=== PATIENT | female | born 1935 | race Caucasian/White ===

== ENCOUNTER → 2017-03-11 | Outpatient (CLI) | payer MEDICARE, BC ==
[~2017-03-11] MED LIST: AMLO5TAB2 PO; ASPI81CH CHEW; CARA1TAB6 PO; FINA1TAB16 PO; FINA5TAB2 PO; GENT0.3G EACH EYE; HYDR-3516 PO; ISOS30TA15; ISOS30TA3 PO; LIDO1PAD52 TOPICAL; NORC5TAB PO; PANT40TA3 PO; PERC7.5T13 PO; PRAV20TA2 PO; PRED1SUS RIGHT EYE; REST0.05 EACH EYE; TOBRSUS9 LEFT EYE; VALA500T PO
== END ==
LOC: OLAB 11:20
DX: R14.0 Abdominal distension (gaseous) (principal)

== ENCOUNTER → 2017-03-13 | Outpatient (CLI) | payer MEDICARE, BC | LOC: OLAB 11:12 | DX: K30 Functional dyspepsia (principal) | CPT/HCPCS: 36415; 82784; 83516; 87338 ==

== ENCOUNTER 2017-03-31 18:11 | Observation (INO) | payer MEDICARE, BC ==
[~2017-03-31] VITALS: Ht 165.1 cm; Wt 76.7 kg
[~2017-03-31 18:11] MED LIST changes: -CARA1TAB6 PO; -FINA1TAB16 PO; -ISOS30TA3 PO; -LIDO1PAD52 TOPICAL; -NORC5TAB PO; -PANT40TA3 PO; -PERC7.5T13 PO; -PRAV20TA2 PO
[2017-03-31 18:25] VITALS: BP 173/74; PULSE 85; RESP 20; TEMP 99.5; O2SAT 97
[2017-03-31] MEDS ORDERED: SODIUM CHLOR 0.9% 1000 ML INJ 1,000 ML IV SCH (18:27)
[2017-03-31] MEDS ORDERED: FAMOTIDINE 20 MG/2 ML VIAL IV PUSH ONE (18:30)
[2017-03-31] MEDS ORDERED: ONDANSETRON HCL 4 MG/2 ML VIAL IVP ONE (18:30)
[2017-03-31] MEDS ORDERED: MORPHINE SULFATE 4 MG/ML INJ IV PUSH ONE (18:30)
[2017-03-31 18:32] VITALS: BP 173/74; PULSE 84; RESP 20; TEMP 99.5; O2SAT 95
[2017-03-31 18:37] VITALS: RESP 18; O2SAT 96
[2017-03-31] MEDS ORDERED: CARA1TAB6 PO (18:45)
[2017-03-31] MEDS ORDERED: LIDO1PAD52 TOPICAL (18:45)
[2017-03-31] MEDS ORDERED: PRAV20TA2 PO (18:45)
[2017-03-31] MEDS ORDERED: NORC5TAB PO (18:45)
[2017-03-31] MEDS ORDERED: FINA1TAB16 PO (18:45)
[2017-03-31] MEDS ORDERED: PANT40TA3 PO (18:45)
[2017-03-31] MEDS ORDERED: ISOS30TA3 PO (18:45)
--- NOTE | 2017-03-31 18:48 | PD ---
HPI Chief Complaint: Pain: Acute or Chronic Time Seen by Provider: 18:16 Travel History International Travel<30 days: No Contact w/Intl Traveler<30days: No Traveled to known affect area: No History of Present Illness HPI 81-year-old female complains of chest pain epigastric pain and neck pain and shortness of breath and generalized malaise and weakness. Patient states that the symptoms started several days ago. Patient states that she started having substernal chest pressure intermittently and pain between the shoulder blades and the neck for the past several days. Patient has history of Sjogren syndrome. Patient has history of recurrent esophageal pain. Patient status post endoscopy 5 days ago. Patient was told that she has inflammation to the esophagus and stomach. Patient status post right partial lobectomy in the past. Patient has history hypertension, hyperlipidemia. Patient is a nonsmoker. Patient has family history of heart disease. Patient has history of CAD status post stents placement. Patient denies any headache. Patient denies nausea vomiting diarrhea. Patient denies any dysuria or frequency. Patient denies any vaginal discharge or bleeding. PFSH Past Medical History Asthma: No Autoimmune Disease: Yes (RHEUMATOID ARTHRITIS) Blood Disorders: No Heart Rhythm Problems: No Cancer: Yes Cardiac Catheterization: No Cardiovascular Problems: Yes (STENTS X 2, CAD ) High Cholesterol: No Chest Pain: No Congestive Heart Failure: No COPD: No Diabetes: No Diminished Hearing: No Diverticulitis: Yes (UNSURE) Endocrine: No Gastrointestinal Disorders: Yes (DIVERTICULITIS) GERD: No Genitourinary: No Hepatitis: No Hiatal Hernia: Yes Hypertension: Yes Immune Disorder: No Musculoskeletal: No Neurologic: No Psychiatric: No Reproductive: No Respiratory: Yes (RIGHT LOWER LOBE LOBECTOMY ) Sleep Apnea: No Thyroid Disease: No Ulcer: No Menopausal: Yes Past Surgical History Abdominal Surgery: Yes (appy) AICD: No Appendectomy: Yes Cardiac Surgery: Yes (2 cardiac stents) Coronary Artery Bypass Graft: No Ear Surgery: Yes (TUBES BOTH EARS) Endocrine Surgery: No Eye Surgery: No Genitourinary Surgery: No Gynecologic Surgery: Yes (hysterectomy 1970) Hysterectomy: Yes Joint Replacement: No Oral Surgery: No Pacemaker: No Thoracic Surgery: Yes (R LOWER LOBE LUNG REMOVED) Other Surgery: Yes (BILATERAL BREAST BX) Social History Alcohol Use: Yes (rarely) Tobacco Use: No Substance Use: No Allergies-Medications (Allergen,Severity, Reaction): Coded Allergies: Sulfa (Sulfonamide Antibiotics) (Unverified Allergy, Severe, Anaphylaxis, 02/04/17) amoxicillin (Unverified Allergy, Mild, nausea, 02/04/17) codeine (Unverified Allergy, Mild, constipation, 02/04/17) Reported Meds & Prescriptions Reported Meds & Active Scripts Active Restasis Opth 0.05% (Cyclosporine Opth 0.05%) 0.05% Emul 1 Drop EACH EYE BID Pred Forte Opth 1% (Prednisolone Acetate Opth 1%) 1% Susp 1 Drop RIGHT EYE BID Tobramycin-Dexamethasone Opth Drops 0.3-0.1 % Susp 1 Drop LEFT EYE QID Hydrocodone-Acetaminophen 5-325 mg Tab 1 Tab PO Q4H PRN Reported Valacyclovir (Valacyclovir HCl) 500 Mg Tab 500 Mg PO DIRECTED Genteal Severe Opth Gel (Hypromellose) 0.25-0.3% Gel 1 Drop EACH EYE HS PRN Isosorbide Dinitrate 30 Mg Tab Finasteride 5 Mg Tab 5 Mg PO DAILY Do not crush. Aspirin 81 Mg Chew 81 Mg CHEW DAILY Amlodipine (Amlodipine Besylate) 5 Mg Tab 5 Mg PO DAILY Review of Systems General / Constitutional: No: Fever Eyes: No: Visual changes HENT: No: Headaches Cardiovascular: Positive: Chest Pain or Discomfort Respiratory: Positive: Shortness of Breath Gastrointestinal: Positive: Abdominal Pain Genitourinary: No: Dysuria Musculoskeletal: No: Pain Skin: No Rash Neurologic: No: Weakness Psychiatric: No: Depression Endocrine: No: Polydipsia Hematologic/Lymphatic: No: Easy Bruising Physical Exam Narrative GENERAL: Well-nourished, well-developed patient. SKIN: Focused skin assessment warm/dry. HEAD: Normocephalic. EYES: No scleral icterus. No injection or drainage. NECK: Supple, trachea midline. No JVD or lymphadenopathy. CARDIOVASCULAR: Regular rate and rhythm without murmurs, gallops, or rubs. RESPIRATORY: Breath sounds equal bilaterally. No accessory muscle use. GASTROINTESTINAL: Abdomen soft, nondistended. Mild tenderness on palpation epigastric area. No rebound tenderness. No mass. MUSCULOSKELETAL: No cyanosis, or edema. BACK: Nontender without obvious deformity. No CVA tenderness. neurologic exam normal. Data Data Last Documented VS Vital Signs Date Time Temp Pulse Resp B/P (MAP) Pulse Ox O2 Delivery O2 Flow Rate FiO2 03/31/17 18:25 99.5 85 20 173/74 (107) 97 Orders Orders Complete Blood Count With Diff (03/31/17) Comprehensive Metabolic Panel (03/31/17) Prothrombin Time / Inr (Pt) (03/31/17:) Act Partial Throm Time (Ptt) (03/31/17:) Urinalysis - C+S If Indicated (03/31/17) Ct Abd/Pel W Iv Contrast(Rout) (03/31/17:) Iv Access Insert/Monitor (03/31/17) Ecg Monitoring (03/31/17) Oximetry (03/31/17) Morphine Inj (Morphine Inj) (03/31/17 18:30) Ondansetron Inj (Zofran Inj) (03/31/17 18:30) Sodium Chlor 0.9% 1000 Ml Inj (Ns 1000 M (03/31/17:) Electrocardiogram (03/31/17:) Famotidine Inj (Pepcid Inj) (03/31/17 18:30) Ct Pulmonary Angiogram (03/31/17:) MDM Medical Decision Making Medical Screen Exam Complete: Yes Emergency Medical Condition: Yes Differential Diagnosis Differential diagnosis including angina, OK, PE, pneumothorax, esophagitis, gastritis, PUD, pancreatitis, cholecystitis, colitis, UTI, pyelonephritis, nephrolithiasis. Narrative Course 81-year-old female with epigastric pain, substernal chest pain, neck pain upper back pain. History of Sjogren syndrome status post endoscopy. Lucien Doran MD Mar 31, 2017 18:48
--- NOTE | 2017-03-31 19:19 | PD ---
Physical Exam Narrative General: The patient is a well-developed well-nourished female in no acute distress. Head and Neck exam: Head is normocephalic atraumatic. Eyes: EOMI, pupils are equal round and reactive to light. Nose: Midline septum with pink mucous membranes Mouth: Dentition unremarkable. Tacky mucus membranes, however the patient does have a history of Sjogren's. Posterior oropharynx is not erythematous. No tonsillar hypertrophy. Uvula midline. Airway patent. Neck: No palpable lymphadenopathy. No nuchal rigidity. No thyromegaly. Cardiovascular: Regular rate and rhythm without murmurs, gallops, or rubs. . Lungs: Clear to auscultation bilaterally. No wheezes, rhonchi, or rales. Abdomen: Soft, with minimal discomfort on palpation of the midepigastric area. No other tenderness on palpation of the other quadrants of the abdomen. No guarding, rebound, or rigidity. Normal bowel sounds are audible. No tenderness on palpation of McBurney's point. Extremities: No clubbing, cyanosis, or edema. 2+ pulses in all 4 extremities. No calf tenderness on palpation. Back: No costovertebral angle tenderness to palpation. Neurologic Exam: Grossly nonfocal. Skin Exam: No rash noted. Intact skin that is warm and dry. Data Data Last Documented VS Vital Signs Date Time Temp Pulse Resp B/P (MAP) Pulse Ox O2 Delivery O2 Flow Rate FiO2 03/31/17 18:37 18 96 Room Air 03/31/17 18:32 89 03/31/17 18:32 99.5 Orders Orders Complete Blood Count With Diff (03/31/17 18:) Comprehensive Metabolic Panel (03/31/17 18:) Prothrombin Time / Inr (Pt) (03/31/17 18:) Act Partial Throm Time (Ptt) (03/31/17 18:27) Urinalysis - C+S If Indicated (03/31/17 18:) Ct Abd/Pel W Iv Contrast(Rout) (03/31/17 18:27) Iv Access Insert/Monitor (03/31/17 18:27) Ecg Monitoring (03/31/17 18:) Oximetry (03/31/17 18:27) Morphine Inj (Morphine Inj) (03/31/17 18:30) Ondansetron Inj (Zofran Inj) (03/31/17 18:30) Sodium Chlor 0.9% 1000 Ml Inj (Ns 1000 M (03/31/17 18:27) Electrocardiogram (03/31/17 18:27) Famotidine Inj (Pepcid Inj) (03/31/17 18:30) Ct Pulmonary Angiogram (03/31/17 18:27) B-Type Natriuretic Peptide (03/31/17 20:14) Ckmb (Isoenzyme) Profile (03/31/17 18:47) Troponin I (03/31/17 18:47) Iohexol 350 Inj (Omnipaque 350 Inj) (03/31/17 20:37) Morphine Inj (Morphine Inj) (03/31/17 21:00) Acetaminophen (Tylenol) (03/31/17 21:00) Admit Order (Ed Use Only) (03/31/17 21:10) Labs Laboratory Tests Test 03/31/17 18:47 White Blood Count 5.5 TH/MM3 Red Blood Count 3.39 MIL/MM3 Hemoglobin 10.5 GM/DL Hematocrit 30.8 % Mean Corpuscular Volume 91.0 FL Mean Corpuscular Hemoglobin 30.9 PG Mean Corpuscular Hemoglobin Concent 34.0 % Red Cell Distribution Width 12.9 % Platelet Count 191 TH/MM3 Mean Platelet Volume 7.6 FL Neutrophils (%) (Auto) 78.2 % Lymphocytes (%) (Auto) 10.0 % Monocytes (%) (Auto) 8.8 % Eosinophils (%) (Auto) 2.7 % Basophils (%) (Auto) 0.3 % Neutrophils # (Auto) 4.3 TH/MM3 Lymphocytes # (Auto) 0.5 TH/MM3 Monocytes # (Auto) 0.5 TH/MM3 Eosinophils # (Auto) 0.1 TH/MM3 Basophils # (Auto) 0.0 TH/MM3 CBC Comment DIFF FINAL Differential Comment Prothrombin Time 10.7 SEC Prothromb Time International Ratio 1.0 RATIO Activated Partial Thromboplast Time 31.8 SEC Blood Urea Nitrogen 12 MG/DL Creatinine 0.67 MG/DL Random Glucose 96 MG/DL Total Protein 6.8 GM/DL Albumin 3.0 GM/DL Calcium Level 8.8 MG/DL Alkaline Phosphatase 92 U/L Aspartate Amino Transf (AST/SGOT) 28 U/L Alanine Aminotransferase (ALT/SGPT) 32 U/L Total Bilirubin 0.3 MG/DL Sodium Level 138 MEQ/L Potassium Level 3.4 MEQ/L Chloride Level 100 MEQ/L Carbon Dioxide Level 27.3 MEQ/L Anion Gap 11 MEQ/L Estimat Glomerular Filtration Rate 85 ML/MIN Total Creatine Kinase 42 U/L Troponin I LESS THAN 0.02 NG/ML MDM Medical Record Reviewed: Yes Supervised Visit with ELODIA: No Narrative Course During the course of the patients emergency department visit, the patients history, examination, and differential diagnosis were reviewed with the patient. The patient had IV access obtained and blood work sent for analysis. The patient is on a personnel monitor with oximetry and blood pressure monitoring. An ECG was done on arrival. The patient's EKG shows a sinus rhythm without any acute ST segment elevation. The patient was initially evaluated by Dr. Doran. Please see his complete history and physical. The patient's case was checked out to me at the conclusion of his shift. The patient was initially provided famotidine 20 mg IV, Zofran 4 mg IV, morphine 2 mg IV, normal saline at 125 mL per hour. The patients laboratory studies were reviewed and remarkable for a white count of 5.5, hemoglobin 10.5, platelets 191 with 78.2 neutrophils, monocytes 8.8. CMP is remarkable for potassium of 3.4, GFR of 85, albumin 3.0, PT 10.7, PTT 31.8. CPK is 42, troponin I less than 0.02. Radiology studies were reviewed and remarkable for a CTA to rule out PE or evidence of pneumomediastinum related to endoscopy is negative for PE or pneumomediastinum. Stable bilateral lung nodules are noted. Recommend follow- up CT in [address] scan of the abdomen and pelvis shows no evidence of acute abdominal or pelvic process. No masses are identified, nonobstructing left renal stones, 11 mm nodule left lung base, PET scan/CT scan is recommended to further evaluate if clinically indicated. I discussed the patient's case further with the patient. She reports that she had a cardiac catheterization with 2 stents placed 3 years ago. She cannot recall when she last had a stress test although she denies having one done in the last year. She is agreeable with the plan to proceed with admission to the chest pain center for rule out serial cardiac enzyme protocol and stress testing to further evaluate the cause of her chest pain. The patients results were discussed with the patient, including the plan of care. I explained that further testing and/ or monitoring is indicated based on the patients history, examination, and/ or laboratory findings. Therefore, I recommended admission for additional evaluation. The patient expressed understanding and was agreeable with this plan. The patient was admitted to the hospital in stable condition and sent to a bed under the care of the chest pain center. Diagnosis Primary Impression: Chest pain, rule out acute myocardial infarction Admitting Information Admitting Physician Requests: Observation Colette Shin MD Mar 31, 2017 19:19
[2017-03-31 19:29] LABS: AUTOMATED NEUTROPHIL # 4.3 TH/MM3 (1.8-7.7); BASOPHIL % 0.3 % (0.0-2.0); EOSINOPHIL # 0.1 TH/MM3 (0-0.4); EOSINOPHIL % 2.7 % (0.0-4.0); HEMATOCRIT 30.8 % (35.0-46.0); HEMO FLAGS DIFF FINAL; LYMPHOCYTE # 0.5 TH/MM3 (1.0-4.8); MEAN CORPUSCULAR HEMOGLOBIN 30.9 PG (27.0-34.0); MONO % 8.8 % (0.0-8.0); NEUT % 78.2 % (16.0-70.0); PLATELET COUNT 191 TH/MM3 (150-450); RED BLOOD COUNT 3.39 MIL/MM3 (4.00-5.30); RED CELL DISTRIBUTION WIDTH 12.9 % (11.6-17.2); WHITE BLOOD COUNT 5.5 TH/MM3 (4.0-11.0)
[2017-03-31 19:42] LABS: APTT (PATIENT) 31.8 SEC (24.3-30.1); PROTHROMBIN TIME - PATIENT 10.7 SEC (9.8-11.6)
[2017-03-31 19:49] LABS: ANION GAP 11 MEQ/L (5-15); AST (GOT) 28 U/L (15-37); BICARBONATE 27.3 MEQ/L (21.0-32.0); BLOOD UREA NITROGEN 12 MG/DL (7-18); CHLORIDE 100 MEQ/L (98-107); GLOMERULAR FILTRATION RATE 85 ML/MIN (>89); POTASSIUM 3.4 MEQ/L (3.5-5.1); SODIUM (NA) 138 MEQ/L (136-145)
[2017-03-31 19:53] LABS: ALKALINE PHOSPHATASE 92 U/L (45-117); ALT (GPT) 32 U/L (10-53); TOTAL BILIRUBIN ADULT 0.3 MG/DL (0.2-1.0)
[2017-03-31 20:20] VITALS: BP 156/69; PULSE 88; RESP 20; TEMP 98.3; O2SAT 95
[2017-03-31] MEDS ORDERED: IOHEXOL 350 MG/ML 10 ML VIAL (for RAD DIAG) IVCONTRAST ONE (20:37)
[2017-03-31 20:38] LABS: CREATINE KINASE 42 U/L (26-192)
--- NOTE | 2017-03-31 20:47 | RADRPT ---
EXAM DATE/TIME: 03/31/2017 20:23 [facility] COMPARISON: CHEST SINGLE AP, May 21, 2016, 18:20. CT PULMONARY ANGIOGRAM, May 21, 2016, 19:26. INDICATIONS : Substernal chest pain and shortness of breath for five days. IV CONTRAST: 84 cc Omnipaque 350 (iohexol) IV RADIATION DOSE: 10.27 CTDIvol (mGy) MEDICAL HISTORY : Hypertension. Hernia, hiatal. SURGICAL HISTORY : Appendectomy. Hysterectomy. ENCOUNTER: Initial ACUITY: 4 - 6 days PAIN SCALE: 5/10 LOCATION: substernal chest TECHNIQUE: Volumetric scanning of the chest was performed using a pulmonary embolism protocol MIP images were re constructed. Using automated exposure control and adjustment of the mA and/or kV according to patien t size, radiation dose was kept as low as reasonably achievable to obtain optimal diagnostic quality images. DICOM format image data is available electronically for review and comparison. Follow-up recommendations for detected pulmonary nodules are based at a minimum on nodule size and pa tient risk factors according to Fleischner Society Guidelines. FINDINGS: Examination of the pulmonary vasculature demonstrates good filling of the main, lobar and segmental b ranches. There are no filling defects to suggest pulmonary embolism. Multiplanar reconstructions are also unremarkable. Multiple pneumatoceles are present the largest measuring 2 cm. There is subsegmental atelectasis in the both bases. A small right sided effusion is present. There are stable nodules in the right lower lobe and left upper lobe. Examination of the mediastinum demonstrates no abnormally enlarged lymph nodes by CT criteria. No axi llary or hilar abnormalities are identified. Coronary artery calcifications are present. There is sta ble soft tissue density in the right hilum and infrahilar region unchanged from 2016 The visualized u pper abdomen demonstrates no abnormality. CONCLUSION: 1. No evidence of pulmonary embolism. 2. Stable 6 mm nodules bilaterally. Followup examination in one year is recommended Jraad Cobian MD on March 31, 2017 at 20:41 Board Certified Radiologist. This report was verified electronically.
[2017-03-31] MEDS ORDERED: ACETAMINOPHEN 325 MG TAB PO ONE (21:00)
[2017-03-31] MEDS ORDERED: MORPHINE SULFATE 2 MG/ML INJ IV PUSH ONE (21:00)
--- NOTE | 2017-03-31 21:02 | RADRPT ---
EXAM DATE/TIME: 03/31/2017 20:23 [facility] COMPARISON: CT PULMONARY ANGIOGRAM, May 21, 2016, 19:26. INDICATIONS : Epigastric pain for five days. IV CONTRAST: 84 cc Omnipaque 350 (iohexol) IV ; Cumulative dose for multiple exams. ORAL CONTRAST: No oral contrast ingested. RADIATION DOSE: 15.87 CTDIvol (mGy) ; Combined studies MEDICAL HISTORY : Hypertension. Hernia, hiatal. SURGICAL HISTORY : Hysterectomy. Appendectomy. ENCOUNTER: Initial ACUITY: 4 - 6 days PAIN SCALE: 5/10 LOCATION: epigastric abdomen TECHNIQUE: Volumetric scanning of the abdomen and pelvis was performed. Using automated exposure control and ad justment of the mA and/or kV according to patient size, radiation dose was kept as low as reasonably achievable to obtain optimal diagnostic quality images. DICOM format image data is available electro nically for review and comparison. FINDINGS: A small right sided effusion is present. There is a 11 mm nodule in the left base. PET/CT scan is rec ommended to further evaluation if clinically indicated. The liver and spleen are normal in size and n o focal defects are identified. The gallbladder and pancreas are unremarkable. No intrahepatic or ext rahepatic ductal dilatation is seen. The adrenal glands are unremarkable. Bilateral parapelvic cysts are present in the kidneys. There are multiple stones within the left kidney without hydronephrosis t he largest measuring 4 mm in the lower pole. Examination of the pelvis demonstrates no evidence of free fluid or pelvic mass. No abnormally enlarg ed inguinal or retroperitoneal lymph nodes are present. The bladder is unremarkable. There is diverti culosis without evidence of diverticulitis. CONCLUSION: 1. No evidence of acute abdominal or pelvic process. No masses are identified. 2. Nonobstructing left renal stones 3. 11 mm nodule left base. PET/CT scan is recommended to further evaluation if clinically indicated. Jarad Cobian MD on March 31, 2017 at 20:54 Board Certified Radiologist. This report was verified electronically.
[2017-03-31] MEDS ORDERED: SODIUM CHLORIDE 0.9% FLUSH 10 ML FLUSH IV FLUSH PRN (21:30)
[2017-03-31 21:47] VITALS: O2SAT 97
[2017-04-01] VITALS: BP 152/62; PULSE 82; RESP 19; TEMP 98.5; O2SAT 98
[2017-04-01] MEDS: ACETAMINOPHEN 500 MG CPLT PO PRN ×3 (00:14→10:14)
[2017-04-01 04:00] VITALS: BP 149/68; PULSE 86; RESP 22; TEMP 98.4; O2SAT 98
--- NOTE | 2017-04-01 07:18 | EKG ---
Date Performed: 03/31/2017 Time Performed: 18:45:50 PTAGE: 81 years EKG: Sinus rhythm NORMAL ECG Since PREVIOUS TRACING , no significant change noted PREVIOUS TRACIN05/21/2016 18.24 DOCTOR: Nuha Osei Interpretating Date/Time 04/01/2017 07:18:08
[2017-04-01 08:02] VITALS: BP 163/72; PULSE 84; RESP 19; TEMP 98.2; O2SAT 95
[2017-04-01 08:45] LABS: CREATINE KINASE 55 U/L (26-192)
[2017-04-01] MEDS ORDERED: FAMOTIDINE 20 MG TAB PO SCH (09:00)
[2017-04-01] MEDS ORDERED: SODIUM CHLORIDE 0.9% FLUSH 10 ML FLUSH IV FLUSH SCH (09:00)
[2017-04-01] MEDS ORDERED: ISOSORBIDE MONONITRATE 30 MG TAB PO SCH (09:15)
[2017-04-01] MEDS ORDERED: amLODIPine BESYLATE 5 MG TAB PO SCH (09:15)
[2017-04-01] MEDS ORDERED: PANTOPRAZOLE SOD 40 MG DELAYED RELEASE TAB PO SCH (09:15)
[2017-04-01] MEDS ORDERED: POTASSIUM CHLORIDE 20 MEQ CONTROLLED RELEASE TAB PO ONE (09:15)
--- NOTE | 2017-04-01 09:20 | HHI.HP ---
HPI Primary Care Physician Unknown Chief Complaint Abdominal pain History of Present Illness This is an 81-year-old female that presents to ED complaining of abdominal pain. States that she has felt bloated since having an endoscopy last week at [facility]. She thinks the medications that were given to her or making her sick. She states the discomfort will radiate upward into her chest. She has also been occasionally short of breath. She states endoscopy revealed inflammation in her stomach and in her esophagus and was placed on Carafate and Protonix. She has history of CAD. She was following Dr. Meyers. States that her last stent was a few years ago. Last heart catheterization was a couple years ago and she states that her looked okay. Cannot recall recent stress testing. Denies blood in stool. Denies black or tarry stool. She's had no nausea or vomiting. No diaphoresis. Patient is unhappy with her manager landscape and is requesting have a different one and will like to do so at this hospitalization. Review of Systems General: Patient denies fevers, chills recent, and recent travel HEENT: Patient denies headache, sore throat, difficulty swallowing. Cardiovascular: Has the chest discomfort as mentioned above. Denies sensation of heart beating rapidly or irregularly. No syncope. Denies diaphoresis. Respiratory: She has been short of breath. Denies inspirational chest discomfort. Denies coughing wheezing or hemoptysis. GI: Complains of epigastric pain. Patient denies nausea, vomiting, diarrhea, bloody stools. Musculoskeletal: Patient denies joint pain or edema. Denies calf pain or edema. Neurovascular: Patient denies numbness, tingling, weakness in extremities. Denies headache. Endocrine: Denies polyuria and polydipsia. Hematologic: Denies easy bruising. Skin: Denies rash or itching. Past Family Social History Allergies: Coded Allergies: Sulfa (Sulfonamide Antibiotics) (Unverified Allergy, Severe, Anaphylaxis, 02/04/17) amoxicillin (Unverified Allergy, Mild, nausea, 02/04/17) codeine (Unverified Allergy, Mild, constipation, 02/04/17) Past Medical History CAD with stents. Rheumatoid arthritis. Right lower lobectomy. Hypertension, hyperlipidemia. Denies diabetes. Past Surgical History Right lower lobectomy. Heart catheterizations. Hysterectomy. Appendectomy. Reported Medications Reported Meds & Active Scripts Active Reported Lidocaine Patch 12 HR (Lidocaine) 5 % Patch 1 Patch TOPICAL DAILY Remove patch after 12 hours Pravastatin 20 Mg Tab 20 Mg PO HS [place] (Hydrocodone-Acetaminophen) 5-325 mg Tab 1 Tab PO BID PRN Carafate (Sucralfate) 1 Gram Tab 1 Gm PO TIDAC On empty stomach Pantoprazole (Pantoprazole Sodium) 40 Mg Tab 40 Mg PO DAILY Isosorbide Mononitrate ER (Isosorbide Mononitrate) 30 Mg Heavenly 30 Mg PO DAILY Finasteride (Finasteride (Alopecia)) 1 Mg Tab 1 Mg PO DAILY Aspirin 81 Mg Chew 81 Mg CHEW DAILY Amlodipine (Amlodipine Besylate) 5 Mg Tab 5 Mg PO DAILY Active Ordered Medications Current Medications Medications (Trade) Dose Ordered Sig/Akin Route Start Time Stop Time Status Last Admin (NS Flush) 2 ml UNSCH PRN IV FLUSH 03/31/17 21:30 (NS Flush) 2 ml BID IV FLUSH 04/01/17 09:00 (Tylenol) 500 mg Q4H PRN PO 03/31/17 21:30 04/01/17 04:20 (Pepcid) 20 mg BID PO 04/01/17 09:00 (Norvasc) 5 mg DAILY PO 04/01/17 09:15 UNV (Imdur) 30 mg DAILY PO 04/01/17 09:15 UNV (Protonix) 40 mg DAILY PO 04/01/17 09:15 UNV (Pravachol) 20 mg HS PO 04/01/17 21:00 UNV Non-Formulary Medication 1 mg DAILY PO 04/02/17 09:00 UNV Family History There is family history of heart disease. Social History Patient doesn't smoke. Physical Exam Vital Signs Vital Signs Date Time Temp Pulse Resp B/P (MAP) Pulse Ox O2 Delivery O2 Flow Rate FiO2 04/01/17 08:02 98.2 84 19 163/72 (102) 95 04/01/17 04:00 98.4 86 22 149/68 (95) 98 04/01/17 00:00 98.5 82 19 152/62 (92) 98 03/31/17 22:12 03/31/17 21:47 97 Nasal Cannula 2.00 03/31/17 20:20 98.3 88 20 156/69 (98) 95 03/31/17 18:37 18 96 Room Air 03/31/17 18:32 89 18 03/31/17 18:32 99.5 84 20 173/74 (107) 95 Room Air 03/31/17 18:25 99.5 85 20 173/74 (107) 97 Physical Exam GENERAL: This is a well-nourished, well-developed patient, in no apparent distress. Patient speaks in clear complete sentences. Patient is pleasant. HEENT: Head is atraumatic and normocephalic. Neck is supple without lymphadenopathy and trachea is midline. No JVD or carotid bruits. CARDIOVASCULAR: Regular rate and rhythm without murmurs, gallops, or rubs. RESPIRATORY: Clear to auscultation. Breath sounds equal bilaterally. No wheezes , rales, or rhonchi. Chest wall is nontender. No use of accessory muscles. GASTROINTESTINAL: Abdomen is nontender. Abdomen soft. Normal bowel sounds in all quadrants. MUSCULOSKELETAL: Patient is moving upper and lower extremities freely. No calf tenderness or edema, no Homans sign. Strong pulses in upper and lower extremities. NEUROLOGICAL: Patient is alert and oriented. Cranial nerves 2-12 are grossly intact. No focal deficits and speech is clear. SKIN: No rash and turgor is normal. Laboratory Laboratory Tests Test 03/31/17 18:47 04/01/17 00:02 04/01/17 06:25 White Blood Count 5.5 Red Blood Count 3.39 Hemoglobin 10.5 Hematocrit 30.8 Mean Corpuscular Volume 91.0 Mean Corpuscular Hemoglobin 30.9 Mean Corpuscular Hemoglobin Concent 34.0 Red Cell Distribution Width 12.9 Platelet Count 191 Mean Platelet Volume 7.6 Neutrophils (%) (Auto) 78.2 Lymphocytes (%) (Auto) 10.0 Monocytes (%) (Auto) 8.8 Eosinophils (%) (Auto) 2.7 Basophils (%) (Auto) 0.3 Neutrophils # (Auto) 4.3 Lymphocytes # (Auto) 0.5 Monocytes # (Auto) 0.5 Eosinophils # (Auto) 0.1 Basophils # (Auto) 0.0 CBC Comment DIFF FINAL Differential Comment Prothrombin Time 10.7 Prothromb Time International Ratio 1.0 Activated Partial Thromboplast Time 31.8 Blood Urea Nitrogen 12 Creatinine 0.67 Random Glucose 96 Total Protein 6.8 Albumin 3.0 Calcium Level 8.8 Alkaline Phosphatase 92 Aspartate Amino Transf (AST/SGOT) 28 Alanine Aminotransferase (ALT/SGPT) 32 Total Bilirubin 0.3 Sodium Level 138 Potassium Level 3.4 Chloride Level 100 Carbon Dioxide Level 27.3 Anion Gap 11 Estimat Glomerular Filtration Rate 85 Total Creatine Kinase 42 40 55 Troponin I LESS THAN 0.02 0.02 LESS THAN 0.02 B-Type Natriuretic Peptide 86 Result Diagram: 03/31/17184603/31/171846 Imaging Last [address] Angiography 03/31/171826 Signed Impressions: Service Date/Time: Friday, March 31, 2017 20:23 - CONCLUSION: 1. No evidence of pulmonary embolism. 2. Stable 6 mm nodules bilaterally. Followup examination in one year is recommended Jarad Cobian MD Abdomen/Pelvis CT 03/31/171826 Signed Impressions: Service Date/Time: Friday, March 31, 2017 20:23 - CONCLUSION: 1. No evidence of acute abdominal or pelvic process. No masses are identified. 2. Nonobstructing left renal stones 3. 11 mm nodule left base. PET/CT scan is recommended to further evaluation if clinically indicated. Jarad Cobian MD Course Initial EKG is sinus rhythm without significant ST segment depressions or elevations. Caprini VTE Risk Assessment Caprini VTE Risk Assessment: Mod/High Risk (score >= 2) Caprini Risk Assessment Model Point Value = 1 Point Value = 2 Point Value = 3 Point Value = 5 Age 41-60 Minor surgery BMI > 25 kg/m2 Swollen legs Varicose veins or History of unexplained or recurrent spontaneous Oral contraceptives or hormone replacement Sepsis (< 1 month) Serious lung disease, including pneumonia (< 1 month) Abnormal pulmonary function Acute myocardial infarction Congestive heart failure (< 1 month) History of inflammatory bowel disease Medical patient at bed rest Age 61-74 Arthroscopic surgery Major open surgery (> 45 min) Laparoscopic surgery (> 45 min) Malignancy Confined to bed (> 72 hours) Immobilizing plaster cast Central venous access Age >= 75 History of VTE Family history of VTE Factor V Leiden Prothrombin [id number] Lupus anticoagulant Anticardiolipin antibodies Elevated serum homocysteine Heparin-induced thrombocytopenia Other congenital or acquired thrombophilia Stroke (< 1 month) Elective arthroplasty Hip, pelvis, or leg fracture Acute spinal cord injury (< 1 month) Prophylaxis Regimen Total Risk Factor Score Risk Level Prophylaxis Regimen 0-1 Low Early ambulation 2 Moderate Order ONE of the following: *Sequential Compression Device (SCD) *Heparin 5000 units SQ BID 3-4 Higher Order ONE of the following medications: *Heparin 5000 units SQ TID *Enoxaparin/Lovenox 40 mg SQ daily (WT < 150 kg, CrCl > 30 mL/min) *Enoxaparin/Lovenox 30 mg SQ daily (WT < 150 kg, CrCl > 10-29 mL/min) *Enoxaparin/Lovenox 30 mg SQ BID (WT < 150 kg, CrCl > 30 mL/min) AND/OR *Sequential Compression Device (SCD) 5 or more Highest Order ONE of the following medications: *Heparin 5000 units SQ TID (Preferred with Epidurals) *Enoxaparin/Lovenox 40 mg SQ daily (WT < 150 kg, CrCl > 30 mL/min) *Enoxaparin/Lovenox 30 mg SQ daily (WT < 150 kg, CrCl > 10-29 mL/min) *Enoxaparin/Lovenox 30 mg SQ BID (WT < 150 kg, CrCl > 30 mL/min) AND *Sequential Compression Device (SCD) Assessment and Plan Assessment and Plan * Chest pain: Patient has had cardiac enzymes and EKG. She has been seen by Dr. Osei cardiology in the chest pain center and will undergo a Lexiscan. Also discussed this patient with Dr. Laura Lance whom has graciously agreed to set the patient. Patient is very uncomfortable with her manager landscape and requests a different one while she is hospitalized. I discussed this with Dr. Lance. * Abdominal pain: We'll defer to hospitalist and possible GI consult. * CAD: We'll reassess with stress testing. Patient needs to follow-up with meat boner. * Hypertension: Continue current medication. Patient is stable this time. She is agreeable to this plan. Agustín Laura Apr 01, 2017 09:20
[2017-04-01 12:02] VITALS: BP 160/70; PULSE 82; RESP 19; TEMP 98; O2SAT 96
[2017-04-01] MEDS ORDERED: REGADENOSON INJ 0.4 MG/5 ML SYR ONE (12:14)
[2017-04-01] MEDS ORDERED: AMINOPHYLLINE INJ 250 MG/10 ML VIAL ONE (12:47)
--- NOTE | 2017-04-01 12:57 | PD.CONS ---
[facility] Reason for Consult epigastric pain Primary Care Physician Unknown Diagnoses: History of Present Illness This is a 81-year-old female past medical history of coronary disease status post stent placement, chronic costochondritis, and recent dx of gastritis and esophagitis who presented with epigastric pain. Patient was initially admitted to the chest pain center for cardiac workup and wanted to be admitted for further GI workup so [facility] consulted for further work up. Patient stated that she was admitted to the hospital 2 weeks in hext due to epigastric pain, She had EGD done which showed esophagitis and gastritis. Patient was put on Protonix and Carafate. She stated that she went to the emergency department today because she did not know if the pain was due to her GI versus cardiac versus her chronic costochondritis. She stated she wanted to make sure that there are no other issues going on. Patient stated that chest pain/epigastric pain is intermittent occurring any time. Denied any association with food or exertion. Pain described as sometimes sharp or dull. Sometimes pain feels it going up to her throat. Denying nausea vomiting or diaphoresis with these chest pain. She states she is unsure that this is epigastric pain. Nothing makes the pain better or worse and resolves on its own. Patient stated that when she ambulates she does feel shortness of breathing secondary to the pain. She could not quantify how much exertion before she felt shortness of breathing. She denies any GI bleed. Denied taking any NSAIDs. All other review systems reviewed and negative. Past Family Social History Allergies: Coded Allergies: Sulfa (Sulfonamide Antibiotics) (Unverified Allergy, Severe, Anaphylaxis, 02/04/17) amoxicillin (Unverified Allergy, Mild, nausea, 02/04/17) codeine (Unverified Allergy, Mild, constipation, 02/04/17) Past Medical History CAD with stents. Rheumatoid arthritis. Right lower lobectomy. Hypertension, hyperlipidemia. Denies diabetes. Past Surgical History Right lower lobectomy. Heart catheterizations. Hysterectomy. Appendectomy. Reported Medications Lidocaine Patch 12 HR (Lidocaine) 5 % Patch 1 Patch TOPICAL DAILY Remove patch after 12 hours Pravastatin 20 Mg Tab 20 Mg PO HS [place] (Hydrocodone-Acetaminophen) 5-325 mg Tab 1 Tab PO BID PRN Carafate (Sucralfate) 1 Gram Tab 1 Gm PO TIDAC On empty stomach Pantoprazole (Pantoprazole Sodium) 40 Mg Tab 40 Mg PO DAILY Isosorbide Mononitrate ER (Isosorbide Mononitrate) 30 Mg Heavenly 30 Mg PO DAILY Finasteride (Finasteride (Alopecia)) 1 Mg Tab 1 Mg PO DAILY Aspirin 81 Mg Chew 81 Mg CHEW DAILY Amlodipine (Amlodipine Besylate) 5 Mg Tab 5 Mg PO DAILY Active Ordered Medications Current Medications Morphine Sulfate (Morphine Inj) 2 mg ONCE ONCE IV PUSH Last administered on 19:14; Start 03/31/17 at 18:30; Stop 03/31/17 at 18:33; Status DC Ondansetron HCl (Zofran Inj) 4 mg ONCE ONCE IVP Last administered on 19:14; Start 03/31/17 at 18:30; Stop 03/31/17 at 18:33; Status DC Sodium Chloride 1,000 ml @ 125 mls/hr Q8H IV Last administered on 03/31/17 19 :13; Start 03/31/17 at 18:27; Stop 04/01/17 at 02:26; Status DC Famotidine (Pepcid Inj) 20 mg ONCE ONCE IV PUSH Last administered on 19:14; Start 03/31/17 at 18:30; Stop 03/31/17 at 18:33; Status DC Iohexol (Omnipaque 350 Inj) 84 ml STK-MED ONCE IVCONTRAST Last administered on 03/31/17 20:37; Start 03/31/17 at 20:37; Stop 03/31/17 at 20:38; Status DC Morphine Sulfate (Morphine Inj) 2 mg ONCE ONCE IV PUSH Last administered on 21:12; Start 03/31/17 at 21:00; Stop 03/31/17 at 21:01; Status DC Acetaminophen (Tylenol) 650 mg ONCE ONCE PO Last administered on 03/31/17 21: 11; Start 03/31/17 at 21:00; Stop 03/31/17 at 21:01; Status DC Sodium Chloride (NS Flush) 2 ml UNSCH PRN IV FLUSH FLUSH AFTER USING IV ACCESS ; Start 03/31/17 at 21:30 Sodium Chloride (NS Flush) 2 ml BID IV FLUSH Last administered on 04/01/17 10 :14; Start 04/01/17 at 09:00 Acetaminophen (Tylenol) 500 mg Q4H PRN PO HEADACHE Last administered on 10:14; Start 03/31/17 at 21:30 Famotidine (Pepcid) 20 mg BID PO Last administered on 04/01/17 10:13; Start 04/01/17 at 09:00 Amlodipine Besylate (Norvasc) 5 mg DAILY PO Last administered on 04/01/17 10: 14; Start 04/01/17 at 09:15 Isosorbide Mononitrate (Imdur) 30 mg DAILY@0700 PO Last administered on 10:14; Start 04/01/17 at 09:15 Pantoprazole Sodium (Protonix) 40 mg DAILY PO ; Start 04/01/17 at 09:15; Status Future Hold Pravastatin Sodium (Pravachol) 20 mg HS PO ; Start 04/01/17 at 21:00 Patient Own Medication PT OWN MED: FINASTER... DAILY PO ; Start 04/02/17 at 09: 00; Status Future Hold Potassium Chloride (KCl) 20 meq NOW ONCE PO Last administered on 04/01/17 10 :13; Start 04/01/17 at 09:15; Stop 04/01/17 at 09:42; Status DC Aspirin (Aspirin Chew) 81 mg DAILY CHEW ; Start 04/02/17 at 09:00 Regadenoson (Lexiscan Inj) 0.4 mg STK-MED ONCE .ROUTE Last administered on 12:14; Start 04/01/17 at 12:14; Stop 04/01/17 at 12:15; Status DC Aminophylline (Aminophylline Inj) 250 mg STK-MED ONCE .ROUTE ; Start 04/01/17 at 12:47; Stop 04/01/17 at 12:48; Status DC Family History reviewed with patient Social History patient stated she is independent. Denied any tobacco or alcohol use. Physical Exam Vital Signs Vital Signs Date Time Temp Pulse Resp B/P (MAP) Pulse Ox O2 Delivery O2 Flow Rate FiO2 04/01/17 10:23 Nasal Cannula 2.00 04/01/17 08:02 98.2 84 19 163/72 (102) 95 04/01/17 04:00 98.4 86 22 149/68 (95) 98 04/01/17 00:00 98.5 82 19 152/62 (92) 98 03/31/17 22:12 03/31/17 21:47 97 Nasal Cannula 2.00 03/31/17 20:20 98.3 88 20 156/69 (98) 95 03/31/17 18:37 18 96 Room Air 03/31/17 18:32 89 18 03/31/17 18:32 99.5 84 20 173/74 (107) 95 Room Air 03/31/17 18:25 99.5 85 20 173/74 (107) 97 Physical Exam GENERAL: This is a well-nourished, well-developed patient, in no apparent distress. SKIN: No rashes, ecchymoses or lesions. Cool and dry. HEAD: Atraumatic. Normocephalic. No temporal or scalp tenderness. EYES: Pupils equal round and reactive. Extraocular motions intact. No scleral icterus. No injection or drainage. ENT: Nose without bleeding, purulent drainage or septal hematoma. Throat without erythema, tonsillar hypertrophy or exudate. Uvula midline. Airway patent. NECK: Trachea midline. No JVD or lymphadenopathy. Supple, nontender, no meningeal signs. CARDIOVASCULAR: Regular rate and rhythm without murmurs, gallops, or rubs. RESPIRATORY: Clear to auscultation. Breath sounds equal bilaterally. No wheezes , rales, or rhonchi. GASTROINTESTINAL: Abdomen soft and nondistended. + TTP in epigastric area No hepato-splenomegaly, or palpable masses. No guarding. MUSCULOSKELETAL: Extremities without clubbing, cyanosis, or edema. No joint tenderness, effusion, or edema noted. No calf tenderness. Negative Homans sign bilaterally. NEUROLOGICAL: Awake and alert. Cranial nerves II through XII intact. Motor and sensory grossly within normal limits. Five out of 5 muscle strength in all muscle groups. Normal speech. Laboratory Laboratory Tests Test 03/31/17 18:47 04/01/17 00:02 04/01/17 06:25 White Blood Count 5.5 Red Blood Count 3.39 Hemoglobin 10.5 Hematocrit 30.8 Mean Corpuscular Volume 91.0 Mean Corpuscular Hemoglobin 30.9 Mean Corpuscular Hemoglobin Concent 34.0 Red Cell Distribution Width 12.9 Platelet Count 191 Mean Platelet Volume 7.6 Neutrophils (%) (Auto) 78.2 Lymphocytes (%) (Auto) 10.0 Monocytes (%) (Auto) 8.8 Eosinophils (%) (Auto) 2.7 Basophils (%) (Auto) 0.3 Neutrophils # (Auto) 4.3 Lymphocytes # (Auto) 0.5 Monocytes # (Auto) 0.5 Eosinophils # (Auto) 0.1 Basophils # (Auto) 0.0 CBC Comment DIFF FINAL Differential Comment Prothrombin Time 10.7 Prothromb Time International Ratio 1.0 Activated Partial Thromboplast Time 31.8 Blood Urea Nitrogen 12 Creatinine 0.67 Random Glucose 96 Total Protein 6.8 Albumin 3.0 Calcium Level 8.8 Alkaline Phosphatase 92 Aspartate Amino Transf (AST/SGOT) 28 Alanine Aminotransferase (ALT/SGPT) 32 Total Bilirubin 0.3 Sodium Level 138 Potassium Level 3.4 Chloride Level 100 Carbon Dioxide Level 27.3 Anion Gap 11 Estimat Glomerular Filtration Rate 85 Total Creatine Kinase 42 40 55 Troponin I LESS THAN 0.02 0.02 LESS THAN 0.02 B-Type Natriuretic Peptide 86 Result Diagram: 03/31/17184603/31/1718[address] Angiography 03/31/171826 Signed Impressions: Service Date/Time: Friday, March 31, 2017 20:23 - CONCLUSION: 1. No evidence of pulmonary embolism. 2. Stable 6 mm nodules bilaterally. Followup examination in one year is recommended Jarad Cobian MD Abdomen/Pelvis CT 03/31/171826 Signed Impressions: Service Date/Time: Friday, March 31, 2017 20:23 - CONCLUSION: 1. No evidence of acute abdominal or pelvic process. No masses are identified. 2. Nonobstructing left renal stones 3. 11 mm nodule left base. PET/CT scan is recommended to further evaluation if clinically indicated. Jarad Cobian MD Assessment and Plan Assessment and Plan 81-year-old female with history of coronary disease presented with chest pain versus epigastric pain Chest pain vs epigastric pain -From history and exam pain seems more to be in the epigastric area. Pain is also reproducible in the epigastric area. She was initially admitted to the chest pain center. Chest pain center clear patient if nuclear stress test is negative. -CT abdomen/pelvis scan reviewed negative. -Patient had a recent EGD done which showed gastritis/esophagitis. Most likely pain is due to gastritis. -Continue Carafate and Protonix as recommended by previous GI physician. I asked patient if she wanted me to consult another GI physician and she declined. She stated that she will find another one as outpatient follow-up. Lung nodules -from imaging ranging 6-11 mm. -Follow up with primary care physician regards to this. Radiologist recommended repeat imaging in 1 year for stabilization. Coronary artery disease/gastritis/esophagitis -Resume home medication. -Avoid NSAIDs. Anemia -Patient has no active signs of bleeding. -Can follow-up as outpatient. Discussed Condition With If nuclear stress test is negative patient can be discharged home. Laura Lance MD Apr 01, 2017 12:57
--- NOTE | 2017-04-01 13:38 | RADRPT ---
EXAM DATE/TIME: 04/01/2017 11:36 [place] COMPARISON: No previous studies available for comparison. INDICATIONS : Chest pain and dyspnea. Angina. DOSE: 25.7 mCi Tc99m Myoview at stress. 8.3 mCi Tc99m Myoview at rest. 0.4 mg Lexiscan STRESS SYMPTOMS: Stomach cramps and dyspnea. MEDICATIONS: 1.) 100 mg Aminophylline IV EJECTION FRACTION: 63% MEDICAL HISTORY : Rheumatoid arthritis. Hypertension. Cardiovascular disease SURGICAL HISTORY : Hysterectomy. Lobectomy. Angioplasty. ENCOUNTER: Initial ACUITY: 1 day PAIN SCALE: 0/10 LOCATION: Bilateral chest TECHNIQUE: The patient underwent pharmacologic stress with infusion of prescribed dose. Continuous ECG tracing was monitored during stress. Gated SPECT imaging was performed after stress and conventional SPECT i maging was performed at rest. The examination was performed on a SPECT/CT scanner, both attenuation and non-corrected datasets were reviewed. FINDINGS: DISTRIBUTION: The maximum perfused segment at stress is in the inferior wall. PERFUSION STUDY: The pattern of perfusion at stress is within normal limits. GATED STUDY: There is intact wall motion and thickening without hypokinetic or dyskinetic segments. CONCLUSION: 1. No reversible perfusion defect to indicate stress-induced myocardial ischemia identified. RISK CATEGORY: Low (<1% Annual Mortality Rate) Eh Castro MD on April 01, 2017 at 13:36 Board Certified Radiologist. This report was verified electronically.
--- NOTE | 2017-04-01 14:09 | HHI.DCPOC ---
Discharge Care Plan Diagnosis: (1) Epigastric abdominal pain (2) Chest pain Goals to Promote Your Health * To prevent worsening of your condition and complications * To maintain your health at the optimal level Directions to Meet Your Goals Take your medications as prescribed Follow your dietary instruction Follow activity as directed Keep your appointments as scheduled Take your immunizations and boosters as scheduled If your symptoms worsen call your PCP, if no PCP go to Urgent Care Center or Emergency Room Smoking is Dangerous to Your Health. Avoid second hand smoke Call the 24-hour hour crisis hotline for domestic abuse at Laura Lance MD Apr 01, 2017 14:09
--- NOTE | 2017-04-01 14:11 | HHI.DS ---
Discharge Summary Admission Date Mar 31, 2017 at 21:12 Discharge Date: Apr 01, 2017 Admitting Diagnosis CP R/O MT, h/o CAD (1) Epigastric abdominal pain ICD Code: R10.13 - Epigastric pain Diagnosis: Principal (2) Gastritis ICD Code: K29.70 - Gastritis, unspecified, without bleeding Diagnosis: Principal (3) Lung nodule, multiple ICD Code: R91.8 - Other nonspecific abnormal finding of lung field Diagnosis: Secondary Procedures nuclear stress test Brief History - From Admission This is a 81-year-old female past medical history of coronary disease status post stent placement, chronic costochondritis, and recent dx of gastritis and esophagitis who presented with epigastric pain. Patient was initially admitted to the chest pain center for cardiac workup and wanted to be admitted for further GI workup so [facility] consulted for further work up. Patient stated that she was admitted to the hospital 2 weeks in [place] due to epigastric pain, She had EGD done which showed esophagitis and gastritis. Patient was put on Protonix and Carafate. She stated that she went to the emergency department today because she did not know if the pain was due to her GI versus cardiac versus her chronic costochondritis. She stated she wanted to make sure that there are no other issues going on. Patient stated that chest pain/epigastric pain is intermittent occurring any time. Denied any association with food or exertion. Pain described as sometimes sharp or dull. Sometimes pain feels it going up to her throat. Denying nausea vomiting or diaphoresis with these chest pain. She states she is unsure that this is epigastric pain. Nothing makes the pain better or worse and resolves on its own. Patient stated that when she ambulates she does feel shortness of breathing secondary to the pain. She could not quantify how much exertion before she felt shortness of breathing. She denies any GI bleed. Denied taking any NSAIDs. All other review systems reviewed and negative. CBC/BMP: 03/31/17184603/31/171846 Significant Findings Laboratory Tests Test 03/31/17 18:47 04/01/17 00:02 04/01/17 06:25 Red Blood Count 3.39 MIL/MM3 (4.00-5.30) Hemoglobin 10.5 GM/DL (11.6-15.3) Hematocrit 30.8 % (35.0-46.0) Neutrophils (%) (Auto) 78.2 % (16.0-70.0) Monocytes (%) (Auto) 8.8 % (0.0-8.0) Lymphocytes # (Auto) 0.5 TH/MM3 (1.0-4.8) Activated Partial Thromboplast Time 31.8 SEC (24.3-30.1) Albumin 3.0 GM/DL (3.4-5.0) Potassium Level 3.4 MEQ/L (3.5-5.1) Estimat Glomerular Filtration Rate 85 ML/MIN (>89) Troponin I LESS THAN 0.02 NG/ML LESS THAN 0.02 NG/ML Imaging Last Impressions Myocardial Perfusion Scan Nuc Med 04/01/17 0000 Signed Impressions: Service Date/Time: Saturday, April 01, 2017 11:36 - CONCLUSION: 1. No reversible perfusion defect to indicate stress-induced myocardial ischemia identified. RISK CATEGORY: Low (<1%% Annual Mortality Rate) Eh Castro MD CT Angiography 03/31/171826 Signed Impressions: Service Date/Time: Friday, March 31, 2017 20:23 - CONCLUSION: 1. No evidence of pulmonary embolism. 2. Stable 6 mm nodules bilaterally. Followup examination in one year is recommended Jarad Cobian MD Abdomen/Pelvis CT 03/31/171826 Signed Impressions: Service Date/Time: Friday, March 31, 2017 20:23 - CONCLUSION: 1. No evidence of acute abdominal or pelvic process. No masses are identified. 2. Nonobstructing left renal stones 3. 11 mm nodule left base. PET/CT scan is recommended to further evaluation if clinically indicated. Jarad Cobian MD PE at Discharge GENERAL: in NAD SKIN: Warm and dry. HEAD: Normocephalic. EYES: No scleral icterus. No injection or drainage. NECK: Supple, trachea midline. No JVD or lymphadenopathy. CARDIOVASCULAR: Regular rate and rhythm without murmurs, gallops, or rubs. RESPIRATORY: Breath sounds equal bilaterally. No accessory muscle use. GASTROINTESTINAL: Abdomen soft, nondistended. + epigastric pain MUSCULOSKELETAL: No cyanosis, or edema. BACK: Nontender without obvious deformity. No CVA tenderness. Pt update on day of discharge see consult for further information Hospital Course 81-year-old female with history of coronary disease presented with chest pain versus epigastric pain Chest pain vs epigastric pain -From history and exam pain seems more to be in the epigastric area. Pain is also reproducible in the epigastric area. She was initially admitted to the chest pain center. nuclear stress test was done and negative. she was cleared from a cardiac stand point from chest pain center. -CT abdomen/pelvis scan reviewed negative. -Patient had a recent EGD done which showed gastritis/esophagitis. Most likely pain is due to gastritis. -Continue Carafate and Protonix as recommended by previous GI physician. I asked patient if she wanted me to consult another GI physician and she declined. She stated that she will find another one as outpatient follow-up. Lung nodules -from imaging ranging 6-11 mm. -Follow up with primary care physician regards to this. Radiologist recommended repeat imaging in 1 year for stabilization. Coronary artery disease/gastritis/esophagitis -home medication continue. -Avoid NSAIDs. Anemia -Patient has no active signs of bleeding. -Can follow-up as outpatient. Pt Condition on Discharge: Good Discharge Disposition: Discharge Home Discharge Time: > 30 minutes Discharge Instructions DIET: Follow Instructions for: Heart Healthy Diet Activities you can perform: Regular-No Restrictions Follow up Referrals: Gastroenterology - 2 Weeks PCP Follow-up - 1 Week Continued Medications: Amlodipine (Amlodipine) 5 Mg Tab 5 MG PO DAILY for Blood Pressure Management, #30 TAB 0 Refills Aspirin (Aspirin) 81 Mg Chew 81 MG CHEW DAILY, TAB 0 Refills Finasteride (Alopecia) (Finasteride) 1 Mg Tab 1 MG PO DAILY Hydrocodone-Acetaminophen ([place]) 5-325 mg Tab 1 TAB PO BID PRN for PAIN, TAB 0 Refills Isosorbide Mononitrate ER (Isosorbide Mononitrate ER) 30 Mg Heavenly 30 MG PO DAILY for Prevent Chest Pain, #30 TAB 0 Refills Lidocaine Patch 12 HR (Lidocaine Patch 12 HR) 5 % Patch 1 PATCH TOPICAL DAILY for Pain Management, #1 BOX 0 Refills Remove patch after 12 hours Pantoprazole (Pantoprazole) 40 Mg Tab 40 MG PO DAILY for Reflux, #30 TAB 0 Refills Pravastatin (Pravastatin) 20 Mg Tab 20 MG PO HS for Cholesterol Management, #30 TAB 0 Refills Sucralfate (Carafate) 1 Gram Tab 1 GM PO TIDAC for Reflux, #90 TAB 0 Refills On empty stomach Laura Lance MD Apr 01, 2017 14:11
--- NOTE | 2017-04-01 17:05 | TR ---
Date Performed: 04/01/2017 Time Performed: 12:26:02 DOCTOR: Nuha Osei DRUG LIST: CLINICAL HISTORY: ANGINA REASON FOR TEST: Angina REASON FOR ENDING: OBSERVATION: CONCLUSION: Lexiscan stress test was performed under standard four minute protocol. Radionuclid e was injected one minute prior to ending the test. No electrocardiographic abormalities were present to suggest ischemia. Nuclear imaging and interpretation are pending. COMMENTS:
[2017-04-01] MEDS ORDERED: PRAVASTATIN SOD 20 MG TAB PO SCH (21:00)
[2017-04-02] MEDS ORDERED: [UNRECOGNIZED DRUG - OTHER] PO SCH (09:00)
[2017-04-02] MEDS ORDERED: ASPIRIN 81 MG CHEW TAB CHEW SCH (09:00)
[2017-04-02] MEDS ORDERED: FINASTERIDE 1 MG PO SCH (09:00)
== END 2017-04-01 18:18 | disposition home or self-care (01) ==
LOC: NEPE 18:11 → NEDA 21:12 → N04A 22:19
PROVIDERS: ADMIT Family Medicine; ATTEND Family Medicine
DX: R07.9 Chest pain, unspecified (principal); M54.2 Cervicalgia; R53.1 Weakness; R53.81 Other malaise; M54.9 Dorsalgia, unspecified; I10 Essential (primary) hypertension; I25.10 Atherosclerotic heart disease of native coronary artery without angina pectoris; R06.02 Shortness of breath; R10.13 Epigastric pain; D64.9 Anemia, unspecified; N20.0 Calculus of kidney; M06.9 Rheumatoid arthritis, unspecified; K29.70 Gastritis, unspecified, without bleeding; R91.8 Other nonspecific abnormal finding of lung field; I20.9 Angina pectoris, unspecified; M35.00 Sjogren syndrome, unspecified; Z95.5 Presence of coronary angioplasty implant and graft; Z79.899 Other long term (current) drug therapy; Z79.82 Long term (current) use of aspirin
CPT/HCPCS: 71275; 74177; 78452; 80053; 82550; 83880; 84484; 85025; 85610; 85730; 93005; 93017; 96361; 96374; 96375; 96376; A9502; G0378; J0280; J2270; J2405; J2785; J7030; Q9967

== ENCOUNTER 2017-04-14 09:56 | Emergency (ER) | payer MEDICARE, BC ==
[~2017-04-14] VITALS: Ht 165.1 cm; Wt 71.0 kg
[~2017-04-14 09:56] MED LIST changes: +CARA1TAB6 PO; +FINA1TAB16 PO; -FINA5TAB2 PO; -GENT0.3G EACH EYE; -HYDR-3516 PO; -ISOS30TA15; +ISOS30TA3 PO; +LIDO1PAD52 TOPICAL; +NORC5TAB PO; +PANT40TA3 PO; +PRAV20TA2 PO; -PRED1SUS RIGHT EYE; -REST0.05 EACH EYE; -TOBRSUS9 LEFT EYE; -VALA500T PO
[2017-04-14 09:59] VITALS: BP 179/85; PULSE 94; RESP 18; TEMP 97.4; O2SAT 95
[2017-04-14 10:22] VITALS: BP 134/78; PULSE 95; RESP 18; O2SAT 96
[2017-04-14] MEDS ORDERED: SODIUM CHLOR 0.9% 1000 ML INJ 1,000 ML IV SCH (10:34)
[2017-04-14] MEDS ORDERED: ONDANSETRON HCL 4 MG/2 ML VIAL IVP ONE ×2 (10:45→12:15)
[2017-04-14] MEDS ORDERED: SODIUM CHLORIDE 0.9% FLUSH 10 ML FLUSH IV FLUSH PRN (10:45)
[2017-04-14] MEDS ORDERED: HYDROmorphone HCL PF 1 MG/ML VIAL IV PUSH ONE ×2 (11:00→12:15)
[2017-04-14] MEDS ORDERED: ALUMINUM/MAGNESIUM/SIMETH 30 ML CUP PO ONE (11:00)
[2017-04-14] MEDS ORDERED: LIDOCAINE VISCOUS 2% SOLN 15 ML UDC PO ONE (11:00)
[2017-04-14 11:21] LABS: AUTOMATED NEUTROPHIL # 6.1 TH/MM3 (1.8-7.7); BASOPHIL % 0.2 % (0.0-2.0); EOSINOPHIL # 0.1 TH/MM3 (0-0.4); EOSINOPHIL % 0.8 % (0.0-4.0); HEMATOCRIT 36.6 % (35.0-46.0); LYMPH % 13.6 % (9.0-44.0); LYMPHOCYTE # 1.1 TH/MM3 (1.0-4.8); MEAN CELL VOLUME 89.4 FL (80.0-100.0); MEAN CORPUSCULAR HEMOGLOBIN 31.8 PG (27.0-34.0); MEAN CORPUSCULAR HGB CONC 35.6 % (32.0-36.0); MEAN PLATELET VOLUME 7.5 FL (7.0-11.0); MONO % 6.7 % (0.0-8.0); MONOCYTE # 0.5 TH/MM3 (0-0.9); NEUT % 78.7 % (16.0-70.0); PLATELET COUNT 465 TH/MM3 (150-450); RED BLOOD COUNT 4.09 MIL/MM3 (4.00-5.30); RED CELL DISTRIBUTION WIDTH 13.8 % (11.6-17.2); WHITE BLOOD COUNT 7.7 TH/MM3 (4.0-11.0)
[2017-04-14] MEDS ORDERED: HYDROmorphone HCL PF 2 MG/ML VIAL IV PUSH ONE ×2 (11:30→13:00)
[2017-04-14 11:38] LABS: ALKALINE PHOSPHATASE 79 U/L (45-117); TOTAL BILIRUBIN ADULT 0.3 MG/DL (0.2-1.0); TOTAL PROTEIN 7.7 GM/DL (6.4-8.2)
[2017-04-14 11:54] LABS: ALBUMIN 3.6 GM/DL (3.4-5.0); ALT (GPT) 21 U/L (10-53); AST (GOT) 20 U/L (15-37); BLOOD UREA NITROGEN 17 MG/DL (7-18); CALCIUM 9.4 MG/DL (8.5-10.1); CHLORIDE 102 MEQ/L (98-107); CREATININE 1.07 MG/DL (0.50-1.00); GLOMERULAR FILTRATION RATE 49 ML/MIN (>89); GLUCOSE,RANDOM 83 MG/DL (74-106); LIPASE 88 U/L (73-393); SODIUM (NA) 139 MEQ/L (136-145)
[2017-04-14] MEDS ORDERED: methylPREDNISolone SOD SUCC 125 MG/2 ML VIAL IV PUSH ONE (12:15)
[2017-04-14] MEDS ORDERED: predniSONE 10 MG TAB PO ONE (12:15)
[2017-04-14 12:55] VITALS: PULSE 80
[2017-04-14] MEDS ORDERED: IOHEXOL 350 MG/ML 10 ML VIAL (for RAD DIAG) IVCONTRAST ONE (13:07)
--- NOTE | 2017-04-14 13:26 | RADRPT ---
EXAM DATE/TIME: 04/14/2017 13:02 [facility] COMPARISON: CT PULMONARY ANGIOGRAM, May 21, 2016, 19:26. CT ABDOMEN & PELVIS W CONTRAST, March 31, 2017, 20:23. INDICATIONS : Epigastric pain radiating to back. IV CONTRAST: 92 cc Omnipaque 350 (iohexol) IV ORAL CONTRAST: No oral contrast ingested. RADIATION DOSE: 10.48 CTDIvol (mGy) MEDICAL HISTORY : Hypertension. Cardiovascular disease Diverticulitis. SURGICAL HISTORY : Hysterectomy. Appendectomy.Hiatal hernia ENCOUNTER: Initial ACUITY: 1 day PAIN SCALE: 5/10 LOCATION: mid abdomen TECHNIQUE: Volumetric scanning of the abdomen and pelvis was performed. Using automated exposure control and ad justment of the mA and/or kV according to patient size, radiation dose was kept as low as reasonably achievable to obtain optimal diagnostic quality images. DICOM format image data is available electro nically for review and comparison. FINDINGS: LOWER LUNGS: 11 mm nodule again seen within the lateral basilar segment of the left lower lobe. This is unchanged. Small hiatal hernia. Tiny right effusion. LIVER: Homogeneous density without lesion. There is no dilation of the biliary tree. No calcified gallston es. SPLEEN: Normal size without lesion. PANCREAS: Within normal limits. KIDNEYS: Normal in size and shape. There is no mass or hydronephrosis. A 5 mm nonobstructing lower pole stone on the left. ADRENAL GLANDS: Within normal limits. VASCULAR: There is no aortic aneurysm. BOWEL/MESENTERY: The stomach, small bowel, and colon demonstrate no acute abnormality. There is no free intraperitone al air or fluid. Colonic diverticulosis without acute abnormality. ABDOMINAL WALL: Within normal limits. RETROPERITONEUM: There is no lymphadenopathy. BLADDER: No wall thickening or mass. REPRODUCTIVE: Within normal limits. INGUINAL: There is no lymphadenopathy or hernia. MUSCULOSKELETAL: A degenerative and scoliotic spine. CONCLUSION: 1. No acute abnormality to explain the patient's pain. 2. 11 mm nodule in the left lower lobe is unchanged dating back to 2015. This likely is benign. 3. 5 mm nonobstructing left renal stone. 4. Colonic diverticulosis without acute inflammation. 5. Tiny right effusion. Wang Scott Jr., MD on April 14, 2017 at 13:19 Board Certified Radiologist. This report was verified electronically.
[2017-04-14 13:34] VITALS: BP 125/60
[2017-04-14 14:07] LABS: BILIRUBIN, URINE NEG (NEG); BLOOD, URINE NEG (NEG); GLUCOSE,URINE NEG (NEG); HYALINE CAST, URINE 6 /lpf (RARE); KETONE, URINE NEG (NEG); NITRITE,URINE NEG (NEG); PH, URINE 7.5 (5.0-8.5); URINE COLOR YELLOW (YELLW/STRAW); URINE LEUKOCYTE ESTERASE NEG (NEG)
[2017-04-14] MEDS ORDERED: PERC7.5T13 PO (14:07)
--- NOTE | 2017-04-14 14:09 | PD ---
HPI Chief Complaint: Abdominal Pain Time Seen by Provider: 10:34 Travel History International Travel<30 days: No Contact w/Intl Traveler<30days: No Traveled to known affect area: No History of Present Illness HPI The patient is 81 years old. She complains of abdominal pain epigastric right upper quadrant with radiation to the back. Patient states his pain is very severe. Lortab at home was not been helpful. She is a history of amyloidosis and Sjogren's disease. She has been on prednisone for quite some time, years. About 2 weeks ago she underwent endoscopy by Dr. Barrett where inflammatory changes were observed. Patient has persistent pain since then. Occasional diaphoresis reported. Nausea reported as well. No vomiting. Protonix and Carafate has conferred some benefit. PFSH Past Medical History Hx Anticoagulant Therapy: Yes (ASPIRIN 81MG) Asthma: No Autoimmune Disease: Yes (RHEUMATOID ARTHRITIS) Blood Disorders: No Heart Rhythm Problems: No Cancer: No Cardiac Catheterization: No Cardiovascular Problems: Yes (2 STENTS) High Cholesterol: No Chest Pain: No Congestive Heart Failure: No COPD: No Diabetes: No Diminished Hearing: No Diverticulitis: Yes Endocrine: No Gastrointestinal Disorders: Yes (DIVERTICULITIS) GERD: No Genitourinary: No Hepatitis: No Hiatal Hernia: Yes Heparin Induced Thrombocytopen: No Hypertension: Yes Immune Disorder: No Implanted Vascular Access Dvce: No Medical other: No Musculoskeletal: No Neurologic: No Psychiatric: No Reproductive: No Respiratory: Yes (RIGHT LOWER LOBE LOBECTOMY ) Sleep Apnea: No Thyroid Disease: No Ulcer: No Tetanus Vaccination: < 5 Years Influenza Vaccination: No ?: Not Menopausal: Yes Past Surgical History Abdominal Surgery: Yes (appy) AICD: No Appendectomy: Yes Body Medical Devices: TEETH IMPLANTS Cardiac Surgery: Yes (2 cardiac stents) Coronary Artery Bypass Graft: No Ear Surgery: Yes Endocrine Surgery: No Eye Surgery: No Genitourinary Surgery: No Gynecologic Surgery: Yes (hysterectomy 1970) Hysterectomy: Yes Joint Replacement: No Neurologic Surgery: No Oral Surgery: No Pacemaker: No Thoracic Surgery: Yes (R LOWER LOBE LUNG REMOVED) Other Surgery: Yes (BILATERAL BREAST BX) Family History Family Myocardial Infarction: Yes Social History Alcohol Use: Yes (rarely) Tobacco Use: No (quit 42 yrs ago) Substance Use: No Allergies-Medications (Allergen,Severity, Reaction): Coded Allergies: Sulfa (Sulfonamide Antibiotics) (Unverified Allergy, Severe, Anaphylaxis, 04/14/17) amoxicillin (Unverified Allergy, Mild, nausea, 04/14/17) codeine (Unverified Allergy, Mild, constipation, 04/14/17) Reported Meds & Prescriptions Reported Meds & Active Scripts Active Percocet (Oxycodone-Acetaminophen) 7.5-325 mg Tab 1 Tab PO Q6H PRN Reported Lidocaine Patch 12 HR (Lidocaine) 5 % Patch 1 Patch TOPICAL DAILY Remove patch after 12 hours Pravastatin 20 Mg Tab 20 Mg PO HS [place] (Hydrocodone-Acetaminophen) 5-325 mg Tab 1 Tab PO BID PRN Carafate (Sucralfate) 1 Gram Tab 1 Gm PO TIDAC On empty stomach Pantoprazole (Pantoprazole Sodium) 40 Mg Tab 40 Mg PO DAILY Isosorbide Mononitrate ER (Isosorbide Mononitrate) 30 Mg Heavenly 30 Mg PO DAILY Finasteride (Finasteride (Alopecia)) 1 Mg Tab 1 Mg PO DAILY Aspirin 81 Mg Chew 81 Mg CHEW DAILY Amlodipine (Amlodipine Besylate) 5 Mg Tab 5 Mg PO DAILY Review of Systems Except as stated in HPI: all other systems reviewed are Neg General / Constitutional: No: Fever HENT: No: Headaches Physical Exam Narrative GENERAL: Well-nourished well-developed 81-year-old female mild to moderate distress secondary to pain SKIN: Warm and dry. HEAD: Atraumatic. Normocephalic. EYES: Pupils equal and round. No scleral icterus. No injection or drainage. ENT: No nasal bleeding or discharge. Mucous membranes pink and moist. NECK: Trachea midline. No JVD. CARDIOVASCULAR: Regular rate and rhythm. RESPIRATORY: No accessory muscle use. Clear to auscultation. Breath sounds equal bilaterally. GASTROINTESTINAL: Soft. Diffuse tenderness present. MUSCULOSKELETAL: Extremities without clubbing, cyanosis, or edema. No obvious deformities. NEUROLOGICAL: Awake and alert. No obvious cranial nerve deficits. Motor grossly within normal limits. Five out of 5 muscle strength in the arms and legs. Normal speech. PSYCHIATRIC: Appropriate mood and affect; insight and judgment normal. Data Data Last Documented VS Vital Signs Date Time Temp Pulse Resp B/P (MAP) Pulse Ox O2 Delivery O2 Flow Rate FiO2 04/14/17 13:34 80 125/60 (81) 93 04/14/17 10:22 18 Room Air 04/14/17 09:59 97.4 vital signs reviewed Orders Orders Complete Blood Count With Diff (04/14/17 10:34) Comprehensive Metabolic Panel (04/14/17 10:34) Lipase (04/14/17 10:34) Lactic Acid (04/14/17 10:34) Iv Access Insert/Monitor (04/14/17 10:34) Ecg Monitoring (04/14/17 10:34) Oximetry (04/14/17 10:34) Ondansetron Inj (Zofran Inj) (04/14/17 10:45) Sodium Chlor 0.9% 1000 Ml Inj (Ns 1000 M (04/14/17 10:34) Sodium Chloride 0.9% Flush (Ns Flush) (04/14/17 10:45) Hydromorphone Pf Inj (Dilaudid Pf Inj) (04/14/17 11:00) Al-Mag Hy-Si 40-40-4 Mg/Ml Liq (Mag-Al P (04/14/17 11:00) Lidocaine 2% Viscous (Xylocaine 2% Visco (04/14/17 11:00) Hydromorphone Pf Inj (Dilaudid Pf Inj) (04/14/17 11:30) Prednisone (Deltasone) (04/14/17 12:15) Methylprednisolone So Succ Inj (Solumedr (04/14/17 12:15) Ct Abd/Pel W Iv Contrast(Rout) (04/14/17 12:15) Ondansetron Inj (Zofran Inj) (04/14/17 12:15) Urinalysis - C+S If Indicated (04/14/17 12:15) Hydromorphone Pf Inj (Dilaudid Pf Inj) (04/14/17 13:00) Iohexol 350 Inj (Omnipaque 350 Inj) (04/14/17 13:07) Ed Discharge Order (04/14/17 14:10) Labs Laboratory Tests Test 04/14/17 10:50 04/14/17 13:31 White Blood Count 7.7 TH/MM3 Red Blood Count 4.09 MIL/MM3 Hemoglobin 13.0 GM/DL Hematocrit 36.6 % Mean Corpuscular Volume 89.4 FL Mean Corpuscular Hemoglobin 31.8 PG Mean Corpuscular Hemoglobin Concent 35.6 % Red Cell Distribution Width 13.8 % Platelet Count 465 TH/MM3 Mean Platelet Volume 7.5 FL Neutrophils (%) (Auto) 78.7 % Lymphocytes (%) (Auto) 13.6 % Monocytes (%) (Auto) 6.7 % Eosinophils (%) (Auto) 0.8 % Basophils (%) (Auto) 0.2 % Neutrophils # (Auto) 6.1 TH/MM3 Lymphocytes # (Auto) 1.1 TH/MM3 Monocytes # (Auto) 0.5 TH/MM3 Eosinophils # (Auto) 0.1 TH/MM3 Basophils # (Auto) 0.0 TH/MM3 CBC Comment DIFF FINAL Differential Comment Blood Urea Nitrogen 17 MG/DL Creatinine 1.07 MG/DL Random Glucose 83 MG/DL Total Protein 7.7 GM/DL Albumin 3.6 GM/DL Calcium Level 9.4 MG/DL Alkaline Phosphatase 79 U/L Aspartate Amino Transf (AST/SGOT) 20 U/L Alanine Aminotransferase (ALT/SGPT) 21 U/L Total Bilirubin 0.3 MG/DL Sodium Level 139 MEQ/L Potassium Level 3.7 MEQ/L Chloride Level 102 MEQ/L Carbon Dioxide Level 30.0 MEQ/L Anion Gap 7 MEQ/L Estimat Glomerular Filtration Rate 49 ML/MIN Lactic Acid Level 1.9 mmol/L Lipase 88 U/L Urine Color YELLOW Urine Turbidity CLEAR Urine pH 7.5 Urine Specific [place] 1.034 Urine Protein NEG mg/dL Urine Glucose (UA) NEG mg/dL Urine Ketones NEG mg/dL Urine Occult Blood NEG Urine Nitrite NEG Urine Bilirubin NEG Urine Urobilinogen LESS THAN 2.0 MG/DL Urine Leukocyte Esterase NEG Urine RBC LESS THAN 1 /hpf Urine WBC 2 /hpf Urine Hyaline Casts 6 /lpf Microscopic Urinalysis Comment CULT NOT INDICATED MDM Medical Decision Making Medical Screen Exam Complete: Yes Emergency Medical Condition: Yes Medical Record Reviewed: Yes Differential Diagnosis Constipation, Gastritis, Acute Cholecystitis, Biliary Colic, Pancreatitis, BLANCO , Hepatitis, Bowel Obstruction, Cystitis, Mesenteric Ischemia, AAA, Appendicitis , Renal Stone/Hydronephrosis, GERD, perforated viscous Narrative Course CBC & BMP Diagram 04/14/17 10:50 Total Protein 7.7, Albumin 3.6, Calcium Level 9.4, Alkaline Phosphatase 79, Aspartate Amino Transf (AST/SGOT) 20, Alanine Aminotransferase (ALT/SGPT) 21, Total Bilirubin 0.3 Lipase 88 Lactic acid 1.9 Urinalysis shows no UTI Last 24 hours Impressions Abdomen/Pelvis CT 04/14/17 1215 Signed Impressions: Service Date/Time: Friday, April 14, 2017 13:02 - CONCLUSION: 1. No acute abnormality to explain the patient's pain. 2. 11 mm nodule in the left lower lobe is unchanged dating back to 2015. This likely is benign. 3. 5 mm nonobstructing left renal stone. 4. Colonic diverticulosis without acute inflammation. 5. Tiny right effusion. Wang Scott Jr., MD Long discussion ensued at the conclusion of workup. Follow-up discussed in some detail. The patient is resting comfortably and feels better, is alert and in no distress. The patients results and examination findings were discussed. The repeat examination is unremarkable and benign. The history, exam, diagnostic testing, and current condition do not suggest any significant pathology to warrant further testing, continued ED treatment, admission, or surgical evaluation at this point. The vital signs have been stable. The patient does not have uncontrollable pain, intractable vomiting, or other significant symptoms. The patient's condition is stable and appropriate for discharge. The patient will pursue further outpatient evaluation with a primary care physician or other designated or consulting physician as indicated in the discharge instructions. The patient expressed understanding and was agreeable with this plan. Diagnosis Primary Impression: Acute abdominal pain Additional Impression: Intra-abdominal adhesions Referrals: Jarad James MD call for appointment Karlos Parham MD call for appointment Additional Instructions: You have a choice when it comes to health care, and we are glad that you chose [facility]. Hopefully, we have met your expectations on today's visit. You are welcome to return to [facility] at any time, as we are committed to meeting the health care needs of our community. Med/Other Pt SpecificInfo: Prescription(s) given Scripts Oxycodone-Acetaminophen (Percocet) 7.5-325 mg Tab 1 TAB PO Q6H Y for PAIN SCALE 6 TO 10, #15 TAB 0 Refills Prov: Eh Villalta MD 04/14/17 Disposition: 01 DISCHARGE HOME Condition: Stable Eh Villalta MD Apr 14, 2017 14:09
== END 2017-04-14 15:03 | disposition home or self-care (01) ==
LOC: NEPC 09:56
DX: R10.13 Epigastric pain (principal); R10.11 Right upper quadrant pain; K66.0 Peritoneal adhesions (postprocedural) (postinfection); M54.9 Dorsalgia, unspecified; R61 Generalized hyperhidrosis; R11.0 Nausea; I10 Essential (primary) hypertension; Z79.82 Long term (current) use of aspirin; Z86.2 Personal history of diseases of the blood and blood-forming organs and certain disorders involving the immune mechanism; Z87.39 Personal history of other diseases of the musculoskeletal system and connective tissue; Z86.79 Personal history of other diseases of the circulatory system; Z87.19 Personal history of other diseases of the digestive system; Z87.09 Personal history of other diseases of the respiratory system
CPT/HCPCS: 74177; 80053; 81001; 83605; 83690; 85025; 96361; 96374; 96375; 96376; 99285; J1170; J2405; J2930; J7030; J7512; Q9967

== ENCOUNTER 2017-04-17 11:42 | Inpatient (IN) | payer MEDICARE, BC ==
[~2017-04-17 11:42] MED LIST changes: +PERC7.5T13 PO
[2017-04-17] MEDS: SODIUM CHLOR 0.9% 1000 ML INJ 1,000 ML IV SCH ×2 (12:34→22:17)
[2017-04-17] MEDS: MORPHINE SULFATE 4 MG/ML INJ IV PRN ×2 (12:34→15:25)
[2017-04-17] MEDS: PANTOPRAZOLE SODIUM 40 MG VIAL IV PUSH SCH (12:46)
[2017-04-17 12:49] VITALS: BP 154/85; PULSE 87; RESP 24; TEMP 98.1; O2SAT 96
[2017-04-17 13:27] LABS: BACTERIA, URINE RARE /hpf; BILIRUBIN, URINE NEG (NEG); BLOOD, URINE NEG (NEG); GLUCOSE,URINE NEG (NEG); KETONE, URINE NEG (NEG); NITRITE,URINE NEG (NEG); URINE COLOR LIGHT-YELLOW (YELLW/STRAW); URINE LEUKOCYTE ESTERASE NEG (NEG)
[2017-04-17] MEDS: oxyCODONE/ACETAMINOPHEN 5 MG/325 MG TAB PO PRN ×3 (14:09→22:00)
[2017-04-17 16:34] VITALS: BP 141/73; PULSE 77; RESP 18; TEMP 96.2; O2SAT 95
[2017-04-17 20:19] VITALS: BP 144/69; PULSE 61; RESP 18; TEMP 97.5; O2SAT 95
[2017-04-17 20:46] LABS: AUTOMATED NEUTROPHIL # 5.5 TH/MM3 (1.8-7.7); BASOPHIL % 0.3 % (0.0-2.0); EOSINOPHIL % 0.1 % (0.0-4.0); HEMATOCRIT 36.5 % (35.0-46.0); HEMOGLOBIN 12.1 GM/DL (11.6-15.3); LYMPH % 10.5 % (9.0-44.0); LYMPHOCYTE # 0.7 TH/MM3 (1.0-4.8); MEAN CELL VOLUME 89.9 FL (80.0-100.0); MEAN CORPUSCULAR HEMOGLOBIN 29.9 PG (27.0-34.0); MEAN CORPUSCULAR HGB CONC 33.2 % (32.0-36.0); MEAN PLATELET VOLUME 6.9 FL (7.0-11.0); MONO % 5.4 % (0.0-8.0); MONOCYTE # 0.4 TH/MM3 (0-0.9); NEUT % 83.7 % (16.0-70.0); PLATELET COUNT 345 TH/MM3 (150-450); RED BLOOD COUNT 4.05 MIL/MM3 (4.00-5.30); RED CELL DISTRIBUTION WIDTH 13.8 % (11.6-17.2); WHITE BLOOD COUNT 6.6 TH/MM3 (4.0-11.0)
[2017-04-17] MEDS ORDERED: IOHEXOL 350 MG/ML 10 ML VIAL (for RAD DIAG) IVCONTRAST ONE (20:50)
[2017-04-17 21:10] VITALS: BP 163/71; PULSE 60; RESP 18; TEMP 97.9; O2SAT 95
[2017-04-17 21:10] LABS: ALBUMIN 3.2 GM/DL (3.4-5.0); AST (GOT) 11 U/L (15-37); BICARBONATE 26.8 MEQ/L (21.0-32.0); BLOOD UREA NITROGEN 12 MG/DL (7-18); CHLORIDE 104 MEQ/L (98-107); CREATININE 0.74 MG/DL (0.50-1.00); GLOMERULAR FILTRATION RATE 76 ML/MIN (>89); GLUCOSE,RANDOM 109 MG/DL (74-106); SODIUM (NA) 139 MEQ/L (136-145)
[2017-04-17 21:11] LABS: ALT (GPT) 20 U/L (10-53)
[2017-04-17 21:13] LABS: ALKALINE PHOSPHATASE 66 U/L (45-117); TOTAL BILIRUBIN ADULT 0.2 MG/DL (0.2-1.0); TOTAL PROTEIN 6.5 GM/DL (6.4-8.2)
--- NOTE | 2017-04-17 23:02 | RADRPT ---
EXAM DATE/TIME: 04/17/2017 20:31 [facility] COMPARISON: No previous studies available for comparison. INDICATIONS : Patient complains of abdominal pain. IV CONTRAST: 98 cc Omnipaque 350 (iohexol) IV ORAL CONTRAST: No oral contrast ingested. RADIATION DOSE: 7.12 CTDIvol (mGy) MEDICAL HISTORY : Hypertension. Cardiovascular disease Diverticulitis. SURGICAL HISTORY : Appendectomy. Hysterectomy. ENCOUNTER: Initial ACUITY: 1 day PAIN SCALE: 5/10 LOCATION: abdomen TECHNIQUE: Volumetric scanning was performed using a multi-row detector CT scanner. The data was post processed with a variety of visualization algorithms including full volume maximum intensity projection, multi -planar sliding thin slab reformation, curved planar reformation, and surface rendering techniques. Using automated exposure control and adjustment of the mA and/or kV according to patient size, radiat ion dose was kept as low as reasonably achievable to obtain optimal diagnostic quality images. DICOM format image data is available electronically for review and comparison. FINDINGS: The abdominal aorta is notable for patchy intimal calcification and mild atheromatous irregularity. N o significant stenosis. No aneurysm. The iliacs are widely patent with mild occasional disease. Hypog astrics are patent bilaterally. The common femoral arteries are healthy in appearance. The visualized proximal thigh vessels are intact. Looking at the aortic visceral vessels, the celiac and SMA are widely patent. The LULI is patent. A wi arlette patent single right renal artery is noted. There is high grade ostial stenosis involving the lef t renal artery. Elsewhere on the exam, note is made of bilateral parapelvic and renal cortical cysts. There is no sig nificant left renal atrophy at present. A small nonobstructing stone is present in the lower pole col lecting system of the left kidney. There is mild nonspecific gallbladder distention. A duodenal diver ticulum is present. Distal colonic diverticula noted. No definite inflammatory changes. CONCLUSION: No evidence of mesenteric arterial compromise. High-grade ostial left renal artery stenosis should likely be addressed with stent placement even in the absence of hypertension or renal insufficiency as this lesion is otherwise felt almost surely to progress to occlusion if left untreated. Jamar Garland MD on April 17, 2017 at 22:55 Board Certified Radiologist. This report was verified electronically.
[2017-04-18] VITALS: BP 179/81; PULSE 68; RESP 18; TEMP 97.5; O2SAT 95
[2017-04-18 06:19] VITALS: BP 178/83; PULSE 70; RESP 18; TEMP 98.2; O2SAT 94
[2017-04-18 08:00] VITALS: BP 167/80; PULSE 76; RESP 18; TEMP 98; O2SAT 96
[2017-04-18] MEDS: PANTOPRAZOLE SODIUM 40 MG VIAL IV PUSH SCH (08:56)
[2017-04-18] MEDS: oxyCODONE/ACETAMINOPHEN 5 MG/325 MG TAB PO PRN ×4 (08:56→23:16)
[2017-04-18] MEDS: SODIUM CHLOR 0.9% 1000 ML INJ 1,000 ML IV SCH (09:06)
[2017-04-18 11:33] VITALS: BP 168/70; PULSE 68; RESP 18; TEMP 97.4; O2SAT 96
[2017-04-18] MEDS: amLODIPine BESYLATE 5 MG TAB PO SCH (13:43)
[2017-04-18] MEDS ORDERED: ISOSORBIDE MONONITRATE 30 MG TAB PO ONE (14:15)
[2017-04-18 16:00] VITALS: BP 165/78; PULSE 75; RESP 18; TEMP 97.7; O2SAT 93
--- NOTE | 2017-04-18 16:54 | PD.CONS ---
HPI History of Present Illness This is a 81 year old female patient with complaints of one month history of abdominal pain. She has been taking pain medication for this as well as other symptoms that are attributable to sjogrens syndrome including costochondritis. She also has had injections performed under anesthesia for her pain. She does not move her bowels well but had a colonoscopy a year ago with Dr Parham and it was unremarkable. She does not report any vomiting. No hematemesis or melena. She had CTA performed today and it was negative for everything except for critical renal artery stenosis. ROS: dry mouth, anxiety, no dysuria, no fever, no chills, no chest pain. No shortness of breath. Otherwise ROS is negative. PFSH Past Medical History Sjogrens syndrome Past Surgical History Colonoscopy in past but no EGD Coded Allergies: Sulfa (Sulfonamide Antibiotics) (Unverified Allergy, Severe, Anaphylaxis, 04/14/17) amoxicillin (Unverified Allergy, Mild, nausea, 04/14/17) codeine (Unverified Allergy, Mild, constipation, 04/14/17) Medications Current Medications Medications (Trade) Dose Ordered Sig/Akin Route Start Time Stop Time Status Last Admin (Protonix Inj) 40 mg DAILY IV PUSH 04/17/17 12:30 04/18/17 08:56 (Percocet 5-325 Mg) 2 tab Q4H PRN PO 04/17/17 12:30 04/18/17 14:21 (Morphine Inj) 4 mg Q3H PRN IV 04/17/17 12:30 04/17/17 15:25 Sodium Chloride 1,000 ml @ 80 mls/hr [id number] IV 04/17/17 12:30 04/18/17 09:06 (Norvasc) 5 mg DAILY PO 04/18/17 13:00 04/18/17 13:43 (Imdur) 30 mg DAILY PO 04/19/17 09:00 Family History Non contributory Social History No drink, no smoke. GI Exam Vitals I&O Vital Signs Date Time Temp Pulse Resp B/P (MAP) Pulse Ox O2 Delivery O2 Flow Rate FiO2 04/18/17 11:33 97.4 68 18 168/70 (102) 96 04/18/17 08:00 98.0 76 18 167/80 (109) 96 04/18/17 06:19 98.2 70 18 178/83 (114) 94 04/18/17 04:03 Room Air 04/18/17 00:00 97.5 68 18 179/81 (113) 95 04/18/17 00:00 Room Air 04/17/17 21:10 97.9 60 18 163/71 (101) 95 04/17/17 20:19 97.5 61 18 144/69 (94) 95 I/O 04/17/17 04/17/17 04/17/17 04/18/17 04/18/17 04/18/17 07:00 15:00 23:00 07:00 15:00 23:00 Intake Total 250 ml 1750 ml 865 ml 1000 ml Output Total 200 ml 800 ml Balance 50 ml 950 ml 865 ml 1000 ml Intake Oral 250 ml 500 ml 240 ml IV Total 1250 ml 625 ml 1000 ml Output Urine Total 200 ml 800 ml # Voids 3 Laboratory Test 04/17/17 20:06 White Blood Count 6.6 TH/MM3 Red Blood Count 4.05 MIL/MM3 Hemoglobin 12.1 GM/DL Hematocrit 36.5 % Mean Corpuscular Volume 89.9 FL Mean Corpuscular Hemoglobin 29.9 PG Mean Corpuscular Hemoglobin Concent 33.2 % Red Cell Distribution Width 13.8 % Platelet Count 345 TH/MM3 Mean Platelet Volume 6.9 FL Neutrophils (%) (Auto) 83.7 % Lymphocytes (%) (Auto) 10.5 % Monocytes (%) (Auto) 5.4 % Eosinophils (%) (Auto) 0.1 % Basophils (%) (Auto) 0.3 % Neutrophils # (Auto) 5.5 TH/MM3 Lymphocytes # (Auto) 0.7 TH/MM3 Monocytes # (Auto) 0.4 TH/MM3 Eosinophils # (Auto) 0.0 TH/MM3 Basophils # (Auto) 0.0 TH/MM3 CBC Comment DIFF FINAL Differential Comment Erythrocyte Sedimentation Rate 31 mm/hr Blood Urea Nitrogen 12 MG/DL Creatinine 0.74 MG/DL Random Glucose 109 MG/DL Total Protein 6.5 GM/DL Albumin 3.2 GM/DL Calcium Level 9.0 MG/DL Alkaline Phosphatase 66 U/L Aspartate Amino Transf (AST/SGOT) 11 U/L Alanine Aminotransferase (ALT/SGPT) 20 U/L Total Bilirubin 0.2 MG/DL Sodium Level 139 MEQ/L Potassium Level 3.7 MEQ/L Chloride Level 104 MEQ/L Carbon Dioxide Level 26.8 MEQ/L Anion Gap 8 MEQ/L Estimat Glomerular Filtration Rate 76 ML/MIN Date/Time Source Procedure Growth Status 04/17/17 13:07 Urine Clean Catch Urine Culture - Preliminary NO GROWTH IN 24 HOURS. Resulted Physical Examination HEENT: Pupils round and reactive to light; normocephalic; atraumatic; no jaundice. Throat is clear. Mouth very dry. NECK: Neck is supple, no JVD, no lymphadenopathy. CHEST: Chest is clear to auscultation and percussion. CARDIAC: Regular rate and rhythm with no murmur gallop or rubs. ABDOMEN: Bowel sounds normal. Mild tenderness without guarding. EXTREMITIES: No clubbing, cyanosis, or edema. SKIN: Normal; no rash; no jaundice. FRAUD PREVENTION ANALYST: No focal deficits; alert and oriented times three. Assessment and Plan Plan Imp: Abdominal pain uncertain cause. Rule out constipation from opioids Rule out gallbladder disease. Sjogrens syndrome. Plan: Miralax. US abdomen PPI Further recommendations depending on results of above. Rosalino Suarez MD Apr 18, 2017 16:54
[2017-04-18] MEDS: HYDROCORTISONE SOD SUCCINATE 100 MG VIAL IV PUSH SCH (18:43)
[2017-04-18 20:00] VITALS: BP 131/77; PULSE 78; RESP 16; TEMP 97.5; O2SAT 92
[2017-04-18] MEDS: POLYETHYLENE GLYCOL 17 GM PKG PO SCH ×3 (20:10→23:52)
--- NOTE | 2017-04-18 22:57 | MH ---
cc: BRIAN VIEYRA MD, RICHARD C. MD DATE OF ADMISSION 04/17/2017 ADMISSION DIAGNOSIS 1. Progressive abdominal pain 2. History of Sjogren's syndrome 3. History of amyloidosis HISTORY OF PRESENT ILLNESS Ms. 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 The patient has had some constipation over the years, but for the last several months has been having increasing amounts of abdominal pain. The pain is mostly central but does radiate into the epigastric region and around toward the back. She notes increased abdominal swelling and bloating as well. She denies any nausea, vomiting. Bowel movements have been usual constipation but no significant melena or rectal bleeding. Denies any fevers. The patient had been evaluated rather extensively after several ER visits and outpatient CAT scans showing no obvious source for her abdominal pain. There is no evidence of obstruction. No adenopathy and no sign of inflammatory changes. No sign of ischemia has been present. Blood work has been rather unremarkable as well. The patient was seen recently by Dr. Alford and then presented to the emergency room earlier in the week for increasing abdominal pain. She called the undersigned the morning of admission with severe abdominal pain to the point of complete disability. She was therefore referred to the hospital for control of her pain and possible additional investigative workup. PAST MEDICAL HISTORY 1. History of Sjogren's syndrome 2. History of cardiac stents 3. History of diverticulosis. 4. Appendectomy 5. Tooth implants 6. Two cardiac stents 7. Hysterectomy in 1969. 8. Recent right lower lobe lobectomy 9. Bilateral breast biopsies. MEDICATIONS See admitting list. ALLERGIES See admitting list. SOCIAL HISTORY The patient denies tobacco use, no alcohol abuse. PHYSICAL EXAMINATION GENERAL: A very pleasant older female in no acute distress. HEENT: Remarkable for very dry, pink membranes, nonicteric sclerae. NECK: Supple without gross adenopathy. CHEST: Relatively clear, symmetrically expanding HEART: Regular rhythm. ABDOMEN: Full, not really tight but some tympany. Bowel sounds are normal. No rebound or guarding. No masses. There is tenderness to palpation, but no localization rather diffusely across the upper abdomen. RECTAL: Anal inspection revealed benign canal. Digital exam revealed good tone. No masses or tenderness and some minor stool in the vault. EXTREMITIES: No cyanosis or clubbing and minimal pedal edema. LABORATORY FINDINGS All reviewed. IMAGING STUDIES CT scan was also reviewed. IMPRESSION An 81 year old female with Sjogren's syndrome and recent pulmonary amyloidosis who presents with additional abdominal pain of unclear etiology. We will send the patient for a CTA to see if she is having ongoing ischemic problems in the mesenteric vasculature. We will also consult GI for a possible EGD and gastric biopsies to rule out amyloidosis of the upper intestinal tract. Initially, she will be treated with some IV fluids, H2 blockers and pain control. If additional workup is negative, we will have to arrange referral to pain management and continue pain control at home while we investigate other sources of her abdominal discomfort. Interestingly, she did get some relief with steroids in the past and she may warrant a trial of higher dose steroids to see if she gets any relief. MD SCAR Fraga/ /10:32 PM /10:40 PM
[2017-04-19] VITALS: BP 129/68; PULSE 67; RESP 16; TEMP 98; O2SAT 94
[2017-04-19] MEDS: SODIUM CHLOR 0.9% 1000 ML INJ 1,000 ML IV SCH ×2 (02:00→02:47)
[2017-04-19 04:00] VITALS: BP 151/70; PULSE 89; RESP 20; TEMP 97; O2SAT 94
[2017-04-19] MEDS: HYDROCORTISONE SOD SUCCINATE 100 MG VIAL IV PUSH SCH ×3 (05:13→22:07)
[2017-04-19] MEDS: oxyCODONE/ACETAMINOPHEN 5 MG/325 MG TAB PO PRN ×5 (06:21→23:45)
[2017-04-19 08:08] VITALS: BP 156/78; PULSE 81; RESP 18; TEMP 98; O2SAT 93
--- NOTE | 2017-04-19 08:14 | RADRPT ---
EXAM DATE/TIME: 04/19/2017 07:15 [facility] COMPARISON: No previous studies available for comparison. INDICATIONS : Right upper quadrant pain. MEDICAL HISTORY : Hypercholesterolemia. Hypertension. Hernia, hiatal. Diverticulitis. Fibromyalgia. SURGICAL HISTORY : Appendectomy. Hysterectomy. Right lower lung lobectomy. Cardiac stent placement. Right shoulder sc ope. Bilateral breast nodule removal. ENCOUNTER: Initial ACUITY: 1 month PAIN SCORE: 4/10 LOCATION: Right upper quadrant MEASUREMENTS: LIVER: 17.4 cm length COMMON DUCT: 8 mm RIGHT KIDNEY: <<10.7 x x 4.6 cm FINDINGS: The liver is enlarged and demonstrates fatty infiltration. No focal mass is noted. No biliary duct al dilatation is noted. There is hepatopetal flow within the portal vein. The common bile duct is t op normal in size for the patient's age and measures 9 mm. The gallbladder is distended but its wall is not significantly thickened. No pericholecystic fluid or sonographic Sauceda's sign is noted. No cholelithiasis is noted. The head and body of the pancreas are unremarkable. The tail of the pancr eas is obscured by overlying bowel gas. There is a 6 mm nonobstructing stone within the lower pole o f the right kidney. There are multiple right renal cysts measuring 1.5 x 1.5 x 1.9 cm and 0.8 x 0.7 x 0.7 cm in the lower pole and 0.8 x 0.7 x 0.5 cm in the upper pole. No hydronephrosis is noted. CONCLUSION: 1. Enlarged fatty liver. 2. Distended gallbladder without wall thickening, pericholecystic fluid or sonographic Sauceda's sign. 3. 6 mm nonobstructing lower pole right renal calculus. 4. Multiple right renal cysts. Terell Cramer MD on April 19, 2017 at 7:55 Board Certified Radiologist. This report was verified electronically.
[2017-04-19] MEDS: ISOSORBIDE MONONITRATE 30 MG TAB PO SCH (10:07)
[2017-04-19] MEDS: amLODIPine BESYLATE 5 MG TAB PO SCH (10:07)
[2017-04-19] MEDS: PANTOPRAZOLE SODIUM 40 MG VIAL IV PUSH SCH (10:08)
[2017-04-19 12:08] VITALS: BP 160/77; PULSE 81; RESP 18; TEMP 98.4; O2SAT 93
--- NOTE | 2017-04-19 12:15 | HHI.PR ---
Subjective Remarks Abdominal pain, uncertain etiology slight improvement, still requiring pain pills q4h Objective Vital Signs Date Time Temp Pulse Resp B/P (MAP) Pulse Ox O2 Delivery O2 Flow Rate FiO2 04/19/17 08:08 98.0 81 18 156/78 (104) 93 04/19/17 04:06 Room Air 04/19/17 04:00 97.0 89 20 151/70 (97) 94 04/19/17 00:00 Room Air 04/19/17 00:00 98.0 67 16 129/68 (88) 94 04/18/17 20:00 97.5 78 16 131/77 (95) 92 04/18/17 20:00 Room Air 04/18/17 16:00 97.7 75 18 165/78 (107) 93 I/O 04/18/17 04/18/17 04/18/17 04/19/17 04/19/17 04/19/17 07:00 15:00 23:00 07:00 15:00 23:00 Intake Total 865 ml 1000 ml 960 ml 1975 ml Output Total 1100 ml 600 ml Balance 865 ml 1000 ml -140 ml 1375 ml Intake Oral 240 ml 960 ml 720 ml IV Total 625 ml 1000 ml 1255 ml Output Urine Total 1100 ml 600 ml # Voids 3 # Bowel Movements 0 0 Result Diagram: 04/17/17200504/17/172005 Objective Remarks Abdomen soft, nontender, mild distension Assessment and Plan Assessment and Plan Continue steroids Sharmaine Brown MD Apr 19, 2017 12:15
--- NOTE | 2017-04-19 12:17 | HHI.GIFU ---
Subjective Remarks Pt feels about the same. pain improved after taking oxycodone pills. She has not moved bowels after six doses of miralax yesterday. Pain is no worse and no vomiting. She ate regular food for dinner and breakfast this morning. We will try to do EGD tomorrow. US of gallbladder is negative for stones. There is some distension of the GB but probably normal. Will plan to do HIDA Friday. 8 doses of miralax today Clear liquid diet. Objective Vitals I&O Vital Signs Date Time Temp Pulse Resp B/P (MAP) Pulse Ox O2 Delivery O2 Flow Rate FiO2 04/19/17 08:08 98.0 81 18 156/78 (104) 93 04/19/17 04:06 Room Air 04/19/17 04:00 97.0 89 20 151/70 (97) 94 04/19/17 00:00 Room Air 04/19/17 00:00 98.0 67 16 129/68 (88) 94 04/18/17 20:00 97.5 78 16 131/77 (95) 92 04/18/17 20:00 Room Air 04/18/17 16:00 97.7 75 18 165/78 (107) 93 I/O 04/18/17 04/18/17 04/18/17 04/19/17 04/19/17 04/19/17 07:00 15:00 23:00 07:00 15:00 23:00 Intake Total 865 ml 1000 ml 960 ml 1975 ml Output Total 1100 ml 600 ml Balance 865 ml 1000 ml -140 ml 1375 ml Intake Oral 240 ml 960 ml 720 ml IV Total 625 ml 1000 ml 1255 ml Output Urine Total 1100 ml 600 ml # Voids 3 # Bowel Movements 0 0 Laboratory Date/Time Source Procedure Growth Status 04/17/17 13:07 Urine Clean Catch Urine Culture - Final 10-50,000 CFU/ML MIXED GRAM POSITIVE ... Complete Physical Exam HEENT: Pupils round and reactive to light; normocephalic; atraumatic; no jaundice. Throat is clear. NECK: Neck is supple, no JVD, no lymphadenopathy. CHEST: Chest is clear to auscultation and percussion. CARDIAC: Regular rate and rhythm with no murmur gallop or rubs. ABDOMEN: Soft, nondistended, nontender; no hepatosplenomegaly; bowel sounds are present in all four quadrants. EXTREMITIES: No clubbing, cyanosis, or edema. SKIN: Normal; no rash; no jaundice. INSPECTOR AIR CARRIER: No focal deficits; alert and oriented times three. Assessment and Plan Plan Imp: Abdominal pain uncertain cause. Rule out constipation from opioids Rule out gallbladder disease. Sjogrens syndrome. GB US is negative. Miralax x 6 did not produce any stools Plan: Miralax. x 8 today Clear liquid diet. PPI EGD with small bowel biopsies tomorrow. HIDA scan on Friday. Further recommendations after that. Rosalino Suarez MD Apr 19, 2017 12:17
[2017-04-19] MEDS: POLYETHYLENE GLYCOL 17 GM PKG PO SCH ×4 (12:37→15:02)
[2017-04-19 16:08] VITALS: BP 159/72; PULSE 76; RESP 18; TEMP 97.4; O2SAT 94
[2017-04-19 20:00] VITALS: BP 164/75; PULSE 79; RESP 20; TEMP 97.6; O2SAT 94
[2017-04-20] VITALS: BP 151/72; PULSE 76; RESP 20; TEMP 97.8; O2SAT 95
[2017-04-20] MEDS ORDERED: CHLORHEXIDINE GLUCONATE 2 % 1 PACK (2 CLOTHS) TOPICAL PRN (01:30)
[2017-04-20] MEDS ORDERED: POVIDONE IODINE 5% (ANTISEPSIS KIT) 4 APPLICATIONS EACH NARE PRN (01:30)
[2017-04-20] MEDS ORDERED: INSULIN HUMAN REGULAR 1,000 UNITS/10 ML VIAL SQ PRN (01:30)
[2017-04-20] MEDS ORDERED: SODIUM CHLORID 0.9% 500 ML IV PRN (01:30)
[2017-04-20] MEDS ORDERED: LACTATED RINGER'S 1000 ML IV PRN (01:30)
[2017-04-20 04:00] VITALS: BP 156/70; PULSE 86; RESP 20; TEMP 97.6; O2SAT 94
[2017-04-20] MEDS: oxyCODONE/ACETAMINOPHEN 5 MG/325 MG TAB PO PRN ×3 (05:07→20:19)
[2017-04-20] MEDS: HYDROCORTISONE SOD SUCCINATE 100 MG VIAL IV PUSH SCH ×3 (05:10→22:59)
[2017-04-20] MEDS: SODIUM CHLOR 0.9% 1000 ML INJ 1,000 ML IV SCH (06:18)
[2017-04-20 08:08] VITALS: BP 173/80; PULSE 77; RESP 19; TEMP 97.7; O2SAT 94
[2017-04-20] MEDS: MORPHINE SULFATE 4 MG/ML INJ IV PRN (09:58)
[2017-04-20] MEDS ORDERED: ePHEDrine/NS 25 MG/5 ML SYR IV ONE (12:00)
[2017-04-20] MEDS ORDERED: PROPOFOL 200 MG/20 ML AMP IV ONE (12:00)
[2017-04-20] MEDS ORDERED: PHENYLEPH/NS 1000 MCG/10 ML SYR IV ONE (12:00)
--- NOTE | 2017-04-20 12:32 | HHI.GIFU ---
Subjective Remarks Pt feels better after moving her bowels with miralax. Much less pain. EGD performed and biopsies obtained to rule out amyloid. Stomach contained residual food consistent with gastroparesis. Objective Vitals I&O Vital Signs Date Time Temp Pulse Resp B/P (MAP) Pulse Ox O2 Delivery O2 Flow Rate FiO2 04/20/17 08:08 97.7 77 19 173/80 (111) 94 04/20/17 04:00 97.6 86 20 156/70 (98) 94 04/20/17 00:00 97.8 76 20 151/72 (98) 95 04/19/17 20:00 97.6 79 20 164/75 (104) 94 04/19/17 19:30 Room Air 04/19/17 16:08 97.4 76 18 159/72 (101) 94 I/O 04/19/17 04/19/17 04/19/17 04/20/17 04/20/17 04/20/17 07:00 15:00 23:00 07:00 15:00 23:00 Intake Total 1975 ml 500 ml 1061 ml Output Total 600 ml Balance 1375 ml 500 ml 1061 ml Intake Oral 720 ml 0 ml 240 ml IV Total 1255 ml 500 ml 821 ml Output Urine Total 600 ml # Voids 4 6 # Bowel Movements 0 1 6 Laboratory Date/Time Source Procedure Growth Status 04/17/17 13:07 Urine Clean Catch Urine Culture - Final 10-50,000 CFU/ML MIXED GRAM POSITIVE ... Complete Physical Exam HEENT: Pupils round and reactive to light; normocephalic; atraumatic; no jaundice. Throat is clear. NECK: Neck is supple, no JVD, no lymphadenopathy. CHEST: Chest is clear to auscultation and percussion. CARDIAC: Regular rate and rhythm with no murmur gallop or rubs. ABDOMEN: Soft, nondistended, nontender; no hepatosplenomegaly; bowel sounds are present in all four quadrants. EXTREMITIES: No clubbing, cyanosis, or edema. SKIN: Normal; no rash; no jaundice. FORMULATION TECHNICIAN: No focal deficits; alert and oriented times three. Assessment and Plan Plan Imp: Abdominal pain uncertain cause. Improved after miralax Rule out constipation from opioids Rule out gallbladder disease. Sjogrens syndrome. GB US is negative. Plan: Miralax. one dose BID Full liquid diet. PPI HIDA scan on Friday. Further recommendations after that. Rosalino Suarez MD Apr 20, 2017 12:32
[2017-04-20] MEDS ORDERED: DO NOT ADM ANY ANTICOAGULANT DRUGS PRN (13:15)
[2017-04-20] MEDS: PANTOPRAZOLE SOD 40 MG DELAYED RELEASE TAB PO SCH (15:11)
[2017-04-20] MEDS: amLODIPine BESYLATE 5 MG TAB PO SCH (15:12)
[2017-04-20] MEDS: ISOSORBIDE MONONITRATE 30 MG TAB PO SCH (15:12)
[2017-04-20 16:08] VITALS: BP 155/71; PULSE 68; RESP 19; TEMP 97.6; O2SAT 96
[2017-04-20 20:00] VITALS: BP 152/73; PULSE 80; RESP 17; TEMP 97.9; O2SAT 95
[2017-04-20] MEDS: POLYETHYLENE GLYCOL 17 GM PKG PO SCH (20:19)
[2017-04-21] VITALS (7 sets, daily range): BP systolic 154–184; BP diastolic 74–88; PULSE 70–87; RESP 18–20; TEMP 97.2–98.3; O2SAT 94–98
[2017-04-21] MEDS: oxyCODONE/ACETAMINOPHEN 5 MG/325 MG TAB PO PRN ×4 (02:18→20:56)
[2017-04-21] MEDS: HYDROCORTISONE SOD SUCCINATE 100 MG VIAL IV PUSH SCH (06:10)
[2017-04-21] MEDS: SODIUM CHLOR 0.9% 1000 ML INJ 1,000 ML IV SCH (06:11)
[2017-04-21] MEDS: ISOSORBIDE MONONITRATE 30 MG TAB PO SCH (09:19)
[2017-04-21] MEDS: amLODIPine BESYLATE 5 MG TAB PO SCH (09:19)
[2017-04-21] MEDS: POLYETHYLENE GLYCOL 17 GM PKG PO SCH ×2 (09:19→20:53)
[2017-04-21] MEDS: PANTOPRAZOLE SOD 40 MG DELAYED RELEASE TAB PO SCH (09:19)
--- NOTE | 2017-04-21 14:02 | RADRPT ---
EXAM DATE/TIME: 04/21/2017 12:13 This report includes an Addendum and supersedes previous reports for this exam. [facility] COMPARISON: US ABDOMEN - GALLBLADDER, April 19, 2017, 7:15. INDICATIONS : Abdomen pain. DOSE: 4.3 mCi Tc99m Mebrofenin IV MEDICAL HISTORY : Cardiovascular disease. Sjogrens syndrome. SURGICAL HISTORY : Hysterectomy. Appendectomy. Lobectomy. ENCOUNTER: Initial ACUITY: 2 days PAIN SCALE: 2/10 LOCATION: Right upper quadrant TECHNIQUE: Following the intravenous administration of radiotracer, dynamic sequential images were performed wit h continuous acquisition. FINDINGS: HEPATIC KINETICS: There is prompt uptake of radiotracer in the liver. No focal defects are seen. There is normal rate of washout from the hepatic parenchyma. BILIARY CLEARANCE: Activity is first seen in the extrahepatic biliary system at 10 minutes. There is normal excretion i nto the small bowel. GALLBLADDER: The gallbladder is not visualized throughout the course of the examination. Common bile duct kinetics are normal and there is no evidence of biliary obstruction. BILIARY ENTRIC REFLUX: Biliary gastric reflux is present beginning at 26 minutes CONCLUSION: 1. Nonvisualization of the gallbladder characteristic of acute cholecystitis delayed imaging is to be performed 2. Biliary gastric reflux Jarad Cobian MD on April 21, 2017 at 13:53 Board Certified Radiologist. This report was verified electronically. ADDENDUM: There is visualization of the gallbladder at 4 hours. This can be seen with chronic cholecystitis. Darion Castro MD FACR on April 21, 2017 at 15:51 Board Certified Radiologist. This report was verified electronically.
[2017-04-21] MEDS: predniSONE 20 MG TAB PO SCH (14:32)
[2017-04-21] MEDS ORDERED: PRED20 PO (17:45)
[2017-04-21] MEDS ORDERED: CARA1TAB6 PO (17:45)
[2017-04-21] MEDS ORDERED: PERC7.5T13 PO (17:45)
--- NOTE | 2017-04-21 17:45 | HHI.GIFU ---
Subjective Remarks Pt sitting up in bed, daughter at bedside. Still with abd pain but better with pain meds. did tolerate full liquid dinner. No n/v. Objective Vitals I&O Vital Signs Date Time Temp Pulse Resp B/P (MAP) Pulse Ox O2 Delivery O2 Flow Rate FiO2 04/21/17 16:00 97.7 84 18 175/82 (113) 94 04/21/17 12:00 97.2 86 18 180/84 (116) 96 04/21/17 08:00 Room Air 04/21/17 08:00 98.1 70 18 180/88 (118) 96 04/21/17 06:09 164/78 (106) 04/21/17 04:00 97.3 80 18 166/79 (108) 95 04/21/17 00:00 97.3 81 18 154/74 (100) 94 04/20/17 20:00 97.9 80 17 152/73 (99) 95 04/20/17 19:45 Room Air I/O 04/20/17 04/20/17 04/20/17 04/21/17 04/21/17 04/21/17 07:00 15:00 23:00 07:00 15:00 23:00 Intake Total 1061 ml 750 ml 510 ml 1999 ml 240 ml Balance 1061 ml 750 ml 510 ml 1999 ml 240 ml Intake Oral 240 ml 360 ml 1200 ml 240 ml IV Total 821 ml 150 ml 799 ml Other 750 ml # Voids 6 4 4 3 # Bowel Movements 6 1 Laboratory Date/Time Source Procedure Growth Status 04/17/17 13:07 Urine Clean Catch Urine Culture - Final 10-50,000 CFU/ML MIXED GRAM POSITIVE ... Complete Imaging Last Impressions Hepatobiliary Scan Nuclear Medicine 04/21/17 0000 Signed Impressions: Service Date/Time: Friday, April 21, 2017 12:13 - CONCLUSION: 1. Nonvisualization of the gallbladder characteristic of acute cholecystitis delayed imaging is to be performed 2. Biliary gastric reflux Jarad Cobian MD ADDENDUM: There is visualization of the gallbladder at 4 hours. This can be seen with chronic cholecystitis. Darion Castro MD FACR Gall Bladder Ultrasound 04/19/17 0000 Signed Impressions: Service Date/Time: Wednesday, April 19, 2017 07:15 - CONCLUSION: 1. Enlarged fatty liver. 2. Distended gallbladder without wall thickening, pericholecystic fluid or sonographic Sauceda's sign. 3. 6 mm nonobstructing lower pole right renal calculus. 4. Multiple right renal cysts. Terell Cramer MD Abdomen/Pelvis CT 04/17/17 0000 Signed Impressions: Service Date/Time: March 20:31 - CONCLUSION: No evidence of mesenteric arterial compromise. High-grade ostial left renal artery stenosis should likely be addressed with stent placement even in the absence of hypertension or renal insufficiency as this lesion is otherwise felt almost surely to progress to occlusion if left untreated. Jamar Garland MD Physical Exam HEENT: PERRL; normocephalic; atraumatic; no jaundice. CHEST: CTA CARDIAC: RRR ABDOMEN: Soft, nondistended, RUQ TTP; bowel sounds are present in all four quadrants. EXTREMITIES: No clubbing, cyanosis, or edema. SKIN: Normal; no rash; no jaundice. ASSISTANT MANAGER TRAINEE: No focal deficits; alert and oriented times three. Assessment and Plan Plan ASSESSMENT - abd pain, bloating - unclear etiology. GI consulted for EGD to get bx r/o amyloidosis. EGD showed residual food c/w gastroparesis. HIDA chronic cholecystitis. pain somewhat improved after steroids, miralax, pain meds. d/w CRS. pt to be d/c tomorrow PLAN - await pathology - consider bowel regimen - okay to d/c from GI standpoint - f/u with GI as outpatient - f/u with CRS as directed This pt seen by myself and Dr Archibald and this note is written on her behalf Eli Díaz Apr 21, 2017 17:45
[2017-04-22] VITALS: BP 154/76; PULSE 75; RESP 20; TEMP 97.8; O2SAT 97
[2017-04-22 04:00] VITALS: BP 177/85; PULSE 77; RESP 20; TEMP 97.6; O2SAT 96
[2017-04-22] MEDS: SODIUM CHLOR 0.9% 1000 ML INJ 1,000 ML IV SCH (05:00)
[2017-04-22 08:00] VITALS: BP 152/70; PULSE 93; RESP 20; TEMP 97.8; O2SAT 94
[2017-04-22] MEDS: PANTOPRAZOLE SOD 40 MG DELAYED RELEASE TAB PO SCH (09:00)
[2017-04-22] MEDS: predniSONE 20 MG TAB PO SCH (09:00)
[2017-04-22] MEDS: POLYETHYLENE GLYCOL 17 GM PKG PO SCH (09:00)
[2017-04-22] MEDS: ISOSORBIDE MONONITRATE 30 MG TAB PO SCH (09:06)
[2017-04-22] MEDS: amLODIPine BESYLATE 5 MG TAB PO SCH (09:06)
== END 2017-04-22 09:17 | disposition home or self-care (01) | DRG 547 ==
LOC: NEPFCDU 11:59 → N04A 21:10
PROVIDERS: ADMIT Colon & Rectal Surgery; ATTEND Colon & Rectal Surgery
PROC: 0DB68ZX Excision of Stomach, Via Natural or Artificial Opening Endoscopic, Diagnostic (ICD-10-PCS; 2017-04-20)
PROC: 0DB98ZX Excision of Duodenum, Via Natural or Artificial Opening Endoscopic, Diagnostic (ICD-10-PCS; 2017-04-20)
PROC: 0DB58ZX Excision of Esophagus, Via Natural or Artificial Opening Endoscopic, Diagnostic (ICD-10-PCS; principal; 2017-04-20 12:15)
DX: E85.4 Organ-limited amyloidosis (principal); J99 Respiratory disorders in diseases classified elsewhere; K31.84 Gastroparesis; K81.1 Chronic cholecystitis; M35.00 Sjogren syndrome, unspecified; R10.9 Unspecified abdominal pain; K59.00 Constipation, unspecified; M94.0 Chondrocostal junction syndrome [Tietze]; Z95.5 Presence of coronary angioplasty implant and graft; Z88.5 Allergy status to narcotic agent; Z88.0 Allergy status to penicillin; Z88.2 Allergy status to sulfonamides; K66.0 Peritoneal adhesions (postprocedural) (postinfection); M54.9 Dorsalgia, unspecified; R61 Generalized hyperhidrosis
CPT/HCPCS: 74174; 74177; 76705; 76937; 78226; 80053; 81001; 82948; 83605; 83690; 85025; 85652; 87086; 88305; 88312; 88313; 96361; 96374; 96375; 96376; A9537; C9113; J1170; J1720; J2270; J2370; J2405; J2930; J7030; J7512; Q9967

== ENCOUNTER 2018-05-17 03:24 | Inpatient (IN) ==
--- NOTE | 2018-05-17 04:04 | ED ---
HPI General Chief Complaint: Abdominal Pain Stated Complaint: N/V Time Seen by Provider: 05/17/18 03:32 Source: patient Mode of arrival: EMS Limitations: no limitations History of Present Illness HPI narrative: 82 yo F arrives due to n/v and abdominal pain with pain in the lower back. duration approximately 1 day. nausea throughout the day reported. no fever reported. + diaphoresis throughout day. + diarrhea, black liquid stool , reported. no cp/sob. appetite decreased. severity moderate. pt reports hx gastritis/esophagitis. pt follows w dr bunch. pt notes black emesis just prior to arrival. Related Data Home Medications Medication Instructions Recorded Confirmed amlodipine 5 mg PO DAILY 03/17/18 05/17/18 aspirin [Aspirin Low Dose] 1 tab PO DAILY 03/17/18 05/17/18 finasteride 1 mg PO DAILY 03/17/18 05/17/18 isosorbide mononitrate 30 mg PO DAILY 03/17/18 05/17/18 pantoprazole 20 mg PO BID 03/18/18 05/17/18 hydrocodone-acetaminophen 1 tab PO Q4-6H PRN 05/17/18 05/17/18 lisinopril 10 mg PO DAILY 05/17/18 05/17/18 Allergies Allergy/AdvReac Type Severity Reaction Status Date / Time Sulfa (Sulfonamide Allergy Severe Anaphylaxis Verified 05/17/18 03:34 Antibiotics) amoxicillin Allergy Mild nausea Verified 05/17/18 03:34 codeine Allergy Mild constipatio Verified 05/17/18 03:34 n Review of Systems ROS: all other systems reviewed are negative [facility] Medical History Medical History 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) Surgical History Surgical History History of heart artery stent (Acute) Status post lobectomy of lung (Acute) Social History Social History Substance History: No History of Abuse Second Hand Smoke Exposure: No Smoking Status: Former smoker How Often Do You Have a Drink Containing Alcohol: Monthly or less Recent Travel in [facility] within the Last 8 Weeks: No Recent Out of Country Travel within the Last 8 Weeks: No Immunization History Tetanus Immunization: Unsure Exam Narrative Exam Narrative: GENERAL: 82 yo M, WNWD, pleasant mild distress 2/2 pain and/or nausea SKIN: Focused skin assessment warm/dry. HEAD: Atraumatic. Normocephalic. EYES: Pupils equal and round. No scleral icterus. No injection or drainage. ENT: No nasal bleeding or discharge. Mucous membranes pink and moist. NECK: Trachea midline. No JVD. CARDIOVASCULAR: Regular rate and rhythm. No murmur appreciated. RESPIRATORY: No accessory muscle use. Clear to auscultation. Breath sounds equal bilaterally. GASTROINTESTINAL: Soft. Non-specific generalized TTP. MUSCULOSKELETAL: No obvious deformities. No clubbing. No cyanosis. No edema. NEUROLOGICAL: Awake and alert. No obvious cranial nerve deficits. Motor grossly within normal limits. Normal speech. PSYCHIATRIC: Appropriate mood and affect; insight and judgment normal. Course Initial Documented Vital Signs Temperature 97.7 F 05/17/18 03:27 Pulse Rate 103 H 05/17/18 03:27 Respiratory Rate 20 05/17/18 03:27 Blood Pressure 146/63 H 05/17/18 03:27 Pulse Oximetry 96 05/17/18 03:27 Last Documented Vital Signs Temperature 97.7 F 05/17/18 03:27 Pulse Rate 97 H 05/17/18 05:08 Respiratory Rate 22 05/17/18 05:08 Blood Pressure 122/56 L 05/17/18 05:08 Pulse Oximetry 100 05/17/18 05:21 Critical Care Time Critical Care Time: Yes Total Critical Care Time: 35 Attestation: Aggregate critical care time was 35 minutes. Time to perform other separately billable procedures was not included in the critical care time. My time did not include minutes spent treating any other patients simultaneously or on activities that did not directly contribute to the patient's treatment. The services I provided to this patient were to treat and/or prevent clinically significant deterioration that could result in: intractable pain, multiorgan dysfunction, anemia I provided critical care services requiring my management, as noted below: Chart data review, documentation time, medication orders and management, vital sign assessments/reviewing monitor data, ordering and reviewing lab tests, ordering and interpreting/reviewing x-rays and diagnostic studies, care of the patient and discussion of the patient with the admitting physicians. Medical Decision Making MDM Narrative Medical decision making narrative: WBC 8.4 Hgb 8.8 Plt 25 per lab BUN 48 Cr 0.83 Glucose 164 Lactic acid 2.1 Tn < 0.[address] abd/pel no acute disease Upon return from CT pt had chest pain requiring IV narcotics for control. Stat EKG shows ST depressions in precordial leads. Tn 0.02 Pt has GI bleed. Protonix started. 1u PRBCs started. d/w Dr Stiles for [facility]. Repeat CBC ordered at time of admission to [facility]. Pain resolved as of 6:00AM, pt recieved 0.75mg iv hydromorphone. Medical Screen Exam Complete: Yes Emergency Medical Condition: Yes Differential Diagnosis Differential Diagnosis: Intracranial hemorrhage, skull fracture, contusion, fall constipation, Gastritis, Acute Cholecystitis, Biliary Colic, Pancreatitis, BLANCO, Hepatitis, Bowel Obstruction, Cystitis, Mesenteric Ischemia, AAA, Appendicitis, Renal Stone/Hydronephrosis, GERD, perforated viscous Lab Data Lab results reviewed: Yes I reviewed the patient's lab results. Result diagrams: 05/17/18 03:40 05/17/18 03:40 Lab Results 05/17/18 05/17/18 05/17/18 Range/Units 03:40 03:40 05:00 WBC 8.4 (4.0-11.0) th/mm3 RBC 2.80 L (4.00-5.30) mil/mm3 Hgb 8.8 L (11.6-15.3) gm/dL Hct 25.4 L (35.0-46.0) % MCV 90.8 (80.0-100.0) fL MCH 31.4 (27.0-34.0) pg MCHC 34.6 (32.0-36.0) % RDW 14.5 (11.6-17.2) % Plt Count (150-450) th/mm3 MPV 9.3 (7.0-11.0) fL Prelim Diff (Auto) Slide review pending Neut % (Auto) 76.4 H (16.0-70.0) % Lymph % (Auto) 18.1 (9.0-44.0) % [place] % (Auto) 4.3 (0.0-8.0) % Eos % (Auto) 0.6 (0.0-4.0) % Baso % (Auto) 0.6 (0.0-2.0) % Neut # (Auto) 6.4 (1.8-7.7) th/mm3 Lymph # (Auto) 1.5 (1.0-4.8) th/mm3 [place] # (Auto) 0.4 (0.0-0.9) th/mm3 Eos # (Auto) 0.0 (0.0-0.4) th/mm3 Baso # (Auto) 0.0 (0.0-0.2) th/mm3 WBC Differential . Diff Scan Auto diff confirmed Differential Comment . Platelet Estimate Low L (Normal) Platelet Morphology Normal (Normal) Tear Drop Cells 1+ H (None) Ovalocytes 1+ H (None) Sodium 143 (136-145) meq/L Potassium 4.0 (3.5-5.1) meq/L Chloride 110 H (98-107) meq/L Carbon Dioxide 24.5 (21.0-32.0) meq/L Anion Gap 9 (5-15) meq/L BUN 48 H (7-18) mg/dL Creatinine 0.83 (0.50-1.00) mg/dL Estimated GFR 66 L (>89) mL/min Random Glucose 164 H (74-106) mg/dL Lactic Acid 2.1 H (0.4-2.0) mmol/L Calcium 8.1 L (8.5-10.1) mg/dL Magnesium 1.7 (1.5-2.5) mg/dL Total Bilirubin 0.1 L (0.2-1.0) mg/dL AST 14 L (15-37) U/L ALT 21 (10-53) U/L Alkaline Phosphatase 57 (45-117) U/L Troponin I Less than 0.02 L (0.02-0.05) ng/mL Total Protein 5.8 L (6.4-8.2) g/dL Albumin 2.8 L (3.4-5.0) g/dL Lipase 79 (73-393) U/L Blood Type Blood Type Recheck Antibody Screen MTS Gel Crossmatch 05/17/18 Range/Units 05:00 WBC (4.0-11.0) th/mm3 RBC (4.00-5.30) mil/mm3 Hgb (11.6-15.3) gm/dL Hct (35.0-46.0) % MCV (80.0-100.0) fL MCH (27.0-34.0) pg MCHC (32.0-36.0) % RDW (11.6-17.2) % Plt Count (150-450) th/mm3 MPV (7.0-11.0) fL Prelim Diff (Auto) Neut % (Auto) (16.0-70.0) % Lymph % (Auto) (9.0-44.0) % [place] % (Auto) (0.0-8.0) % Eos % (Auto) (0.0-4.0) % Baso % (Auto) (0.0-2.0) % Neut # (Auto) (1.8-7.7) th/mm3 Lymph # (Auto) (1.0-4.8) th/mm3 [place] # (Auto) (0.0-0.9) th/mm3 Eos # (Auto) (0.0-0.4) th/mm3 Baso # (Auto) (0.0-0.2) th/mm3 WBC Differential Diff Scan Differential Comment Platelet Estimate (Normal) Platelet Morphology (Normal) Tear Drop Cells (None) Ovalocytes (None) Sodium (136-145) meq/L Potassium (3.5-5.1) meq/L Chloride (98-107) meq/L Carbon Dioxide (21.0-32.0) meq/L Anion Gap (5-15) meq/L BUN (7-18) mg/dL Creatinine (0.50-1.00) mg/dL Estimated GFR (>89) mL/min Random Glucose (74-106) mg/dL Lactic Acid (0.4-2.0) mmol/L Calcium (8.5-10.1) mg/dL Magnesium (1.5-2.5) mg/dL Total Bilirubin (0.2-1.0) mg/dL AST (15-37) U/L ALT (10-53) U/L Alkaline Phosphatase (45-117) U/L Troponin I (0.02-0.05) ng/mL Total Protein (6.4-8.2) g/dL Albumin (3.4-5.0) g/dL Lipase (73-393) U/L Blood Type O Positive Blood Type Recheck Required Antibody Screen Negative MTS Gel Crossmatch See Detail Imaging Data Radiologist's impression: Abdomen/Pelvis CT 05/17/18 00:00 CONCLUSION: 1. No acute findings within the abdomen and pelvis. 2. Nonacute findings include fatty liver. Nonobstructing left renal calculus, small renal cysts. Colonic diverticula. 3. Stable small nodules left lung base. Mild emphysema. Discharge Plan Discharge Disposition Patient Disposition: 30 Still Patient Physicians Team ED Provider: Eh Villalta Primary Care Provider: UNKNOWN, Rxs /Orders / Referrals /Forms Prescriptions: No Action isosorbide mononitrate 30 mg Tablet Extended Release 24 Hr 30 mg PO DAILY RF: 0 amlodipine 5 mg Tablet 5 mg PO DAILY RF: 0 aspirin [Aspirin Low Dose] 81 mg Tablet,Delayed Release (Dr/Ec) 1 tab PO DAILY RF: 0 finasteride 1 mg Tablet 1 mg PO DAILY RF: 0 pantoprazole 20 mg Tablet,Delayed Release (Dr/Ec) 20 mg PO BID RF: 0 hydrocodone-acetaminophen 5-325 mg Tablet 1 tab PO Q4-6H PRN (Reason: Acute Pain) RF: 0 lisinopril 10 mg Tablet 10 mg PO DAILY RF: 0 Discharge Interventions Interventions: Vital Signs Last Done: 05/17/18 05:08 Status ED Status: With Doctor
[2018-05-17 04:19] LABS: Baso % (Auto) 0.6 % (0.0-2.0); Eos % (Auto) 0.6 % (0.0-4.0); Hematocrit 25.4 % (35.0-46.0); Hemoglobin 8.8 gm/dL (11.6-15.3); Lymph # (Auto) 1.5 th/mm3 (1.0-4.8); Lymph % (Auto) 18.1 % (9.0-44.0); Mean Corpuscular HGB Conc 34.6 % (32.0-36.0); Mean Corpuscular Hemoglobin 31.4 pg (27.0-34.0); Mean Corpuscular Volume 90.8 fL (80.0-100.0); Mean Platelet Volume 9.3 fL (7.0-11.0); Mono # (Auto) 0.4 th/mm3 (0.0-0.9); Mono % (Auto) 4.3 % (0.0-8.0); Neut # (Auto) 6.4 th/mm3 (1.8-7.7); Neut % (Auto) 76.4 % (16.0-70.0); Red Cell Distribution Width 14.5 % (11.6-17.2); White Blood Count 8.4 th/mm3 (4.0-11.0)
[2018-05-17 04:25] LABS: Alanine Aminotransferase 21 U/L (10-53); Albumin 2.8 g/dL (3.4-5.0); Anion Gap 9 meq/L (5-15); Aspartate Aminotransferase 14 U/L (15-37); Blood Urea Nitrogen 48 mg/dL (7-18); Calcium 8.1 mg/dL (8.5-10.1); Carbon Dioxide 24.5 meq/L (21.0-32.0); Chloride 110 meq/L (98-107); Glomerular Filtration Rate 66 mL/min (>89); Glucose,Random 164 mg/dL (74-106); Lipase 79 U/L (73-393); Magnesium 1.7 mg/dL (1.5-2.5); Sodium 143 meq/L (136-145)
[2018-05-17 04:29] LABS: Alkaline Phosphatase 57 U/L (45-117); Total Protein 5.8 g/dL (6.4-8.2)
[2018-05-17] MEDS ORDERED: HYDROmorphone PF Inj 2 MG/ML Vial IV.PUSH ONE (04:54)
[2018-05-17 04:57] LABS: Platelet Morphology Normal (Normal)
[2018-05-17 04:58] LABS: Ovalocytes 1+; Tear Drop Cells 1+
[2018-05-17] MEDS: Sod Chloride 0.9% Inj 1,000 ML IV.SIG SCH ×2 (05:09→05:48)
--- NOTE | 2018-05-17 05:22 | CT ---
EXAM DATE: 05/17/2018 4:41 AM EST AGE/SEX: 82 years / Female INDICATIONS: Right upper quadrant pain; coffee ground emesis. CLINICAL DATA: This is the patient's initial encounter. Patient reports that signs and symptoms have been present for 2 days and indicates a pain score of 7/10. MEDICAL/SURGICAL HISTORY: . Right lower lobe lung mass Lobectomy. ORAL CONTRAST: No oral contrast ingested. RADIATION DOSE: 6.97 CTDI (mGy) COMPARISON: [facility] [place], [place] ABDOMEN & PELVIS W CONTRAST, 04/14/2017. . TECHNIQUE: Multiple contiguous axial images were obtained through the abdomen and pelvis following b olus infusion of 97 ml Omnipaque 350 (iohexol) nonionic water-soluble contrast as a single exam dos e. No oral contrast ingested. Using automated exposure control and adjustment of the mA and/or kV ac cording to patient size, radiation dose was kept as low as reasonably achievable to obtain optimal di agnostic quality images. DICOM format image data is available electronically for review and comparis on. FINDINGS: There are 2 small nodules in the left lung base, stable. No significant effusion. Mild emphysematous change. Diffuse fatty liver. Spleen, adrenals and pancreas unremarkable. Multiple small bilateral renal cysts . 5 mm nonobstructing left renal calculus. Large duodenal diverticulum. Colonic diverticulosis withou t diverticulitis. Mild constipation. No acute bony abnormality. Degenerative disc disease with mild s coliosis. CONCLUSION: 1. No acute findings within the abdomen and pelvis. 2. Nonacute findings include fatty liver. Nonobstructing left renal calculus, small renal cysts. Col onic diverticula. 3. Stable small nodules left lung base. Mild emphysema. Electronically signed by: Kapil Mcbride MD 05/17/2018 5:21 AM EST
[2018-05-17] MEDS ORDERED: Pantoprazole Inj 80 MG in Sodium Chlor 0.9% Inj 35 ML IV.SIG ONE (06:09)
[2018-05-17] MEDS ORDERED: Bisacodyl 10 MG Supp RECTAL PRN (06:10)
[2018-05-17 06:29] LABS: Baso % (Auto) 0.4 % (0.0-2.0); Eos % (Auto) 0.2 % (0.0-4.0); Hematocrit 22.5 % (35.0-46.0); Hemoglobin 7.6 gm/dL (11.6-15.3); Lymph # (Auto) 1.2 th/mm3 (1.0-4.8); Lymph % (Auto) 12.7 % (9.0-44.0); Mean Corpuscular HGB Conc 33.9 % (32.0-36.0); Mean Corpuscular Hemoglobin 31.1 pg (27.0-34.0); Mean Corpuscular Volume 91.6 fL (80.0-100.0); Mono # (Auto) 0.4 th/mm3 (0.0-0.9); Mono % (Auto) 4.3 % (0.0-8.0); Neut # (Auto) 7.7 th/mm3 (1.8-7.7); Neut % (Auto) 82.4 % (16.0-70.0); Red Blood Count 2.46 mil/mm3 (4.00-5.30); Red Cell Distribution Width 14.7 % (11.6-17.2); White Blood Count 9.3 th/mm3 (4.0-11.0)
[2018-05-17] MEDS: Sod Chloride 0.9% Inj 1,000 ML IV.CONT SCH ×3 (06:41→20:14)
[2018-05-17] MEDS ORDERED: Pantoprazole Inj 80 MG in Sodium Chlor 0.9% Inj 100 ML IV.CONT SCH (07:00)
[2018-05-17 07:24] LABS: Platelet Estimate Rare (Normal)
[2018-05-17] MEDS: Senna/Docusate Sodium 8.6/50 MG Tablet PO SCH ×2 (08:31→20:14)
[2018-05-17] MEDS: Pantoprazole Inj 80 MG in Sodium Chlor 0.9% Inj 100 ML IV.CONT SCH ×2 (08:32→19:20)
[2018-05-17 08:54] LABS: Bilirubin,Urine Negative (Negative); Clarity,Urine Clear (Clear); Color,Urine Straw (Yellw/Straw); Glucose,Urine (UA) Negative (Negative); Leukocyte Esterase,Urine Negative (Negative); Mucus,Urine Few /lpf (Occasional); Nitrite,Urine Negative (Negative); Specific Gravity,Urine 1.033 (1.002-1.035); Squamous Epithelial Cell,Urine <1 /hpf (0-5)
[2018-05-17] MEDS ORDERED: Sodium Chlor 0.9% Inj 250 ML IV.SIG SCH (10:00)
[2018-05-17] MEDS: Morphine Inj 4 MG/ML Vial IV.PUSH PRN ×3 (11:54→20:18)
--- NOTE | 2018-05-17 12:57 | P.CONGI ---
History of Present Illness Consult date: 05/17/18 Consult reason: GI bleed Chief complaint: GI Bleed History of Present Illness: This patient is an 82-year-old female who presented to the emergency room at [facility] with complaint of nausea vomiting and abdominal pain. Past medical history significant for right lower lobe lung mass and Sjogren's syndrome. Surgical history significant for cardiac stent and lobectomy of lung. Upon consultation, patient reports onset of nausea with projectile vomiting since 2 AM this morning. States that this was precipitated by 24 hours of experiencing decreased appetite with nausea and generalized weakness. Patient states during the 2 episodes of projectile vomiting at home she also had formed black tarry stools. Last colonoscopy done in February 2018 revealed diverticulosis in the sigmoid colon with multiple polyps, internal and external hemorrhoids. She reports emesis was clear and denies hematemesis. Patient endorses taking aspirin 81 mg p.o. daily and denies any use of NSAIDs. She reports history of gastritis noted on EGD done in February 2018. History of GERD for which patient takes Protonix 40 mg p.o. daily. Patient denies any known family history of gastrointestinal disorders and denies any use of tobacco or alcohol products. <Gissell Dewitt - Last Filed: 05/17/18 12:44> Review of Systems All other systems reviewed negative except as stated in HPI <Gissell Dewitt - Last Filed: 05/17/18 12:44> PMFSH - History History Provided By: Patient - Medical History Medical History: Medical History (Last Updated 03/17/18 @ 09:39 by Osiris Pope RN) Right lower lobe lung mass Sjoegren syndrome - Surgical History Surgical History: Surgical History (Last Updated 03/17/18 @ 09:39 by Osiris Pope RN) History of heart artery stent Status post lobectomy of lung - Tobacco History Second Hand Smoke Exposure: No Tobacco Use In Past 30 Days: No Smoking Status: Former smoker Tobacco Type: Cigarettes - Alcohol History How Often Do You Have a Drink Containing Alcohol: Never - Substance Use History Substance History: No History of Abuse - Travel History Recent Travel in the [place] Within the Last 8 Weeks: No Recent Travel Out of the Country Within the Last 8 Weeks: No - Immunization History Tetanus Immunization: Unsure <Gissell Dewitt - Last Filed: 05/17/18 12:44> - Medical History Medical History: Medical History (Last Updated 03/17/18 @ 09:39 by Osiris Pope, RN) Right lower lobe lung mass Sjoegren syndrome - Surgical History Surgical History: Surgical History (Last Updated 03/17/18 @ 09:39 by Osiris Pope, RN) History of heart artery stent Status post lobectomy of lung <Mariana Lopez - Last Filed: 05/17/18 13:09> Medications and Allergies Active Medications: Active Medications Acetaminophen (Tylenol) 650 mg PO Q4H PRN PRN Reason: Temp > 100.4 Al Hydroxide/Mg Hydroxide (Milk Of Magnesia Liq) 30 ml PO Q12H PRN PRN Reason: Mild Constipation Bisacodyl (Dulcolax Supp) 10 mg RECTAL DAILY PRN PRN Reason: SEVERE CONSITIPATION Sodium Chloride (Ns Inj) 1,000 mls @ 100 mls/hr IV.CONT .Q10H [facility] Last Admin: 05/17/18 06:41 Dose: 100 mls/hr Pantoprazole Sodium 80 mg/ (Sodium Chloride) 100 mls @ 10 mls/hr IV.CONT Q10H [facility] Last Admin: 05/17/18 08:32 Dose: 10 mls/hr Sodium Chloride (Ns Inj) 250 mls @ 15 mls/hr IV.SIG ONCE [facility] Stop: 05/18/18 02:39 Last Admin: 05/17/18 11:53 Dose: 15 mls/hr Lactulose (Lactulose Liq) 30 ml PO DAILY PRN PRN Reason: SEVERE CONSITIPATION Morphine Sulfate (Morphine Inj) 2 mg IV.PUSH Q4H PRN PRN Reason: PAIN 6-10 Last Admin: 05/17/18 11:54 Dose: 2 mg Ondansetron HCl (Zofran Inj) 4 mg IV.PUSH Q6H PRN PRN Reason: NAUSEA OR VOMITING Prochlorperazine Edisylate (Compazine Inj) 10 mg IV.PUSH Q6H PRN PRN Reason: NAUSEA Last Admin: 05/17/18 10:46 Dose: 10 mg Senna/Docusate Sodium (Jessie-Colace) 1 tab PO BID [facility] Last Admin: 05/17/18 08:31 Dose: Not Given Sennosides (Senokot) 17.2 mg PO Q12H PRN PRN Reason: Moderate Constipation <Gissell Dewitt - Last Filed: 05/17/18 12:44> Active Medications: Active Medications Acetaminophen (Tylenol) 650 mg PO Q4H PRN PRN Reason: Temp > 100.4 Al Hydroxide/Mg Hydroxide (Milk Of Magnesia Liq) 30 ml PO Q12H PRN PRN Reason: Mild Constipation Bisacodyl (Dulcolax Supp) 10 mg RECTAL DAILY PRN PRN Reason: SEVERE CONSITIPATION Sodium Chloride (Ns Inj) 1,000 mls @ 100 mls/hr IV.CONT .Q10H [facility] Last Admin: 05/17/18 06:41 Dose: 100 mls/hr Pantoprazole Sodium 80 mg/ (Sodium Chloride) 100 mls @ 10 mls/hr IV.CONT Q10H [facility] Last Admin: 05/17/18 08:32 Dose: 10 mls/hr Sodium Chloride (Ns Inj) 250 mls @ 15 mls/hr IV.SIG ONCE [facility] Stop: 05/18/18 02:39 Last Admin: 05/17/18 11:53 Dose: 15 mls/hr Lactulose (Lactulose Liq) 30 ml PO DAILY PRN PRN Reason: SEVERE CONSITIPATION Morphine Sulfate (Morphine Inj) 2 mg IV.PUSH Q4H PRN PRN Reason: PAIN 6-10 Last Admin: 05/17/18 11:54 Dose: 2 mg Ondansetron HCl (Zofran Inj) 4 mg IV.PUSH Q6H PRN PRN Reason: NAUSEA OR VOMITING Prochlorperazine Edisylate (Compazine Inj) 10 mg IV.PUSH Q6H PRN PRN Reason: NAUSEA Last Admin: 05/17/18 10:46 Dose: 10 mg Senna/Docusate Sodium (Jessie-Colace) 1 tab PO BID [facility] Last Admin: 05/17/18 08:31 Dose: Not Given Sennosides (Senokot) 17.2 mg PO Q12H PRN PRN Reason: Moderate Constipation <Mariana Lopez - Last Filed: 05/17/18 13:09> Allergies Allergy/AdvReac Type Severity Reaction Status Date / Time Sulfa (Sulfonamide Allergy Severe Anaphylaxis Verified 05/17/18 03:34 Antibiotics) amoxicillin Allergy Mild nausea Verified 05/17/18 03:34 codeine Allergy Mild constipatio Verified 05/17/18 03:34 n Home Medications Medication Instructions Recorded Confirmed Type amlodipine 5 mg PO DAILY 03/17/18 05/17/18 History aspirin [Aspirin Low Dose] 1 tab PO DAILY 03/17/18 05/17/18 History finasteride 1 mg PO DAILY 03/17/18 05/17/18 History isosorbide mononitrate 30 mg PO DAILY 03/17/18 05/17/18 History pantoprazole 20 mg PO BID 03/18/18 05/17/18 History hydrocodone-acetaminophen 1 tab PO Q4-6H PRN 05/17/18 05/17/18 History lisinopril 10 mg PO DAILY 05/17/18 05/17/18 History Exam Vital signs: Vital Signs 05/17/18 03:27 05/17/18 03:57 05/17/18 05:08 Temperature 97.7 F Pulse Rate 103 H 105 H 97 H Respiratory Rate 20 20 22 Blood Pressure 146/63 H 113/53 L 122/56 L Pulse Oximetry 96 94 L 100 05/17/18 05:21 05/17/18 06:26 05/17/18 08:00 Temperature 98.0 F Pulse Rate 80 Respiratory Rate 16 18 Blood Pressure 125/86 Pulse Oximetry 100 05/17/18 12:22 Temperature 97.7 F Pulse Rate 95 H Respiratory Rate Blood Pressure 109/55 L Pulse Oximetry Intake & Output 05/16/18 05/17/18 05/17/18 18:59 06:59 18:59 Intake Total 1999 35 / 35 Output Total 400 / 400 Balance 1999 -365 / -365 Weight 70.307 kg Intake: IV 1999 35 / 35 Protonix Inj 80 MG In NS Inj 35 35 / 35 ML @ 420 mls/hr IV.SIG BOLUS ONE Rx#:[id number] NS Inj 1,000 ML @ 2000 mls/hr 1999 IV.SIG Q30M [facility] Rx#:[id number] Intake (Blood Product) Amt 0 / 0 Rbc As-3 Leukoreduced Unit 0 / 0 [id number] Output: Urine 400 / 400 Other: Date of Last Bowel Movement 05/17/18 # Bowel Movements 2 - Constitutional no acute distress - Routine HEENT Exam Head: Present: normocephalic - Routine Respiratory Exam Present: CTA bilaterally. Absent: accessory muscle use - Routine Cardiovascular Exam Present: RRR - Routine Abdominal Exam Present: soft, normoactive bowel sounds. Absent: tenderness, distended, guarding, firm - Routine Extremities Exam Absent: edema - Routine Skin Exam Present: dry, warm - Routine Psychiatric Exam Present: normal affect, cooperative <DewittGissell - Last Filed: 05/17/18 12:44> Vital signs: Vital Signs 05/17/18 03:27 05/17/18 03:57 05/17/18 05:08 Temperature 97.7 F Pulse Rate 103 H 105 H 97 H Respiratory Rate 20 20 22 Blood Pressure 146/63 H 113/53 L 122/56 L Pulse Oximetry 96 94 L 100 05/17/18 05:21 05/17/18 06:26 05/17/18 08:00 Temperature 98.0 F Pulse Rate 80 Respiratory Rate 16 18 Blood Pressure 125/86 Pulse Oximetry 100 05/17/18 12:22 05/17/18 12:43 Temperature 97.7 F 98.6 F Pulse Rate 95 H Respiratory Rate 16 Blood Pressure 109/55 L Pulse Oximetry 98 Intake & Output 05/16/18 05/17/18 05/17/18 18:59 06:59 18:59 Intake Total 1999 35 / 35 Output Total 400 / 400 Balance 1999 -365 / -365 Weight 70.307 kg Intake: IV 1999 35 / 35 Protonix Inj 80 MG In NS Inj 35 35 / 35 ML @ 420 mls/hr IV.SIG BOLUS ONE Rx#:[id number] NS Inj 1,000 ML @ 2000 mls/hr 1999 IV.SIG Q30M [facility] Rx#:[id number] Intake (Blood Product) Amt 0 / 0 Rbc As-3 Leukoreduced Unit 0 / 0 [id number] Output: Urine 400 / 400 Other: Date of Last Bowel Movement 05/17/18 # Bowel Movements 2 <Mariana Lopez - Last Filed: 05/17/18 13:09> Results - Labs CBC & Chem 7: 05/17/18 06:15 05/17/18 03:40 Labs: Laboratory Results - last 24 hr 05/17/18 05/17/18 05/17/18 03:40 03:40 05:00 WBC 8.4 RBC 2.80 L Hgb 8.8 L Hct 25.4 L MCV 90.8 MCH 31.4 MCHC 34.6 RDW 14.5 Plt Count MPV 9.3 Prelim Diff (Auto) Slide review pending Neut % (Auto) 76.4 H Lymph % (Auto) 18.1 Cobb % (Auto) 4.3 Eos % (Auto) 0.6 Baso % (Auto) 0.6 Neut # (Auto) 6.4 Lymph # (Auto) 1.5 Cobb # (Auto) 0.4 Eos # (Auto) 0.0 Baso # (Auto) 0.0 WBC Differential . Diff Scan Auto diff confirmed Differential Comment . Platelet Estimate Low L Platelet Morphology Normal Tear Drop Cells 1+ H Ovalocytes 1+ H Sodium 143 Potassium 4.0 Chloride 110 H Carbon Dioxide 24.5 Anion Gap 9 BUN 48 H Creatinine 0.83 Estimated GFR 66 L Random Glucose 164 H Lactic Acid 2.1 H Calcium 8.1 L Magnesium 1.7 Total Bilirubin 0.1 L AST 14 L ALT 21 Alkaline Phosphatase 57 Troponin I Less than 0.02 L Total Protein 5.8 L Albumin 2.8 L Lipase 79 Urine Color Urine Clarity Urine pH Ur Specific Natalia Urine Protein Urine Glucose (UA) Urine Ketones Urine Occult Blood Urine Nitrate Urine Bilirubin Urine Urobilinogen Ur Leukocyte Esterase Urine RBC Urine WBC Ur Squamous Epith Cells Urine Mucus Micro UA Comment Ur Microscopic Review Urine Culture Comments Blood Type Blood Type Recheck Antibody Screen MTS Gel Crossmatch 05/17/18 05/17/18 05/17/18 05:00 06:15 08:30 WBC 9.3 RBC 2.46 L Hgb 7.6 L Hct 22.5 L MCV 91.6 MCH 31.1 MCHC 33.9 RDW 14.7 Plt Count MPV 9.0 Prelim Diff (Auto) Slide review pending Neut % (Auto) 82.4 H Lymph % (Auto) 12.7 Cobb % (Auto) 4.3 Eos % (Auto) 0.2 Baso % (Auto) 0.4 Neut # (Auto) 7.7 Lymph # (Auto) 1.2 Cobb # (Auto) 0.4 Eos # (Auto) 0.0 Baso # (Auto) 0.0 WBC Differential . Diff Scan Auto diff confirmed Differential Comment . Platelet Estimate Rare L Platelet Morphology Enlarged H Tear Drop Cells Ovalocytes Sodium Potassium Chloride Carbon Dioxide Anion Gap BUN Creatinine Estimated GFR Random Glucose Lactic Acid Calcium Magnesium Total Bilirubin AST ALT Alkaline Phosphatase Troponin I Total Protein Albumin Lipase Urine Color Straw Urine Clarity Clear Urine pH 5.0 Ur Specific Natalia 1.033 Urine Protein Negative Urine Glucose (UA) Negative Urine Ketones Negative Urine Occult Blood Large H Urine Nitrate Negative Urine Bilirubin Negative Urine Urobilinogen Less than 2 Ur Leukocyte Esterase Negative Urine RBC 1 Urine WBC Less than 1 Ur Squamous Epith Cells <1 Urine Mucus Few H Micro UA Comment Culture not ind Ur Microscopic Review Not Reportable Urine Culture Comments Culture not ind Blood Type O Positive Blood Type Recheck Required Antibody Screen Negative MTS Gel Crossmatch See Detail 05/17/18 09:15 WBC RBC Hgb Hct MCV MCH MCHC RDW Plt Count MPV Prelim Diff (Auto) Neut % (Auto) Lymph % (Auto) Cobb % (Auto) Eos % (Auto) Baso % (Auto) Neut # (Auto) Lymph # (Auto) Cobb # (Auto) Eos # (Auto) Baso # (Auto) WBC Differential Diff Scan Differential Comment Platelet Estimate Platelet Morphology Tear Drop Cells Ovalocytes Sodium Potassium Chloride Carbon Dioxide Anion Gap BUN Creatinine Estimated GFR Random Glucose Lactic Acid Calcium Magnesium Total Bilirubin AST ALT Alkaline Phosphatase Troponin I Total Protein Albumin Lipase Urine Color Urine Clarity Urine pH Ur Specific Natalia Urine Protein Urine Glucose (UA) Urine Ketones Urine Occult Blood Urine Nitrate Urine Bilirubin Urine Urobilinogen Ur Leukocyte Esterase Urine RBC Urine WBC Ur Squamous Epith Cells Urine Mucus Micro UA Comment Ur Microscopic Review Urine Culture Comments Blood Type Blood Type Recheck Antibody Screen MTS Gel Crossmatch See Detail - Imaging Impressions Abdomen/Pelvis CT 05/17/18 00:00 CONCLUSION: 1. No acute findings within the abdomen and pelvis. 2. Nonacute findings include fatty liver. Nonobstructing left renal calculus, small renal cysts. Colonic diverticula. 3. Stable small nodules left lung base. Mild emphysema. <Gissell Dewitt - Last Filed: 05/17/18 12:44> - Labs CBC & Chem 7: 05/17/18 06:15 05/17/18 03:40 Labs: Laboratory Results - last 24 hr 05/17/18 05/17/18 05/17/18 03:40 03:40 05:00 WBC 8.4 RBC 2.80 L Hgb 8.8 L Hct 25.4 L MCV 90.8 MCH 31.4 MCHC 34.6 RDW 14.5 Plt Count MPV 9.3 Prelim Diff (Auto) Slide review pending Neut % (Auto) 76.4 H Lymph % (Auto) 18.1 Cobb % (Auto) 4.3 Eos % (Auto) 0.6 Baso % (Auto) 0.6 Neut # (Auto) 6.4 Lymph # (Auto) 1.5 Cobb # (Auto) 0.4 Eos # (Auto) 0.0 Baso # (Auto) 0.0 WBC Differential . Diff Scan Auto diff confirmed Differential Comment . Platelet Estimate Low L Platelet Morphology Normal Tear Drop Cells 1+ H Ovalocytes 1+ H Sodium 143 Potassium 4.0 Chloride 110 H Carbon Dioxide 24.5 Anion Gap 9 BUN 48 H Creatinine 0.83 Estimated GFR 66 L Random Glucose 164 H Lactic Acid 2.1 H Calcium 8.1 L Magnesium 1.7 Total Bilirubin 0.1 L AST 14 L ALT 21 Alkaline Phosphatase 57 Troponin I Less than 0.02 L Total Protein 5.8 L Albumin 2.8 L Lipase 79 Urine Color Urine Clarity Urine pH Ur Specific Natalia Urine Protein Urine Glucose (UA) Urine Ketones Urine Occult Blood Urine Nitrate Urine Bilirubin Urine Urobilinogen Ur Leukocyte Esterase Urine RBC Urine WBC Ur Squamous Epith Cells Urine Mucus Micro UA Comment Ur Microscopic Review Urine Culture Comments Blood Type Blood Type Recheck Antibody Screen MTS Gel Crossmatch 05/17/18 05/17/18 05/17/18 05:00 06:15 08:30 WBC 9.3 RBC 2.46 L Hgb 7.6 L Hct 22.5 L MCV 91.6 MCH 31.1 MCHC 33.9 RDW 14.7 Plt Count MPV 9.0 Prelim Diff (Auto) Slide review pending Neut % (Auto) 82.4 H Lymph % (Auto) 12.7 Cobb % (Auto) 4.3 Eos % (Auto) 0.2 Baso % (Auto) 0.4 Neut # (Auto) 7.7 Lymph # (Auto) 1.2 Cobb # (Auto) 0.4 Eos # (Auto) 0.0 Baso # (Auto) 0.0 WBC Differential . Diff Scan Auto diff confirmed Differential Comment . Platelet Estimate Rare L Platelet Morphology Enlarged H Tear Drop Cells Ovalocytes Sodium Potassium Chloride Carbon Dioxide Anion Gap BUN Creatinine Estimated GFR Random Glucose Lactic Acid Calcium Magnesium Total Bilirubin AST ALT Alkaline Phosphatase Troponin I Total Protein Albumin Lipase Urine Color Straw Urine Clarity Clear Urine pH 5.0 Ur Specific Natalia 1.033 Urine Protein Negative Urine Glucose (UA) Negative Urine Ketones Negative Urine Occult Blood Large H Urine Nitrate Negative Urine Bilirubin Negative Urine Urobilinogen Less than 2 Ur Leukocyte Esterase Negative Urine RBC 1 Urine WBC Less than 1 Ur Squamous Epith Cells <1 Urine Mucus Few H Micro UA Comment Culture not ind Ur Microscopic Review Not Reportable Urine Culture Comments Culture not ind Blood Type O Positive Blood Type Recheck Required Antibody Screen Negative MTS Gel Crossmatch See Detail 05/17/18 09:15 WBC RBC Hgb Hct MCV MCH MCHC RDW Plt Count MPV Prelim Diff (Auto) Neut % (Auto) Lymph % (Auto) Cobb % (Auto) Eos % (Auto) Baso % (Auto) Neut # (Auto) Lymph # (Auto) Cobb # (Auto) Eos # (Auto) Baso # (Auto) WBC Differential Diff Scan Differential Comment Platelet Estimate Platelet Morphology Tear Drop Cells Ovalocytes Sodium Potassium Chloride Carbon Dioxide Anion Gap BUN Creatinine Estimated GFR Random Glucose Lactic Acid Calcium Magnesium Total Bilirubin AST ALT Alkaline Phosphatase Troponin I Total Protein Albumin Lipase Urine Color Urine Clarity Urine pH Ur Specific Natalia Urine Protein Urine Glucose (UA) Urine Ketones Urine Occult Blood Urine Nitrate Urine Bilirubin Urine Urobilinogen Ur Leukocyte Esterase Urine RBC Urine WBC Ur Squamous Epith Cells Urine Mucus Micro UA Comment Ur Microscopic Review Urine Culture Comments Blood Type Blood Type Recheck Antibody Screen MTS Gel Crossmatch See Detail - Imaging Impressions Abdomen/Pelvis CT 05/17/18 00:00 CONCLUSION: 1. No acute findings within the abdomen and pelvis. 2. Nonacute findings include fatty liver. Nonobstructing left renal calculus, small renal cysts. Colonic diverticula. 3. Stable small nodules left lung base. Mild emphysema. <Mariana Lopez - Last Filed: 05/17/18 13:09> Assessment and Plan (1) GI bleed Status: Acute Code(s): K92.2 - Gastrointestinal hemorrhage, unspecified - Plan This patient is an 82-year-old female who presented to the emergency room at [facility] with complaint of nausea vomiting and abdominal pain. Past medical history significant for right lower lobe lung mass and Sjogren's syndrome. Surgical history significant for cardiac stent and lobectomy of lung. Upon consultation, patient reports onset of nausea with projectile vomiting since 2 AM this morning. States that this was precipitated by 24 hours of experiencing decreased appetite with nausea and generalized weakness. Patient states during the 2 episodes of projectile vomiting at home she also had formed black tarry stools. Last colonoscopy done in February 2018 revealed diverticulosis in the sigmoid colon with multiple polyps, internal and external hemorrhoids. She reports emesis was clear and denies hematemesis. Patient endorses taking aspirin 81 mg p.o. daily and denies any use of NSAIDs. She reports history of gastritis noted on EGD done in February 2018. History of GERD for which patient takes Protonix 40 mg p.o. daily. Patient denies any known family history of gastrointestinal disorders and denies any use of tobacco or alcohol products. GI bleed -Onset 2 AM this morning, nausea with projectile vomiting and black tarry stools. -03/11/2018 EGD-- 1.Gastritis antrum-biopsy duodenum normal-biopsy esophagitis grade B-biopsy 2.Retroflexed views revealed a hiatal hernia -03/11/2018 colonoscopy-- 1. Diverticulosis sigmoid,descending polyp sessile hepatic flexure-8 mm-hot snare polypectomy polyp sessile 8 mm cecum-hot snare polypectomy with complete removal very tortuous and floppy colon cecum seen , not able to enter cap due to looping, but seen well possible adhesions 2. There was no evidence of random biopsies from ascending and descending colon to r/o microscopic colitis 3. Retroflexed views revealed internal hemorrhoids 4. Retroflexed views revealed small internal hemorrhoids 5. Revealed external hemorrhoids -05/17/2018 hemoglobin 7.6 hematocrit 22.5 Plan -Clear liquid diet -N.p.o. after midnight -Obtain consent for EGD -Antiemetics and out of analgesics as per attending -Avoid anticoagulants and NSAIDs -Monitor for bleeding -Monitor hemoglobin and hematocrit -Continue PPI -IV hydration -Supportive care -Further recommendations to follow This patient has been seen by myself and Dr. Lopez and this note is written on his behalf - Attending Attestation Dr. Lopez <Gissell Dewitt - Last Filed: 05/17/18 12:44> (1) GI bleed Status: Acute Code(s): K92.2 - Gastrointestinal hemorrhage, unspecified - Attending Attestation Seen and examined, plan as above. Will proceed with EGD in AM. Further recommendations to follow. Thank you for the consult. <Mariana Lopez - Last Filed: 05/17/18 13:09>
--- NOTE | 2018-05-17 14:07 | ECG ---
Date Performed: 05/17/2018 Time Performed: 04:48:02 PTAGE: 82 years EKG: SINUS TACHYCARDIA ANTEROLATERAL ISCHEMIA, POSSIBLE INFERIOR ISCHEMIA ABNORMAL RHYTHM ECG PREVIOUS TRACING : 03/31/2017 18.45.50 DOCTOR: Bryant Dhillon Interpretating Date/Time 05/17/2018 14:06:06
--- NOTE | 2018-05-17 14:21 | P.HPIM ---
History of Present Illness Primary Care Physician: UNKNOWN History of Present Illness: Mrs. Perea is an 82-year-old female. She has a past history of GI bleeding and also a recent history of persistent abdominal pain and gastric distention symptoms. She comes in the hospital secondary to hyperemesis with hematemesis and melena. Acute blood loss anemia is present on lab testing and she shows a downward trend at interval testing. When I visited with her she is comfortable and able to rest with current pain treatments. She denies any fever symptoms. No chest pain reported. Inpatient Certification: I certify that the inpatient services were ordered in accordance with Medicare regulations governing the order. This includes certification that hospital inpatient services are reasonable and necessary and in the case of services not specified as inpatient-only under 42 CFR 419.22(n), that they are appropriately provided as inpatient services in accordance to with the 2-midnight benchmark under 43 CFR 412.3(e) Estimated Total Length of Stay (Days): 2 Plans for Post Hospital Care: Not yet determined Review of Systems Constitutional: No fevers, no chills no night sweats, no fatigue, no weakness Eyes: No eye pain, no blurry vision, no loss of vision ENT: No sore throat, no ear pain, no rhinorrhea Cardiovascular: No chest pain, no tachycardia, no palpitations, no syncope Respiratory: No wheezing, no cough, no shortness of breath Gastrointestinal: abdominal pain, black tarry stools, no bright red blood per rectum, vomiting/hematemesis, no diarrhea Musculoskeletal: No joint pain, no muscle cramps, no stiffness Integumentary: No rash, no ulcers, no drainage Neurologic: No sensory loss, no loss of motor function, no dizziness Psychiatric: No behavioral changes, no hallucinations, no suicidal ideations [facility] - History History Provided By: Patient - Medical History Medical History: Medical History (Last Updated 03/17/18 @ 09:39 by Osiris Pope RN) Right lower lobe lung mass Sjoegren syndrome - Surgical History Surgical History: Surgical History (Last Updated 03/17/18 @ 09:39 by Osiris Pope RN) History of heart artery stent Status post lobectomy of lung - Family History Family History: Family History (Last Updated 05/17/18 @ 14:13 by Eh Louis MD) Other Osteoarthritis - Tobacco History Second Hand Smoke Exposure: No Tobacco Use In Past 30 Days: No Smoking Status: Former smoker Tobacco Type: Cigarettes - Alcohol History How Often Do You Have a Drink Containing Alcohol: Never - Substance Use History Substance History: No History of Abuse - Travel History Recent Travel in the [place] Within the Last 8 Weeks: No Recent Travel Out of the Country Within the Last 8 Weeks: No - Immunization History Tetanus Immunization: Unsure Medications and Allergies Active Medications: Active Medications Acetaminophen (Tylenol) 650 mg PO Q4H PRN PRN Reason: Temp > 100.4 Al Hydroxide/Mg Hydroxide (Milk Of Magnesia Liq) 30 ml PO Q12H PRN PRN Reason: Mild Constipation Bisacodyl (Dulcolax Supp) 10 mg RECTAL DAILY PRN PRN Reason: SEVERE CONSITIPATION Sodium Chloride (Ns Inj) 1,000 mls @ 100 mls/hr IV.CONT .Q10H [facility] Last Admin: 05/17/18 06:41 Dose: 100 mls/hr Pantoprazole Sodium 80 mg/ (Sodium Chloride) 100 mls @ 10 mls/hr IV.CONT Q10H [facility] Last Admin: 05/17/18 08:32 Dose: 10 mls/hr Sodium Chloride (Ns Inj) 250 mls @ 15 mls/hr IV.SIG ONCE VALERY Stop: 05/18/18 02:39 Last Admin: 05/17/18 11:53 Dose: 15 mls/hr Lactulose (Lactulose Liq) 30 ml PO DAILY PRN PRN Reason: SEVERE CONSITIPATION Morphine Sulfate (Morphine Inj) 2 mg IV.PUSH Q4H PRN PRN Reason: PAIN 6-10 Last Admin: 05/17/18 11:54 Dose: 2 mg Ondansetron HCl (Zofran Inj) 4 mg IV.PUSH Q6H PRN PRN Reason: NAUSEA OR VOMITING Prochlorperazine Edisylate (Compazine Inj) 10 mg IV.PUSH Q6H PRN PRN Reason: NAUSEA Last Admin: 05/17/18 10:46 Dose: 10 mg Senna/Docusate Sodium (Jessie-Colace) 1 tab PO BID VALERY Last Admin: 05/17/18 08:31 Dose: Not Given Sennosides (Senokot) 17.2 mg PO Q12H PRN PRN Reason: Moderate Constipation Allergies Allergy/AdvReac Type Severity Reaction Status Date / Time Sulfa (Sulfonamide Allergy Severe Anaphylaxis Verified 05/17/18 03:34 Antibiotics) amoxicillin Allergy Mild nausea Verified 05/17/18 03:34 codeine Allergy Mild constipatio Verified 05/17/18 03:34 n Home Medications Medication Instructions Recorded Confirmed Type amlodipine 5 mg PO DAILY 03/17/18 05/17/18 History aspirin [Aspirin Low Dose] 1 tab PO DAILY 03/17/18 05/17/18 History finasteride 1 mg PO DAILY 03/17/18 05/17/18 History isosorbide mononitrate 30 mg PO DAILY 03/17/18 05/17/18 History pantoprazole 20 mg PO BID 03/18/18 05/17/18 History hydrocodone-acetaminophen 1 tab PO Q4-6H PRN 05/17/18 05/17/18 History lisinopril 10 mg PO DAILY 05/17/18 05/17/18 History Exam Vital signs: Vital Signs 05/17/18 03:27 05/17/18 03:57 05/17/18 05:08 Temperature 97.7 F Pulse Rate 103 H 105 H 97 H Respiratory Rate 20 20 22 Blood Pressure 146/63 H 113/53 L 122/56 L Pulse Oximetry 96 94 L 100 05/17/18 05:21 05/17/18 06:26 05/17/18 08:00 Temperature 98.0 F Pulse Rate 80 Respiratory Rate 16 18 Blood Pressure 125/86 Pulse Oximetry 100 05/17/18 12:22 05/17/18 12:43 Temperature 97.7 F 98.6 F Pulse Rate 95 H Respiratory Rate 16 Blood Pressure 109/55 L Pulse Oximetry 98 Intake & Output 05/16/18 05/17/18 05/17/18 18:59 06:59 18:59 Intake Total 1999 35 / 35 Output Total 400 / 400 Balance 1999 -365 / -365 Weight 70.307 kg Intake: IV 1999 35 / 35 Protonix Inj 80 MG In NS Inj 35 35 / 35 ML @ 420 mls/hr IV.SIG BOLUS ONE Rx#:[id number] NS Inj 1,000 ML @ 2000 mls/hr 1999 IV.SIG Q30M VALERY Rx#:[id number] Intake (Blood Product) Amt 0 / 0 Rbc As-3 Leukoreduced Unit 0 / 0 [id number] Output: Urine 400 / 400 Other: Date of Last Bowel Movement 05/17/18 # Bowel Movements 2 Narrative: GENERAL: NAD, A&Ox3 HEAD: Normocephalic. MOUTH/PHARYNX: No post nasal blood seen NECK: Supple, trachea midline. No lymphadenopathy. EYES: No scleral icterus. No injection or drainage. CARDIOVASCULAR: Regular rate and rhythm without murmurs, gallops, or rubs. RESPIRATORY: Breath sounds equal bilaterally. No accessory muscle use. GASTROINTESTINAL: Abdomen soft, non-tender, nondistended. MUSCULOSKELETAL: No cyanosis, or edema. SKIN: Warm and dry. NEURO: No focal neurological deficits. Results - Labs CBC & Chem 7: 05/17/18 06:15 05/17/18 03:40 Labs: Short CBC 05/17/18 05/17/18 Range/Units 03:40 06:15 WBC 8.4 9.3 (4.0-11.0) th/mm3 Hgb 8.8 L 7.6 L (11.6-15.3) gm/dL Hct 25.4 L 22.5 L (35.0-46.0) % Plt Count (150-450) th/mm3 BMP 05/17/18 03:40 Sodium 143 Potassium 4.0 Chloride 110 H Carbon Dioxide 24.5 BUN 48 H Creatinine 0.83 Calcium 8.1 L Cardiac Enzymes 05/17/18 Range/Units 03:40 Troponin I Less than 0.02 L (0.02-0.05) ng/mL Liver Function 05/17/18 Range/Units 03:40 Total Bilirubin 0.1 L (0.2-1.0) mg/dL AST 14 L (15-37) U/L ALT 21 (10-53) U/L Alkaline Phosphatase 57 (45-117) U/L Albumin 2.8 L (3.4-5.0) g/dL Urine 05/17/18 Range/Units 08:30 Urine Color Straw (Yellw/Straw) Urine Clarity Clear (Clear) Urine pH 5.0 (5.0-8.5) Ur Specific [place] 1.033 (1.002-1.035) Urine Protein Negative (Neg-Trace) mg/dL Urine Glucose (UA) Negative (Negative) mg/dL - Imaging Impressions Abdomen/Pelvis CT 05/17/18 00:00 CONCLUSION: 1. No acute findings within the abdomen and pelvis. 2. Nonacute findings include fatty liver. Nonobstructing left renal calculus, small renal cysts. Colonic diverticula. 3. Stable small nodules left lung base. Mild emphysema. Caprini VTE Risk Assessment Caprini VTE Risk Assessment: No/Low Risk (score <= 1) VTE Pharmacological Exception Reason: Active bleeding Caprini Risk Assessment Model: Point Value = 1 Point Value = 2 Point Value = 3 Point Value = 5 Age 41-60 Minor surgery BMI > 25 kg/m2 Swollen legs Varicose veins or History of unexplained or recurrent spontaneous Oral contraceptives or hormone replacement Sepsis (< 1 month) Serious lung disease, including pneumonia (< 1 month) Abnormal pulmonary function Acute myocardial infarction Congestive heart failure (< 1 month) History of inflammatory bowel disease Medical patient at bed rest Age 61-74 Arthroscopic surgery Major open surgery (> 45 min) Laparoscopic surgery (> 45 min) Malignancy Confined to bed (> 72 hours) Immobilizing plaster cast Central venous access Age >= 75 History of VTE Family history of VTE Factor V Leiden Prothrombin [id number] Lupus anticoagulant Anticardiolipin antibodies Elevated serum homocysteine Heparin-induced thrombocytopenia Other congenital or acquired thrombophilia Stroke (< 1 month) Elective arthroplasty Hip, pelvis, or leg fracture Acute spinal cord injury (< 1 month) Prophylaxis Regimen: Total Risk Factor Score Risk Level Prophylaxis Regimen 0-1 Low Early ambulation 2 Moderate Order ONE of the following: *Sequential Compression Device (SCD) *Heparin 5000 units SQ BID 3-4 Higher Order ONE of the following medications: *Heparin 5000 units SQ TID *Enoxaparin/Lovenox 40 mg SQ daily (WT < 150 kg, CrCl > 30 mL/min) *Enoxaparin/Lovenox 30 mg SQ daily (WT < 150 kg, CrCl > 10-29 mL/min) *Enoxaparin/Lovenox 30 mg SQ BID (WT < 150 kg, CrCl > 30 mL/min) AND/OR *Sequential Compression Device (SCD) 5 or more Highest Order ONE of the following medications: *Heparin 5000 units SQ TID (Preferred with Epidurals) *Enoxaparin/Lovenox 40 mg SQ daily (WT < 150 kg, CrCl > 30 mL/min) *Enoxaparin/Lovenox 30 mg SQ daily (WT < 150 kg, CrCl > 10-29 mL/min) *Enoxaparin/Lovenox 30 mg SQ BID (WT < 150 kg, CrCl > 30 mL/min) AND *Sequential Compression Device (SCD) Assessment and Plan - Plan 82-year-old female admitted secondary to GI bleed, hematemesis, and acute blood loss anemia Gastrointestinal bleed Hematemesis Acute blood loss anemia Abdominal pain Transfuse 2 units packed red blood cells on 05/17/2018 Follow hemoglobin closely Continue as needed treatment for pain GI consulted Plan for EGD tomorrow morning Further transfusions as needed PRN antiemetics Sjogren's syndrome May be contributory, especially if her Sjogren's syndrome symptoms represent a broader autoimmune condition Rule out ulcer and varices with EGD If no findings other than inflammation are present may provide a trial of steroids to treat for presumptive exacerbation of autoimmune condition Coronary artery disease History of coronary stent Follow clinically No chest pain reported History of right lower lobe mass History of right lower lobectomy Follow clinically No respiratory distress DVT prophylaxis SCDs Systemic anticoagulation contraindicated H&P: Quality - VTE Deep Vein Thrombosis/Pulmonary Embolism Present on Admission: No
[2018-05-17 20:39] LABS: Hematocrit 25.7 % (35.0-46.0); Hemoglobin 8.7 gm/dL (11.6-15.3)
[2018-05-18] MEDS: Morphine Inj 4 MG/ML Vial IV.PUSH PRN ×5 (00:16→22:21)
[2018-05-18] MEDS: Sod Chloride 0.9% Inj 1,000 ML IV.CONT SCH ×4 (04:01→22:31)
[2018-05-18] MEDS: Pantoprazole Inj 80 MG in Sodium Chlor 0.9% Inj 100 ML IV.CONT SCH ×2 (05:09→17:14)
[2018-05-18 06:56] LABS: Baso # (Auto) 0.1 th/mm3 (0.0-0.2); Baso % (Auto) 0.6 % (0.0-2.0); Eos # (Auto) 0.1 th/mm3 (0.0-0.4); Eos % (Auto) 0.6 % (0.0-4.0); Lymph # (Auto) 1.2 th/mm3 (1.0-4.8); Lymph % (Auto) 10.4 % (9.0-44.0); Mean Corpuscular HGB Conc 34.1 % (32.0-36.0); Mean Corpuscular Hemoglobin 30.3 pg (27.0-34.0); Mean Corpuscular Volume 89.1 fL (80.0-100.0); Mean Platelet Volume 9.4 fL (7.0-11.0); Mono # (Auto) 0.6 th/mm3 (0.0-0.9); Mono % (Auto) 5.1 % (0.0-8.0); Neut # (Auto) 9.7 th/mm3 (1.8-7.7); Neut % (Auto) 83.3 % (16.0-70.0); Red Blood Count 2.21 mil/mm3 (4.00-5.30); Red Cell Distribution Width 15.7 % (11.6-17.2); White Blood Count 11.6 th/mm3 (4.0-11.0)
[2018-05-18] MEDS ORDERED: Metoprolol Tartrate 25 MG Tablet PO ONE (06:59)
[2018-05-18] MEDS ORDERED: Chlorhexidine Gluconate 2% 1 Pack (2 Cloths) TOPICAL ONE (06:59)
[2018-05-18] MEDS ORDERED: Sodium Chlor 0.9% Inj 500 ML IV.SIG SCH (07:00)
[2018-05-18 07:25] LABS: Albumin 2.2 g/dL (3.4-5.0); Carbon Dioxide 23.3 meq/L (21.0-32.0); Potassium 3.8 meq/L (3.5-5.1); Total Protein 4.2 g/dL (6.4-8.2)
[2018-05-18 07:47] LABS: Hemoglobin 6.7 gm/dL (11.6-15.3)
[2018-05-18 07:48] LABS: Hematocrit 19.7 % (35.0-46.0)
[2018-05-18] MEDS: Senna/Docusate Sodium 8.6/50 MG Tablet PO SCH ×2 (08:49→22:25)
[2018-05-18] MEDS ORDERED: Succinylcholine Inj 100 MG/5 ML Syringe IV.PUSH ONE (11:15)
[2018-05-18] MEDS ORDERED: Phenylephrine/NS 1000 MCG/10ML Syringe IV.PUSH ONE (11:15)
--- NOTE | 2018-05-18 12:00 | GIPROC ---
[facility] [address] [facility]. [facility], [address] EGD PROCEDURE REPORT EXAM DATE: 05/18/2018 PATIENT NAME: Mera Perea MR #: [id number] BIRTHDATE: 1935 ATTENDING: Mariana Lopez MD ORDER #: [id number] HYDROELECTRIC STATION OPERATOR CHIEF: Miguelito Bales and Chanel Graves STATUS: inpatient INDICATIONS: The patient is a 82 yr old female here for an EGD due to nausea and vomiting PROCEDURE PERFORMED: EGD w/ biopsy MEDICATIONS: Per Anesthesia and None. TOPICAL ANESTHETIC: none CONSENT: The patient understands the risks and benefits of the procedure and understands that these risks include, but are not limited to: sedation, allergic reaction, infection, perforation and/or bleeding. Alternative means of evaluation and treatment include, among others: physical exam, x-rays, and/or surgical intervention. The patient elects to proceed with this endoscopic procedure. medical equipment was checked for proper function. Hand hygiene and appropriate measures for infection prevention was taken. After the risks, benefits and alternatives of the procedure were thoroughly explained, Informed consent was verified, confirmed and timeout was successfully executed by the treatment team. The patient was anesthetized with topical anesthesia and the Pentax [id number] endoscope was introduced through the mouth and advanced to the second portion of the duodenum. Retroflexed views revealed Large amount of fresh blood The gastroscope was then slowly withdrawn and removed. ESOPHAGUS: The esophagus was otherwise normal. STOMACH: There was mild gastritis in the entire examined stomach. A biopsy was performed using cold forceps. Sample sent for histology. Large amount of fresh blood covering the stomach, the entire mucosa was inspected after suctioning, no abnormalities or source of bleeding identified. DUODENUM: The duodenal mucosa appeared normal. ADVERSE EVENTS: There were no complications. IMPRESSIONS: 1. The esophagus was otherwise normal 2. There was mild gastritis in the entire examined stomach; biopsy was performed 3. Large amount of fresh blood covering the stomach, the entire mucosa was inspected after suctioning, no abnormalities or source of bleeding identified 4. Normal duodenal mucosa 5. Retroflexed views revealed Large amount of fresh blood RECOMMENDATIONS: 1. Continue PPI 2. Await biopsy results. Biopsy results will not be ready for 7-10 days. If you don't hear from us in two weeks, call our office for biopsy results. PATIENT CONDITION: stable DISPOSITION: Observation REPEAT EXAM: Return 2 months EGD Mariana Lopez MD eSigned: Mariana Lopez MD 05/18/2018 12:00 PM cc: PATIENT NAME: Mera Perea MR#: [id number]
[2018-05-18] MEDS ORDERED: *morphine SULFATE 4 MG/ML PERIprocedure ONLY ONE (12:35)
[2018-05-18] MEDS ORDERED: fentaNYL Citrate Inj 100 MCG/2 ML Ampul ONE (13:18)
--- NOTE | 2018-05-18 14:38 | P.PN ---
Subjective Interval history: Follow-up visit for GI bleed. Patient is seen and examined resting in bed with daughter at bedside, reports of feeling tired. She also complains of bilateral rib pain, history of costochondritis. Patient endorses dizziness and lightheadedness with activity or when sitting up in bed, denies any shortness of breath, cough or chest pain. She continues to have ongoing nausea. Questions regarding ongoing treatment and evaluation for GI bleed due to the fact that her hemoglobin dropped overnight after receiving blood. Daughter also notes that while she was out of the room for GI procedure she also had another episode of bloody stool. Physical Exam Vital signs: Vital Signs 05/17/18 15:46 05/17/18 15:56 05/17/18 17:22 Temperature 98.6 F 98.6 F Pulse Rate 100 H Respiratory Rate 16 Blood Pressure 123/58 L 126/56 L Pulse Oximetry 98 98 05/17/18 20:00 05/18/18 00:00 05/18/18 04:00 Temperature 98.2 F 98.0 F 97.9 F Pulse Rate 92 H 86 106 H Respiratory Rate 17 16 17 Blood Pressure 120/59 L 128/66 144/64 H Pulse Oximetry 98 96 95 05/18/18 08:00 05/18/18 09:15 05/18/18 09:46 Temperature 97.7 F 97.2 F L 97.2 F L Pulse Rate 107 H 106 H 108 H Respiratory Rate 16 18 16 Blood Pressure 118/58 L 127/85 127/56 L Pulse Oximetry 97 97 97 05/18/18 10:38 05/18/18 11:57 05/18/18 12:00 Temperature 97.6 F Pulse Rate 110 H 110 H Respiratory Rate 16 16 Blood Pressure 148/65 H 142/62 H Pulse Oximetry 97 95 96 05/18/18 12:15 05/18/18 12:30 05/18/18 12:45 Temperature Pulse Rate 108 H 108 H 102 H Respiratory Rate 16 16 16 Blood Pressure 134/63 132/60 113/57 L Pulse Oximetry 100 100 97 05/18/18 13:00 05/18/18 13:15 05/18/18 13:50 Temperature 97.7 F Pulse Rate 104 H 106 H 101 H Respiratory Rate 16 16 16 Blood Pressure 114/56 L 124/52 L 116/56 L Pulse Oximetry 98 98 99 05/18/18 14:27 Temperature 97.7 F Pulse Rate 105 H Respiratory Rate 16 Blood Pressure 118/56 L Pulse Oximetry 99 Intake & Output 05/17/18 05/18/18 05/18/18 18:59 06:59 18:59 Intake Total 135 / 135 100 / 100 280 / 280 Output Total 700 / 700 Balance -565 / -565 100 / 100 280 / 280 Weight 71.4 kg Intake: IV 135 / 135 100 / 100 Protonix Inj 80 MG In NS Inj 100 / 100 100 / 100 100 ML @ 10 mls/hr IV.CONT Q10H VALERY Rx#:[id number] Protonix Inj 80 MG In NS Inj 35 35 / 35 ML @ 420 mls/hr IV.SIG BOLUS ONE Rx#:[id number] Anesthesia Amount 200 / 200 Intake (Blood Product) Amt 0 / 0 80 / 80 Rbc As-3 Leukoreduced Unit 80 / 80 [id number] Rbc As-3 Leukoreduced Unit 0 / 0 [id number] Rbc As-3 Leukoreduced Unit 0 / 0 [id number] Output: Urine 700 / 700 Other: # Voids 2 5 Date of Last Bowel Movement 05/17/18 05/17/18 05/18/18 # Bowel Movements 2 2 # Incontinent Bowel Movements 1 Narrative: GENERAL: Well-nourished, well-developed female in no acute distress. SKIN: Warm, dry, pale. HEAD: Atraumatic. Normocephalic. EYES: Pupils equal. No scleral icterus. No injection or drainage. ENT: No nasal bleeding or discharge. Mucous membranes pink and moist. NECK: Trachea midline. No JVD. CARDIOVASCULAR: Regular rate and rhythm. RESPIRATORY: No accessory muscle use. Clear to auscultation. Breath sounds equal bilaterally. GASTROINTESTINAL: Abdomen soft, non-tender, nondistended. + Bowel sounds MUSCULOSKELETAL: Extremities without clubbing, cyanosis, or edema. No obvious deformities. NEUROLOGICAL: Awake, alert, oriented x3. No obvious cranial nerve deficits. Motor grossly within normal limits. Normal speech. PSYCHIATRIC: Appropriate mood and affect; insight and judgment normal. Results - Labs CBC & Chem 7: 05/18/18 05:32 05/18/18 05:32 Laboratory Results - last 24 hr 05/17/18 05/17/18 05/17/18 05:00 09:15 20:09 WBC RBC Hgb 8.7 L Hct 25.7 L MCV MCH MCHC RDW Plt Count MPV Prelim Diff (Auto) Neut % (Auto) Lymph % (Auto) [place] % (Auto) Eos % (Auto) Baso % (Auto) Neut # (Auto) Lymph # (Auto) [place] # (Auto) Eos # (Auto) Baso # (Auto) WBC Differential Diff Scan Differential Comment Platelet Estimate Platelet Morphology Sodium Potassium Chloride Carbon Dioxide Anion Gap BUN Creatinine Estimated GFR Random Glucose Calcium Prot Corrected Calcium Total Bilirubin AST ALT Alkaline Phosphatase Total Protein Albumin MTS Gel Crossmatch See Detail See Detail 05/18/18 05/18/18 05/18/18 05:32 05:32 07:24 WBC 11.6 H RBC 2.21 L Hgb 6.7 L* D Hct 19.7 L* MCV 89.1 MCH 30.3 MCHC 34.1 RDW 15.7 Plt Count MPV 9.4 Prelim Diff (Auto) Slide review pending Neut % (Auto) 83.3 H Lymph % (Auto) 10.4 [place] % (Auto) 5.1 Eos % (Auto) 0.6 Baso % (Auto) 0.6 Neut # (Auto) 9.7 H Lymph # (Auto) 1.2 [place] # (Auto) 0.6 Eos # (Auto) 0.1 Baso # (Auto) 0.1 WBC Differential . Diff Scan Auto diff confirmed Differential Comment . Platelet Estimate Low L Platelet Morphology Enlarged H Sodium 146 H Potassium 3.8 Chloride 115 H Carbon Dioxide 23.3 Anion Gap 8 BUN 33 H Creatinine 0.91 Estimated GFR 59 L Random Glucose 142 H Calcium 7.0 L* D Prot Corrected Calcium 8.6 Total Bilirubin 0.2 AST 14 L ALT 18 Alkaline Phosphatase 41 L Total Protein 4.2 L D Albumin 2.2 L D MTS Gel Crossmatch See Detail Assessment and Plan - Plan 82-year-old female admitted secondary to GI bleed, hematemesis, and acute blood loss anemia Gastrointestinal bleed Hematemesis Acute blood loss anemia Abdominal pain, improved, costochondritis pain, chronic -Transfuse 2 units packed red blood cells on 05/17/2018--H&H 8.7/25.7-->6.7/19.7 - Transfuse with additional 3units of PRBC's today -GI consulted, appreciate assistance. - EGD 05/18 with mild gastritis noted but no active bleeding site -Continue PRN antiemetics, Lidoderm patch for costochondritis -Clear liquid diet until better tolerating, continue following H&H -Discussed with GI nurse, patient with further questions regarding plan on further investigating bleeding site. Sjogren's syndrome -May be contributory, especially if her Sjogren's syndrome symptoms represent a broader autoimmune condition -Could consider trial of steroids for treatment of presumptive exacerbation of autoimmune condition, however significant drop in H&H and +bloody BM today while at the GI lab. Coronary artery disease History of coronary stent -Follow clinically -No chest pain reported History of right lower lobe mass History of right lower lobectomy -Follow clinically -No respiratory distress DVT prophylaxis-SCD's Discussed Condition With: Patient, daughter, and nursing staff
[2018-05-18 23:25] LABS: Hematocrit 25.4 % (35.0-46.0); Hemoglobin 8.9 gm/dL (11.6-15.3)
[2018-05-19] MEDS: Pantoprazole Inj 80 MG in Sodium Chlor 0.9% Inj 100 ML IV.CONT SCH ×3 (00:10→20:11)
[2018-05-19] MEDS: Morphine Inj 4 MG/ML Vial IV.PUSH PRN ×4 (02:31→18:50)
[2018-05-19 04:55] LABS: Hematocrit 21.2 % (35.0-46.0); Hemoglobin 7.4 gm/dL (11.6-15.3)
[2018-05-19] MEDS: Sod Chloride 0.9% Inj 1,000 ML IV.CONT SCH ×4 (06:43→20:45)
--- NOTE | 2018-05-19 09:14 | P.PN ---
Subjective Interval history: Follow-up visit due to gastrointestinal bleed, nausea and vomiting. Patient seen and examined this morning appears to be in no acute distress. Complains of some ongoing nausea, still not able to take any oral fluids. She is also complaining of some rib discomfort and pain. Denies any shortness of breath, cough, fevers, chills or chest pain. Patient also complains of sore throat, likely due to endoscopic procedure yesterday. Nurse reports bloody bowel movement overnight. Later in the morning patient complained of rib pain, chest pain as well as neck pain. Patient reports that the pain starts on bilateral rib sides travels to the chest and up in bilateral neck. Discussed with Dr. Hunter, stat EKG and troponin. I have also discussed with daughter and with GI team and have provided number for daughter to GI team. I have also placed a call and left a message for with my cell phone number to discuss patient. Consult placed for cardiology due to chest pain. Noted drop in H&H this morning, symptomatic, transfuse with PRBC's. EKG reviewed, non-specific ST changes similar to prior EKG, troponin 0.04, likely due to demand from anemia, continue to trend. Morphine for pain and [place] if she can tolerate. Checked back on patient around 1:15pm, she is on stretcher going for bleeding scan. Reports rib pain no longer having neck pain, with some nausea. Currently receiving unit of blood. Repeat H&H lower again at 5.6/16.1. Discussed with , transfer to ICU. Physical Exam Vital signs: Vital Signs 05/18/18 09:15 05/18/18 09:46 05/18/18 10:38 Temperature 97.2 F L 97.2 F L Pulse Rate 106 H 108 H Respiratory Rate 18 16 Blood Pressure 127/85 127/56 L Pulse Oximetry 97 97 97 05/18/18 11:57 05/18/18 12:00 05/18/18 12:15 Temperature 97.6 F Pulse Rate 110 H 110 H 108 H Respiratory Rate 16 16 16 Blood Pressure 148/65 H 142/62 H 134/63 Pulse Oximetry 95 96 100 05/18/18 12:30 05/18/18 12:45 05/18/18 13:00 Temperature Pulse Rate 108 H 102 H 104 H Respiratory Rate 16 16 16 Blood Pressure 132/60 113/57 L 114/56 L Pulse Oximetry 100 97 98 05/18/18 13:15 05/18/18 13:50 05/18/18 14:27 Temperature 97.7 F 97.7 F Pulse Rate 106 H 101 H 105 H Respiratory Rate 16 16 16 Blood Pressure 124/52 L 116/56 L 118/56 L Pulse Oximetry 98 99 99 05/18/18 14:45 05/18/18 18:36 05/18/18 20:00 Temperature 97.7 F 98.0 F 97.8 F Pulse Rate 105 H 105 H 106 H Respiratory Rate 16 16 20 Blood Pressure 118/56 L 138/65 136/62 Pulse Oximetry 99 96 97 05/19/18 00:00 05/19/18 04:00 05/19/18 08:00 Temperature 98.1 F 97.8 F 97.8 F Pulse Rate 105 H 109 H 108 H Respiratory Rate 20 18 17 Blood Pressure 133/60 116/56 L 125/58 L Pulse Oximetry 96 95 93 L Intake & Output 05/18/18 05/19/18 05/19/18 18:59 06:59 18:59 Intake Total 380 / 380 1413 / 1413 Output Total 2 / 2 100 / 100 Balance 378 / 378 1313 / 1313 Weight 71.4 kg Intake: IV 100 / 100 500 / 500 Protonix Inj 80 MG In NS Inj 100 / 100 100 / 100 100 ML @ 10 mls/hr IV.CONT Q10H [facility] Rx#:[id number] NS Inj 1,000 ML @ 100 mls/hr IV 400 / 400 .CONT .Q10H [facility] Rx#:[id number] Oral 463 / 463 Anesthesia Amount 200 / 200 Other 50 / 50 Rbc As-3 Leukoreduced Unit 50 / 50 [id number] Intake (Blood Product) Amt 80 / 80 400 / 400 Rbc As-3 Leukoreduced Unit 0 / 0 [id number] Rbc As-3 Leukoreduced Unit 0 / 0 400 / 400 [id number] Rbc As-3 Leukoreduced Unit 80 / 80 [id number] Output: Urine 1 / 1 Urine/Stool Mix 1 / 1 Emesis 100 / 100 Other: Other Intake Source Rbc As-3 Leukoreduced Unit Saline Solution [id number] # Voids 2 Date of Last Bowel Movement 05/18/18 05/19/18 # Incontinent Bowel Movements 1 Narrative: GENERAL: Well-nourished, well-developed female visible discomfort. SKIN: Warm, dry, pale. HEAD: Atraumatic. Normocephalic. EYES: Pupils equal. No scleral icterus. No injection or drainage. ENT: No nasal bleeding or discharge. Mucous membranes pink and moist. NECK: Trachea midline. No JVD. CARDIOVASCULAR: Regular rate and rhythm. RESPIRATORY: No accessory muscle use. Clear to auscultation. Breath sounds equal bilaterally. GASTROINTESTINAL: Abdomen soft, non-tender, nondistended. + Bowel sounds MUSCULOSKELETAL: Extremities without clubbing, cyanosis, or edema. No obvious deformities. NEUROLOGICAL: Awake, alert, oriented x3. No obvious cranial nerve deficits. Motor grossly within normal limits. Normal speech. PSYCHIATRIC: Appropriate mood and affect; insight and judgment normal. Results - Labs CBC & Chem 7: 05/19/18 16:45 05/19/18 11:04 Laboratory Results - last 24 hr 05/17/18 05/18/18 05/18/18 09:15 07:24 22:18 Hgb 8.9 L D Hct 25.4 L MTS Gel Crossmatch See Detail See Detail 05/19/18 04:30 Hgb 7.4 L Hct 21.2 L MTS Gel Crossmatch Assessment and Plan - Plan 82-year-old female admitted secondary to GI bleed, hematemesis, and acute blood loss anemia Acute blood loss anemia, symptomatic Abdominal pain, improved, costochondritis pain, chronic -Patient had received a total of 5 units as of this morning. Repeat H&H this morning 7.4/21.2, noted drop from H&H from last night. -Patient also symptomatic with chest pain, will transfuse with additional 3 units of PRBCs today. -Discussed with Dr. Hunter, daughter, GI team. Bleeding scan ordered, H&H around noon drop down to 5.6/16.1 - EGD 05/18 with mild gastritis noted but no active bleeding site -Transfer to intensive care unit, consult cardiology for chest pain, consult hematology for further recommendations and evaluation, appreciate assistance. -Continue PRN antiemetics, Lidoderm patch for costochondritis -PRN [place], IV morphine as needed. -Continue IV fluids, antiemetics as needed. -Consult for GI place for second opinion. Sjogren's syndrome -May be contributory, especially if her Sjogren's syndrome symptoms represent a broader autoimmune condition -Consult hematology for further evaluation, appreciate assistance. Coronary artery disease History of coronary stent Chest pain radiating to the jaw, acute -Stat EKG with nonspecific ST and T wave abnormalities, similar to prior EKG, reviewed with Dr. Hunter - Troponin 0.04, continue trending, likely demand related to anemia. Discussed with Dr Hunter - Consult cardiology for further evaluation and recommendations, appreciate assistance. 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 - Attending Attestation Patient seen independently see note Discussed at length with ELODIA , consultants and patient/ family - daughter very supportive and very involved in patient care
[2018-05-19] MEDS: Lidocaine 5% Patch T-DERMAL SCH (09:50)
--- NOTE | 2018-05-19 10:17 | P.DCO ---
- Physical Therapy Order: Evaluate and treat, Improve ambulation, Strength and gait training - Case Management Consult Case Management Consult-Home Health: Yes - Certification I have seen patient Mera Perea on 05/19/18. My clinical findings support the need for the requested home health care services because: Limited mobility due to disease progression I certify that my clinical findings support that this patient is homebound because: Post-op weakness
[2018-05-19] MEDS: Senna/Docusate Sodium 8.6/50 MG Tablet PO SCH ×2 (10:39→20:12)
[2018-05-19] MEDS ORDERED: Sodium Chlor 0.9% Inj 250 ML IV.SIG SCH ×2 (11:00→12:00)
[2018-05-19 12:12] LABS: % Iron Saturation 16.7 % (20-50); Anion Gap 5 meq/L (5-15); Blood Urea Nitrogen 28 mg/dL (7-18); Calcium 6.8 mg/dL (8.5-10.1); Carbon Dioxide 24.9 meq/L (21.0-32.0); Chloride 114 meq/L (98-107); Glomerular Filtration Rate 65 mL/min (>89); Glucose,Random 130 mg/dL (74-106); Iron 32 mcg/dL (50-170); Potassium 4.2 meq/L (3.5-5.1); Sodium 144 meq/L (136-145); Total Iron Binding Capacity 192 mcg/dL (250-450)
[2018-05-19 12:23] LABS: Albumin 1.9 g/dL (3.4-5.0); Calcium-Albumin Corrected 8.5 mg/dL (8.5-10.1); Vitamin B12 213 pg/mL (193-986)
[2018-05-19 13:04] LABS: Baso % (Auto) 0.2 % (0.0-2.0); Eos % (Auto) 0.1 % (0.0-4.0); Lymph % (Auto) 6.7 % (9.0-44.0); Mean Corpuscular HGB Conc 34.6 % (32.0-36.0); Mean Corpuscular Hemoglobin 31.7 pg (27.0-34.0); Mean Corpuscular Volume 91.6 fL (80.0-100.0); Mean Platelet Volume 11.3 fL (7.0-11.0); Mono # (Auto) 0.7 th/mm3 (0.0-0.9); Mono % (Auto) 5.1 % (0.0-8.0); Neut # (Auto) 12.4 th/mm3 (1.8-7.7); Neut % (Auto) 87.9 % (16.0-70.0); Red Blood Count 1.75 mil/mm3 (4.00-5.30); Red Cell Distribution Width 14.9 % (11.6-17.2); White Blood Count 14.2 th/mm3 (4.0-11.0)
[2018-05-19 13:23] LABS: Hematocrit 16.1 % (35.0-46.0); Hemoglobin 5.6 gm/dL (11.6-15.3)
--- NOTE | 2018-05-19 13:44 | P.PN ---
Subjective Interval history: Follow-up visit due to gastrointestinal bleed, nausea and vomiting. The patient is in bed she appears chronically ill, very pale. Patient says she has nausea on and off, did not vomit however was not able to take any oral intake. She is complaining of rib discomfort and some pain. She has no shortness of breath, cough, fever or chills. The patient also complains of lightheadedness when she was up to the bedside commode. She had bloody bowel movements overnight. Repeat H/H in the morning today at 7.4, transfuse 1 unit of blood however patient is symptomatic we will transfuse additional 2 units of blood. EKG shows sign that shows sinus tachycardia no ischemic changes and troponin is negative. Patient with demand ischemia from anemia. Patient is tachycardic due to symptomatic anemia and is transfused. Patient and family is also requesting for Dr. Archibald GI doctor on a second opinion. Discussed with Dr. Lopez current GI doctor. Also discussed with Dr. Archibald. She recommends bleeding scan which is ordered by Dr. Lopez. Repeat hemoglobin very low at 5.6. Patient is transferred to ICU after the bleeding scan. Bleeding scan is positive. Health Insurance Adjuster Dr. Scott is consulted as well. Physical Exam Vital signs: Vital Signs 05/18/18 13:50 05/18/18 14:27 05/18/18 14:45 Temperature 97.7 F 97.7 F 97.7 F Pulse Rate 101 H 105 H 105 H Respiratory Rate 16 16 16 Blood Pressure 116/56 L 118/56 L 118/56 L Pulse Oximetry 99 99 99 05/18/18 18:36 05/18/18 20:00 05/19/18 00:00 Temperature 98.0 F 97.8 F 98.1 F Pulse Rate 105 H 106 H 105 H Respiratory Rate 16 20 20 Blood Pressure 138/65 136/62 133/60 Pulse Oximetry 96 97 96 05/19/18 04:00 05/19/18 08:00 05/19/18 12:00 Temperature 97.8 F 97.8 F 98.2 F Pulse Rate 109 H 108 H 105 H Respiratory Rate 18 17 18 Blood Pressure 116/56 L 125/58 L 113/56 L Pulse Oximetry 95 93 L 95 Intake & Output 05/18/18 05/19/18 05/19/18 18:59 06:59 18:59 Intake Total 380 / 380 1413 / 1413 100 / 100 Output Total 2 / 2 100 / 100 Balance 378 / 378 1313 / 1313 100 / 100 Weight 71.4 kg Intake: IV 100 / 100 500 / 500 100 / 100 Protonix Inj 80 MG In NS Inj 100 / 100 100 / 100 100 / 100 100 ML @ 10 mls/hr IV.CONT Q10H [facility] Rx#:[id number] NS Inj 1,000 ML @ 100 mls/hr IV 400 / 400 .CONT .Q10H [facility] Rx#:[id number] Oral 463 / 463 Anesthesia Amount 200 / 200 Other 50 / 50 Rbc As-3 Leukoreduced Unit 50 / 50 [id number] Intake (Blood Product) Amt 80 / 80 400 / 400 0 / 0 Rbc As-3 Leukoreduced Unit 0 / 0 [id number] Rbc As-3 Leukoreduced Unit 0 / 0 400 / 400 [id number] Rbc As-3 Leukoreduced Unit 0 / 0 [id number] Rbc As-3 Leukoreduced Unit 80 / 80 [id number] Output: Urine Urine/Stool Mix Emesis 100 / 100 Other: Other Intake Source Rbc As-3 Leukoreduced Unit Saline Solution [id number] # Voids 2 Date of Last Bowel Movement 05/18/18 05/19/18 05/19/18 # Incontinent Bowel Movements 1 Narrative: GENERAL: The patient is a very pleasant 82-year-old female in bed, appears closed chronically ill, some discomfort. SKIN: Very pale, warm, dry. HEAD: Atraumatic. Normocephalic. EYES: Pupils equal. No scleral icterus. No injection or drainage. ENT: No nasal bleeding or discharge. Very dry mucous membranes. NECK: Trachea midline. No JVD. CARDIOVASCULAR: Tachycardic. Regular rate and rhythm. RESPIRATORY: No accessory muscle use. Clear to auscultation. Breath sounds equal bilaterally. GASTROINTESTINAL: Abdomen soft, non-tender, nondistended. + Bowel sounds MUSCULOSKELETAL: Extremities without clubbing, cyanosis, or edema. No obvious deformities. NEUROLOGICAL: Awake, alert, oriented x3. No obvious cranial nerve deficits. Motor grossly within normal limits. Normal speech. PSYCHIATRIC: Appropriate mood and affect; insight and judgment normal. Results - Labs CBC & Chem 7: 05/19/18 16:45 05/19/18 11:04 Laboratory Results - last 24 hr 05/17/18 05/17/18 05/18/18 05:00 09:15 07:24 WBC RBC Hgb Hct MCV MCH MCHC RDW Plt Count MPV Prelim Diff (Auto) Neut % (Auto) Lymph % (Auto) [place] % (Auto) Eos % (Auto) Baso % (Auto) Neut # (Auto) Lymph # (Auto) [place] # (Auto) Eos # (Auto) Baso # (Auto) Differential Comment Sodium Potassium Chloride Carbon Dioxide Anion Gap BUN Creatinine Estimated GFR Random Glucose Calcium Calcium Adj for Albumin Iron TIBC % Saturation Troponin I Albumin Vitamin B12 Folate MTS Gel Crossmatch See Detail See Detail See Detail 05/18/18 05/19/18 05/19/18 22:18 04:30 07:00 WBC RBC Hgb 8.9 L D 7.4 L Hct 25.4 L 21.2 L MCV MCH MCHC RDW Plt Count MPV Prelim Diff (Auto) Neut % (Auto) Lymph % (Auto) [place] % (Auto) Eos % (Auto) Baso % (Auto) Neut # (Auto) Lymph # (Auto) [place] # (Auto) Eos # (Auto) Baso # (Auto) Differential Comment Sodium Potassium Chloride Carbon Dioxide Anion Gap BUN Creatinine Estimated GFR Random Glucose Calcium Calcium Adj for Albumin Iron TIBC % Saturation Troponin I Albumin Vitamin B12 Folate MTS Gel Crossmatch See Detail 05/19/18 05/19/18 05/19/18 10:39 11:04 11:58 WBC 14.2 H RBC 1.75 L Hgb 5.6 L* Hct 16.1 L* MCV 91.6 MCH 31.7 MCHC 34.6 RDW 14.9 Plt Count MPV 11.3 H Prelim Diff (Auto) Slide review pending Neut % (Auto) 87.9 H Lymph % (Auto) 6.7 L [place] % (Auto) 5.1 Eos % (Auto) 0.1 Baso % (Auto) 0.2 Neut # (Auto) 12.4 H Lymph # (Auto) 1.0 [place] # (Auto) 0.7 Eos # (Auto) 0.0 Baso # (Auto) 0.0 Differential Comment . Sodium 144 Potassium 4.2 Chloride 114 H Carbon Dioxide 24.9 Anion Gap 5 BUN 28 H Creatinine 0.84 Estimated GFR 65 L Random Glucose 130 H Calcium 6.8 L* Calcium Adj for Albumin 8.5 Iron 32 L TIBC 192 L % Saturation 16.7 L Troponin I 0.04 Albumin 1.9 L Vitamin B12 213 Folate Greater than 20.0 H MTS Gel Crossmatch Assessment and Plan - Plan 82-year-old female admitted secondary to GI bleed, hematemesis, and acute blood loss anemia Acute blood loss anemia, symptomatic Abdominal pain, improved, costochondritis pain, chronic -Patient had received a total of 5 units as of this morning. Repeat H&H this morning 7.4/21.2, noted drop from H&H from last night. -Patient also symptomatic with chest pain, will transfuse with additional 3 units of PRBCs today. -Nuclear medicine bleeding scan for further evaluation. H&H around noon drop down to 5.6/16.1 -EGD 05/18 with mild gastritis noted but no active bleeding site -Transfer to intensive care unit, consult cardiology for chest pain, consult hematology for further recommendations and evaluation, appreciate assistance. -Continue PRN antiemetics, Lidoderm patch for costochondritis -PRN [place], IV morphine as needed. -Continue IV fluids, antiemetics as needed. Monitor closely VS -Consult for GI place for second opinion, discussed with Dr Archibald who recommended Nuclear bleeding scan, IR for poss CTA abd with embolization if need. Nuclear medicine bleeding scan positive, IR on the case. Also patient to be transferred to intensive care after the procedures and slab lifting supervisor consulted. Sjogren's syndrome -May be contributory, especially if her Sjogren's syndrome symptoms represent a broader autoimmune condition -Consult hematology for further evaluation, appreciate assistance. Coronary artery disease History of coronary stent Chest pain radiating to the jaw, acute -Stat EKG with nonspecific ST and T wave abnormalities, similar to prior EKG, reviewed with Dr. Hunter - Troponin 0.04, continue trending, likely demand related to anemia. Discussed with Dr Hunter - Consult cardiology for further evaluation and recommendations, appreciate assistance. 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
[2018-05-19] MEDS ORDERED: fentaNYL Citrate Inj 100 MCG/2 ML Ampul ONE (15:41)
--- NOTE | 2018-05-19 15:53 | P.PNGI ---
Subjective Interval history: 11:35 patient laying supine in bed. Recently medicated for chest wall pain and denies chest or abdominal discomfort at this time. Patient states she was experiencing left upper quadrant chest wall pain earlier this a.m. Patient post EGD on 05/18/2018. <Gissell Dewitt - Last Filed: 05/19/18 15:57> Physical Exam Vital signs: Vital Signs 05/18/18 18:36 05/18/18 20:00 05/19/18 00:00 Temperature 98.0 F 97.8 F 98.1 F Pulse Rate 105 H 106 H 105 H Respiratory Rate 16 20 20 Blood Pressure 138/65 136/62 133/60 Pulse Oximetry 96 97 96 05/19/18 04:00 05/19/18 08:00 05/19/18 12:00 Temperature 97.8 F 97.8 F 98.2 F Pulse Rate 109 H 108 H 105 H Respiratory Rate 18 17 18 Blood Pressure 116/56 L 125/58 L 113/56 L Pulse Oximetry 95 93 L 95 05/19/18 15:23 Temperature 98.6 F Pulse Rate 108 H Respiratory Rate 16 Blood Pressure 134/59 L Pulse Oximetry Intake & Output 05/18/18 05/19/18 05/19/18 18:59 06:59 18:59 Intake Total 380 / 380 1413 / 1413 500 / 500 Output Total 2 / 2 100 / 100 Balance 378 / 378 1313 / 1313 500 / 500 Weight 71.4 kg Intake: IV 100 / 100 500 / 500 100 / 100 Protonix Inj 80 MG In NS Inj 100 / 100 100 / 100 100 / 100 100 ML @ 10 mls/hr IV.CONT Q10H [facility] Rx#:[id number] NS Inj 1,000 ML @ 100 mls/hr IV 400 / 400 .CONT .Q10H [facility] Rx#:[id number] Oral 463 / 463 Anesthesia Amount 200 / 200 Other 50 / 50 Rbc As-3 Leukoreduced Unit 50 / 50 [id number] Intake (Blood Product) Amt 80 / 80 400 / 400 400 / 400 Rbc As-3 Leukoreduced Unit 0 / 0 [id number] Rbc As-3 Leukoreduced Unit 0 / 0 400 / 400 [id number] Rbc As-3 Leukoreduced Unit 0 / 0 [id number] Rbc As-3 Leukoreduced Unit 400 / 400 [id number] Rbc As-3 Leukoreduced Unit 80 / 80 [id number] Output: Urine Urine/Stool Mix Emesis 100 / 100 Other: Other Intake Source Rbc As-3 Leukoreduced Unit Saline Solution [id number] # Voids 2 Date of Last Bowel Movement 05/18/18 05/19/18 05/19/18 # Incontinent Bowel Movements 1 - Constitutional no acute distress, cooperative Comments: Patient reports relief of chest wall pain and denies abdominal pain at this time. - Routine HEENT Exam Head: Present: normocephalic - Routine Respiratory Exam Present: CTA bilaterally. Absent: accessory muscle use - Routine Cardiovascular Exam Present: S1, S2, tachycardia Comments: Sinus tach at 104 - Routine Abdominal Exam Present: soft, normoactive bowel sounds. Absent: tenderness, guarding, firm - Routine Extremities Exam Present: pulses intact - Routine Skin Exam Present: dry, pallor, warm - Routine Neurological Exam Present: alert - Routine Psychiatric Exam Present: normal affect, cooperative <Dewitt,Gissell - Last Filed: 05/19/18 15:57> Vital signs: Vital Signs 05/19/18 15:23 05/19/18 16:00 05/19/18 16:21 Temperature 98.6 F 97.7 F Pulse Rate 108 H 103 H 109 H Respiratory Rate 16 19 16 Blood Pressure 134/59 L 125/58 L 139/75 Pulse Oximetry 05/19/18 17:07 05/19/18 17:09 05/19/18 18:00 Temperature 97.7 F Pulse Rate 115 H 114 H 104 H Respiratory Rate 20 12 Blood Pressure 125/58 L 125/58 L Pulse Oximetry 100 05/19/18 19:00 05/19/18 19:13 05/19/18 19:40 Temperature Pulse Rate 104 H 105 H 104 H Respiratory Rate 46 H 0 L 0 L Blood Pressure 157/69 H 167/70 H Pulse Oximetry 100 98 100 05/19/18 20:00 05/19/18 20:10 05/19/18 20:44 Temperature 98.5 F Pulse Rate 104 H Respiratory Rate 20 20 20 Blood Pressure 140/63 Pulse Oximetry 100 05/19/18 21:00 05/19/18 21:02 05/19/18 21:15 Temperature Pulse Rate 109 H 108 H 116 H Respiratory Rate 30 H 19 41 H Blood Pressure 140/103 H 139/64 131/72 Pulse Oximetry 99 98 92 L 05/19/18 22:00 05/19/18 22:15 05/19/18 22:26 Temperature Pulse Rate 106 H 106 H Respiratory Rate 10 L 10 L 15 Blood Pressure 129/56 L Pulse Oximetry 97 97 05/19/18 23:00 05/19/18 23:15 05/20/18 00:00 Temperature 98.0 F Pulse Rate 103 H 104 H 102 H Respiratory Rate 10 L 13 10 L Blood Pressure 133/61 129/61 Pulse Oximetry 98 97 97 05/20/18 00:15 05/20/18 04:00 05/20/18 04:32 Temperature 98.0 F Pulse Rate 102 H 103 H Respiratory Rate 10 L 15 16 Blood Pressure 129/61 129/61 Pulse Oximetry 98 98 05/20/18 06:00 05/20/18 06:47 05/20/18 07:00 Temperature Pulse Rate 106 H 108 H 107 H Respiratory Rate 11 L 12 10 L Blood Pressure 145/58 H Pulse Oximetry 99 100 100 05/20/18 07:47 05/20/18 08:00 05/20/18 08:02 Temperature 97.8 F Pulse Rate 113 H 107 H Respiratory Rate 23 17 Blood Pressure 151/66 H Pulse Oximetry 99 98 98 05/20/18 08:47 05/20/18 09:00 05/20/18 09:47 Temperature Pulse Rate 110 H 112 H 114 H Respiratory Rate 10 L 17 15 Blood Pressure 126/60 128/69 Pulse Oximetry 97 98 98 05/20/18 09:58 05/20/18 10:00 05/20/18 10:13 Temperature Pulse Rate 113 H 112 H 112 H Respiratory Rate 18 11 L 11 L Blood Pressure 139/63 123/56 L Pulse Oximetry 97 97 97 05/20/18 10:47 05/20/18 11:00 05/20/18 11:47 Temperature Pulse Rate 111 H 112 H 111 H Respiratory Rate 12 11 L 12 Blood Pressure 145/65 H 135/59 L Pulse Oximetry 96 98 98 05/20/18 12:00 Temperature 98.9 F Pulse Rate 111 H Respiratory Rate 12 Blood Pressure Pulse Oximetry 99 Intake & Output 05/19/18 05/20/18 05/20/18 18:59 06:59 18:59 Intake Total 1900 / 1900 500 / 500 200 / 200 Output Total 1501 / 1501 Balance 1900 / 1900 -1001 / -1001 200 / 200 Weight 81.1 kg Intake: IV 1100 / 1100 100 / 100 200 / 200 Protonix Inj 80 MG In NS Inj 100 / 100 100 / 100 100 ML @ 10 mls/hr IV.CONT Q10H [facility] Rx#:[id number] NS Inj 1,000 ML @ 100 mls/hr IV 1000 / 1000 .CONT .Q10H [facility] Rx#:[id number] Oral 200 / 200 Anesthesia Amount 200 / 200 Intake (Blood Product) Amt 800 / 800 Rbc As-3 Leukoreduced Unit 0 / 0 [id number] Rbc As-3 Leukoreduced Unit 400 / 400 [id number] Rbc As-3 Leukoreduced Unit 400 / 400 [id number] Output: Urine 1400 / 1400 Urine/Stool Mix 1 / Emesis 100 / 100 Other: # Voids 1 1 Date of Last Bowel Movement 05/18/18 05/20/18 05/20/18 # Bowel Movements 1 1 # Incontinent Bowel Movements 1 Weight On Admission 71.4 kg <Mariana Nick - Last Filed: 05/20/18 12:14> Results - Labs CBC & Chem 7: 05/19/18 11:58 05/19/18 11:04 Laboratory Results - last 24 hr 05/17/18 05/17/18 05/18/18 05:00 09:15 07:24 WBC RBC Hgb Hct MCV MCH MCHC RDW Plt Count MPV Prelim Diff (Auto) Neut % (Auto) Lymph % (Auto) Lane % (Auto) Eos % (Auto) Baso % (Auto) Neut # (Auto) Lymph # (Auto) Lane # (Auto) Eos # (Auto) Baso # (Auto) WBC Differential Diff Scan Differential Comment Platelet Estimate Platelet Morphology Sodium Potassium Chloride Carbon Dioxide Anion Gap BUN Creatinine Estimated GFR Random Glucose Calcium Calcium Adj for Albumin Iron TIBC % Saturation Troponin I Albumin Vitamin B12 Folate MTS Gel Crossmatch See Detail See Detail See Detail 05/18/18 05/19/18 05/19/18 22:18 04:30 07:00 WBC RBC Hgb 8.9 L D 7.4 L Hct 25.4 L 21.2 L MCV MCH MCHC RDW Plt Count MPV Prelim Diff (Auto) Neut % (Auto) Lymph % (Auto) Lane % (Auto) Eos % (Auto) Baso % (Auto) Neut # (Auto) Lymph # (Auto) Lane # (Auto) Eos # (Auto) Baso # (Auto) WBC Differential Diff Scan Differential Comment Platelet Estimate Platelet Morphology Sodium Potassium Chloride Carbon Dioxide Anion Gap BUN Creatinine Estimated GFR Random Glucose Calcium Calcium Adj for Albumin Iron TIBC % Saturation Troponin I Albumin Vitamin B12 Folate MTS Gel Crossmatch See Detail 05/19/18 05/19/18 05/19/18 10:39 11:04 11:58 WBC 14.2 H RBC 1.75 L Hgb 5.6 L* Hct 16.1 L* MCV 91.6 MCH 31.7 MCHC 34.6 RDW 14.9 Plt Count MPV 11.3 H Prelim Diff (Auto) Slide review pending Neut % (Auto) 87.9 H Lymph % (Auto) 6.[address] % (Auto) 5.1 Eos % (Auto) 0.1 Baso % (Auto) 0.2 Neut # (Auto) 12.4 H Lymph # (Auto) 1.0 Lane # (Auto) 0.7 Eos # (Auto) 0.0 Baso # (Auto) 0.0 WBC Differential . Diff Scan Auto diff confirmed Differential Comment . Platelet Estimate Low L Platelet Morphology Enlarged H Sodium 144 Potassium 4.2 Chloride 114 H Carbon Dioxide 24.9 Anion Gap 5 BUN 28 H Creatinine 0.84 Estimated GFR 65 L Random Glucose 130 H Calcium 6.8 L* Calcium Adj for Albumin 8.5 Iron 32 L TIBC 192 L % Saturation 16.7 L Troponin I 0.04 Albumin 1.9 L Vitamin B12 213 Folate Greater than 20.0 H MTS Gel Crossmatch <Gissell Dewitt - Last Filed: 05/19/18 15:57> - Labs CBC & Chem 7: 05/20/18 10:45 05/20/18 05:17 Laboratory Results - last 24 hr 05/17/18 05/17/18 05/18/18 05:00 09:15 07:24 WBC RBC Hgb Hct MCV MCH MCHC RDW Plt Count MPV Prelim Diff (Auto) Neut % (Auto) Lymph % (Auto) Lane % (Auto) Eos % (Auto) Baso % (Auto) Neut # (Auto) Lymph # (Auto) Lane # (Auto) Eos # (Auto) Baso # (Auto) WBC Differential Diff Scan Seg Neuts % (Manual) Band Neuts % (Manual) Lymphocytes % (Manual) Monocytes % (Manual) Abs Neuts (Manual) Nucleated RBCs/100 WBC Differential Comment Platelet Estimate Platelet Morphology Acanthocytes (Spur) PT INR APTT Fibrinogen Puncture Site Patient Temperature O2 Saturation ABG pH ABG pCO2 ABG pO2 ABG HCO3 ABG O2 Content ABG Base Excess ABG Methemoglobin Hemoglobin Carboxyhemoglobin Inspired O2 Critical Value Sodium Potassium Chloride Carbon Dioxide Anion Gap BUN Creatinine Estimated GFR Random Glucose Calcium Calcium Adj for Albumin Phosphorus Magnesium Iron TIBC % Saturation Total Bilirubin AST ALT Alkaline Phosphatase Total Protein Albumin Vitamin B12 Folate Blood Type MTS Gel Crossmatch See Detail See Detail See Detail 05/19/18 05/19/18 05/19/18 07:00 11:04 11:58 WBC 14.2 H RBC 1.75 L Hgb 5.6 L* Hct 16.1 L* MCV 91.6 MCH 31.7 MCHC 34.6 RDW 14.9 Plt Count MPV 11.3 H Prelim Diff (Auto) Slide review pending Neut % (Auto) 87.9 H Lymph % (Auto) 6.[address] % (Auto) 5.1 Eos % (Auto) 0.1 Baso % (Auto) 0.2 Neut # (Auto) 12.4 H Lymph # (Auto) 1.0 Lane # (Auto) 0.7 Eos # (Auto) 0.0 Baso # (Auto) 0.0 WBC Differential . Diff Scan Auto diff confirmed Seg Neuts % (Manual) Band Neuts % (Manual) Lymphocytes % (Manual) Monocytes % (Manual) Abs Neuts (Manual) Nucleated RBCs/100 WBC Differential Comment . Platelet Estimate Low L Platelet Morphology Enlarged H Acanthocytes (Spur) PT INR APTT Fibrinogen Puncture Site Patient Temperature O2 Saturation ABG pH ABG pCO2 ABG pO2 ABG HCO3 ABG O2 Content ABG Base Excess ABG Methemoglobin Hemoglobin Carboxyhemoglobin Inspired O2 Critical Value Sodium 144 Potassium 4.2 Chloride 114 H Carbon Dioxide 24.9 Anion Gap 5 BUN 28 H Creatinine 0.84 Estimated GFR 65 L Random Glucose 130 H Calcium 6.8 L* Calcium Adj for Albumin 8.5 Phosphorus Magnesium Iron 32 L TIBC 192 L % Saturation 16.7 L Total Bilirubin AST ALT Alkaline Phosphatase Total Protein Albumin 1.9 L Vitamin B12 213 Folate Greater than 20.0 H Blood Type MTS Gel Crossmatch See Detail 05/19/18 05/19/18 05/19/18 16:45 16:45 16:45 WBC 12.6 H RBC 2.56 L Hgb 7.9 L D Hct 22.4 L MCV 87.4 D MCH 31.1 MCHC 35.6 RDW 15.8 Plt Count MPV 9.5 Prelim Diff (Auto) Slide review pending Neut % (Auto) 83.6 H Lymph % (Auto) 8.[address] % (Auto) 7.9 Eos % (Auto) 0.3 Baso % (Auto) 0.2 Neut # (Auto) 10.5 H Lymph # (Auto) 1.0 Lane # (Auto) 1.0 H Eos # (Auto) 0.0 Baso # (Auto) 0.0 WBC Differential Manual diff final Diff Scan Seg Neuts % (Manual) 88 H Band Neuts % (Manual) 5 Lymphocytes % (Manual) 6 L Monocytes % (Manual) 1 Abs Neuts (Manual) 11.7 H Nucleated RBCs/100 WBC 1 H Differential Comment . Platelet Estimate Low L Platelet Morphology Enlarged H Acanthocytes (Spur) Occ H PT 11.1 INR 1.1 APTT 33.6 H Fibrinogen Puncture Site Patient Temperature O2 Saturation ABG pH ABG pCO2 ABG pO2 ABG HCO3 ABG O2 Content ABG Base Excess ABG Methemoglobin Hemoglobin Carboxyhemoglobin Inspired O2 Critical Value Sodium Potassium Chloride Carbon Dioxide Anion Gap BUN Creatinine Estimated GFR Random Glucose Calcium Calcium Adj for Albumin Phosphorus Magnesium Iron TIBC % Saturation Total Bilirubin AST ALT Alkaline Phosphatase Total Protein Albumin Vitamin B12 Folate Blood Type MTS Gel Crossmatch 05/19/18 05/20/18 05/20/18 17:02 05:17 05:17 WBC 19.7 H D RBC 2.48 L Hgb 7.4 L Hct 21.9 L MCV 88.2 MCH 30.0 MCHC 34.0 RDW 15.4 Plt Count 29 L MPV 11.1 H Prelim Diff (Auto) Slide review pending Neut % (Auto) 95.2 H Lymph % (Auto) 2.[address] % (Auto) 1.7 Eos % (Auto) 0.0 Baso % (Auto) 0.2 Neut # (Auto) 18.8 H Lymph # (Auto) 0.[address] # (Auto) 0.3 Eos # (Auto) 0.0 Baso # (Auto) 0.0 WBC Differential . Diff Scan Auto diff confirmed Seg Neuts % (Manual) Band Neuts % (Manual) Lymphocytes % (Manual) Monocytes % (Manual) Abs Neuts (Manual) Nucleated RBCs/100 WBC Differential Comment . Platelet Estimate Low L Platelet Morphology Enlarged H Acanthocytes (Spur) PT INR APTT Fibrinogen Puncture Site Unknown Patient Temperature 98.6 O2 Saturation 92 ABG pH 7.32 L ABG pCO2 50 H ABG pO2 74 ABG HCO3 25 ABG O2 Content 10.5 L ABG Base Excess -0.8 ABG Methemoglobin 0.6 Hemoglobin 8.0 L Carboxyhemoglobin 1.5 Inspired O2 21 Critical Value No Sodium 143 Potassium 4.5 Chloride 114 H Carbon Dioxide 24.1 Anion Gap 5 BUN 23 H Creatinine 0.76 Estimated GFR 73 L Random Glucose 164 H Calcium 6.8 L* Calcium Adj for Albumin 8.5 Phosphorus 2.8 Magnesium 1.8 Iron TIBC % Saturation Total Bilirubin 0.2 AST 18 ALT 14 Alkaline Phosphatase 45 Total Protein 4.0 L Albumin 1.8 L Vitamin B12 Folate Blood Type MTS Gel Crossmatch 05/20/18 05/20/18 05/20/18 05:17 10:45 10:55 WBC RBC Hgb 6.1 L* Hct 18.8 L* MCV MCH MCHC RDW Plt Count MPV Prelim Diff (Auto) Neut % (Auto) Lymph % (Auto) Lane % (Auto) Eos % (Auto) Baso % (Auto) Neut # (Auto) Lymph # (Auto) Lane # (Auto) Eos # (Auto) Baso # (Auto) WBC Differential Diff Scan Seg Neuts % (Manual) Band Neuts % (Manual) Lymphocytes % (Manual) Monocytes % (Manual) Abs Neuts (Manual) Nucleated RBCs/100 WBC Differential Comment Platelet Estimate Platelet Morphology Acanthocytes (Spur) PT 10.6 INR 1.0 APTT 26.7 D Fibrinogen 285 Puncture Site Patient Temperature O2 Saturation ABG pH ABG pCO2 ABG pO2 ABG HCO3 ABG O2 Content ABG Base Excess ABG Methemoglobin Hemoglobin Carboxyhemoglobin Inspired O2 Critical Value Sodium Potassium Chloride Carbon Dioxide Anion Gap BUN Creatinine Estimated GFR Random Glucose Calcium Calcium Adj for Albumin Phosphorus Magnesium Iron TIBC % Saturation Total Bilirubin AST ALT Alkaline Phosphatase Total Protein Albumin Vitamin B12 Folate Blood Type O Positive MTS Gel Crossmatch See Detail 05/20/18 11:34 WBC RBC Hgb Hct MCV MCH MCHC RDW Plt Count MPV Prelim Diff (Auto) Neut % (Auto) Lymph % (Auto) Lane % (Auto) Eos % (Auto) Baso % (Auto) Neut # (Auto) Lymph # (Auto) Lane # (Auto) Eos # (Auto) Baso # (Auto) WBC Differential Diff Scan Seg Neuts % (Manual) Band Neuts % (Manual) Lymphocytes % (Manual) Monocytes % (Manual) Abs Neuts (Manual) Nucleated RBCs/100 WBC Differential Comment Platelet Estimate Platelet Morphology Acanthocytes (Spur) PT INR APTT Fibrinogen Puncture Site Patient Temperature O2 Saturation ABG pH ABG pCO2 ABG pO2 ABG HCO3 ABG O2 Content ABG Base Excess ABG Methemoglobin Hemoglobin Carboxyhemoglobin Inspired O2 Critical Value Sodium Potassium Chloride Carbon Dioxide Anion Gap BUN Creatinine Estimated GFR Random Glucose Calcium Calcium Adj for Albumin Phosphorus Magnesium Iron TIBC % Saturation Total Bilirubin AST ALT Alkaline Phosphatase Total Protein Albumin Vitamin B12 Folate Blood Type MTS Gel Crossmatch See Detail - Imaging Impressions GI Bleed Scan Nuclear Medicine 05/19/18 00:00 CONCLUSION: 1. 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 Patient was emergently brought to the interventional radiology department from the nuclear medicine department for angiography and intervention. Mesenteric Arteriogram 05/19/18 14:37 CONCLUSION: 1. 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 2. 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 <Mariana Nick - Last Filed: 05/20/18 12:14> Assessment and Plan (1) GI bleed Status: Acute Code(s): K92.2 - Gastrointestinal hemorrhage, unspecified - Plan This patient is an 82-year-old female who presented to the emergency room at [facility] with complaint of nausea vomiting and abdominal pain. Past medical history significant for right lower lobe lung mass and Sjogren's syndrome. Surgical history significant for cardiac stent and lobectomy of lung. Upon consultation, patient reports onset of nausea with projectile vomiting since 2 AM this morning. States that this was precipitated by 24 hours of experiencing decreased appetite with nausea and generalized weakness. Patient states during the 2 episodes of projectile vomiting at home she also had formed black tarry stools. Last colonoscopy done in February 2018 revealed diverticulosis in the sigmoid colon with multiple polyps, internal and external hemorrhoids. She reports emesis was clear and denies hematemesis. Patient endorses taking aspirin 81 mg p.o. daily and denies any use of NSAIDs. She reports history of gastritis noted on EGD done in February 2018. History of GERD for which patient takes Protonix 40 mg p.o. daily. Patient denies any known family history of gastrointestinal disorders and denies any use of tobacco or alcohol products. GI bleed -Onset 2 AM this morning, nausea with projectile vomiting and black tarry stools. -03/11/2018 EGD-- 1.Gastritis antrum-biopsy duodenum normal-biopsy esophagitis grade B-biopsy 2.Retroflexed views revealed a hiatal hernia -03/11/2018 colonoscopy-- 1. Diverticulosis sigmoid,descending polyp sessile hepatic flexure-8 mm-hot snare polypectomy polyp sessile 8 mm cecum-hot snare polypectomy with complete removal very tortuous and floppy colon cecum seen , not able to enter cap due to looping, but seen well possible adhesions 2. There was no evidence of random biopsies from ascending and descending colon to r/o microscopic colitis 3. Retroflexed views revealed internal hemorrhoids 4. Retroflexed views revealed small internal hemorrhoids 5. Revealed external hemorrhoids -05/17/2018 hemoglobin 7.6 hematocrit 22.5 GI bleed Patient drowsy, reports recently medicated for left-sided chest wall pain. Patient denies abdominal pain upon examination. Reporting intermittent nausea for which she states Zofran is effective. Hemoglobin 7.4 hematocrit 21.2. I discussed plan of care with patient and Jeniffer Vergara. No active for reported bleeding noted. 05/18/2018 EGD revealed the following findings-- 1. The esophagus was otherwise normal 2. There was mild gastritis in the entire examined stomach; biopsy was performed 3. Large amount of fresh blood covering the stomach, the entire mucosa was inspected after suctioning, no abnormalities or source of bleeding identified 4. Normal duodenal mucosa 5. Retroflexed views revealed Large amount of fresh blood 1430 Hemoglobin 5.6 hematocrit 16.1 Bleeding scan-results pending Stat consult for IR to evaluate upper GI tract via angiography Plan -N.p.o. -Nuclear medicine bleeding scan for further evaluation -Monitor hemoglobin and hematocrit closely -Antiemetics and out of analgesics as per attending -Avoid anticoagulants and NSAIDs -Monitor for bleeding -Continue PPI -IV hydration -Supportive care -Further recommendations to follow This patient has been seen by myself and Dr. Nick and this note is written on his behalf - Attending Attestation Dr. nick <Gissell Dewitt - Last Filed: 05/19/18 15:57> (1) GI bleed Status: Acute Code(s): K92.2 - Gastrointestinal hemorrhage, unspecified - Attending Attestation Agree with plan as above, further bleeding noted, last EGD showed blood in the stomach and duodenum (blood reflux from the duodenum or [place]ulaf[place]), will proceed with bleeding scan for now. blood transfusion as needed . <Mariana Nick - Last Filed: 05/20/18 12:14>
--- NOTE | 2018-05-19 16:08 | ECG ---
Date Performed: 05/19/2018 Time Performed: 10:15:07 PTAGE: 82 years EKG: SINUS TACHYCARDIA WITH OCCASIONAL VENTRICULAR PREMATURE COMPLEXES WITH OCCASIONAL SUPRAVENT RICULAR PREMATURE COMPLEXES NONSPECIFIC ST & T-WAVE ABNORMALITY ABNORMAL RHYTHM ECG PREVIOUS TRACING : 05/17/2018 04.48 Since the previous tracing, no significant change noted DOCTOR: Rukhsana Busby Interpretating Date/Time 05/19/2018 16:04:38
--- NOTE | 2018-05-19 16:33 | P.CONCC ---
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 originally admitted to the floor. hgb continued to downtrend despite transfusions. today taken for EGD which found blood in the stomach and clot, but no active bleeding. despite this, hgb still did not improve. taken for bleeding scan which was very +. discussed case with Dr. Garcia/Dr. Garland in IR. review of admission CT abd/pelvis demonstrates possible bleeding at duodenal bulb concerning for ulceration. Taken emergently to IR for embolization which appears to be successful. I evaluated the patient upon arrival to the ICU post-IR procedure. she is stable. complaining of hip pain. hgb has improved appropriately. she denies other complaints. she asked me not to look at her groin sites because "my hips hurt and I am tired." Recent evaluation by bedside RN is without hematoma, and this evaluation is deferred at patient's request (bedside RN to continue to monitor for signs of hematoma). remainder of ROS negative. Review of Systems All other systems reviewed negative except as stated in HPI PMFSH - History History Provided By: Patient - Medical History Medical History: Medical History (Last Updated 05/19/18 @ 21:36 by Benjie Dejesus MD) Amyloidosis Right lower lobe lung mass Sjoegren syndrome - Surgical History Surgical History: Surgical History (Last Reviewed 05/19/18 @ 21:35 by Benjie Dejesus MD) History of heart artery stent Status post lobectomy of lung - Family History Family History: Family History (Last Reviewed 05/19/18 @ 21:35 by Benjie Dejesus MD) Other Osteoarthritis - Social History I have reviewed the patient's Social History: Yes - Tobacco History Second Hand Smoke Exposure: No Tobacco Use In Past 30 Days: No Smoking Status: Former smoker Tobacco Type: Cigarettes - Alcohol History How Often Do You Have a Drink Containing Alcohol: Never - Substance Use History Substance History: No History of Abuse - Travel History Recent Travel in the [place] Within the Last 8 Weeks: No Recent Travel Out of the Country Within the Last 8 Weeks: No - Immunization History Tetanus Immunization: <5 Years Hx Influenza Vaccine This Season: No Medications and Allergies Active Medications: Active Medications Acetaminophen (Tylenol) 650 mg PO Q4H PRN PRN Reason: Temp > 100.4 Hydrocodone Bitart/Acetaminophen ([place] 5/325) 1 tab PO Q6H PRN PRN Reason: Pain 2-5 Last Admin: 05/19/18 13:15 Dose: 1 tab Hydrocodone Bitart/Acetaminophen ([place] 10/325) 1 tab PO Q6H PRN PRN Reason: Pain 6-10 Al Hydroxide/Mg Hydroxide (Milk Of Magnesia Liq) 30 ml PO Q12H PRN PRN Reason: Mild Constipation Bisacodyl (Dulcolax Supp) 10 mg RECTAL DAILY PRN PRN Reason: SEVERE CONSITIPATION Sodium Chloride (Ns Inj) 1,000 mls @ 100 mls/hr IV.CONT .Q10H VALERY Last Admin: 05/19/18 06:43 Dose: 100 mls/hr Pantoprazole Sodium 80 mg/ (Sodium Chloride) 100 mls @ 10 mls/hr IV.CONT Q10H VALERY Last Infusion: 05/19/18 12:56 Dose: Infused Sodium Chloride (Ns Inj) 500 mls @ 30 mls/hr IV.SIG .Q10H VALERY Last Admin: 05/18/18 07:00 Dose: Not Given Sodium Chloride (Ns Inj) 250 mls @ 15 mls/hr IV.SIG ONCE VALERY Stop: 05/20/18 03:39 Last Admin: 05/19/18 12:56 Dose: Not Given Sodium Chloride (Ns Inj) 250 mls @ 15 mls/hr IV.SIG ONCE VALERY Stop: 05/20/18 04:39 Last Admin: 05/19/18 12:56 Dose: Not Given Lactulose (Lactulose Liq) 30 ml PO DAILY PRN PRN Reason: SEVERE CONSITIPATION Lidocaine HCl (Lidoderm 5% Patch.12 Hr) 2 patch T-DERMAL DAILY VALERY Last Admin: 05/19/18 09:50 Dose: 2 patch Morphine Sulfate (Morphine Inj) 2 mg IV.PUSH Q4H PRN PRN Reason: PAIN 6-10 Last Admin: 05/19/18 10:32 Dose: 2 mg Ondansetron HCl (Zofran Inj) 4 mg IV.PUSH Q6H PRN PRN Reason: NAUSEA OR VOMITING Last Admin: 05/19/18 13:17 Dose: 4 mg Patch Removal (Remove Old Patch) 1 each T-DERMAL BID [facility] Prochlorperazine Edisylate (Compazine Inj) 10 mg IV.PUSH Q6H PRN PRN Reason: NAUSEA Last Admin: 05/19/18 00:08 Dose: 10 mg Senna/Docusate Sodium (Jessie-Colace) 1 tab PO BID VALERY Last Admin: 05/19/18 10:39 Dose: Not Given Sennosides (Senokot) 17.2 mg PO Q12H PRN PRN Reason: Moderate Constipation Allergies Allergy/AdvReac Type Severity Reaction Status Date / Time Sulfa (Sulfonamide Allergy Severe Anaphylaxis Verified 05/17/18 03:34 Antibiotics) amoxicillin Allergy Mild nausea Verified 05/17/18 03:34 codeine Allergy Mild constipatio Verified 05/17/18 03:34 n Home Medications Medication Instructions Recorded Confirmed Type amlodipine 5 mg PO DAILY 03/17/18 05/17/18 History aspirin [Aspirin Low Dose] 1 tab PO DAILY 03/17/18 05/17/18 History finasteride 1 mg PO DAILY 03/17/18 05/17/18 History isosorbide mononitrate 30 mg PO DAILY 03/17/18 05/17/18 History pantoprazole 20 mg PO BID 03/18/18 05/17/18 History hydrocodone-acetaminophen 1 tab PO Q4-6H PRN 05/17/18 05/17/18 History lisinopril 10 mg PO DAILY 05/17/18 05/17/18 History Physical Exam Vital signs: Vital Signs 05/18/18 18:36 05/18/18 20:00 05/19/18 00:00 Temperature 36.7 C 36.6 C 36.7 C Pulse Rate 105 H 106 H 105 H Respiratory Rate 16 20 20 Blood Pressure 138/65 136/62 133/60 Pulse Oximetry 96 97 96 05/19/18 04:00 05/19/18 08:00 05/19/18 12:00 Temperature 36.6 C 36.6 C 36.8 C Pulse Rate 109 H 108 H 105 H Respiratory Rate 18 17 18 Blood Pressure 116/56 L 125/58 L 113/56 L Pulse Oximetry 95 93 L 95 05/19/18 15:23 05/19/18 16:21 Temperature 37.0 C Pulse Rate 108 H 109 H Respiratory Rate 16 16 Blood Pressure 134/59 L 139/75 Pulse Oximetry Intake & Output 05/18/18 05/19/18 05/19/18 18:59 06:59 18:59 Intake Total 380 / 380 1413 / 1413 900 / 900 Output Total 2 / 2 100 / 100 Balance 378 / 378 1313 / 1313 900 / 900 Weight 71.4 kg Intake: IV 100 / 100 500 / 500 100 / 100 Protonix Inj 80 MG In NS Inj 100 / 100 100 / 100 100 / 100 100 ML @ 10 mls/hr IV.CONT Q10H [facility] Rx#:[id number] NS Inj 1,000 ML @ 100 mls/hr IV 400 / 400 .CONT .Q10H [facility] Rx#:[id number] Oral 463 / 463 Anesthesia Amount 200 / 200 Other 50 / 50 Rbc As-3 Leukoreduced Unit 50 / 50 [id number] Intake (Blood Product) Amt 80 / 80 400 / 400 800 / 800 Rbc As-3 Leukoreduced Unit 0 / 0 [id number] Rbc As-3 Leukoreduced Unit 0 / 0 400 / 400 [id number] Rbc As-3 Leukoreduced Unit 0 / 0 [id number] Rbc As-3 Leukoreduced Unit 400 / 400 [id number] Rbc As-3 Leukoreduced Unit 400 / 400 [id number] Rbc As-3 Leukoreduced Unit 80 / 80 [id number] Output: Urine 1 / 1 Urine/Stool Mix 1 / 1 Emesis 100 / 100 Other: Other Intake Source Rbc As-3 Leukoreduced Unit Saline Solution [id number] # Voids 2 2 Date of Last Bowel Movement 05/18/18 05/19/18 05/19/18 # Bowel Movements 1 # Incontinent Bowel Movements 1 Narrative: GENERAL: elderly female, lying in bed, resting comfortably. HEENT: Normocephalic. Atraumatic. Pupils equal, round, reactive, conjugate. Mucous membranes are moist NECK: Trachea is midline. There is no JVD. CHEST: equal chest rise. nc o2. unlabored. CARDIOVASCULAR: normal rate, regular rhythm. sinus. ABDOMEN: Soft, nontender, nondistended. No guarding. MUSCULOSKELETAL: Pulses 2+. No peripheral edema. NEUROLOGICAL: RASS -1. follows commands. no focal deficits. Assessment and Plan - Assessment and Plan Plan: Assessment: 82yF with amyloidosis and active GI bleed, likely secondary to duodenal source. Now s/p emergent IA embolization. Agree with admitting to ICU. long discussion with daughter: will trend H&H q6h and transfuse to keep hgb > 7. She has a cardiac history, and has symptomatic chest pain when hgb < 6, which is likely the source of her small troponin leak this morning. no current symptoms of acute coronary syndrome, and certainly we would not anticoagulate her given her severe GI bleeding. My recommendation given the severity of her bleed is now that we have attempted to control her bleed from an intra-arterial standpoint would be to repeat EGD in 24-48h to evaluate for the culprit lesion. In discussions with the radiology department, this may be in the 4th portion of the duodenum near the ligament of treitz and thus she may be a better candidate for push enteroscopy to more fully investigate the possible lesion. Active upper GI bleed severe acute anemia secondary to blood loss requiring transfusion possible duodenal ulcer transient chest pain - resolved, likely secondary to demand ischemia from severe anemia Plan: - admit to ICU - serially check hgb - transfuse to keep hgb > 7 - would recommend repeating EGD in 24-48h to eval culprit lesion, but will allow GI to guide therapy - chest pain likely secondary to demand ischemia and has resolved. keep hgb > 7. will not keep trending troponins. cannot anticoagulate. unlikely to be ACS. - check coags - check abg - watch groin site closely - appreciate GI involvement - am cbc, bmp, mg, phos - ICU electrolyte protocol - GI to guide diet - SCDs Critical care medicine will continue to follow.
--- NOTE | 2018-05-19 16:59 | NM ---
EXAM DATE: 05/19/2018 3:21 PM EST AGE/SEX: 82 years / Female INDICATIONS: Blood in stool. CLINICAL DATA: This is the patient's initial encounter. Patient reports that signs and symptoms have been present for 1 day and indicates a pain score of 2/10. MEDICAL/SURGICAL HISTORY: . Mass in right lobe of lung and sjorgren syndrome. Coronary artery stent. Right lobectomy. COMPARISON: [facility] – [place], [place] ABDOMEN & PELVIS W CONTRAST, 05/17/2018. . TECHNIQUE: Following the modified in vitro labeling of autologous red cells, dynamic continuous image s were acquired for two hours. ?? DOSE: 21 mCi Tc 99m Ultratag Labeled Red Blood Cells IV IMAGING TIME: 1 hr FINDINGS: Biodistribution: There is a very good labeling of red cells without significant uptake in the gastri c wall. There is good delineation of the blood pool of the spleen and abdominal vessels. Bleeding: There is prompt accumulation of activity in the upper abdomen just left of midline. 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 There is progressive bleed ing through the skin with activity noted in multiple loops of small bowel. CONCLUSION: 1. Findings consistent with active hemorrhage from the distal duodenum, likely at the site of patien t's duodenal diverticulum. Patient was emergently brought to the interventional radiology department from the nuclear medicine [facility] for angiography and intervention. Electronically signed by: Clemente Rodriguez MD 05/19/2018 4:58 PM EST
--- NOTE | 2018-05-19 17:00 | P.RAD ---
Post Procedure Progress Note - Procedure Information Procedure Date: 05/19/18 Supervising Radiologist: Clemente Rodriguez MD Estimated blood loss (mL): 5 Anesthesia: Conscious Sedation - Plan of Activity Patient to Unit: Critical Care Patient Condition: Good See PACS Report for procedural detail/treatment.
[2018-05-19 17:13] LABS: ABG Base Excess -0.8 mmol/L (-2-2); ABG PCO2 50 mmHg (38-42); ABG PO2 74 mmHg (61-120)
[2018-05-19 17:20] LABS: Baso % (Auto) 0.2 % (0.0-2.0); Eos % (Auto) 0.3 % (0.0-4.0); Hematocrit 22.4 % (35.0-46.0); Hemoglobin 7.9 gm/dL (11.6-15.3); Mean Corpuscular HGB Conc 35.6 % (32.0-36.0); Mean Corpuscular Hemoglobin 31.1 pg (27.0-34.0); Mean Corpuscular Volume 87.4 fL (80.0-100.0); Mean Platelet Volume 9.5 fL (7.0-11.0); Mono % (Auto) 7.9 % (0.0-8.0); Neut # (Auto) 10.5 th/mm3 (1.8-7.7); Neut % (Auto) 83.6 % (16.0-70.0); Red Blood Count 2.56 mil/mm3 (4.00-5.30); Red Cell Distribution Width 15.8 % (11.6-17.2); White Blood Count 12.6 th/mm3 (4.0-11.0)
[2018-05-19 17:43] LABS: INR 1.1 Ratio; Prothrombin Time 11.1 sec (9.8-11.6)
[2018-05-19 17:49] LABS: Lymphocytes 6 % (9-44); Monocytes 1 % (0-8); Tallied Nucleated RBC 1 (0-0)
[2018-05-19 17:52] LABS: Acanthocytes Occ
[2018-05-19] MEDS ORDERED: Gelatin 12 MM/7 MM Topical Foam I-ARTERIAL ONE (18:11)
[2018-05-19] MEDS: HYDROmorphone PF Inj 2 MG/ML Vial IV.PUSH PRN (21:56)
[2018-05-19] MEDS: MethylPREDNISolone Sod Succinate Inj 125 MG/2 ML Vial IV.PUSH SCH (22:59)
--- NOTE | 2018-05-19 23:10 | MB ---
cc: Danny Alford MD DATE: 05/19/2018 REASON FOR CONSULTATION: 82-year-old female with previous history of lung cancer, multifocal amyloidosis, lymphoplasmacytic disorder and now gastrointestinal bleeding. PATIENT PROFILE: This patient is an 82-year-old female who has an unusual history. On 03/25/2016, she had a right posterior lateral thoracotomy and right lower lobectomy and lymph node dissection for a lung nodule. She was found to have multifocal amyloidosis. She went to the [facility] for a second opinion and the pathology showed a focus of invasive well-differentiated adenocarcinoma, 0.7 cm. She also had nodular amyloidosis and a tumor mass measuring 1.2 cm, consistent with a lymphoma, plasmacytic marginal zone lymphoma. The amyloidosis was felt to be localized to the lung. It was recommended that she have CT scans of the thorax every 6 months. She had no evidence of lymphoma elsewhere and no reoccurrence of her lung cancer. The last time that I saw her on 04/04/2017, she presented with severe abdominal pain. The etiology was never determined and she was being seen by a sweetbread trimmer, Dr. Siegel. Her immediate problem dates back to 05/16/2018, when she developed abdominal pain, nausea and black stools. She was found to have a gastrointestinal bleed with a falling hemoglobin. She underwent multiple studies. She had a CAT scan of the abdomen and pelvis on 05/17/2013 showing no acute findings. There are stable small nodules, left lung base. She had a GI nuclear scan on 05/19/2018 showing findings consistent with active hemorrhage from the distal duodenum felt to be likely due to a duodenal diverticulum. The patient was emergently brought to the Interventional Radiology department and underwent an embolization this afternoon. She had an upper endoscopy on 05/18/2018 which reads "there was mild gastritis in the entire examined stomach. Biopsy was performed. There is a large amount of fresh blood covering the stomach. The entire mucosa was inspected after suctioning and there were no abnormalities or source of bleeding. The duodenal mucosa appeared normal". She had had a previous colonoscopy on 03/11/2018 showing diverticulosis and several polyps, which were removed. The pathology report from the biopsy of the gastric antrum dated 05/18/2013 unfortunately contains no tissue. Her hemoglobin dropped to as low as 5.6. A platelet count is listed at 345,000 on 04/17/2017. On 05/17/2018, the platelet count reads- accurate platelet count not possible due to occasional enlarged platelets. Platelet count appears 20-30,000 by smear examination. PT and PTT are normal. The last CBC and platelet count I have is dated 05/19/2018 and reads hemoglobin 7.9, white count 12,000, platelet count reads slight estimate is higher than the automated value due to the presence of enlarged platelets smear estimation of platelets are 20-30,000. Differential shows 88% neutrophils, absolute neutrophil count 11,700. PAST SURGICAL HISTORY: 1. On 03/25/2016, right posterior lateral muscle-sparing thoracotomy as well as right lower lobectomy. This revealed multifocal amyloidosis exhibiting nodular vascular and interstitial features, chronic lymphoplasma cellular bronchiolitis, and also a small focus of invasive well-differentiated adenocarcinoma. 2. Breast biopsy 2013, benign. 3. Appendectomy. 4. Hysterectomy with one ovary remaining. PAST MEDICAL HISTORY: 1. Amyloidosis involving the lung as described above. 2. Microscopic lung cancer in lung specimen as described above. 3. 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 4. Coronary stent. MEDICATIONS: Presently: 1. Morphine. 2. Protonix. MEDICATIONS AT HOME: 1. Amlodipine. 2. Aspirin. 3. Finasteride. 4. Isosorbide. 5. Protonix. 6. Lisinopril. 7. Hydrocodone/acetaminophen. ALLERGIES: SULFA, AMOXICILLIN, CODEINE. REVIEW OF SYSTEMS: Not possible to obtain. The patient is status post embolization and has received Dilaudid and is somnolent. PHYSICAL EXAMINATION: GENERAL: Reveals a somnolent female. She appears clinically stable. VITAL SIGNS: Blood pressure is 110, respiratory rate is 18, pulse is 90, O2 saturation 97%. HEENT: Head is normocephalic. Sclerae and conjunctivae are normal. NECK: No adenopathy. HEART: Regular rate and rhythm. LUNGS: Clear, without rales, wheezes, or rhonchi. ABDOMEN: Soft, minimal tenderness. EXTREMITIES: Trace edema. MUSCULOSKELETAL: No bone pain. NEUROLOGIC: No focal weakness. ASSESSMENT: The patient presents with severe abdominal pain, GI bleeding and thrombocytopenia with what they are describing as abnormal platelets. Her renal function is normal. Total bilirubin 0.2. At this point, it is unclear as to exactly what is bleeding. The upper endoscopy is listed as showing a normal duodenum with blood in the stomach. The bleeding scan suggests bleeding from the duodenum. Her peripheral smear indicates that she has severe thrombocytopenia suggesting a consumptive process with large platelets. Her PT and PTT does not suggest DIC. PLAN: 1. Would recommend continued support with blood products. 2. I will look at the peripheral smear and begin steroids, with the assumption being that this is some type of autoimmune thrombocytopenia. She may need repeat upper endoscopy. She has had unusual problems, which have included a lymphoplasmacytic process in the lung as well as amyloidosis suggesting the possibility of an autoimmune process. I do not see any medications, which would be expected to cause the thrombocytopenia. The abdominal pain that she had is not explained by the thrombocytopenia and therefore, there is more going on than just simply bleeding and thrombocytopenia. She also has a history of amyloidosis and whether she has involvement of amyloid in the stomach is not clear as we do not have the biopsy specimen. She may require repeat upper endoscopy when stable. I need to review her peripheral smear. 3:The peripheral smear was reviewed. Red cell morphology is normal. There is polychromasia. White cells are normal. Platelets are decreased. There are 1- 2 platelets per high-powered field and they are enlarged. This suggests a platelet count of approximately 20,000. There are no microangiopathic changes. 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 I see nothing to suggest TTP. There is no evidence of DIC. The patient will be treated with IV Solu-Medrol 60 mg every 12 hours. The platelet count will be followed. Usually people do not bleed with platelet counts of 20,000 and therefore it is important to continue to look for the source of bleeding rather than assume it was simply due to the low platelet count. The platelet count has made the bleeding worse but it is not necessarily the cause of the bleeding. She may require repeat upper endoscopy with biopsy of the stomach. I would be interested to see if she has amyloid in the stomach. MD BENJAMIN Christopher/shay , 10:20 PM , 10:40 PM BINH
[2018-05-20] MEDS: HYDROmorphone PF Inj 2 MG/ML Vial IV.PUSH PRN ×3 (04:02→16:00)
[2018-05-20] MEDS: Sod Chloride 0.9% Inj 1,000 ML IV.CONT SCH ×2 (04:04→14:18)
[2018-05-20 05:44] LABS: Baso % (Auto) 0.2 % (0.0-2.0); Hematocrit 21.9 % (35.0-46.0); Hemoglobin 7.4 gm/dL (11.6-15.3); Lymph # (Auto) 0.6 th/mm3 (1.0-4.8); Lymph % (Auto) 2.9 % (9.0-44.0); Mean Corpuscular Volume 88.2 fL (80.0-100.0); Mean Platelet Volume 11.1 fL (7.0-11.0); Mono # (Auto) 0.3 th/mm3 (0.0-0.9); Mono % (Auto) 1.7 % (0.0-8.0); Neut # (Auto) 18.8 th/mm3 (1.8-7.7); Neut % (Auto) 95.2 % (16.0-70.0); Platelet Count 29 th/mm3 (150-450); Red Blood Count 2.48 mil/mm3 (4.00-5.30); Red Cell Distribution Width 15.4 % (11.6-17.2); White Blood Count 19.7 th/mm3 (4.0-11.0)
[2018-05-20 05:51] LABS: Activated Partial Thrombo Time 26.7 sec (23.4-31.7); Prothrombin Time 10.6 sec (9.8-11.6)
[2018-05-20] MEDS: Pantoprazole Inj 80 MG in Sodium Chlor 0.9% Inj 100 ML IV.CONT SCH ×3 (05:57→19:25)
[2018-05-20 06:33] LABS: Albumin 1.8 g/dL (3.4-5.0); Calcium 6.8 mg/dL (8.5-10.1); Carbon Dioxide 24.1 meq/L (21.0-32.0); Magnesium 1.8 mg/dL (1.5-2.5); Phosphorus 2.8 mg/dL (2.5-4.9); Potassium 4.5 meq/L (3.5-5.1)
[2018-05-20] MEDS: Senna/Docusate Sodium 8.6/50 MG Tablet PO SCH (08:07)
[2018-05-20] MEDS: Lidocaine 5% Patch T-DERMAL SCH (08:08)
--- NOTE | 2018-05-20 08:13 | IR ---
EXAM DATE: 05/19/2018 6:11 PM EST AGE/SEX: 82 years / Female INDICATIONS: 82-year-old female with history of acute GI hemorrhage confirmed on bleeding scan. This appears to arise from the distal duodenum CLINICAL DATA: This is the patient's initial encounter. Patient reports that signs and symptoms have been present for 2 days and indicates a pain score of 0/10. MEDICAL/SURGICAL HISTORY: . Right lower lobe mass, Sjoegren Syndrome . Heart Artery Stent, S/P Lobectomy of lung. COMPARISON: No prior exams available for comparison. FLUORO TIME (min): 7.15 IMAGE SERIES: 14 ACCESS SITE: Right femoral artery SEDATION TIME (min): 60 CONTRAST (cc): 120 Visipaque (iodixanol) MEDICATION(S): 1.5 midazolam (Versed) IV ; 75 mcg fentanyl (Sublimaze) IV ; ; ; DEVICE(S): Left Superior mesenteric artery embolic coil(s) Interlock VortX Cindy Coil 2mm X 3mm X 2.3cm ; Left Superior mesenteric artery embolic coil Interlock VortX Cindy Coil 2mm X 4mm X 4.1cm ; Left Superi or mesenteric artery Gelfoam Right common femoral artery Syvek pad ; ; ; ; . . PROCEDURE : 1. Ultrasound-guided puncture of the access site. 2. Conscious sedation with continuous EKG and Oximetry monitoring. 3. Selective catheter placement in the celiac artery with selective angiography 4. Selective catheter placement in the SMA with selective angiography 5. Subselective catheter placement in 3 separate second order branches of the SMA with selective ang iography 6. Gelfoam and coil embolization of a proximal pancreaticoduodenal branch of the SMA. The risks, benefits and alternatives to the procedure were explained and verbal and written consent w as obtained. The site was prepped in sterile fashion. Full sterile technique was used, including ca p, mask, sterile gloves and gown and a large sterile sheet. Hand hygiene and 2% chlorhexidine and/or betadine/alcohol prep was utilized per protocol for cutaneous antisepsis. Sterile gel and sterile p robe cover were utilized for ultrasound guidance. The skin and subcutaneous tissues were infiltrated with local anesthetic solution. With ultrasound and fluoroscopic guidance the selected artery was punctured and a vascular sheath was placed. 4 Persian SOS 0 catheter was advanced into the celiac origin and angiography was performed. T his demonstrated standard celiac anatomy without evidence for extravasation. Catheter was then reposi tioned into the SMA. Angiography was performed in multiple obliquities. This did not demonstrate defi nitive contrast extravasation or vascular malformation. Therefore, multiple second-order branches of the SMA were subselected with a Renegade microcatheter and subselective angiography was performed. A proximal SMA branch, likely pancreaticoduodenal, supplied the region of abnormality noted on CT in th e fourth portion of the duodenum. Angiography demonstrates a focal region of abnormal enhancement ana lilia trally. Therefore, this branch was embolized with small amount of Gelfoam and 2 Interlock coils. Foll ow-up angiography demonstrated stasis of flow in the embolized branches with patency of the remaining SMA. Catheters and wires were then removed. The puncture site was closed with manual pressure and hemostasis was obtained. The patient tolerated the procedure well and there were no complications. Conscious sedation was performed with the prescribed dosages and duration as above in the presence of an independent trained radiology nurse to assist in the monitoring of the patient. EKG and oximetry remained stable throughout the procedure. CONCLUSION: 1. Abnormal region of enhancement corresponding to region of active bleeding in the fourth portion o f the duodenum, likely in a duodenal diverticulum. 2. 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 Electronically signed by: Clemente Rodriguez MD 05/20/2018 8:12 AM EST
--- NOTE | 2018-05-20 08:27 | MB ---
cc: Ronal Shin MD DATE: 05/20/2018 REASON FOR EVALUATION: Known heart disease. HISTORY OF PRESENT ILLNESS: Mera Perea is an 82-year-old female well-known to me. She is admitted with a GI bleed. She has had an interventional radiology procedure to embolize a bleeding site in the duodenum. Endoscopy apparently has not revealed sites of bleeding. The patient has known coronary artery disease. On 10/14/2013, she had overlapping 3.0 x 12 mm Xience stents in her mid right coronary artery. Last cardiac catheterization was 12/20/2014. The stents in the right coronary artery looked satisfactory. Her circumflex artery was totally occluded. The left anterior descending artery had 25% disease. Ramus had 10% disease. Right coronary artery only had 20% disease. Coronary artery disease is being treated medically. She has gotten very profoundly anemic. I cannot elicit any chest pain from her. She is a little bit lethargic. She is also noted to have high-grade ostial left renal artery stenosis, but has seen Dr. Josemanuel Kaplan and there is no recommendation to do renal artery stenting. MEDICATIONS: Her medications when I last saw in the office 03/24 were amlodipine 10 mg, aspirin 81 mg enteric coated, finasteride 1 mg daily, IBgard 90 mg as directed. Imdur 30 mg q.a.m., losartan 50 mg daily, Sesser 5/325 as needed for pain, pantoprazole 20 mg. Looking at what she is getting here, she is not receiving amlodipine or aspirin. She is on GI meds only. ALLERGIES: INCLUDE LISINOPRIL CAUSING A COUGH AND SULFA. 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 PAST SURGICAL HISTORY: Include her catheterizations, stents, hysterectomy, right lower lobe lobectomy on 04/25/2016, right coronary artery drug-eluting stent 10/14/2013, previous right shoulder surgery. FAMILY HISTORY: Positive for coronary disease in her brother. SOCIAL HISTORY: Smoked about 1/4 pack a day from age 17 to age 43. Drinks alcohol rarely. REVIEW OF SYSTEMS: No additional information is learned from her today. PHYSICAL EXAMINATION: GENERAL: Overweight, well-developed, white female. She demonstrates marked pallor. She is lethargic. HEENT: Unremarkable. NECK: No JVD. No bruits. CHEST: Clear to auscultation. CARDIOVASCULAR: S1, S2, regular rate and rhythm, without murmurs or gallops. ABDOMEN: She points to abdominal pain throughout her abdomen, more on the left side than right. EXTREMITIES: Reveal no clubbing, cyanosis, or edema. LABORATORY DATA: She has had 1 troponin level checked, which was 0.04 yesterday morning. She was profoundly anemic. She has gotten her hematocrit is low at 16.1, currently 21.9. Creatinine is normal 0.76, albumin is only 1.8. IMPRESSION AND PLAN: An 82-year-old with known coronary artery disease. Her circumflex artery is totally occluded. She has a gastrointestinal bleed. I do not see any signs of active acute coronary syndrome. Due to her age and coronary disease, I think her hematocrit is too low for adequate oxygen carrying capacity and recommend additional transfusion. She is not having angina or showing signs of infarction. Her EKG from yesterday shows sinus tachycardia. There are some ST changes and she did not have ST changes with seen in the office. This may represent subendocardial ischemia. For anemia, I think the best treatment approach for that would be additional transfusion. Obviously, she is not a candidate for anticoagulation at the current time. Thank you very much for asking me to see her. MD JOYA Mccallum/maik , 07:54 AM , 08:04 AM
--- NOTE | 2018-05-20 08:56 | P.PNGI ---
Subjective Interval history: Pt is asleep, awakes to me calling her name. Per nurse, pt with lots of epigastric pain, has to be placed on Dilaudid to get relief. Had two BMs last night with dark old bloody clots. Received 3 units of blood yesterday, hgb today is 7.4, holding increased from 5.6. No nausea or vomiting. <Mikie Giron - Last Filed: 05/20/18 15:14> Physical Exam Vital signs: Vital Signs 05/19/18 12:00 05/19/18 15:23 05/19/18 16:00 Temperature 98.2 F 98.6 F 97.7 F Pulse Rate 105 H 108 H 103 H Respiratory Rate 18 16 19 Blood Pressure 113/56 L 134/59 L 125/58 L Pulse Oximetry 95 05/19/18 16:21 05/19/18 17:07 05/19/18 17:09 Temperature Pulse Rate 109 H 115 H 114 H Respiratory Rate 16 20 Blood Pressure 139/75 125/58 L Pulse Oximetry 05/19/18 18:00 05/19/18 19:00 05/19/18 19:13 Temperature 97.7 F Pulse Rate 104 H 104 H 105 H Respiratory Rate 12 46 H 0 L Blood Pressure 125/58 L 157/69 H Pulse Oximetry 100 100 98 05/19/18 19:40 05/19/18 20:00 05/19/18 20:10 Temperature 98.5 F Pulse Rate 104 H 104 H Respiratory Rate 0 L 20 20 Blood Pressure 167/70 H 140/63 Pulse Oximetry 100 100 05/19/18 20:44 05/19/18 21:00 05/19/18 21:02 Temperature Pulse Rate 109 H 108 H Respiratory Rate 20 30 H 19 Blood Pressure 140/103 H 139/64 Pulse Oximetry 99 98 05/19/18 21:15 05/19/18 22:00 05/19/18 22:15 Temperature Pulse Rate 116 H 106 H 106 H Respiratory Rate 41 H 10 L 10 L Blood Pressure 131/72 129/56 L Pulse Oximetry 92 L 97 97 05/19/18 22:26 05/19/18 23:00 05/19/18 23:15 Temperature Pulse Rate 103 H 104 H Respiratory Rate 15 10 L 13 Blood Pressure 133/61 Pulse Oximetry 98 97 05/20/18 00:00 05/20/18 00:15 05/20/18 04:00 Temperature 98.0 F 98.0 F Pulse Rate 102 H 102 H 103 H Respiratory Rate 10 L 10 L 15 Blood Pressure 129/61 129/61 129/61 Pulse Oximetry 97 98 98 05/20/18 04:32 05/20/18 08:02 Temperature Pulse Rate Respiratory Rate 16 Blood Pressure Pulse Oximetry 98 Intake & Output 05/19/18 05/20/18 05/20/18 18:59 06:59 18:59 Intake Total 1900 / 1900 500 / 500 200 / 200 Output Total 1501 / 1501 Balance 1900 / 1900 -1001 / -1001 200 / 200 Weight 81.1 kg Intake: IV 1100 / 1100 100 / 100 200 / 200 Protonix Inj 80 MG In NS Inj 100 / 100 100 / 100 100 ML @ 10 mls/hr IV.CONT Q10H [facility] Rx#:[id number] NS Inj 1,000 ML @ 100 mls/hr IV 1000 / 1000 .CONT .Q10H [facility] Rx#:[id number] Oral 200 / 200 Anesthesia Amount 200 / 200 Intake (Blood Product) Amt 800 / 800 Rbc As-3 Leukoreduced Unit 0 / 0 [id number] Rbc As-3 Leukoreduced Unit 400 / 400 [id number] Rbc As-3 Leukoreduced Unit 400 / 400 [id number] Output: Urine 1400 / 1400 Urine/Stool Mix 1 / Emesis 100 / 100 Other: # Voids 1 1 Date of Last Bowel Movement 05/18/18 05/20/18 # Bowel Movements 1 1 # Incontinent Bowel Movements 1 Weight On Admission 71.4 kg Narrative: GENERAL: Resting comfortably, in no acute distress HEENT: Normocephalic. Atraumatic. Pupils equal, round, reactive, conjugate. CHEST: RRR CARDIOVASCULAR: normal rate, regular rhythm. sinus. ABDOMEN: Soft, nontender, nondistended. No guarding. no hematoma to R groin site MUSCULOSKELETAL: Pulses 2+. No peripheral edema. NEUROLOGICAL: Lethargic, no focal deficits. <Mikie Giron - Last Filed: 05/20/18 15:14> Vital signs: Vital Signs 05/19/18 19:00 05/19/18 19:13 05/19/18 19:40 Temperature Pulse Rate 104 H 105 H 104 H Respiratory Rate 46 H 0 L 0 L Blood Pressure 157/69 H 167/70 H Pulse Oximetry 100 98 100 05/19/18 20:00 05/19/18 20:10 05/19/18 20:44 Temperature 98.5 F Pulse Rate 104 H Respiratory Rate 20 20 20 Blood Pressure 140/63 Pulse Oximetry 100 05/19/18 21:00 05/19/18 21:02 05/19/18 21:15 Temperature Pulse Rate 109 H 108 H 116 H Respiratory Rate 30 H 19 41 H Blood Pressure 140/103 H 139/64 131/72 Pulse Oximetry 99 98 92 L 05/19/18 22:00 05/19/18 22:15 05/19/18 22:26 Temperature Pulse Rate 106 H 106 H Respiratory Rate 10 L 10 L 15 Blood Pressure 129/56 L Pulse Oximetry 97 97 05/19/18 23:00 05/19/18 23:15 05/20/18 00:00 Temperature 98.0 F Pulse Rate 103 H 104 H 102 H Respiratory Rate 10 L 13 10 L Blood Pressure 133/61 129/61 Pulse Oximetry 98 97 97 05/20/18 00:15 05/20/18 04:00 05/20/18 04:32 Temperature 98.0 F Pulse Rate 102 H 103 H Respiratory Rate 10 L 15 16 Blood Pressure 129/61 129/61 Pulse Oximetry 98 98 05/20/18 06:00 05/20/18 06:47 05/20/18 07:00 Temperature Pulse Rate 106 H 108 H 107 H Respiratory Rate 11 L 12 10 L Blood Pressure 145/58 H Pulse Oximetry 99 100 100 05/20/18 07:47 05/20/18 08:00 05/20/18 08:02 Temperature 97.8 F Pulse Rate 113 H 107 H Respiratory Rate 23 17 Blood Pressure 151/66 H Pulse Oximetry 99 98 98 05/20/18 08:47 05/20/18 09:00 05/20/18 09:47 Temperature Pulse Rate 110 H 112 H 114 H Respiratory Rate 10 L 17 15 Blood Pressure 126/60 128/69 Pulse Oximetry 97 98 98 05/20/18 09:58 05/20/18 10:00 05/20/18 10:13 Temperature Pulse Rate 113 H 112 H 112 H Respiratory Rate 18 11 L 11 L Blood Pressure 139/63 123/56 L Pulse Oximetry 97 97 97 05/20/18 10:47 05/20/18 11:00 05/20/18 11:47 Temperature Pulse Rate 111 H 112 H 111 H Respiratory Rate 12 11 L 12 Blood Pressure 145/65 H 135/59 L Pulse Oximetry 96 98 98 05/20/18 12:00 05/20/18 12:32 05/20/18 12:33 Temperature 98.9 F 97.7 F Pulse Rate 111 H 112 H 116 H Respiratory Rate 12 12 22 Blood Pressure 137/67 137/67 Pulse Oximetry 99 96 98 05/20/18 12:47 05/20/18 13:00 05/20/18 13:30 Temperature 98.3 F Pulse Rate 112 H 118 H 109 H Respiratory Rate 16 13 12 Blood Pressure 151/66 H 135/63 Pulse Oximetry 94 L 92 L 99 05/20/18 14:00 05/20/18 14:05 05/20/18 14:07 Temperature 98.3 F Pulse Rate 113 H 114 H 115 H Respiratory Rate 16 18 18 Blood Pressure 153/67 H 155/66 H 155/66 H Pulse Oximetry 97 98 99 05/20/18 14:30 05/20/18 15:00 05/20/18 15:30 Temperature Pulse Rate 113 H 114 H 112 H Respiratory Rate 13 18 22 Blood Pressure 157/72 H 167/79 H 200/86 H Pulse Oximetry 97 99 98 05/20/18 17:03 Temperature 98.3 F Pulse Rate 112 H Respiratory Rate 18 Blood Pressure 156/85 H Pulse Oximetry 96 Intake & Output 05/19/18 05/20/18 05/20/18 18:59 06:59 18:59 Intake Total 1900 / 1900 500 / 500 1400 / 1400 Output Total 1501 / 1501 200 / 200 Balance 1900 / 1900 -1001 / -1001 1200 / 1200 Weight 81.1 kg Intake: IV 1100 / 1100 100 / 100 1200 / 1200 Protonix Inj 80 MG In NS Inj 100 / 100 100 / 100 100 ML @ 10 mls/hr IV.CONT Q10H [facility] Rx#:[id number] NS Inj 1,000 ML @ 100 mls/hr IV 1000 / 1000 1000 / 1000 .CONT .Q10H [facility] Rx#:[id number] Oral 200 / 200 200 / 200 Anesthesia Amount 200 / 200 Intake (Blood Product) Amt 800 / 800 0 / 0 Plt Pheresis B Leukoreduced 0 / 0 Unit [id number] Rbc As-3 Leukoreduced Unit 0 / 0 [id number] Rbc As-3 Leukoreduced Unit 400 / 400 [id number] Rbc As-3 Leukoreduced Unit 400 / 400 [id number] Rbc As-3 Leukoreduced Unit 0 / 0 [id number] Rbc As-3 Leukoreduced Unit 0 / 0 [id number] Output: Urine 1400 / 1400 Urine/Stool Mix Emesis 100 / 100 200 / 200 Other: # Voids 1 1 2 Date of Last Bowel Movement 05/18/18 05/20/18 05/20/18 # Bowel Movements 1 1 0 # Incontinent Bowel Movements 1 Weight On Admission 71.4 kg <Caro Che - Last Filed: 05/20/18 18:05> Results - Labs CBC & Chem 7: 05/20/18 10:45 05/20/18 05:17 Laboratory Results - last 24 hr 05/17/18 05/17/18 05/18/18 05:00 09:15 07:24 WBC RBC Hgb Hct MCV MCH MCHC RDW Plt Count MPV Prelim Diff (Auto) Neut % (Auto) Lymph % (Auto) [place] % (Auto) Eos % (Auto) Baso % (Auto) Neut # (Auto) Lymph # (Auto) [place] # (Auto) Eos # (Auto) Baso # (Auto) WBC Differential Diff Scan Seg Neuts % (Manual) Band Neuts % (Manual) Lymphocytes % (Manual) Monocytes % (Manual) Abs Neuts (Manual) Nucleated RBCs/100 WBC Differential Comment Platelet Estimate Platelet Morphology Acanthocytes (Spur) PT INR APTT Fibrinogen Puncture Site Patient Temperature O2 Saturation ABG pH ABG pCO2 ABG pO2 ABG HCO3 ABG O2 Content ABG Base Excess ABG Methemoglobin Hemoglobin Carboxyhemoglobin Inspired O2 Critical Value Sodium Potassium Chloride Carbon Dioxide Anion Gap BUN Creatinine Estimated GFR Random Glucose Calcium Calcium Adj for Albumin Phosphorus Magnesium Iron TIBC % Saturation Total Bilirubin AST ALT Alkaline Phosphatase Troponin I Total Protein Albumin Vitamin B12 Folate MTS Gel Crossmatch See Detail See Detail See Detail 05/19/18 05/19/18 05/19/18 07:00 10:39 11:04 WBC RBC Hgb Hct MCV MCH MCHC RDW Plt Count MPV Prelim Diff (Auto) Neut % (Auto) Lymph % (Auto) [place] % (Auto) Eos % (Auto) Baso % (Auto) Neut # (Auto) Lymph # (Auto) [place] # (Auto) Eos # (Auto) Baso # (Auto) WBC Differential Diff Scan Seg Neuts % (Manual) Band Neuts % (Manual) Lymphocytes % (Manual) Monocytes % (Manual) Abs Neuts (Manual) Nucleated RBCs/100 WBC Differential Comment Platelet Estimate Platelet Morphology Acanthocytes (Spur) PT INR APTT Fibrinogen Puncture Site Patient Temperature O2 Saturation ABG pH ABG pCO2 ABG pO2 ABG HCO3 ABG O2 Content ABG Base Excess ABG Methemoglobin Hemoglobin Carboxyhemoglobin Inspired O2 Critical Value Sodium 144 Potassium 4.2 Chloride 114 H Carbon Dioxide 24.9 Anion Gap 5 BUN 28 H Creatinine 0.84 Estimated GFR 65 L Random Glucose 130 H Calcium 6.8 L* Calcium Adj for Albumin 8.5 Phosphorus Magnesium Iron 32 L TIBC 192 L % Saturation 16.7 L Total Bilirubin AST ALT Alkaline Phosphatase Troponin I 0.04 Total Protein Albumin 1.9 L Vitamin B12 213 Folate Greater than 20.0 H MTS Gel Crossmatch See Detail 05/19/18 05/19/18 05/19/18 11:58 16:45 16:45 WBC 14.2 H 12.6 H RBC 1.75 L 2.56 L Hgb 5.6 L* 7.9 L D Hct 16.1 L* 22.4 L MCV 91.6 87.4 D MCH 31.7 31.1 MCHC 34.6 35.6 RDW 14.9 15.8 Plt Count MPV 11.3 H 9.5 Prelim Diff (Auto) Slide review pending Slide review pending Neut % (Auto) 87.9 H 83.6 H Lymph % (Auto) 6.7 L 8.0 L [place] % (Auto) 5.1 7.9 Eos % (Auto) 0.1 0.3 Baso % (Auto) 0.2 0.2 Neut # (Auto) 12.4 H 10.5 H Lymph # (Auto) 1.0 1.0 [place] # (Auto) 0.7 1.0 H Eos # (Auto) 0.0 0.0 Baso # (Auto) 0.0 0.0 WBC Differential . Manual diff final Diff Scan Auto diff confirmed Seg Neuts % (Manual) 88 H Band Neuts % (Manual) 5 Lymphocytes % (Manual) 6 L Monocytes % (Manual) 1 Abs Neuts (Manual) 11.7 H Nucleated RBCs/100 WBC 1 H Differential Comment . . Platelet Estimate Low L Low L Platelet Morphology Enlarged H Enlarged H Acanthocytes (Spur) Occ H PT INR APTT 33.6 H Fibrinogen Puncture Site Patient Temperature O2 Saturation ABG pH ABG pCO2 ABG pO2 ABG HCO3 ABG O2 Content ABG Base Excess ABG Methemoglobin Hemoglobin Carboxyhemoglobin Inspired O2 Critical Value Sodium Potassium Chloride Carbon Dioxide Anion Gap BUN Creatinine Estimated GFR Random Glucose Calcium Calcium Adj for Albumin Phosphorus Magnesium Iron TIBC % Saturation Total Bilirubin AST ALT Alkaline Phosphatase Troponin I Total Protein Albumin Vitamin B12 Folate MTS Gel Crossmatch 05/19/18 05/19/18 05/20/18 16:45 17:02 05:17 WBC 19.7 H D RBC 2.48 L Hgb 7.4 L Hct 21.9 L MCV 88.2 MCH 30.0 MCHC 34.0 RDW 15.4 Plt Count 29 L MPV 11.1 H Prelim Diff (Auto) Slide review pending Neut % (Auto) 95.2 H Lymph % (Auto) 2.9 L [place] % (Auto) 1.7 Eos % (Auto) 0.0 Baso % (Auto) 0.2 Neut # (Auto) 18.8 H Lymph # (Auto) 0.6 L [place] # (Auto) 0.3 Eos # (Auto) 0.0 Baso # (Auto) 0.0 WBC Differential . Diff Scan Auto diff confirmed Seg Neuts % (Manual) Band Neuts % (Manual) Lymphocytes % (Manual) Monocytes % (Manual) Abs Neuts (Manual) Nucleated RBCs/100 WBC Differential Comment . Platelet Estimate Low L Platelet Morphology Enlarged H Acanthocytes (Spur) PT 11.1 INR 1.1 APTT Fibrinogen Puncture Site Unknown Patient Temperature 98.6 O2 Saturation 92 ABG pH 7.32 L ABG pCO2 50 H ABG pO2 74 ABG HCO3 25 ABG O2 Content 10.5 L ABG Base Excess -0.8 ABG Methemoglobin 0.6 Hemoglobin 8.0 L Carboxyhemoglobin 1.5 Inspired O2 21 Critical Value No Sodium Potassium Chloride Carbon Dioxide Anion Gap BUN Creatinine Estimated GFR Random Glucose Calcium Calcium Adj for Albumin Phosphorus Magnesium Iron TIBC % Saturation Total Bilirubin AST ALT Alkaline Phosphatase Troponin I Total Protein Albumin Vitamin B12 Folate MTS Gel Crossmatch 05/20/18 05/20/18 05:17 05:17 WBC RBC Hgb Hct MCV MCH MCHC RDW Plt Count MPV Prelim Diff (Auto) Neut % (Auto) Lymph % (Auto) [place] % (Auto) Eos % (Auto) Baso % (Auto) Neut # (Auto) Lymph # (Auto) [place] # (Auto) Eos # (Auto) Baso # (Auto) WBC Differential Diff Scan Seg Neuts % (Manual) Band Neuts % (Manual) Lymphocytes % (Manual) Monocytes % (Manual) Abs Neuts (Manual) Nucleated RBCs/100 WBC Differential Comment Platelet Estimate Platelet Morphology Acanthocytes (Spur) PT 10.6 INR 1.0 APTT 26.7 D Fibrinogen 285 Puncture Site Patient Temperature O2 Saturation ABG pH ABG pCO2 ABG pO2 ABG HCO3 ABG O2 Content ABG Base Excess ABG Methemoglobin Hemoglobin Carboxyhemoglobin Inspired O2 Critical Value Sodium 143 Potassium 4.5 Chloride 114 H Carbon Dioxide 24.1 Anion Gap 5 BUN 23 H Creatinine 0.76 Estimated GFR 73 L Random Glucose 164 H Calcium 6.8 L* Calcium Adj for Albumin 8.5 Phosphorus 2.8 Magnesium 1.8 Iron TIBC % Saturation Total Bilirubin 0.2 AST 18 ALT 14 Alkaline Phosphatase 45 Troponin I Total Protein 4.0 L Albumin 1.8 L Vitamin B12 Folate MTS Gel Crossmatch - Imaging Impressions GI Bleed Scan Nuclear Medicine 05/19/18 00:00 CONCLUSION: 1. 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 Patient was emergently brought to the interventional radiology department from the nuclear medicine department for angiography and intervention. Mesenteric Arteriogram 05/19/18 14:37 CONCLUSION: 1. 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 2. 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 <Mikie Giron - Last Filed: 05/20/18 15:14> - Labs CBC & Chem 7: 05/20/18 16:44 05/20/18 05:17 Laboratory Results - last 24 hr 05/17/18 05/18/18 05/19/18 09:15 07:24 07:00 WBC RBC Hgb Hct MCV MCH MCHC RDW Plt Count MPV Prelim Diff (Auto) Neut % (Auto) Lymph % (Auto) [place] % (Auto) Eos % (Auto) Baso % (Auto) Neut # (Auto) Lymph # (Auto) [place] # (Auto) Eos # (Auto) Baso # (Auto) WBC Differential Diff Scan Differential Comment Platelet Estimate Platelet Morphology PT INR APTT Fibrinogen Puncture Site Patient Temperature O2 Saturation ABG pH ABG pCO2 ABG pO2 ABG HCO3 ABG O2 Content ABG Base Excess ABG Methemoglobin [place] Test Hemoglobin Carboxyhemoglobin O2 Delivery Device Liter Flow Vent Setting Inspired O2 Critical Value Sodium Potassium Chloride Carbon Dioxide Anion Gap BUN Creatinine Estimated GFR Random Glucose Calcium Calcium Adj for Albumin Phosphorus Magnesium Total Bilirubin AST ALT Alkaline Phosphatase Total Protein Albumin Blood Type Antibody Screen MTS Gel Crossmatch See Detail See Detail See Detail Bld Prod Order Comment 05/19/18 05/20/18 05/20/18 17:02 05:17 05:17 WBC 19.7 H D RBC 2.48 L Hgb 7.4 L Hct 21.9 L MCV 88.2 MCH 30.0 MCHC 34.0 RDW 15.4 Plt Count 29 L MPV 11.1 H Prelim Diff (Auto) Slide review pending Neut % (Auto) 95.2 H Lymph % (Auto) 2.9 L [place] % (Auto) 1.7 Eos % (Auto) 0.0 Baso % (Auto) 0.2 Neut # (Auto) 18.8 H Lymph # (Auto) 0.6 L [place] # (Auto) 0.3 Eos # (Auto) 0.0 Baso # (Auto) 0.0 WBC Differential . Diff Scan Auto diff confirmed Differential Comment . Platelet Estimate Low L Platelet Morphology Enlarged H PT INR APTT Fibrinogen Puncture Site Cancelled Patient Temperature Cancelled O2 Saturation Cancelled ABG pH Cancelled ABG pCO2 Cancelled ABG pO2 Cancelled ABG HCO3 Cancelled ABG O2 Content Cancelled ABG Base Excess Cancelled ABG Methemoglobin Cancelled [place] Test Cancelled Hemoglobin Cancelled Carboxyhemoglobin Cancelled O2 Delivery Device Cancelled Liter Flow Cancelled Vent Setting Cancelled Inspired O2 Cancelled Critical Value Cancelled Sodium 143 Potassium 4.5 Chloride 114 H Carbon Dioxide 24.1 Anion Gap 5 BUN 23 H Creatinine 0.76 Estimated GFR 73 L Random Glucose 164 H Calcium 6.8 L* Calcium Adj for Albumin 8.5 Phosphorus 2.8 Magnesium 1.8 Total Bilirubin 0.2 AST 18 ALT 14 Alkaline Phosphatase 45 Total Protein 4.0 L Albumin 1.8 L Blood Type Antibody Screen MTS Gel Crossmatch Bld Prod Order Comment 05/20/18 05/20/18 05/20/18 05:17 10:45 10:55 WBC RBC Hgb 6.1 L* Hct 18.8 L* MCV MCH MCHC RDW Plt Count MPV Prelim Diff (Auto) Neut % (Auto) Lymph % (Auto) [place] % (Auto) Eos % (Auto) Baso % (Auto) Neut # (Auto) Lymph # (Auto) [place] # (Auto) Eos # (Auto) Baso # (Auto) WBC Differential Diff Scan Differential Comment Platelet Estimate Platelet Morphology PT 10.6 INR 1.0 APTT 26.7 D Fibrinogen 285 Puncture Site Patient Temperature O2 Saturation ABG pH ABG pCO2 ABG pO2 ABG HCO3 ABG O2 Content ABG Base Excess ABG Methemoglobin [place] Test Hemoglobin Carboxyhemoglobin O2 Delivery Device Liter Flow Vent Setting Inspired O2 Critical Value Sodium Potassium Chloride Carbon Dioxide Anion Gap BUN Creatinine Estimated GFR Random Glucose Calcium Calcium Adj for Albumin Phosphorus Magnesium Total Bilirubin AST ALT Alkaline Phosphatase Total Protein Albumin Blood Type O Positive Antibody Screen Negative MTS Gel Crossmatch See Detail Bld Prod Order Comment 05/20/18 05/20/18 05/20/18 11:34 15:20 16:44 WBC RBC Hgb 8.7 L D Hct 25.2 L MCV MCH MCHC RDW Plt Count MPV Prelim Diff (Auto) Neut % (Auto) Lymph % (Auto) [place] % (Auto) Eos % (Auto) Baso % (Auto) Neut # (Auto) Lymph # (Auto) [place] # (Auto) Eos # (Auto) Baso # (Auto) WBC Differential Diff Scan Differential Comment Platelet Estimate Platelet Morphology PT INR APTT Fibrinogen Puncture Site Patient Temperature O2 Saturation ABG pH ABG pCO2 ABG pO2 ABG HCO3 ABG O2 Content ABG Base Excess ABG Methemoglobin [place] Test Hemoglobin Carboxyhemoglobin O2 Delivery Device Liter Flow Vent Setting Inspired O2 Critical Value Sodium Potassium Chloride Carbon Dioxide Anion Gap BUN Creatinine Estimated GFR Random Glucose Calcium Calcium Adj for Albumin Phosphorus Magnesium Total Bilirubin AST ALT Alkaline Phosphatase Total Protein Albumin Blood Type Antibody Screen MTS Gel Crossmatch See Detail Bld Prod Order Comment - Imaging Impressions Mesenteric Arteriogram 05/19/18 14:37 CONCLUSION: 1. 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 2. 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 <Caro Che - Last Filed: 05/20/18 18:05> Assessment and Plan (1) GI bleed Status: Acute Code(s): K92.2 - Gastrointestinal hemorrhage, unspecified - Plan This patient is an 82-year-old female who presented to the emergency room at [facility] with complaint of nausea vomiting and abdominal pain. Past medical history significant for right lower lobe lung mass and Sjogren's syndrome. Surgical history significant for cardiac stent and lobectomy of lung. Upon consultation, patient reports onset of nausea with projectile vomiting since 2 AM this morning. States that this was precipitated by 24 hours of experiencing decreased appetite with nausea and generalized weakness. Patient states during the 2 episodes of projectile vomiting at home she also had formed black tarry stools. Last colonoscopy done in February 2018 revealed diverticulosis in the sigmoid colon with multiple polyps, internal and external hemorrhoids. She reports emesis was clear and denies hematemesis. Patient endorses taking aspirin 81 mg p.o. daily and denies any use of NSAIDs. She reports history of gastritis noted on EGD done in February 2018. History of GERD for which patient takes Protonix 40 mg p.o. daily. Patient denies any known family history of gastrointestinal disorders and denies any use of tobacco or alcohol products. GI bleed -Onset 2 AM this morning, nausea with projectile vomiting and black tarry stools. -03/11/2018 EGD-- 1.Gastritis antrum-biopsy duodenum normal-biopsy esophagitis grade B-biopsy 2.Retroflexed views revealed a hiatal hernia -03/11/2018 colonoscopy-- 1. Diverticulosis sigmoid,descending polyp sessile hepatic flexure-8 mm-hot snare polypectomy polyp sessile 8 mm cecum-hot snare polypectomy with complete removal very tortuous and floppy colon cecum seen , not able to enter cap due to looping, but seen well possible adhesions 2. There was no evidence of random biopsies from ascending and descending colon to r/o microscopic colitis 3. Retroflexed views revealed internal hemorrhoids 4. Retroflexed views revealed small internal hemorrhoids 5. Revealed external hemorrhoids -05/17/2018 hemoglobin 7.6 hematocrit 22.5 GI bleed Per nurse, pt with lots of epigastric pain, has to be placed on Dilaudid to get relief. Had two BMs last night with dark old bloody clots. Received 3 units of blood yesterday, hgb today is 7.4, holding increased from 5.6. No nausea or vomiting. 05/18/2018 EGD revealed the following findings-- 1. The esophagus was otherwise normal 2. There was mild gastritis in the entire examined stomach; biopsy was performed 3. Large amount of fresh blood covering the stomach, the entire mucosa was inspected after suctioning, no abnormalities or source of bleeding identified 4. Normal duodenal mucosa 5. Retroflexed views revealed Large amount of fresh blood GI Bleed Scan Nuclear Medicine 05/19/18 CONCLUSION: 1. 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 Patient was emergently brought to the interventional radiology department from the nuclear medicine department for angiography and intervention. Mesenteric Arteriogram 05/19/18 CONCLUSION: 1. 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 2. 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 Case discussed with Dr. Scott, will give Plt as this might help with her bleeding Plan -NPO -Monitor hemoglobin and hematocrit closely -Avoid anticoagulants and NSAIDs - Case was discussed with Dr. Rodriguez in IR who didn't recommend another angiogram but recommended doing EGD however the bleeding site is in distal duodenum and pt would need enteroscopy - Plt transfusion per Dr. Scott -Monitor for bleeding -Notify Gi for active bleed -Keep hgb >7 -EGD/enteroscopy today, discussed with nurse -Obtain consents -Continue PPI -IV hydration -Supportive care -Further recommendations to follow This patient has been seen by myself and Dr. Che and this note is written on his behalf <Mikie Giron - Last Filed: 05/20/18 15:14> (1) GI bleed Status: Acute Code(s): K92.2 - Gastrointestinal hemorrhage, unspecified - Plan Patient was seen and examined, agree with above note, patient is extremely sick with active bleeding, will plan an enteroscopy to see if we can identify bleed or see if the patient has ischemia, we will ask for surgical consult <Caro Che - Last Filed: 05/20/18 18:05>
--- NOTE | 2018-05-20 10:19 | P.PNCC ---
Subjective Subjective Remarks/Hospital Course: Hospital Course: 82yF with history of amyloidosis who presented with GI bleeding, hypotension, and severe anemia. originally admitted to the floor. hgb continued to downtrend despite transfusions. today taken for EGD which found blood in the stomach and clot, but no active bleeding. despite this, hgb still did not improve. taken for bleeding scan which was very +. discussed case with Dr. Garcia/Dr. Garland in IR. review of admission CT abd/pelvis demonstrates possible bleeding at duodenal bulb concerning for ulceration. Taken emergently to IR for embolization which appears to be successful. I evaluated the patient upon arrival to the ICU post-IR procedure. she is stable. complaining of hip pain. hgb has improved appropriately. she denies other complaints. she asked me not to look at her groin sites because "my hips hurt and I am tired." Recent evaluation by bedside RN is without hematoma, and this evaluation is deferred at patient's request (bedside RN to continue to monitor for signs of hematoma). remainder of ROS negative. Subjective: 05/20: doing well. complaining of moderate abdominal pain 5/10. receiving iv dilaudid currently. plan for EGD today. hgb dropped from 7.8 to 7.4, but slightly more tachycardic today, and I am worried about ongoing bleeding, although it does appear to be much slower clinically than yesterday. I discussed with GI DOLL WIG HACKLER that per my conversation with IR, the lesion may be in the 4th portion of the duodenum near the ligament and it may require further investigation that usual EGD, and possibly push enteroscopy. She stated she would convey to the proceduralist. Dr. Shin suggests type II NSTEMI secondary to anemia and I agree completely with his assessment. Given that she is going soon for repeat EGD with anesthesia, will give 1 additional unit of prbc as she clearly has demonstrated she needs higher hematocrit for oxygen carrying capacity to her known ischemic CAD lesions. Objective Vital Signs / I&O: Vital Signs 05/19/18 12:00 05/19/18 15:23 05/19/18 16:00 Temperature 36.8 C 37.0 C 36.5 C Pulse Rate 105 H 108 H 103 H Respiratory Rate 18 16 19 Blood Pressure 113/56 L 134/59 L 125/58 L Pulse Oximetry 95 05/19/18 16:21 05/19/18 17:07 05/19/18 17:09 Temperature Pulse Rate 109 H 115 H 114 H Respiratory Rate 16 20 Blood Pressure 139/75 125/58 L Pulse Oximetry 05/19/18 18:00 05/19/18 19:00 05/19/18 19:13 Temperature 36.5 C Pulse Rate 104 H 104 H 105 H Respiratory Rate 12 46 H 0 L Blood Pressure 125/58 L 157/69 H Pulse Oximetry 100 100 98 05/19/18 19:40 05/19/18 20:00 05/19/18 20:10 Temperature 36.9 C Pulse Rate 104 H 104 H Respiratory Rate 0 L 20 20 Blood Pressure 167/70 H 140/63 Pulse Oximetry 100 100 05/19/18 20:44 05/19/18 21:00 05/19/18 21:02 Temperature Pulse Rate 109 H 108 H Respiratory Rate 20 30 H 19 Blood Pressure 140/103 H 139/64 Pulse Oximetry 99 98 05/19/18 21:15 05/19/18 22:00 05/19/18 22:15 Temperature Pulse Rate 116 H 106 H 106 H Respiratory Rate 41 H 10 L 10 L Blood Pressure 131/72 129/56 L Pulse Oximetry 92 L 97 97 05/19/18 22:26 05/19/18 23:00 05/19/18 23:15 Temperature Pulse Rate 103 H 104 H Respiratory Rate 15 10 L 13 Blood Pressure 133/61 Pulse Oximetry 98 97 05/20/18 00:00 05/20/18 00:15 05/20/18 04:00 Temperature 36.7 C 36.7 C Pulse Rate 102 H 102 H 103 H Respiratory Rate 10 L 10 L 15 Blood Pressure 129/61 129/61 129/61 Pulse Oximetry 97 98 98 05/20/18 04:32 05/20/18 06:00 05/20/18 06:47 Temperature Pulse Rate 106 H 108 H Respiratory Rate 16 11 L 12 Blood Pressure 145/58 H Pulse Oximetry 99 100 05/20/18 07:00 05/20/18 07:47 05/20/18 08:00 Temperature 36.6 C Pulse Rate 107 H 113 H 107 H Respiratory Rate 10 L 23 17 Blood Pressure 151/66 H Pulse Oximetry 100 99 98 05/20/18 08:02 05/20/18 08:47 05/20/18 09:00 Temperature Pulse Rate 110 H 112 H Respiratory Rate 10 L 17 Blood Pressure 126/60 Pulse Oximetry 98 97 98 Intake & Output 05/19/18 05/20/18 05/20/18 18:59 06:59 18:59 Intake Total 1900 / 1900 500 / 500 200 / 200 Output Total 1501 / 1501 Balance 1900 / 1900 -1001 / -1001 200 / 200 Weight 81.1 kg Intake: IV 1100 / 1100 100 / 100 200 / 200 Protonix Inj 80 MG In NS Inj 100 / 100 100 / 100 100 ML @ 10 mls/hr IV.CONT Q10H [facility]ERY Rx#:[id number] NS Inj 1,000 ML @ 100 mls/hr IV 1000 / 1000 .CONT .Q10H VALERY Rx#:[id number] Oral 200 / 200 Anesthesia Amount 200 / 200 Intake (Blood Product) Amt 800 / 800 Rbc As-3 Leukoreduced Unit 0 / 0 [id number] Rbc As-3 Leukoreduced Unit 400 / 400 [id number] Rbc As-3 Leukoreduced Unit 400 / 400 [id number] Output: Urine 1400 / 1400 Urine/Stool Mix / Emesis 100 / 100 Other: # Voids 1 1 Date of Last Bowel Movement 05/18/18 05/20/18 05/20/18 # Bowel Movements 1 1 # Incontinent Bowel Movements 1 Weight On Admission 71.4 kg Result Diagrams: 05/20/18 05:17 05/20/18 05:17 Objective Remarks: GENERAL: elderly female, lying in bed, resting comfortably. HEENT: Normocephalic. Atraumatic. Pupils equal, round, reactive, conjugate. Mucous membranes are moist NECK: Trachea is midline. There is no JVD. CHEST: equal chest rise. nc o2. unlabored. CARDIOVASCULAR: tachycardic rate, regular rhythm. sinus. ABDOMEN: Soft, nontender, nondistended. No guarding. MUSCULOSKELETAL: Pulses 2+. No peripheral edema. NEUROLOGICAL: RASS 0. follows commands. no focal deficits. Assessment and Plan - Assessment and Plan Plan: Assessment: 82yF with amyloidosis and active GI bleed, likely secondary to duodenal source. Now s/p emergent IA embolization. plan for EGD today which I agree with. In discussions with the radiology department, this may be in the 4th portion of the duodenum near the ligament of treitz and thus she may be a better candidate for push enteroscopy to more fully investigate the possible lesion. Keep in ICU. closely watch H&H. Active upper GI bleed- persistent severe acute anemia secondary to blood loss requiring transfusion- persistent possible duodenal ulcer Type II NSTEMI secondary to demand ischemia from severe anemia Plan: - keep in ICU - serially check hgb - transfuse to keep hgb > 7 - EGD today. - watch groin site closely - appreciate GI involvement - am cbc, bmp, mg, phos - ICU electrolyte protocol - GI to guide diet - SCDs Critical care medicine will continue to follow.
--- NOTE | 2018-05-20 10:24 | ECG ---
Date Performed: 05/19/2018 Time Performed: 18:25:59 PTAGE: 82 years EKG: SINUS TACHYCARDIA WITH OCCASIONAL VENTRICULAR PREMATURE COMPLEXES WITH OCCASIONAL SUPRAVENT RICULAR PREMATURE COMPLEXES ABNORMAL RHYTHM ECG PREVIOUS TRACING : 05/19/2018 10.15 DOCTOR: Edgar Way Interpretating Date/Time 05/20/2018 10:23:25
[2018-05-20] MEDS ORDERED: Sodium Chlor 0.9% Inj 250 ML IV.SIG SCH ×3 (11:00→20:00)
[2018-05-20 11:19] LABS: Hematocrit 18.8 % (35.0-46.0); Hemoglobin 6.1 gm/dL (11.6-15.3)
[2018-05-20] MEDS: MethylPREDNISolone Sod Succinate Inj 125 MG/2 ML Vial IV.PUSH SCH ×2 (12:38→23:18)
--- NOTE | 2018-05-20 15:50 | P.PNONC ---
Subjective Interval history: Late entry: Patient seen earlier this a.m. alongside Dr. Alford. Patient lying in bed, no acute distress. She is lethargic. She reports she feels better today than she did yesterday, however she is still with abdominal pain. Objective Vital Signs/Intake & Output: Vital Signs 05/19/18 16:00 05/19/18 16:21 05/19/18 16:37 Temperature 97.7 F 98.6 F Pulse Rate 103 H 109 H 113 H Respiratory Rate 19 16 13 Blood Pressure 125/58 L 139/75 151/66 H Pulse Oximetry 96 05/19/18 17:07 05/19/18 17:09 05/19/18 18:00 Temperature 97.7 F Pulse Rate 115 H 114 H 104 H Respiratory Rate 20 12 Blood Pressure 125/58 L 125/58 L Pulse Oximetry 100 05/19/18 19:00 05/19/18 19:13 05/19/18 19:40 Temperature Pulse Rate 104 H 105 H 104 H Respiratory Rate 46 H 0 L 0 L Blood Pressure 157/69 H 167/70 H Pulse Oximetry 100 98 100 05/19/18 20:00 05/19/18 20:10 05/19/18 20:44 Temperature 98.5 F Pulse Rate 104 H Respiratory Rate 20 20 20 Blood Pressure 140/63 Pulse Oximetry 100 05/19/18 21:00 05/19/18 21:02 05/19/18 21:15 Temperature Pulse Rate 109 H 108 H 116 H Respiratory Rate 30 H 19 41 H Blood Pressure 140/103 H 139/64 131/72 Pulse Oximetry 99 98 92 L 05/19/18 22:00 05/19/18 22:15 05/19/18 22:26 Temperature Pulse Rate 106 H 106 H Respiratory Rate 10 L 10 L 15 Blood Pressure 129/56 L Pulse Oximetry 97 97 05/19/18 23:00 05/19/18 23:15 05/20/18 00:00 Temperature 98.0 F Pulse Rate 103 H 104 H 102 H Respiratory Rate 10 L 13 10 L Blood Pressure 133/61 129/61 Pulse Oximetry 98 97 97 05/20/18 00:15 05/20/18 04:00 05/20/18 04:32 Temperature 98.0 F Pulse Rate 102 H 103 H Respiratory Rate 10 L 15 16 Blood Pressure 129/61 129/61 Pulse Oximetry 98 98 11/28/18 06:00 05/20/18 06:47 05/20/18 07:00 Temperature Pulse Rate 106 H 108 H 107 H Respiratory Rate 11 L 12 10 L Blood Pressure 145/58 H Pulse Oximetry 99 100 100 05/20/18 07:47 05/20/18 08:00 05/20/18 08:02 Temperature 97.8 F Pulse Rate 113 H 107 H Respiratory Rate 23 17 Blood Pressure 151/66 H Pulse Oximetry 99 98 98 05/20/18 08:47 05/20/18 09:00 05/20/18 09:47 Temperature Pulse Rate 110 H 112 H 114 H Respiratory Rate 10 L 17 15 Blood Pressure 126/60 128/69 Pulse Oximetry 97 98 98 05/20/18 09:58 05/20/18 10:00 05/20/18 10:13 Temperature Pulse Rate 113 H 112 H 112 H Respiratory Rate 18 11 L 11 L Blood Pressure 139/63 123/56 L Pulse Oximetry 97 97 97 05/20/18 10:47 05/20/18 11:00 05/20/18 11:47 Temperature Pulse Rate 111 H 112 H 111 H Respiratory Rate 12 11 L 12 Blood Pressure 145/65 H 135/59 L Pulse Oximetry 96 98 98 05/20/18 12:00 05/20/18 12:33 05/20/18 14:05 Temperature 98.9 F 97.7 F 98.3 F Pulse Rate 111 H 116 H 114 H Respiratory Rate 12 22 18 Blood Pressure 137/67 155/66 H Pulse Oximetry 99 98 98 Intake & Output 05/19/18 05/20/18 05/20/18 18:59 06:59 18:59 Intake Total 1900 / 1900 500 / 500 1200 / 1200 Output Total 1501 / 1501 Balance 1900 / 1900 -1001 / -1001 1200 / 1200 Weight 81.1 kg Intake: IV 1100 / 1100 100 / 100 1200 / 1200 Protonix Inj 80 MG In NS Inj 100 / 100 100 / 100 100 ML @ 10 mls/hr IV.CONT Q10H [facility] Rx#:[id number] NS Inj 1,000 ML @ 100 mls/hr IV 1000 / 1000 1000 / 1000 .CONT .Q10H VALERY Rx#:[id number] Oral 200 / 200 Anesthesia Amount 200 / 200 Intake (Blood Product) Amt 800 / 800 0 / 0 Rbc As-3 Leukoreduced Unit 0 / 0 [id number] Rbc As-3 Leukoreduced Unit 400 / 400 [id number] Rbc As-3 Leukoreduced Unit 400 / 400 [id number] Rbc As-3 Leukoreduced Unit 0 / 0 [id number] Rbc As-3 Leukoreduced Unit 0 / 0 [id number] Output: Urine 1400 / 1400 Urine/Stool Mix / Emesis 100 / 100 Other: # Voids 1 1 Date of Last Bowel Movement 05/18/18 05/20/18 05/20/18 # Bowel Movements 1 1 # Incontinent Bowel Movements 1 Weight On Admission 71.4 kg Result Diagrams: 05/20/18 16:44 05/20/18 05:17 Laboratory Results: Laboratory Results - last 24 hr 05/17/18 05/18/18 05/19/18 09:15 07:24 07:00 WBC RBC Hgb Hct MCV MCH MCHC RDW Plt Count MPV Prelim Diff (Auto) Neut % (Auto) Lymph % (Auto) [place] % (Auto) Eos % (Auto) Baso % (Auto) Neut # (Auto) Lymph # (Auto) [place] # (Auto) Eos # (Auto) Baso # (Auto) WBC Differential Diff Scan Seg Neuts % (Manual) Band Neuts % (Manual) Lymphocytes % (Manual) Monocytes % (Manual) Abs Neuts (Manual) Nucleated RBCs/100 WBC Differential Comment Platelet Estimate Platelet Morphology Acanthocytes (Spur) PT INR APTT Fibrinogen Puncture Site Patient Temperature O2 Saturation ABG pH ABG pCO2 ABG pO2 ABG HCO3 ABG O2 Content ABG Base Excess ABG Methemoglobin [place] Test Hemoglobin Carboxyhemoglobin O2 Delivery Device Liter Flow Vent Setting Inspired O2 Critical Value Sodium Potassium Chloride Carbon Dioxide Anion Gap BUN Creatinine Estimated GFR Random Glucose Calcium Calcium Adj for Albumin Phosphorus Magnesium Total Bilirubin AST ALT Alkaline Phosphatase Total Protein Albumin Blood Type Antibody Screen MTS Gel Crossmatch See Detail See Detail See Detail Bld Prod Order Comment 05/19/18 05/19/18 05/19/18 16:45 16:45 16:45 WBC 12.6 H RBC 2.56 L Hgb 7.9 L D Hct 22.4 L MCV 87.4 D MCH 31.1 MCHC 35.6 RDW 15.8 Plt Count MPV 9.5 Prelim Diff (Auto) Slide review pending Neut % (Auto) 83.6 H Lymph % (Auto) 8.0 L [place] % (Auto) 7.9 Eos % (Auto) 0.3 Baso % (Auto) 0.2 Neut # (Auto) 10.5 H Lymph # (Auto) 1.0 [place] # (Auto) 1.0 H Eos # (Auto) 0.0 Baso # (Auto) 0.0 WBC Differential Manual diff final Diff Scan Seg Neuts % (Manual) 88 H Band Neuts % (Manual) 5 Lymphocytes % (Manual) 6 L Monocytes % (Manual) 1 Abs Neuts (Manual) 11.7 H Nucleated RBCs/100 WBC 1 H Differential Comment . Platelet Estimate Low L Platelet Morphology Enlarged H Acanthocytes (Spur) Occ H PT 11.1 INR 1.1 APTT 33.6 H Fibrinogen Puncture Site Patient Temperature O2 Saturation ABG pH ABG pCO2 ABG pO2 ABG HCO3 ABG O2 Content ABG Base Excess ABG Methemoglobin [place] Test Hemoglobin Carboxyhemoglobin O2 Delivery Device Liter Flow Vent Setting Inspired O2 Critical Value Sodium Potassium Chloride Carbon Dioxide Anion Gap BUN Creatinine Estimated GFR Random Glucose Calcium Calcium Adj for Albumin Phosphorus Magnesium Total Bilirubin AST ALT Alkaline Phosphatase Total Protein Albumin Blood Type Antibody Screen MTS Gel Crossmatch Bld Prod Order Comment 05/19/18 05/19/18 05/20/18 17:02 17:02 05:17 WBC 19.7 H D RBC 2.48 L Hgb 7.4 L Hct 21.9 L MCV 88.2 MCH 30.0 MCHC 34.0 RDW 15.4 Plt Count 29 L MPV 11.1 H Prelim Diff (Auto) Slide review pending Neut % (Auto) 95.2 H Lymph % (Auto) 2.9 L [place] % (Auto) 1.7 Eos % (Auto) 0.0 Baso % (Auto) 0.2 Neut # (Auto) 18.8 H Lymph # (Auto) 0.6 L [place] # (Auto) 0.3 Eos # (Auto) 0.0 Baso # (Auto) 0.0 WBC Differential . Diff Scan Auto diff confirmed Seg Neuts % (Manual) Band Neuts % (Manual) Lymphocytes % (Manual) Monocytes % (Manual) Abs Neuts (Manual) Nucleated RBCs/100 WBC Differential Comment . Platelet Estimate Low L Platelet Morphology Enlarged H Acanthocytes (Spur) PT INR APTT Fibrinogen Puncture Site Unknown Cancelled Patient Temperature 98.6 Cancelled O2 Saturation 92 Cancelled ABG pH 7.32 L Cancelled ABG pCO2 50 H Cancelled ABG pO2 74 Cancelled ABG HCO3 25 Cancelled ABG O2 Content 10.5 L Cancelled ABG Base Excess -0.8 Cancelled ABG Methemoglobin 0.6 Cancelled [place] Test Cancelled Hemoglobin 8.0 L Cancelled Carboxyhemoglobin 1.5 Cancelled O2 Delivery Device Cancelled Liter Flow Cancelled Vent Setting Cancelled Inspired O2 21 Cancelled Critical Value No Cancelled Sodium Potassium Chloride Carbon Dioxide Anion Gap BUN Creatinine Estimated GFR Random Glucose Calcium Calcium Adj for Albumin Phosphorus Magnesium Total Bilirubin AST ALT Alkaline Phosphatase Total Protein Albumin Blood Type Antibody Screen MTS Gel Crossmatch Bld Prod Order Comment 05/20/18 05/20/18 05/20/18 05:17 05:17 10:45 WBC RBC Hgb 6.1 L* Hct 18.8 L* MCV MCH MCHC RDW Plt Count MPV Prelim Diff (Auto) Neut % (Auto) Lymph % (Auto) [place] % (Auto) Eos % (Auto) Baso % (Auto) Neut # (Auto) Lymph # (Auto) [place] # (Auto) Eos # (Auto) Baso # (Auto) WBC Differential Diff Scan Seg Neuts % (Manual) Band Neuts % (Manual) Lymphocytes % (Manual) Monocytes % (Manual) Abs Neuts (Manual) Nucleated RBCs/100 WBC Differential Comment Platelet Estimate Platelet Morphology Acanthocytes (Spur) PT 10.6 INR 1.0 APTT 26.7 D Fibrinogen 285 Puncture Site Patient Temperature O2 Saturation ABG pH ABG pCO2 ABG pO2 ABG HCO3 ABG O2 Content ABG Base Excess ABG Methemoglobin [place] Test Hemoglobin Carboxyhemoglobin O2 Delivery Device Liter Flow Vent Setting Inspired O2 Critical Value Sodium 143 Potassium 4.5 Chloride 114 H Carbon Dioxide 24.1 Anion Gap 5 BUN 23 H Creatinine 0.76 Estimated GFR 73 L Random Glucose 164 H Calcium 6.8 L* Calcium Adj for Albumin 8.5 Phosphorus 2.8 Magnesium 1.8 Total Bilirubin 0.2 AST 18 ALT 14 Alkaline Phosphatase 45 Total Protein 4.0 L Albumin 1.8 L Blood Type Antibody Screen MTS Gel Crossmatch Bld Prod Order Comment 05/20/18 05/20/18 05/20/18 10:55 11:34 15:20 WBC RBC Hgb Hct MCV MCH MCHC RDW Plt Count MPV Prelim Diff (Auto) Neut % (Auto) Lymph % (Auto) [place] % (Auto) Eos % (Auto) Baso % (Auto) Neut # (Auto) Lymph # (Auto) [place] # (Auto) Eos # (Auto) Baso # (Auto) WBC Differential Diff Scan Seg Neuts % (Manual) Band Neuts % (Manual) Lymphocytes % (Manual) Monocytes % (Manual) Abs Neuts (Manual) Nucleated RBCs/100 WBC Differential Comment Platelet Estimate Platelet Morphology Acanthocytes (Spur) PT INR APTT Fibrinogen Puncture Site Patient Temperature O2 Saturation ABG pH ABG pCO2 ABG pO2 ABG HCO3 ABG O2 Content ABG Base Excess ABG Methemoglobin [place] Test Hemoglobin Carboxyhemoglobin O2 Delivery Device Liter Flow Vent Setting Inspired O2 Critical Value Sodium Potassium Chloride Carbon Dioxide Anion Gap BUN Creatinine Estimated GFR Random Glucose Calcium Calcium Adj for Albumin Phosphorus Magnesium Total Bilirubin AST ALT Alkaline Phosphatase Total Protein Albumin Blood Type O Positive Antibody Screen Negative MTS Gel Crossmatch See Detail See Detail Bld Prod Order Comment Imaging Studies: Impressions GI Bleed Scan Nuclear Medicine 05/19/18 00:00 CONCLUSION: 1. 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 Patient was emergently brought to the interventional radiology department from the nuclear medicine department for angiography and intervention. Mesenteric Arteriogram 05/19/18 14:37 CONCLUSION: 1. 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 2. 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 Medications: Active Medications Generic Name Dose Route Start Last Admin Trade Name Freq PRN Reason Stop Dose Admin Hydrocodone Bitart/Acetaminophen 1 tab 05/19/18 10:01 05/19/18 13:15 [place] 5/325 PO 1 tab Q6H PRN Administration Pain 2-5 Hydrocodone Bitart/Acetaminophen 1 tab 05/19/18 10:01 05/19/18 20:10 [place] 10/325 PO 1 tab Q6H PRN Administration Pain 6-10 Hydromorphone HCl 2 mg 05/19/18 21:41 05/20/18 07:50 Dilaudid Pf Inj IV.PUSH 2 mg Q4H PRN Administration PAIN SCALE 6 -10 Sodium Chloride 1,000 mls @ 100 mls/hr 05/17/18 06:15 05/20/18 14:18 Ns Inj IV.CONT 100 mls/hr .Q10H [facility]ERY Administration Pantoprazole Sodium 80 mg/ 100 mls @ 10 mls/hr 05/17/18 09:00 05/20/18 08:07 Sodium Chloride IV.CONT Not Given Q10H VALERY Sodium Chloride 500 mls @ 30 mls/hr 05/18/18 07:00 05/18/18 07:00 Ns Inj IV.SIG Not Given .Q10H VALERY Sodium Chloride 250 mls @ 15 mls/hr 05/20/18 11:00 05/20/18 12:36 Ns Inj IV.SIG 05/21/18 03:39 15 mls/hr ONCE VALERY Administration Lidocaine HCl 2 patch 05/19/18 09:30 05/20/18 08:08 Lidoderm 5% Patch.12 Hr T-DERMAL 2 patch DAILY VALERY Administration Methylprednisolone Sodium Succinate 60 mg 05/19/18 23:00 05/20/18 12:38 Solumedrol Inj IV.PUSH 60 mg Q12H VALERY Administration Ondansetron HCl 4 mg 05/17/18 06:10 05/19/18 13:17 Zofran Inj IV.PUSH 4 mg Q6H PRN Administration NAUSEA OR VOMITING Patch Removal 1 each 05/19/18 21:00 05/20/18 08:08 Remove Old Patch T-DERMAL 1 each BID VALERY Administration Prochlorperazine Edisylate 10 mg 05/17/18 09:06 05/19/18 00:08 Compazine Inj IV.PUSH 10 mg Q6H PRN Administration NAUSEA Senna/Docusate Sodium 1 tab 05/17/18 09:00 05/20/18 08:07 Jessie-Colace PO 1 tab BID VALERY Administration Objective Remarks: GENERAL: Elderly female patient, in no acute distress.+ Lethargic. SKIN: Warm and dry. HEAD: Normocephalic. EYES: No scleral icterus. No injection or drainage. NECK: Supple, trachea midline. CARDIOVASCULAR: Regular rate and rhythm without murmurs. RESPIRATORY: Breath sounds equal bilaterally. No accessory muscle use. GASTROINTESTINAL: Abdomen soft,tender epigastrium, nondistended. EXTREMITIES: No cyanosis, or edema. MUSCULOSKELETAL: Increased muscle tone. NEUROLOGICAL: No obvious focal deficit. Awake, lethargic, and oriented x3. PSYCHIATRIC: Appropriate mood and affect; insight and judgment normal. Assessment/Plan - Plan Ms. Perea is a pleasant 82-year-old lady with a history of lung cancer, multifocal amyloidosis, lymphomoplasmacytic disorder and now gastrointestinal bleeding. Plan: 1. Continue support with blood products. 2. Severe thrombocytopenia, possibly an autoimmune process continue IV steroids. Platelet count 29,000 today. 3. Hemoglobin this a.m. 7.4gm/dL. Repeat hemoglobin at 10:45 6.1gm/dL, per passenger booking clerk notes patient will have repeat EGD today. 4. Continue supportive blood transfusions. Will repeat CBC in the a.m. - Attending Statement The exam, history, and the medical decision-making described in the above note were completed with the assistance of the mid-level provider. I reviewed and agree with the findings presented. I attest that I had a [id number] encounter with the patient on the same day, and personally performed and documented my assessment and findings in the medical record. Patient has significant thrombocytopenia without DIC. This suggests an autoimmune process. No evidence of TTP. Will continue steroids. The thrombocytopenia does not explain the pain nor does it explain the degree of bleeding.
[2018-05-20] MEDS ORDERED: Sodium Chlor 0.9% Inj 250 ML IV.SIG ONE (16:00)
[2018-05-20] MEDS ORDERED: *Heparin Central Flush 100 UNIT/ML 5 ML Vial PERIprocedural ONLY IV.FLUSH ONE (16:08)
[2018-05-20] MEDS ORDERED: Heparin Central Flush 100 UNIT/ML 5 ML Vial IV.FLUSH PRN (16:43)
--- NOTE | 2018-05-20 16:45 | P.RAD ---
Post PICC Progress Note - Pre Procedure Diagnosis (1) GI bleed - Post Procedure Diagnosis (1) GI bleed - Procedure Procedure: right PICC line placement Procedure Date: 05/20/18 Supervising Radiologist: Wang Scott Jr, MD Proceduralist/Assist: Citlali Kerr - Device Side: right [place]: 5 Device: dual lumen Catheter: Power PICC Specimen: Blood draw from PICC line sent to lab. Purple top tube. - Plan of Activity Patient to Unit: Other
[2018-05-20 16:58] LABS: Hematocrit 25.2 % (35.0-46.0); Hemoglobin 8.7 gm/dL (11.6-15.3)
--- NOTE | 2018-05-20 18:09 | P.PCN ---
Date of procedure: 05/20/18 Procedure: THANK YOU FOR THE REFERRAL Indication; GI bleed, possible ischemia versus recurrent bleeding from diverticulum Procedure Performed; enteroscopy After informing the patient about procedure and possible complications consent was signed. history and physical were updated. Patient was taken to the procedure room and placed in position. Time out was completed. Adequate sedation was performed by anesthesia provider. Upper Endoscopy, the scope was placed in the mouth advanced under video guide to the second portion of the duodenum, and proximal jejunum then the scope was withdrawal to the stomach and retro-flexion was performed, the scope was withdrawal to the esophagus then out of the mouth without any immediate complication Findings; Esophagus: Normal Stomach full of blood Duodenum full of blood Proximal jejunum full of blood the mucosa looked ischemic with discoloration and grayish mucosa Very critical prognosis Recommendations; 1- Supportive care 2-CT of the abdomen 3-surgical consult, I discussed the case with Dr. James and he is going to come and see the patient 4-n.p.o. 5-packed RBC and platelets as needed 6-monitor H&H
--- NOTE | 2018-05-20 18:59 | CT ---
EXAM DATE: 05/20/2018 6:42 PM EST AGE/SEX: 82 years / Female INDICATIONS: Abdominal pain post esophagogastroduodenoscopy. 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 CLINICAL DATA: This is the patient's initial encounter. Patient reports that signs and symptoms have been present for 1 day and indicates a pain score of Nonresponsive. MEDICAL/SURGICAL HISTORY: . Unobtainable. . Lobectomy. Cardiac stent. RADIATION DOSE: 17.00 CTDI (mGy) COMPARISON: [facility] – [place] ABDOMEN & PELVIS W CONTRAST, 05/17/2018. . TECHNIQUE: Multiple contiguous axial images were obtained through the abdomen. Images were obtained using multiple row detector helical technique. Using automated exposure control and adjustment of the mA and/or kV according to patient size, radiation dose was kept as low as reasonably achievable to o btain optimal diagnostic quality images. DICOM format image data is available electronically for rev iew and comparison. FINDINGS: Lower Lungs: There are small bilateral pleural effusions with areas of mild consolidative opacity in both posterior lung bases. Liver: The liver has a homogeneous density without space-occupying lesion. There is no dilation of th e biliary tree. Spleen: Homogeneous density without enlargement. Pancreas: Unremarkable without mass or calcification. Kidneys: Normal in size and shape. No evidence of mass or hydronephrosis. There is a 7 mm nonobstruc ting left renal calculus in the lower pole. The smaller less than 1 mm calculus as well. Adrenal Glands: Unremarkable. Aorta: The aorta and proximal iliac vessels are grossly unremarkable without aneurysmal dilation. Bowel/Mesentery: No oral contrast was given limiting the sensitivity of the exam. There are multiple loops of nondilated air-containing small bowel with multiple small air-fluid levels. Gas and stool i s noted segmentally in the colon. The embolization coils are noted along the lesser curvature the sto mach. There is no focal bowel wall thickening or inflammatory change. There is no pneumatosis. Multip le diverticuli present in the sigmoid colon. There is no free air or fluid. Abdominal Wall: Intact. Retroperitoneum: No evidence of adenopathy in the retrocrural, para-aortic, or deep pelvic regions. Bladder: Contours are smooth. Reproductive Organs: No abnormal masses or calcifications seen. Inguinal: The inguinal region is unremarkable without evidence of adenopathy. Bony Structures: Unremarkable. CONCLUSION: 1. Nonspecific, nonobstructive bowel gas pattern which may represent a mild ileus or be related to t he recent endoscopy and insufflation of air. There is no focal wall thickening or inflammatory change . There is no free air or fluid. 2. Nonobstructing left renal calculi. 3. Small effusions and mild consolidative opacity in both lung bases. Electronically signed by: Gerard Polanco MD 05/20/2018 6:58 PM EST
--- NOTE | 2018-05-20 19:04 | P.CONGS ---
[facility] Gen Surgery Consult Note Consult date: 05/20/18 (Emergent) Reason for consult: abdominal pain Narrative: I was asked to see this patient emergently by Dr. Caro Beverly the patient's back tender cloth printing. Apparently the patient came to the emergency department with complaints of abdominal pain. Workup ultimately demonstrated a low hemoglobin and hematocrit and etiology of the GI bleed was to be determined. 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 Supportive transfusions were performed in a nuclear medicine bleeding scan demonstrated the most likely site of the bleeding to be in the diverticulum. Patient went upper endoscopy he had a large amount of fresh blood within the stomach and duodenum was noted. No source was identified. Patient underwent angiography with embolization of pancreaticoduodenal vessel that appeared to supply the area of the bleed. Following Gelfoam and coil embolization no further bleeding was identified. The patient unfortunately continued to have blood loss is evidence of upper and lower GI bleeding. Repeat upper endoscopy today by the back tender cloth printing demonstrated a large amount of blood within the stomach and duodenum and a grayish ischemic appearing mucosa consistent with a history of embolization. The patient was received 2 units of packed red blood cells earlier today and posttransfusion hemoglobin was 8.7. The platelet count was 29,000 and since then the patient is received 1 pack of platelets. She is endotracheally intubated in the intensive care unit being supported by the critical care team. Upon my arrival the patient is intubated and not responsive. There is bloody mucousy drainage coming out in her mouth around the endotracheal tube. There is no blood within the endotracheal tube. Her pupils are 2 round and nonreactive to light her sclerae are anicteric. Her neck is supple her trachea is midline. She has equal bilateral breath sounds and her heart sounds demonstrate a mild sinus tachycardia. There is no obvious murmur rub or gallop. Her breasts appear normal without obvious skin changes or masses. Her abdomen is moderately large and protuberant. It is mildly distended. She has 2 large rectangular lidocaine patches on her abdominal skin due to chronic abdominal pain. These sit in the upper and right and left abdomen. She has a healed lower midline incisional scar. There are no obvious hernias. Her extremities show mild edema. She has no long bone deformities. Neurologically she is ventilated and sedated. 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 - Surgical History Surgical History: Surgical History (Last Reviewed 05/20/18 @ 08:43 by Alec Monroy) History of heart artery stent Status post lobectomy of lung - Family History Family History: Family History (Last Reviewed 05/19/18 @ 21:35 by Benjie Dejesus MD) Other Osteoarthritis - Tobacco History Second Hand Smoke Exposure: No Tobacco Use In Past 30 Days: No Smoking Status: Former smoker Tobacco Type: Cigarettes - Alcohol History How Often Do You Have a Drink Containing Alcohol: Never - Substance Use History Substance History: No History of Abuse - Travel History Recent Travel in the [place] Within the Last 8 Weeks: No Recent Travel Out of the Country Within the Last 8 Weeks: No - Immunization History Tetanus Immunization: <5 Years Hx Influenza Vaccine This Season: No Medications and Allergies Active Medications: Active Medications Acetaminophen (Tylenol) 650 mg PO Q4H PRN PRN Reason: Temp > 100.4 Hydrocodone Bitart/Acetaminophen ([place] 5/325) 1 tab PO Q6H PRN PRN Reason: Pain 2-5 Last Admin: 05/19/18 13:15 Dose: 1 tab Hydrocodone Bitart/Acetaminophen ([place] 10/325) 1 tab PO Q6H PRN PRN Reason: Pain 6-10 Last Admin: 05/19/18 20:10 Dose: 1 tab Al Hydroxide/Mg Hydroxide (Milk Of Dotty Liq) 30 ml PO Q12H PRN PRN Reason: Mild Constipation Bisacodyl (Dulcolax Supp) 10 mg RECTAL DAILY PRN PRN Reason: SEVERE CONSITIPATION Heparin Sodium (Porcine) (Heparin Central Flush) 0 unit IV.FLUSH DAILY VALERY Heparin Sodium (Porcine) (Heparin Central Flush) 0 unit IV.FLUSH PRN PRN PRN Reason: Flush PICC Line Hydromorphone HCl (Dilaudid Pf Inj) 2 mg IV.PUSH Q4H PRN PRN Reason: PAIN SCALE 6 -10 Last Admin: 05/20/18 16:00 Dose: 2 mg Sodium Chloride (Ns Inj) 1,000 mls @ 100 mls/hr IV.CONT .Q10H VALERY Last Admin: 05/20/18 14:18 Dose: 100 mls/hr Pantoprazole Sodium 80 mg/ (Sodium Chloride) 100 mls @ 10 mls/hr IV.CONT Q10H [facility] Last Admin: 05/20/18 08:07 Dose: Not Given Sodium Chloride (Ns Inj) 500 mls @ 30 mls/hr IV.SIG .Q10H [facility] Last Admin: 05/18/18 07:00 Dose: Not Given Sodium Chloride (Ns Inj) 250 mls @ 15 mls/hr IV.SIG ONCE VALERY Stop: 05/21/18 03:39 Last Admin: 05/20/18 12:36 Dose: 15 mls/hr Sodium Chloride (Ns Inj) 250 mls @ 15 mls/hr IV.SIG ONCE ONE Stop: 05/21/18 08:39 Lactulose (Lactulose Liq) 30 ml PO DAILY PRN PRN Reason: SEVERE CONSITIPATION Lidocaine HCl (Lidoderm 5% Patch.12 Hr) 2 patch T-DERMAL DAILY [facility] Last Admin: 05/20/18 08:08 Dose: 2 patch Methylprednisolone Sodium Succinate (Solumedrol Inj) 60 mg IV.PUSH Q12H [facility] Last Admin: 05/20/18 12:38 Dose: 60 mg Ondansetron HCl (Zofran Inj) 4 mg IV.PUSH Q6H PRN PRN Reason: NAUSEA OR VOMITING Last Admin: 05/19/18 13:17 Dose: 4 mg Patch Removal (Remove Old Patch) 1 each T-DERMAL BID [facility] Last Admin: 05/20/18 08:08 Dose: 1 each Prochlorperazine Edisylate (Compazine Inj) 10 mg IV.PUSH Q6H PRN PRN Reason: NAUSEA Last Admin: 05/19/18 00:08 Dose: 10 mg Senna/Docusate Sodium (Jessie-Colace) 1 tab PO BID [facility] Last Admin: 05/20/18 08:07 Dose: 1 tab Sennosides (Senokot) 17.2 mg PO Q12H PRN PRN Reason: Moderate Constipation Sodium Chloride (Ns Flush) 0 ml IV.FLUSH DAILY [facility] Sodium Chloride (Ns Flush) 0 ml IV.FLUSH PRN PRN PRN Reason: FLUSH AFTER USING IV ACCESS Sodium Chloride (Ns Flush) 0 ml IV.FLUSH PRN PRN PRN Reason: Flush After Blood Draws Allergies Allergy/AdvReac Type Severity Reaction Status Date / Time Sulfa (Sulfonamide Allergy Severe Anaphylaxis Verified 05/17/18 03:34 Antibiotics) amoxicillin Allergy Mild nausea Verified 05/17/18 03:34 codeine Allergy Mild constipatio Verified 05/17/18 03:34 n Home Medications Medication Instructions Recorded Confirmed Type amlodipine 5 mg PO DAILY 03/17/18 05/17/18 History aspirin [Aspirin Low Dose] 1 tab PO DAILY 03/17/18 05/17/18 History finasteride 1 mg PO DAILY 03/17/18 05/17/18 History isosorbide mononitrate 30 mg PO DAILY 03/17/18 05/17/18 History pantoprazole 20 mg PO BID 03/18/18 05/17/18 History hydrocodone-acetaminophen 1 tab PO Q4-6H PRN 05/17/18 05/17/18 History lisinopril 10 mg PO DAILY 05/17/18 05/17/18 History Exam Vital signs: Vital Signs 05/19/18 19:00 05/19/18 19:13 05/19/18 19:40 Temperature Pulse Rate 104 H 105 H 104 H Respiratory Rate 46 H 0 L 0 L Blood Pressure 157/69 H 167/70 H Pulse Oximetry 100 98 100 05/19/18 20:00 05/19/18 20:10 05/19/18 20:44 Temperature 98.5 F Pulse Rate 104 H Respiratory Rate 20 20 20 Blood Pressure 140/63 Pulse Oximetry 100 05/19/18 21:00 05/19/18 21:02 05/19/18 21:15 Temperature Pulse Rate 109 H 108 H 116 H Respiratory Rate 30 H 19 41 H Blood Pressure 140/103 H 139/64 131/72 Pulse Oximetry 99 98 92 L 05/19/18 22:00 05/19/18 22:15 05/19/18 22:26 Temperature Pulse Rate 106 H 106 H Respiratory Rate 10 L 10 L 15 Blood Pressure 129/56 L Pulse Oximetry 97 97 05/19/18 23:00 05/19/18 23:15 05/20/18 00:00 Temperature 98.0 F Pulse Rate 103 H 104 H 102 H Respiratory Rate 10 L 13 10 L Blood Pressure 133/61 129/61 Pulse Oximetry 98 97 97 05/20/18 00:15 05/20/18 04:00 05/20/18 04:32 Temperature 98.0 F Pulse Rate 102 H 103 H Respiratory Rate 10 L 15 16 Blood Pressure 129/61 129/61 Pulse Oximetry 98 98 05/20/18 06:00 05/20/18 06:47 05/20/18 07:00 Temperature Pulse Rate 106 H 108 H 107 H Respiratory Rate 11 L 12 10 L Blood Pressure 145/58 H Pulse Oximetry 99 100 100 05/20/18 07:47 05/20/18 08:00 05/20/18 08:02 Temperature 97.8 F Pulse Rate 113 H 107 H Respiratory Rate 23 17 Blood Pressure 151/66 H Pulse Oximetry 99 98 98 05/20/18 08:47 05/20/18 09:00 05/20/18 09:47 Temperature Pulse Rate 110 H 112 H 114 H Respiratory Rate 10 L 17 15 Blood Pressure 126/60 128/69 Pulse Oximetry 97 98 98 05/20/18 09:58 05/20/18 10:00 05/20/18 10:13 Temperature Pulse Rate 113 H 112 H 112 H Respiratory Rate 18 11 L 11 L Blood Pressure 139/63 123/56 L Pulse Oximetry 97 97 97 05/20/18 10:47 05/20/18 11:00 05/20/18 11:47 Temperature Pulse Rate 111 H 112 H 111 H Respiratory Rate 12 11 L 12 Blood Pressure 145/65 H 135/59 L Pulse Oximetry 96 98 98 05/20/18 12:00 05/20/18 12:32 05/20/18 12:33 Temperature 98.9 F 97.7 F Pulse Rate 111 H 112 H 116 H Respiratory Rate 12 12 22 Blood Pressure 137/67 137/67 Pulse Oximetry 99 96 98 05/20/18 12:47 05/20/18 13:00 05/20/18 13:30 Temperature 98.3 F Pulse Rate 112 H 118 H 109 H Respiratory Rate 16 13 12 Blood Pressure 151/66 H 135/63 Pulse Oximetry 94 L 92 L 99 05/20/18 14:00 05/20/18 14:05 05/20/18 14:07 Temperature 98.3 F Pulse Rate 113 H 114 H 115 H Respiratory Rate 16 18 18 Blood Pressure 153/67 H 155/66 H 155/66 H Pulse Oximetry 97 98 99 05/20/18 14:30 05/20/18 15:00 11/28/18 15:30 Temperature Pulse Rate 113 H 114 H 112 H Respiratory Rate 13 18 22 Blood Pressure 157/72 H 167/79 H 200/86 H Pulse Oximetry 97 99 98 05/20/18 17:03 05/20/18 18:48 Temperature 98.3 F Pulse Rate 112 H Respiratory Rate 18 14 Blood Pressure 156/85 H Pulse Oximetry 96 100 Intake & Output 05/19/18 05/20/18 05/20/18 18:59 06:59 18:59 Intake Total 1900 / 1900 500 / 500 1400 / 1400 Output Total 1501 / 1501 200 / 200 Balance 1900 / 1900 -1001 / -1001 1200 / 1200 Weight 81.1 kg Intake: IV 1100 / 1100 100 / 100 1200 / 1200 Protonix Inj 80 MG In NS Inj 100 / 100 100 / 100 100 ML @ 10 mls/hr IV.CONT Q10H [facility] Rx#:[id number] NS Inj 1,000 ML @ 100 mls/hr IV 1000 / 1000 1000 / 1000 .CONT .Q10H [facility]ERY Rx#:[id number] Oral 200 / 200 200 / 200 Anesthesia Amount 200 / 200 Intake (Blood Product) Amt 800 / 800 0 / 0 Plt Pheresis B Leukoreduced 0 / 0 Unit [id number] Rbc As-3 Leukoreduced Unit 0 / 0 [id number] Rbc As-3 Leukoreduced Unit 400 / 400 [id number] Rbc As-3 Leukoreduced Unit 400 / 400 [id number] Rbc As-3 Leukoreduced Unit 0 / 0 [id number] Rbc As-3 Leukoreduced Unit 0 / 0 [id number] Output: Urine 1400 / 1400 Urine/Stool Mix 1 / Emesis 100 / 100 200 / 200 Other: # Voids 1 1 2 Date of Last Bowel Movement 05/18/18 05/20/18 05/20/18 # Bowel Movements 1 1 0 # Incontinent Bowel Movements 1 Weight On Admission 71.4 kg Narrative: Please see history of present illness where the physical exam was dictated into the HPI thank you Results - Labs 05/20/18 16:44 05/20/18 05:17 Laboratory Results - last 24 hr 05/17/18 05/18/18 05/19/18 09:15 07:24 07:00 WBC RBC Hgb Hct MCV MCH MCHC RDW Plt Count MPV Prelim Diff (Auto) Neut % (Auto) Lymph % (Auto) Rabun % (Auto) Eos % (Auto) Baso % (Auto) Neut # (Auto) Lymph # (Auto) Rabun # (Auto) Eos # (Auto) Baso # (Auto) WBC Differential Diff Scan Differential Comment Platelet Estimate Platelet Morphology PT INR APTT Fibrinogen Puncture Site Patient Temperature O2 Saturation ABG pH ABG pCO2 ABG pO2 ABG HCO3 ABG O2 Content ABG Base Excess ABG Methemoglobin [place] Test Hemoglobin Carboxyhemoglobin O2 Delivery Device Liter Flow Vent Setting Inspired O2 Critical Value Sodium Potassium Chloride Carbon Dioxide Anion Gap BUN Creatinine Estimated GFR Random Glucose Calcium Calcium Adj for Albumin Phosphorus Magnesium Total Bilirubin AST ALT Alkaline Phosphatase Total Protein Albumin Blood Type Antibody Screen MTS Gel Crossmatch See Detail See Detail See Detail Bld Prod Order Comment 05/19/18 05/20/18 05/20/18 17:02 05:17 05:17 WBC 19.7 H D RBC 2.48 L Hgb 7.4 L Hct 21.9 L MCV 88.2 MCH 30.0 MCHC 34.0 RDW 15.4 Plt Count 29 L MPV 11.1 H Prelim Diff (Auto) Slide review pending Neut % (Auto) 95.2 H Lymph % (Auto) 2.9 L Rabun % (Auto) 1.7 Eos % (Auto) 0.0 Baso % (Auto) 0.2 Neut # (Auto) 18.8 H Lymph # (Auto) 0.6 L Rabun # (Auto) 0.3 Eos # (Auto) 0.0 Baso # (Auto) 0.0 WBC Differential . Diff Scan Auto diff confirmed Differential Comment . Platelet Estimate Low L Platelet Morphology Enlarged H PT INR APTT Fibrinogen Puncture Site Cancelled Patient Temperature Cancelled O2 Saturation Cancelled ABG pH Cancelled ABG pCO2 Cancelled ABG pO2 Cancelled ABG HCO3 Cancelled ABG O2 Content Cancelled ABG Base Excess Cancelled ABG Methemoglobin Cancelled [place] Test Cancelled Hemoglobin Cancelled Carboxyhemoglobin Cancelled O2 Delivery Device Cancelled Liter Flow Cancelled Vent Setting Cancelled Inspired O2 Cancelled Critical Value Cancelled Sodium 143 Potassium 4.5 Chloride 114 H Carbon Dioxide 24.1 Anion Gap 5 BUN 23 H Creatinine 0.76 Estimated GFR 73 L Random Glucose 164 H Calcium 6.8 L* Calcium Adj for Albumin 8.5 Phosphorus 2.8 Magnesium 1.8 Total Bilirubin 0.2 AST 18 ALT 14 Alkaline Phosphatase 45 Total Protein 4.0 L Albumin 1.8 L Blood Type Antibody Screen MTS Gel Crossmatch Bld Prod Order Comment 05/20/18 05/20/18 05/20/18 05:17 10:45 10:55 WBC RBC Hgb 6.1 L* Hct 18.8 L* MCV MCH MCHC RDW Plt Count MPV Prelim Diff (Auto) Neut % (Auto) Lymph % (Auto) Rabun % (Auto) Eos % (Auto) Baso % (Auto) Neut # (Auto) Lymph # (Auto) Rabun # (Auto) Eos # (Auto) Baso # (Auto) WBC Differential Diff Scan Differential Comment Platelet Estimate Platelet Morphology PT 10.6 INR 1.0 APTT 26.7 D Fibrinogen 285 Puncture Site Patient Temperature O2 Saturation ABG pH ABG pCO2 ABG pO2 ABG HCO3 ABG O2 Content ABG Base Excess ABG Methemoglobin [place] Test Hemoglobin Carboxyhemoglobin O2 Delivery Device Liter Flow Vent Setting Inspired O2 Critical Value Sodium Potassium Chloride Carbon Dioxide Anion Gap BUN Creatinine Estimated GFR Random Glucose Calcium Calcium Adj for Albumin Phosphorus Magnesium Total Bilirubin AST ALT Alkaline Phosphatase Total Protein Albumin Blood Type O Positive Antibody Screen Negative MTS Gel Crossmatch See Detail Bld Prod Order Comment 05/20/18 05/20/18 05/20/18 10:55 11:34 15:20 WBC RBC Hgb Hct MCV MCH MCHC RDW Plt Count MPV Prelim Diff (Auto) Neut % (Auto) Lymph % (Auto) Rabun % (Auto) Eos % (Auto) Baso % (Auto) Neut # (Auto) Lymph # (Auto) Rabun # (Auto) Eos # (Auto) Baso # (Auto) WBC Differential Diff Scan Differential Comment Platelet Estimate Platelet Morphology PT INR APTT Fibrinogen Puncture Site Patient Temperature O2 Saturation ABG pH ABG pCO2 ABG pO2 ABG HCO3 ABG O2 Content ABG Base Excess ABG Methemoglobin [place] Test Hemoglobin Carboxyhemoglobin O2 Delivery Device Liter Flow Vent Setting Inspired O2 Critical Value Sodium Potassium Chloride Carbon Dioxide Anion Gap BUN Creatinine Estimated GFR Random Glucose Calcium Calcium Adj for Albumin Phosphorus Magnesium Total Bilirubin AST ALT Alkaline Phosphatase Total Protein Albumin Blood Type Antibody Screen MTS Gel Crossmatch See Detail See Detail Bld Prod Order Comment 05/20/18 16:44 WBC RBC Hgb 8.7 L D Hct 25.2 L MCV MCH MCHC RDW Plt Count MPV Prelim Diff (Auto) Neut % (Auto) Lymph % (Auto) Rabun % (Auto) Eos % (Auto) Baso % (Auto) Neut # (Auto) Lymph # (Auto) Rabun # (Auto) Eos # (Auto) Baso # (Auto) WBC Differential Diff Scan Differential Comment Platelet Estimate Platelet Morphology PT INR APTT Fibrinogen Puncture Site Patient Temperature O2 Saturation ABG pH ABG pCO2 ABG pO2 ABG HCO3 ABG O2 Content ABG Base Excess ABG Methemoglobin [place] Test Hemoglobin Carboxyhemoglobin O2 Delivery Device Liter Flow Vent Setting Inspired O2 Critical Value Sodium Potassium Chloride Carbon Dioxide Anion Gap BUN Creatinine Estimated GFR Random Glucose Calcium Calcium Adj for Albumin Phosphorus Magnesium Total Bilirubin AST ALT Alkaline Phosphatase Total Protein Albumin Blood Type Antibody Screen MTS Gel Crossmatch Bld Prod Order Comment - Imaging Imaging: ITS Impressions GI Bleed Scan Nuclear Medicine 05/19/18 00:00 CONCLUSION: 1. 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 Patient was emergently brought to the interventional radiology department from the nuclear medicine department for angiography and intervention. Mesenteric Arteriogram 05/19/18 14:37 CONCLUSION: 1. 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 2. 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 Assessment and Plan - Assessment (1) GI bleed Code(s): K92.2 - Gastrointestinal hemorrhage, unspecified Status: Acute - Plan Unfortunate 82-year-old woman with apparent history of lung surgery, low platelets, GI bleed, autoimmune disorder whose workup has been extensive and therapies to try and stop nonoperatively, the GI bleed apparently been unsuccessful. 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 Due to previous interventional radiology angiography and embolization endoscopy demonstrates grayish ischemic mucosa in the distal duodenum/proximal jejunum. I discussed with Dr. Scott, Dr. Streeter, and the patient's 2 daughters, 1 of which is Raciel Conley who works here at [employer], surgical option for treatment which should would include emergent exploratory laparotomy with resection of the retroperitoneal duodenal diverticulum and any ischemic bowel. If the patient is stable enough a gastrostomy tube and distal feeding jejunostomy tube could be placed to continue supportive therapy. The alternatives to surgical treatment would include continued resuscitative efforts with transfusions of packed cells and platelets. The patient's daughters are conferring to decide on how they would like to proceed. Either course of action would be associated with high risk of morbidity and mortality, they appear to understand. I have recommended against closure of the abdomen showed an operative course to be performed as I feel like in extremis doing a bowel anastomosis would be contraindicated and return to the operating room and 36-48 hours after continue resuscitation and presumed stability would allow for reconstruction of the GI tract. The patient's daughters have just returned and decided to proceed with operative intervention. I have contacted the operating room to pursue taking this patient to surgery. Discussed Condition With: Dr. Scott, Dr. Streeter, patient's daughters.
[2018-05-20 19:14] LABS: Hematocrit 21.9 % (35.0-46.0); Hemoglobin 7.3 gm/dL (11.6-15.3); Mean Corpuscular HGB Conc 33.1 % (32.0-36.0); Mean Corpuscular Hemoglobin 28.6 pg (27.0-34.0); Mean Corpuscular Volume 86.4 fL (80.0-100.0); Mean Platelet Volume 9.5 fL (7.0-11.0); Platelet Count 62 th/mm3 (150-450); Red Blood Count 2.54 mil/mm3 (4.00-5.30); Red Cell Distribution Width 15.4 % (11.6-17.2); White Blood Count 23.4 th/mm3 (4.0-11.0)
[2018-05-20] MEDS ORDERED: Midazolam Inj 5 MG/ML 1 ML Vial IV.PUSH ONE (19:15)
[2018-05-20 19:39] LABS: Activated Partial Thrombo Time 30.8 sec (23.4-31.7); INR 1.1 Ratio; Prothrombin Time 10.9 sec (9.8-11.6)
[2018-05-20 19:49] LABS: Albumin 1.5 g/dL (3.4-5.0); Calcium 6.4 mg/dL (8.5-10.1); Carbon Dioxide 21.2 meq/L (21.0-32.0); Potassium 4.2 meq/L (3.5-5.1); Total Protein 3.4 g/dL (6.4-8.2)
[2018-05-20] MEDS ORDERED: Calcium Gluconate Inj 3 GM in Sodium Chlor 0.9% Inj 100 ML IV.SIG ONE (19:56)
[2018-05-20] MEDS ORDERED: ceFAZolin 1 GM Premix Inj 2 GM/100 ML PIGGYBACK IV.SIG ONE (19:59)
[2018-05-20 20:58] LABS: ABG PCO2 38 mmHg (38-42); ABG PO2 170 mmHg (61-120)
[2018-05-20] MEDS ORDERED: Calcium Gluconate Inj 2 GM in Sodium Chlor 0.9% Inj 100 ML IV.SIG ONE (21:00)
[2018-05-20] MEDS ORDERED: Propofol Inj 500 MG/50 ML Vial ONE (21:11)
--- NOTE | 2018-05-20 21:32 | P.OP ---
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 Patient came to the operating room and endotracheally intubated with an orogastric tube. A Keller catheter was placed. Anesthesia placed a right internal jugular central line. The patient's abdomen was prepped and draped in usual sterile fashion with ChloraPrep. A timeout procedure was performed. Following completion of timeout procedure everyone's satisfaction within the room and upper midline incision was carried out ultimately extended around the umbilicus and through the inferior midline. Hemostasis was controlled with electrocautery. Dissection continued posteriorly using electrocautery through generous subcutaneous fatty tissue layer until the midline fascia was identified. This was incised with the cutting mode of electrocautery and entry into the peritoneal cavity was facilitated in the upper abdomen. The peritoneal incision was opened the length of the skin incision. The omentum was adherent to the peritoneum along the midline and inferiorly. These attachments were released with electrocautery. Small bowel was distended and came out onto the abdominal wall. The small bowel was run proximally to the ligament of Treitz. Distal to the ligament of Treitz there is a segment about 10 cm in length where the any mesenteric border of the bowel was ischemic consistent with the patient' s history of angiography with embolization. The ligament of Treitz was carefully taken down using a combination of electrocautery and blunt dissection. A segment of intestine distal to the ischemic area was selected for division with the linear cutting stapling device. The mesentery was divided along its border with the small bowel using the harmonic scalpel up. Some branches off of the superior mesenteric artery was suture ligated with 3-0 silk suture ligatures. Dissection continued more proximally until the duodenal diverticulum was identified. It was bluntly dissected free of surrounding tissues. A site proximal to the duodenal diverticulum was selected to divide the duodenum with the linear cutting stapling device blue load. Staple line was imbricated with multiple interrupted 3-0 silk sutures. There is no evidence of bleeding. The mesenteric dissection was hemostatic. The specimen was passed off the field after opening it on the back table. Superficial ulceration in the duodenal diver reticulum was noted but no obvious evidence of etiology of bleed was seen. The specimen was sent to pathology. The wound was irrigated with saline. There is no evidence of bleeding. Due to the emergent nature of the procedure and not being 100% sure that the site of hemorrhage was resected I elected not to re-create a normal gastrointestinal continuity. The orogastric tube was positioned in the stomach in the proper position. An AB Thera VAC was placed in a traditional faction connected to suction and there was no evidence of leak. The patient was returned to the [facility] room 1309 in stable condition. During the procedure her blood pressure was stable. Her heart rate was in the mid 80s at the end of the surgery. She made 300 cc of urine output during the procedure. There is approximately 100 cc of blood loss during surgery. I discussed the operative findings with both of the patient's daughters as well as Dr. Roldan in the intensive care unit.
[2018-05-20] MEDS ORDERED: fentaNYL Citrate Inj 100 MCG/2 ML Ampul ONE (21:46)
[2018-05-20] MEDS ORDERED: Calcium Gluconate Inj 1 GM in Sodium Chlor 0.9% Inj 100 ML IV.SIG ONE (22:00)
--- NOTE | 2018-05-20 22:03 | XR ---
EXAM DATE: 05/20/2018 10:00 PM EST AGE/SEX: 82 years / Female INDICATIONS: Central line placement. CLINICAL DATA: This is the patient's subsequent encounter. Patient reports that signs and symptoms h ave been present for 1 day and indicates a pain score of Nonresponsive. MEDICAL/SURGICAL HISTORY: . Lobectomy. Cardiac stent. . COMPARISON: [facility], CHEST SINGLE AP, 05/21/2016. . FINDINGS: A single AP semierect view of the chest was obtained and demonstrates interval intubation with the en dotracheal tube tip approximately 2 cm above the wendi. There is been placement of a right internal jugular central venous line with the tip projected over t he superior vena cava. There is no pneumothorax. There is a right-sided PICC line also noted in place . There is a nasogastric tube seen coursing through the esophagus and into the stomach. There is abno rmal opacity in the right infrahilar region. The heart size appears mildly prominent. Atherosclerotic changes are present in the aorta. CONCLUSION: 1. Interval intubation and placement of right internal jugular central venous line with no pneumotho rax. 2. New hazy opacity at the right lung base of concern for infiltrate. This could represent pneumonia . 3. Interval placement of nasogastric tube and right-sided PICC line. Electronically signed by: Gerard Polanco MD 05/20/2018 10:02 PM EST
[2018-05-20 22:31] LABS: ABG Base Excess -1.8 mmol/L (-2-2); ABG PCO2 36 mmHg (38-42); ABG PO2 158 mmHg (61-120)
[2018-05-20] MEDS: fentaNYL 10 mcg/mL Premix Drip 2,500 MCG/250 ML BAG IV.SIG PRN (22:35)
[2018-05-20 23:04] LABS: INR 1.1 Ratio; Prothrombin Time 11.4 sec (9.8-11.6)
[2018-05-20 23:05] LABS: Hematocrit 27.9 % (35.0-46.0); Hemoglobin 9.8 gm/dL (11.6-15.3); Mean Corpuscular HGB Conc 35.3 % (32.0-36.0); Mean Corpuscular Hemoglobin 29.1 pg (27.0-34.0); Mean Corpuscular Volume 82.3 fL (80.0-100.0); Mean Platelet Volume 8.9 fL (7.0-11.0); Platelet Count 66 th/mm3 (150-450); Red Blood Count 3.39 mil/mm3 (4.00-5.30); Red Cell Distribution Width 15.8 % (11.6-17.2); White Blood Count 12.5 th/mm3 (4.0-11.0)
[2018-05-20] MEDS: Propofol 1000 mg/100 ml Inj 1,000 MG/100 ML BOTTLE IV.CONT PRN (23:18)
[2018-05-20 23:21] LABS: Albumin 1.3 g/dL (3.4-5.0); Calcium 6.9 mg/dL (8.5-10.1); Carbon Dioxide 21.9 meq/L (21.0-32.0); Potassium 3.8 meq/L (3.5-5.1)
[2018-05-21] MEDS: Pantoprazole Inj 80 MG in Sodium Chlor 0.9% Inj 100 ML IV.CONT SCH ×3 (03:09→23:34)
[2018-05-21 03:40] LABS: Hemoglobin 10.2 gm/dL (11.6-15.3); Mean Corpuscular HGB Conc 35.3 % (32.0-36.0); Mean Corpuscular Hemoglobin 28.9 pg (27.0-34.0); Mean Platelet Volume 9.3 fL (7.0-11.0); Platelet Count 69 th/mm3 (150-450); Red Blood Count 3.54 mil/mm3 (4.00-5.30); Red Cell Distribution Width 15.7 % (11.6-17.2); White Blood Count 17.5 th/mm3 (4.0-11.0)
[2018-05-21 03:58] LABS: Calcium 7.1 mg/dL (8.5-10.1); Carbon Dioxide 23.9 meq/L (21.0-32.0); Magnesium 1.8 mg/dL (1.5-2.5); Phosphorus 2.8 mg/dL (2.5-4.9)
[2018-05-21 04:16] LABS: Albumin 1.4 g/dL (3.4-5.0); Calcium-Albumin Corrected 9.2 mg/dL (8.5-10.1)
[2018-05-21] MEDS: Senna/Docusate Sodium 8.6/50 MG Tablet PO SCH ×3 (06:30→20:45)
[2018-05-21] MEDS: Sod Chloride 0.9% Inj 1,000 ML IV.CONT SCH ×3 (06:43→23:34)
[2018-05-21] MEDS: Propofol 1000 mg/100 ml Inj 1,000 MG/100 ML BOTTLE IV.CONT PRN ×3 (07:05→18:21)
[2018-05-21 08:17] LABS: Hematocrit 27.1 % (35.0-46.0); Hemoglobin 9.3 gm/dL (11.6-15.3)
--- NOTE | 2018-05-21 09:18 | IR ---
EXAM DATE: 05/20/2018 5:06 PM EST AGE/SEX: 82 years / Female INDICATIONS: Patient with history of Gastrointestinal Bleed in need of Peripherally Inserted Central Catheter for vascular access. CLINICAL DATA: This is the patient's initial encounter. Patient reports that signs and symptoms have been present for 4 - 6 days and indicates a pain score of 0/10. MEDICAL/SURGICAL HISTORY: . Right Lower Lobe Lung Mass, GI Bleed, Sjogren Syndrome . Heart Art melany Stent, Lobectomy of Lung. COMPARISON: No prior exams available for comparison. FLUORO TIME (min): 2.30 IMAGE SERIES: 2 ACCESS SITE: Right brachial vein DEVICE(S): 5 Welsh double lumen 32 cm Xcela Power PICC . . PROCEDURE : 1. Ultrasound guidance for venous catheterization. 2. Fluoroscopic guidance. 3. Ultrasound & fluoroscopic guided central venous Power PICC line placement. The risks, benefits and alternatives to the procedure were explained and verbal and written consent w as obtained. The site was prepped in sterile fashion. Full sterile technique was used, including ca p, mask, sterile gloves and gown and a large sterile sheet. Hand hygiene and 2% chlorhexidine prep w as utilized per protocol for cutaneous antisepsis with appropriate dry time for site. Sterile gel a nd sterile probe cover were utilized for ultrasound guidance. The skin and subcutaneous tissues wer e infiltrated with local anesthetic solution. Under direct ultrasound guidance, a suitable vein was accessed and a measuring guidewire was introduc ed and positioned in the central venous system. The ultrasound images depicting access guidance were saved and stored to PACS for permanent record. A Power Injectable PICC line was cut to prescribed length and introduced, positioned with tip at the cavoatrial junction level. The line was flushed and secured per protocol. CONCLUSION: 1. Uncomplicated central venous Power PICC line placement. 2. The PICC line can be used immediately. Electronically signed by: Wang Scott MD 05/21/2018 9:16 AM EST
[2018-05-21 10:27] LABS: ABG Base Excess -1.4 mmol/L (-2-2); ABG PCO2 43 mmHg (38-42); ABG PO2 72 mmHg (61-120)
--- NOTE | 2018-05-21 10:41 | P.PNGS ---
Subjective Interval history: Intubated/Sedated Multiple family members at the bedside KEILY Farrar at bedside Physical Exam Vital signs: Vital Signs 05/20/18 10:47 05/20/18 11:00 05/20/18 11:47 Temperature Pulse Rate 111 H 112 H 111 H Respiratory Rate 12 11 L 12 Blood Pressure 145/65 H 135/59 L Pulse Oximetry 96 98 98 05/20/18 12:00 05/20/18 12:32 05/20/18 12:33 Temperature 98.9 F 97.7 F Pulse Rate 111 H 112 H 116 H Respiratory Rate 12 12 22 Blood Pressure 137/67 137/67 Pulse Oximetry 99 96 98 05/20/18 12:47 05/20/18 13:00 05/20/18 13:30 Temperature 98.3 F Pulse Rate 112 H 118 H 109 H Respiratory Rate 16 13 12 Blood Pressure 151/66 H 135/63 Pulse Oximetry 94 L 92 L 99 05/20/18 14:00 05/20/18 14:05 05/20/18 14:07 Temperature 98.3 F Pulse Rate 113 H 114 H 115 H Respiratory Rate 16 18 18 Blood Pressure 153/67 H 155/66 H 155/66 H Pulse Oximetry 97 98 99 05/20/18 14:30 05/20/18 15:00 05/20/18 15:30 Temperature Pulse Rate 113 H 114 H 112 H Respiratory Rate 13 18 22 Blood Pressure 157/72 H 167/79 H 200/86 H Pulse Oximetry 97 99 98 05/20/18 17:03 05/20/18 18:25 05/20/18 18:48 Temperature 98.3 F Pulse Rate 112 H Respiratory Rate 18 14 Blood Pressure 156/85 H Pulse Oximetry 96 100 100 05/20/18 23:43 05/21/18 00:00 05/21/18 04:00 Temperature 97.7 F 98.9 F Pulse Rate 80 90 Respiratory Rate 14 14 14 Blood Pressure 130/54 L 127/53 L Pulse Oximetry 100 99 05/21/18 04:08 05/21/18 06:00 05/21/18 07:00 Temperature Pulse Rate 90 88 Respiratory Rate 14 14 14 Blood Pressure Pulse Oximetry 95 96 97 05/21/18 07:39 05/21/18 08:00 05/21/18 08:13 Temperature 98.6 F Pulse Rate 90 Respiratory Rate 14 14 15 Blood Pressure Pulse Oximetry 98 97 05/21/18 09:00 Temperature Pulse Rate 91 H Respiratory Rate 14 Blood Pressure Pulse Oximetry 97 Intake & Output 05/20/18 05/21/18 05/21/18 18:59 06:59 18:59 Intake Total 1500 / 1500 2450 / 2450 210 / 210 Output Total 200 / 200 1250 / 1250 Balance 1300 / 1300 1200 / 1200 210 / 210 Weight 97.2 kg Intake: IV 1300 / 1300 550 / 550 210 / 210 Protonix Inj 80 MG In NS Inj 100 / 100 100 / 100 100 ML @ 10 mls/hr IV.CONT Q10H VALERY Rx#:[id number] Diprivan 1000 mg/100 ml Inj 1, 100 / 100 000 mg In 100 ml @ 5 MCG/KG/MIN 2.433 mls/hr IV.CONT TITRATE PRN Rx#:[id number] NS Inj 1,000 ML @ 100 mls/hr IV 1000 / 1000 .CONT .Q10H VALERY Rx#:[id number] Calcium Gluconate Inj 1 GM In 110 / 110 NS Inj 100 ML @ 110 mls/hr IV. SIG ONCE ONE Rx#:[id number] NS Inj 250 ML @ 15 mls/hr IV. 250 / 250 SIG ONCE VALERY Rx#:[id number] Ancef 1 GM Premix Inj 2 gm In 100 / 100 100 ml @ 0 mls/hr IV.SIG .STK- MED ONE Rx#:[id number] Flagyl 500 MG Inj 100 ML @ 0 100 / 100 mls/hr IV.SIG .STK-MED ONE Rx#: [id number] Oral 200 / 200 Anesthesia Amount 1900 / 1900 Intake (Blood Product) Amt 0 / 0 Plt Pheresis B Leukoreduced 0 / 0 Unit [id number] Rbc As-3 Leukoreduced Unit 0 / 0 [id number] Rbc As-3 Leukoreduced Unit 0 / 0 [id number] Output: Emesis 200 / 200 Estimated Blood Loss 100 / 100 Urine Amount (Catheter) 750 / 750 Indwelling Urethral Catheter 750 / 750 Gastric Drainage 150 / 150 Orogastric Tube 150 / 150 Wound Vac Amount 250 / 250 Midline Abdomen 250 / 250 Other: Mode Setting Midline Abdomen Intermittent # Voids 2 Date of Last Bowel Movement 05/20/18 05/20/18 # Bowel Movements 0 Narrative: Intubated/Sedated Cardio: RRR Resp: CTAB Abd: AbThera Wound Vac in place with good seal---canister with light red thin drainage Generalized edema - Urinary Catheter Management Indwelling Urethral Catheter Cath placed during this visit: yes Reason for continuing: Hourly intake/output Insertion date: 05/20/18 Insertion time: 19:55 Results - Labs 05/21/18 13:50 05/21/18 03:30 Laboratory Results - last 24 hr 05/17/18 05/18/18 05/19/18 09:15 07:24 07:00 WBC RBC Hgb Hct MCV MCH MCHC RDW Plt Count MPV Haptoglobin PT INR APTT Fibrinogen Puncture Site Patient Temperature O2 Saturation ABG pH ABG pCO2 ABG pO2 ABG HCO3 ABG O2 Content ABG Base Excess ABG Methemoglobin [place] Test Hemoglobin Carboxyhemoglobin O2 Delivery Device Liter Flow Vent Setting Inspired O2 Critical Value Sodium Potassium Chloride Carbon Dioxide Anion Gap BUN Creatinine Estimated GFR Random Glucose Lactic Acid Calcium Calcium Adj for Albumin Phosphorus Magnesium Total Bilirubin AST ALT Alkaline Phosphatase Total Protein Albumin Blood Type Antibody Screen MTS Gel Crossmatch See Detail See Detail See Detail Bld Prod Order Comment 05/19/18 05/20/18 05/20/18 17:02 10:45 10:55 WBC RBC Hgb 6.1 L* Hct 18.8 L* MCV MCH MCHC RDW Plt Count MPV Haptoglobin PT INR APTT Fibrinogen Puncture Site Cancelled Patient Temperature Cancelled O2 Saturation Cancelled ABG pH Cancelled ABG pCO2 Cancelled ABG pO2 Cancelled ABG HCO3 Cancelled ABG O2 Content Cancelled ABG Base Excess Cancelled ABG Methemoglobin Cancelled [place] Test Cancelled Hemoglobin Cancelled Carboxyhemoglobin Cancelled O2 Delivery Device Cancelled Liter Flow Cancelled Vent Setting Cancelled Inspired O2 Cancelled Critical Value Cancelled Sodium Potassium Chloride Carbon Dioxide Anion Gap BUN Creatinine Estimated GFR Random Glucose Lactic Acid Calcium Calcium Adj for Albumin Phosphorus Magnesium Total Bilirubin AST ALT Alkaline Phosphatase Total Protein Albumin Blood Type O Positive Antibody Screen Negative MTS Gel Crossmatch See Detail Bld Prod Order Comment 05/20/18 05/20/18 05/20/18 10:55 10:55 10:55 WBC RBC Hgb Hct MCV MCH MCHC RDW Plt Count MPV Haptoglobin PT INR APTT Fibrinogen Puncture Site Patient Temperature O2 Saturation ABG pH ABG pCO2 ABG pO2 ABG HCO3 ABG O2 Content ABG Base Excess ABG Methemoglobin [place] Test Hemoglobin Carboxyhemoglobin O2 Delivery Device Liter Flow Vent Setting Inspired O2 Critical Value Sodium Potassium Chloride Carbon Dioxide Anion Gap BUN Creatinine Estimated GFR Random Glucose Lactic Acid Calcium Calcium Adj for Albumin Phosphorus Magnesium Total Bilirubin AST ALT Alkaline Phosphatase Total Protein Albumin Blood Type Antibody Screen MTS Gel Crossmatch See Detail See Detail See Detail Bld Prod Order Comment 05/20/18 05/20/18 05/20/18 10:55 11:34 15:20 WBC RBC Hgb Hct MCV MCH MCHC RDW Plt Count MPV Haptoglobin PT INR APTT Fibrinogen Puncture Site Patient Temperature O2 Saturation ABG pH ABG pCO2 ABG pO2 ABG HCO3 ABG O2 Content ABG Base Excess ABG Methemoglobin [place] Test Hemoglobin Carboxyhemoglobin O2 Delivery Device Liter Flow Vent Setting Inspired O2 Critical Value Sodium Potassium Chloride Carbon Dioxide Anion Gap BUN Creatinine Estimated GFR Random Glucose Lactic Acid Calcium Calcium Adj for Albumin Phosphorus Magnesium Total Bilirubin AST ALT Alkaline Phosphatase Total Protein Albumin Blood Type Antibody Screen MTS Gel Crossmatch See Detail See Detail Bld Prod Order Comment 05/20/18 05/20/18 05/20/18 16:44 18:55 18:55 WBC 23.4 H RBC 2.54 L Hgb 8.7 L D 7.3 L Hct 25.2 L 21.9 L MCV 86.4 MCH 28.6 MCHC 33.1 RDW 15.4 Plt Count 62 L D MPV 9.5 Haptoglobin PT 10.9 INR 1.1 APTT 30.8 Fibrinogen 255 Puncture Site Patient Temperature O2 Saturation ABG pH ABG pCO2 ABG pO2 ABG HCO3 ABG O2 Content ABG Base Excess ABG Methemoglobin [place] Test Hemoglobin Carboxyhemoglobin O2 Delivery Device Liter Flow Vent Setting Inspired O2 Critical Value Sodium Potassium Chloride Carbon Dioxide Anion Gap BUN Creatinine Estimated GFR Random Glucose Lactic Acid Calcium Calcium Adj for Albumin Phosphorus Magnesium Total Bilirubin AST ALT Alkaline Phosphatase Total Protein Albumin Blood Type Antibody Screen MTS Gel Crossmatch Bld Prod Order Comment 05/20/18 05/20/18 05/20/18 18:55 18:55 20:44 WBC RBC Hgb Hct MCV MCH MCHC RDW Plt Count MPV Haptoglobin PT INR APTT Fibrinogen Puncture Site Art line Patient Temperature 98.6 O2 Saturation 97 ABG pH 7.35 L ABG pCO2 38 ABG pO2 170 H ABG HCO3 21 L ABG O2 Content 12.0 ABG Base Excess -4.0 L ABG Methemoglobin 0.7 [place] Test Hemoglobin 8.5 L Carboxyhemoglobin 1.6 O2 Delivery Device Ventilator Liter Flow Vent Setting O.r. Inspired O2 100 Critical Value No Sodium 143 Potassium 4.2 Chloride 114 H Carbon Dioxide 21.2 Anion Gap 8 BUN 23 H Creatinine 0.71 Estimated GFR 79 L Random Glucose 146 H Lactic Acid 1.0 Calcium 6.4 L* Calcium Adj for Albumin 8.4 L Phosphorus Magnesium Total Bilirubin 0.3 AST 20 ALT 16 Alkaline Phosphatase 41 L Total Protein 3.4 L D Albumin 1.5 L Blood Type Antibody Screen MTS Gel Crossmatch Bld Prod Order Comment 05/20/18 05/20/18 05/20/18 22:13 22:40 22:40 WBC 12.5 H RBC 3.39 L Hgb 9.8 L D Hct 27.9 L MCV 82.3 D MCH 29.1 MCHC 35.3 RDW 15.8 Plt Count 66 L MPV 8.9 Haptoglobin PT 11.4 INR 1.1 APTT Fibrinogen 224 L Puncture Site [place] Patient Temperature 98.6 O2 Saturation 97 ABG pH 7.40 ABG pCO2 36 L ABG pO2 158 H ABG HCO3 22 ABG O2 Content 13.1 ABG Base Excess -1.8 ABG Methemoglobin 1.5 [place] Test Hemoglobin 9.4 L Carboxyhemoglobin 1.4 O2 Delivery Device Ventilator Liter Flow Vent Setting See comment Inspired O2 75 Critical Value No Sodium Potassium Chloride Carbon Dioxide Anion Gap BUN Creatinine Estimated GFR Random Glucose Lactic Acid Calcium Calcium Adj for Albumin Phosphorus Magnesium Total Bilirubin AST ALT Alkaline Phosphatase Total Protein Albumin Blood Type Antibody Screen MTS Gel Crossmatch Bld Prod Order Comment 05/20/18 05/21/18 05/21/18 22:40 03:30 03:30 WBC 17.5 H RBC 3.54 L Hgb 10.2 L Hct 29.0 L MCV 82.0 MCH 28.9 MCHC 35.3 RDW 15.7 Plt Count 69 L MPV 9.3 Haptoglobin 109 PT INR APTT Fibrinogen Puncture Site Patient Temperature O2 Saturation ABG pH ABG pCO2 ABG pO2 ABG HCO3 ABG O2 Content ABG Base Excess ABG Methemoglobin [place] Test Hemoglobin Carboxyhemoglobin O2 Delivery Device Liter Flow Vent Setting Inspired O2 Critical Value Sodium 145 145 Potassium 3.8 4.0 Chloride 113 H 114 H Carbon Dioxide 21.9 23.9 Anion Gap 10 7 BUN 22 H 23 H Creatinine 0.67 0.75 Estimated GFR 84 L 74 L Random Glucose 162 H 164 H Lactic Acid Calcium 6.9 L* 7.1 L* Calcium Adj for Albumin 9.4 D 9.2 Phosphorus 2.8 Magnesium 1.8 Total Bilirubin 0.3 AST 16 ALT 14 Alkaline Phosphatase 33 L Total Protein 3.0 L Albumin 1.3 L 1.4 L Blood Type Antibody Screen MTS Gel Crossmatch Bld Prod Order Comment 05/21/18 05/21/18 08:00 10:17 WBC RBC Hgb 9.3 L Hct 27.1 L MCV MCH MCHC RDW Plt Count MPV Haptoglobin PT INR APTT Fibrinogen Puncture Site Jess Patient Temperature 98.6 O2 Saturation 92 ABG pH 7.36 L ABG pCO2 43 H ABG pO2 72 ABG HCO3 23 ABG O2 Content 12.3 ABG Base Excess -1.4 ABG Methemoglobin 1.3 [place] Test Present Hemoglobin 9.5 L Carboxyhemoglobin 1.4 O2 Delivery Device Vent Liter Flow Vent Setting Prvc 14/500/1.0/+5 Inspired O2 40 Critical Value No Sodium Potassium Chloride Carbon Dioxide Anion Gap BUN Creatinine Estimated GFR Random Glucose Lactic Acid Calcium Calcium Adj for Albumin Phosphorus Magnesium Total Bilirubin AST ALT Alkaline Phosphatase Total Protein Albumin Blood Type Antibody Screen MTS Gel Crossmatch Bld Prod Order Comment - Imaging Imaging: ITS Impressions GI Bleed Scan Nuclear Medicine 05/19/18 00:00 CONCLUSION: 1. 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 Patient was emergently brought to the interventional radiology department from the nuclear medicine department for angiography and intervention. Mesenteric Arteriogram 05/19/18 14:37 CONCLUSION: 1. 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 2. 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 Chest X-Ray 05/20/18 00:00 CONCLUSION: 1. Interval intubation and placement of right internal jugular central venous line with no pneumothorax. 2. New hazy opacity at the right lung base of concern for infiltrate. This could represent pneumonia. 3. Interval placement of nasogastric tube and right-sided PICC line. PICC Line Insertion 05/20/18 00:00 CONCLUSION: 1. Uncomplicated central venous Power PICC line placement. 2. The PICC line can be used immediately. Abdomen/Pelvis CT 05/20/18 18:16 CONCLUSION: 1. Nonspecific, nonobstructive bowel gas pattern which may represent a mild ileus or be related to the recent endoscopy and insufflation of air. There is no focal wall thickening or inflammatory change. There is no free air or fluid. 2. Nonobstructing left renal calculi. 3. Small effusions and mild consolidative opacity in both lung bases. 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 Both of her daughters her son-in-law and her grandson were at the bedside as well as the patient's bedside RN. The patient has remained very stable overnight considering the urgency of the surgery and the recent events with her GI bleed. Is not shown any signs of further GI bleed since the surgery. Her orogastric tube only has bilious drainage. Her abdomen VAC dressing shows a small area of subcutaneous fatty tissue outside of the sponge at the 9 o'clock position. There is no evidence of intestine or intra- abdominal fatty tissue protruding around the sponge. Postop resection of duodenum, duodenal diverticulum and proximal jejunum for GI bleed. No evidence of further GI bleed since the surgery. Tentative plans to return to the OR either tomorrow evening or Friday for reconstitution of her GI continuity and placement of a distal feeding jejunostomy. Discussed in detail with those present at the bedside. All questions were answered. Everyone appears to understand the plans. The exam, history, and the medical decision-making described in the above note were completed with the assistance of the mid-level provider. I reviewed and agree with the findings presented. I attest that I had a [id number] encounter with the patient on the same day, and personally performed and documented my assessment and findings in the medical record.
--- NOTE | 2018-05-21 11:38 | P.PNGI ---
Subjective Interval history: Intubated and mechanically ventilated Family at bedside Patient is postop day 1 exploratory laparotomy Post enteroscopy done on 05/20/2018 Physical Exam Vital signs: Vital Signs 05/20/18 11:47 05/20/18 12:00 05/20/18 12:32 Temperature 98.9 F Pulse Rate 111 H 111 H 112 H Respiratory Rate 12 12 12 Blood Pressure 135/59 L 137/67 Pulse Oximetry 98 99 96 05/20/18 12:33 05/20/18 12:47 05/20/18 13:00 Temperature 97.7 F 98.3 F Pulse Rate 116 H 112 H 118 H Respiratory Rate 22 16 13 Blood Pressure 137/67 151/66 H Pulse Oximetry 98 94 L 92 L 05/20/18 13:30 05/20/18 14:00 05/20/18 14:05 Temperature 98.3 F Pulse Rate 109 H 113 H 114 H Respiratory Rate 12 16 18 Blood Pressure 135/63 153/67 H 155/66 H Pulse Oximetry 99 97 98 05/20/18 14:07 05/20/18 14:30 05/20/18 15:00 Temperature Pulse Rate 115 H 113 H 114 H Respiratory Rate 18 13 18 Blood Pressure 155/66 H 157/72 H 167/79 H Pulse Oximetry 99 97 99 05/20/18 15:30 05/20/18 17:03 05/20/18 18:25 Temperature 98.3 F Pulse Rate 112 H 112 H Respiratory Rate 22 18 Blood Pressure 200/86 H 156/85 H Pulse Oximetry 98 96 100 05/20/18 18:48 05/20/18 23:43 05/21/18 00:00 Temperature 97.7 F Pulse Rate 80 Respiratory Rate 14 14 14 Blood Pressure 130/54 L Pulse Oximetry 100 100 99 05/21/18 04:00 05/21/18 04:08 05/21/18 06:00 Temperature 98.9 F Pulse Rate 90 90 Respiratory Rate 14 14 14 Blood Pressure 127/53 L Pulse Oximetry 95 96 05/21/18 07:00 05/21/18 07:39 05/21/18 08:00 Temperature 98.6 F Pulse Rate 88 90 Respiratory Rate 14 14 14 Blood Pressure Pulse Oximetry 97 98 05/21/18 08:13 05/21/18 09:00 05/21/18 10:00 Temperature Pulse Rate 91 H 89 Respiratory Rate 15 14 14 Blood Pressure Pulse Oximetry 97 97 95 05/21/18 11:00 Temperature Pulse Rate 89 Respiratory Rate 14 Blood Pressure Pulse Oximetry 97 Intake & Output 05/20/18 05/21/18 05/21/18 18:59 06:59 18:59 Intake Total 1500 / 1500 2450 / 2450 210 / 210 Output Total 200 / 200 1250 / 1250 Balance 1300 / 1300 1200 / 1200 210 / 210 Weight 97.2 kg Intake: IV 1300 / 1300 550 / 550 210 / 210 Protonix Inj 80 MG In NS Inj 100 / 100 100 / 100 100 ML @ 10 mls/hr IV.CONT Q10H [facility] Rx#:[id number] Diprivan 1000 mg/100 ml Inj 1, 100 / 100 000 mg In 100 ml @ 5 MCG/KG/MIN 2.433 mls/hr IV.CONT TITRATE PRN Rx#:[id number] NS Inj 1,000 ML @ 100 mls/hr IV 1000 / 1000 .CONT .Q10H [facility] Rx#:[id number] Calcium Gluconate Inj 1 GM In 110 / 110 NS Inj 100 ML @ 110 mls/hr IV. SIG ONCE ONE Rx#:[id number] NS Inj 250 ML @ 15 mls/hr IV. 250 / 250 SIG ONCE [facility] Rx#:[id number] Ancef 1 GM Premix Inj 2 gm In 100 / 100 100 ml @ 0 mls/hr IV.SIG .STK- MED ONE Rx#:[id number] Flagyl 500 MG Inj 100 ML @ 0 100 / 100 mls/hr IV.SIG .STK-MED ONE Rx#: [id number] Oral 200 / 200 Anesthesia Amount 1900 / 1900 Intake (Blood Product) Amt 0 / 0 Plt Pheresis B Leukoreduced 0 / 0 Unit [id number] Rbc As-3 Leukoreduced Unit 0 / 0 [id number] Rbc As-3 Leukoreduced Unit 0 / 0 [id number] Output: Emesis 200 / 200 Estimated Blood Loss 100 / 100 Urine Amount (Catheter) 750 / 750 Indwelling Urethral Catheter 750 / 750 Gastric Drainage 150 / 150 Orogastric Tube 150 / 150 Wound Vac Amount 250 / 250 Midline Abdomen 250 / 250 Other: Mode Setting Midline Abdomen Intermittent # Voids 2 Date of Last Bowel Movement 05/20/18 05/20/18 # Bowel Movements 0 - Constitutional Comments: Intubated and mechanically ventilated - Routine HEENT Exam Head: Present: normocephalic - Routine Respiratory Exam Present: patient mechanically ventilated, CTA bilaterally. Absent: accessory muscle use - Routine Cardiovascular Exam Present: RRR, S1, S2 - Routine Abdominal Exam Present: distended, wound Comments: Patient is postop exploratory laparoscopy Mid abdominal wound with dressing in place-wound VAC - Routine Extremities Exam Present: edema - Routine Skin Exam Present: dry, warm - Urinary Catheter Management Indwelling Urethral Catheter Cath placed during this visit: yes Reason for continuing: Hourly intake/output Insertion date: 05/20/18 Insertion time: 19:55 Results - Labs CBC & Chem 7: 05/21/18 08:00 05/21/18 03:30 Laboratory Results - last 24 hr 05/17/18 05/18/18 05/19/18 09:15 07:24 07:00 WBC RBC Hgb Hct MCV MCH MCHC RDW Plt Count MPV Haptoglobin PT INR APTT Fibrinogen Puncture Site Patient Temperature O2 Saturation ABG pH ABG pCO2 ABG pO2 ABG HCO3 ABG O2 Content ABG Base Excess ABG Methemoglobin [place] Test Hemoglobin Carboxyhemoglobin O2 Delivery Device Liter Flow Vent Setting Inspired O2 Critical Value Sodium Potassium Chloride Carbon Dioxide Anion Gap BUN Creatinine Estimated GFR Random Glucose Lactic Acid Calcium Calcium Adj for Albumin Phosphorus Magnesium Total Bilirubin AST ALT Alkaline Phosphatase Total Protein Albumin Blood Type Antibody Screen MTS Gel Crossmatch See Detail See Detail See Detail Bld Prod Order Comment 05/19/18 05/20/18 05/20/18 17:02 10:55 10:55 WBC RBC Hgb Hct MCV MCH MCHC RDW Plt Count MPV Haptoglobin PT INR APTT Fibrinogen Puncture Site Cancelled Patient Temperature Cancelled O2 Saturation Cancelled ABG pH Cancelled ABG pCO2 Cancelled ABG pO2 Cancelled ABG HCO3 Cancelled ABG O2 Content Cancelled ABG Base Excess Cancelled ABG Methemoglobin Cancelled [place] Test Cancelled Hemoglobin Cancelled Carboxyhemoglobin Cancelled O2 Delivery Device Cancelled Liter Flow Cancelled Vent Setting Cancelled Inspired O2 Cancelled Critical Value Cancelled Sodium Potassium Chloride Carbon Dioxide Anion Gap BUN Creatinine Estimated GFR Random Glucose Lactic Acid Calcium Calcium Adj for Albumin Phosphorus Magnesium Total Bilirubin AST ALT Alkaline Phosphatase Total Protein Albumin Blood Type O Positive Antibody Screen Negative MTS Gel Crossmatch See Detail See Detail Bld Prod Order Comment 05/20/18 05/20/18 05/20/18 10:55 10:55 10:55 WBC RBC Hgb Hct MCV MCH MCHC RDW Plt Count MPV Haptoglobin PT INR APTT Fibrinogen Puncture Site Patient Temperature O2 Saturation ABG pH ABG pCO2 ABG pO2 ABG HCO3 ABG O2 Content ABG Base Excess ABG Methemoglobin [place] Test Hemoglobin Carboxyhemoglobin O2 Delivery Device Liter Flow Vent Setting Inspired O2 Critical Value Sodium Potassium Chloride Carbon Dioxide Anion Gap BUN Creatinine Estimated GFR Random Glucose Lactic Acid Calcium Calcium Adj for Albumin Phosphorus Magnesium Total Bilirubin AST ALT Alkaline Phosphatase Total Protein Albumin Blood Type Antibody Screen MTS Gel Crossmatch See Detail See Detail See Detail Bld Prod Order Comment 05/20/18 05/20/18 05/20/18 11:34 15:20 16:44 WBC RBC Hgb 8.7 L D Hct 25.2 L MCV MCH MCHC RDW Plt Count MPV Haptoglobin PT INR APTT Fibrinogen Puncture Site Patient Temperature O2 Saturation ABG pH ABG pCO2 ABG pO2 ABG HCO3 ABG O2 Content ABG Base Excess ABG Methemoglobin [place] Test Hemoglobin Carboxyhemoglobin O2 Delivery Device Liter Flow Vent Setting Inspired O2 Critical Value Sodium Potassium Chloride Carbon Dioxide Anion Gap BUN Creatinine Estimated GFR Random Glucose Lactic Acid Calcium Calcium Adj for Albumin Phosphorus Magnesium Total Bilirubin AST ALT Alkaline Phosphatase Total Protein Albumin Blood Type Antibody Screen MTS Gel Crossmatch See Detail Bld Prod Order Comment 05/20/18 05/20/18 05/20/18 18:55 18:55 18:55 WBC 23.4 H RBC 2.54 L Hgb 7.3 L Hct 21.9 L MCV 86.4 MCH 28.6 MCHC 33.1 RDW 15.4 Plt Count 62 L D MPV 9.5 Haptoglobin PT 10.9 INR 1.1 APTT 30.8 Fibrinogen 255 Puncture Site Patient Temperature O2 Saturation ABG pH ABG pCO2 ABG pO2 ABG HCO3 ABG O2 Content ABG Base Excess ABG Methemoglobin [place] Test Hemoglobin Carboxyhemoglobin O2 Delivery Device Liter Flow Vent Setting Inspired O2 Critical Value Sodium 143 Potassium 4.2 Chloride 114 H Carbon Dioxide 21.2 Anion Gap 8 BUN 23 H Creatinine 0.71 Estimated GFR 79 L Random Glucose 146 H Lactic Acid Calcium 6.4 L* Calcium Adj for Albumin 8.4 L Phosphorus Magnesium Total Bilirubin 0.3 AST 20 ALT 16 Alkaline Phosphatase 41 L Total Protein 3.4 L D Albumin 1.5 L Blood Type Antibody Screen MTS Gel Crossmatch Bld Prod Order Comment 05/20/18 05/20/18 05/20/18 18:55 20:44 22:13 WBC RBC Hgb Hct MCV MCH MCHC RDW Plt Count MPV Haptoglobin PT INR APTT Fibrinogen Puncture Site Art line Jess Patient Temperature 98.6 98.6 O2 Saturation 97 97 ABG pH 7.35 L 7.40 ABG pCO2 38 36 L ABG pO2 170 H 158 H ABG HCO3 21 L 22 ABG O2 Content 12.0 13.1 ABG Base Excess -4.0 L -1.8 ABG Methemoglobin 0.7 1.5 [place] Test Hemoglobin 8.5 L 9.4 L Carboxyhemoglobin 1.6 1.4 O2 Delivery Device Ventilator Ventilator Liter Flow Vent Setting O.r. See comment Inspired O2 100 75 Critical Value No No Sodium Potassium Chloride Carbon Dioxide Anion Gap BUN Creatinine Estimated GFR Random Glucose Lactic Acid 1.0 Calcium Calcium Adj for Albumin Phosphorus Magnesium Total Bilirubin AST ALT Alkaline Phosphatase Total Protein Albumin Blood Type Antibody Screen MTS Gel Crossmatch Bld Prod Order Comment 05/20/18 05/20/18 05/20/18 22:40 22:40 22:40 WBC 12.5 H RBC 3.39 L Hgb 9.8 L D Hct 27.9 L MCV 82.3 D MCH 29.1 MCHC 35.3 RDW 15.8 Plt Count 66 L MPV 8.9 Haptoglobin PT 11.4 INR 1.1 APTT Fibrinogen 224 L Puncture Site Patient Temperature O2 Saturation ABG pH ABG pCO2 ABG pO2 ABG HCO3 ABG O2 Content ABG Base Excess ABG Methemoglobin [place] Test Hemoglobin Carboxyhemoglobin O2 Delivery Device Liter Flow Vent Setting Inspired O2 Critical Value Sodium 145 Potassium 3.8 Chloride 113 H Carbon Dioxide 21.9 Anion Gap 10 BUN 22 H Creatinine 0.67 Estimated GFR 84 L Random Glucose 162 H Lactic Acid Calcium 6.9 L* Calcium Adj for Albumin 9.4 D Phosphorus Magnesium Total Bilirubin 0.3 AST 16 ALT 14 Alkaline Phosphatase 33 L Total Protein 3.0 L Albumin 1.3 L Blood Type Antibody Screen MTS Gel Crossmatch Bld Prod Order Comment 05/21/18 05/21/18 05/21/18 03:30 03:30 08:00 WBC 17.5 H RBC 3.54 L Hgb 10.2 L 9.3 L Hct 29.0 L 27.1 L MCV 82.0 MCH 28.9 MCHC 35.3 RDW 15.7 Plt Count 69 L MPV 9.3 Haptoglobin 109 PT INR APTT Fibrinogen Puncture Site Patient Temperature O2 Saturation ABG pH ABG pCO2 ABG pO2 ABG HCO3 ABG O2 Content ABG Base Excess ABG Methemoglobin [place] Test Hemoglobin Carboxyhemoglobin O2 Delivery Device Liter Flow Vent Setting Inspired O2 Critical Value Sodium 145 Potassium 4.0 Chloride 114 H Carbon Dioxide 23.9 Anion Gap 7 BUN 23 H Creatinine 0.75 Estimated GFR 74 L Random Glucose 164 H Lactic Acid Calcium 7.1 L* Calcium Adj for Albumin 9.2 Phosphorus 2.8 Magnesium 1.8 Total Bilirubin AST ALT Alkaline Phosphatase Total Protein Albumin 1.4 L Blood Type Antibody Screen MTS Gel Crossmatch Bld Prod Order Comment 05/21/18 10:17 WBC RBC Hgb Hct MCV MCH MCHC RDW Plt Count MPV Haptoglobin PT INR APTT Fibrinogen Puncture Site [place] Patient Temperature 98.6 O2 Saturation 92 ABG pH 7.36 L ABG pCO2 43 H ABG pO2 72 ABG HCO3 23 ABG O2 Content 12.3 ABG Base Excess -1.4 ABG Methemoglobin 1.3 [place] Test Present Hemoglobin 9.5 L Carboxyhemoglobin 1.4 O2 Delivery Device Vent Liter Flow Vent Setting Prvc 14/500/1.0/+5 Inspired O2 40 Critical Value No Sodium Potassium Chloride Carbon Dioxide Anion Gap BUN Creatinine Estimated GFR Random Glucose Lactic Acid Calcium Calcium Adj for Albumin Phosphorus Magnesium Total Bilirubin AST ALT Alkaline Phosphatase Total Protein Albumin Blood Type Antibody Screen MTS Gel Crossmatch Bld Prod Order Comment - Imaging Impressions Chest X-Ray 05/20/18 00:00 CONCLUSION: 1. Interval intubation and placement of right internal jugular central venous line with no pneumothorax. 2. New hazy opacity at the right lung base of concern for infiltrate. This could represent pneumonia. 3. Interval placement of nasogastric tube and right-sided PICC line. PICC Line Insertion 05/20/18 00:00 CONCLUSION: 1. Uncomplicated central venous Power PICC line placement. 2. The PICC line can be used immediately. Abdomen/Pelvis CT 05/20/18 18:16 CONCLUSION: 1. Nonspecific, nonobstructive bowel gas pattern which may represent a mild ileus or be related to the recent endoscopy and insufflation of air. There is no focal wall thickening or inflammatory change. There is no free air or fluid. 2. Nonobstructing left renal calculi. 3. Small effusions and mild consolidative opacity in both lung bases. Assessment and Plan (1) GI bleed Status: Acute Code(s): K92.2 - Gastrointestinal hemorrhage, unspecified - Plan This patient is an 82-year-old female who presented to the emergency room at [facility] with complaint of nausea vomiting and abdominal pain. Past medical history significant for right lower lobe lung mass and Sjogren's syndrome. Surgical history significant for cardiac stent and lobectomy of lung. Upon consultation, patient reports onset of nausea with projectile vomiting since 2 AM this morning. States that this was precipitated by 24 hours of experiencing decreased appetite with nausea and generalized weakness. Patient states during the 2 episodes of projectile vomiting at home she also had formed black tarry stools. Last colonoscopy done in February 2018 revealed diverticulosis in the sigmoid colon with multiple polyps, internal and external hemorrhoids. She reports emesis was clear and denies hematemesis. Patient endorses taking aspirin 81 mg p.o. daily and denies any use of NSAIDs. She reports history of gastritis noted on EGD done in February 2018. History of GERD for which patient takes Protonix 40 mg p.o. daily. Patient denies any known family history of gastrointestinal disorders and denies any use of tobacco or alcohol products. GI bleed -Onset 2 AM this morning, nausea with projectile vomiting and black tarry stools. -03/11/2018 EGD-- 1.Gastritis antrum-biopsy duodenum normal-biopsy esophagitis grade B-biopsy 2.Retroflexed views revealed a hiatal hernia -03/11/2018 colonoscopy-- 1. Diverticulosis sigmoid,descending polyp sessile hepatic flexure-8 mm-hot snare polypectomy polyp sessile 8 mm cecum-hot snare polypectomy with complete removal very tortuous and floppy colon cecum seen , not able to enter cap due to looping, but seen well possible adhesions 2. There was no evidence of random biopsies from ascending and descending colon to r/o microscopic colitis 3. Retroflexed views revealed internal hemorrhoids 4. Retroflexed views revealed small internal hemorrhoids 5. Revealed external hemorrhoids -05/17/2018 hemoglobin 7.6 hematocrit 22.5 GI bleed Per nurse, pt with lots of epigastric pain, has to be placed on Dilaudid to get relief. Had two BMs last night with dark old bloody clots. Received 3 units of blood yesterday, hgb today is 7.4, holding increased from 5.6. No nausea or vomiting. 05/18/2018 EGD revealed the following findings-- 1. The esophagus was otherwise normal 2. There was mild gastritis in the entire examined stomach; biopsy was performed 3. Large amount of fresh blood covering the stomach, the entire mucosa was inspected after suctioning, no abnormalities or source of bleeding identified 4. Normal duodenal mucosa 5. Retroflexed views revealed Large amount of fresh blood GI Bleed Scan Nuclear Medicine 05/19/18 CONCLUSION: 1. 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 Patient was emergently brought to the interventional radiology department from the nuclear medicine department for angiography and intervention. Mesenteric Arteriogram 05/19/18 CONCLUSION: 1. 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 2. 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 Case discussed with Dr. Scott, will give Plt as this might help with her bleeding 05/21/2018 -Patient intubated and mechanically ventilated -No active bleeding reported. -Mid abdominal incision with dressing and wound VAC present. -Orogastric tube with estimated 50 cc of drainage noted. -05/20/2018 enteroscopy revealed the following findings: Esophagus: Normal Stomach full of blood Duodenum full of blood Proximal jejunum full of blood the mucosa looked ischemic with discoloration and grayish mucosa 05/20/2018 CT abdomen and pelvis: 1. Nonspecific, nonobstructive bowel gas pattern which may represent a mild ileus or be related to the recent endoscopy and insufflation of air. There is no focal wall thickening or inflammatory change. There is no free air or fluid. 2. Nonobstructing left renal calculi. 3. Small effusions and mild consolidative opacity in both lung bases. > Patient is post-op day 1 exploratory laparotomy with resection of the duodenum including the duodenal diverticulum and proximal jejunum. > 05/21/2018--WBC 17.5 hemoglobin 9.3 hematocrit 27.1 stable, platelet count 69 Plan -N.p.o. -Orogastric tube to low intermittent wall suction -Continue IV hydration -Continue pantoprazole infusion -Antiemetics as per attending -Monitor for bleeding -Monitor hemoglobin and hematocrit closely -Supportive care -Further recommendations to follow This patient has been seen by myself and Dr. Che and this note is written on his behalf - Attending Attestation dr. che
[2018-05-21] MEDS: Heparin Central Flush 100 UNIT/ML 5 ML Vial IV.FLUSH SCH (12:04)
[2018-05-21] MEDS: MethylPREDNISolone Sod Succinate Inj 125 MG/2 ML Vial IV.PUSH SCH ×2 (12:04→23:35)
[2018-05-21] MEDS: Lidocaine 5% Patch T-DERMAL SCH (12:05)
[2018-05-21 14:17] LABS: Hematocrit 27.5 % (35.0-46.0); Hemoglobin 9.6 gm/dL (11.6-15.3); Mean Corpuscular HGB Conc 35.1 % (32.0-36.0); Mean Corpuscular Hemoglobin 29.6 pg (27.0-34.0); Mean Corpuscular Volume 84.4 fL (80.0-100.0); Mean Platelet Volume 10.2 fL (7.0-11.0); Platelet Count 65 th/mm3 (150-450); Red Blood Count 3.26 mil/mm3 (4.00-5.30); Red Cell Distribution Width 16.1 % (11.6-17.2); White Blood Count 15.6 th/mm3 (4.0-11.0)
[2018-05-21] MEDS ORDERED: Sodium Chlor 0.9% Inj 250 ML IV.SIG SCH ×2 (15:00→23:45)
[2018-05-21] MEDS ORDERED: Albumin Human 5% Inj 500 ML IV.SIG STA (17:36)
--- NOTE | 2018-05-21 17:46 | P.PNCC ---
Subjective Subjective Remarks/Hospital Course: Hospital Course: 82yF with history of amyloidosis who presented with GI bleeding, hypotension, and severe anemia. originally admitted to the floor. hgb continued to downtrend despite transfusions. today taken for EGD which found blood in the stomach and clot, but no active bleeding. despite this, hgb still did not improve. taken for bleeding scan which was very +. discussed case with Dr. Garcia/Dr. Garland in IR. review of admission CT abd/pelvis demonstrates possible bleeding at duodenal bulb concerning for ulceration. Taken emergently to IR for embolization which appears to be successful. I evaluated the patient upon arrival to the ICU post-IR procedure. she is stable. complaining of hip pain. hgb has improved appropriately. she denies other complaints. she asked me not to look at her groin sites because "my hips hurt and I am tired." Recent evaluation by bedside RN is without hematoma, and this evaluation is deferred at patient's request (bedside RN to continue to monitor for signs of hematoma). remainder of ROS negative. Subjective: 05/20: doing well. complaining of moderate abdominal pain 5/10. receiving iv dilaudid currently. plan for EGD today. hgb dropped from 7.8 to 7.4, but slightly more tachycardic today, and I am worried about ongoing bleeding, although it does appear to be much slower clinically than yesterday. I discussed with [facility] [employer] that per my conversation with IR, the lesion may be in the 4th portion of the duodenum near the ligament and it may require further investigation that usual EGD, and possibly push enteroscopy. She stated she would convey to the proceduralist. Dr. Shin suggests type II NSTEMI secondary to anemia and I agree completely with his assessment. Given that she is going soon for repeat EGD with anesthesia, will give 1 additional unit of prbc as she clearly has demonstrated she needs higher hematocrit for oxygen carrying capacity to her known ischemic CAD lesions. 05/21: s/p exploratory laparotomy last night. open abdomen. hgb stable. became acutely hypotensive with increased wound vac output one time today- emergently gave 1 unit prbc and 1 unit plt empirically given sudden change in condition. significant 3rd space losses requiring additional resuscitative efforts. remains deeply sedated. off vasopressors. remains intubated. Objective Vital Signs / I&O: Vital Signs 05/20/18 18:25 05/20/18 18:48 05/20/18 23:43 Temperature Pulse Rate Respiratory Rate 14 14 Blood Pressure Pulse Oximetry 100 100 100 05/21/18 00:00 05/21/18 04:00 05/21/18 04:08 Temperature 36.5 C 37.2 C Pulse Rate 80 90 Respiratory Rate 14 14 14 Blood Pressure 130/54 L 127/53 L Pulse Oximetry 99 95 05/21/18 06:00 05/21/18 07:00 05/21/18 07:39 Temperature Pulse Rate 90 88 Respiratory Rate 14 14 14 Blood Pressure Pulse Oximetry 96 97 05/21/18 08:00 05/21/18 08:13 05/21/18 09:00 Temperature 37.0 C Pulse Rate 90 91 H Respiratory Rate 14 15 14 Blood Pressure Pulse Oximetry 98 97 97 05/21/18 10:00 05/21/18 11:00 05/21/18 12:00 Temperature 36.7 C Pulse Rate 89 89 84 Respiratory Rate 14 14 14 Blood Pressure Pulse Oximetry 95 97 98 05/21/18 12:10 05/21/18 13:00 05/21/18 14:00 Temperature Pulse Rate 88 91 H Respiratory Rate 14 14 14 Blood Pressure Pulse Oximetry 97 99 95 05/21/18 14:15 05/21/18 14:30 05/21/18 14:45 Temperature Pulse Rate 85 83 81 Respiratory Rate 14 14 14 Blood Pressure Pulse Oximetry 93 L 93 L 94 L 05/21/18 14:59 05/21/18 15:00 05/21/18 15:18 Temperature 36.6 C 36.9 C Pulse Rate 81 80 84 Respiratory Rate 14 14 14 Blood Pressure Pulse Oximetry 95 95 97 05/21/18 15:22 05/21/18 15:37 05/21/18 16:00 Temperature 36.8 C 36.6 C 36.5 C Pulse Rate 84 82 81 Respiratory Rate 14 14 14 Blood Pressure Pulse Oximetry 97 98 96 05/21/18 16:24 05/21/18 16:35 05/21/18 17:00 Temperature 36.5 C Pulse Rate 81 86 Respiratory Rate 14 14 14 Blood Pressure Pulse Oximetry 97 99 98 Intake & Output 05/20/18 05/21/18 05/21/18 18:59 06:59 18:59 Intake Total 1500 / 1500 2450 / 2450 1707 / 1707 Output Total 200 / 200 1250 / 1250 Balance 1300 / 1300 1200 / 1200 1707 / 1707 Weight 97.2 kg Intake: IV 1300 / 1300 550 / 550 1410 / 1410 Protonix Inj 80 MG In NS Inj 100 / 100 100 / 100 100 / 100 100 ML @ 10 mls/hr IV.CONT Q10H [facility] Rx#:[id number] Diprivan 1000 mg/100 ml Inj 1, 200 / 200 000 mg In 100 ml @ 5 MCG/KG/MIN 2.433 mls/hr IV.CONT TITRATE PRN Rx#:[id number] NS Inj 1,000 ML @ 100 mls/hr IV 1000 / 1000 1000 / 1000 .CONT .Q10H [facility] Rx#:[id number] Calcium Gluconate Inj 1 GM In 110 / 110 NS Inj 100 ML @ 110 mls/hr IV. SIG ONCE ONE Rx#:[id number] NS Inj 250 ML @ 15 mls/hr IV. 250 / 250 SIG ONCE [facility] Rx#:[id number] Ancef 1 GM Premix Inj 2 gm In 100 / 100 100 ml @ 0 mls/hr IV.SIG .STK- MED ONE Rx#:[id number] Flagyl 500 MG Inj 100 ML @ 0 100 / 100 mls/hr IV.SIG .STK-MED ONE Rx#: [id number] Oral 200 / 200 Anesthesia Amount 1900 / 1900 Intake (Blood Product) Amt 0 / 0 297 / 297 Plt Pheresis B Leukoreduced 0 / 0 Unit [id number] Plt Pheresis S Leukored Pas 297 / 297 Unit [id number] Rbc As-3 Leukoreduced Unit 0 / 0 [id number] Rbc As-3 Leukoreduced Unit 0 / 0 [id number] Rbc As-3 Leukoreduced Unit 0 / 0 [id number] Output: Emesis 200 / 200 Estimated Blood Loss 100 / 100 Urine Amount (Catheter) 750 / 750 Indwelling Urethral Catheter 750 / 750 Gastric Drainage 150 / 150 Orogastric Tube 150 / 150 Wound Vac Amount 250 / 250 Midline Abdomen 250 / 250 Other: Mode Setting Midline Abdomen Intermittent # Voids 2 Date of Last Bowel Movement 05/20/18 05/20/18 # Bowel Movements 0 Result Diagrams: 05/21/18 13:50 05/21/18 03:30 Objective Remarks: GENERAL: elderly female, lying in bed, intubated, sedated, critically ill. HEENT: Normocephalic. Atraumatic. Pupils equal, round, reactive, conjugate. Mucous membranes are moist NECK: Trachea is midline. There is no JVD. right IJ CVL in place, c/d/i. CHEST: equal chest rise. prvc. 40% fio2. peep 5. CARDIOVASCULAR: normal rate, regular rhythm. sinus. ABDOMEN: open abdomen. wound vac in place. midline incision. large amount of serosanguinous output from wound vac. Soft, nontender, nondistended. No guarding. MUSCULOSKELETAL: Pulses 2+. 1+ edema developing. NEUROLOGICAL: RASS -3. does not follow commands. deeply sedated given open abdomen. Assessment and Plan - Assessment and Plan Plan: Assessment: 82yF with amyloidosis and active GI bleed. s/p emergent IA embolization 05/19. s/p EGD 05/19 and again 05/20 with ischemia present. s/p emergent exploratory laparotomy with duodenal and jejunal resection, left in discontinuity with open abdomen. remains critically ill. continue to trend cbc, transfusing platelets and blood products as needed. keep deeply sedated for open abdomen. plan to go back to OR for washout tomorrow. Active upper GI bleed Acute hypoxic and hypercarbic respiratory failure Open abdomen severe acute anemia secondary to blood loss requiring transfusion- persistent duodenal ulcer Type II NSTEMI secondary to demand ischemia from severe anemia s/p exploratory laparotomy with duodenal, jejunal resection, left in discontinuity with open abdomen 05/20 s/p EGD 05/19 s/p EGD 05/20 s/p emergent IR embolization 05/19 severe acute thrombocytopenia acute protein calorie malnutrition- moderate to severe acute intravascular hypovolemia Plan: - keep in ICU - propofol, fentanyl for goal RASS -3 - no weaning of mechanical ventilation until abdomen closed - serially check cbc - transfuse to keep hgb > 7 - transfuse to keep plt > 50k - gen surgery: [place] involved - am cbc, bmp, mg, phos - ICU electrolyte protocol - strict NPO - OGT to LIWS - add mivf - SCDs Critical care medicine will continue to follow. critically ill. Critical care time: 40 minutes, actively managed hypovolemia and anemia requiring transfusion.
[2018-05-21] MEDS: fentaNYL 10 mcg/mL Premix Drip 2,500 MCG/250 ML BAG IV.SIG PRN (19:05)
[2018-05-21 22:30] LABS: Hematocrit 25.7 % (35.0-46.0); Hemoglobin 8.6 gm/dL (11.6-15.3)
[2018-05-22] MEDS: Propofol 1000 mg/100 ml Inj 1,000 MG/100 ML BOTTLE IV.CONT PRN ×4 (01:12→17:29)
[2018-05-22 05:28] LABS: Hematocrit 29.8 % (35.0-46.0); Hemoglobin 10.3 gm/dL (11.6-15.3); Mean Corpuscular HGB Conc 34.5 % (32.0-36.0); Mean Corpuscular Hemoglobin 29.9 pg (27.0-34.0); Mean Corpuscular Volume 86.5 fL (80.0-100.0); Mean Platelet Volume 9.2 fL (7.0-11.0); Platelet Count 51 th/mm3 (150-450); Red Blood Count 3.45 mil/mm3 (4.00-5.30); Red Cell Distribution Width 15.5 % (11.6-17.2); White Blood Count 6.8 th/mm3 (4.0-11.0)
[2018-05-22 05:51] LABS: Carbon Dioxide 24.2 meq/L (21.0-32.0); Magnesium 2.2 mg/dL (1.5-2.5); Potassium 3.9 meq/L (3.5-5.1)
[2018-05-22 06:00] LABS: Calcium-Albumin Corrected 8.6 mg/dL (8.5-10.1)
[2018-05-22] MEDS: Sod Chloride 0.9% Inj 1,000 ML IV.CONT SCH ×3 (06:40→23:01)
[2018-05-22] MEDS: Senna/Docusate Sodium 8.6/50 MG Tablet PO SCH ×2 (09:17→20:17)
[2018-05-22] MEDS: Lidocaine 5% Patch T-DERMAL SCH (09:25)
[2018-05-22] MEDS: Pantoprazole Inj 80 MG in Sodium Chlor 0.9% Inj 100 ML IV.CONT SCH ×4 (09:27→21:07)
[2018-05-22] MEDS: Heparin Central Flush 100 UNIT/ML 5 ML Vial IV.FLUSH SCH (09:27)
--- NOTE | 2018-05-22 09:31 | P.PNONC ---
Subjective Interval history: Patient heavily sedated. She is intubated. Objective Vital Signs/Intake & Output: Vital Signs 05/21/18 10:00 05/21/18 11:00 05/21/18 12:00 Temperature 98.0 F Pulse Rate 89 89 84 Respiratory Rate 14 14 14 Pulse Oximetry 95 97 98 05/21/18 12:10 05/21/18 13:00 05/21/18 14:00 Temperature Pulse Rate 88 91 H Respiratory Rate 14 14 14 Pulse Oximetry 97 99 95 05/21/18 14:15 05/21/18 14:30 05/21/18 14:45 Temperature Pulse Rate 85 83 81 Respiratory Rate 14 14 14 Pulse Oximetry 93 L 93 L 94 L 05/21/18 14:59 05/21/18 15:00 05/21/18 15:18 Temperature 97.8 F 98.4 F Pulse Rate 81 80 84 Respiratory Rate 14 14 14 Pulse Oximetry 95 95 97 05/21/18 15:22 05/21/18 15:37 05/21/18 16:00 Temperature 98.2 F 97.8 F 97.7 F Pulse Rate 84 82 81 Respiratory Rate 14 14 14 Pulse Oximetry 97 98 96 05/21/18 16:24 05/21/18 16:35 05/21/18 17:00 Temperature 97.7 F Pulse Rate 81 86 Respiratory Rate 14 14 14 Pulse Oximetry 97 99 98 05/21/18 17:10 05/21/18 17:20 05/21/18 17:30 Temperature Pulse Rate 83 78 72 Respiratory Rate 14 14 14 Pulse Oximetry 98 97 96 05/21/18 17:45 05/21/18 18:00 05/21/18 18:15 Temperature Pulse Rate 65 66 65 Respiratory Rate 14 14 14 Pulse Oximetry 96 97 98 05/21/18 18:19 05/21/18 18:30 05/21/18 18:45 Temperature 97.4 F L Pulse Rate 68 64 65 Respiratory Rate 14 14 14 Pulse Oximetry 98 99 98 05/21/18 19:00 05/21/18 20:00 05/21/18 20:19 Temperature 97.6 F Pulse Rate 72 81 Respiratory Rate 14 14 14 Pulse Oximetry 99 99 100 05/21/18 21:00 05/21/18 22:00 05/21/18 23:00 Temperature Pulse Rate 82 78 74 Respiratory Rate 14 14 14 Pulse Oximetry 98 98 99 05/21/18 23:41 05/22/18 00:00 05/22/18 00:18 Temperature 97.6 F 97.7 F Pulse Rate 75 75 78 Respiratory Rate 14 14 14 Pulse Oximetry 100 99 97 05/22/18 01:00 05/22/18 02:00 05/22/18 03:00 Temperature Pulse Rate 74 69 72 Respiratory Rate 14 14 14 Pulse Oximetry 99 98 98 05/22/18 04:00 05/22/18 04:34 05/22/18 05:00 Temperature 97.7 F Pulse Rate 78 76 71 Respiratory Rate 14 14 14 Pulse Oximetry 98 98 97 05/22/18 06:00 05/22/18 07:00 05/22/18 08:25 Temperature Pulse Rate 70 65 72 Respiratory Rate 14 14 14 Pulse Oximetry 97 97 99 Intake & Output 05/21/18 05/22/18 05/22/18 18:59 06:59 18:59 Intake Total 2807 / 2807 2950 / 2950 100 / 100 Output Total 1450 / 1450 1480 / 1480 200 / 200 Balance 1357 / 1357 1470 / 1470 -100 / -100 Weight 97.6 kg Intake: IV 2110 / 2110 2550 / 2550 100 / 100 Protonix Inj 80 MG In NS Inj 100 / 100 100 / 100 100 ML @ 10 mls/hr IV.CONT Q10H [facility] Rx#:[id number] Diprivan 1000 mg/100 ml Inj 1, 300 / 300 100 / 100 100 / 100 000 mg In 100 ml @ 5 MCG/KG/MIN 2.433 mls/hr IV.CONT TITRATE PRN Rx#:[id number] NS Inj 1,000 ML @ 125 mls/hr IV 1000 / 1000 1999 / 1999 .CONT .Q8H [facility] Rx#:[id number] Alburx 5% Inj 500 ML @ 250 mls/ 500 / 500 hr IV.SIG STAT STA Rx#:[id number] Calcium Gluconate Inj 1 GM In 110 / 110 NS Inj 100 ML @ 110 mls/hr IV. SIG ONCE ONE Rx#:[id number] NS Inj 250 ML @ 15 mls/hr IV. 100 / 100 100 / 100 SIG ONCE [facility] Rx#:[id number] fentaNYL 10 mcg/mL Premix Drip 250 / 250 2,500 mcg In 250 ml @ 50 MCG/HR 5 mls/hr IV.SIG TITRATE PRN Rx #:[id number] Intake (Blood Product) Amt 697 / 697 400 / 400 Plt Pheresis S Leukored Pas 297 / 297 Unit [id number] Rbc As-3 Leukoreduced Unit 400 / 400 [id number] Rbc As-3 Leukoreduced Unit 400 / 400 [id number] Output: Urine Amount (Catheter) 400 / 400 650 / 650 Indwelling Urethral Catheter 400 / 400 650 / 650 Gastric Drainage 300 / 300 300 / 300 200 / 200 Orogastric Tube 300 / 300 300 / 300 200 / 200 Wound Vac Amount 750 / 750 530 / 530 Midline Abdomen 750 / 750 530 / 530 Other: Mode Setting Midline Abdomen Continuous Continuous Date of Last Bowel Movement 05/22/18 # Bowel Movements 0 # Incontinent Bowel Movements 1 Result Diagrams: 05/22/18 04:20 05/22/18 04:20 Laboratory Results: Laboratory Results - last 24 hr 05/19/18 05/20/18 05/20/18 11:04 10:55 10:55 WBC RBC Hgb Hct MCV MCH MCHC RDW Plt Count MPV Puncture Site Patient Temperature O2 Saturation ABG pH ABG pCO2 ABG pO2 ABG HCO3 ABG O2 Content ABG Base Excess ABG Methemoglobin [place] Test Hemoglobin Carboxyhemoglobin O2 Delivery Device Vent Setting Inspired O2 Critical Value Sodium Potassium Chloride Carbon Dioxide Anion Gap BUN Creatinine Estimated GFR POC Glucose Random Glucose Calcium Calcium Adj for Albumin Phosphorus Magnesium Lactate Dehydrogenase Albumin Methylmalonic Acid 0.22 MTS Gel Crossmatch See Detail See Detail Bld Prod Order Comment 05/20/18 05/21/18 05/21/18 10:55 10:17 13:50 WBC 15.6 H RBC 3.26 L Hgb 9.6 L Hct 27.5 L MCV 84.4 MCH 29.6 MCHC 35.1 RDW 16.1 Plt Count 65 L MPV 10.2 Puncture Site Jess Patient Temperature 98.6 O2 Saturation 92 ABG pH 7.36 L ABG pCO2 43 H ABG pO2 72 ABG HCO3 23 ABG O2 Content 12.3 ABG Base Excess -1.4 ABG Methemoglobin 1.3 [place] Test Present Hemoglobin 9.5 L Carboxyhemoglobin 1.4 O2 Delivery Device Vent Vent Setting Prvc 14/500/1.0/+5 Inspired O2 40 Critical Value No Sodium Potassium Chloride Carbon Dioxide Anion Gap BUN Creatinine Estimated GFR POC Glucose Random Glucose Calcium Calcium Adj for Albumin Phosphorus Magnesium Lactate Dehydrogenase Albumin Methylmalonic Acid MTS Gel Crossmatch See Detail Bld Prod Order Comment 05/21/18 05/21/18 05/21/18 14:35 22:05 23:29 WBC RBC Hgb 8.6 L Hct 25.7 L MCV MCH MCHC RDW Plt Count MPV Puncture Site Patient Temperature O2 Saturation ABG pH ABG pCO2 ABG pO2 ABG HCO3 ABG O2 Content ABG Base Excess ABG Methemoglobin [place] Test Hemoglobin Carboxyhemoglobin O2 Delivery Device Vent Setting Inspired O2 Critical Value Sodium Potassium Chloride Carbon Dioxide Anion Gap BUN Creatinine Estimated GFR POC Glucose Random Glucose Calcium Calcium Adj for Albumin Phosphorus Magnesium Lactate Dehydrogenase Albumin Methylmalonic Acid MTS Gel Crossmatch See Detail See Detail Bld Prod Order Comment 05/22/18 05/22/18 05/22/18 00:43 04:20 04:20 WBC 6.8 D RBC 3.45 L Hgb 10.3 L Hct 29.8 L MCV 86.5 MCH 29.9 MCHC 34.5 RDW 15.5 Plt Count 51 L MPV 9.2 Puncture Site Patient Temperature O2 Saturation ABG pH ABG pCO2 ABG pO2 ABG HCO3 ABG O2 Content ABG Base Excess ABG Methemoglobin [place] Test Hemoglobin Carboxyhemoglobin O2 Delivery Device Vent Setting Inspired O2 Critical Value Sodium 144 Potassium 3.9 Chloride 115 H Carbon Dioxide 24.2 Anion Gap 5 BUN 26 H Creatinine 0.74 Estimated GFR 75 L POC Glucose 146 H Random Glucose 133 H Calcium 7.0 L* Calcium Adj for Albumin 8.6 Phosphorus 3.0 Magnesium 2.2 Lactate Dehydrogenase 154 Albumin 2.0 L D Methylmalonic Acid MTS Gel Crossmatch Bld Prod Order Comment Medications: Active Medications Generic Name Dose Route Start Last Admin Trade Name Freq PRN Reason Stop Dose Admin Hydrocodone Bitart/Acetaminophen 1 tab 05/19/18 10:01 05/19/18 13:15 [place] 5/325 PO 1 tab Q6H PRN Administration Pain 2-5 Hydrocodone Bitart/Acetaminophen 1 tab 05/19/18 10:01 05/19/18 20:10 [place] 10/325 PO 1 tab Q6H PRN Administration Pain 6-10 Albuterol 1 ampul 05/21/18 23:30 05/22/18 08:25 Duoneb Neb (Akin) NEB 1 ampul Q6HR NEB [facility] Administration Heparin Sodium (Porcine) 0 unit 05/21/18 09:00 05/21/18 12:04 Heparin Central Flush IV.FLUSH 100 unit DAILY [facility] Administration Hydromorphone HCl 2 mg 05/19/18 21:41 05/20/18 16:00 Dilaudid Pf Inj IV.PUSH 2 mg Q4H PRN Administration PAIN SCALE 6 -10 Sodium Chloride 1,000 mls @ 125 mls/hr 05/17/18 06:15 05/22/18 06:40 Ns Inj IV.CONT 100 mls/hr .Q8H [facility] Administration Pantoprazole Sodium 80 mg/ 100 mls @ 10 mls/hr 05/17/18 09:00 05/21/18 23:34 Sodium Chloride IV.CONT 10 mls/hr Q10H [facility] Administration Sodium Chloride 500 mls @ 30 mls/hr 05/18/18 07:00 05/18/18 07:00 Ns Inj IV.SIG Not Given .Q10H [facility] Fentanyl 2,500 mcg in 250 mls @ 5 mls/hr 05/20/18 20:00 05/22/18 03:32 Fentanyl 10 Mcg/Ml Premix Drip IV.SIG 150 mcg/hr TITRATE PRN 15 mls/hr Per Protocol Titration Protocol 50 MCG/HR Propofol 1,000 mg in 100 mls @ 2.433 mls/hr 05/20/18 22:11 05/22/18 07:18 Diprivan 1000 Mg/100 Ml Inj IV.CONT 40 mcg/kg/min TITRATE PRN 19.46 mls/hr Per Protocol Administration Protocol 5 MCG/KG/MIN Sodium Chloride 250 mls @ 15 mls/hr 05/21/18 23:45 05/22/18 02:30 Ns Inj IV.SIG 05/22/18 16:24 Infused ONCE [facility] Infusion Lidocaine HCl 2 patch 05/19/18 09:30 05/21/18 12:05 Lidoderm 5% Patch.12 Hr T-DERMAL 2 patch DAILY [facility] Administration Methylprednisolone Sodium Succinate 60 mg 05/19/18 23:00 05/21/18 23:35 Solumedrol Inj IV.PUSH 60 mg Q12H [facility] Administration Ondansetron HCl 4 mg 05/17/18 06:10 05/19/18 13:17 Zofran Inj IV.PUSH 4 mg Q6H PRN Administration NAUSEA OR VOMITING Patch Removal 1 each 05/19/18 21:00 05/21/18 22:20 Remove Old Patch T-DERMAL 1 each BID [facility] Administration Prochlorperazine Edisylate 10 mg 05/17/18 09:06 05/19/18 00:08 Compazine Inj IV.PUSH 10 mg Q6H PRN Administration NAUSEA Senna/Docusate Sodium 1 tab 05/17/18 09:00 05/22/18 09:17 Jessie-Colace PO Not Given BID [facility] Sodium Chloride 0 ml 05/21/18 09:00 05/21/18 12:05 Ns Flush IV.FLUSH 2 ml DAILY [facility] Administration Objective Remarks: GENERAL: Critically ill on ventilator. G-tube present. Has wound VAC. Keller catheter. Multiple lines. SKIN: Warm and dry. HEAD: Normocephalic. EYES: No scleral icterus. No injection or drainage. NECK: Supple, trachea midline. No JVD or lymphadenopathy. LYMPHATIC: No adenopathy. CARDIOVASCULAR: Regular rate and rhythm without murmurs. RESPIRATORY: Breath sounds equal bilaterally. No accessory muscle use. GASTROINTESTINAL: Markedly distended with wound VAC present. EXTREMITIES: +1 edema MUSCULOSKELETAL: Poor muscle tone NEUROLOGICAL: Sedated Assessment/Plan - Plan Ms. Perea is a pleasant 82-year-old lady with a history of lung cancer, multifocal amyloidosis, lymphomoplasmacytic disorder and now gastrointestinal bleeding. 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 She is not having any overt bleeding. Platelet count has fallen slightly but not to a level which is problematic. At admission she had a platelet count of approximately 20,000 with large platelets suggesting ITP and for this reason I gave her steroids. She remains critically ill and in speaking with Dr. James this morning she will probably be going for a second surgery tomorrow to close the wound and do a gastrojejunostomy. 1: Regarding the working diagnosis of ITP, will continue the steroids but decrease the Solu-Medrol to 60 mg daily as it can interfere with healing and increase the risk of infectious complications. Will follow the CBC and platelet count and if the platelet count improves will decrease the steroids further. It usually takes 3 or 4 days for steroids to work in ITP
[2018-05-22] MEDS ORDERED: MethylPREDNISolone Sod Succinate Inj 40 MG/ML Vial IV.PUSH ONE (10:45)
--- NOTE | 2018-05-22 11:34 | P.PNGI ---
Subjective Interval history: Patient intubated and mechanically ventilated Per bedside RN, no obvious bleeding noted. Reported 3 dark BMs overnight Patient able to follow simple commands Physical Exam Vital signs: Vital Signs 05/21/18 12:00 05/21/18 12:10 05/21/18 13:00 Temperature 98.0 F Pulse Rate 84 88 Respiratory Rate 14 14 14 Pulse Oximetry 98 97 99 05/21/18 14:00 05/21/18 14:15 05/21/18 14:30 Temperature Pulse Rate 91 H 85 83 Respiratory Rate 14 14 14 Pulse Oximetry 95 93 L 93 L 05/21/18 14:45 05/21/18 14:59 05/21/18 15:00 Temperature 97.8 F Pulse Rate 81 81 80 Respiratory Rate 14 14 14 Pulse Oximetry 94 L 95 95 05/21/18 15:18 05/21/18 15:22 05/21/18 15:37 Temperature 98.4 F 98.2 F 97.8 F Pulse Rate 84 84 82 Respiratory Rate 14 14 14 Pulse Oximetry 97 97 98 05/21/18 16:00 05/21/18 16:24 05/21/18 16:35 Temperature 97.7 F 97.7 F Pulse Rate 81 81 Respiratory Rate 14 14 14 Pulse Oximetry 96 97 99 05/21/18 17:00 05/21/18 17:10 05/21/18 17:20 Temperature Pulse Rate 86 83 78 Respiratory Rate 14 14 14 Pulse Oximetry 98 98 97 05/21/18 17:30 05/21/18 17:45 05/21/18 18:00 Temperature Pulse Rate 72 65 66 Respiratory Rate 14 14 14 Pulse Oximetry 96 96 97 05/21/18 18:15 05/21/18 18:19 05/21/18 18:30 Temperature 97.4 F L Pulse Rate 65 68 64 Respiratory Rate 14 14 14 Pulse Oximetry 98 98 99 05/21/18 18:45 05/21/18 19:00 05/21/18 20:00 Temperature 97.6 F Pulse Rate 65 72 81 Respiratory Rate 14 14 14 Pulse Oximetry 98 99 99 05/21/18 20:19 05/21/18 21:00 05/21/18 22:00 Temperature Pulse Rate 82 78 Respiratory Rate 14 14 14 Pulse Oximetry 100 98 98 05/21/18 23:00 05/21/18 23:41 05/22/18 00:00 Temperature 97.6 F Pulse Rate 74 75 75 Respiratory Rate 14 14 14 Pulse Oximetry 99 100 99 05/22/18 00:18 05/22/18 01:00 05/22/18 02:00 Temperature 97.7 F Pulse Rate 78 74 69 Respiratory Rate 14 14 14 Pulse Oximetry 97 99 98 05/22/18 03:00 05/22/18 04:00 05/22/18 04:34 Temperature 97.7 F Pulse Rate 72 78 76 Respiratory Rate 14 14 14 Pulse Oximetry 98 98 98 05/22/18 05:00 05/22/18 06:00 05/22/18 07:00 Temperature Pulse Rate 71 70 65 Respiratory Rate 14 14 14 Pulse Oximetry 97 97 97 05/22/18 08:00 05/22/18 08:25 05/22/18 09:00 Temperature 96.8 F L Pulse Rate 84 72 82 Respiratory Rate 14 14 14 Pulse Oximetry 97 99 98 05/22/18 10:00 Temperature Pulse Rate 86 Respiratory Rate 14 Pulse Oximetry 100 Intake & Output 05/21/18 05/22/18 05/22/18 18:59 06:59 18:59 Intake Total 2807 / 2807 2950 / 2950 200 / 200 Output Total 1450 / 1450 1480 / 1480 200 / 200 Balance 1357 / 1357 1470 / 1470 0 / 0 Weight 97.6 kg Intake: IV 2110 / 2110 2550 / 2550 200 / 200 Protonix Inj 80 MG In NS Inj 100 / 100 100 / 100 100 / 100 100 ML @ 10 mls/hr IV.CONT Q10H [facility] Rx#:[id number] Diprivan 1000 mg/100 ml Inj 1, 300 / 300 100 / 100 100 / 100 000 mg In 100 ml @ 5 MCG/KG/MIN 2.433 mls/hr IV.CONT TITRATE PRN Rx#:[id number] NS Inj 1,000 ML @ 125 mls/hr IV 1000 / 1000 1999 / 1999 .CONT .Q8H [facility] Rx#:[id number] Alburx 5% Inj 500 ML @ 250 mls/ 500 / 500 hr IV.SIG STAT STA Rx#:[id number] Calcium Gluconate Inj 1 GM In 110 / 110 NS Inj 100 ML @ 110 mls/hr IV. SIG ONCE ONE Rx#:[id number] NS Inj 250 ML @ 15 mls/hr IV. 100 / 100 100 / 100 SIG ONCE [facility] Rx#:[id number] fentaNYL 10 mcg/mL Premix Drip 250 / 250 2,500 mcg In 250 ml @ 50 MCG/HR 5 mls/hr IV.SIG TITRATE PRN Rx #:[id number] Intake (Blood Product) Amt 697 / 697 400 / 400 Plt Pheresis S Leukored Pas 297 / 297 Unit [id number] Rbc As-3 Leukoreduced Unit 400 / 400 [id number] Rbc As-3 Leukoreduced Unit 400 / 400 [id number] Output: Urine Amount (Catheter) 400 / 400 650 / 650 Indwelling Urethral Catheter 400 / 400 650 / 650 Gastric Drainage 300 / 300 300 / 300 200 / 200 Orogastric Tube 300 / 300 300 / 300 200 / 200 Wound Vac Amount 750 / 750 530 / 530 Midline Abdomen 750 / 750 530 / 530 Other: Mode Setting Midline Abdomen Continuous Continuous Continuous Date of Last Bowel Movement 05/22/18 05/22/18 # Bowel Movements 0 # Incontinent Bowel Movements 1 - Constitutional chronically ill appearing Comments: Intubated and mechanically ventilated - Routine HEENT Exam Head: Present: normocephalic - Routine Respiratory Exam Present: patient mechanically ventilated, CTA bilaterally - Routine Cardiovascular Exam Present: RRR - Routine Abdominal Exam Present: normoactive bowel sounds, distended Comments: Midline abdominal incision with dressing and wound VAC in place - Routine Skin Exam Present: dry, warm - Urinary Catheter Management Indwelling Urethral Catheter Cath placed during this visit: yes Reason for continuing: Hourly intake/output Insertion date: 05/20/18 Insertion time: 19:55 Results - Labs CBC & Chem 7: 05/22/18 04:20 05/22/18 04:20 Laboratory Results - last 24 hr 05/19/18 05/20/18 05/20/18 11:04 10:55 10:55 WBC RBC Hgb Hct MCV MCH MCHC RDW Plt Count MPV Sodium Potassium Chloride Carbon Dioxide Anion Gap BUN Creatinine Estimated GFR POC Glucose Random Glucose Calcium Calcium Adj for Albumin Phosphorus Magnesium Lactate Dehydrogenase Albumin Methylmalonic Acid 0.22 MTS Gel Crossmatch See Detail See Detail Bld Prod Order Comment 05/20/18 05/21/18 05/21/18 10:55 13:50 14:35 WBC 15.6 H RBC 3.26 L Hgb 9.6 L Hct 27.5 L MCV 84.4 MCH 29.6 MCHC 35.1 RDW 16.1 Plt Count 65 L MPV 10.2 Sodium Potassium Chloride Carbon Dioxide Anion Gap BUN Creatinine Estimated GFR POC Glucose Random Glucose Calcium Calcium Adj for Albumin Phosphorus Magnesium Lactate Dehydrogenase Albumin Methylmalonic Acid MTS Gel Crossmatch See Detail See Detail Bld Prod Order Comment 05/21/18 05/21/18 05/22/18 22:05 23:29 00:43 WBC RBC Hgb 8.6 L Hct 25.7 L MCV MCH MCHC RDW Plt Count MPV Sodium Potassium Chloride Carbon Dioxide Anion Gap BUN Creatinine Estimated GFR POC Glucose 146 H Random Glucose Calcium Calcium Adj for Albumin Phosphorus Magnesium Lactate Dehydrogenase Albumin Methylmalonic Acid MTS Gel Crossmatch See Detail Bld Prod Order Comment 05/22/18 05/22/18 04:20 04:20 WBC 6.8 D RBC 3.45 L Hgb 10.3 L Hct 29.8 L MCV 86.5 MCH 29.9 MCHC 34.5 RDW 15.5 Plt Count 51 L MPV 9.2 Sodium 144 Potassium 3.9 Chloride 115 H Carbon Dioxide 24.2 Anion Gap 5 BUN 26 H Creatinine 0.74 Estimated GFR 75 L POC Glucose Random Glucose 133 H Calcium 7.0 L* Calcium Adj for Albumin 8.6 Phosphorus 3.0 Magnesium 2.2 Lactate Dehydrogenase 154 Albumin 2.0 L D Methylmalonic Acid MTS Gel Crossmatch Bld Prod Order Comment Assessment and Plan (1) GI bleed Status: Acute Code(s): K92.2 - Gastrointestinal hemorrhage, unspecified - Plan This patient is an 82-year-old female who presented to the emergency room at [facility] with complaint of nausea vomiting and abdominal pain. Past medical history significant for right lower lobe lung mass and Sjogren's syndrome. Surgical history significant for cardiac stent and lobectomy of lung. Upon consultation, patient reports onset of nausea with projectile vomiting since 2 AM this morning. States that this was precipitated by 24 hours of experiencing decreased appetite with nausea and generalized weakness. Patient states during the 2 episodes of projectile vomiting at home she also had formed black tarry stools. Last colonoscopy done in February 2018 revealed diverticulosis in the sigmoid colon with multiple polyps, internal and external hemorrhoids. She reports emesis was clear and denies hematemesis. Patient endorses taking aspirin 81 mg p.o. daily and denies any use of NSAIDs. She reports history of gastritis noted on EGD done in February 2018. History of GERD for which patient takes Protonix 40 mg p.o. daily. Patient denies any known family history of gastrointestinal disorders and denies any use of tobacco or alcohol products. GI bleed -Onset 2 AM this morning, nausea with projectile vomiting and black tarry stools. -03/11/2018 EGD-- 1.Gastritis antrum-biopsy duodenum normal-biopsy esophagitis grade B-biopsy 2.Retroflexed views revealed a hiatal hernia -03/11/2018 colonoscopy-- 1. Diverticulosis sigmoid,descending polyp sessile hepatic flexure-8 mm-hot snare polypectomy polyp sessile 8 mm cecum-hot snare polypectomy with complete removal very tortuous and floppy colon cecum seen , not able to enter cap due to looping, but seen well possible adhesions 2. There was no evidence of random biopsies from ascending and descending colon to r/o microscopic colitis 3. Retroflexed views revealed internal hemorrhoids 4. Retroflexed views revealed small internal hemorrhoids 5. Revealed external hemorrhoids -05/17/2018 hemoglobin 7.6 hematocrit 22.5 GI bleed Per nurse, pt with lots of epigastric pain, has to be placed on Dilaudid to get relief. Had two BMs last night with dark old bloody clots. Received 3 units of blood yesterday, hgb today is 7.4, holding increased from 5.6. No nausea or vomiting. 05/18/2018 EGD revealed the following findings-- 1. The esophagus was otherwise normal 2. There was mild gastritis in the entire examined stomach; biopsy was performed 3. Large amount of fresh blood covering the stomach, the entire mucosa was inspected after suctioning, no abnormalities or source of bleeding identified 4. Normal duodenal mucosa 5. Retroflexed views revealed Large amount of fresh blood GI Bleed Scan Nuclear Medicine 05/19/18 CONCLUSION: 1. 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 Patient was emergently brought to the interventional radiology department from the nuclear medicine department for angiography and intervention. Mesenteric Arteriogram 05/19/18 CONCLUSION: 1. 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 2. 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 Case discussed with Dr. Scott, will give Plt as this might help with her bleeding 05/21/2018 -Patient intubated and mechanically ventilated -No active bleeding reported. -Mid abdominal incision with dressing and wound VAC present. -Orogastric tube with estimated 50 cc of drainage noted. -05/20/2018 enteroscopy revealed the following findings: Esophagus: Normal Stomach full of blood Duodenum full of blood Proximal jejunum full of blood the mucosa looked ischemic with discoloration and grayish mucosa 05/20/2018 CT abdomen and pelvis: 1. Nonspecific, nonobstructive bowel gas pattern which may represent a mild ileus or be related to the recent endoscopy and insufflation of air. There is no focal wall thickening or inflammatory change. There is no free air or fluid. 2. Nonobstructing left renal calculi. 3. Small effusions and mild consolidative opacity in both lung bases. > Patient is post-op day 1 exploratory laparotomy with resection of the duodenum including the duodenal diverticulum and proximal jejunum. > 05/21/2018--WBC 17.5 hemoglobin 9.3 hematocrit 27.1 stable, platelet count 69 05/22/2018 3 dark BMs reported overnight.+ Abdominal distention No active bleeding reported by bedside RN- surgery to reevaluate patient per RN Mid abdominal incision with dressing and wound VAC present 05/22/2018 hemoglobin 10.3 hematocrit 29.8 platelet count 51 Plan -N.p.o. -Orogastric tube to low intermittent wall suction -Continue IV hydration -Continue pantoprazole infusion -Antiemetics as per attending -Monitor for bleeding -Monitor hemoglobin and hematocrit closely -Supportive care -GI will sign off at this time. Plan of care as per surgery This patient has been seen by myself and Dr. Che and this note is written on his behalf - Attending Attestation Dr. Che
[2018-05-22] MEDS: fentaNYL 10 mcg/mL Premix Drip 2,500 MCG/250 ML BAG IV.SIG PRN (12:04)
--- NOTE | 2018-05-22 16:45 | P.PNCC ---
Subjective Subjective Remarks/Hospital Course: Hospital Course: 82yF with history of amyloidosis who presented with GI bleeding, hypotension, and severe anemia. originally admitted to the floor. hgb continued to downtrend despite transfusions. today taken for EGD which found blood in the stomach and clot, but no active bleeding. despite this, hgb still did not improve. taken for bleeding scan which was very +. discussed case with Dr. Garcia/Dr. Garland in IR. review of admission CT abd/pelvis demonstrates possible bleeding at duodenal bulb concerning for ulceration. Taken emergently to IR for embolization which appears to be successful. I evaluated the patient upon arrival to the ICU post-IR procedure. she is stable. complaining of hip pain. hgb has improved appropriately. she denies other complaints. she asked me not to look at her groin sites because "my hips hurt and I am tired." Recent evaluation by bedside RN is without hematoma, and this evaluation is deferred at patient's request (bedside RN to continue to monitor for signs of hematoma). remainder of ROS negative. Subjective: 05/20: doing well. complaining of moderate abdominal pain 5/10. receiving iv dilaudid currently. plan for EGD today. hgb dropped from 7.8 to 7.4, but slightly more tachycardic today, and I am worried about ongoing bleeding, although it does appear to be much slower clinically than yesterday. I discussed with GI COOLING SYSTEM OPERATOR that per my conversation with IR, the lesion may be in the 4th portion of the duodenum near the ligament and it may require further investigation that usual EGD, and possibly push enteroscopy. She stated she would convey to the proceduralist. Dr. Shin suggests type II NSTEMI secondary to anemia and I agree completely with his assessment. Given that she is going soon for repeat EGD with anesthesia, will give 1 additional unit of prbc as she clearly has demonstrated she needs higher hematocrit for oxygen carrying capacity to her known ischemic CAD lesions. 05/21: s/p exploratory laparotomy last night. open abdomen. hgb stable. became acutely hypotensive with increased wound vac output one time today- emergently gave 1 unit prbc and 1 unit plt empirically given sudden change in condition. significant 3rd space losses requiring additional resuscitative efforts. remains deeply sedated. off vasopressors. remains intubated. 05/22: more hemodynamically stable today. hgb stable. still high wound-vac output with 300-500mL/12h. uop remains adequate at 70-80mL/hr, but Cr slightly elevated over baseline. unable to start diuresis yet and clinically although developing anasarca in the tissues, appears intravascularly euvolemic but not overloaded. likely will not tolerate diuresis efforts without significant kidney injury at this present juncture. needs bringback and washout in OR, but will leave timing of this to general surgery. Objective Vital Signs / I&O: Vital Signs 05/21/18 17:00 05/21/18 17:10 05/21/18 17:20 Temperature Pulse Rate 86 83 78 Respiratory Rate 14 14 14 Pulse Oximetry 98 98 97 05/21/18 17:30 05/21/18 17:45 05/21/18 18:00 Temperature Pulse Rate 72 65 66 Respiratory Rate 14 14 14 Pulse Oximetry 96 96 97 05/21/18 18:15 05/21/18 18:19 05/21/18 18:30 Temperature 36.3 C L Pulse Rate 65 68 64 Respiratory Rate 14 14 14 Pulse Oximetry 98 98 99 05/21/18 18:45 05/21/18 19:00 05/21/18 20:00 Temperature 36.4 C Pulse Rate 65 72 81 Respiratory Rate 14 14 14 Pulse Oximetry 98 99 99 05/21/18 20:19 05/21/18 21:00 05/21/18 22:00 Temperature Pulse Rate 82 78 Respiratory Rate 14 14 14 Pulse Oximetry 100 98 98 05/21/18 23:00 05/21/18 23:41 05/22/18 00:00 Temperature 36.4 C Pulse Rate 74 75 75 Respiratory Rate 14 14 14 Pulse Oximetry 99 100 99 05/22/18 00:18 05/22/18 01:00 05/22/18 02:00 Temperature 36.5 C Pulse Rate 78 74 69 Respiratory Rate 14 14 14 Pulse Oximetry 97 99 98 05/22/18 03:00 05/22/18 04:00 05/22/18 04:34 Temperature 36.5 C Pulse Rate 72 78 76 Respiratory Rate 14 14 14 Pulse Oximetry 98 98 98 05/22/18 05:00 05/22/18 06:00 05/22/18 07:00 Temperature Pulse Rate 71 70 65 Respiratory Rate 14 14 14 Pulse Oximetry 97 97 97 05/22/18 08:00 05/22/18 08:25 05/22/18 09:00 Temperature 36.0 C L Pulse Rate 84 72 82 Respiratory Rate 14 14 14 Pulse Oximetry 97 99 98 05/22/18 10:00 05/22/18 11:00 05/22/18 12:00 Temperature 36.6 C Pulse Rate 86 79 84 Respiratory Rate 14 14 14 Pulse Oximetry 100 100 100 05/22/18 12:19 05/22/18 13:00 05/22/18 14:00 Temperature 36.5 C 36.6 C Pulse Rate 75 78 Respiratory Rate 14 14 14 Pulse Oximetry 98 97 100 05/22/18 15:00 05/22/18 16:00 Temperature 36.5 C 36.2 C L Pulse Rate 77 69 Respiratory Rate 14 14 Pulse Oximetry 99 97 Intake & Output 05/21/18 05/22/18 05/22/18 18:59 06:59 18:59 Intake Total 2807 / 2807 2950 / 2950 1550 / 1550 Output Total 1450 / 1450 1480 / 1480 200 / 200 Balance 1357 / 1357 1470 / 1470 1350 / 1350 Weight 97.6 kg Intake: IV 2110 / 2110 2550 / 2550 1550 / 1550 Protonix Inj 80 MG In NS Inj 100 / 100 100 / 100 100 / 100 100 ML @ 10 mls/hr IV.CONT Q10H [facility] Rx#:[id number] Diprivan 1000 mg/100 ml Inj 1, 300 / 300 100 / 100 200 / 200 000 mg In 100 ml @ 5 MCG/KG/MIN 2.433 mls/hr IV.CONT TITRATE PRN Rx#:[id number] NS Inj 1,000 ML @ 125 mls/hr IV 1000 / 1000 2000 / 2000 1000 / 1000 .CONT .Q8H [facility] Rx#:[id number] Alburx 5% Inj 500 ML @ 250 mls/ 500 / 500 hr IV.SIG STAT STA Rx#:[id number] Calcium Gluconate Inj 1 GM In 110 / 110 NS Inj 100 ML @ 110 mls/hr IV. SIG ONCE ONE Rx#:[id number] NS Inj 250 ML @ 15 mls/hr IV. 100 / 100 100 / 100 SIG ONCE [facility] Rx#:[id number] fentaNYL 10 mcg/mL Premix Drip 250 / 250 250 / 250 2,500 mcg In 250 ml @ 50 MCG/HR 5 mls/hr IV.SIG TITRATE PRN Rx #:[id number] Intake (Blood Product) Amt 697 / 697 400 / 400 Plt Pheresis S Leukored Pas 297 / 297 Unit [id number] Rbc As-3 Leukoreduced Unit 400 / 400 [id number] Rbc As-3 Leukoreduced Unit 400 / 400 [id number] Output: Urine Amount (Catheter) 400 / 400 650 / 650 Indwelling Urethral Catheter 400 / 400 650 / 650 Gastric Drainage 300 / 300 300 / 300 200 / 200 Orogastric Tube 300 / 300 300 / 300 200 / 200 Wound Vac Amount 750 / 750 530 / 530 Midline Abdomen 750 / 750 530 / 530 Other: Mode Setting Midline Abdomen Continuous Continuous Continuous Date of Last Bowel Movement 05/22/18 05/22/18 # Bowel Movements 0 # Incontinent Bowel Movements 1 Result Diagrams: 05/22/18 04:20 05/22/18 04:20 Objective Remarks: GENERAL: elderly female, lying in bed, intubated, sedated, critically ill. HEENT: Normocephalic. Atraumatic. Pupils equal, round, reactive, conjugate. Mucous membranes are moist NECK: Trachea is midline. There is no JVD. right IJ CVL in place, c/d/i. CHEST: equal chest rise. prvc. 40% fio2. peep 5. CARDIOVASCULAR: normal rate, regular rhythm. sinus. ABDOMEN: open abdomen. wound vac in place. midline incision. large amount of serosanguinous output from wound vac. Soft, nontender, nondistended. No guarding. MUSCULOSKELETAL: Pulses 2+. 1+ edema developing. NEUROLOGICAL: RASS -3. does not follow commands. deeply sedated given open abdomen. Assessment and Plan - Assessment and Plan Plan: Assessment: 82yF with amyloidosis and active GI bleed. s/p emergent IA embolization 05/19. s/p EGD 05/19 and again 05/20 with ischemia present. s/p emergent exploratory laparotomy with duodenal and jejunal resection, left in discontinuity with open abdomen. remains critically ill. continue to trend cbc. keep deeply sedated for open abdomen. plan to go back to OR soon. will defer to gen surg team. Active upper GI bleed Acute hypoxic and hypercarbic respiratory failure Open abdomen severe acute anemia secondary to blood loss requiring transfusion- persistent duodenal ulcer Type II NSTEMI secondary to demand ischemia from severe anemia s/p exploratory laparotomy with duodenal, jejunal resection, left in discontinuity with open abdomen 05/20 s/p EGD 05/19 s/p EGD 05/20 s/p emergent IR embolization 05/19 severe acute thrombocytopenia acute protein calorie malnutrition- moderate to severe acute intravascular hypovolemia Plan: - keep in ICU - propofol, fentanyl for goal RASS -3 - no weaning of mechanical ventilation until abdomen closed - serially check cbc - transfuse to keep hgb > 7 - transfuse to keep plt > 50k - gen surgery: Jacob involved - am cbc, bmp, mg, phos - ICU electrolyte protocol - strict NPO - OGT to LIWS - continue NS @ 100cc/hr - ideally would like to diurese, but wound vac draining 300-500mL/12h and at this point, intravascularly euvolemic. Cr still slightly elevated. likely not going to tolerate any efforts at diuresis just yet. - [facility] [place] Critical care medicine will continue to follow. critically ill. Critical care time: 32 minutes, actively managed hypovolemia and anemia requiring transfusion.
--- NOTE | 2018-05-22 17:05 | P.PNGS ---
Subjective Patient reports: no new complaints (Patient remains ventilated and sedated. She is a very stable day. Her blood pressures been stable. Her heart rate is in the 60s. She is ventilating and oxygenating well. Her orogastric drainage has remained bilious. There is no evidence of bleeding proximally. She has had 3 maroon stools consistent with the blood from previous bleeding but no evidence of new bleeding.) Physical Exam Vital signs: Vital Signs 05/21/18 17:10 05/21/18 17:20 05/21/18 17:30 Temperature Pulse Rate 83 78 72 Respiratory Rate 14 14 14 Pulse Oximetry 98 97 96 05/21/18 17:45 05/21/18 18:00 05/21/18 18:15 Temperature Pulse Rate 65 66 65 Respiratory Rate 14 14 14 Pulse Oximetry 96 97 98 05/21/18 18:19 05/21/18 18:30 05/21/18 18:45 Temperature 97.4 F L Pulse Rate 68 64 65 Respiratory Rate 14 14 14 Pulse Oximetry 98 99 98 05/21/18 19:00 05/21/18 20:00 05/21/18 20:19 Temperature 97.6 F Pulse Rate 72 81 Respiratory Rate 14 14 14 Pulse Oximetry 99 99 100 05/21/18 21:00 05/21/18 22:00 05/21/18 23:00 Temperature Pulse Rate 82 78 74 Respiratory Rate 14 14 14 Pulse Oximetry 98 98 99 05/21/18 23:41 05/22/18 00:00 05/22/18 00:18 Temperature 97.6 F 97.7 F Pulse Rate 75 75 78 Respiratory Rate 14 14 14 Pulse Oximetry 100 99 97 05/22/18 01:00 05/22/18 02:00 05/22/18 03:00 Temperature Pulse Rate 74 69 72 Respiratory Rate 14 14 14 Pulse Oximetry 99 98 98 05/22/18 04:00 05/22/18 04:34 05/22/18 05:00 Temperature 97.7 F Pulse Rate 78 76 71 Respiratory Rate 14 14 14 Pulse Oximetry 98 98 97 05/22/18 06:00 05/22/18 07:00 05/22/18 08:00 Temperature 96.8 F L Pulse Rate 70 65 84 Respiratory Rate 14 14 14 Pulse Oximetry 97 97 97 05/22/18 08:25 05/22/18 09:00 05/22/18 10:00 Temperature Pulse Rate 72 82 86 Respiratory Rate 14 14 14 Pulse Oximetry 99 98 100 05/22/18 11:00 05/22/18 12:00 05/22/18 12:19 Temperature 97.9 F Pulse Rate 79 84 Respiratory Rate 14 14 14 Pulse Oximetry 100 100 98 05/22/18 13:00 05/22/18 14:00 05/22/18 15:00 Temperature 97.7 F 97.9 F 97.7 F Pulse Rate 75 78 77 Respiratory Rate 14 14 14 Pulse Oximetry 97 100 99 05/22/18 16:00 05/22/18 16:44 Temperature 97.2 F L Pulse Rate 69 66 Respiratory Rate 14 14 Pulse Oximetry 97 97 Intake & Output 05/21/18 05/22/18 05/22/18 18:59 06:59 18:59 Intake Total 2807 / 2807 2950 / 2950 1550 / 1550 Output Total 1450 / 1450 1480 / 1480 200 / 200 Balance 1357 / 1357 1470 / 1470 1350 / 1350 Weight 97.6 kg Intake: IV 2110 / 2110 2550 / 2550 1550 / 1550 Protonix Inj 80 MG In NS Inj 100 / 100 100 / 100 100 / 100 100 ML @ 10 mls/hr IV.CONT Q10H [facility] Rx#:[id number] Diprivan 1000 mg/100 ml Inj 1, 300 / 300 100 / 100 200 / 200 000 mg In 100 ml @ 5 MCG/KG/MIN 2.433 mls/hr IV.CONT TITRATE PRN Rx#:[id number] NS Inj 1,000 ML @ 125 mls/hr IV 1000 / 1000 2000 / 2000 1000 / 1000 .CONT .Q8H [facility] Rx#:[id number] Alburx 5% Inj 500 ML @ 250 mls/ 500 / 500 hr IV.SIG STAT STA Rx#:[id number] Calcium Gluconate Inj 1 GM In 110 / 110 NS Inj 100 ML @ 110 mls/hr IV. SIG ONCE ONE Rx#:[id number] NS Inj 250 ML @ 15 mls/hr IV. 100 / 100 100 / 100 SIG ONCE [facility] Rx#:[id number] fentaNYL 10 mcg/mL Premix Drip 250 / 250 250 / 250 2,500 mcg In 250 ml @ 50 MCG/HR 5 mls/hr IV.SIG TITRATE PRN Rx #:[id number] Intake (Blood Product) Amt 697 / 697 400 / 400 Plt Pheresis S Leukored Pas 297 / 297 Unit [id number] Rbc As-3 Leukoreduced Unit 400 / 400 [id number] Rbc As-3 Leukoreduced Unit 400 / 400 [id number] Output: Urine Amount (Catheter) 400 / 400 650 / 650 Indwelling Urethral Catheter 400 / 400 650 / 650 Gastric Drainage 300 / 300 300 / 300 200 / 200 Orogastric Tube 300 / 300 300 / 300 200 / 200 Wound Vac Amount 750 / 750 530 / 530 Midline Abdomen 750 / 750 530 / 530 Other: Mode Setting Midline Abdomen Continuous Continuous Continuous Date of Last Bowel Movement 05/22/18 05/22/18 # Bowel Movements 0 # Incontinent Bowel Movements 1 Narrative: Her abdomen is protuberant and soft. It does not appear any more distended than when I saw her last night. The VAC dressing is intact. There are 2 or 3 small areas where subcutaneous fatty tissue can be seen at the edge of the VAC sponge. The drainage from the VAC sponge looks like pink lemonade. Her urine output is excellent and clear. - Urinary Catheter Management Indwelling Urethral Catheter Cath placed during this visit: yes Reason for continuing: Hourly intake/output Insertion date: 05/20/18 Insertion time: 19:55 Results - Labs 05/22/18 04:20 05/22/18 04:20 Laboratory Results - last 24 hr 05/19/18 05/20/18 05/21/18 11:04 10:55 14:35 WBC RBC Hgb Hct MCV MCH MCHC RDW Plt Count MPV Sodium Potassium Chloride Carbon Dioxide Anion Gap BUN Creatinine Estimated GFR POC Glucose Random Glucose Calcium Calcium Adj for Albumin Phosphorus Magnesium Lactate Dehydrogenase Albumin Methylmalonic Acid 0.22 MTS Gel Crossmatch See Detail See Detail Bld Prod Order Comment 05/21/18 05/21/18 05/22/18 22:05 23:29 00:43 WBC RBC Hgb 8.6 L Hct 25.7 L MCV MCH MCHC RDW Plt Count MPV Sodium Potassium Chloride Carbon Dioxide Anion Gap BUN Creatinine Estimated GFR POC Glucose 146 H Random Glucose Calcium Calcium Adj for Albumin Phosphorus Magnesium Lactate Dehydrogenase Albumin Methylmalonic Acid MTS Gel Crossmatch See Detail Bld Prod Order Comment 05/22/18 05/22/18 05/22/18 04:20 04:20 11:30 WBC 6.8 D RBC 3.45 L Hgb 10.3 L Hct 29.8 L MCV 86.5 MCH 29.9 MCHC 34.5 RDW 15.5 Plt Count 51 L MPV 9.2 Sodium 144 Potassium 3.9 Chloride 115 H Carbon Dioxide 24.2 Anion Gap 5 BUN 26 H Creatinine 0.74 Estimated GFR 75 L POC Glucose 236 H Random Glucose 133 H Calcium 7.0 L* Calcium Adj for Albumin 8.6 Phosphorus 3.0 Magnesium 2.2 Lactate Dehydrogenase 154 Albumin 2.0 L D Methylmalonic Acid MTS Gel Crossmatch Bld Prod Order Comment - Imaging Imaging: ITS Impressions GI Bleed Scan Nuclear Medicine 05/19/18 00:00 CONCLUSION: 1. 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 Patient was emergently brought to the interventional radiology department from the nuclear medicine department for angiography and intervention. Mesenteric Arteriogram 05/19/18 14:37 CONCLUSION: 1. 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 2. 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 Chest X-Ray 05/20/18 00:00 CONCLUSION: 1. Interval intubation and placement of right internal jugular central venous line with no pneumothorax. 2. New hazy opacity at the right lung base of concern for infiltrate. This could represent pneumonia. 3. Interval placement of nasogastric tube and right-sided PICC line. PICC Line Insertion 05/20/18 00:00 CONCLUSION: 1. Uncomplicated central venous Power PICC line placement. 2. The PICC line can be used immediately. Abdomen/Pelvis CT 05/20/18 18:16 CONCLUSION: 1. Nonspecific, nonobstructive bowel gas pattern which may represent a mild ileus or be related to the recent endoscopy and insufflation of air. There is no focal wall thickening or inflammatory change. There is no free air or fluid. 2. Nonobstructing left renal calculi. 3. Small effusions and mild consolidative opacity in both lung bases. Assessment and Plan - Assessment (1) GI bleed Code(s): K92.2 - Gastrointestinal hemorrhage, unspecified Status: Acute Plan: 82 year old female POD2 exploratory laparotomy, resection of duodenum including duodenal diverticulum and proximal jejunum, placement of ABTheravac The patient remains hemodynamically stable. Her hemoglobin is stable. She is received no further blood or blood products. She has not required any pressor support. She is on minimal vent settings. At this time it appears that the tissue that was resected in her surgery 2 nights ago was the etiology of her problem. She is now a candidate to undergo reconstruction of her GI tract. I discussed in detail with the patient's daughters and her son-in-law and her bedside nurse. I contacted the operating room and we are working on getting a time available to do her surgery tomorrow morning. Risks are well-known to the patient's daughters. They understand she is on steroids which can slow wound healing. They understand the possibility of a patent anastomosis but the stomach that will not empty. They understand the advantages of placing a feeding tube. They are in agreement with the tentative plans to proceed to the operating room tomorrow morning. - Plan I personally evaluated the patient postoperatively in room 1309. Both of her daughters her son-in-law and her grandson were at the bedside as well as the patient's bedside RN. The patient has remained very stable overnight considering the urgency of the surgery and the recent events with her GI bleed. Is not shown any signs of further GI bleed since the surgery. Her orogastric tube only has bilious drainage. Her abdomen VAC dressing shows a small area of subcutaneous fatty tissue outside of the sponge at the 9 o'clock position. There is no evidence of intestine or intra- abdominal fatty tissue protruding around the sponge. Postop resection of duodenum, duodenal diverticulum and proximal jejunum for GI bleed. No evidence of further GI bleed since the surgery. Tentative plans to return to the OR either tomorrow evening or Friday morning for reconstitution of her GI continuity and placement of a distal feeding jejunostomy. Discussed in detail with those present at the bedside. All questions were answered. Everyone appears to understand the plans. The exam, history, and the medical decision-making described in the above note were completed with the assistance of the mid-level provider. I reviewed and agree with the findings presented. I attest that I had a [id number] encounter with the patient on the same day, and personally performed and documented my assessment and findings in the medical record.
[2018-05-22] MEDS: Artificial Tears Opth Oint 3.5 GM Tube EACH EYE SCH (20:17)
[2018-05-22 21:27] LABS: Baso % (Auto) 0.1 % (0.0-2.0); Hematocrit 28.9 % (35.0-46.0); Hemoglobin 10.3 gm/dL (11.6-15.3); Lymph # (Auto) 0.1 th/mm3 (1.0-4.8); Lymph % (Auto) 1.8 % (9.0-44.0); Mean Corpuscular HGB Conc 35.5 % (32.0-36.0); Mean Corpuscular Hemoglobin 30.1 pg (27.0-34.0); Mean Corpuscular Volume 84.8 fL (80.0-100.0); Mean Platelet Volume 8.9 fL (7.0-11.0); Mono # (Auto) 0.3 th/mm3 (0.0-0.9); Mono % (Auto) 3.6 % (0.0-8.0); Neut # (Auto) 6.8 th/mm3 (1.8-7.7); Neut % (Auto) 94.5 % (16.0-70.0); Platelet Count 62 th/mm3 (150-450); Red Blood Count 3.41 mil/mm3 (4.00-5.30); Red Cell Distribution Width 15.9 % (11.6-17.2); White Blood Count 7.2 th/mm3 (4.0-11.0)
[2018-05-22 21:54] LABS: Creatinine,Urine Random 24 mg/dL (27-300); Sodium,Urine Random 107 meq/L
[2018-05-22 22:10] LABS: Anion Gap 6 meq/L (5-15); Blood Urea Nitrogen 22 mg/dL (7-18); Calcium 6.9 mg/dL (8.5-10.1); Carbon Dioxide 25.4 meq/L (21.0-32.0); Chloride 116 meq/L (98-107); Glomerular Filtration Rate Greater Than 89 mL/min (>89); Glucose,Random 116 mg/dL (74-106); Magnesium 2.3 mg/dL (1.5-2.5); Phosphorus 2.6 mg/dL (2.5-4.9); Potassium 3.4 meq/L (3.5-5.1); Sodium 147 meq/L (136-145)
[2018-05-22 22:18] LABS: Creatine Kinase 23 U/L (26-192)
[2018-05-22 22:24] LABS: Calcium-Albumin Corrected 8.5 mg/dL (8.5-10.1)
[2018-05-22] MEDS ORDERED: Potassium Phosphate Inj 30 MMOL in Sodium Chlor 0.9% Inj 250 ML IV.SIG PRN (22:43)
[2018-05-22] MEDS ORDERED: Potassium Phosphate 500 MG Soluble Tablet PO PRN ×2 (22:43)
[2018-05-22] MEDS ORDERED: Sodium Phosphate Inj 30 MMOL in Sodium Chlor 0.9% Inj 250 ML IV.SIG PRN (22:43)
[2018-05-22] MEDS ORDERED: Magnesium Sulfate Inj 4 GM in Sodium Chlor 0.9% Inj 92 ML IV.SIG PRN (22:43)
[2018-05-22] MEDS ORDERED: Magnesium Sulfate Inj 2 GM in Sodium Chlor 0.9% Inj 96 ML IV.SIG PRN (22:43)
[2018-05-22] MEDS ORDERED: Magnesium Oxide 400 MG Tablet PO PRN (22:43)
[2018-05-22] MEDS: Potassium Chlor 40 mEq Premix 40 MEQ/100 ML PIGGYBACK IV.SIG PRN (23:06)
[2018-05-23] MEDS: Midazolam 100 MG/100 ML Inj 100 MG/100 ML BAG IV.CONT PRN ×2 (00:22→17:58)
[2018-05-23] MEDS: fentaNYL 10 mcg/mL Premix Drip 2,500 MCG/250 ML BAG IV.SIG PRN ×2 (01:07→13:11)
[2018-05-23 04:08] LABS: Baso % (Auto) 0.2 % (0.0-2.0); Hematocrit 28.1 % (35.0-46.0); Hemoglobin 9.8 gm/dL (11.6-15.3); Lymph # (Auto) 0.2 th/mm3 (1.0-4.8); Lymph % (Auto) 3.4 % (9.0-44.0); Mean Corpuscular HGB Conc 34.9 % (32.0-36.0); Mean Corpuscular Hemoglobin 29.9 pg (27.0-34.0); Mean Corpuscular Volume 85.6 fL (80.0-100.0); Mean Platelet Volume 8.6 fL (7.0-11.0); Mono # (Auto) 0.4 th/mm3 (0.0-0.9); Neut # (Auto) 6.4 th/mm3 (1.8-7.7); Neut % (Auto) 91.4 % (16.0-70.0); Platelet Count 61 th/mm3 (150-450); Red Blood Count 3.28 mil/mm3 (4.00-5.30)
[2018-05-23 04:47] LABS: Thyroid Stimulating Hormone 0.81 uIU/mL (0.358-3.740); Troponin I 0.06 ng/mL (0.02-0.05)
[2018-05-23 04:51] LABS: Lymphocytes 3 % (9-44); Monocytes 6 % (0-8); Tallied Nucleated RBC 1 (0-0)
[2018-05-23 04:52] LABS: Ovalocytes 1+; Platelet Morphology Normal (Normal)
[2018-05-23 05:23] LABS: Anion Gap 5 meq/L (5-15); Blood Urea Nitrogen 21 mg/dL (7-18); Calcium 7.1 mg/dL (8.5-10.1); Carbon Dioxide 24.7 meq/L (21.0-32.0); Chloride 116 meq/L (98-107); Glomerular Filtration Rate Greater Than 89 mL/min (>89); Glucose,Random 102 mg/dL (74-106); Magnesium 2.4 mg/dL (1.5-2.5); Phosphorus 2.4 mg/dL (2.5-4.9); Potassium 3.8 meq/L (3.5-5.1); Sodium 146 meq/L (136-145)
[2018-05-23 05:35] LABS: Albumin 1.8 g/dL (3.4-5.0); Calcium-Albumin Corrected 8.9 mg/dL (8.5-10.1)
[2018-05-23] MEDS ORDERED: Calcium Chloride Inj 1 GM/10 ML Syringe ONE (07:48)
[2018-05-23] MEDS ORDERED: Albumin Human 25% Inj 50 ML IV.SIG ONE (07:48)
[2018-05-23] MEDS ORDERED: hydrALAZINE HCl Inj 20 MG/ML Vial IV.PUSH ONE (08:00)
[2018-05-23] MEDS: Pantoprazole Inj 80 MG in Sodium Chlor 0.9% Inj 100 ML IV.CONT SCH ×2 (08:04→16:53)
[2018-05-23] MEDS: Senna/Docusate Sodium 8.6/50 MG Tablet PO SCH ×2 (08:04→21:11)
[2018-05-23] MEDS: Sod Chloride 0.9% Inj 1,000 ML IV.CONT SCH ×2 (08:05→15:43)
[2018-05-23] MEDS: Heparin Central Flush 100 UNIT/ML 5 ML Vial IV.FLUSH SCH (08:05)
[2018-05-23] MEDS ORDERED: ceFAZolin 1 GM Premix Inj 2 GM/100 ML PIGGYBACK IV.SIG ONE (08:13)
--- NOTE | 2018-05-23 10:08 | P.OP ---
- Preoperative Diagnosis (1) GI bleed - Postoperative Diagnosis (1) GI bleed Date of procedure: 05/23/18 Procedure: Exploration of abdomen, gastrojejunostomy, feeding jejunostomy, closure of abdomen with placement of IRIS dressing Implants: 14 Spanish red Rodriguez catheter for feeding jejunostomy, 10 mm flat fluted drain Anesthesia: PIPER Surgeon: Jarad James MD Crozer: Ángel Estimated blood loss (mL): 50 Urine output (mL): 100 Pathology: none sent Operation and Findings: The patient was identified as Mera Perea, taken to the operating room, and placed in a supine position. She arrived from [facility] endotracheally intubated with an orogastric tube in place. Patient had an AB Thera VAC in place as well. Following additional sedation by anesthesia the Therevac was removed and the patient's abdomen was prepped and draped in the usual sterile fashion with Betadine. A timeout procedure was performed. Following completion of the timeout procedure everyone's satisfaction within the room exploration of the abdomen was performed. Attention was turned first to identification of the imbricated staple line at the distal junction of the third portion of the duodenum where the prior resection had been performed. There appeared to be good healthy healing going on and no evidence of perforation. Attention was then turned to identification of the distal staple line on the proximal jejunum and this was easily identified and appeared to have good perfusion. There were no intra-abdominal adhesions. The stomach appeared healthy and the orogastric tube was palpated within the stomach withdrawn into the proximal stomach. A window was made in the transverse colon mesentery using the harmonic scalpel and electrocautery. The jejunum was brought through the window and sutured without tension to the transverse colon mesentery. A functional end-to-end [id number] anastomosis between the posterior greater curvature of the stomach and the jejunum was performed using a linear cutting stapling device 75 load. The opening between the stomach and jejunum was closed with multiple interrupted 3-0 silk sutures with the distal staple line imbricated with additional 3-0 silk sutures. A silk suture was placed to reinforce the proximal staple line as well. The anastomosis was patent. The orogastric tube was removed and a nasogastric tube was advanced by the nurse corporate safety coordinator into the stomach I will directly palpating the tube and appropriately positioning it so it would not impact the fresh anastomosis. Attention was then turned to placement of a feeding jejunostomy. Proximally 40 cm distal to the gastrojejunostomy anastomosis site was selected in a pursestring 3-0 silk sutures placed in the antimesenteric border of the small bowel. Site for exit of the feeding jejunostomy was selected and the right lateral abdomen a small stab incision was made in the outside portion of the red Rodriguez catheter was tunneled from the peritoneum to outside the patient's abdomen. The end of the red Rodriguez catheter was removed and 2 additional sideholes were created with a scissor. An opening in the antimesenteric border of the small bowel at the center of the pursestring suture was created with electrocautery and the red Rodriguez catheter was fed distally into the jejunum. The purse string suture was tied down in a serosal tunnel was created using multiple interrupted 3-0 silk sutures. The small bowel was then sutured to the peritoneum where the catheter exited the peritoneum with 2 silk sutures. Small bowel was returned to the abdominal cavity. Transverse colon with a generous omentum was then draped over the midline after a 10 mm flat fluted drain was placed with its tip adjacent to the staple line at the third portion of the duodenum. Both the feeding tube and the drain were held in position at the level of the skin with 3-0 nylon drain sutures. Attention was then turned to closure of the fascia. Using single arm #1 PDS sutures from the bottom and the top and 4 interrupted internal retention sutures of #2 Vicryl the midline was approximated. Subcutaneous layer was irrigated copiously with saline. Generous subcutaneous layer of fat was approximated with multiple interrupted 2-0 Vicryl sutures. The skin was closed with surgical mel. The iris dressing was then applied in standard fashion connected to suction and there is no evidence of leak. Dry sterile dressings were placed around the feeding jejunostomy and the drain. An abdominal binder was placed. The patient tolerated the procedure without apparent complication. Sponge needle and instrument counts were correct at the end of the case. Patient was transported back to [facility] in stable condition. Findings at surgery and the surgery performed were discussed in detail with the patient's daughters and son- in-law as well as her bedside nurses.
[2018-05-23] MEDS ORDERED: fentaNYL Citrate Inj 100 MCG/2 ML Ampul ONE (10:09)
[2018-05-23] MEDS: Lidocaine 5% Patch T-DERMAL SCH (10:23)
[2018-05-23] MEDS: MethylPREDNISolone Sod Succinate Inj 40 MG/ML Vial IV.PUSH SCH (10:24)
[2018-05-23] MEDS: Artificial Tears Opth Oint 3.5 GM Tube EACH EYE SCH ×2 (10:24→21:10)
[2018-05-23] MEDS: hydrALAZINE HCl Inj 20 MG/ML Vial IV.PUSH PRN (10:39)
[2018-05-23] MEDS ORDERED: fentaNYL Citrate Inj 100 MCG/2 ML Ampul IV.PUSH PRN (10:59)
[2018-05-23] MEDS ORDERED: Midazolam Inj 5 MG/ML 1 ML Vial IV.PUSH ONE (11:01)
[2018-05-23] MEDS: Propofol 1000 mg/100 ml Inj 1,000 MG/100 ML BOTTLE IV.CONT PRN ×2 (11:08→17:59)
--- NOTE | 2018-05-23 11:19 | P.PNCC ---
Subjective Subjective Remarks/Hospital Course: Hospital Course: 82yF with history of amyloidosis who presented with GI bleeding, hypotension, and severe anemia. originally admitted to the floor. hgb continued to downtrend despite transfusions. today taken for EGD which found blood in the stomach and clot, but no active bleeding. despite this, hgb still did not improve. taken for bleeding scan which was very +. discussed case with Dr. Garcia/Dr. Garland in IR. review of admission CT abd/pelvis demonstrates possible bleeding at duodenal bulb concerning for ulceration. Taken emergently to IR for embolization which appears to be successful. I evaluated the patient upon arrival to the ICU post-IR procedure. she is stable. complaining of hip pain. hgb has improved appropriately. she denies other complaints. she asked me not to look at her groin sites because "my hips hurt and I am tired." Recent evaluation by bedside RN is without hematoma, and this evaluation is deferred at patient's request (bedside RN to continue to monitor for signs of hematoma). remainder of ROS negative. Subjective: 05/20: doing well. complaining of moderate abdominal pain 5/10. receiving iv dilaudid currently. plan for EGD today. hgb dropped from 7.8 to 7.4, but slightly more tachycardic today, and I am worried about ongoing bleeding, although it does appear to be much slower clinically than yesterday. I discussed with GI WASH HELPER that per my conversation with IR, the lesion may be in the 4th portion of the duodenum near the ligament and it may require further investigation that usual EGD, and possibly push enteroscopy. She stated she would convey to the proceduralist. Dr. Shin suggests type II NSTEMI secondary to anemia and I agree completely with his assessment. Given that she is going soon for repeat EGD with anesthesia, will give 1 additional unit of prbc as she clearly has demonstrated she needs higher hematocrit for oxygen carrying capacity to her known ischemic CAD lesions. 05/21: s/p exploratory laparotomy last night. open abdomen. hgb stable. became acutely hypotensive with increased wound vac output one time today- emergently gave 1 unit prbc and 1 unit plt empirically given sudden change in condition. significant 3rd space losses requiring additional resuscitative efforts. remains deeply sedated. off vasopressors. remains intubated. 05/22: more hemodynamically stable today. hgb stable. still high wound-vac output with 300-500mL/12h. uop remains adequate at 70-80mL/hr, but Cr slightly elevated over baseline. unable to start diuresis yet and clinically although developing anasarca in the tissues, appears intravascularly euvolemic but not overloaded. likely will not tolerate diuresis efforts without significant kidney injury at this present juncture. needs bringback and washout in OR, but will leave timing of this to general surgery. 05/23: Received from operating room in good condition. Abdominal wound closed following gastrojejunostomy. Joseph-Vieira drain in region of the duodenal stump, gastric anastomosis. Nasogastric tube to not be moved, good position in stomach, keep to low intermittent suction. Downstream jejunostomy tube for initiation of trickle feeds. Renal function this morning excellent, follow closely. Chemical ventilation for the next couple of days as we observe tension on the abdominal wall. Meticulously avoid fluid overload. At present she is hypertensive and tachycardic for which we will restart propofol and use boluses of fentanyl as needed. Baseline fentanyl drip is infusing. Objective Vital Signs / I&O: Vital Signs 05/22/18 12:00 05/22/18 12:19 05/22/18 13:00 Temperature 97.9 F 97.7 F Pulse Rate 84 75 Respiratory Rate 14 14 14 Pulse Oximetry 100 98 97 05/22/18 14:00 05/22/18 15:00 05/22/18 16:00 Temperature 97.9 F 97.7 F 97.2 F L Pulse Rate 78 77 69 Respiratory Rate 14 14 14 Pulse Oximetry 100 99 97 05/22/18 16:44 05/22/18 17:00 05/22/18 18:00 Temperature 97.0 F L 97.0 F L Pulse Rate 66 70 70 Respiratory Rate 14 14 14 Pulse Oximetry 97 96 96 05/22/18 19:00 05/22/18 20:00 05/22/18 20:23 Temperature 97.0 F L 97.2 F L Pulse Rate 67 66 70 Respiratory Rate 14 14 14 Pulse Oximetry 97 99 96 05/22/18 21:00 05/22/18 22:00 05/22/18 23:00 Temperature 97.0 F L 97.2 F L Pulse Rate 67 73 62 Respiratory Rate 14 14 14 Pulse Oximetry 99 98 98 05/22/18 23:47 05/23/18 00:00 05/23/18 01:00 Temperature 97.8 F Pulse Rate 44 L 85 Respiratory Rate 15 14 15 Pulse Oximetry 97 97 98 05/23/18 02:00 05/23/18 03:00 05/23/18 03:37 Temperature Pulse Rate 68 44 L Respiratory Rate 14 14 15 Pulse Oximetry 99 97 99 05/23/18 04:00 05/23/18 05:00 05/23/18 06:00 Temperature 97.7 F Pulse Rate 45 L 59 L 43 L Respiratory Rate 14 14 14 Pulse Oximetry 98 98 98 05/23/18 07:00 05/23/18 08:00 05/23/18 08:04 Temperature 96.8 F L Pulse Rate 40 L 47 L Respiratory Rate 14 Pulse Oximetry 99 100 05/23/18 09:49 05/23/18 10:00 Temperature 98.9 F Pulse Rate 86 87 Respiratory Rate 14 Pulse Oximetry 96 91 L Intake & Output 05/22/18 05/23/18 05/23/18 18:59 06:59 18:59 Intake Total 1650 / 1650 1550 / 1550 700 / 700 Output Total 5 / 5 1825 / 1825 300 / 300 Balance -375 / -375 -275 / -275 400 / 400 Weight 97.4 kg Intake: IV 1650 / 1650 1550 / 1550 100 / 100 Protonix Inj 80 MG In NS Inj 100 / 100 100 / 100 100 ML @ 10 mls/hr IV.CONT Q10H [facility] Rx#:[id number] Diprivan 1000 mg/100 ml Inj 1, 300 / 300 100 / 100 000 mg In 100 ml @ 5 MCG/KG/MIN 2.433 mls/hr IV.CONT TITRATE PRN Rx#:[id number] NS Inj 1,000 ML @ 125 mls/hr IV 1000 / 1000 1000 / 1000 .CONT .Q8H [facility] Rx#:[id number] KCl 40 mEq Premix Inj 40 meq In 100 / 100 100 ml @ 25 mls/hr IV.SIG UNSCH PRN Rx#:[id number] Ancef 1 GM Premix Inj 2 gm In 100 / 100 100 ml @ 0 mls/hr IV.SIG .STK- MED [facility] Rx#:[id number] fentaNYL 10 mcg/mL Premix Drip 250 / 250 250 / 250 2,500 mcg In 250 ml @ 50 MCG/HR 5 mls/hr IV.SIG TITRATE PRN Rx #:[id number] Anesthesia Amount 600 / 600 Output: Estimated Blood Loss 50 / 50 Urine Amount (Catheter) 1150 / 1150 1350 / 1350 100 / 100 Indwelling Urethral Catheter 1150 / 1150 1350 / 1350 100 / 100 Gastric Drainage 500 / 500 150 / 150 100 / 100 Jejunostomy Tube 0 / 0 Orogastric Tube 500 / 500 150 / 150 100 / 100 Wound Drainage 50 / 50 # 2 Left Abdomen 50 / 50 Wound Vac Amount 375 / 375 325 / 325 Midline Abdomen 375 / 375 325 / 325 Other: Mode Setting Midline Abdomen Continuous Continuous Continuous # Voids 2 Date of Last Bowel Movement 05/22/18 05/22/18 05/23/18 # Bowel Movements 4 # Incontinent Bowel Movements 1 Result Diagrams: 05/23/18 04:00 05/23/18 04:00 Objective Remarks: GENERAL: Postoperative patient, mechanically ventilated, tachycardic and mildly hypertensive. Just back from the OR. HEENT: Normocephalic. Atraumatic. Pupils equal, round, reactive, conjugate. Orotracheal intubation. CHEST: Clear breath sounds bilaterally, equal chest rise. No adventitious sounds. CARDIOVASCULAR: Regular normal rate, regular rhythm. No JVD. ABDOMEN: Fascia closed, postsurgical wound. Soft, nondistended. Quiet. MUSCULOSKELETAL: Foot pulses 2+. Trace foot and ankle edema. Warm and well- perfused. NEUROLOGICAL: RASS -2, withdraws 4 limbs, breathing spontaneously over the ventilator. Assessment and Plan - Assessment and Plan Plan: Assessment: 82yF with amyloidosis and active GI bleed. s/p emergent IA embolization 05/19. s/p EGD 05/19 and again 05/20 with ischemia present. s/p emergent exploratory laparotomy with duodenal and jejunal resection, initially left in discontinuity with open abdomen, and now reconstructed with abdominal wall closure. Remains critically ill. Plan to keep mechanically ventilated for at least 2 days while the edema resolves and abdominal wall tension lessons. Active upper GI bleed Acute hypoxic and hypercarbic respiratory failure Open abdomen severe acute anemia secondary to blood loss requiring transfusion- persistent duodenal ulcer Type II NSTEMI secondary to demand ischemia from severe anemia s/p exploratory laparotomy with duodenal, jejunal resection, left in discontinuity with open abdomen 05/20 s/p EGD 05/19 s/p EGD 05/20 s/p emergent IR embolization 05/19 severe acute thrombocytopenia acute protein calorie malnutrition- moderate to severe acute intravascular hypovolemia Plan: - [facility] ventilator mode - propofol, fentanyl for goal RASS -2 - 3 - no weaning of mechanical ventilation for 48 hours - serially check cbc - transfuse to keep hgb > 7 - transfuse to keep plt > 50k -Nasogastric tube to low intermittent suction, if displaced do not move. If removed leave out. -Daily am cbc, bmp, mg, phos - ICU electrolyte replacement protocol - strict NPO -SCDs - continue NS @ 100cc/hr, taper as edema fluid mobilizes. -Trickle feeds ordered through jejunostomy. Discussed at bedside with Dr. Jeferson Krause. Critical care time: 38 minutes, actively managed mechanical ventilation, hypertension, tachycardia, fluid balance.
--- NOTE | 2018-05-23 13:53 | P.PNONC ---
Subjective Interval history: Afebrile Patient remains intubated and sedated No obvious bleeding Objective Vital Signs/Intake & Output: Vital Signs 05/22/18 14:00 05/22/18 15:00 05/22/18 16:00 Temperature 97.9 F 97.7 F 97.2 F L Pulse Rate 78 77 69 Respiratory Rate 14 14 14 Pulse Oximetry 100 99 97 05/22/18 16:44 05/22/18 17:00 05/22/18 18:00 Temperature 97.0 F L 97.0 F L Pulse Rate 66 70 70 Respiratory Rate 14 14 14 Pulse Oximetry 97 96 96 05/22/18 19:00 05/22/18 20:00 05/22/18 20:23 Temperature 97.0 F L 97.2 F L Pulse Rate 67 66 70 Respiratory Rate 14 14 14 Pulse Oximetry 97 99 96 05/22/18 21:00 05/22/18 22:00 05/22/18 23:00 Temperature 97.0 F L 97.2 F L Pulse Rate 67 73 62 Respiratory Rate 14 14 14 Pulse Oximetry 99 98 98 05/22/18 23:47 05/23/18 00:00 05/23/18 01:00 Temperature 97.8 F Pulse Rate 44 L 85 Respiratory Rate 15 14 15 Pulse Oximetry 97 97 98 05/23/18 02:00 05/23/18 03:00 05/23/18 03:37 Temperature Pulse Rate 68 44 L Respiratory Rate 14 14 15 Pulse Oximetry 99 97 99 05/23/18 04:00 05/23/18 05:00 05/23/18 06:00 Temperature 97.7 F Pulse Rate 45 L 59 L 43 L Respiratory Rate 14 14 14 Pulse Oximetry 98 98 98 05/23/18 07:00 05/23/18 08:00 05/23/18 08:04 Temperature 96.8 F L Pulse Rate 40 L 47 L Respiratory Rate 14 Pulse Oximetry 99 100 05/23/18 09:49 05/23/18 10:00 05/23/18 11:00 Temperature 98.9 F Pulse Rate 86 87 130 H Respiratory Rate 14 14 Pulse Oximetry 96 91 L 95 05/23/18 11:14 05/23/18 12:00 05/23/18 13:00 Temperature 98.6 F Pulse Rate 114 H 125 H 111 H Respiratory Rate 14 14 14 Pulse Oximetry 95 96 97 Intake & Output 05/22/18 05/23/18 05/23/18 18:59 06:59 18:59 Intake Total 1650 / 1650 1550 / 1550 2310 / 2310 Output Total 2024 1825 / 1825 300 / 300 Balance -375 / -375 -275 / -275 2009 Weight 214 lb 11.684 oz Intake: IV 1650 / 1650 1550 / 1550 1710 / 1710 Protonix Inj 80 MG In NS Inj 100 / 100 100 / 100 100 / 100 100 ML @ 10 mls/hr IV.CONT Q10H AKIN Rx#:[id number] Diprivan 1000 mg/100 ml Inj 1, 300 / 300 100 / 100 000 mg In 100 ml @ 5 MCG/KG/MIN 2.433 mls/hr IV.CONT TITRATE PRN Rx#:[id number] NS Inj 1,000 ML @ 125 mls/hr IV 1000 / 1000 1000 / 1000 1000 / 1000 .CONT .Q8H AIKN Rx#:[id number] KCl 40 mEq Premix Inj 40 meq In 100 / 100 100 ml @ 25 mls/hr IV.SIG UNSCH PRN Rx#:[id number] Potassium Phosphate Inj 30 MMOL 260 / 260 In NS Inj 250 ML @ 42 mls/hr IV.SIG UNSCH PRN Rx#:[id number] Ancef 1 GM Premix Inj 2 gm In 100 / 100 100 ml @ 0 mls/hr IV.SIG .STK- MED ONE Rx#:[id number] fentaNYL 10 mcg/mL Premix Drip 250 / 250 250 / 250 250 / 250 2,500 mcg In 250 ml @ 50 MCG/HR 5 mls/hr IV.SIG TITRATE PRN Rx #:[id number] Anesthesia Amount 600 / 600 Output: Estimated Blood Loss 50 / 50 Urine Amount (Catheter) 1150 / 1150 1350 / 1350 100 / 100 Indwelling Urethral Catheter 1150 / 1150 1350 / 1350 100 / 100 Gastric Drainage 500 / 500 150 / 150 100 / 100 Jejunostomy Tube 0 / 0 Orogastric Tube 500 / 500 150 / 150 100 / 100 Wound Drainage 50 / 50 # 2 Left Abdomen 50 / 50 Wound Vac Amount 375 / 375 325 / 325 Midline Abdomen 375 / 375 325 / 325 Other: Mode Setting Midline Abdomen Continuous Continuous Continuous # Voids 2 Date of Last Bowel Movement 11/30/18 11/30/18 12/01/18 # Bowel Movements 4 # Incontinent Bowel Movements 1 Result Diagrams: 05/23/18 04:00 05/23/18 04:00 Laboratory Results: Laboratory Results - last 24 hr 05/20/18 05/20/18 05/20/18 10:55 10:55 10:55 WBC RBC Hgb Hct MCV MCH MCHC RDW Plt Count MPV Prelim Diff (Auto) Neut % (Auto) Lymph % (Auto) [place] % (Auto) Eos % (Auto) Baso % (Auto) Neut # (Auto) Lymph # (Auto) [place] # (Auto) Eos # (Auto) Baso # (Auto) WBC Differential Diff Scan Seg Neuts % (Manual) Band Neuts % (Manual) Lymphocytes % (Manual) Monocytes % (Manual) Abs Neuts (Manual) Nucleated RBCs/100 WBC Differential Comment Platelet Estimate Platelet Morphology Ovalocytes Fibrinogen Sodium Potassium Chloride Carbon Dioxide Anion Gap BUN Creatinine Estimated GFR Random Glucose Osmolality Calcium Calcium Adj for Albumin Phosphorus Magnesium Total Creatine Kinase Troponin I Albumin TSH Ur Specific [place] Urine Eosinophils Urine Osmolality Ur Random Creatinine Ur Random Sodium Blood Type Antibody Screen MTS Gel Crossmatch See Detail See Detail See Detail 05/21/18 05/22/18 05/22/18 23:29 20:55 20:55 WBC 7.2 RBC 3.41 L Hgb 10.3 L Hct 28.9 L MCV 84.8 MCH 30.1 MCHC 35.5 RDW 15.9 Plt Count 62 L MPV 8.9 Prelim Diff (Auto) Slide review pending Neut % (Auto) 94.5 H Lymph % (Auto) 1.8 L [place] % (Auto) 3.6 Eos % (Auto) 0.0 Baso % (Auto) 0.1 Neut # (Auto) 6.8 Lymph # (Auto) 0.1 L [place] # (Auto) 0.3 Eos # (Auto) 0.0 Baso # (Auto) 0.0 WBC Differential . Diff Scan Auto diff confirmed Seg Neuts % (Manual) Band Neuts % (Manual) Lymphocytes % (Manual) Monocytes % (Manual) Abs Neuts (Manual) Nucleated RBCs/100 WBC Differential Comment . Platelet Estimate Platelet Morphology Ovalocytes Fibrinogen Sodium 147 H Potassium 3.4 L Chloride 116 H Carbon Dioxide 25.4 Anion Gap 6 BUN 22 H Creatinine 0.56 Estimated GFR Greater than 89 Random Glucose 116 H Osmolality 305 H Calcium 6.9 L* Calcium Adj for Albumin 8.5 Phosphorus 2.6 Magnesium 2.3 Total Creatine Kinase 23 L Troponin I Albumin 2.0 L TSH Ur Specific [place] Urine Eosinophils Urine Osmolality Ur Random Creatinine Ur Random Sodium Blood Type Antibody Screen MTS Gel Crossmatch See Detail 05/22/18 05/22/18 05/22/18 21:10 21:10 21:10 WBC RBC Hgb Hct MCV MCH MCHC RDW Plt Count MPV Prelim Diff (Auto) Neut % (Auto) Lymph % (Auto) [place] % (Auto) Eos % (Auto) Baso % (Auto) Neut # (Auto) Lymph # (Auto) [place] # (Auto) Eos # (Auto) Baso # (Auto) WBC Differential Diff Scan Seg Neuts % (Manual) Band Neuts % (Manual) Lymphocytes % (Manual) Monocytes % (Manual) Abs Neuts (Manual) Nucleated RBCs/100 WBC Differential Comment Platelet Estimate Platelet Morphology Ovalocytes Fibrinogen Sodium Potassium Chloride Carbon Dioxide Anion Gap BUN Creatinine Estimated GFR Random Glucose Osmolality Calcium Calcium Adj for Albumin Phosphorus Magnesium Total Creatine Kinase Troponin I Albumin TSH Ur Specific [place] Urine Eosinophils None seen Urine Osmolality 500 Ur Random Creatinine 24 L Ur Random Sodium 107 Blood Type Antibody Screen MTS Gel Crossmatch 05/22/18 05/23/18 05/23/18 21:10 04:00 04:00 WBC 7.0 RBC 3.28 L Hgb 9.8 L Hct 28.1 L MCV 85.6 MCH 29.9 MCHC 34.9 RDW 16.0 Plt Count 61 L MPV 8.6 Prelim Diff (Auto) Slide review pending Neut % (Auto) 91.4 H Lymph % (Auto) 3.4 L [place] % (Auto) 5.0 Eos % (Auto) 0.0 Baso % (Auto) 0.2 Neut # (Auto) 6.4 Lymph # (Auto) 0.2 L [place] # (Auto) 0.4 Eos # (Auto) 0.0 Baso # (Auto) 0.0 WBC Differential Manual diff final Diff Scan Seg Neuts % (Manual) 80 H Band Neuts % (Manual) 11 H Lymphocytes % (Manual) 3 L Monocytes % (Manual) 6 Abs Neuts (Manual) 6.4 Nucleated RBCs/100 WBC 1 H Differential Comment . Platelet Estimate Low L Platelet Morphology Normal Ovalocytes 1+ H Fibrinogen 263 Sodium Potassium Chloride Carbon Dioxide Anion Gap BUN Creatinine Estimated GFR Random Glucose Osmolality Calcium Calcium Adj for Albumin Phosphorus Magnesium Total Creatine Kinase Troponin I Albumin TSH Ur Specific [place] 1.012 Urine Eosinophils Urine Osmolality Ur Random Creatinine Ur Random Sodium Blood Type Antibody Screen MTS Gel Crossmatch 05/23/18 05/23/18 05/23/18 04:00 04:00 04:00 WBC RBC Hgb Hct MCV MCH MCHC RDW Plt Count MPV Prelim Diff (Auto) Neut % (Auto) Lymph % (Auto) [place] % (Auto) Eos % (Auto) Baso % (Auto) Neut # (Auto) Lymph # (Auto) [place] # (Auto) Eos # (Auto) Baso # (Auto) WBC Differential Diff Scan Seg Neuts % (Manual) Band Neuts % (Manual) Lymphocytes % (Manual) Monocytes % (Manual) Abs Neuts (Manual) Nucleated RBCs/100 WBC Differential Comment Platelet Estimate Platelet Morphology Ovalocytes Fibrinogen Sodium 146 H Potassium 3.8 Chloride 116 H Carbon Dioxide 24.7 Anion Gap 5 BUN 21 H Creatinine 0.51 Estimated GFR Greater than 89 Random Glucose 102 Osmolality Calcium 7.1 L* Calcium Adj for Albumin 8.9 Phosphorus 2.4 L Magnesium 2.4 Total Creatine Kinase Troponin I 0.06 H Albumin 1.8 L TSH 0.810 Ur Specific [place] Urine Eosinophils Urine Osmolality Ur Random Creatinine Ur Random Sodium Blood Type O Positive Antibody Screen Negative MTS Gel Crossmatch Medications: Active Medications Generic Name Dose Route Start Last Admin Trade Name Freq PRN Reason Stop Dose Admin Hydrocodone Bitart/Acetaminophen 1 tab 05/19/18 10:01 05/19/18 13:15 [place] 5/325 PO 1 tab Q6H PRN Administration Pain 2-5 Hydrocodone Bitart/Acetaminophen 1 tab 05/19/18 10:01 05/19/18 20:10 [place] 10/325 PO 1 tab Q6H PRN Administration Pain 6-10 Albuterol 1 ampul 05/23/18 04:00 05/23/18 11:13 Duoneb Neb (Akin) NEB 1 ampul Q4HR NEB AKIN Administration Artificial Tears 1 applicatio 05/22/18 21:00 05/23/18 10:24 Lacrilube Opth Oint EACH EYE 1 applicatio BID AKIN Administration Fentanyl Citrate 100 mcg 05/23/18 10:59 05/23/18 11:12 Fentanyl Inj IV.PUSH 100 mcg Q1H PRN Administration Any pain Heparin Sodium (Porcine) 0 unit 05/21/18 09:00 05/23/18 08:05 Heparin Central Flush IV.FLUSH Not Given DAILY AKIN Hydralazine HCl 10 mg 05/23/18 00:24 05/23/18 10:39 Apresoline Inj IV.PUSH 10 mg Q1H PRN Administration Sbp>165, Dbp>90 Hydromorphone HCl 2 mg 05/19/18 21:41 05/20/18 16:00 Dilaudid Pf Inj IV.PUSH 2 mg Q4H PRN Administration PAIN SCALE 6 -10 Sodium Chloride 1,000 mls @ 125 mls/hr 05/17/18 06:15 05/23/18 08:05 Ns Inj IV.CONT Not Given .Q8H AKIN Pantoprazole Sodium 80 mg/ 100 mls @ 10 mls/hr 05/17/18 09:00 05/23/18 08:04 Sodium Chloride IV.CONT Not Given Q10H AKIN Sodium Chloride 500 mls @ 30 mls/hr 05/18/18 07:00 05/18/18 07:00 Ns Inj IV.SIG Not Given .Q10H AKIN Midazolam HCl 100 mg in 100 mls @ 1 mls/hr 05/20/18 19:25 05/23/18 04:00 Versed Inj IV.CONT 4 mg/hr TITRATE PRN 4 mls/hr See protocol Titration Protocol 1 MG/HR Fentanyl 2,500 mcg in 250 mls @ 5 mls/hr 05/20/18 20:00 05/23/18 13:11 Fentanyl 10 Mcg/Ml Premix Drip IV.SIG 200 mcg/hr TITRATE PRN 20 mls/hr Per Protocol Administration Protocol 50 MCG/HR Potassium Chloride 40 meq in 100 mls @ 25 mls/hr 05/22/18 22:43 05/23/18 03: 06 Kcl 40 Meq Premix Inj IV.SIG Infused UNSCH PRN Infusion For Potassium 3.3 - 3.5 mEq/L Potassium Phosphate 30 mmol/ 260 mls @ 42 mls/hr 05/22/18 22:43 05/23/18 12: 57 Sodium Chloride IV.SIG Infused UNSCH PRN Infusion SEE LABEL COMMENTS Propofol 1,000 mg in 100 mls @ 2.922 mls/hr 05/23/18 11:00 05/23/18 11:08 Diprivan 1000 Mg/100 Ml Inj IV.CONT 5 mcg/kg/min TITRATE PRN 2.92 mls/hr Per Protocol Administration Protocol 5 MCG/KG/MIN Lidocaine HCl 2 patch 05/19/18 09:30 05/23/18 10:23 Lidoderm 5% Patch.12 Hr T-DERMAL 2 patch DAILY AKIN Administration Methylprednisolone Sodium Succinate 60 mg 05/23/18 09:00 05/23/18 10:24 Solumedrol Inj IV.PUSH 60 mg DAILY AKIN Administration Ondansetron HCl 4 mg 05/17/18 06:10 05/19/18 13:17 Zofran Inj IV.PUSH 4 mg Q6H PRN Administration NAUSEA OR VOMITING Patch Removal 1 each 05/19/18 21:00 05/23/18 10:24 Remove Old Patch T-DERMAL Not Given BID AKIN Prochlorperazine Edisylate 10 mg 05/17/18 09:06 05/19/18 00:08 Compazine Inj IV.PUSH 10 mg Q6H PRN Administration NAUSEA Senna/Docusate Sodium 1 tab 05/17/18 09:00 05/23/18 08:04 Jessie-Colace PO Not Given BID AKIN Sodium Chloride 0 ml 05/21/18 09:00 05/23/18 10:23 Ns Flush IV.FLUSH 10 ml DAILY AKIN Administration Objective Remarks: GENERAL: Elderly female patient resting in bed intubated and sedated SKIN: Warm and dry. HEAD: Normocephalic. NECK: Supple, trachea midline. CARDIOVASCULAR: Tachycardic. RESPIRATORY: Breath sounds equal bilaterally. No accessory muscle use. GASTROINTESTINAL: Abdominal binder in place EXTREMITIES: SCDs to bilateral lower extremities MUSCULOSKELETAL: Increased muscle tone. NEUROLOGICAL: Sedated Assessment/Plan - Plan Ms. Perea is a pleasant 82-year-old lady with a history of lung cancer, multifocal amyloidosis, lymphomoplasmacytic disorder and now gastrointestinal bleeding. 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 She is not having any overt bleeding. Platelet count has fallen slightly but not to a level which is problematic. At admission she had a platelet count of approximately 20,000 with large platelets suggesting ITP and for this reason I gave her steroids. She recently had a second surgery with gastrojejunostomy on 05/[address] James. 1. Platelet count remained stable. The Solu-Medrol will be continued at 60 mg daily for now. If platelet count is higher tomorrow we can plan to decrease the Solu-Medrol to 40 mg. 2. Recent gastrojejunostomy management per surgery. 3. Monitor CBC. Monitor for bleeding. 4. Supportive care - Attending Statement The exam, history, and the medical decision-making described in the above note were completed with the assistance of the mid-level provider. I reviewed and agree with the findings presented. I attest that I had a [id number] encounter with the patient on the same day, and personally performed and documented my assessment and findings in the medical record.Patient remains intubated and sedated. She just had closure of the wound and placement of gastrojejunostomy tube. No obvious bleeding noted. Platelets stable at 61, 000. Continue Solu-Medrol 60 mg daily for now. Continue supportive care and monitor CBC.
--- NOTE | 2018-05-23 14:13 | ECG ---
Date Performed: 05/22/2018 Time Performed: 23:35:52 PTAGE: 82 years EKG: Sinus bradycardia. Prolonged QT interval Borderline ECG PREVIOUS TRACING :05/19/2018 @18.25 Compared to previous tracing, bradycardia replaces tachycar radhika. DOCTOR: Kody Rob Interpretating Date/Time 05/23/2018 14:12:28
[2018-05-23 17:00] LABS: ABG Base Excess -4.5 mmol/L (-2-2); ABG PCO2 36 mmHg (38-42); ABG PO2 80 mmHg (61-120)
[2018-05-23 17:01] LABS: Potassium 4.1 meq/L (3.5-5.1)
[2018-05-23 17:03] LABS: Phosphorus 3.6 mg/dL (2.5-4.9)
[2018-05-24] MEDS: Pantoprazole Inj 80 MG in Sodium Chlor 0.9% Inj 100 ML IV.CONT SCH ×4 (00:03→20:12)
[2018-05-24] MEDS: Propofol 1000 mg/100 ml Inj 1,000 MG/100 ML BOTTLE IV.CONT PRN ×3 (02:57→19:53)
[2018-05-24] MEDS: Sod Chloride 0.9% Inj 1,000 ML IV.CONT SCH ×2 (02:58→07:42)
[2018-05-24 04:26] LABS: Hematocrit 31.5 % (35.0-46.0); Hemoglobin 10.6 gm/dL (11.6-15.3); Mean Corpuscular HGB Conc 33.8 % (32.0-36.0); Mean Corpuscular Hemoglobin 29.7 pg (27.0-34.0); Mean Platelet Volume 8.4 fL (7.0-11.0); Platelet Count 75 th/mm3 (150-450); Red Blood Count 3.57 mil/mm3 (4.00-5.30); Red Cell Distribution Width 16.1 % (11.6-17.2); White Blood Count 9.9 th/mm3 (4.0-11.0)
[2018-05-24 05:06] LABS: Calcium 6.9 mg/dL (8.5-10.1); Carbon Dioxide 24.4 meq/L (21.0-32.0); Magnesium 2.4 mg/dL (1.5-2.5); Phosphorus 3.2 mg/dL (2.5-4.9); Potassium 4.2 meq/L (3.5-5.1)
[2018-05-24 05:12] LABS: Albumin 1.5 g/dL (3.4-5.0); Calcium-Albumin Corrected 8.9 mg/dL (8.5-10.1)
[2018-05-24] MEDS: fentaNYL 10 mcg/mL Premix Drip 2,500 MCG/250 ML BAG IV.SIG PRN ×2 (05:20→20:15)
[2018-05-24] MEDS: Lidocaine 5% Patch T-DERMAL SCH (08:09)
[2018-05-24] MEDS: Senna/Docusate Sodium 8.6/50 MG Tablet PO SCH ×2 (08:09→20:12)
[2018-05-24] MEDS: MethylPREDNISolone Sod Succinate Inj 40 MG/ML Vial IV.PUSH SCH (08:09)
[2018-05-24] MEDS: Artificial Tears Opth Oint 3.5 GM Tube EACH EYE SCH ×2 (08:09→20:13)
[2018-05-24] MEDS: Heparin Central Flush 100 UNIT/ML 5 ML Vial IV.FLUSH SCH (08:10)
--- NOTE | 2018-05-24 09:23 | P.PNCC ---
Subjective Subjective Remarks/Hospital Course: Hospital Course: 82yF with history of amyloidosis who presented with GI bleeding, hypotension, and severe anemia. originally admitted to the floor. hgb continued to downtrend despite transfusions. today taken for EGD which found blood in the stomach and clot, but no active bleeding. despite this, hgb still did not improve. taken for bleeding scan which was very +. discussed case with Dr. Garcia/Dr. Garland in IR. review of admission CT abd/pelvis demonstrates possible bleeding at duodenal bulb concerning for ulceration. Taken emergently to IR for embolization which appears to be successful. I evaluated the patient upon arrival to the ICU post-IR procedure. she is stable. complaining of hip pain. hgb has improved appropriately. she denies other complaints. she asked me not to look at her groin sites because "my hips hurt and I am tired." Recent evaluation by bedside RN is without hematoma, and this evaluation is deferred at patient's request (bedside RN to continue to monitor for signs of hematoma). remainder of ROS negative. Subjective: 05/20: doing well. complaining of moderate abdominal pain 5/10. receiving iv dilaudid currently. plan for EGD today. hgb dropped from 7.8 to 7.4, but slightly more tachycardic today, and I am worried about ongoing bleeding, although it does appear to be much slower clinically than yesterday. I discussed with GI CLAIMS ADJUSTOR that per my conversation with IR, the lesion may be in the 4th portion of the duodenum near the ligament and it may require further investigation that usual EGD, and possibly push enteroscopy. She stated she would convey to the proceduralist. Dr. Shin suggests type II NSTEMI secondary to anemia and I agree completely with his assessment. Given that she is going soon for repeat EGD with anesthesia, will give 1 additional unit of prbc as she clearly has demonstrated she needs higher hematocrit for oxygen carrying capacity to her known ischemic CAD lesions. 05/21: s/p exploratory laparotomy last night. open abdomen. hgb stable. became acutely hypotensive with increased wound vac output one time today- emergently gave 1 unit prbc and 1 unit plt empirically given sudden change in condition. significant 3rd space losses requiring additional resuscitative efforts. remains deeply sedated. off vasopressors. remains intubated. 05/22: more hemodynamically stable today. hgb stable. still high wound-vac output with 300-500mL/12h. uop remains adequate at 70-80mL/hr, but Cr slightly elevated over baseline. unable to start diuresis yet and clinically although developing anasarca in the tissues, appears intravascularly euvolemic but not overloaded. likely will not tolerate diuresis efforts without significant kidney injury at this present juncture. needs bringback and washout in OR, but will leave timing of this to general surgery. 05/23: Received from operating room in good condition. Abdominal wound closed following gastrojejunostomy. Joseph-Vieira drain in region of the duodenal stump, gastric anastomosis. Nasogastric tube to not be moved, good position in stomach, keep to low intermittent suction. Downstream jejunostomy tube for initiation of trickle feeds. Renal function this morning excellent, follow closely. Chemical ventilation for the next couple of days as we observe tension on the abdominal wall. Meticulously avoid fluid overload. At present she is hypertensive and tachycardic for which we will restart propofol and use boluses of fentanyl as needed. Baseline fentanyl drip is infusing. 05/24: Remains warm and well-perfused overnight. Urine output acceptable at 35- 40 cc/h. Tolerated spontaneous breathing trial well this morning, we keep on vent for another 24-48 hours. Generalized edema persists. Objective Vital Signs / I&O: Vital Signs 05/23/18 09:49 05/23/18 10:00 05/23/18 11:00 Temperature 98.9 F Pulse Rate 86 87 130 H Respiratory Rate 14 14 Blood Pressure Pulse Oximetry 96 91 L 95 05/23/18 11:14 05/23/18 12:00 05/23/18 13:00 Temperature 98.6 F Pulse Rate 114 H 125 H 111 H Respiratory Rate 14 14 14 Blood Pressure Pulse Oximetry 95 96 97 05/23/18 14:00 05/23/18 15:00 05/23/18 15:08 Temperature Pulse Rate 101 H 94 H 92 H Respiratory Rate 14 14 14 Blood Pressure Pulse Oximetry 96 95 94 L 05/23/18 16:00 05/23/18 17:00 05/23/18 18:00 Temperature 98.3 F Pulse Rate 96 H 101 H 102 H Respiratory Rate 14 14 15 Blood Pressure Pulse Oximetry 93 L 94 L 94 L 05/23/18 19:00 05/23/18 19:36 05/23/18 19:41 Temperature 99.1 F Pulse Rate 89 85 Respiratory Rate 14 14 14 Blood Pressure 113/50 L Pulse Oximetry 94 L 94 L 05/23/18 20:00 05/23/18 21:00 05/23/18 22:00 Temperature 99.0 F 98.9 F Pulse Rate 86 93 H 88 Respiratory Rate 15 14 14 Blood Pressure 116/50 L 114/50 L Pulse Oximetry 95 94 L 95 05/23/18 23:00 05/23/18 23:45 05/24/18 00:00 Temperature 98.9 F Pulse Rate 84 81 83 Respiratory Rate 14 14 14 Blood Pressure 115/49 L Pulse Oximetry 95 95 95 05/24/18 01:00 05/24/18 02:00 05/24/18 03:00 Temperature 98.7 F Pulse Rate 85 82 81 Respiratory Rate 14 14 14 Blood Pressure 113/52 L Pulse Oximetry 95 95 96 05/24/18 03:55 05/24/18 04:00 05/24/18 05:00 Temperature Pulse Rate 80 81 89 Respiratory Rate 15 14 16 Blood Pressure Pulse Oximetry 96 96 96 05/24/18 06:00 05/24/18 07:00 05/24/18 07:40 Temperature 98.2 F 98.5 F Pulse Rate 88 92 H 118 H Respiratory Rate 16 14 21 Blood Pressure Pulse Oximetry 96 96 98 05/24/18 08:00 Temperature Pulse Rate 102 H Respiratory Rate 14 Blood Pressure Pulse Oximetry 96 Intake & Output 05/23/18 05/24/18 05/24/18 18:59 06:59 18:59 Intake Total 2574 / 2574 680 / 680 Output Total 1160 / 1160 720 / 720 95 / 95 Balance 1414 / 1414 -40 / -40 -95 / -95 Weight 93.8 kg Intake: IV 1910 / 0 450 / 450 Versed Inj 100 mg In 100 ml @ 1 100 / 100 MG/HR 1 mls/hr IV.CONT TITRATE PRN Rx#:[id number] Protonix Inj 80 MG In NS Inj 100 / 100 100 / 100 100 ML @ 10 mls/hr IV.CONT Q10H VALERY Rx#:[id number] Diprivan 1000 mg/100 ml Inj 1, 100 / 100 100 / 100 000 mg In 100 ml @ 5 MCG/KG/MIN 2.922 mls/hr IV.CONT TITRATE PRN Rx#:[id number] NS Inj 1,000 ML @ 125 mls/hr IV 1000 / 1000 .CONT .Q8H VALERY Rx#:[id number] Potassium Phosphate Inj 30 MMOL 260 / 260 In NS Inj 250 ML @ 42 mls/hr IV.SIG UNSCH PRN Rx#:[id number] Ancef 1 GM Premix Inj 2 gm In 100 / 100 100 ml @ 0 mls/hr IV.SIG .STK- MED ONE Rx#:[id number] fentaNYL 10 mcg/mL Premix Drip 250 / 250 250 / 250 2,500 mcg In 250 ml @ 50 MCG/HR 5 mls/hr IV.SIG TITRATE PRN Rx #:[id number] Tube Feeding 64 / 64 230 / 230 Anesthesia Amount 600 / 600 Output: Estimated Blood Loss 50 / 50 Urine Amount (Catheter) 700 / 700 420 / 420 Indwelling Urethral Catheter 700 / 700 420 / 420 Gastric Drainage 300 / 300 200 / 200 Jejunostomy Tube 0 / 0 Left Nare Nasogastric Tube 200 / 200 200 / 200 Orogastric Tube 100 / 100 Wound Drainage 110 / 110 100 / 100 95 / 95 # 2 Left Abdomen 110 / 110 100 / 100 95 / 95 Other: Mode Setting Midline Abdomen Continuous Date of Last Bowel Movement 05/23/18 05/23/18 05/23/18 # Bowel Movements 1 Result Diagrams: 05/24/18 04:00 05/24/18 04:00 Objective Remarks: GENERAL: Well sedated patient, mechanically ventilated, calm. HEENT: Normocephalic. Atraumatic. GEOVANI. Orotracheal intubation. CHEST: Clear breath sounds bilaterally, equal chest rise. No adventitious sounds. CARDIOVASCULAR: Normal S1-S2. Regular normal rate, regular rhythm. No JVD. ABDOMEN: Fascia closed, postsurgical wound. Soft, nondistended. Few bowel sounds heard. MUSCULOSKELETAL: Bilateral foot pulses 2+. Trace foot and ankle edema. Warm and well-perfused fingers and toes. NEUROLOGICAL: RASS -2, withdraws 4 limbs, breathing spontaneously over the ventilator. Opens eyes to loud voice. Assessment and Plan - Assessment and Plan Plan: Assessment: 82yF with amyloidosis and active GI bleed. s/p emergent IA embolization 05/19. s/p EGD 05/19 and again 05/20 with ischemia present. s/p emergent exploratory laparotomy with duodenal and jejunal resection, initially left in discontinuity with open abdomen, and now reconstructed with abdominal wall closure. Remains critically ill. Plan to keep mechanically ventilated for at least 2 days postoperative while the edema resolves and abdominal wall tension lessons. Active upper GI bleed Acute hypoxic and hypercarbic respiratory failure Open abdomen severe acute anemia secondary to blood loss requiring transfusion- persistent duodenal ulcer Type II NSTEMI secondary to demand ischemia from severe anemia s/p exploratory laparotomy with duodenal, jejunal resection, left in discontinuity with open abdomen 05/20 s/p EGD 05/19 s/p EGD 05/20 s/p emergent IR embolization 05/19 severe acute thrombocytopenia acute protein calorie malnutrition- moderate to severe acute intravascular hypovolemia Plan: - PRVC ventilator mode. Daily spontaneous breathing trial. - propofol, fentanyl for goal RASS -2 to - 3 - Serial hemoglobin - serially check platelets - transfuse to keep hgb > 7 - transfuse to keep plt > 50k - Nasogastric tube to low intermittent suction, if displaced do not move. If removed leave out. - Daily am cbc, bmp, mg, phos - ICU electrolyte replacement protocol - strict NPO - SCDs - continue NS @ 50/hr - Trickle feeds ordered through jejunostomy. Advance per surgical service Overall impression: This patient remains critically ill with fluctuating renal function and compromised respiratory reserve due to recent resuscitation volume and generalized edema, complicated by abdominal wall closure now. Critical care 36 mins
[2018-05-24] MEDS: Albumin Human 25% Inj 100 ML IV.SIG SCH ×2 (10:21→18:31)
[2018-05-24] MEDS: Midazolam 100 MG/100 ML Inj 100 MG/100 ML BAG IV.CONT PRN (10:31)
--- NOTE | 2018-05-24 10:47 | P.DIET ---
Nutritional Evaluation Type of nutrition evaluation: initial Nutrition consult regarding: Tube Feeding Objective - Diagnosis GI Bleed - Objective Body Mass Index: 29.7 % IBW: 143 Body Weight Used for Calculations: IBW (56.8kg) Energy Needs - Lower Range (kCal/kg): 22 Energy Needs - Upper Range (kCal/kg): 25 Lower Limit kCal/kg (kCals): 1,250 Upper Limit kCal/kg (kCals): 1,420 Lower Limit Protein Factor (Grams per Kg): 1.5 Upper Limit Protein Factor (Grams per Kg): 2 Lower Protein Needs (Protein): 85 Upper Protein Needs (Protein): 114 Dietitian Reviewed in Medical Record: Current diet, Curent medications, Intake & Output, Labs, Medical history, Tube feeding Diet Order: NPO Objective Comments: Current clinical course per MD: amyloidosis and active GI bleed. s/p emergent IA embolization 05/19. s/p EGD 05/19 and again 05/20 with ischemia present. s/p emergent exploratory laparotomy with duodenal and jejunal resection, initially left in discontinuity with open abdomen, and now reconstructed with abdominal wall closure. 05/23 GJ tube placement Assessment Assessment: Pt at high nutritional risk r/t current clinical status (see above) and need for a TF for nutrition support. Pt intubated and sedated on propofol. Her nutritional needs are as assessed above. Per MD, trickle feeds of Vital High Protein at 20ml/hr. To meet pt's nutritional needs, a goal rate of 55ml/hr is necessary to provide 1320kcals, 116gms protein and 1104mls free water. Propofol adds additional kcals when running. Will monitor TF tolerance, clinical course. Recommendations: TF Vital High Protein with goal rate 55ml/hr. Dietitian to Monitor: Lab values, Intake & Output, Tube feeding tolerance, Weight change, Medical course
--- NOTE | 2018-05-24 12:25 | P.PNONC ---
Subjective Interval history: Afebrile Patient remains intubated and sedated No bleeding per [employer] Multiple family members at bedside Objective Vital Signs/Intake & Output: Vital Signs 05/23/18 13:00 05/23/18 14:00 05/23/18 15:00 Temperature Pulse Rate 111 H 101 H 94 H Respiratory Rate 14 14 14 Blood Pressure Pulse Oximetry 97 96 95 05/23/18 15:08 05/23/18 16:00 05/23/18 17:00 Temperature 98.3 F Pulse Rate 92 H 96 H 101 H Respiratory Rate 14 14 14 Blood Pressure Pulse Oximetry 94 L 93 L 94 L 05/23/18 18:00 05/23/18 19:00 05/23/18 19:36 Temperature 99.1 F Pulse Rate 102 H 89 Respiratory Rate 15 14 14 Blood Pressure 113/50 L Pulse Oximetry 94 L 94 L 94 L 05/23/18 19:41 05/23/18 20:00 05/23/18 21:00 Temperature 99.0 F 98.9 F Pulse Rate 85 86 93 H Respiratory Rate 14 15 14 Blood Pressure 116/50 L 114/50 L Pulse Oximetry 95 94 L 05/23/18 22:00 05/23/18 23:00 05/23/18 23:45 Temperature Pulse Rate 88 84 81 Respiratory Rate 14 14 14 Blood Pressure Pulse Oximetry 95 95 95 05/24/18 00:00 05/24/18 01:00 05/24/18 02:00 Temperature 98.9 F 98.7 F Pulse Rate 83 85 82 Respiratory Rate 14 14 14 Blood Pressure 115/49 L 113/52 L Pulse Oximetry 95 95 95 05/24/18 03:00 05/24/18 03:55 05/24/18 04:00 Temperature Pulse Rate 81 80 81 Respiratory Rate 14 15 14 Blood Pressure Pulse Oximetry 96 96 96 05/24/18 05:00 05/24/18 06:00 05/24/18 07:00 Temperature 98.2 F 98.5 F Pulse Rate 89 88 92 H Respiratory Rate 16 16 14 Blood Pressure Pulse Oximetry 96 96 96 05/24/18 07:40 05/24/18 08:00 05/24/18 09:00 Temperature Pulse Rate 118 H 102 H 93 H Respiratory Rate 21 14 14 Blood Pressure Pulse Oximetry 98 96 93 L 05/24/18 10:00 05/24/18 11:00 Temperature Pulse Rate 90 94 H Respiratory Rate 14 14 Blood Pressure Pulse Oximetry 93 L 93 L Intake & Output 05/23/18 05/24/18 05/24/18 18:59 06:59 18:59 Intake Total 2574 / 2574 680 / 680 300 / 300 Output Total 1160 / 1160 720 / 720 95 / 95 Balance 1414 / 1414 -40 / -40 205 / 205 Weight 206 lb 12.697 oz Intake: IV 1910 / 1910 450 / 450 300 / 300 Versed Inj 100 mg In 100 ml @ 1 100 / 100 100 / 100 MG/HR 1 mls/hr IV.CONT TITRATE PRN Rx#:[id number] Protonix Inj 80 MG In NS Inj 100 / 100 100 / 100 100 / 100 100 ML @ 10 mls/hr IV.CONT Q10H AKIN Rx#:[id number] Diprivan 1000 mg/100 ml Inj 1, 100 / 100 100 / 100 100 / 100 000 mg In 100 ml @ 5 MCG/KG/MIN 2.922 mls/hr IV.CONT TITRATE PRN Rx#:[id number] NS Inj 1,000 ML @ 125 mls/hr IV 1000 / 1000 .CONT .Q8H AKIN Rx#:[id number] Potassium Phosphate Inj 30 MMOL 260 / 260 In NS Inj 250 ML @ 42 mls/hr IV.SIG UNSCH PRN Rx#:[id number] Ancef 1 GM Premix Inj 2 gm In 100 / 100 100 ml @ 0 mls/hr IV.SIG .STK- MED ONE Rx#:[id number] fentaNYL 10 mcg/mL Premix Drip 250 / 250 250 / 250 2,500 mcg In 250 ml @ 50 MCG/HR 5 mls/hr IV.SIG TITRATE PRN Rx #:[id number] Tube Feeding 64 / 64 230 / 230 Anesthesia Amount 600 / 600 Output: Estimated Blood Loss 50 / 50 Urine Amount (Catheter) 700 / 700 420 / 420 Indwelling Urethral Catheter 700 / 700 420 / 420 Gastric Drainage 300 / 300 200 / 200 Jejunostomy Tube 0 / 0 Left Nare Nasogastric Tube 200 / 200 200 / 200 Orogastric Tube 100 / 100 Wound Drainage 110 / 110 100 / 100 95 / 95 # 2 Left Abdomen 110 / 110 100 / 100 95 / 95 Other: Mode Setting Midline Abdomen Continuous Date of Last Bowel Movement 05/23/18 05/23/18 05/23/18 # Bowel Movements 1 Result Diagrams: 05/24/18 04:00 05/24/18 04:00 Laboratory Results: Laboratory Results - last 24 hr 05/23/18 05/23/18 05/24/18 16:12 16:16 04:00 WBC 9.9 RBC 3.57 L Hgb 10.6 L Hct 31.5 L MCV 88.0 MCH 29.7 MCHC 33.8 RDW 16.1 Plt Count 75 L MPV 8.4 Puncture Site Art line Patient Temperature 98.6 O2 Saturation 94 ABG pH 7.37 L ABG pCO2 36 L ABG pO2 80 ABG HCO3 20 L ABG O2 Content 15.4 ABG Base Excess -4.5 L ABG Methemoglobin 0.7 Hemoglobin 11.5 L Carboxyhemoglobin 1.2 O2 Delivery Device Ventilator Vent Setting [id number]/[id number]/[id number] Inspired O2 40 Critical Value No Sodium Potassium 4.1 Chloride Carbon Dioxide Anion Gap BUN Creatinine Estimated GFR Random Glucose Calcium Calcium Adj for Albumin Phosphorus 3.6 D Magnesium Albumin 05/24/18 04:00 WBC RBC Hgb Hct MCV MCH MCHC RDW Plt Count MPV Puncture Site Patient Temperature O2 Saturation ABG pH ABG pCO2 ABG pO2 ABG HCO3 ABG O2 Content ABG Base Excess ABG Methemoglobin Hemoglobin Carboxyhemoglobin O2 Delivery Device Vent Setting Inspired O2 Critical Value Sodium 149 H Potassium 4.2 Chloride 118 H Carbon Dioxide 24.4 Anion Gap 7 BUN 27 H Creatinine 0.66 Estimated GFR 86 L Random Glucose 115 H Calcium 6.9 L* Calcium Adj for Albumin 8.9 Phosphorus 3.2 Magnesium 2.4 Albumin 1.5 L Medications: Active Medications Generic Name Dose Route Start Last Admin Trade Name Freq PRN Reason Stop Dose Admin Hydrocodone Bitart/Acetaminophen 1 tab 05/19/18 10:01 05/19/18 13:15 [place] 5/325 PO 1 tab Q6H PRN Administration Pain 2-5 Hydrocodone Bitart/Acetaminophen 1 tab 05/19/18 10:01 05/19/18 20:10 [place] 10/325 PO 1 tab Q6H PRN Administration Pain 6-10 Albuterol 1 ampul 05/23/18 04:00 05/24/18 07:34 Duoneb Neb (Akin) NEB 1 ampul Q4HR NEB AKIN Administration Artificial Tears 1 applicatio 05/22/18 21:00 05/24/18 08:09 Lacrilube Opth Oint EACH EYE 1 applicatio BID AKIN Administration Fentanyl Citrate 100 mcg 05/23/18 10:59 05/23/18 11:12 Fentanyl Inj IV.PUSH 100 mcg Q1H PRN Administration Any pain Heparin Sodium (Porcine) 0 unit 05/21/18 09:00 05/24/18 08:10 Heparin Central Flush IV.FLUSH 500 unit DAILY AKIN Administration Hydralazine HCl 10 mg 05/23/18 00:24 05/23/18 10:39 Apresoline Inj IV.PUSH 10 mg Q1H PRN Administration Sbp>165, Dbp>90 Hydromorphone HCl 2 mg 05/19/18 21:41 05/20/18 16:00 Dilaudid Pf Inj IV.PUSH 2 mg Q4H PRN Administration PAIN SCALE 6 -10 Sodium Chloride 1,000 mls @ 50 mls/hr 05/17/18 06:15 05/24/18 07:42 Ns Inj IV.CONT Not Given .Q20H AKIN Pantoprazole Sodium 80 mg/ 100 mls @ 10 mls/hr 05/17/18 09:00 05/24/18 10:57 Sodium Chloride IV.CONT 10 mls/hr Q10H AKIN Administration Sodium Chloride 500 mls @ 30 mls/hr 05/18/18 07:00 05/18/18 07:00 Ns Inj IV.SIG Not Given .Q10H AKIN Midazolam HCl 100 mg in 100 mls @ 1 mls/hr 05/20/18 19:25 05/24/18 10:31 Versed Inj IV.CONT 7 mg/hr TITRATE PRN 7 mls/hr See protocol Administration Protocol 1 MG/HR Fentanyl 2,500 mcg in 250 mls @ 5 mls/hr 05/20/18 20:00 05/24/18 05:53 Fentanyl 10 Mcg/Ml Premix Drip IV.SIG 150 mcg/hr TITRATE PRN 15 mls/hr Per Protocol Titration Protocol 50 MCG/HR Potassium Chloride 40 meq in 100 mls @ 25 mls/hr 05/22/18 22:43 05/23/18 03: 06 Kcl 40 Meq Premix Inj IV.SIG Infused UNSCH PRN Infusion For Potassium 3.3 - 3.5 mEq/L Potassium Phosphate 30 mmol/ 260 mls @ 42 mls/hr 05/22/18 22:43 05/23/18 12: 57 Sodium Chloride IV.SIG Infused UNSCH PRN Infusion SEE LABEL COMMENTS Propofol 1,000 mg in 100 mls @ 2.922 mls/hr 05/23/18 11:00 05/24/18 11:17 Diprivan 1000 Mg/100 Ml Inj IV.CONT 20 mcg/kg/min TITRATE PRN 11.69 mls/hr Per Protocol Administration Protocol 5 MCG/KG/MIN Albumin Human 100 mls @ 60 mls/hr 05/24/18 10:00 05/24/18 10:21 Flexbumin 25% Inj IV.SIG 05/26/18 23:59 60 mls/hr Q8H AKIN Administration Lidocaine HCl 2 patch 05/19/18 09:30 05/24/18 08:09 Lidoderm 5% Patch.12 Hr T-DERMAL 2 patch DAILY AKIN Administration Methylprednisolone Sodium Succinate 60 mg 05/23/18 09:00 05/24/18 08:09 Solumedrol Inj IV.PUSH 60 mg DAILY AKIN Administration Ondansetron HCl 4 mg 05/17/18 06:10 05/19/18 13:17 Zofran Inj IV.PUSH 4 mg Q6H PRN Administration NAUSEA OR VOMITING Patch Removal 1 each 05/19/18 21:00 05/24/18 08:09 Remove Old Patch T-DERMAL 1 each BID KAIN Administration Prochlorperazine Edisylate 10 mg 05/17/18 09:06 05/19/18 00:08 Compazine Inj IV.PUSH 10 mg Q6H PRN Administration NAUSEA Senna/Docusate Sodium 1 tab 05/17/18 09:00 05/24/18 08:09 Jessie-Colace PO 1 tab BID AKIN Administration Sodium Chloride 0 ml 05/21/18 09:00 05/24/18 08:09 Ns Flush IV.FLUSH 10 ml DAILY AKIN Administration Objective Remarks: GENERAL: Elderly female patient resting in bed intubated and sedated SKIN: Warm and dry. HEAD: Normocephalic. NECK: Supple, trachea midline. CARDIOVASCULAR: + S1/S2. RESPIRATORY: Breath sounds equal bilaterally. No accessory muscle use. GASTROINTESTINAL: Abdominal binder in place EXTREMITIES: SCDs to bilateral lower extremities MUSCULOSKELETAL: Increased muscle tone. NEUROLOGICAL: Sedated Assessment/Plan - Plan Ms. Perea is a pleasant 82-year-old lady with a history of lung cancer, multifocal amyloidosis, lymphomoplasmacytic disorder and now gastrointestinal bleeding. 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 She is not having any overt bleeding. Platelet count has fallen slightly but not to a level which is problematic. At admission she had a platelet count of approximately 20,000 with large platelets suggesting ITP and for this reason I gave her steroids. She recently had a second surgery with gastrojejunostomy on 05/[address] James. 1. Platelet count increasing. Consider decreasing solu-medrol if her platelet count continues to increase. We will continue to trend platelet count 2. Recent gastrojejunostomy; management per surgery. 3. Monitor CBC. Monitor for bleeding. 4. Supportive care - Attending Statement The exam, history, and the medical decision-making described in the above note were completed with the assistance of the mid-level provider. I reviewed and agree with the findings presented. I attest that I had a [id number] encounter with the patient on the same day, and personally performed and documented my assessment and findings in the medical record. Patient remains on ventilator and sedated. No obvious bleeding noted. Bilious output noted on the NG tube. Platelet count has trended up. Continue Solu-Medrol and start tapering if her platelet count continued to improve.
--- NOTE | 2018-05-24 14:54 | P.PNGS ---
Subjective Patient reports: afebrile (remains on vent, stable, tolerating tf at 20cc) Physical Exam Vital signs: Vital Signs 05/23/18 15:00 05/23/18 15:08 05/23/18 16:00 Temperature 98.3 F Pulse Rate 94 H 92 H 96 H Respiratory Rate 14 14 14 Blood Pressure Pulse Oximetry 95 94 L 93 L 05/23/18 17:00 05/23/18 18:00 05/23/18 19:00 Temperature 99.1 F Pulse Rate 101 H 102 H 89 Respiratory Rate 14 15 14 Blood Pressure 113/50 L Pulse Oximetry 94 L 94 L 94 L 05/23/18 19:36 05/23/18 19:41 05/23/18 20:00 Temperature 99.0 F Pulse Rate 85 86 Respiratory Rate 14 14 15 Blood Pressure 116/50 L Pulse Oximetry 94 L 95 05/23/18 21:00 05/23/18 22:00 05/23/18 23:00 Temperature 98.9 F Pulse Rate 93 H 88 84 Respiratory Rate 14 14 14 Blood Pressure 114/50 L Pulse Oximetry 94 L 95 95 05/23/18 23:45 05/24/18 00:00 05/24/18 01:00 Temperature 98.9 F 98.7 F Pulse Rate 81 83 85 Respiratory Rate 14 14 14 Blood Pressure 115/49 L 113/52 L Pulse Oximetry 95 95 95 05/24/18 02:00 05/24/18 03:00 05/24/18 03:55 Temperature Pulse Rate 82 81 80 Respiratory Rate 14 14 15 Blood Pressure Pulse Oximetry 95 96 96 05/24/18 04:00 05/24/18 05:00 05/24/18 06:00 Temperature 98.2 F Pulse Rate 81 89 88 Respiratory Rate 14 16 16 Blood Pressure Pulse Oximetry 96 96 96 05/24/18 07:00 05/24/18 07:40 05/24/18 08:00 Temperature 98.5 F Pulse Rate 92 H 118 H 102 H Respiratory Rate 14 21 14 Blood Pressure Pulse Oximetry 96 98 96 05/24/18 09:00 05/24/18 10:00 05/24/18 11:00 Temperature Pulse Rate 93 H 90 94 H Respiratory Rate 14 14 14 Blood Pressure Pulse Oximetry 93 L 93 L 93 L 05/24/18 12:00 05/24/18 12:48 Temperature 98.4 F Pulse Rate 97 H 97 H Respiratory Rate 14 14 Blood Pressure Pulse Oximetry 92 L 93 L Intake & Output 05/23/18 05/24/18 05/24/18 18:59 06:59 18:59 Intake Total 2574 / 2574 680 / 680 400 / 400 Output Total 1160 / 1160 720 / 720 1954 / 1954 Balance 1414 / 1414 -40 / -40 -1555 / -1555 Weight 93.8 kg Intake: IV 1910 / 1910 450 / 450 400 / 400 Versed Inj 100 mg In 100 ml @ 1 100 / 100 100 / 100 MG/HR 1 mls/hr IV.CONT TITRATE PRN Rx#:[id number] Protonix Inj 80 MG In NS Inj 100 / 100 100 / 100 100 / 100 100 ML @ 10 mls/hr IV.CONT Q10H VALERY Rx#:[id number] Diprivan 1000 mg/100 ml Inj 1, 100 / 100 100 / 100 100 / 100 000 mg In 100 ml @ 5 MCG/KG/MIN 2.922 mls/hr IV.CONT TITRATE PRN Rx#:[id number] NS Inj 1,000 ML @ 125 mls/hr IV 1000 / 1000 .CONT .Q8H VALERY Rx#:[id number] Flexbumin 25% Inj 100 ML @ 60 100 / 100 mls/hr IV.SIG Q8H VALERY Rx#: [id number] Potassium Phosphate Inj 30 MMOL 260 / 260 In NS Inj 250 ML @ 42 mls/hr IV.SIG UNSCH PRN Rx#:[id number] Ancef 1 GM Premix Inj 2 gm In 100 / 100 100 ml @ 0 mls/hr IV.SIG .STK- MED ONE Rx#:[id number] fentaNYL 10 mcg/mL Premix Drip 250 / 250 250 / 250 2,500 mcg In 250 ml @ 50 MCG/HR 5 mls/hr IV.SIG TITRATE PRN Rx #:[id number] Tube Feeding 64 / 64 230 / 230 Anesthesia Amount 600 / 600 Output: Estimated Blood Loss 50 / 50 Urine Amount (Catheter) 700 / 700 420 / 420 1750 / 1750 Indwelling Urethral Catheter 700 / 700 420 / 420 1750 / 1750 Gastric Drainage 300 / 300 200 / 200 Jejunostomy Tube 0 / 0 Left Nare Nasogastric Tube 200 / 200 200 / 200 Orogastric Tube 100 / 100 Wound Drainage 110 / 110 100 / 100 205 / 205 # 2 Left Abdomen 110 / 110 100 / 100 205 / 205 Other: Mode Setting Midline Abdomen Continuous Date of Last Bowel Movement 05/23/18 05/23/18 05/23/18 # Bowel Movements 1 - Routine Respiratory Exam Present: CTA bilaterally - Routine Abdominal Exam Present: soft (incision c/d/i, j tube in place c/d/i) - Urinary Catheter Management Indwelling Urethral Catheter Cath placed during this visit: yes Reason for continuing: Hourly intake/output Insertion date: 05/20/18 Insertion time: 19:55 Results - Labs 05/24/18 04:00 05/24/18 04:00 Laboratory Results - last 24 hr 05/23/18 05/23/18 05/24/18 16:12 16:16 04:00 WBC 9.9 RBC 3.57 L Hgb 10.6 L Hct 31.5 L MCV 88.0 MCH 29.7 MCHC 33.8 RDW 16.1 Plt Count 75 L MPV 8.4 Puncture Site Art line Patient Temperature 98.6 O2 Saturation 94 ABG pH 7.37 L ABG pCO2 36 L ABG pO2 80 ABG HCO3 20 L ABG O2 Content 15.4 ABG Base Excess -4.5 L ABG Methemoglobin 0.7 Hemoglobin 11.5 L Carboxyhemoglobin 1.2 O2 Delivery Device Ventilator Vent Setting Prvc/r14/vt500/p5 Inspired O2 40 Critical Value No Sodium Potassium 4.1 Chloride Carbon Dioxide Anion Gap BUN Creatinine Estimated GFR Random Glucose Calcium Calcium Adj for Albumin Phosphorus 3.6 D Magnesium Albumin 05/24/18 04:00 WBC RBC Hgb Hct MCV MCH MCHC RDW Plt Count MPV Puncture Site Patient Temperature O2 Saturation ABG pH ABG pCO2 ABG pO2 ABG HCO3 ABG O2 Content ABG Base Excess ABG Methemoglobin Hemoglobin Carboxyhemoglobin O2 Delivery Device Vent Setting Inspired O2 Critical Value Sodium 149 H Potassium 4.2 Chloride 118 H Carbon Dioxide 24.4 Anion Gap 7 BUN 27 H Creatinine 0.66 Estimated GFR 86 L Random Glucose 115 H Calcium 6.9 L* Calcium Adj for Albumin 8.9 Phosphorus 3.2 Magnesium 2.4 Albumin 1.5 L - Imaging Imaging: ITS Impressions GI Bleed Scan Nuclear Medicine 05/19/18 00:00 CONCLUSION: 1. 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 Patient was emergently brought to the interventional radiology department from the nuclear medicine department for angiography and intervention. Mesenteric Arteriogram 05/19/18 14:37 CONCLUSION: 1. 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 2. 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 Chest X-Ray 05/20/18 00:00 CONCLUSION: 1. Interval intubation and placement of right internal jugular central venous line with no pneumothorax. 2. New hazy opacity at the right lung base of concern for infiltrate. This could represent pneumonia. 3. Interval placement of nasogastric tube and right-sided PICC line. PICC Line Insertion 05/20/18 00:00 CONCLUSION: 1. Uncomplicated central venous Power PICC line placement. 2. The PICC line can be used immediately. Abdomen/Pelvis CT 05/20/18 18:16 CONCLUSION: 1. Nonspecific, nonobstructive bowel gas pattern which may represent a mild ileus or be related to the recent endoscopy and insufflation of air. There is no focal wall thickening or inflammatory change. There is no free air or fluid. 2. Nonobstructing left renal calculi. 3. Small effusions and mild consolidative opacity in both lung bases. Assessment and Plan - Assessment (1) GI bleed Code(s): K92.2 - Gastrointestinal hemorrhage, unspecified Status: Acute Plan: 82 year old female POD1 exploratory laparotomy, gastrojejunostomy, closure, j tube stable tf at 20cc PLAN continue vent per isc-defer to thier mgnt edema recieve lasix j tube feedings keep at 20cc for now, albumin 1.5 wean sedation as tolerated dvt ppx will follow closely
[2018-05-25] MEDS: Midazolam 100 MG/100 ML Inj 100 MG/100 ML BAG IV.CONT PRN (02:10)
[2018-05-25] MEDS: Albumin Human 25% Inj 100 ML IV.SIG SCH ×3 (02:10→17:29)
[2018-05-25] MEDS: Sod Chloride 0.9% Inj 1,000 ML IV.CONT SCH (02:27)
[2018-05-25 04:44] LABS: Hematocrit 27.9 % (35.0-46.0); Hemoglobin 9.5 gm/dL (11.6-15.3); Mean Corpuscular HGB Conc 34.1 % (32.0-36.0); Mean Corpuscular Hemoglobin 29.8 pg (27.0-34.0); Mean Corpuscular Volume 87.5 fL (80.0-100.0); Mean Platelet Volume 8.6 fL (7.0-11.0); Platelet Count 74 th/mm3 (150-450); Red Blood Count 3.19 mil/mm3 (4.00-5.30); Red Cell Distribution Width 16.1 % (11.6-17.2); White Blood Count 7.9 th/mm3 (4.0-11.0)
[2018-05-25] MEDS: Propofol 1000 mg/100 ml Inj 1,000 MG/100 ML BOTTLE IV.CONT PRN ×3 (05:06→19:05)
[2018-05-25 05:17] LABS: Anion Gap 4 meq/L (5-15); Blood Urea Nitrogen 28 mg/dL (7-18); Calcium 7.8 mg/dL (8.5-10.1); Chloride 118 meq/L (98-107); Glomerular Filtration Rate Greater Than 89 mL/min (>89); Glucose,Random 115 mg/dL (74-106); Magnesium 2.3 mg/dL (1.5-2.5); Potassium 3.8 meq/L (3.5-5.1); Sodium 149 meq/L (136-145)
--- NOTE | 2018-05-25 09:11 | P.PNGS ---
Subjective Interval history: Intubated/Sedated No issues overnight Physical Exam Vital signs: Vital Signs 05/24/18 10:00 05/24/18 11:00 05/24/18 12:00 Temperature 98.4 F Pulse Rate 90 94 H 97 H Respiratory Rate 14 14 14 Blood Pressure Pulse Oximetry 93 L 93 L 92 L 05/24/18 12:48 05/24/18 13:00 05/24/18 14:00 Temperature Pulse Rate 97 H 96 H 94 H Respiratory Rate 14 14 14 Blood Pressure Pulse Oximetry 93 L 93 L 93 L 05/24/18 15:00 05/24/18 15:46 05/24/18 16:00 Temperature Pulse Rate 91 H 89 94 H Respiratory Rate 14 14 14 Blood Pressure Pulse Oximetry 94 L 94 L 94 L 05/24/18 17:00 05/24/18 18:00 05/24/18 19:00 Temperature Pulse Rate 90 91 H 94 H Respiratory Rate 14 14 14 Blood Pressure Pulse Oximetry 94 L 94 L 94 L 05/24/18 19:24 05/24/18 20:00 05/24/18 21:00 Temperature Pulse Rate 97 H 99 H 96 H Respiratory Rate 14 14 14 Blood Pressure Pulse Oximetry 94 L 93 L 94 L 05/24/18 22:00 05/24/18 23:00 05/24/18 23:52 Temperature Pulse Rate 93 H 92 H 90 Respiratory Rate 14 14 14 Blood Pressure Pulse Oximetry 94 L 94 L 94 L 05/25/18 00:00 05/25/18 01:00 05/25/18 02:00 Temperature Pulse Rate 89 93 H 89 Respiratory Rate 14 14 14 Blood Pressure Pulse Oximetry 96 94 L 94 L 05/25/18 03:00 05/25/18 03:41 05/25/18 04:00 Temperature 98.7 F Pulse Rate 87 86 90 Respiratory Rate 14 14 14 Blood Pressure 145/70 H Pulse Oximetry 94 L 95 94 L 05/25/18 05:00 05/25/18 05:58 05/25/18 05:59 Temperature 98.7 F Pulse Rate 94 H 91 H 91 H Respiratory Rate 14 14 Blood Pressure 135/65 Pulse Oximetry 95 94 L 05/25/18 07:59 Temperature Pulse Rate 88 Respiratory Rate 14 Blood Pressure Pulse Oximetry 95 Intake & Output 05/24/18 05/25/18 05/25/18 18:59 06:59 18:59 Intake Total 655 / 655 2060 / 2060 Output Total 3015 / 3015 1000 / 1000 Balance -2360 / -2360 1060 / 1060 Weight 92.3 kg Intake: IV 400 / 400 1850 / 1850 Versed Inj 100 mg In 100 ml @ 1 100 / 100 100 / 100 MG/HR 1 mls/hr IV.CONT TITRATE PRN Rx#:[id number] Protonix Inj 80 MG In NS Inj 100 / 100 100 / 100 100 ML @ 10 mls/hr IV.CONT Q10H [facility] Rx#:[id number] Diprivan 1000 mg/100 ml Inj 1, 100 / 100 200 / 200 000 mg In 100 ml @ 5 MCG/KG/MIN 2.922 mls/hr IV.CONT TITRATE PRN Rx#:[id number] NS Inj 1,000 ML @ 50 mls/hr IV. 1000 / 1000 CONT .Q20H [facility] Rx#:[id number] Flexbumin 25% Inj 100 ML @ 60 100 / 100 200 / 200 mls/hr IV.SIG Q8H [facility] Rx#: [id number] fentaNYL 10 mcg/mL Premix Drip 250 / 250 2,500 mcg In 250 ml @ 50 MCG/HR 5 mls/hr IV.SIG TITRATE PRN Rx #:[id number] Tube Feeding 255 / 255 210 / 210 Output: Stool 0 / 0 Urine Amount (Catheter) 2400 / 2400 600 / 600 Indwelling Urethral Catheter 2400 / 2400 600 / 600 Gastric Drainage 300 / 300 100 / 100 Left Nare Nasogastric Tube 300 / 300 100 / 100 Wound Drainage 315 / 315 300 / 300 # 2 Left Abdomen 315 / 315 300 / 300 Other: Date of Last Bowel Movement 05/23/18 05/23/18 # Bowel Movements 0 Narrative: Intubated/Sedated Resp: CTAB Abd: soft; IRIS in place with good seal; [place] with serosanguineous drainage; J tube in place with TF Generalized edema in BLE - Urinary Catheter Management Indwelling Urethral Catheter Cath placed during this visit: yes Reason for continuing: Hourly intake/output Insertion date: 05/20/18 Insertion time: 19:55 Results - Labs 05/25/18 04:30 05/25/18 13:40 Laboratory Results - last 24 hr 05/25/18 05/25/18 04:30 04:30 WBC 7.9 RBC 3.19 L Hgb 9.5 L Hct 27.9 L MCV 87.5 MCH 29.8 MCHC 34.1 RDW 16.1 Plt Count 74 L MPV 8.6 Sodium 149 H Potassium 3.8 Chloride 118 H Carbon Dioxide 27.0 Anion Gap 4 L BUN 28 H Creatinine 0.63 Estimated GFR Greater than 89 Random Glucose 115 H Calcium 7.8 L D Phosphorus 3.0 Magnesium 2.3 - Imaging Imaging: ITS Impressions GI Bleed Scan Nuclear Medicine 05/19/18 00:00 CONCLUSION: 1. 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 Patient was emergently brought to the interventional radiology department from the nuclear medicine department for angiography and intervention. Mesenteric Arteriogram 05/19/18 14:37 CONCLUSION: 1. 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 2. 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 Chest X-Ray 05/20/18 00:00 CONCLUSION: 1. Interval intubation and placement of right internal jugular central venous line with no pneumothorax. 2. New hazy opacity at the right lung base of concern for infiltrate. This could represent pneumonia. 3. Interval placement of nasogastric tube and right-sided PICC line. PICC Line Insertion 05/20/18 00:00 CONCLUSION: 1. Uncomplicated central venous Power PICC line placement. 2. The PICC line can be used immediately. Abdomen/Pelvis CT 05/20/18 18:16 CONCLUSION: 1. Nonspecific, nonobstructive bowel gas pattern which may represent a mild ileus or be related to the recent endoscopy and insufflation of air. There is no focal wall thickening or inflammatory change. There is no free air or fluid. 2. Nonobstructing left renal calculi. 3. Small effusions and mild consolidative opacity in both lung bases. Assessment and Plan - Assessment (1) GI bleed Code(s): K92.2 - Gastrointestinal hemorrhage, unspecified Status: Acute Plan: 82 year old female POD2 exploratory laparotomy, gastrojejunostomy, closure, j tube -Tolerating TF at 20 cc; increase to 30 cc/hr; can increase slowly to a goal of 55 cc/hr -Vent per CCM -Edema improved -Wean sedation as tolerated -Will hold off of anticoagulation due to platelets 74k; recheck tomorrow - Plan I personally evaluated the patient in room 1309. She was ventilated and sedated. Her bedside nurse was present and indicated she is stop the Versed which she thinks is with keeping the patient from responding at this time. She is been hemodynamically stable throughout the day. She is being diuresed and has had significant urine output. Her potassium was checked and is slightly low and her potassium is being supplemented. She is tolerating her tube feeds at 30 cc an hour. She has had some smears of melena. Her drain is draining third space fluid is pink tinged serous fluid. Her PICC O dressing is intact. She remains edematous. 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 She is postop gastrojejunostomy feeding jejunostomy closure of abdomen and placement of feeding jejunostomy and iris dressing. He is continuing with critical care support and increasing the tube feeds for improved nutrition. Continue supportive therapy for low potassium. Hopeful for ventilator wean and ultimate extubation this week. The exam, history, and the medical decision-making described in the above note were completed with the assistance of the mid-level provider. I reviewed and agree with the findings presented. I attest that I had a [id number] encounter with the patient on the same day, and personally performed and documented my assessment and findings in the medical record.
--- NOTE | 2018-05-25 09:23 | P.PNCC ---
Subjective Subjective Remarks/Hospital Course: Hospital Course: 82yF with history of amyloidosis who presented with GI bleeding, hypotension, and severe anemia. originally admitted to the floor. hgb continued to downtrend despite transfusions. today taken for EGD which found blood in the stomach and clot, but no active bleeding. despite this, hgb still did not improve. taken for bleeding scan which was very +. discussed case with Dr. Garcia/Dr. Garland in IR. review of admission CT abd/pelvis demonstrates possible bleeding at duodenal bulb concerning for ulceration. Taken emergently to IR for embolization which appears to be successful. I evaluated the patient upon arrival to the ICU post-IR procedure. she is stable. complaining of hip pain. hgb has improved appropriately. she denies other complaints. she asked me not to look at her groin sites because "my hips hurt and I am tired." Recent evaluation by bedside RN is without hematoma, and this evaluation is deferred at patient's request (bedside RN to continue to monitor for signs of hematoma). remainder of ROS negative. Subjective: 05/20: doing well. complaining of moderate abdominal pain 5/10. receiving iv dilaudid currently. plan for EGD today. hgb dropped from 7.8 to 7.4, but slightly more tachycardic today, and I am worried about ongoing bleeding, although it does appear to be much slower clinically than yesterday. I discussed with GI STONE SPREADER OPERATOR that per my conversation with IR, the lesion may be in the 4th portion of the duodenum near the ligament and it may require further investigation that usual EGD, and possibly push enteroscopy. She stated she would convey to the proceduralist. Dr. Shin suggests type II NSTEMI secondary to anemia and I agree completely with his assessment. Given that she is going soon for repeat EGD with anesthesia, will give 1 additional unit of prbc as she clearly has demonstrated she needs higher hematocrit for oxygen carrying capacity to her known ischemic CAD lesions. 05/21: s/p exploratory laparotomy last night. open abdomen. hgb stable. became acutely hypotensive with increased wound vac output one time today- emergently gave 1 unit prbc and 1 unit plt empirically given sudden change in condition. significant 3rd space losses requiring additional resuscitative efforts. remains deeply sedated. off vasopressors. remains intubated. 05/22: more hemodynamically stable today. hgb stable. still high wound-vac output with 300-500mL/12h. uop remains adequate at 70-80mL/hr, but Cr slightly elevated over baseline. unable to start diuresis yet and clinically although developing anasarca in the tissues, appears intravascularly euvolemic but not overloaded. likely will not tolerate diuresis efforts without significant kidney injury at this present juncture. needs bringback and washout in OR, but will leave timing of this to general surgery. 05/23: Received from operating room in good condition. Abdominal wound closed following gastrojejunostomy. Joseph-Vieira drain in region of the duodenal stump, gastric anastomosis. Nasogastric tube to not be moved, good position in stomach, keep to low intermittent suction. Downstream jejunostomy tube for initiation of trickle feeds. Renal function this morning excellent, follow closely. Chemical ventilation for the next couple of days as we observe tension on the abdominal wall. Meticulously avoid fluid overload. At present she is hypertensive and tachycardic for which we will restart propofol and use boluses of fentanyl as needed. Baseline fentanyl drip is infusing. 05/24: Remains warm and well-perfused overnight. Urine output acceptable at 35- 40 cc/h. Tolerated spontaneous breathing trial well this morning, we keep on vent for another 24-48 hours. Generalized edema persists. 05/25: Intubated sedated heavily. Urine output excellent with Lasix overall 3 L. Currently remains grossly fluid overloaded approximately 20 kg up from admission weight. We will start scheduled Lasix 20 every 8 hours with potassium replacement to facilitate ventilator weaning Objective Vital Signs / I&O: Vital Signs 05/24/18 10:00 05/24/18 11:00 05/24/18 12:00 Temperature 98.4 F Pulse Rate 90 94 H 97 H Respiratory Rate 14 14 14 Blood Pressure Pulse Oximetry 93 L 93 L 92 L 05/24/18 12:48 05/24/18 13:00 05/24/18 14:00 Temperature Pulse Rate 97 H 96 H 94 H Respiratory Rate 14 14 14 Blood Pressure Pulse Oximetry 93 L 93 L 93 L 05/24/18 15:00 05/24/18 15:46 05/24/18 16:00 Temperature Pulse Rate 91 H 89 94 H Respiratory Rate 14 14 14 Blood Pressure Pulse Oximetry 94 L 94 L 94 L 05/24/18 17:00 05/24/18 18:00 05/24/18 19:00 Temperature Pulse Rate 90 91 H 94 H Respiratory Rate 14 14 14 Blood Pressure Pulse Oximetry 94 L 94 L 94 L 05/24/18 19:24 05/24/18 20:00 05/24/18 21:00 Temperature Pulse Rate 97 H 99 H 96 H Respiratory Rate 14 14 14 Blood Pressure Pulse Oximetry 94 L 93 L 94 L 05/24/18 22:00 05/24/18 23:00 05/24/18 23:52 Temperature Pulse Rate 93 H 92 H 90 Respiratory Rate 14 14 14 Blood Pressure Pulse Oximetry 94 L 94 L 94 L 05/25/18 00:00 05/25/18 01:00 05/25/18 02:00 Temperature Pulse Rate 89 93 H 89 Respiratory Rate 14 14 14 Blood Pressure Pulse Oximetry 96 94 L 94 L 05/25/18 03:00 05/25/18 03:41 05/25/18 04:00 Temperature 98.7 F Pulse Rate 87 86 90 Respiratory Rate 14 14 14 Blood Pressure 145/70 H Pulse Oximetry 94 L 95 94 L 05/25/18 05:00 05/25/18 05:58 05/25/18 05:59 Temperature 98.7 F Pulse Rate 94 H 91 H 91 H Respiratory Rate 14 14 Blood Pressure 135/65 Pulse Oximetry 95 94 L 05/25/18 07:59 Temperature Pulse Rate 88 Respiratory Rate 14 Blood Pressure Pulse Oximetry 95 Intake & Output 05/24/18 05/25/18 05/25/18 18:59 06:59 18:59 Intake Total 655 / 655 2060 / 2060 Output Total 3015 / 3015 1000 / 1000 Balance -2360 / -2360 1060 / 1060 Weight 92.3 kg Intake: IV 400 / 400 1850 / 1850 Versed Inj 100 mg In 100 ml @ 1 100 / 100 100 / 100 MG/HR 1 mls/hr IV.CONT TITRATE PRN Rx#:[id number] Protonix Inj 80 MG In NS Inj 100 / 100 100 / 100 100 ML @ 10 mls/hr IV.CONT Q10H [facility] Rx#:[id number] Diprivan 1000 mg/100 ml Inj 1, 100 / 100 200 / 200 000 mg In 100 ml @ 5 MCG/KG/MIN 2.922 mls/hr IV.CONT TITRATE PRN Rx#:[id number] NS Inj 1,000 ML @ 50 mls/hr IV. 1000 / 1000 CONT .Q20H [facility] Rx#:[id number] Flexbumin 25% Inj 100 ML @ 60 100 / 100 200 / 200 mls/hr IV.SIG Q8H [facility] Rx#: [id number] fentaNYL 10 mcg/mL Premix Drip 250 / 250 2,500 mcg In 250 ml @ 50 MCG/HR 5 mls/hr IV.SIG TITRATE PRN Rx #:[id number] Tube Feeding 255 / 255 210 / 210 Output: Stool 0 / 0 Urine Amount (Catheter) 2400 / 2400 600 / 600 Indwelling Urethral Catheter 2400 / 2400 600 / 600 Gastric Drainage 300 / 300 100 / 100 Left Nare Nasogastric Tube 300 / 300 100 / 100 Wound Drainage 315 / 315 300 / 300 # 2 Left Abdomen 315 / 315 300 / 300 Other: Date of Last Bowel Movement 05/23/18 05/23/18 # Bowel Movements 0 Result Diagrams: 05/25/18 04:30 05/25/18 04:30 Objective Remarks: GENERAL: Well sedated patient, mechanically ventilated, calm. HEENT: Normocephalic. Atraumatic. GEOVANI. Orotracheal intubation. CHEST: Clear breath sounds bilaterally, equal chest rise. Air entry diminished at the bases. No adventitious sounds. CARDIOVASCULAR: Normal S1-S2. Regular normal rate, regular rhythm. No JVD. ABDOMEN: Fascia closed, postsurgical wound intact, abdominal binder in place. Soft, nondistended. Few bowel sounds heard. MUSCULOSKELETAL: Bilateral foot pulses 2+. Trace foot and ankle edema. Warm and well-perfused fingers and toes. NEUROLOGICAL: RASS -2, withdraws 4 limbs, localizes, breathing spontaneously over the ventilator. Opens eyes to loud voice. Assessment and Plan - Assessment and Plan Plan: Assessment: 82yF with amyloidosis and active GI bleed. s/p emergent IA embolization 05/19. s/p EGD 05/19 and again 05/20 with ischemia present. s/p emergent exploratory laparotomy with duodenal and jejunal resection, initially left in discontinuity with open abdomen, and now reconstructed with abdominal wall closure. Remains critically ill. Plan to keep mechanically ventilated for at least 2 days postoperative while the edema resolves and abdominal wall tension lessons. Scheduled Lasix started for aggressive diuresis. Grossly fluid up approximately 20 kg Active upper GI bleed Acute hypoxic and hypercarbic respiratory failure s/p emergent exploratory laparotomy with duodenal and jejunal resection, initially left in discontinuity with open abdomen 05/20 Now reconstructed with abdominal wall closure. severe acute anemia secondary to blood loss requiring transfusion- persistent duodenal ulcer Type II NSTEMI secondary to demand ischemia from severe anemia s/p EGD 05/19, 05/20 s/p emergent IR embolization 05/19 severe acute thrombocytopenia acute protein calorie malnutrition- moderate to severe Fluid overload Plan: - PRVC ventilator mode. Daily spontaneous breathing trial. - propofol, fentanyl for goal RASS -2 to - 3. Discontinue Versed - Start IV Lasix 20 mg every 8 hours with potassium replacement - Grossly fluid positive approximately 20 kg. Need to get weight closer to admission weight prior to extubation - Discontinue IV fluids - Serial hemoglobin, transfuse to keep hgb > 7 - serially check platelets, transfuse to keep plt > 50k - Advance tube feeds per general surgery, through jejunostomy - Daily am cbc, bmp, mg, phos - ICU electrolyte replacement protocol - SCDs. Start subcu heparin if cleared by general surgery. Platelet count is 74 closely monitor Overall impression: This patient remains critically ill with fluctuating renal function, fluid overload and compromised respiratory reserve due to recent resuscitation volume and generalized edema, complicated by abdominal wall closure now. Critical care 35 mins Code Status: Full Discussed Condition With: General surgery
[2018-05-25] MEDS: Pantoprazole Inj 80 MG in Sodium Chlor 0.9% Inj 100 ML IV.CONT SCH ×2 (10:15→18:04)
[2018-05-25] MEDS: Heparin Central Flush 100 UNIT/ML 5 ML Vial IV.FLUSH SCH (10:18)
[2018-05-25] MEDS: Lidocaine 5% Patch T-DERMAL SCH (10:19)
[2018-05-25] MEDS: Artificial Tears Opth Oint 3.5 GM Tube EACH EYE SCH ×2 (10:19→20:34)
[2018-05-25] MEDS: Senna/Docusate Sodium 8.6/50 MG Tablet PO SCH ×2 (10:21→20:30)
[2018-05-25] MEDS: MethylPREDNISolone Sod Succinate Inj 40 MG/ML Vial IV.PUSH SCH (10:22)
--- NOTE | 2018-05-25 10:31 | XR ---
EXAM DATE: 05/25/2018 10:27 AM EST AGE/SEX: 82 years / Female INDICATIONS: Respiratory Failure. CLINICAL DATA: This is the patient's subsequent encounter. Patient reports that signs and symptoms h ave been present for 1 week and indicates a pain score of Nonresponsive. MEDICAL/SURGICAL HISTORY: None. . Lobectomy. Cardiac stent. COMPARISON: C, CHEST 1V SINGLE AP, 05/20/2018. . FINDINGS: The support devices remain in place. No evidence of pneumothorax. There continues to be scattered ino ateral pulmonary infiltrates. The pulmonary infiltrates in the right perihilar area are stable. There is a mild increase in the pulmonary infiltrates in the left lung base compared to the prior exam. Th e heart size is stable. Mild blunting of the left costophrenic angle suggestive of a small effusion. Otherwise, No significant pleural effusions. CONCLUSION: 1. There continues to be bilateral pulmonary infiltrates, stable on the right and increased in the l eft lung base compared to the prior exam. 2. Small left-sided effusion. Electronically signed by: Arron Jones MD 05/25/2018 10:30 AM EST
[2018-05-25] MEDS: fentaNYL 10 mcg/mL Premix Drip 2,500 MCG/250 ML BAG IV.SIG PRN (13:43)
[2018-05-25] MEDS: hydrALAZINE HCl Inj 20 MG/ML Vial IV.PUSH PRN (14:22)
[2018-05-25] MEDS: Potassium Chlor 40 mEq Premix 40 MEQ/100 ML PIGGYBACK IV.SIG PRN ×2 (15:09→19:06)
--- NOTE | 2018-05-25 15:54 | P.PNONC ---
Subjective Interval history: intubated and sedated. Objective Vital Signs/Intake & Output: Vital Signs 05/24/18 16:00 05/24/18 17:00 05/24/18 18:00 Temperature Pulse Rate 94 H 90 91 H Respiratory Rate 14 14 14 Blood Pressure Pulse Oximetry 94 L 94 L 94 L 05/24/18 19:00 05/24/18 19:24 05/24/18 20:00 Temperature Pulse Rate 94 H 97 H 99 H Respiratory Rate 14 14 14 Blood Pressure Pulse Oximetry 94 L 94 L 93 L 05/24/18 21:00 05/24/18 22:00 05/24/18 23:00 Temperature Pulse Rate 96 H 93 H 92 H Respiratory Rate 14 14 14 Blood Pressure Pulse Oximetry 94 L 94 L 94 L 05/24/18 23:52 05/25/18 00:00 05/25/18 01:00 Temperature Pulse Rate 90 89 93 H Respiratory Rate 14 14 14 Blood Pressure Pulse Oximetry 94 L 96 94 L 05/25/18 02:00 05/25/18 03:00 05/25/18 03:41 Temperature Pulse Rate 89 87 86 Respiratory Rate 14 14 14 Blood Pressure Pulse Oximetry 94 L 94 L 95 05/25/18 04:00 05/25/18 05:00 05/25/18 05:58 Temperature 98.7 F 98.7 F Pulse Rate 90 94 H 91 H Respiratory Rate 14 14 14 Blood Pressure 145/70 H 135/65 Pulse Oximetry 94 L 95 94 L 05/25/18 05:59 05/25/18 07:00 05/25/18 07:59 Temperature Pulse Rate 91 H 88 88 Respiratory Rate 14 14 Blood Pressure Pulse Oximetry 94 L 95 05/25/18 08:00 05/25/18 09:00 05/25/18 10:00 Temperature 98.5 F Pulse Rate 88 87 88 Respiratory Rate 14 14 14 Blood Pressure Pulse Oximetry 95 93 L 96 05/25/18 11:00 05/25/18 11:34 05/25/18 12:00 Temperature 99.8 F H Pulse Rate 109 H 98 H 98 H Respiratory Rate 14 14 14 Blood Pressure Pulse Oximetry 96 95 94 L Intake & Output 05/24/18 05/25/18 05/25/18 18:59 06:59 18:59 Intake Total 655 / 655 2060 / 2060 885 / 885 Output Total 3015 / 3015 1000 / 1000 2920 / 2920 Balance -2360 / -2360 1060 / 1060 -5 / -2034 Weight 92.3 kg Intake: IV 400 / 400 1850 / 1850 865 / 865 Versed Inj 100 mg In 100 ml @ 1 100 / 100 100 / 100 15 / 15 MG/HR 1 mls/hr IV.CONT TITRATE PRN Rx#:[id number] Protonix Inj 80 MG In NS Inj 100 / 100 100 / 100 100 / 100 100 ML @ 10 mls/hr IV.CONT Q10H AKIN Rx#:[id number] Diprivan 1000 mg/100 ml Inj 1, 100 / 100 200 / 200 100 / 100 000 mg In 100 ml @ 5 MCG/KG/MIN 2.922 mls/hr IV.CONT TITRATE PRN Rx#:[id number] NS Inj 1,000 ML @ 50 mls/hr IV. 1000 / 1000 300 / 300 CONT .Q20H AKIN Rx#:[id number] Flexbumin 25% Inj 100 ML @ 60 100 / 100 200 / 200 100 / 100 mls/hr IV.SIG Q8H AKIN Rx#: [id number] fentaNYL 10 mcg/mL Premix Drip 250 / 250 250 / 250 2,500 mcg In 250 ml @ 50 MCG/HR 5 mls/hr IV.SIG TITRATE PRN Rx #:[id number] Tube Feeding 255 / 255 210 / 210 Water Bolus Amount 20 / 20 Output: Stool 0 / 0 Urine Amount (Catheter) 2400 / 2400 600 / 600 2650 / 2650 Indwelling Urethral Catheter 2400 / 2400 600 / 600 2650 / 2650 Gastric Drainage 300 / 300 100 / 100 Left Nare Nasogastric Tube 300 / 300 100 / 100 Wound Drainage 315 / 315 300 / 300 270 / 270 # 2 Left Abdomen 315 / 315 300 / 300 270 / 270 Other: Date of Last Bowel Movement 05/23/18 05/23/18 # Bowel Movements 0 Result Diagrams: 05/25/18 04:30 05/25/18 13:40 Laboratory Results: Laboratory Results - last 24 hr 05/25/18 05/25/18 05/25/18 04:30 04:30 13:40 WBC 7.9 RBC 3.19 L Hgb 9.5 L Hct 27.9 L MCV 87.5 MCH 29.8 MCHC 34.1 RDW 16.1 Plt Count 74 L MPV 8.6 Sodium 149 H Potassium 3.8 3.1 L Chloride 118 H Carbon Dioxide 27.0 Anion Gap 4 L BUN 28 H Creatinine 0.63 Estimated GFR Greater than 89 Random Glucose 115 H Calcium 7.8 L D Phosphorus 3.0 Magnesium 2.3 05/25/18 13:40 WBC RBC Hgb Hct MCV MCH MCHC RDW Plt Count MPV Sodium Potassium Chloride Carbon Dioxide Anion Gap BUN Creatinine Estimated GFR Random Glucose Calcium Phosphorus Magnesium 2.2 Imaging Studies: Impressions Chest X-Ray 05/25/18 00:00 CONCLUSION: 1. There continues to be bilateral pulmonary infiltrates, stable on the right and increased in the left lung base compared to the prior exam. 2. Small left-sided effusion. Medications: Active Medications Generic Name Dose Route Start Last Admin Trade Name Freq PRN Reason Stop Dose Admin Hydrocodone Bitart/Acetaminophen 1 tab 05/19/18 10:01 05/19/18 13:15 Chandler 5/325 PO 1 tab Q6H PRN Administration Pain 2-5 Hydrocodone Bitart/Acetaminophen 1 tab 05/19/18 10:01 05/19/18 20:10 Chandler 10/325 PO 1 tab Q6H PRN Administration Pain 6-10 Albuterol 1 ampul 05/23/18 04:00 05/25/18 11:33 Duoneb Neb (Akin) NEB 1 ampul Q4HR NEB AKIN Administration Artificial Tears 1 applicatio 05/22/18 21:00 05/25/18 10:19 Lacrilube Opth Oint EACH EYE 1 applicatio BID AKIN Administration Fentanyl Citrate 100 mcg 05/23/18 10:59 05/23/18 11:12 Fentanyl Inj IV.PUSH 100 mcg Q1H PRN Administration Any pain Furosemide 20 mg 05/25/18 10:00 05/25/18 11:57 Lasix Inj IV.PUSH 20 mg Q8H AKIN Administration Heparin Sodium (Porcine) 0 unit 05/21/18 09:00 05/25/18 10:18 Heparin Central Flush IV.FLUSH 400 unit DAILY AKIN Administration Hydralazine HCl 10 mg 05/23/18 00:24 05/25/18 14:22 Apresoline Inj IV.PUSH 10 mg Q1H PRN Administration Sbp>165, Dbp>90 Hydromorphone HCl 2 mg 05/19/18 21:41 05/20/18 16:00 Dilaudid Pf Inj IV.PUSH 2 mg Q4H PRN Administration PAIN SCALE 6 -10 Pantoprazole Sodium 80 mg/ 100 mls @ 10 mls/hr 05/17/18 09:00 05/25/18 10:15 Sodium Chloride IV.CONT 10 mls/hr Q10H AKIN Administration Sodium Chloride 500 mls @ 30 mls/hr 05/18/18 07:00 05/18/18 07:00 Ns Inj IV.SIG Not Given .Q10H AKIN Fentanyl 2,500 mcg in 250 mls @ 5 mls/hr 05/20/18 20:00 05/25/18 15:09 Fentanyl 10 Mcg/Ml Premix Drip IV.SIG 200 mcg/hr TITRATE PRN 20 mls/hr Per Protocol Titration Protocol 50 MCG/HR Potassium Chloride 40 meq in 100 mls @ 25 mls/hr 05/22/18 22:43 05/25/18 15: 09 Kcl 40 Meq Premix Inj IV.SIG 25 mls/hr Q2H PRN Administration For Potassium 2.8 - 3.2 mEq/L Potassium Chloride 40 meq in 100 mls @ 25 mls/hr 05/22/18 22:43 05/23/18 03: 06 Kcl 40 Meq Premix Inj IV.SIG Infused UNSCH PRN Infusion For Potassium 3.3 - 3.5 mEq/L Potassium Phosphate 30 mmol/ 260 mls @ 42 mls/hr 05/22/18 22:43 05/23/18 12: 57 Sodium Chloride IV.SIG Infused UNSCH PRN Infusion SEE LABEL COMMENTS Propofol 1,000 mg in 100 mls @ 2.922 mls/hr 05/23/18 11:00 05/25/18 15:09 Diprivan 1000 Mg/100 Ml Inj IV.CONT 30 mcg/kg/min TITRATE PRN 17.53 mls/hr Per Protocol Titration Protocol 5 MCG/KG/MIN Albumin Human 100 mls @ 60 mls/hr 05/24/18 10:00 05/25/18 15:07 Flexbumin 25% Inj IV.SIG 05/26/18 23:59 Infused Q8H AKIN Infusion Lidocaine HCl 2 patch 05/19/18 09:30 05/25/18 10:19 Lidoderm 5% Patch.12 Hr T-DERMAL 2 patch DAILY AKIN Administration Methylprednisolone Sodium Succinate 60 mg 05/23/18 09:00 05/25/18 10:22 Solumedrol Inj IV.PUSH 60 mg DAILY AKIN Administration Ondansetron HCl 4 mg 05/17/18 06:10 05/19/18 13:17 Zofran Inj IV.PUSH 4 mg Q6H PRN Administration NAUSEA OR VOMITING Patch Removal 1 each 05/19/18 21:00 05/25/18 10:21 Remove Old Patch T-DERMAL 1 each BID AKIN Administration Prochlorperazine Edisylate 10 mg 05/17/18 09:06 05/19/18 00:08 Compazine Inj IV.PUSH 10 mg Q6H PRN Administration NAUSEA Senna/Docusate Sodium 1 tab 05/17/18 09:00 05/25/18 10:21 Jessie-Colace PO 1 tab BID AKIN Administration Sodium Chloride 0 ml 05/21/18 09:00 05/25/18 10:21 Ns Flush IV.FLUSH 2 ml DAILY AKIN Administration Objective Remarks: GENERAL: Acutely ill on ventilator with J-tube. SKIN: Warm and dry. HEAD: Normocephalic. EYES: No scleral icterus. No injection or drainage. NECK: Supple, trachea midline. No JVD or lymphadenopathy. LYMPHATIC: No adenopathy. CARDIOVASCULAR: Regular rate and rhythm without murmurs. RESPIRATORY: Decreased sounds at the bases GASTROINTESTINAL: Abdomen soft, mild distention and edematous. EXTREMITIES: Bilateral edema +3 NEUROLOGICAL: Sedated Assessment/Plan - Plan Thrombocytopenia is persistent and stable. No severe bleeding. 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 Will plan on decreasing the steroids in the next several days and see what happens. I am concerned that high-dose steroids will cause problems with healing and it will not be hard to monitor her platelet counts and resume or alter treatments as necessary..
[2018-05-26] MEDS: Albumin Human 25% Inj 100 ML IV.SIG SCH ×3 (01:38→17:53)
[2018-05-26] MEDS: HYDROmorphone PF Inj 2 MG/ML Vial IV.PUSH PRN (02:26)
[2018-05-26] MEDS: Propofol 1000 mg/100 ml Inj 1,000 MG/100 ML BOTTLE IV.CONT PRN (02:27)
[2018-05-26 03:28] LABS: Hematocrit 25.3 % (35.0-46.0); Hemoglobin 8.4 gm/dL (11.6-15.3); Mean Corpuscular HGB Conc 33.2 % (32.0-36.0); Mean Corpuscular Hemoglobin 29.5 pg (27.0-34.0); Mean Corpuscular Volume 88.9 fL (80.0-100.0); Mean Platelet Volume 9.3 fL (7.0-11.0); Platelet Count 91 th/mm3 (150-450); Red Blood Count 2.84 mil/mm3 (4.00-5.30); Red Cell Distribution Width 15.9 % (11.6-17.2); White Blood Count 5.4 th/mm3 (4.0-11.0)
[2018-05-26 03:46] LABS: Alanine Aminotransferase 12 U/L (10-53); Albumin 3.3 g/dL (3.4-5.0); Anion Gap 6 meq/L (5-15); Aspartate Aminotransferase 9 U/L (15-37); Blood Urea Nitrogen 36 mg/dL (7-18); Carbon Dioxide 29.4 meq/L (21.0-32.0); Chloride 116 meq/L (98-107); Glomerular Filtration Rate 69 mL/min (>89); Glucose,Random 118 mg/dL (74-106); Magnesium 2.3 mg/dL (1.5-2.5); Phosphorus 2.7 mg/dL (2.5-4.9); Potassium 3.7 meq/L (3.5-5.1); Sodium 151 meq/L (136-145)
[2018-05-26 03:48] LABS: Alkaline Phosphatase 40 U/L (45-117); Total Protein 5.8 g/dL (6.4-8.2)
[2018-05-26] MEDS: Pantoprazole Inj 80 MG in Sodium Chlor 0.9% Inj 100 ML IV.CONT SCH ×2 (04:57→15:38)
[2018-05-26] MEDS: fentaNYL 10 mcg/mL Premix Drip 2,500 MCG/250 ML BAG IV.SIG PRN (05:00)
[2018-05-26] MEDS: hydrALAZINE HCl Inj 20 MG/ML Vial IV.PUSH PRN ×3 (08:04→21:08)
[2018-05-26] MEDS: Labetalol HCl Inj 100 MG/20 ML Vial IV.PUSH PRN ×4 (08:20→23:29)
[2018-05-26] MEDS: Potassium Chloride 25 MEQ Effervescent Tablet NG/OG SCH ×2 (09:00→21:02)
[2018-05-26] MEDS: Lidocaine 5% Patch T-DERMAL SCH (09:03)
[2018-05-26] MEDS: Senna/Docusate Sodium 8.6/50 MG Tablet PO SCH ×2 (09:04→21:02)
[2018-05-26] MEDS: Heparin Central Flush 100 UNIT/ML 5 ML Vial IV.FLUSH SCH (09:05)
[2018-05-26] MEDS: MethylPREDNISolone Sod Succinate Inj 40 MG/ML Vial IV.PUSH SCH (09:05)
[2018-05-26] MEDS: Artificial Tears Opth Oint 3.5 GM Tube EACH EYE SCH ×2 (09:06→21:02)
[2018-05-26] MEDS ORDERED: niCARdipine Inj 25 MG in Sodium Chlor 0.9% Inj 240 ML IV.CONT PRN (09:47)
--- NOTE | 2018-05-26 09:57 | P.PNCC ---
Subjective Subjective Remarks/Hospital Course: Hospital Course: 82yF with history of amyloidosis who presented with GI bleeding, hypotension, and severe anemia. originally admitted to the floor. hgb continued to downtrend despite transfusions. today taken for EGD which found blood in the stomach and clot, but no active bleeding. despite this, hgb still did not improve. taken for bleeding scan which was very +. discussed case with Dr. Garcia/Dr. Garland in IR. review of admission CT abd/pelvis demonstrates possible bleeding at duodenal bulb concerning for ulceration. Taken emergently to IR for embolization which appears to be successful. I evaluated the patient upon arrival to the ICU post-IR procedure. she is stable. complaining of hip pain. hgb has improved appropriately. she denies other complaints. she asked me not to look at her groin sites because "my hips hurt and I am tired." Recent evaluation by bedside RN is without hematoma, and this evaluation is deferred at patient's request (bedside RN to continue to monitor for signs of hematoma). remainder of ROS negative. Subjective: 05/20: doing well. complaining of moderate abdominal pain 5/10. receiving iv dilaudid currently. plan for EGD today. hgb dropped from 7.8 to 7.4, but slightly more tachycardic today, and I am worried about ongoing bleeding, although it does appear to be much slower clinically than yesterday. I discussed with GI [employer] SUPERVISOR that per my conversation with IR, the lesion may be in the 4th portion of the duodenum near the ligament and it may require further investigation that usual EGD, and possibly push enteroscopy. She stated she would convey to the proceduralist. Dr. Shin suggests type II NSTEMI secondary to anemia and I agree completely with his assessment. Given that she is going soon for repeat EGD with anesthesia, will give 1 additional unit of prbc as she clearly has demonstrated she needs higher hematocrit for oxygen carrying capacity to her known ischemic CAD lesions. 05/21: s/p exploratory laparotomy last night. open abdomen. hgb stable. became acutely hypotensive with increased wound vac output one time today- emergently gave 1 unit prbc and 1 unit plt empirically given sudden change in condition. significant 3rd space losses requiring additional resuscitative efforts. remains deeply sedated. off vasopressors. remains intubated. 05/22: more hemodynamically stable today. hgb stable. still high wound-vac output with 300-500mL/12h. uop remains adequate at 70-80mL/hr, but Cr slightly elevated over baseline. unable to start diuresis yet and clinically although developing anasarca in the tissues, appears intravascularly euvolemic but not overloaded. likely will not tolerate diuresis efforts without significant kidney injury at this present juncture. needs bringback and washout in OR, but will leave timing of this to general surgery. 05/23: Received from operating room in good condition. Abdominal wound closed following gastrojejunostomy. Joseph-Vieira drain in region of the duodenal stump, gastric anastomosis. Nasogastric tube to not be moved, good position in stomach, keep to low intermittent suction. Downstream jejunostomy tube for initiation of trickle feeds. Renal function this morning excellent, follow closely. Chemical ventilation for the next couple of days as we observe tension on the abdominal wall. Meticulously avoid fluid overload. At present she is hypertensive and tachycardic for which we will restart propofol and use boluses of fentanyl as needed. Baseline fentanyl drip is infusing. 05/24: Remains warm and well-perfused overnight. Urine output acceptable at 35- 40 cc/h. Tolerated spontaneous breathing trial well this morning, we keep on vent for another 24-48 hours. Generalized edema persists. 05/25: Intubated sedated heavily. Urine output excellent with Lasix overall 3 L. Currently remains grossly fluid overloaded approximately 20 kg up from admission weight. We will start scheduled Lasix 20 every 8 hours with potassium replacement to facilitate ventilator weaning. 05/26: [facility] Being diuresed. Elevated BP on lightening sedation noted. Objective Vital Signs / I&O: Vital Signs 05/25/18 10:00 05/25/18 11:00 05/25/18 11:34 Temperature Pulse Rate 89 109 H 98 H Respiratory Rate 14 14 14 Blood Pressure Pulse Oximetry 96 96 95 05/25/18 12:00 05/25/18 13:00 05/25/18 14:00 Temperature 99.8 F H Pulse Rate 98 H 108 H 107 H Respiratory Rate 14 14 14 Blood Pressure Pulse Oximetry 94 L 92 L 94 L 05/25/18 15:00 05/25/18 16:00 05/25/18 16:19 Temperature 99.7 F H Pulse Rate 121 H 97 H 89 Respiratory Rate 15 14 14 Blood Pressure Pulse Oximetry 92 L 92 L 93 L 05/25/18 17:00 05/25/18 18:00 05/25/18 19:00 Temperature Pulse Rate 86 83 78 Respiratory Rate 14 14 14 Blood Pressure Pulse Oximetry 93 L 94 L 94 L 05/25/18 19:10 05/25/18 20:00 05/25/18 21:00 Temperature 99.5 F Pulse Rate 84 94 H 90 Respiratory Rate 14 18 14 Blood Pressure Pulse Oximetry 96 97 93 L 05/25/18 22:00 05/25/18 23:00 05/25/18 23:15 Temperature Pulse Rate 86 73 Respiratory Rate 14 14 14 Blood Pressure Pulse Oximetry 95 95 96 05/25/18 23:34 05/26/18 00:00 05/26/18 01:00 Temperature 99.6 F Pulse Rate 73 74 95 H Respiratory Rate 14 14 14 Blood Pressure Pulse Oximetry 95 94 L 05/26/18 01:49 05/26/18 02:00 05/26/18 03:00 Temperature Pulse Rate 109 H 77 Respiratory Rate 14 14 14 Blood Pressure Pulse Oximetry 96 97 95 05/26/18 03:06 05/26/18 04:00 05/26/18 04:32 Temperature 99.3 F Pulse Rate 72 97 H Respiratory Rate 14 19 14 Blood Pressure Pulse Oximetry 96 95 05/26/18 05:00 05/26/18 06:00 05/26/18 06:44 Temperature Pulse Rate 78 86 100 H Respiratory Rate 17 18 22 Blood Pressure 184/79 H Pulse Oximetry 95 97 96 05/26/18 07:00 05/26/18 08:44 05/26/18 08:45 Temperature Pulse Rate 91 H 94 H Respiratory Rate 21 14 14 Blood Pressure Pulse Oximetry 95 94 L Intake & Output 05/25/18 05/26/18 05/26/18 18:59 06:59 18:59 Intake Total 1085 / 1085 1678 / 1678 Output Total 4945 / 4945 2790 / 2790 Balance -3860 / -3860 -1112 / -1112 Weight 88.1 kg Intake: IV 1065 / 1065 750 / 750 Versed Inj 100 mg In 100 ml @ 1 15 / 15 MG/HR 1 mls/hr IV.CONT TITRATE PRN Rx#:[id number] Protonix Inj 80 MG In NS Inj 200 / 200 100 / 100 100 ML @ 10 mls/hr IV.CONT Q10H VALERY Rx#:[id number] Diprivan 1000 mg/100 ml Inj 1, 100 / 100 200 / 200 000 mg In 100 ml @ 5 MCG/KG/MIN 2.922 mls/hr IV.CONT TITRATE PRN Rx#:[id number] NS Inj 1,000 ML @ 50 mls/hr IV. 300 / 300 CONT .Q20H VALERY Rx#:[id number] Flexbumin 25% Inj 100 ML @ 60 200 / 200 100 / 100 mls/hr IV.SIG Q8H VALERY Rx#: [id number] KCl 40 mEq Premix Inj 40 meq In 100 / 100 100 ml @ 25 mls/hr IV.SIG Q2H PRN Rx#:[id number] fentaNYL 10 mcg/mL Premix Drip 250 / 250 250 / 250 2,500 mcg In 250 ml @ 50 MCG/HR 5 mls/hr IV.SIG TITRATE PRN Rx #:[id number] Tube Feeding 868 / 868 Water Bolus Amount 20 / 20 60 / 60 Output: Urine Amount (Catheter) 3875 / 3875 2150 / 2150 Indwelling Urethral Catheter 3875 / 3875 2150 / 2150 Gastric Drainage 700 / 700 450 / 450 Left Nare Nasogastric Tube 700 / 700 450 / 450 Wound Drainage 370 / 370 190 / 190 # 2 Left Abdomen 370 / 370 190 / 190 Other: Date of Last Bowel Movement 05/23/18 05/23/18 Result Diagrams: 05/26/18 03:12 05/26/18 03:12 Imaging: Impressions Chest X-Ray 05/25/18 00:00 CONCLUSION: 1. There continues to be bilateral pulmonary infiltrates, stable on the right and increased in the left lung base compared to the prior exam. 2. Small left-sided effusion. Objective Remarks: GENERAL: Well sedated patient, mechanically ventilated, calm. HEENT: Normocephalic. Atraumatic. GEOVANI. Orotracheal intubation. CHEST: Clear breath sounds bilaterally, equal chest rise. Air entry diminished at the bases. No adventitious sounds. CARDIOVASCULAR: Normal S1-S2. Regular normal rate, regular rhythm. No JVD. ABDOMEN: Fascia closed, postsurgical wound intact, abdominal binder in place. Soft, nondistended. Few bowel sounds heard. MUSCULOSKELETAL: Bilateral foot pulses 2+. Trace foot and ankle edema. Warm and well-perfused fingers and toes. NEUROLOGICAL: RASS -2, withdraws 4 limbs, localizes, breathing spontaneously over the ventilator. Opens eyes to loud voice. Assessment and Plan - Assessment and Plan Plan: Assessment: 82yF with amyloidosis and active GI bleed. s/p emergent IA embolization 05/19. s/p EGD 05/19 and again 05/20 with ischemia present. s/p emergent exploratory laparotomy with duodenal and jejunal resection, initially left in discontinuity with open abdomen, and now reconstructed with abdominal wall closure. Remains critically ill. Scheduled Lasix started for aggressive diuresis. Grossly fluid up approximately 20 kg Active upper GI bleed Acute hypoxic and hypercarbic respiratory failure s/p emergent exploratory laparotomy with duodenal and jejunal resection, initially left in discontinuity with open abdomen 05/20 Now reconstructed with abdominal wall closure. severe acute anemia secondary to blood loss requiring transfusion- persistent duodenal ulcer Type II NSTEMI secondary to demand ischemia from severe anemia s/p EGD 05/19, 05/20 s/p emergent IR embolization 05/19 severe acute thrombocytopenia acute protein calorie malnutrition- moderate to severe Fluid overload Plan: - PRVC ventilator mode. Daily spontaneous breathing trial. - propofol, fentanyl for goal RASS -2 to - 3. Discontinue Versed - Continue IV Lasix 20 mg every 8 hours with potassium replacement - Grossly fluid positive approximately 20 kg. Need to get weight closer to admission weight prior to extubation - Off IV fluids - Labetalol prn, Cardene gtt to keep SBP less than 160mm Hg, Norvasc 5mg via J tube daily started 05/26 - Serial hemoglobin, transfuse to keep hgb > 7 - serially check platelets, transfuse to keep plt > 50k - Advance tube feeds per general surgery, through jejunostomy - Daily am cbc, bmp, mg, phos - ICU electrolyte replacement protocol - SCDs. Start subcu heparin if cleared by general surgery. Overall impression: This patient remains critically ill with fluctuating renal function, fluid overload and compromised respiratory reserve due to recent resuscitation volume and generalized edema, complicated by abdominal wall closure now. Critical care 35 mins
[2018-05-26] MEDS: amLODIPine 5 MG Tablet J-TUBE SCH (11:11)
[2018-05-26] MEDS: Clevidipine Inj 25 MG/50 ML VIAL IV.CONT PRN ×6 (11:56→23:16)
[2018-05-26 12:05] LABS: Hematocrit 30.4 % (35.0-46.0); Hemoglobin 10.1 gm/dL (11.6-15.3); Mean Corpuscular HGB Conc 33.2 % (32.0-36.0); Mean Corpuscular Hemoglobin 29.9 pg (27.0-34.0); Mean Corpuscular Volume 90.2 fL (80.0-100.0); Mean Platelet Volume 8.8 fL (7.0-11.0); Platelet Count 116 th/mm3 (150-450); Red Blood Count 3.37 mil/mm3 (4.00-5.30); Red Cell Distribution Width 16.5 % (11.6-17.2); White Blood Count 10.8 th/mm3 (4.0-11.0)
--- NOTE | 2018-05-26 12:20 | P.PNGS ---
Subjective Interval history: Intubated/Sedated KEILY [place] at bedside Physical Exam Vital signs: Vital Signs 05/25/18 13:00 05/25/18 14:00 05/25/18 15:00 Temperature Pulse Rate 108 H 107 H 121 H Respiratory Rate 14 14 15 Blood Pressure Pulse Oximetry 92 L 94 L 92 L 05/25/18 16:00 05/25/18 16:19 05/25/18 17:00 Temperature 99.7 F H Pulse Rate 97 H 89 86 Respiratory Rate 14 14 14 Blood Pressure Pulse Oximetry 92 L 93 L 93 L 05/25/18 18:00 05/25/18 19:00 05/25/18 19:10 Temperature Pulse Rate 83 78 84 Respiratory Rate 14 14 14 Blood Pressure Pulse Oximetry 94 L 94 L 96 05/25/18 20:00 05/25/18 21:00 05/25/18 22:00 Temperature 99.5 F Pulse Rate 94 H 90 86 Respiratory Rate 18 14 14 Blood Pressure Pulse Oximetry 97 93 L 95 05/25/18 23:00 05/25/18 23:15 05/25/18 23:34 Temperature Pulse Rate 73 73 Respiratory Rate 14 14 14 Blood Pressure Pulse Oximetry 95 96 05/26/18 00:00 05/26/18 01:00 05/26/18 01:49 Temperature 99.6 F Pulse Rate 74 95 H Respiratory Rate 14 14 14 Blood Pressure Pulse Oximetry 95 94 L 96 05/26/18 02:00 05/26/18 03:00 05/26/18 03:06 Temperature Pulse Rate 109 H 77 72 Respiratory Rate 14 14 14 Blood Pressure Pulse Oximetry 97 95 05/26/18 04:00 05/26/18 04:32 05/26/18 05:00 Temperature 99.3 F Pulse Rate 97 H 78 Respiratory Rate 19 14 17 Blood Pressure Pulse Oximetry 96 95 95 05/26/18 06:00 05/26/18 06:44 05/26/18 07:00 Temperature Pulse Rate 86 100 H 91 H Respiratory Rate 18 22 21 Blood Pressure 184/79 H Pulse Oximetry 97 96 95 05/26/18 08:44 05/26/18 08:45 Temperature Pulse Rate 94 H Respiratory Rate 14 14 Blood Pressure Pulse Oximetry 94 L Intake & Output 05/25/18 05/26/18 05/26/18 18:59 06:59 18:59 Intake Total 1085 / 1085 1678 / 1678 Output Total 4945 / 4945 2790 / 2790 Balance -3860 / -3860 -1112 / -1112 Weight 88.1 kg Intake: IV 1065 / 1065 750 / 750 Versed Inj 100 mg In 100 ml @ 1 15 / 15 MG/HR 1 mls/hr IV.CONT TITRATE PRN Rx#:[id number] Protonix Inj 80 MG In NS Inj 200 / 200 100 / 100 100 ML @ 10 mls/hr IV.CONT Q10H VALERY Rx#:[id number] Diprivan 1000 mg/100 ml Inj 1, 100 / 100 200 / 200 000 mg In 100 ml @ 5 MCG/KG/MIN 2.922 mls/hr IV.CONT TITRATE PRN Rx#:[id number] NS Inj 1,000 ML @ 50 mls/hr IV. 300 / 300 CONT .Q20H VALERY Rx#:[id number] Flexbumin 25% Inj 100 ML @ 60 200 / 200 100 / 100 mls/hr IV.SIG Q8H VALERY Rx#: [id number] KCl 40 mEq Premix Inj 40 meq In 100 / 100 100 ml @ 25 mls/hr IV.SIG Q2H PRN Rx#:[id number] fentaNYL 10 mcg/mL Premix Drip 250 / 250 250 / 250 2,500 mcg In 250 ml @ 50 MCG/HR 5 mls/hr IV.SIG TITRATE PRN Rx #:[id number] Tube Feeding 868 / 868 Water Bolus Amount 20 / 20 60 / 60 Output: Urine Amount (Catheter) 3875 / 3875 2150 / 2150 Indwelling Urethral Catheter 3875 / 3875 2150 / 2150 Gastric Drainage 700 / 700 450 / 450 Left Nare Nasogastric Tube 700 / 700 450 / 450 Wound Drainage 370 / 370 190 / 190 # 2 Left Abdomen 370 / 370 190 / 190 Other: Date of Last Bowel Movement 05/23/18 05/23/18 05/26/18 Narrative: Intubated/Sedated Abd: soft; IRIS in place; [place] with sanguinous drainage; binder in place Generalized edema - Urinary Catheter Management Indwelling Urethral Catheter Cath placed during this visit: yes Reason for continuing: Hourly intake/output Insertion date: 05/20/18 Insertion time: 19:55 Results - Labs 05/26/18 11:51 12/04/18 03:12 Laboratory Results - last 24 hr 05/25/18 05/25/18 05/26/18 13:40 13:40 00:52 WBC RBC Hgb Hct MCV MCH MCHC RDW Plt Count MPV Fibrinogen Sodium Potassium 3.1 L Chloride Carbon Dioxide Anion Gap BUN Creatinine Estimated GFR POC Glucose 121 H Random Glucose Calcium Phosphorus Magnesium 2.2 Total Bilirubin AST ALT Alkaline Phosphatase Total Protein Albumin 05/26/18 05/26/18 05/26/18 03:12 03:12 03:12 WBC 5.4 RBC 2.84 L Hgb 8.4 L Hct 25.3 L MCV 88.9 MCH 29.5 MCHC 33.2 RDW 15.9 Plt Count 91 L MPV 9.3 Fibrinogen 443 H Sodium 151 H Potassium 3.7 Chloride 116 H Carbon Dioxide 29.4 Anion Gap 6 BUN 36 H Creatinine 0.80 Estimated GFR 69 L POC Glucose Random Glucose 118 H Calcium 8.0 L Phosphorus 2.7 Magnesium 2.3 Total Bilirubin 0.8 AST 9 L ALT 12 Alkaline Phosphatase 40 L Total Protein 5.8 L D Albumin 3.3 L D 05/26/18 11:51 WBC 10.8 D RBC 3.37 L Hgb 10.1 L Hct 30.4 L MCV 90.2 MCH 29.9 MCHC 33.2 RDW 16.5 Plt Count 116 L MPV 8.8 Fibrinogen Sodium Potassium Chloride Carbon Dioxide Anion Gap BUN Creatinine Estimated GFR POC Glucose Random Glucose Calcium Phosphorus Magnesium Total Bilirubin AST ALT Alkaline Phosphatase Total Protein Albumin - Imaging Imaging: ITS Impressions GI Bleed Scan Nuclear Medicine 05/19/18 00:00 CONCLUSION: 1. 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 Patient was emergently brought to the interventional radiology department from the nuclear medicine department for angiography and intervention. Mesenteric Arteriogram 05/19/18 14:37 CONCLUSION: 1. 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 2. 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 PICC Line Insertion 05/20/18 00:00 CONCLUSION: 1. Uncomplicated central venous Power PICC line placement. 2. The PICC line can be used immediately. Abdomen/Pelvis CT 05/20/18 18:16 CONCLUSION: 1. Nonspecific, nonobstructive bowel gas pattern which may represent a mild ileus or be related to the recent endoscopy and insufflation of air. There is no focal wall thickening or inflammatory change. There is no free air or fluid. 2. Nonobstructing left renal calculi. 3. Small effusions and mild consolidative opacity in both lung bases. Chest X-Ray 05/25/18 00:00 CONCLUSION: 1. There continues to be bilateral pulmonary infiltrates, stable on the right and increased in the left lung base compared to the prior exam. 2. Small left-sided effusion. Assessment and Plan - Assessment (1) GI bleed Code(s): K92.2 - Gastrointestinal hemorrhage, unspecified Status: Acute Plan: 82 year old female POD3 exploratory laparotomy, gastrojejunostomy, closure, j tube -Tolerating TF at goal of 55 cc/hr -Vent per CCM -Currently diuresing -Wean sedation as tolerated -CBC pending at noon---will follow up on results - Plan I personally evaluated the patient in room 1309. Patient does open her eyes but does not follow commands at this time. She is gradually weaning from sedation. Her lung sounds are clear to auscultation anteriorly bilaterally. Her nasogastric tube is draining bilious drainage, no sign of bloody fluid from the nasogastric tube. Her bedside nurse indicates that she did vomit some and therefore she put her nasogastric tube on continuous suction. Her abdomen is soft. She is tolerating tube feeds at 55 cc/h and her J-tube site at the level of the skin is clean and dry. Her iris dressing remains intact with a tiny spot of dried drainage on it. Her jejunostomy tube is draining yellow serous fluid. There is a small amount of clot in the bulb. She has liquid bowel movement that is slightly dark. Her extremities remain moderately edematous but somewhat decreased from yesterday. Her urine output is clear and she continues to diurese. She is presently on CPAP with an FiO2 of 45%. She appears comfortable. She is a mild sinus tachycardia with a heart rate of 112 and her blood pressure is systolic 140 and she is on a blood pressure medication. Her hemoglobin was 10.1 and her platelet count was 116. 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 Patient remains on steroids which is gradually being tapered for thrombocytopenia, question ITP. She appears to be improving, somewhat slowly, on a daily basis. Continue support, gradual ventilator weaning in hopes of extubating. Plan study of gastrojejunostomy for patency and emptying sometime in the next 4 or 5 days. The exam, history, and the medical decision-making described in the above note were completed with the assistance of the mid-level provider. I reviewed and agree with the findings presented. I attest that I had a [id number] encounter with the patient on the same day, and personally performed and documented my assessment and findings in the medical record.
--- NOTE | 2018-05-26 19:27 | P.PNONC ---
Subjective Interval history: less sedated. Objective Vital Signs/Intake & Output: Vital Signs 05/25/18 20:00 05/25/18 21:00 05/25/18 22:00 Temperature 99.5 F Pulse Rate 94 H 90 86 Respiratory Rate 18 14 14 Blood Pressure Pulse Oximetry 97 93 L 95 05/25/18 23:00 05/25/18 23:15 05/25/18 23:34 Temperature Pulse Rate 73 73 Respiratory Rate 14 14 14 Blood Pressure Pulse Oximetry 95 96 05/26/18 00:00 05/26/18 01:00 05/26/18 01:49 Temperature 99.6 F Pulse Rate 74 95 H Respiratory Rate 14 14 14 Blood Pressure Pulse Oximetry 95 94 L 96 05/26/18 02:00 05/26/18 03:00 05/26/18 03:06 Temperature Pulse Rate 109 H 77 72 Respiratory Rate 14 14 14 Blood Pressure Pulse Oximetry 97 95 05/26/18 04:00 05/26/18 04:32 05/26/18 05:00 Temperature 99.3 F Pulse Rate 97 H 78 Respiratory Rate 19 14 17 Blood Pressure Pulse Oximetry 96 95 95 05/26/18 06:00 05/26/18 06:44 05/26/18 07:00 Temperature Pulse Rate 86 100 H 91 H Respiratory Rate 18 22 21 Blood Pressure 184/79 H Pulse Oximetry 97 96 95 05/26/18 08:00 05/26/18 08:30 05/26/18 08:44 Temperature 99.5 F Pulse Rate 92 H 97 H 94 H Respiratory Rate 16 14 Blood Pressure Pulse Oximetry 96 94 L 05/26/18 08:45 05/26/18 09:00 05/26/18 09:15 Temperature Pulse Rate 106 H 107 H 110 H Respiratory Rate 14 Blood Pressure Pulse Oximetry 94 L 94 L 93 L 05/26/18 09:30 05/26/18 09:45 05/26/18 10:00 Temperature Pulse Rate 106 H 106 H 103 H Respiratory Rate 14 Blood Pressure Pulse Oximetry 92 L 93 L 93 L 05/26/18 10:15 05/26/18 10:30 05/26/18 10:45 Temperature Pulse Rate 104 H 102 H 86 Respiratory Rate Blood Pressure Pulse Oximetry 94 L 93 L 92 L 05/26/18 11:00 05/26/18 11:15 05/26/18 11:30 Temperature Pulse Rate 98 H 105 H 103 H Respiratory Rate 16 Blood Pressure Pulse Oximetry 94 L 95 96 05/26/18 11:45 05/26/18 12:00 05/26/18 12:15 Temperature 98.8 F Pulse Rate 108 H 109 H 123 H Respiratory Rate 18 Blood Pressure Pulse Oximetry 94 L 95 94 L 05/26/18 12:30 05/26/18 12:45 05/26/18 13:00 Temperature Pulse Rate 111 H 108 H 106 H Respiratory Rate Blood Pressure Pulse Oximetry 96 95 95 05/26/18 13:01 05/26/18 13:02 05/26/18 13:15 Temperature Pulse Rate 106 H 106 H Respiratory Rate 22 21 Blood Pressure Pulse Oximetry 94 L 95 05/26/18 13:30 05/26/18 13:45 05/26/18 14:00 Temperature Pulse Rate 119 H 109 H 115 H Respiratory Rate 26 H 25 H 25 H Blood Pressure Pulse Oximetry 95 95 94 L 05/26/18 14:15 05/26/18 14:30 05/26/18 14:45 Temperature Pulse Rate 109 H 118 H 113 H Respiratory Rate 24 Blood Pressure Pulse Oximetry 94 L 95 95 05/26/18 15:00 05/26/18 15:15 05/26/18 15:30 Temperature Pulse Rate 117 H 94 H 95 H Respiratory Rate 25 H 23 Blood Pressure Pulse Oximetry 96 94 L 95 05/26/18 15:45 05/26/18 16:00 05/26/18 16:07 Temperature 99.8 F H Pulse Rate 95 H 96 H Respiratory Rate 23 25 H Blood Pressure Pulse Oximetry 95 95 95 05/26/18 16:15 05/26/18 16:30 05/26/18 16:45 Temperature Pulse Rate 101 H 104 H 105 H Respiratory Rate 25 H 25 H 23 Blood Pressure Pulse Oximetry 95 95 95 05/26/18 17:00 05/26/18 17:14 05/26/18 17:15 Temperature Pulse Rate 110 H 85 107 H Respiratory Rate 25 H 18 21 Blood Pressure Pulse Oximetry 95 95 05/26/18 17:30 05/26/18 17:45 05/26/18 18:00 Temperature Pulse Rate 109 H 109 H 88 Respiratory Rate 18 18 19 Blood Pressure Pulse Oximetry 96 96 95 05/26/18 18:15 05/26/18 18:30 Temperature Pulse Rate 84 91 H Respiratory Rate 21 18 Blood Pressure Pulse Oximetry 95 96 Intake & Output 05/26/18 05/26/18 05/27/18 06:59 18:59 06:59 Intake Total 1678 / 1678 847 / 847 Output Total 2790 / 2790 2950 / 2950 Balance -1112 / -1112 -2103 / -2103 Weight 88.1 kg Intake: IV 750 / 750 350 / 350 Cleviprex Inj 25 mg In 50 ml @ 150 / 150 1 MG/HR 2 mls/hr IV.CONT TITRATE PRN Rx#:[id number] Protonix Inj 80 MG In NS Inj 100 / 100 100 / 100 100 ML @ 10 mls/hr IV.CONT Q10H AKIN Rx#:[id number] Diprivan 1000 mg/100 ml Inj 1, 200 / 200 000 mg In 100 ml @ 5 MCG/KG/MIN 2.922 mls/hr IV.CONT TITRATE PRN Rx#:[id number] Flexbumin 25% Inj 100 ML @ 60 100 / 100 100 / 100 mls/hr IV.SIG Q8H AKIN Rx#: [id number] KCl 40 mEq Premix Inj 40 meq In 100 / 100 100 ml @ 25 mls/hr IV.SIG Q2H PRN Rx#:[id number] fentaNYL 10 mcg/mL Premix Drip 250 / 250 2,500 mcg In 250 ml @ 50 MCG/HR 5 mls/hr IV.SIG TITRATE PRN Rx #:[id number] Tube Feeding 868 / 868 347 / 347 Water Bolus Amount 60 / 60 150 / 150 Output: Urine Amount (Catheter) 2150 / 2150 2250 / 2250 Indwelling Urethral Catheter 2150 / 2150 2250 / 2250 Gastric Drainage 450 / 450 600 / 600 Left Nare Nasogastric Tube 450 / 450 Right Nare Nasogastric Tube 600 / 600 Wound Drainage 190 / 190 100 / 100 # 2 Left Abdomen 190 / 190 100 / 100 Other: Date of Last Bowel Movement 05/23/18 05/26/18 # Bowel Movements 5 Result Diagrams: 05/26/18 11:51 05/26/18 03:12 Laboratory Results: Laboratory Results - last 24 hr 05/26/18 05/26/18 05/26/18 00:52 03:12 03:12 WBC 5.4 RBC 2.84 L Hgb 8.4 L Hct 25.3 L MCV 88.9 MCH 29.5 MCHC 33.2 RDW 15.9 Plt Count 91 L MPV 9.3 Fibrinogen Sodium 151 H Potassium 3.7 Chloride 116 H Carbon Dioxide 29.4 Anion Gap 6 BUN 36 H Creatinine 0.80 Estimated GFR 69 L POC Glucose 121 H Random Glucose 118 H Calcium 8.0 L Phosphorus 2.7 Magnesium 2.3 Total Bilirubin 0.8 AST 9 L ALT 12 Alkaline Phosphatase 40 L Total Protein 5.8 L D Albumin 3.3 L D 05/26/18 05/26/18 03:12 11:51 WBC 10.8 D RBC 3.37 L Hgb 10.1 L Hct 30.4 L MCV 90.2 MCH 29.9 MCHC 33.2 RDW 16.5 Plt Count 116 L MPV 8.8 Fibrinogen 443 H Sodium Potassium Chloride Carbon Dioxide Anion Gap BUN Creatinine Estimated GFR POC Glucose Random Glucose Calcium Phosphorus Magnesium Total Bilirubin AST ALT Alkaline Phosphatase Total Protein Albumin Medications: Active Medications Generic Name Dose Route Start Last Admin Trade Name Freq PRN Reason Stop Dose Admin Hydrocodone Bitart/Acetaminophen 1 tab 05/19/18 10:01 05/19/18 13:15 [place] 5/325 PO 1 tab Q6H PRN Administration Pain 2-5 Hydrocodone Bitart/Acetaminophen 1 tab 05/19/18 10:01 05/19/18 20:10 [place] 10/325 PO 1 tab Q6H PRN Administration Pain 6-10 Albuterol 1 ampul 05/23/18 04:00 05/26/18 17:13 Duoneb Neb (Akin) NEB 1 ampul Q4HR NEB AKIN Administration Amlodipine Besylate 5 mg 05/26/18 10:00 05/26/18 11:11 Norvasc J-TUBE 5 mg DAILY AKIN Administration Artificial Tears 1 applicatio 05/22/18 21:00 05/26/18 09:06 Lacrilube Opth Oint EACH EYE 1 applicatio BID AKIN Administration Clonidine HCl 0.1 mg 05/26/18 11:24 05/26/18 15:04 Catapres PO 0.1 mg Q6H PRN Administration SBP>160, DBP>90 Fentanyl Citrate 100 mcg 05/23/18 10:59 05/23/18 11:12 Fentanyl Inj IV.PUSH 100 mcg Q1H PRN Administration Any pain Furosemide 20 mg 05/25/18 10:00 05/26/18 17:53 Lasix Inj IV.PUSH 20 mg Q8H AKIN Administration Heparin Sodium (Porcine) 0 unit 05/21/18 09:00 05/26/18 09:05 Heparin Central Flush IV.FLUSH 400 unit DAILY AKIN Administration Hydralazine HCl 10 mg 05/23/18 00:24 05/26/18 16:43 Apresoline Inj IV.PUSH 10 mg Q1H PRN Administration Sbp>165, Dbp>90 Hydromorphone HCl 2 mg 05/19/18 21:41 05/26/18 02:26 Dilaudid Pf Inj IV.PUSH 2 mg Q4H PRN Administration PAIN SCALE 6 -10 Pantoprazole Sodium 80 mg/ 100 mls @ 10 mls/hr 05/17/18 09:00 05/26/18 15:38 Sodium Chloride IV.CONT 10 mls/hr Q10H AKIN Administration Sodium Chloride 500 mls @ 30 mls/hr 05/18/18 07:00 05/18/18 07:00 Ns Inj IV.SIG Not Given .Q10H AKIN Fentanyl 2,500 mcg in 250 mls @ 5 mls/hr 05/20/18 20:00 05/26/18 08:00 Fentanyl 10 Mcg/Ml Premix Drip IV.SIG 50 mcg/hr TITRATE PRN 5 mls/hr Per Protocol Titration Protocol 50 MCG/HR Potassium Chloride 40 meq in 100 mls @ 25 mls/hr 05/22/18 22:43 05/25/18 19: 06 Kcl 40 Meq Premix Inj IV.SIG 25 mls/hr Q2H PRN Administration For Potassium 2.8 - 3.2 mEq/L Potassium Chloride 40 meq in 100 mls @ 25 mls/hr 05/22/18 22:43 05/23/18 03: 06 Kcl 40 Meq Premix Inj IV.SIG Infused UNSCH PRN Infusion For Potassium 3.3 - 3.5 mEq/L Potassium Phosphate 30 mmol/ 260 mls @ 42 mls/hr 05/22/18 22:43 05/23/18 12: 57 Sodium Chloride IV.SIG Infused UNSCH PRN Infusion SEE LABEL COMMENTS Propofol 1,000 mg in 100 mls @ 2.922 mls/hr 05/23/18 11:00 05/26/18 10:35 Diprivan 1000 Mg/100 Ml Inj IV.CONT 0 mcg/kg/min TITRATE PRN 0 mls/hr Per Protocol Titration Protocol 5 MCG/KG/MIN Albumin Human 100 mls @ 60 mls/hr 05/24/18 10:00 05/26/18 17:53 Flexbumin 25% Inj IV.SIG 05/26/18 23:59 60 mls/hr Q8H AKIN Administration Clevidipine 25 mg in 50 mls @ 2 mls/hr 05/26/18 11:23 05/26/18 18:29 Cleviprex Inj IV.CONT 12 mg/hr TITRATE PRN 24 mls/hr Per protocol Titration Protocol 1 MG/HR Labetalol HCl 20 mg 05/26/18 07:44 05/26/18 17:54 Trandate Inj IV.PUSH 20 mg Q2H PRN Administration KEEP SBP<160 Lidocaine HCl 2 patch 05/19/18 09:30 05/26/18 09:03 Lidoderm 5% Patch.12 Hr T-DERMAL 2 patch DAILY AKIN Administration Ondansetron HCl 4 mg 05/17/18 06:10 05/26/18 12:20 Zofran Inj IV.PUSH 4 mg Q6H PRN Administration NAUSEA OR VOMITING Patch Removal 1 each 05/19/18 21:00 05/26/18 09:04 Remove Old Patch T-DERMAL 1 each BID AKIN Administration Potassium Bicarb/Potassium Chloride 25 meq 05/26/18 21:00 05/26/18 09:00 K-Lyte Cl Eff NG/OG 25 meq BID AKIN Administration Prochlorperazine Edisylate 10 mg 05/17/18 09:06 05/19/18 00:08 Compazine Inj IV.PUSH 10 mg Q6H PRN Administration NAUSEA Senna/Docusate Sodium 1 tab 05/17/18 09:00 05/26/18 09:04 Jessie-Colace PO 1 tab BID AKIN Administration Sodium Chloride 0 ml 05/21/18 09:00 05/26/18 09:03 Ns Flush IV.FLUSH 10 ml DAILY AKIN Administration Sodium Chloride 0 ml 05/20/18 16:43 05/26/18 01:39 Ns Flush IV.FLUSH 2 ml PRN PRN Administration FLUSH AFTER USING IV ACCESS Objective Remarks: GENERAL: remains ill, intubated. SKIN: Warm and dry. HEAD: Normocephalic. EYES: No scleral icterus. No injection or drainage. NECK: Supple, trachea midline. No JVD or lymphadenopathy. LYMPHATIC: No adenopathy. CARDIOVASCULAR: Regular rate and rhythm without murmurs. RESPIRATORY: decreased at bases. . GASTROINTESTINAL: Abdomen distended. EXTREMITIES: +2 edema. MUSCULOSKELETAL: poor muscle tone. NEUROLOGICAL: minimal movement. Assessment/Plan - Plan .. Platelets are now greater than 100,000. Will begin to taper the steroids as they produce increased risks of poor healing and infection and these will be major issues for her. Solu-Medrol will be decreased to 50 mg daily starting tomorrow
[2018-05-26] MEDS: MethylPREDNISolone Sod Succinate Inj 125 MG/2 ML Vial IV.PUSH SCH (20:57)
[2018-05-27] MEDS: Clevidipine Inj 25 MG/50 ML VIAL IV.CONT PRN ×11 (01:22→21:03)
[2018-05-27] MEDS: hydrALAZINE HCl Inj 20 MG/ML Vial IV.PUSH PRN (01:56)
[2018-05-27] MEDS: Pantoprazole Inj 80 MG in Sodium Chlor 0.9% Inj 100 ML IV.CONT SCH ×3 (01:57→19:58)
[2018-05-27] MEDS: Labetalol HCl Inj 100 MG/20 ML Vial IV.PUSH PRN (03:30)
[2018-05-27 04:20] LABS: Baso % (Auto) 0.2 % (0.0-2.0); Hematocrit 27.9 % (35.0-46.0); Hemoglobin 9.3 gm/dL (11.6-15.3); Lymph # (Auto) 0.1 th/mm3 (1.0-4.8); Lymph % (Auto) 0.9 % (9.0-44.0); Mean Corpuscular HGB Conc 33.2 % (32.0-36.0); Mean Corpuscular Hemoglobin 29.5 pg (27.0-34.0); Mean Corpuscular Volume 88.9 fL (80.0-100.0); Mean Platelet Volume 9.1 fL (7.0-11.0); Mono # (Auto) 0.5 th/mm3 (0.0-0.9); Neut # (Auto) 12.6 th/mm3 (1.8-7.7); Neut % (Auto) 94.9 % (16.0-70.0); Platelet Count 117 th/mm3 (150-450); Red Blood Count 3.14 mil/mm3 (4.00-5.30); White Blood Count 13.3 th/mm3 (4.0-11.0)
--- NOTE | 2018-05-27 04:28 | XR ---
EXAM DATE: 05/27/2018 4:22 AM EST AGE/SEX: 82 years / Female INDICATIONS: Respiratory failure. CLINICAL DATA: This is the patient's subsequent encounter. Patient reports that signs and symptoms h ave been present for 2 weeks and indicates a pain score of Nonresponsive. MEDICAL/SURGICAL HISTORY: . Hypertension. Sjogren syndrome. GI Bleed. . Cardiac stent. Right lower lobectomy. Thoracotomy. Central line placement. COMPARISON: [facility] – [place], CHEST 1V SINGLE AP, 05/25/2018. . FINDINGS: A single AP view of the chest demonstrates an endotracheal tube with the tip 3 cm from the wendi. Na sogastric tube and right-sided PICC line noted. Right-sided central line observed. Elevation of the r ight hemidiaphragm. Lungs are clear without infiltrate or effusion. Heart is normal in size. CONCLUSION: Clear lungs. Electronically signed by: Wang Scott MD 05/27/2018 4:26 AM EST
[2018-05-27 04:58] LABS: Alanine Aminotransferase 27 U/L (10-53); Albumin 3.7 g/dL (3.4-5.0); Alkaline Phosphatase 59 U/L (45-117); Anion Gap 10 meq/L (5-15); Aspartate Aminotransferase 21 U/L (15-37); Blood Urea Nitrogen 53 mg/dL (7-18); Calcium 8.4 mg/dL (8.5-10.1); Carbon Dioxide 29.4 meq/L (21.0-32.0); Chloride 114 meq/L (98-107); Glomerular Filtration Rate 54 mL/min (>89); Glucose,Random 167 mg/dL (74-106); Sodium 153 meq/L (136-145); Total Protein 6.2 g/dL (6.4-8.2)
[2018-05-27] MEDS: Potassium Chlor 40 mEq Premix 40 MEQ/100 ML PIGGYBACK IV.SIG PRN ×3 (05:31→20:32)
[2018-05-27] MEDS: fentaNYL 10 mcg/mL Premix Drip 2,500 MCG/250 ML BAG IV.SIG PRN (05:40)
[2018-05-27 07:05] LABS: ABG Base Excess 5.1 mmol/L (-2-2); ABG PCO2 40 mmHg (38-42); ABG PO2 73 mmHg (61-120)
[2018-05-27] MEDS: Heparin Central Flush 100 UNIT/ML 5 ML Vial IV.FLUSH SCH (08:46)
[2018-05-27] MEDS: Senna/Docusate Sodium 8.6/50 MG Tablet PO SCH ×2 (08:47→20:31)
[2018-05-27] MEDS: amLODIPine 5 MG Tablet J-TUBE SCH (08:47)
[2018-05-27] MEDS: Lidocaine 5% Patch T-DERMAL SCH (08:47)
[2018-05-27] MEDS: Potassium Chloride 25 MEQ Effervescent Tablet NG/OG SCH ×2 (08:47→20:31)
[2018-05-27] MEDS: Artificial Tears Opth Oint 3.5 GM Tube EACH EYE SCH ×2 (08:50→20:32)
[2018-05-27 09:36] LABS: Bilirubin,Urine Negative (Negative); Color,Urine Yellow (Yellw/Straw); Glucose,Urine (UA) Negative (Negative); Hyaline Casts,Urine 3 /lpf (0-3); Leukocyte Esterase,Urine Negative (Negative); Mucus,Urine Few /lpf (Occasional); Nitrite,Urine Negative (Negative); Specific Gravity,Urine 1.015 (1.002-1.035); Squamous Epithelial Cell,Urine <1 /hpf (0-5)
[2018-05-27 09:38] LABS: Bacteria,Urine Occasional /hpf; Clarity,Urine Clear (Clear)
--- NOTE | 2018-05-27 10:12 | P.PNCC ---
Subjective Subjective Remarks/Hospital Course: Hospital Course: 82yF with history of amyloidosis who presented with GI bleeding, hypotension, and severe anemia. originally admitted to the floor. hgb continued to downtrend despite transfusions. today taken for EGD which found blood in the stomach and clot, but no active bleeding. despite this, hgb still did not improve. taken for bleeding scan which was very +. discussed case with Dr. Garcia/Dr. Garland in IR. review of admission CT abd/pelvis demonstrates possible bleeding at duodenal bulb concerning for ulceration. Taken emergently to IR for embolization which appears to be successful. I evaluated the patient upon arrival to the ICU post-IR procedure. she is stable. complaining of hip pain. hgb has improved appropriately. she denies other complaints. she asked me not to look at her groin sites because "my hips hurt and I am tired." Recent evaluation by bedside RN is without hematoma, and this evaluation is deferred at patient's request (bedside RN to continue to monitor for signs of hematoma). remainder of ROS negative. Subjective: 05/20: doing well. complaining of moderate abdominal pain 5/10. receiving iv dilaudid currently. plan for EGD today. hgb dropped from 7.8 to 7.4, but slightly more tachycardic today, and I am worried about ongoing bleeding, although it does appear to be much slower clinically than yesterday. I discussed with GI [employer] that per my conversation with IR, the lesion may be in the 4th portion of the duodenum near the ligament and it may require further investigation that usual EGD, and possibly push enteroscopy. She stated she would convey to the proceduralist. Dr. Shin suggests type II NSTEMI secondary to anemia and I agree completely with his assessment. Given that she is going soon for repeat EGD with anesthesia, will give 1 additional unit of prbc as she clearly has demonstrated she needs higher hematocrit for oxygen carrying capacity to her known ischemic CAD lesions. 05/21: s/p exploratory laparotomy last night. open abdomen. hgb stable. became acutely hypotensive with increased wound vac output one time today- emergently gave 1 unit prbc and 1 unit plt empirically given sudden change in condition. significant 3rd space losses requiring additional resuscitative efforts. remains deeply sedated. off vasopressors. remains intubated. 05/22: more hemodynamically stable today. hgb stable. still high wound-vac output with 300-500mL/12h. uop remains adequate at 70-80mL/hr, but Cr slightly elevated over baseline. unable to start diuresis yet and clinically although developing anasarca in the tissues, appears intravascularly euvolemic but not overloaded. likely will not tolerate diuresis efforts without significant kidney injury at this present juncture. needs bringback and washout in OR, but will leave timing of this to general surgery. 05/23: Received from operating room in good condition. Abdominal wound closed following gastrojejunostomy. Joseph-Vieira drain in region of the duodenal stump, gastric anastomosis. Nasogastric tube to not be moved, good position in stomach, keep to low intermittent suction. Downstream jejunostomy tube for initiation of trickle feeds. Renal function this morning excellent, follow closely. Chemical ventilation for the next couple of days as we observe tension on the abdominal wall. Meticulously avoid fluid overload. At present she is hypertensive and tachycardic for which we will restart propofol and use boluses of fentanyl as needed. Baseline fentanyl drip is infusing. 05/24: Remains warm and well-perfused overnight. Urine output acceptable at 35- 40 cc/h. Tolerated spontaneous breathing trial well this morning, we keep on vent for another 24-48 hours. Generalized edema persists. 05/25: Intubated sedated heavily. Urine output excellent with Lasix overall 3 L. Currently remains grossly fluid overloaded approximately 20 kg up from admission weight. We will start scheduled Lasix 20 every 8 hours with potassium replacement to facilitate ventilator weaning. 05/26: Sedated, orally intubated on mech vent. Being diuresed. Elevated BP on lightening sedation noted. 05/27: Sedated, orally intubated on mechanical ventilation. Being diuresed. Failed CPAP trial earlier. On Cleviprex for hypertension Objective Vital Signs / I&O: Vital Signs 05/26/18 10:15 05/26/18 10:30 05/26/18 10:45 Temperature Pulse Rate 104 H 102 H 86 Respiratory Rate Blood Pressure Pulse Oximetry 94 L 93 L 92 L 05/26/18 11:00 05/26/18 11:15 05/26/18 11:30 Temperature Pulse Rate 98 H 105 H 103 H Respiratory Rate 16 Blood Pressure Pulse Oximetry 94 L 95 96 05/26/18 11:45 05/26/18 12:00 05/26/18 12:15 Temperature 98.8 F Pulse Rate 108 H 109 H 123 H Respiratory Rate 18 Blood Pressure Pulse Oximetry 94 L 95 94 L 05/26/18 12:30 05/26/18 12:45 05/26/18 13:00 Temperature Pulse Rate 111 H 108 H 106 H Respiratory Rate Blood Pressure Pulse Oximetry 96 95 95 05/26/18 13:01 05/26/18 13:02 05/26/18 13:15 Temperature Pulse Rate 106 H 106 H Respiratory Rate 22 21 Blood Pressure Pulse Oximetry 94 L 95 05/26/18 13:30 05/26/18 13:45 05/26/18 14:00 Temperature Pulse Rate 119 H 109 H 115 H Respiratory Rate 26 H 25 H 25 H Blood Pressure Pulse Oximetry 95 95 94 L 05/26/18 14:15 05/26/18 14:30 05/26/18 14:45 Temperature Pulse Rate 109 H 118 H 113 H Respiratory Rate 24 Blood Pressure Pulse Oximetry 94 L 95 95 05/26/18 15:00 05/26/18 15:15 05/26/18 15:30 Temperature Pulse Rate 117 H 94 H 95 H Respiratory Rate 25 H 23 Blood Pressure Pulse Oximetry 96 94 L 95 05/26/18 15:45 05/26/18 16:00 05/26/18 16:07 Temperature 99.8 F H Pulse Rate 95 H 96 H Respiratory Rate 23 25 H Blood Pressure Pulse Oximetry 95 95 95 05/26/18 16:15 05/26/18 16:30 05/26/18 16:45 Temperature Pulse Rate 101 H 104 H 105 H Respiratory Rate 25 H 25 H 23 Blood Pressure Pulse Oximetry 95 95 95 05/26/18 17:00 05/26/18 17:14 05/26/18 17:15 Temperature Pulse Rate 110 H 85 107 H Respiratory Rate 25 H 18 21 Blood Pressure Pulse Oximetry 95 95 05/26/18 17:30 05/26/18 17:45 05/26/18 18:00 Temperature Pulse Rate 109 H 109 H 88 Respiratory Rate 18 18 19 Blood Pressure Pulse Oximetry 96 96 95 05/26/18 18:15 05/26/18 18:30 05/26/18 18:45 Temperature Pulse Rate 84 91 H 91 H Respiratory Rate 21 18 Blood Pressure Pulse Oximetry 95 96 96 05/26/18 19:00 05/26/18 19:15 05/26/18 19:30 Temperature Pulse Rate 94 H 96 H 97 H Respiratory Rate 20 Blood Pressure Pulse Oximetry 96 97 97 05/26/18 19:45 05/26/18 20:00 05/26/18 20:15 Temperature 99.5 F Pulse Rate 102 H 86 89 Respiratory Rate 16 Blood Pressure Pulse Oximetry 98 97 97 05/26/18 20:30 05/26/18 20:45 05/26/18 20:49 Temperature Pulse Rate 92 H 96 H Respiratory Rate 17 Blood Pressure Pulse Oximetry 97 97 98 05/26/18 20:50 05/26/18 21:00 05/26/18 21:15 Temperature Pulse Rate 93 H 103 H 95 H Respiratory Rate 20 17 Blood Pressure Pulse Oximetry 96 97 05/26/18 21:30 05/26/18 21:45 05/26/18 22:00 Temperature Pulse Rate 100 H 96 H 99 H Respiratory Rate Blood Pressure Pulse Oximetry 96 96 97 05/26/18 22:15 05/26/18 22:30 05/26/18 22:45 Temperature Pulse Rate 100 H 99 H 99 H Respiratory Rate Blood Pressure Pulse Oximetry 97 96 96 05/26/18 23:00 05/26/18 23:15 05/26/18 23:30 Temperature Pulse Rate 102 H 98 H 103 H Respiratory Rate 18 Blood Pressure Pulse Oximetry 96 96 96 05/26/18 23:31 05/26/18 23:45 05/27/18 00:00 Temperature 100.0 F H Pulse Rate 84 85 Respiratory Rate 18 16 Blood Pressure Pulse Oximetry 96 95 94 L 05/27/18 00:15 05/27/18 00:30 05/27/18 00:45 Temperature Pulse Rate 92 H 92 H 94 H Respiratory Rate Blood Pressure Pulse Oximetry 95 95 95 05/27/18 01:00 05/27/18 01:15 05/27/18 01:30 Temperature Pulse Rate 97 H 100 H 101 H Respiratory Rate 22 Blood Pressure Pulse Oximetry 96 96 95 05/27/18 01:45 05/27/18 02:00 05/27/18 02:15 Temperature Pulse Rate 100 H 98 H 102 H Respiratory Rate 23 Blood Pressure Pulse Oximetry 95 95 96 05/27/18 02:30 05/27/18 02:45 05/27/18 03:00 Temperature Pulse Rate 102 H 100 H 104 H Respiratory Rate 17 Blood Pressure Pulse Oximetry 96 94 L 96 05/27/18 03:15 05/27/18 03:30 05/27/18 03:45 Temperature Pulse Rate 101 H 107 H 87 Respiratory Rate Blood Pressure Pulse Oximetry 96 97 95 05/27/18 03:55 05/27/18 03:57 05/27/18 04:00 Temperature 98.5 F Pulse Rate 87 90 Respiratory Rate 19 18 Blood Pressure Pulse Oximetry 93 L 94 L 05/27/18 04:04 05/27/18 04:15 05/27/18 04:30 Temperature Pulse Rate 90 92 H 97 H Respiratory Rate 18 Blood Pressure 121/58 L 123/59 L 125/55 L Pulse Oximetry 94 L 95 05/27/18 04:45 05/27/18 05:00 05/27/18 05:15 Temperature Pulse Rate 101 H 101 H 101 H Respiratory Rate 21 Blood Pressure 134/61 131/56 L 129/60 Pulse Oximetry 96 96 95 05/27/18 05:30 05/27/18 05:45 05/27/18 06:00 Temperature Pulse Rate 103 H 101 H 102 H Respiratory Rate 23 Blood Pressure 131/60 131/60 125/60 Pulse Oximetry 94 L 95 95 05/27/18 06:15 05/27/18 06:30 05/27/18 06:45 Temperature Pulse Rate 103 H 106 H 110 H Respiratory Rate Blood Pressure 130/56 L 133/60 138/64 Pulse Oximetry 94 L 94 L 94 L 05/27/18 07:00 05/27/18 07:15 05/27/18 07:30 Temperature Pulse Rate 120 H 103 H 107 H Respiratory Rate Blood Pressure 147/70 H 137/58 L 142/65 H Pulse Oximetry 98 95 94 L 05/27/18 07:35 05/27/18 07:45 05/27/18 08:00 Temperature 99.3 F Pulse Rate 104 H 112 H Respiratory Rate Blood Pressure 133/62 141/63 H Pulse Oximetry 95 90 L 95 05/27/18 08:15 05/27/18 08:30 05/27/18 08:45 Temperature Pulse Rate 104 H 105 H 106 H Respiratory Rate Blood Pressure 138/63 133/63 137/59 L Pulse Oximetry 93 L 91 L 95 05/27/18 09:00 05/27/18 09:15 05/27/18 09:20 Temperature Pulse Rate 106 H 121 H 121 H Respiratory Rate Blood Pressure 140/67 161/70 H 153/71 H Pulse Oximetry 94 L 94 L 95 05/27/18 09:30 05/27/18 09:45 Temperature Pulse Rate 120 H 118 H Respiratory Rate Blood Pressure 148/67 H 145/64 H Pulse Oximetry 94 L 95 Intake & Output 05/26/18 05/27/18 05/27/18 18:59 06:59 18:59 Intake Total 847 / 847 1490 / 1490 300 / 300 Output Total 2950 / 2950 2475 / 2475 Balance -2103 / -2103 -985 / -985 300 / 300 Weight 85.6 kg Intake: IV 350 / 350 800 / 800 300 / 300 Cleviprex Inj 25 mg In 50 ml @ 150 / 150 250 / 250 100 / 100 1 MG/HR 2 mls/hr IV.CONT TITRATE PRN Rx#:[id number] Protonix Inj 80 MG In NS Inj 100 / 100 100 / 100 100 / 100 100 ML @ 10 mls/hr IV.CONT Q10H VALERY Rx#:[id number] Flexbumin 25% Inj 100 ML @ 60 100 / 100 100 / 100 mls/hr IV.SIG Q8H VALERY Rx#: [id number] KCl 40 mEq Premix Inj 40 meq In 100 / 100 100 / 100 100 ml @ 25 mls/hr IV.SIG Q2H PRN Rx#:[id number] fentaNYL 10 mcg/mL Premix Drip 250 / 250 2,500 mcg In 250 ml @ 50 MCG/HR 5 mls/hr IV.SIG TITRATE PRN Rx #:[id number] Tube Feeding 347 / 347 570 / 570 Water Bolus Amount 150 / 150 120 / 120 Output: Urine/Stool Mix 550 / 550 Urine Amount (Catheter) 2250 / 2250 1575 / 1575 Indwelling Urethral Catheter 2250 / 2250 1575 / 1575 Gastric Drainage 600 / 600 250 / 250 Right Nare Nasogastric Tube 600 / 600 250 / 250 Wound Drainage 100 / 100 100 / 100 # 2 Left Abdomen 100 / 100 100 / 100 Other: Date of Last Bowel Movement 05/26/18 05/27/18 # Bowel Movements 5 Result Diagrams: 05/27/18 03:50 05/27/18 03:50 Objective Remarks: GENERAL: Well sedated patient, mechanically ventilated, calm. HEENT: Normocephalic. Atraumatic. GEOVANI. Orotracheal intubation. CHEST: Clear breath sounds bilaterally, equal chest rise. Air entry diminished at the bases. No adventitious sounds. CARDIOVASCULAR: Normal S1-S2. Regular normal rate, regular rhythm. No JVD. ABDOMEN: Fascia closed, postsurgical wound intact, abdominal binder in place. Soft, nondistended. Few bowel sounds heard. MUSCULOSKELETAL: Bilateral foot pulses 2+. bilateral foot and ankle edema. Warm and well-perfused fingers and toes. NEUROLOGICAL: RASS -2, withdraws 4 limbs, localizes, breathing spontaneously over the ventilator. Opens eyes to loud voice. Assessment and Plan - Assessment and Plan Plan: Assessment: 82yF with amyloidosis and active GI bleed. s/p emergent IA embolization 05/19. s/p EGD 05/19 and again 05/20 with ischemia present. s/p emergent exploratory laparotomy with duodenal and jejunal resection, initially left in discontinuity with open abdomen, and now reconstructed with abdominal wall closure. Remains critically ill. Scheduled Lasix started for aggressive diuresis. Grossly fluid up approximately 20 kg Active upper GI bleed Acute hypoxic and hypercarbic respiratory failure s/p emergent exploratory laparotomy with duodenal and jejunal resection, initially left in discontinuity with open abdomen 05/20 Now reconstructed with abdominal wall closure. severe acute anemia secondary to blood loss requiring transfusion- persistent duodenal ulcer Type II NSTEMI secondary to demand ischemia from severe anemia s/p EGD 05/19, 05/20 s/p emergent IR embolization 05/19 severe acute thrombocytopenia acute protein calorie malnutrition- moderate to severe Fluid overload Plan: - [facility] ventilator mode. Daily spontaneous breathing trials. - propofol, fentanyl for goal RASS -2 to - 3. Discontinue Versed - Continue IV Lasix 20 mg every 8 hours with potassium replacement - Grossly fluid positive approximately 20 kg. Need to get weight closer to admission weight prior to extubation - Off IV fluids - Labetalol prn, Cardene gtt to keep SBP less than 160mm Hg, Norvasc 5mg via J tube daily started 05/26 - Serial hemoglobin, transfuse to keep hgb > 7 - serially check platelets, transfuse to keep plt > 50k - Advance tube feeds per general surgery, through jejunostomy - Daily am cbc, bmp, mg, phos - ICU electrolyte replacement protocol - SCDs. Start subcu heparin when cleared by general surgery. Overall impression: This patient remains critically ill with fluctuating renal function, fluid overload and compromised respiratory reserve due to recent resuscitation volume and generalized edema, complicated by abdominal wall closure now. Critical care 35 mins
--- NOTE | 2018-05-27 10:12 | P.PNGS ---
Subjective Interval history: Intubated/Sedated Physical Exam Vital signs: Vital Signs 05/26/18 10:15 05/26/18 10:30 05/26/18 10:45 Temperature Pulse Rate 104 H 102 H 86 Respiratory Rate Blood Pressure Pulse Oximetry 94 L 93 L 92 L 05/26/18 11:00 05/26/18 11:15 05/26/18 11:30 Temperature Pulse Rate 98 H 105 H 103 H Respiratory Rate 16 Blood Pressure Pulse Oximetry 94 L 95 96 05/26/18 11:45 05/26/18 12:00 05/26/18 12:15 Temperature 98.8 F Pulse Rate 108 H 109 H 123 H Respiratory Rate 18 Blood Pressure Pulse Oximetry 94 L 95 94 L 05/26/18 12:30 05/26/18 12:45 05/26/18 13:00 Temperature Pulse Rate 111 H 108 H 106 H Respiratory Rate Blood Pressure Pulse Oximetry 96 95 95 05/26/18 13:01 05/26/18 13:02 05/26/18 13:15 Temperature Pulse Rate 106 H 106 H Respiratory Rate 22 21 Blood Pressure Pulse Oximetry 94 L 95 05/26/18 13:30 05/26/18 13:45 05/26/18 14:00 Temperature Pulse Rate 119 H 109 H 115 H Respiratory Rate 26 H 25 H 25 H Blood Pressure Pulse Oximetry 95 95 94 L 05/26/18 14:15 05/26/18 14:30 05/26/18 14:45 Temperature Pulse Rate 109 H 118 H 113 H Respiratory Rate 24 Blood Pressure Pulse Oximetry 94 L 95 95 05/26/18 15:00 05/26/18 15:15 05/26/18 15:30 Temperature Pulse Rate 117 H 94 H 95 H Respiratory Rate 25 H 23 Blood Pressure Pulse Oximetry 96 94 L 95 05/26/18 15:45 05/26/18 16:00 05/26/18 16:07 Temperature 99.8 F H Pulse Rate 95 H 96 H Respiratory Rate 23 25 H Blood Pressure Pulse Oximetry 95 95 95 05/26/18 16:15 05/26/18 16:30 05/26/18 16:45 Temperature Pulse Rate 101 H 104 H 105 H Respiratory Rate 25 H 25 H 23 Blood Pressure Pulse Oximetry 95 95 95 05/26/18 17:00 05/26/18 17:14 05/26/18 17:15 Temperature Pulse Rate 110 H 85 107 H Respiratory Rate 25 H 18 21 Blood Pressure Pulse Oximetry 95 95 05/26/18 17:30 05/26/18 17:45 05/26/18 18:00 Temperature Pulse Rate 109 H 109 H 88 Respiratory Rate 18 18 19 Blood Pressure Pulse Oximetry 96 96 95 05/26/18 18:15 05/26/18 18:30 05/26/18 18:45 Temperature Pulse Rate 84 91 H 91 H Respiratory Rate 21 18 Blood Pressure Pulse Oximetry 95 96 96 05/26/18 19:00 05/26/18 19:15 05/26/18 19:30 Temperature Pulse Rate 94 H 96 H 97 H Respiratory Rate 20 Blood Pressure Pulse Oximetry 96 97 97 05/26/18 19:45 05/26/18 20:00 05/26/18 20:15 Temperature 99.5 F Pulse Rate 102 H 86 89 Respiratory Rate 16 Blood Pressure Pulse Oximetry 98 97 97 05/26/18 20:30 05/26/18 20:45 05/26/18 20:49 Temperature Pulse Rate 92 H 96 H Respiratory Rate 17 Blood Pressure Pulse Oximetry 97 97 98 05/26/18 20:50 05/26/18 21:00 05/26/18 21:15 Temperature Pulse Rate 93 H 103 H 95 H Respiratory Rate 20 17 Blood Pressure Pulse Oximetry 96 97 05/26/18 21:30 05/26/18 21:45 05/26/18 22:00 Temperature Pulse Rate 100 H 96 H 99 H Respiratory Rate Blood Pressure Pulse Oximetry 96 96 97 05/26/18 22:15 05/26/18 22:30 05/26/18 22:45 Temperature Pulse Rate 100 H 99 H 99 H Respiratory Rate Blood Pressure Pulse Oximetry 97 96 96 05/26/18 23:00 05/26/18 23:15 05/26/18 23:30 Temperature Pulse Rate 102 H 98 H 103 H Respiratory Rate 18 Blood Pressure Pulse Oximetry 96 96 96 05/26/18 23:31 05/26/18 23:45 05/27/18 00:00 Temperature 100.0 F H Pulse Rate 84 85 Respiratory Rate 18 16 Blood Pressure Pulse Oximetry 96 95 94 L 05/27/18 00:15 05/27/18 00:30 05/27/18 00:45 Temperature Pulse Rate 92 H 92 H 94 H Respiratory Rate Blood Pressure Pulse Oximetry 95 95 95 05/27/18 01:00 05/27/18 01:15 05/27/18 01:30 Temperature Pulse Rate 97 H 100 H 101 H Respiratory Rate 22 Blood Pressure Pulse Oximetry 96 96 95 05/27/18 01:45 05/27/18 02:00 05/27/18 02:15 Temperature Pulse Rate 100 H 98 H 102 H Respiratory Rate 23 Blood Pressure Pulse Oximetry 95 95 96 05/27/18 02:30 05/27/18 02:45 05/27/18 03:00 Temperature Pulse Rate 102 H 100 H 104 H Respiratory Rate 17 Blood Pressure Pulse Oximetry 96 94 L 96 05/27/18 03:15 05/27/18 03:30 05/27/18 03:45 Temperature Pulse Rate 101 H 107 H 87 Respiratory Rate Blood Pressure Pulse Oximetry 96 97 95 05/27/18 03:55 05/27/18 03:57 05/27/18 04:00 Temperature 98.5 F Pulse Rate 87 90 Respiratory Rate 19 18 Blood Pressure Pulse Oximetry 93 L 94 L 05/27/18 04:04 05/27/18 04:15 05/27/18 04:30 Temperature Pulse Rate 90 92 H 97 H Respiratory Rate 18 Blood Pressure 121/58 L 123/59 L 125/55 L Pulse Oximetry 94 L 95 05/27/18 04:45 05/27/18 05:00 05/27/18 05:15 Temperature Pulse Rate 101 H 101 H 101 H Respiratory Rate 21 Blood Pressure 134/61 131/56 L 129/60 Pulse Oximetry 96 96 95 05/27/18 05:30 05/27/18 05:45 05/27/18 06:00 Temperature Pulse Rate 103 H 101 H 102 H Respiratory Rate 23 Blood Pressure 131/60 131/60 125/60 Pulse Oximetry 94 L 95 95 05/27/18 06:15 05/27/18 06:30 05/27/18 06:45 Temperature Pulse Rate 103 H 106 H 110 H Respiratory Rate Blood Pressure 130/56 L 133/60 138/64 Pulse Oximetry 94 L 94 L 94 L 05/27/18 07:00 05/27/18 07:15 05/27/18 07:30 Temperature Pulse Rate 120 H 103 H 107 H Respiratory Rate Blood Pressure 147/70 H 137/58 L 142/65 H Pulse Oximetry 98 95 94 L 1205/18 07:35 05/27/18 07:45 05/27/18 08:00 Temperature 99.3 F Pulse Rate 104 H 112 H Respiratory Rate Blood Pressure 133/62 141/63 H Pulse Oximetry 95 90 L 95 05/27/18 08:15 05/27/18 08:30 05/27/18 08:45 Temperature Pulse Rate 104 H 105 H 106 H Respiratory Rate Blood Pressure 138/63 133/63 137/59 L Pulse Oximetry 93 L 91 L 95 05/27/18 09:00 05/27/18 09:15 05/27/18 09:20 Temperature Pulse Rate 106 H 121 H 121 H Respiratory Rate Blood Pressure 140/67 161/70 H 153/71 H Pulse Oximetry 94 L 94 L 95 05/27/18 09:30 05/27/18 09:45 Temperature Pulse Rate 120 H 118 H Respiratory Rate Blood Pressure 148/67 H 145/64 H Pulse Oximetry 94 L 95 Intake & Output 05/26/18 05/27/18 05/27/18 18:59 06:59 18:59 Intake Total 847 / 847 1490 / 1490 300 / 300 Output Total 2950 / 2950 2475 / 2475 Balance -2103 / -2103 -985 / -985 300 / 300 Weight 85.6 kg Intake: IV 350 / 350 800 / 800 300 / 300 Cleviprex Inj 25 mg In 50 ml @ 150 / 150 250 / 250 100 / 100 1 MG/HR 2 mls/hr IV.CONT TITRATE PRN Rx#:[id number] Protonix Inj 80 MG In NS Inj 100 / 100 100 / 100 100 / 100 100 ML @ 10 mls/hr IV.CONT Q10H VALERY Rx#:[id number] Flexbumin 25% Inj 100 ML @ 60 100 / 100 100 / 100 mls/hr IV.SIG Q8H VALERY Rx#: [id number] KCl 40 mEq Premix Inj 40 meq In 100 / 100 100 / 100 100 ml @ 25 mls/hr IV.SIG Q2H PRN Rx#:[id number] fentaNYL 10 mcg/mL Premix Drip 250 / 250 2,500 mcg In 250 ml @ 50 MCG/HR 5 mls/hr IV.SIG TITRATE PRN Rx #:[id number] Tube Feeding 347 / 347 570 / 570 Water Bolus Amount 150 / 150 120 / 120 Output: Urine/Stool Mix 550 / 550 Urine Amount (Catheter) 2250 / 2250 1575 / 1575 Indwelling Urethral Catheter 2250 / 2250 1575 / 1575 Gastric Drainage 600 / 600 250 / 250 Right Nare Nasogastric Tube 600 / 600 250 / 250 Wound Drainage 100 / 100 100 / 100 # 2 Left Abdomen 100 / 100 100 / 100 Other: Date of Last Bowel Movement 05/26/18 05/27/18 # Bowel Movements 5 Narrative: Intubated/Sedated Abd: soft; IRIS in place with good seal; DAKOTA with serosanguineous drainage; J tube with feedings Generalized edema improved Flexiseal with maroon liquid stools - Urinary Catheter Management Indwelling Urethral Catheter Cath placed during this visit: yes Reason for continuing: Hourly intake/output Insertion date: 05/20/18 Insertion time: 19:55 Results - Labs 05/27/18 03:50 05/27/18 03:50 Laboratory Results - last 24 hr 05/26/18 05/27/18 05/27/18 11:51 03:50 03:50 WBC 10.8 D 13.3 H RBC 3.37 L 3.14 L Hgb 10.1 L 9.3 L Hct 30.4 L 27.9 L MCV 90.2 88.9 MCH 29.9 29.5 MCHC 33.2 33.2 RDW 16.5 16.0 Plt Count 116 L 117 L MPV 8.8 9.1 Neut % (Auto) 94.9 H Lymph % (Auto) 0.9 L [place] % (Auto) 4.0 Eos % (Auto) 0.0 Baso % (Auto) 0.2 Neut # (Auto) 12.6 H Lymph # (Auto) 0.1 L [place] # (Auto) 0.5 Eos # (Auto) 0.0 Baso # (Auto) 0.0 WBC Differential . Differential Comment Auto diff final Puncture Site Patient Temperature O2 Saturation ABG pH ABG pCO2 ABG pO2 ABG HCO3 ABG O2 Content ABG Base Excess ABG Methemoglobin [place] Test Hemoglobin Carboxyhemoglobin O2 Delivery Device Vent Setting Inspired O2 Critical Value Sodium 153 H Potassium 3.0 L Chloride 114 H Carbon Dioxide 29.4 Anion Gap 10 BUN 53 H Creatinine 0.99 Estimated GFR 54 L Random Glucose 167 H Calcium 8.4 L Magnesium Total Bilirubin 1.1 H AST 21 ALT 27 Alkaline Phosphatase 59 Total Protein 6.2 L Albumin 3.7 Urine Color Urine Clarity Urine pH Ur Specific [place] Urine Protein Urine Glucose (UA) Urine Ketones Urine Occult Blood Urine Nitrate Urine Bilirubin Urine Urobilinogen Ur Leukocyte Esterase Urine RBC Urine WBC Ur Squamous Epith Cells Urine Bacteria Hyaline Casts Urine Mucus Micro UA Comment Ur Microscopic Review Urine Culture Comments 05/27/18 05/27/18 05/27/18 03:50 06:55 09:13 WBC RBC Hgb Hct MCV MCH MCHC RDW Plt Count MPV Neut % (Auto) Lymph % (Auto) [place] % (Auto) Eos % (Auto) Baso % (Auto) Neut # (Auto) Lymph # (Auto) [place] # (Auto) Eos # (Auto) Baso # (Auto) WBC Differential Differential Comment Puncture Site Right radial Patient Temperature 98.6 O2 Saturation 93 ABG pH 7.47 H ABG pCO2 40 ABG pO2 73 ABG HCO3 29 H ABG O2 Content 12.4 ABG Base Excess 5.1 H ABG Methemoglobin 1.3 [place] Test Present Hemoglobin 9.4 L Carboxyhemoglobin 1.5 O2 Delivery Device Ventilator Vent Setting Prvc/ac Inspired O2 40 Critical Value No Sodium Potassium Chloride Carbon Dioxide Anion Gap BUN Creatinine Estimated GFR Random Glucose Calcium Magnesium 2.3 Total Bilirubin AST ALT Alkaline Phosphatase Total Protein Albumin Urine Color Yellow Urine Clarity Clear Urine pH 5.0 Ur Specific [place] 1.015 Urine Protein 30 H Urine Glucose (UA) Negative Urine Ketones Negative Urine Occult Blood Small H Urine Nitrate Negative Urine Bilirubin Negative Urine Urobilinogen Less than 2 Ur Leukocyte Esterase Negative Urine RBC 2 Urine WBC 3 Ur Squamous Epith Cells <1 Urine Bacteria Occasional H Hyaline Casts 3 Urine Mucus Few H Micro UA Comment Cath-culture ind Ur Microscopic Review Not Reportable Urine Culture Comments Cath-cult indicated - Imaging Imaging: ITS Impressions GI Bleed Scan Nuclear Medicine 05/19/18 00:00 CONCLUSION: 1. 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 Patient was emergently brought to the interventional radiology department from the nuclear medicine department for angiography and intervention. Mesenteric Arteriogram 05/19/18 14:37 CONCLUSION: 1. 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 2. 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 PICC Line Insertion 05/20/18 00:00 CONCLUSION: 1. Uncomplicated central venous Power PICC line placement. 2. The PICC line can be used immediately. Abdomen/Pelvis CT 05/20/18 18:16 CONCLUSION: 1. Nonspecific, nonobstructive bowel gas pattern which may represent a mild ileus or be related to the recent endoscopy and insufflation of air. There is no focal wall thickening or inflammatory change. There is no free air or fluid. 2. Nonobstructing left renal calculi. 3. Small effusions and mild consolidative opacity in both lung bases. Chest X-Ray 05/27/18 05:00 CONCLUSION: Clear lungs. Assessment and Plan - Assessment (1) GI bleed Code(s): K92.2 - Gastrointestinal hemorrhage, unspecified Status: Acute Plan: 82 year old female POD3 exploratory laparotomy, gastrojejunostomy, closure, j tube -Tolerating TF at goal of 55 cc/hr -Vent per CCM -Okay to start anticoagulation from GS standpoint ---discussed with LUDWIG Ceja -Wean sedation as tolerated - Plan I personally evaluated the patient in room 1309. She remains ventilated and somewhat sedated. I did ask her to squeeze my fingers and I believe she did so and responded appropriately squeezing my fingers with her left hand. Her eyes were partially opened and she moved her head around but could not get her to wiggle her toes in response to verbal request. Her nasogastric tube has primarily bilious fluid. Her breath sounds were clear and equal anteriorly bilaterally. Her abdomen remains somewhat distended yet soft. The iris dressing is intact with tiny spot of dried drainage on it. J-tube exit site is clean she is tolerating tube feeds now at 50 an hour. She does have a large amount of liquid dark brown stool in the Flexi-Seal bag. Her [place] drain is draining yellow serous drainage with occasional clot in it. Her extreme extremities remain mildly edematous. Her hemoglobin was 9.3 today. Her platelet count was 117. I do not believe she is demonstrating signs of any active bleeding at this time. 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 Slow ventilator weaning as the patient failed a CPAP trial yesterday. Continue diuresis. Continue to support low potassium. Plan iris dressing change on Friday. Continue current support. I discussed in detail the patient's status yesterday afternoon with the patient's daughter, Raciel Conley, by telephone.
--- NOTE | 2018-05-27 19:37 | P.PNONC ---
Subjective Interval history: In speaking with the nursing staff she was not able to tolerate CPAP. Stools continue to have a significant amount of what appears to be melena or maroon colored stool Objective Vital Signs/Intake & Output: Vital Signs 05/26/18 19:45 05/26/18 20:00 05/26/18 20:15 Temperature 99.5 F Pulse Rate 102 H 86 89 Respiratory Rate 16 Blood Pressure Pulse Oximetry 98 97 97 05/26/18 20:30 05/26/18 20:45 05/26/18 20:49 Temperature Pulse Rate 92 H 96 H Respiratory Rate 17 Blood Pressure Pulse Oximetry 97 97 98 05/26/18 20:50 05/26/18 21:00 05/26/18 21:15 Temperature Pulse Rate 93 H 103 H 95 H Respiratory Rate 20 17 Blood Pressure Pulse Oximetry 96 97 05/26/18 21:30 05/26/18 21:45 05/26/18 22:00 Temperature Pulse Rate 100 H 96 H 99 H Respiratory Rate Blood Pressure Pulse Oximetry 96 96 97 05/26/18 22:15 05/26/18 22:30 05/26/18 22:45 Temperature Pulse Rate 100 H 99 H 99 H Respiratory Rate Blood Pressure Pulse Oximetry 97 96 96 05/26/18 23:00 05/26/18 23:15 05/26/18 23:30 Temperature Pulse Rate 102 H 98 H 103 H Respiratory Rate 18 Blood Pressure Pulse Oximetry 96 96 96 05/26/18 23:31 05/26/18 23:45 05/27/18 00:00 Temperature 100.0 F H Pulse Rate 84 85 Respiratory Rate 18 16 Blood Pressure Pulse Oximetry 96 95 94 L 05/27/18 00:15 05/27/18 00:30 05/27/18 00:45 Temperature Pulse Rate 92 H 92 H 94 H Respiratory Rate Blood Pressure Pulse Oximetry 95 95 95 05/27/18 01:00 05/27/18 01:15 05/27/18 01:30 Temperature Pulse Rate 97 H 100 H 101 H Respiratory Rate 22 Blood Pressure Pulse Oximetry 96 96 95 05/27/18 01:45 05/27/18 02:00 05/27/18 02:15 Temperature Pulse Rate 100 H 98 H 102 H Respiratory Rate 23 Blood Pressure Pulse Oximetry 95 95 96 05/27/18 02:30 05/27/18 02:45 05/27/18 03:00 Temperature Pulse Rate 102 H 100 H 104 H Respiratory Rate 17 Blood Pressure Pulse Oximetry 96 94 L 96 05/27/18 03:15 05/27/18 03:30 05/27/18 03:45 Temperature Pulse Rate 101 H 107 H 87 Respiratory Rate Blood Pressure Pulse Oximetry 96 97 95 05/27/18 03:55 05/27/18 03:57 05/27/18 04:00 Temperature 98.5 F Pulse Rate 87 90 Respiratory Rate 19 18 Blood Pressure Pulse Oximetry 93 L 94 L 05/27/18 04:04 05/27/18 04:15 05/27/18 04:30 Temperature Pulse Rate 90 92 H 97 H Respiratory Rate 18 Blood Pressure 121/58 L 123/59 L 125/55 L Pulse Oximetry 94 L 95 05/27/18 04:45 05/27/18 05:00 05/27/18 05:15 Temperature Pulse Rate 101 H 101 H 101 H Respiratory Rate 21 Blood Pressure 134/61 131/56 L 129/60 Pulse Oximetry 96 96 95 05/27/18 05:30 05/27/18 05:45 05/27/18 06:00 Temperature Pulse Rate 103 H 101 H 102 H Respiratory Rate 23 Blood Pressure 131/60 131/60 125/60 Pulse Oximetry 94 L 95 95 05/27/18 06:15 05/27/18 06:30 05/27/18 06:45 Temperature Pulse Rate 103 H 106 H 110 H Respiratory Rate Blood Pressure 130/56 L 133/60 138/64 Pulse Oximetry 94 L 94 L 94 L 05/27/18 07:00 05/27/18 07:15 05/27/18 07:30 Temperature Pulse Rate 120 H 103 H 107 H Respiratory Rate Blood Pressure 147/70 H 137/58 L 142/65 H Pulse Oximetry 98 95 94 L 05/27/18 07:35 05/27/18 07:45 05/27/18 08:00 Temperature 99.3 F Pulse Rate 104 H 112 H Respiratory Rate Blood Pressure 133/62 141/63 H Pulse Oximetry 95 90 L 95 05/27/18 08:15 05/27/18 08:30 05/27/18 08:45 Temperature Pulse Rate 104 H 105 H 106 H Respiratory Rate Blood Pressure 138/63 133/63 137/59 L Pulse Oximetry 93 L 91 L 95 05/27/18 09:00 05/27/18 09:15 05/27/18 09:20 Temperature Pulse Rate 106 H 121 H 121 H Respiratory Rate Blood Pressure 140/67 161/70 H 153/71 H Pulse Oximetry 94 L 94 L 95 05/27/18 09:30 05/27/18 09:45 05/27/18 10:00 Temperature Pulse Rate 120 H 118 H 116 H Respiratory Rate Blood Pressure 148/67 H 145/64 H 144/67 H Pulse Oximetry 94 L 95 94 L 05/27/18 10:15 05/27/18 10:30 05/27/18 10:45 Temperature Pulse Rate 115 H 100 H 93 H Respiratory Rate Blood Pressure 146/65 H 117/58 L 114/58 L Pulse Oximetry 94 L 95 95 05/27/18 11:00 05/27/18 11:15 05/27/18 11:30 Temperature Pulse Rate 96 H 101 H 103 H Respiratory Rate Blood Pressure 121/56 L 127/61 132/57 L Pulse Oximetry 95 96 94 L 05/27/18 11:45 05/27/18 12:00 05/27/18 12:15 Temperature 99.0 F Pulse Rate 104 H 104 H 106 H Respiratory Rate Blood Pressure 129/61 130/63 129/60 Pulse Oximetry 95 94 L 95 05/27/18 12:30 05/27/18 12:44 05/27/18 12:45 Temperature Pulse Rate 105 H 109 H Respiratory Rate 14 Blood Pressure 133/62 128/61 Pulse Oximetry 95 94 L 95 05/27/18 13:00 05/27/18 13:15 05/27/18 13:30 Temperature Pulse Rate 107 H 109 H 110 H Respiratory Rate Blood Pressure 132/62 130/62 132/62 Pulse Oximetry 95 95 95 05/27/18 13:45 05/27/18 14:00 05/27/18 14:15 Temperature Pulse Rate 109 H 104 H 108 H Respiratory Rate 19 Blood Pressure 137/65 131/63 132/61 Pulse Oximetry 94 L 95 96 05/27/18 14:30 05/27/18 14:45 05/27/18 15:00 Temperature Pulse Rate 107 H 107 H 107 H Respiratory Rate 18 Blood Pressure 132/61 129/60 129/63 Pulse Oximetry 96 96 95 05/27/18 15:15 05/27/18 15:30 12/05/18 15:45 Temperature Pulse Rate 107 H 108 H 109 H Respiratory Rate Blood Pressure 129/58 L 131/62 131/63 Pulse Oximetry 96 95 95 05/27/18 16:00 05/27/18 16:15 05/27/18 16:30 Temperature 99.1 F Pulse Rate 107 H 110 H 112 H Respiratory Rate 18 Blood Pressure 130/62 125/59 L 122/57 L Pulse Oximetry 96 94 L 93 L 05/27/18 16:45 05/27/18 17:00 05/27/18 17:15 Temperature Pulse Rate 111 H 110 H 107 H Respiratory Rate 21 Blood Pressure 126/58 L 122/58 L 121/58 L Pulse Oximetry 94 L 93 L 91 L 05/27/18 17:30 05/27/18 17:36 05/27/18 17:45 Temperature Pulse Rate 116 H 108 H Respiratory Rate 23 Blood Pressure 122/56 L 116/58 L Pulse Oximetry 94 L 96 90 L 05/27/18 18:00 05/27/18 18:15 05/27/18 18:30 Temperature Pulse Rate 109 H 107 H 112 H Respiratory Rate 22 Blood Pressure 119/56 L 118/59 L 129/58 L Pulse Oximetry 95 97 98 Intake & Output 05/27/18 05/27/18 05/28/18 06:59 18:59 06:59 Intake Total 1490 / 1490 1258 / 1258 50 / 50 Output Total 2475 / 2475 1979 Balance -985 / -985 -722 / -722 50 / 50 Weight 85.6 kg Intake: IV 800 / 800 600 / 600 50 / 50 Cleviprex Inj 25 mg In 50 ml @ 250 / 250 300 / 300 50 / 50 1 MG/HR 2 mls/hr IV.CONT TITRATE PRN Rx#:[id number] Protonix Inj 80 MG In NS Inj 100 / 100 100 / 100 100 ML @ 10 mls/hr IV.CONT Q10H VALERY Rx#:[id number] Flexbumin 25% Inj 100 ML @ 60 100 / 100 mls/hr IV.SIG Q8H VALERY Rx#: [id number] KCl 40 mEq Premix Inj 40 meq In 100 / 100 200 / 200 100 ml @ 25 mls/hr IV.SIG Q2H PRN Rx#:[id number] fentaNYL 10 mcg/mL Premix Drip 250 / 250 2,500 mcg In 250 ml @ 50 MCG/HR 5 mls/hr IV.SIG TITRATE PRN Rx #:[id number] Tube Feeding 570 / 570 508 / 508 Tube Irrigant 150 / 150 Water Bolus Amount 120 / 120 Output: Stool 100 / 100 Urine/Stool Mix 550 / 550 Urine Amount (Catheter) 1575 / 1575 1350 / 1350 Indwelling Urethral Catheter 1575 / 1575 1350 / 1350 Gastric Drainage 250 / 250 450 / 450 Right Nare Nasogastric Tube 250 / 250 450 / 450 Wound Drainage 100 / 100 80 / 80 # 2 Left Abdomen 100 / 100 80 / 80 Other: Date of Last Bowel Movement 05/27/18 Result Diagrams: 05/27/18 03:50 05/27/18 16:30 Laboratory Results: Laboratory Results - last 24 hr 05/27/18 05/27/18 05/27/18 03:50 03:50 03:50 WBC 13.3 H RBC 3.14 L Hgb 9.3 L Hct 27.9 L MCV 88.9 MCH 29.5 MCHC 33.2 RDW 16.0 Plt Count 117 L MPV 9.1 Neut % (Auto) 94.9 H Lymph % (Auto) 0.9 L Barnes % (Auto) 4.0 Eos % (Auto) 0.0 Baso % (Auto) 0.2 Neut # (Auto) 12.6 H Lymph # (Auto) 0.1 L Barnes # (Auto) 0.5 Eos # (Auto) 0.0 Baso # (Auto) 0.0 WBC Differential . Differential Comment Auto diff final Puncture Site Patient Temperature O2 Saturation ABG pH ABG pCO2 ABG pO2 ABG HCO3 ABG O2 Content ABG Base Excess ABG Methemoglobin [place] Test Hemoglobin Carboxyhemoglobin O2 Delivery Device Vent Setting Inspired O2 Critical Value Sodium 153 H Potassium 3.0 L Chloride 114 H Carbon Dioxide 29.4 Anion Gap 10 BUN 53 H Creatinine 0.99 Estimated GFR 54 L Random Glucose 167 H Calcium 8.4 L Magnesium 2.3 Total Bilirubin 1.1 H AST 21 ALT 27 Alkaline Phosphatase 59 Total Protein 6.2 L Albumin 3.7 Urine Color Urine Clarity Urine pH Ur Specific [place] Urine Protein Urine Glucose (UA) Urine Ketones Urine Occult Blood Urine Nitrate Urine Bilirubin Urine Urobilinogen Ur Leukocyte Esterase Urine RBC Urine WBC Ur Squamous Epith Cells Urine Bacteria Hyaline Casts Urine Mucus Micro UA Comment Ur Microscopic Review Urine Culture Comments 05/27/18 05/27/18 05/27/18 06:55 09:13 16:30 WBC RBC Hgb Hct MCV MCH MCHC RDW Plt Count MPV Neut % (Auto) Lymph % (Auto) Barnes % (Auto) Eos % (Auto) Baso % (Auto) Neut # (Auto) Lymph # (Auto) Barnes # (Auto) Eos # (Auto) Baso # (Auto) WBC Differential Differential Comment Puncture Site Right radial Patient Temperature 98.6 O2 Saturation 93 ABG pH 7.47 H ABG pCO2 40 ABG pO2 73 ABG HCO3 29 H ABG O2 Content 12.4 ABG Base Excess 5.1 H ABG Methemoglobin 1.3 [place] Test Present Hemoglobin 9.4 L Carboxyhemoglobin 1.5 O2 Delivery Device Ventilator Vent Setting Prvc/ac Inspired O2 40 Critical Value No Sodium Potassium 3.4 L Chloride Carbon Dioxide Anion Gap BUN Creatinine Estimated GFR Random Glucose Calcium Magnesium Total Bilirubin AST ALT Alkaline Phosphatase Total Protein Albumin Urine Color Yellow Urine Clarity Clear Urine pH 5.0 Ur Specific [place] 1.015 Urine Protein 30 H Urine Glucose (UA) Negative Urine Ketones Negative Urine Occult Blood Small H Urine Nitrate Negative Urine Bilirubin Negative Urine Urobilinogen Less than 2 Ur Leukocyte Esterase Negative Urine RBC 2 Urine WBC 3 Ur Squamous Epith Cells <1 Urine Bacteria Occasional H Hyaline Casts 3 Urine Mucus Few H Micro UA Comment Cath-culture ind Ur Microscopic Review Not Reportable Urine Culture Comments Cath-cult indicated Imaging Studies: Impressions Chest X-Ray 05/27/18 05:00 CONCLUSION: Clear lungs. Medications: Active Medications Generic Name Dose Route Start Last Admin Trade Name Freq PRN Reason Stop Dose Admin Hydrocodone Bitart/Acetaminophen 1 tab 05/19/18 10:01 05/19/18 13:15 [place] 5/325 PO 1 tab Q6H PRN Administration Pain 2-5 Hydrocodone Bitart/Acetaminophen 1 tab 05/19/18 10:01 05/19/18 20:10 [place] 10/325 PO 1 tab Q6H PRN Administration Pain 6-10 Amlodipine Besylate 5 mg 05/26/18 10:00 05/27/18 08:47 Norvasc J-TUBE 5 mg DAILY VALERY Administration Artificial Tears 1 applicatio 05/22/18 21:00 05/27/18 08:50 Lacrilube Opth Oint EACH EYE 1 applicatio BID VALERY Administration Clonidine HCl 0.1 mg 05/26/18 11:24 05/26/18 23:31 Catapres PO 0.1 mg Q6H PRN Administration SBP>160, DBP>90 Fentanyl Citrate 100 mcg 05/23/18 10:59 05/23/18 11:12 Fentanyl Inj IV.PUSH 100 mcg Q1H PRN Administration Any pain Furosemide 20 mg 05/25/18 10:00 05/27/18 17:18 Lasix Inj IV.PUSH 20 mg Q8H VALERY Administration Heparin Sodium (Porcine) 0 unit 05/21/18 09:00 05/27/18 08:46 Heparin Central Flush IV.FLUSH 400 unit DAILY VALERY Administration Hydralazine HCl 10 mg 05/23/18 00:24 05/27/18 01:56 Apresoline Inj IV.PUSH 10 mg Q1H PRN Administration Sbp>165, Dbp>90 Hydromorphone HCl 2 mg 05/19/18 21:41 05/26/18 02:26 Dilaudid Pf Inj IV.PUSH 2 mg Q4H PRN Administration PAIN SCALE 6 -10 Pantoprazole Sodium 80 mg/ 100 mls @ 10 mls/hr 05/17/18 09:00 05/27/18 09:52 Sodium Chloride IV.CONT 10 mls/hr Q10H VALERY Administration Sodium Chloride 500 mls @ 30 mls/hr 05/18/18 07:00 05/18/18 07:00 Ns Inj IV.SIG Not Given .Q10H VALERY Fentanyl 2,500 mcg in 250 mls @ 5 mls/hr 05/20/18 20:00 05/27/18 07:41 Fentanyl 10 Mcg/Ml Premix Drip IV.SIG 100 mcg/hr TITRATE PRN 10 mls/hr Per Protocol Titration Protocol 50 MCG/HR Potassium Chloride 40 meq in 100 mls @ 25 mls/hr 05/22/18 22:43 05/27/18 11: 02 Kcl 40 Meq Premix Inj IV.SIG Infused Q2H PRN Infusion For Potassium 2.8 - 3.2 mEq/L Potassium Chloride 40 meq in 100 mls @ 25 mls/hr 05/22/18 22:43 05/23/18 03: 06 Kcl 40 Meq Premix Inj IV.SIG Infused UNSCH PRN Infusion For Potassium 3.3 - 3.5 mEq/L Potassium Phosphate 30 mmol/ 260 mls @ 42 mls/hr 05/22/18 22:43 05/23/18 12: 57 Sodium Chloride IV.SIG Infused UNSCH PRN Infusion SEE LABEL COMMENTS Propofol 1,000 mg in 100 mls @ 2.922 mls/hr 05/23/18 11:00 05/26/18 10:35 Diprivan 1000 Mg/100 Ml Inj IV.CONT 0 mcg/kg/min TITRATE PRN 0 mls/hr Per Protocol Titration Protocol 5 MCG/KG/MIN Clevidipine 25 mg in 50 mls @ 2 mls/hr 05/26/18 11:23 05/27/18 19:13 Cleviprex Inj IV.CONT 12 mg/hr TITRATE PRN 24 mls/hr Per protocol Administration Protocol 1 MG/HR Labetalol HCl 20 mg 05/26/18 07:44 05/27/18 03:30 Trandate Inj IV.PUSH 20 mg Q2H PRN Administration KEEP SBP<160 Lidocaine HCl 2 patch 05/19/18 09:30 05/27/18 08:47 Lidoderm 5% Patch.12 Hr T-DERMAL 2 patch DAILY VALERY Administration Methylprednisolone Sodium Succinate 50 mg 05/26/18 20:00 05/26/18 20:57 Solumedrol Inj IV.PUSH 50 mg Q24H VALERY Administration Ondansetron HCl 4 mg 05/17/18 06:10 05/27/18 17:32 Zofran Inj IV.PUSH 4 mg Q6H PRN Administration NAUSEA OR VOMITING Patch Removal 1 each 05/19/18 21:00 05/27/18 08:50 Remove Old Patch T-DERMAL 1 each BID VALERY Administration Potassium Bicarb/Potassium Chloride 25 meq 05/26/18 21:00 05/27/18 08:47 K-Lyte Cl Eff NG/OG 25 meq BID VALERY Administration Prochlorperazine Edisylate 10 mg 05/17/18 09:06 05/19/18 00:08 Compazine Inj IV.PUSH 10 mg Q6H PRN Administration NAUSEA Senna/Docusate Sodium 1 tab 05/17/18 09:00 05/27/18 08:47 Jessie-Colace PO 1 tab BID VALERY Administration Sodium Chloride 0 ml 11/29/18 09:00 05/27/18 08:50 Ns Flush IV.FLUSH 2 ml DAILY VALERY Administration Sodium Chloride 0 ml 05/20/18 16:43 05/26/18 01:39 Ns Flush IV.FLUSH 2 ml PRN PRN Administration FLUSH AFTER USING IV ACCESS Objective Remarks: GENERAL: Remains critically ill SKIN: Warm and dry. HEAD: Normocephalic. EYES: No scleral icterus. No injection or drainage. NECK: Supple, trachea midline. No JVD or lymphadenopathy. LYMPHATIC: No adenopathy. CARDIOVASCULAR: Regular rate and rhythm without murmurs. RESPIRATORY: Breath sounds decreased at bases GASTROINTESTINAL: Abdomen remains distended EXTREMITIES: +1 edema MUSCULOSKELETAL: Poor muscle tone NEUROLOGICAL: No obvious focal deficit. Moves all extremities but remains sedated Assessment/Plan - Plan .. Platelets remain greater than 100,000 and stable. Will continue to taper the steroids as they produce increased risks of poor healing and infection and these will be major issues for her. Solu-Medrol currently 50 mg IV daily and will plan on decreasing the Solu-Medrol tomorrow as long as the platelet count has not significantly fallen.
[2018-05-27] MEDS: MethylPREDNISolone Sod Succinate Inj 125 MG/2 ML Vial IV.PUSH SCH (20:31)
[2018-05-28] MEDS: Clevidipine Inj 25 MG/50 ML VIAL IV.CONT PRN ×3 (03:11→06:45)
[2018-05-28] MEDS: Pantoprazole Inj 80 MG in Sodium Chlor 0.9% Inj 100 ML IV.CONT SCH ×2 (04:53→14:10)
[2018-05-28] MEDS: fentaNYL 10 mcg/mL Premix Drip 2,500 MCG/250 ML BAG IV.SIG PRN (04:54)
--- NOTE | 2018-05-28 06:45 | XR ---
EXAM DATE: 05/28/2018 6:10 AM EST AGE/SEX: 82 years / Female INDICATIONS: Nausea and vomiting on a intubated patient with a nasogastric tube in place. CLINICAL DATA: This is the patient's subsequent encounter. Patient reports that signs and symptoms h ave been present for 2 weeks and indicates a pain score of Nonresponsive. MEDICAL/SURGICAL HISTORY: . Hypertension. Sjogren syndrome. GI Bleed Coronary artery stent. Lobectomy. Thoracotomy. COMPARISON: No prior exams available for comparison. FINDINGS: The abdominal bowel gas pattern is normal. A gastrostomy tube within a decompressed stomach. Cathete r overlies the right abdomen and left abdomen. Surgical mel noted. No abnormal masses, calcifica tions, or organomegaly is seen. The osseous structures are unremarkable. Scoliotic and degenerative spine. CONCLUSION: No dilated bowel loops. Electronically signed by: Wang Scott MD 05/28/2018 6:43 AM EST
[2018-05-28 07:11] LABS: Baso % (Auto) 0.1 % (0.0-2.0); Hematocrit 29.6 % (35.0-46.0); Hemoglobin 9.8 gm/dL (11.6-15.3); Lymph # (Auto) 0.2 th/mm3 (1.0-4.8); Lymph % (Auto) 0.9 % (9.0-44.0); Mean Corpuscular Hemoglobin 29.4 pg (27.0-34.0); Mean Corpuscular Volume 89.1 fL (80.0-100.0); Mean Platelet Volume 9.5 fL (7.0-11.0); Mono # (Auto) 0.7 th/mm3 (0.0-0.9); Mono % (Auto) 3.1 % (0.0-8.0); Neut # (Auto) 20.6 th/mm3 (1.8-7.7); Neut % (Auto) 95.9 % (16.0-70.0); Platelet Count 127 th/mm3 (150-450); Red Blood Count 3.32 mil/mm3 (4.00-5.30); Red Cell Distribution Width 16.1 % (11.6-17.2); White Blood Count 21.5 th/mm3 (4.0-11.0)
[2018-05-28 07:56] LABS: Alanine Aminotransferase 67 U/L (10-53); Albumin 3.2 g/dL (3.4-5.0); Alkaline Phosphatase 79 U/L (45-117); Anion Gap 8 meq/L (5-15); Aspartate Aminotransferase 46 U/L (15-37); Blood Urea Nitrogen 59 mg/dL (7-18); Carbon Dioxide 28.7 meq/L (21.0-32.0); Chloride 120 meq/L (98-107); Glomerular Filtration Rate 45 mL/min (>89); Glucose,Random 136 mg/dL (74-106); Potassium 3.7 meq/L (3.5-5.1); Total Protein 6.1 g/dL (6.4-8.2)
[2018-05-28 08:04] LABS: Sodium 157 meq/L (136-145)
[2018-05-28] MEDS: Artificial Tears Opth Oint 3.5 GM Tube EACH EYE SCH ×2 (09:32→21:06)
[2018-05-28] MEDS: Lidocaine 5% Patch T-DERMAL SCH (09:32)
[2018-05-28] MEDS: amLODIPine 5 MG Tablet J-TUBE SCH (09:32)
[2018-05-28] MEDS: Senna/Docusate Sodium 8.6/50 MG Tablet PO SCH ×2 (09:33→21:07)
[2018-05-28] MEDS: Potassium Chloride 25 MEQ Effervescent Tablet NG/OG SCH ×2 (09:33→21:06)
[2018-05-28] MEDS: Heparin Central Flush 100 UNIT/ML 5 ML Vial IV.FLUSH SCH (09:33)
--- NOTE | 2018-05-28 09:45 | XR ---
EXAM DATE: 05/28/2018 9:36 AM EST AGE/SEX: 82 years / Female INDICATIONS: Evaluate for aspiration CLINICAL DATA: This is the patient's subsequent encounter. Patient reports that signs and symptoms h ave been present for 1 week and indicates a pain score of Nonresponsive. MEDICAL/SURGICAL HISTORY: . Hypertension. Sjogren's syndrome. GI Bleed . . Coronary artery st ent. Lobectomy. Thoracotomy COMPARISON: [facility] [place], CHEST 1V SINGLE AP, 05/27/2018. [facility] [place], CHEST 1V SINGLE AP, 05/25/2018. . FINDINGS: Portable AP view of the chest demonstrates a normal-sized cardiac silhouette. Patient is rotated and underinflated. ETT, nasogastric tube, right IJ line, and right upper extremity PICC remain present. E KG lines overlie the patient. There is elevation of the right hemidiaphragm with mild bibasilar opaci ty similar to the prior study. No pneumothorax or pleural effusion is visualized. CONCLUSION: Underinflation with minimal bibasilar opacity most likely representing atelectasis. This finding is i mproved since the 05/25/2018 examination. There are no findings to suggest aspiration. Electronically signed by: Jamar Ngo MD 05/28/2018 9:44 AM EST
--- NOTE | 2018-05-28 09:56 | P.PNCC ---
Subjective Subjective Remarks/Hospital Course: Hospital Course: 82yF with history of amyloidosis who presented with GI bleeding, hypotension, and severe anemia. originally admitted to the floor. hgb continued to downtrend despite transfusions. today taken for EGD which found blood in the stomach and clot, but no active bleeding. despite this, hgb still did not improve. taken for bleeding scan which was very +. discussed case with Dr. Garcia/Dr. Garland in IR. review of admission CT abd/pelvis demonstrates possible bleeding at duodenal bulb concerning for ulceration. Taken emergently to IR for embolization which appears to be successful. I evaluated the patient upon arrival to the ICU post-IR procedure. she is stable. complaining of hip pain. hgb has improved appropriately. she denies other complaints. she asked me not to look at her groin sites because "my hips hurt and I am tired." Recent evaluation by bedside RN is without hematoma, and this evaluation is deferred at patient's request (bedside RN to continue to monitor for signs of hematoma). remainder of ROS negative. Subjective: 05/20: doing well. complaining of moderate abdominal pain 5/10. receiving iv dilaudid currently. plan for EGD today. hgb dropped from 7.8 to 7.4, but slightly more tachycardic today, and I am worried about ongoing bleeding, although it does appear to be much slower clinically than yesterday. I discussed with GI RAISED PRINTER that per my conversation with IR, the lesion may be in the 4th portion of the duodenum near the ligament and it may require further investigation that usual EGD, and possibly push enteroscopy. She stated she would convey to the proceduralist. Dr. Shin suggests type II NSTEMI secondary to anemia and I agree completely with his assessment. Given that she is going soon for repeat EGD with anesthesia, will give 1 additional unit of prbc as she clearly has demonstrated she needs higher hematocrit for oxygen carrying capacity to her known ischemic CAD lesions. 05/21: s/p exploratory laparotomy last night. open abdomen. hgb stable. became acutely hypotensive with increased wound vac output one time today- emergently gave 1 unit prbc and 1 unit plt empirically given sudden change in condition. significant 3rd space losses requiring additional resuscitative efforts. remains deeply sedated. off vasopressors. remains intubated. 05/22: more hemodynamically stable today. hgb stable. still high wound-vac output with 300-500mL/12h. uop remains adequate at 70-80mL/hr, but Cr slightly elevated over baseline. unable to start diuresis yet and clinically although developing anasarca in the tissues, appears intravascularly euvolemic but not overloaded. likely will not tolerate diuresis efforts without significant kidney injury at this present juncture. needs bringback and washout in OR, but will leave timing of this to general surgery. 05/23: Received from operating room in good condition. Abdominal wound closed following gastrojejunostomy. Joseph-Vieira drain in region of the duodenal stump, gastric anastomosis. Nasogastric tube to not be moved, good position in stomach, keep to low intermittent suction. Downstream jejunostomy tube for initiation of trickle feeds. Renal function this morning excellent, follow closely. Chemical ventilation for the next couple of days as we observe tension on the abdominal wall. Meticulously avoid fluid overload. At present she is hypertensive and tachycardic for which we will restart propofol and use boluses of fentanyl as needed. Baseline fentanyl drip is infusing. 05/24: Remains warm and well-perfused overnight. Urine output acceptable at 35- 40 cc/h. Tolerated spontaneous breathing trial well this morning, we keep on vent for another 24-48 hours. Generalized edema persists. 05/25: Intubated sedated heavily. Urine output excellent with Lasix overall 3 L. Currently remains grossly fluid overloaded approximately 20 kg up from admission weight. We will start scheduled Lasix 20 every 8 hours with potassium replacement to facilitate ventilator weaning. 05/26: Sedated, orally intubated on mech vent. Being diuresed. Elevated BP on lightening sedation noted. 05/27: Sedated, orally intubated on mechanical ventilation. Being diuresed. Failed CPAP trial earlier. On Cleviprex for hypertension 05/28: Had episode of emesis last night. NGT remains to suction. Febrile overnight with rising WBCs noted. Sputum culture and UA ordered 05/27, getting blood cultures and starting empiric Abx coverage. Being diuresed. Cleviprex gtt being titrated down. Objective Vital Signs / I&O: Vital Signs 05/27/18 10:00 05/27/18 10:15 05/27/18 10:30 Temperature Pulse Rate 116 H 115 H 100 H Respiratory Rate Blood Pressure 144/67 H 146/65 H 117/58 L Pulse Oximetry 94 L 94 L 95 05/27/18 10:45 05/27/18 11:00 05/27/18 11:15 Temperature Pulse Rate 93 H 96 H 101 H Respiratory Rate Blood Pressure 114/58 L 121/56 L 127/61 Pulse Oximetry 95 95 96 05/27/18 11:30 05/27/18 11:45 05/27/18 12:00 Temperature 99.0 F Pulse Rate 103 H 104 H 104 H Respiratory Rate Blood Pressure 132/57 L 129/61 130/63 Pulse Oximetry 94 L 95 94 L 05/27/18 12:15 05/27/18 12:30 05/27/18 12:44 Temperature Pulse Rate 106 H 105 H Respiratory Rate 14 Blood Pressure 129/60 133/62 Pulse Oximetry 95 95 94 L 05/27/18 12:45 05/27/18 13:00 05/27/18 13:15 Temperature Pulse Rate 109 H 107 H 109 H Respiratory Rate Blood Pressure 128/61 132/62 130/62 Pulse Oximetry 95 95 95 05/27/18 13:30 05/27/18 13:45 05/27/18 14:00 Temperature Pulse Rate 110 H 109 H 104 H Respiratory Rate 19 Blood Pressure 132/62 137/65 131/63 Pulse Oximetry 95 94 L 95 05/27/18 14:15 05/27/18 14:30 05/27/18 14:45 Temperature Pulse Rate 108 H 107 H 107 H Respiratory Rate Blood Pressure 132/61 132/61 129/60 Pulse Oximetry 96 96 96 05/27/18 15:00 05/27/18 15:15 05/27/18 15:30 Temperature Pulse Rate 107 H 107 H 108 H Respiratory Rate 18 Blood Pressure 129/63 129/58 L 131/62 Pulse Oximetry 95 96 95 05/27/18 15:45 05/27/18 16:00 05/27/18 16:15 Temperature 99.1 F Pulse Rate 109 H 107 H 110 H Respiratory Rate 18 Blood Pressure 131/63 130/62 125/59 L Pulse Oximetry 95 96 94 L 05/27/18 16:30 05/27/18 16:45 05/27/18 17:00 Temperature Pulse Rate 112 H 111 H 110 H Respiratory Rate 21 Blood Pressure 122/57 L 126/58 L 122/58 L Pulse Oximetry 93 L 94 L 93 L 05/27/18 17:15 05/27/18 17:30 05/27/18 17:36 Temperature Pulse Rate 107 H 116 H Respiratory Rate 23 Blood Pressure 121/58 L 122/56 L Pulse Oximetry 91 L 94 L 96 05/27/18 17:45 05/27/18 18:00 05/27/18 18:15 Temperature Pulse Rate 108 H 109 H 107 H Respiratory Rate 22 Blood Pressure 116/58 L 119/56 L 118/59 L Pulse Oximetry 90 L 95 97 05/27/18 18:30 05/27/18 21:01 05/27/18 21:30 Temperature 100.4 F H Pulse Rate 112 H 108 H Respiratory Rate 21 Blood Pressure 129/58 L 134/55 L Pulse Oximetry 98 96 96 05/27/18 21:45 05/27/18 22:00 05/27/18 22:15 Temperature Pulse Rate 107 H 109 H 106 H Respiratory Rate Blood Pressure 127/60 135/58 L 132/60 Pulse Oximetry 96 97 96 05/27/18 22:30 05/27/18 22:45 05/27/18 23:00 Temperature Pulse Rate 106 H 112 H 106 H Respiratory Rate Blood Pressure 136/62 139/64 137/58 L Pulse Oximetry 97 97 97 05/27/18 23:15 05/27/18 23:30 05/27/18 23:45 Temperature Pulse Rate 106 H 110 H 112 H Respiratory Rate Blood Pressure 131/60 147/65 H 141/65 H Pulse Oximetry 97 98 98 05/28/18 00:00 05/28/18 00:15 05/28/18 00:30 Temperature 101.9 F H Pulse Rate 113 H 107 H 106 H Respiratory Rate Blood Pressure 141/63 H 144/66 H 127/54 L Pulse Oximetry 98 97 98 05/28/18 00:32 05/28/18 00:45 05/28/18 01:00 Temperature Pulse Rate 111 H 106 H Respiratory Rate 20 Blood Pressure 129/60 132/62 Pulse Oximetry 98 97 97 05/28/18 01:15 05/28/18 01:30 05/28/18 01:45 Temperature Pulse Rate 105 H 101 H 101 H Respiratory Rate Blood Pressure 131/62 129/61 127/61 Pulse Oximetry 97 97 97 05/28/18 02:00 05/28/18 02:15 05/28/18 02:30 Temperature Pulse Rate 102 H 105 H 112 H Respiratory Rate Blood Pressure 127/60 133/61 136/63 Pulse Oximetry 97 97 97 05/28/18 02:45 05/28/18 03:00 05/28/18 03:15 Temperature Pulse Rate 114 H 106 H 110 H Respiratory Rate Blood Pressure 141/65 H 125/62 136/63 Pulse Oximetry 97 97 97 05/28/18 03:30 05/28/18 03:45 05/28/18 04:00 Temperature 99.2 F Pulse Rate 112 H 116 H 112 H Respiratory Rate Blood Pressure 145/67 H 141/65 H 142/65 H Pulse Oximetry 97 97 97 05/28/18 04:15 05/28/18 04:30 05/28/18 04:45 Temperature Pulse Rate 118 H 116 H 118 H Respiratory Rate Blood Pressure 139/64 144/66 H 140/65 Pulse Oximetry 97 97 97 05/28/18 05:00 05/28/18 05:15 05/28/18 05:16 Temperature Pulse Rate 114 H 113 H Respiratory Rate 22 Blood Pressure 140/56 L Pulse Oximetry 97 97 97 05/28/18 05:30 05/28/18 05:45 05/28/18 06:00 Temperature Pulse Rate 109 H 106 H 108 H Respiratory Rate Blood Pressure Pulse Oximetry 96 97 97 05/28/18 06:08 05/28/18 06:15 05/28/18 06:30 Temperature Pulse Rate 106 H 105 H 107 H Respiratory Rate Blood Pressure 122/58 L 125/59 L 121/58 L Pulse Oximetry 97 96 96 05/28/18 06:45 05/28/18 07:00 05/28/18 07:15 Temperature Pulse Rate 103 H 103 H 104 H Respiratory Rate Blood Pressure 122/58 L 130/60 129/62 Pulse Oximetry 96 96 96 05/28/18 07:30 05/28/18 07:45 05/28/18 08:00 Temperature 100.5 F H Pulse Rate 104 H 107 H 109 H Respiratory Rate Blood Pressure 130/63 130/64 128/61 Pulse Oximetry 96 97 97 05/28/18 08:15 05/28/18 08:23 05/28/18 08:30 Temperature Pulse Rate 109 H 110 H 108 H Respiratory Rate 22 Blood Pressure 134/64 129/58 L Pulse Oximetry 97 98 97 05/28/18 08:45 05/28/18 09:00 Temperature Pulse Rate 111 H 108 H Respiratory Rate Blood Pressure 137/65 136/66 Pulse Oximetry 97 97 Intake & Output 05/27/18 05/28/18 05/28/18 18:59 06:59 18:59 Intake Total 1258 / 1258 1359 / 1359 Output Total 1979 / 1979 2685 / 2685 Balance -722 / -722 -1326 / -1326 Weight 80.9 kg Intake: IV 600 / 600 800 / 800 Cleviprex Inj 25 mg In 50 ml @ 300 / 300 250 / 250 1 MG/HR 2 mls/hr IV.CONT TITRATE PRN Rx#:[id number] Protonix Inj 80 MG In NS Inj 100 / 100 200 / 200 100 ML @ 10 mls/hr IV.CONT Q10H VALERY Rx#:[id number] KCl 40 mEq Premix Inj 40 meq In 200 / 200 100 / 100 100 ml @ 25 mls/hr IV.SIG UNSCH PRN Rx#:[id number] fentaNYL 10 mcg/mL Premix Drip 250 / 250 2,500 mcg In 250 ml @ 50 MCG/HR 5 mls/hr IV.SIG TITRATE PRN Rx #:[id number] Tube Feeding 508 / 508 559 / 559 Tube Irrigant 150 / 150 Output: Stool 100 / 100 50 / 50 Urine Amount (Catheter) 1350 / 1350 1999 Indwelling Urethral Catheter 1350 / 1350 1999 Gastric Drainage 450 / 450 575 / 575 Right Nare Nasogastric Tube 450 / 450 575 / 575 Wound Drainage 80 / 80 60 / 60 # 2 Left Abdomen 80 / 80 60 / 60 Result Diagrams: 05/28/18 05:38 05/28/18 05:38 Imaging: Impressions Chest X-Ray 05/27/18 05:00 CONCLUSION: Clear lungs. Chest X-Ray 05/28/18 00:00 CONCLUSION: Underinflation with minimal bibasilar opacity most likely representing atelectasis. This finding is improved since the 05/25/2018 examination. There are no findings to suggest aspiration. Abdomen X-Ray 05/28/18 05:23 CONCLUSION: No dilated bowel loops. Objective Remarks: GENERAL: Well sedated patient, mechanically ventilated, calm. HEENT: Normocephalic. Atraumatic. GEOVANI. Orotracheal intubation. CHEST: Clear breath sounds bilaterally, equal chest rise. Air entry diminished at the bases. No adventitious sounds. CARDIOVASCULAR: Normal S1-S2. Regular normal rate, regular rhythm. No JVD. ABDOMEN: Fascia closed, postsurgical wound intact, abdominal binder in place. Soft, nondistended. Few bowel sounds heard. MUSCULOSKELETAL: Bilateral foot pulses 2+. bilateral foot and ankle edema. Warm and well-perfused fingers and toes. NEUROLOGICAL: RASS -2, withdraws 4 limbs, localizes, breathing spontaneously over the ventilator. Opens eyes to loud voice. Assessment and Plan - Assessment and Plan Plan: Assessment: 82yF with amyloidosis and active GI bleed. s/p emergent IA embolization 05/19. s/p EGD 05/19 and again 05/20 with ischemia present. s/p emergent exploratory laparotomy with duodenal and jejunal resection, initially left in discontinuity with open abdomen, and now reconstructed with abdominal wall closure. Remains critically ill. Scheduled Lasix started for aggressive diuresis. Grossly fluid up approximately 20 kg Active upper GI bleed Acute hypoxic and hypercarbic respiratory failure s/p emergent exploratory laparotomy with duodenal and jejunal resection, initially left in discontinuity with open abdomen 05/20 Now reconstructed with abdominal wall closure. severe acute anemia secondary to blood loss requiring transfusion- persistent duodenal ulcer Type II NSTEMI secondary to demand ischemia from severe anemia s/p EGD 05/19, 05/20 s/p emergent IR embolization 05/19 severe acute thrombocytopenia acute protein calorie malnutrition- moderate to severe Fluid overload Fever - suspected sepsis Plan: - [facility] ventilator mode. Daily spontaneous breathing trials. - propofol, fentanyl for goal RASS -2 to - 3. Discontinue Versed - Decrease IV Lasix 20 mg every 12 hours with potassium replacement - Grossly fluid positive approximately 20 kg. Need to get weight closer to admission weight prior to extubation - Off IV fluids - F/u cultures, Starting empiric abx with azactam, zyvox, flagyl via J tube. ID consulted for further abx management, sepsis eval. - Labetalol prn, Cardene gtt to keep SBP less than 160mm Hg, Norvasc 5mg via J tube daily started 05/26 - Serial hemoglobin, transfuse to keep hgb > 7 - serially check platelets, transfuse to keep plt > 50k. Tapering solumedrol, decreased to 40mg daily - tube feeds per general surgery, through jejunostomy. Currently held - Daily am cbc, bmp, mg, phos - ICU electrolyte replacement protocol - SCDs. Start subcu heparin when cleared by general surgery. Overall impression: This patient remains critically ill with fluctuating renal function, fluid overload and compromised respiratory reserve due to recent resuscitation volume and generalized edema, complicated by abdominal wall closure now. Critical care 35 mins
--- NOTE | 2018-05-28 09:58 | P.PNGS ---
Subjective Patient reports: other (Nursing reports vomiting around endotracheal tube. Fever to 101.5 last night. Continues to tolerate tube feeds and have bowel function.) Physical Exam Vital signs: Vital Signs 05/27/18 10:00 05/27/18 10:15 05/27/18 10:30 Temperature Pulse Rate 116 H 115 H 100 H Respiratory Rate Blood Pressure 144/67 H 146/65 H 117/58 L Pulse Oximetry 94 L 94 L 95 05/27/18 10:45 05/27/18 11:00 05/27/18 11:15 Temperature Pulse Rate 93 H 96 H 101 H Respiratory Rate Blood Pressure 114/58 L 121/56 L 127/61 Pulse Oximetry 95 95 96 05/27/18 11:30 05/27/18 11:45 05/27/18 12:00 Temperature 99.0 F Pulse Rate 103 H 104 H 104 H Respiratory Rate Blood Pressure 132/57 L 129/61 130/63 Pulse Oximetry 94 L 95 94 L 05/27/18 12:15 05/27/18 12:30 05/27/18 12:44 Temperature Pulse Rate 106 H 105 H Respiratory Rate 14 Blood Pressure 129/60 133/62 Pulse Oximetry 95 95 94 L 05/27/18 12:45 05/27/18 13:00 05/27/18 13:15 Temperature Pulse Rate 109 H 107 H 109 H Respiratory Rate Blood Pressure 128/61 132/62 130/62 Pulse Oximetry 95 95 95 05/27/18 13:30 05/27/18 13:45 05/27/18 14:00 Temperature Pulse Rate 110 H 109 H 104 H Respiratory Rate 19 Blood Pressure 132/62 137/65 131/63 Pulse Oximetry 95 94 L 95 05/27/18 14:15 05/27/18 14:30 05/27/18 14:45 Temperature Pulse Rate 108 H 107 H 107 H Respiratory Rate Blood Pressure 132/61 132/61 129/60 Pulse Oximetry 96 96 96 05/27/18 15:00 05/27/18 15:15 05/27/18 15:30 Temperature Pulse Rate 107 H 107 H 108 H Respiratory Rate 18 Blood Pressure 129/63 129/58 L 131/62 Pulse Oximetry 95 96 95 05/27/18 15:45 05/27/18 16:00 05/27/18 16:15 Temperature 99.1 F Pulse Rate 109 H 107 H 110 H Respiratory Rate 18 Blood Pressure 131/63 130/62 125/59 L Pulse Oximetry 95 96 94 L 05/27/18 16:30 05/27/18 16:45 05/27/18 17:00 Temperature Pulse Rate 112 H 111 H 110 H Respiratory Rate 21 Blood Pressure 122/57 L 126/58 L 122/58 L Pulse Oximetry 93 L 94 L 93 L 05/27/18 17:15 05/27/18 17:30 05/27/18 17:36 Temperature Pulse Rate 107 H 116 H Respiratory Rate 23 Blood Pressure 121/58 L 122/56 L Pulse Oximetry 91 L 94 L 96 05/27/18 17:45 05/27/18 18:00 05/27/18 18:15 Temperature Pulse Rate 108 H 109 H 107 H Respiratory Rate 22 Blood Pressure 116/58 L 119/56 L 118/59 L Pulse Oximetry 90 L 95 97 05/27/18 18:30 05/27/18 21:01 05/27/18 21:30 Temperature 100.4 F H Pulse Rate 112 H 108 H Respiratory Rate 21 Blood Pressure 129/58 L 134/55 L Pulse Oximetry 98 96 96 05/27/18 21:45 05/27/18 22:00 05/27/18 22:15 Temperature Pulse Rate 107 H 109 H 106 H Respiratory Rate Blood Pressure 127/60 135/58 L 132/60 Pulse Oximetry 96 97 96 05/27/18 22:30 05/27/18 22:45 05/27/18 23:00 Temperature Pulse Rate 106 H 112 H 106 H Respiratory Rate Blood Pressure 136/62 139/64 137/58 L Pulse Oximetry 97 97 97 05/27/18 23:15 05/27/18 23:30 05/27/18 23:45 Temperature Pulse Rate 106 H 110 H 112 H Respiratory Rate Blood Pressure 131/60 147/65 H 141/65 H Pulse Oximetry 97 98 98 05/28/18 00:00 05/28/18 00:15 05/28/18 00:30 Temperature 101.9 F H Pulse Rate 113 H 107 H 106 H Respiratory Rate Blood Pressure 141/63 H 144/66 H 127/54 L Pulse Oximetry 98 97 98 05/28/18 00:32 05/28/18 00:45 05/28/18 01:00 Temperature Pulse Rate 111 H 106 H Respiratory Rate 20 Blood Pressure 129/60 132/62 Pulse Oximetry 98 97 97 05/28/18 01:15 05/28/18 01:30 05/28/18 01:45 Temperature Pulse Rate 105 H 101 H 101 H Respiratory Rate Blood Pressure 131/62 129/61 127/61 Pulse Oximetry 97 97 97 05/28/18 02:00 05/28/18 02:15 05/28/18 02:30 Temperature Pulse Rate 102 H 105 H 112 H Respiratory Rate Blood Pressure 127/60 133/61 136/63 Pulse Oximetry 97 97 97 05/28/18 02:45 05/28/18 03:00 05/28/18 03:15 Temperature Pulse Rate 114 H 106 H 110 H Respiratory Rate Blood Pressure 141/65 H 125/62 136/63 Pulse Oximetry 97 97 97 05/28/18 03:30 05/28/18 03:45 05/28/18 04:00 Temperature 99.2 F Pulse Rate 112 H 116 H 112 H Respiratory Rate Blood Pressure 145/67 H 141/65 H 142/65 H Pulse Oximetry 97 97 97 05/28/18 04:15 05/28/18 04:30 05/28/18 04:45 Temperature Pulse Rate 118 H 116 H 118 H Respiratory Rate Blood Pressure 139/64 144/66 H 140/65 Pulse Oximetry 97 97 97 05/28/18 05:00 05/28/18 05:15 05/28/18 05:16 Temperature Pulse Rate 114 H 113 H Respiratory Rate 22 Blood Pressure 140/56 L Pulse Oximetry 97 97 97 05/28/18 05:30 05/28/18 05:45 05/28/18 06:00 Temperature Pulse Rate 109 H 106 H 108 H Respiratory Rate Blood Pressure Pulse Oximetry 96 97 97 05/28/18 06:08 05/28/18 06:15 05/28/18 06:30 Temperature Pulse Rate 106 H 105 H 107 H Respiratory Rate Blood Pressure 122/58 L 125/59 L 121/58 L Pulse Oximetry 97 96 96 05/28/18 06:45 05/28/18 07:00 05/28/18 07:15 Temperature Pulse Rate 103 H 103 H 104 H Respiratory Rate Blood Pressure 122/58 L 130/60 129/62 Pulse Oximetry 96 96 96 05/28/18 07:30 05/28/18 07:45 05/28/18 08:00 Temperature 100.5 F H Pulse Rate 104 H 107 H 109 H Respiratory Rate Blood Pressure 130/63 130/64 128/61 Pulse Oximetry 96 97 97 05/28/18 08:15 05/28/18 08:23 05/28/18 08:30 Temperature Pulse Rate 109 H 110 H 108 H Respiratory Rate 22 Blood Pressure 134/64 129/58 L Pulse Oximetry 97 98 97 05/28/18 08:45 05/28/18 09:00 Temperature Pulse Rate 111 H 108 H Respiratory Rate Blood Pressure 137/65 136/66 Pulse Oximetry 97 97 Intake & Output 05/27/18 05/28/18 05/28/18 18:59 06:59 18:59 Intake Total 1258 / 1258 1359 / 1359 Output Total 1979 / 1979 2685 / 2685 Balance -722 / -722 -1326 / -1326 Weight 80.9 kg Intake: IV 600 / 600 800 / 800 Cleviprex Inj 25 mg In 50 ml @ 300 / 300 250 / 250 1 MG/HR 2 mls/hr IV.CONT TITRATE PRN Rx#:[id number] Protonix Inj 80 MG In NS Inj 100 / 100 200 / 200 100 ML @ 10 mls/hr IV.CONT Q10H VALERY Rx#:[id number] KCl 40 mEq Premix Inj 40 meq In 200 / 200 100 / 100 100 ml @ 25 mls/hr IV.SIG UNSCH PRN Rx#:[id number] fentaNYL 10 mcg/mL Premix Drip 250 / 250 2,500 mcg In 250 ml @ 50 MCG/HR 5 mls/hr IV.SIG TITRATE PRN Rx #:[id number] Tube Feeding 508 / 508 559 / 559 Tube Irrigant 150 / 150 Output: Stool 100 / 100 50 / 50 Urine Amount (Catheter) 1350 / 1350 1999 Indwelling Urethral Catheter 1350 / 1350 1999 Gastric Drainage 450 / 450 575 / 575 Right Nare Nasogastric Tube 450 / 450 575 / 575 Wound Drainage 80 / 80 60 / 60 # 2 Left Abdomen 80 / 80 60 / 60 Narrative: Bilious drainage around endotracheal tube. Equal bilateral breath sounds anteriorly. Abdomen is soft. Few bowel sounds are heard. Shama dressing remains intact with no significant drainage. J-tube site looks fine. DAKOTA drainage site looks fine. Her extremities still appear to be mildly edematous. - Urinary Catheter Management Indwelling Urethral Catheter Cath placed during this visit: yes Reason for continuing: Acute urinary retention Insertion date: 05/20/18 Insertion time: 19:55 Results - Labs 05/28/18 05:38 05/28/18 05:38 Laboratory Results - last 24 hr 05/27/18 05/28/18 05/28/18 16:30 05:38 05:38 WBC 21.5 H RBC 3.32 L Hgb 9.8 L Hct 29.6 L MCV 89.1 MCH 29.4 MCHC 33.0 RDW 16.1 Plt Count 127 L MPV 9.5 Neut % (Auto) 95.9 H Lymph % (Auto) 0.9 L Sterling % (Auto) 3.1 Eos % (Auto) 0.0 Baso % (Auto) 0.1 Neut # (Auto) 20.6 H Lymph # (Auto) 0.2 L Sterling # (Auto) 0.7 Eos # (Auto) 0.0 Baso # (Auto) 0.0 WBC Differential . Differential Comment Auto diff final Sodium 157 H* Potassium 3.4 L 3.7 Chloride 120 H Carbon Dioxide 28.7 Anion Gap 8 BUN 59 H Creatinine 1.16 H Estimated GFR 45 L Random Glucose 136 H Calcium 9.0 Total Bilirubin 1.1 H AST 46 H ALT 67 H Alkaline Phosphatase 79 Total Protein 6.1 L Albumin 3.2 L - Imaging Imaging: ITS Impressions GI Bleed Scan Nuclear Medicine 05/19/18 00:00 CONCLUSION: 1. 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 Patient was emergently brought to the interventional radiology department from the nuclear medicine department for angiography and intervention. Mesenteric Arteriogram 05/19/18 14:37 CONCLUSION: 1. 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 2. 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 PICC Line Insertion 05/20/18 00:00 CONCLUSION: 1. Uncomplicated central venous Power PICC line placement. 2. The PICC line can be used immediately. Abdomen/Pelvis CT 05/20/18 18:16 CONCLUSION: 1. Nonspecific, nonobstructive bowel gas pattern which may represent a mild ileus or be related to the recent endoscopy and insufflation of air. There is no focal wall thickening or inflammatory change. There is no free air or fluid. 2. Nonobstructing left renal calculi. 3. Small effusions and mild consolidative opacity in both lung bases. Chest X-Ray 05/28/18 00:00 CONCLUSION: Underinflation with minimal bibasilar opacity most likely representing atelectasis. This finding is improved since the 05/25/2018 examination. There are no findings to suggest aspiration. Abdomen X-Ray 05/28/18 05:23 CONCLUSION: No dilated bowel loops. Assessment and Plan - Assessment (1) GI bleed Code(s): K92.2 - Gastrointestinal hemorrhage, unspecified Status: Acute Plan: 82 year old female POD3 exploratory laparotomy, gastrojejunostomy, closure, j tube -Tolerating TF at goal of 55 cc/hr -Vent per CCM -Okay to start anticoagulation from GS standpoint ---discussed with LUDWIG Ceja -Wean sedation as tolerated - Plan I personally evaluated the patient in room 1309. She remains ventilated and somewhat sedated. I did ask her to squeeze my fingers and I believe she did so and responded appropriately squeezing my fingers with her left hand. Her eyes were partially opened and she moved her head around but could not get her to wiggle her toes in response to verbal request. Her nasogastric tube has primarily bilious fluid. Her breath sounds were clear and equal anteriorly bilaterally. Her abdomen remains somewhat distended yet soft. The shama dressing is intact with tiny spot of dried drainage on it. J-tube exit site is clean she is tolerating tube feeds now at 50 an hour. She does have a large amount of liquid dark brown stool in the Flexi-Seal bag. Her DAKOTA drain is draining yellow serous drainage with occasional clot in it. Her extreme extremities remain mildly edematous. Her hemoglobin was 9.3 today. Her platelet count was 117. I do not believe she is demonstrating signs of any active bleeding at this time. 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 Slow ventilator weaning as the patient failed a CPAP trial yesterday. Continue diuresis. Continue to support low potassium. Plan shama dressing change on Friday. Continue current support. I discussed in detail the patient's status yesterday afternoon with the patient's daughter, Raciel Conley, by telephone. 05/28/2018 I personally evaluated the patient in room 1309. She remains ventilated. She does move her head about. 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 She has been vomiting around her nasogastric tube which is disconcerting as I cannot explain why a normally functioning G-tube would not prevent vomiting around it. Plain x-ray of the chest was evaluated I see no evidence of pneumonia abdominal x-ray shows no gastric distention and a normal bowel gas pattern no signs of obstruction. I would prefer that her feeding jejunostomy be used only for tube feeding and flushes and not for medications as this only potentially leads to occlusion of the feeding jejunostomy. This is her only access for enteral nutrition. Antibiotic therapy should be directed towards the results from cultures. A contrast study through her nasogastric tube could be performed to ensure patency of the tube as well as her new gastrojejunostomy. I discussed her case with her daughter Raciel Conley. While I see no evidence of postsurgical complication, and 82 years old with multiple autoimmune issues recovery from her GI bleed and surgical interventions can take longer than we would wish. Continue current supportive therapy.
[2018-05-28] MEDS: LINEZOLID IV.SIG SCH ×2 (10:45→22:39)
[2018-05-28] MEDS: MethylPREDNISolone Sod Succinate Inj 125 MG/2 ML Vial IV.PUSH SCH (10:45)
[2018-05-28] MEDS: DEXTROSE IV.SIG SCH ×2 (10:45→22:39)
[2018-05-28] MEDS: Aztreonam Inj 2 GM in Sodium Chloride 0.9% Inj 100 ML IV.SIG SCH ×2 (10:45→20:00)
[2018-05-28] MEDS: metroNIDAZOLE 500 MG Tablet J-TUBE SCH ×3 (10:45→22:38)
--- NOTE | 2018-05-28 14:44 | P.PNONC ---
Subjective Interval history: Fevers, T-max 101.9. Remains intubated and sedated. Per RN pt had an episode of projectile foul smelling vomit. Remains with dark maroon colored stool in rectal bag. Objective Vital Signs/Intake & Output: Vital Signs 05/27/18 14:45 05/27/18 15:00 05/27/18 15:15 Temperature Pulse Rate 107 H 107 H 107 H Respiratory Rate 18 Blood Pressure 129/60 129/63 129/58 L Pulse Oximetry 96 95 96 05/27/18 15:30 05/27/18 15:45 05/27/18 16:00 Temperature 99.1 F Pulse Rate 108 H 109 H 107 H Respiratory Rate 18 Blood Pressure 131/62 131/63 130/62 Pulse Oximetry 95 95 96 05/27/18 16:15 05/27/18 16:30 05/27/18 16:45 Temperature Pulse Rate 110 H 112 H 111 H Respiratory Rate Blood Pressure 125/59 L 122/57 L 126/58 L Pulse Oximetry 94 L 93 L 94 L 05/27/18 17:00 05/27/18 17:15 05/27/18 17:30 Temperature Pulse Rate 110 H 107 H 116 H Respiratory Rate 21 Blood Pressure 122/58 L 121/58 L 122/56 L Pulse Oximetry 93 L 91 L 94 L 05/27/18 17:36 05/27/18 17:45 05/27/18 18:00 Temperature Pulse Rate 108 H 109 H Respiratory Rate 23 22 Blood Pressure 116/58 L 119/56 L Pulse Oximetry 96 90 L 95 05/27/18 18:15 05/27/18 18:30 05/27/18 21:01 Temperature Pulse Rate 107 H 112 H Respiratory Rate 21 Blood Pressure 118/59 L 129/58 L Pulse Oximetry 97 98 96 05/27/18 21:30 05/27/18 21:45 05/27/18 22:00 Temperature 100.4 F H Pulse Rate 108 H 107 H 109 H Respiratory Rate Blood Pressure 134/55 L 127/60 135/58 L Pulse Oximetry 96 96 97 05/27/18 22:15 05/27/18 22:30 05/27/18 22:45 Temperature Pulse Rate 106 H 106 H 112 H Respiratory Rate Blood Pressure 132/60 136/62 139/64 Pulse Oximetry 96 97 97 05/27/18 23:00 05/27/18 23:15 05/27/18 23:30 Temperature Pulse Rate 106 H 106 H 110 H Respiratory Rate Blood Pressure 137/58 L 131/60 147/65 H Pulse Oximetry 97 97 98 05/27/18 23:45 05/28/18 00:00 05/28/18 00:15 Temperature 101.9 F H Pulse Rate 112 H 113 H 107 H Respiratory Rate Blood Pressure 141/65 H 141/63 H 144/66 H Pulse Oximetry 98 98 97 05/28/18 00:30 05/28/18 00:32 05/28/18 00:45 Temperature Pulse Rate 106 H 111 H Respiratory Rate 20 Blood Pressure 127/54 L 129/60 Pulse Oximetry 98 98 97 05/28/18 01:00 05/28/18 01:15 05/28/18 01:30 Temperature Pulse Rate 106 H 105 H 101 H Respiratory Rate Blood Pressure 132/62 131/62 129/61 Pulse Oximetry 97 97 97 05/28/18 01:45 05/28/18 02:00 05/28/18 02:15 Temperature Pulse Rate 101 H 102 H 105 H Respiratory Rate Blood Pressure 127/61 127/60 133/61 Pulse Oximetry 97 97 97 05/28/18 02:30 05/28/18 02:45 05/28/18 03:00 Temperature Pulse Rate 112 H 114 H 106 H Respiratory Rate Blood Pressure 136/63 141/65 H 125/62 Pulse Oximetry 97 97 97 05/28/18 03:15 05/28/18 03:30 05/28/18 03:45 Temperature Pulse Rate 110 H 112 H 116 H Respiratory Rate Blood Pressure 136/63 145/67 H 141/65 H Pulse Oximetry 97 97 97 05/28/18 04:00 05/28/18 04:15 05/28/18 04:30 Temperature 99.2 F Pulse Rate 112 H 118 H 116 H Respiratory Rate Blood Pressure 142/65 H 139/64 144/66 H Pulse Oximetry 97 97 97 05/28/18 04:45 05/28/18 05:00 05/28/18 05:15 Temperature Pulse Rate 118 H 114 H 113 H Respiratory Rate Blood Pressure 140/65 140/56 L Pulse Oximetry 97 97 97 05/28/18 05:16 05/28/18 05:30 05/28/18 05:45 Temperature Pulse Rate 109 H 106 H Respiratory Rate 22 Blood Pressure Pulse Oximetry 97 96 97 05/28/18 06:00 05/28/18 06:08 05/28/18 06:15 Temperature Pulse Rate 108 H 106 H 105 H Respiratory Rate Blood Pressure 122/58 L 125/59 L Pulse Oximetry 97 97 96 05/28/18 06:30 05/28/18 06:45 05/28/18 07:00 Temperature Pulse Rate 107 H 103 H 103 H Respiratory Rate Blood Pressure 121/58 L 122/58 L 130/60 Pulse Oximetry 96 96 96 05/28/18 07:15 05/28/18 07:30 05/28/18 07:45 Temperature Pulse Rate 104 H 104 H 107 H Respiratory Rate Blood Pressure 129/62 130/63 130/64 Pulse Oximetry 96 96 97 05/28/18 08:00 05/28/18 08:15 05/28/18 08:23 Temperature 100.5 F H Pulse Rate 109 H 109 H 110 H Respiratory Rate 22 Blood Pressure 128/61 134/64 Pulse Oximetry 97 97 98 05/28/18 08:30 05/28/18 08:45 05/28/18 09:00 Temperature Pulse Rate 108 H 111 H 108 H Respiratory Rate Blood Pressure 129/58 L 137/65 136/66 Pulse Oximetry 97 97 97 05/28/18 09:15 05/28/18 09:30 05/28/18 09:45 Temperature Pulse Rate 118 H 117 H 117 H Respiratory Rate Blood Pressure 148/68 H 159/77 H 156/75 H Pulse Oximetry 97 98 97 05/28/18 10:00 05/28/18 10:15 05/28/18 10:30 Temperature Pulse Rate 119 H 120 H 115 H Respiratory Rate Blood Pressure 158/72 H 163/77 H 146/63 H Pulse Oximetry 96 97 95 05/28/18 10:45 05/28/18 11:00 05/28/18 11:07 Temperature Pulse Rate 122 H 122 H Respiratory Rate 14 Blood Pressure 153/72 H 151/70 H Pulse Oximetry 97 98 96 05/28/18 11:15 05/28/18 11:30 05/28/18 11:45 Temperature Pulse Rate 120 H 115 H 110 H Respiratory Rate Blood Pressure 137/61 145/66 H 140/62 Pulse Oximetry 97 96 97 05/28/18 12:00 05/28/18 12:15 05/28/18 12:30 Temperature Pulse Rate 109 H 108 H 104 H Respiratory Rate Blood Pressure 139/63 153/70 H 138/59 L Pulse Oximetry 97 98 97 05/28/18 12:45 05/28/18 13:00 05/28/18 13:15 Temperature Pulse Rate 104 H 105 H 111 H Respiratory Rate Blood Pressure 135/63 143/65 H 153/69 H Pulse Oximetry 97 97 98 05/28/18 13:30 05/28/18 13:45 05/28/18 14:00 Temperature Pulse Rate 110 H 108 H 110 H Respiratory Rate Blood Pressure 157/72 H 146/69 H 154/70 H Pulse Oximetry 98 98 98 Intake & Output 05/27/18 05/28/18 05/28/18 18:59 06:59 18:59 Intake Total 1258 / 1258 1359 / 1359 235 / 235 Output Total 1979 / 1979 2685 / 2685 Balance -722 / -722 -1326 / -1326 235 / 235 Weight 80.9 kg Intake: IV 600 / 600 800 / 800 235 / 235 Cleviprex Inj 25 mg In 50 ml @ 300 / 300 250 / 250 35 / 35 1 MG/HR 2 mls/hr IV.CONT TITRATE PRN Rx#:[id number] Protonix Inj 80 MG In NS Inj 100 / 100 200 / 200 100 / 100 100 ML @ 10 mls/hr IV.CONT Q10H VALERY Rx#:[id number] Azactam Inj 2 GM In NS Inj 100 100 / 100 ML @ 200 mls/hr IV.SIG Q8H VALERY Rx#:[id number] KCl 40 mEq Premix Inj 40 meq In 200 / 200 100 / 100 100 ml @ 25 mls/hr IV.SIG UNSCH PRN Rx#:[id number] fentaNYL 10 mcg/mL Premix Drip 250 / 250 2,500 mcg In 250 ml @ 50 MCG/HR 5 mls/hr IV.SIG TITRATE PRN Rx #:[id number] Tube Feeding 508 / 508 559 / 559 Tube Irrigant 150 / 150 Output: Stool 100 / 100 50 / 50 Urine Amount (Catheter) 1350 / 1350 1999 Indwelling Urethral Catheter 1350 / 1350 1999 Gastric Drainage 450 / 450 575 / 575 Right Nare Nasogastric Tube 450 / 450 575 / 575 Wound Drainage 80 / 80 60 / 60 # 2 Left Abdomen 80 / 80 60 / 60 Result Diagrams: 05/28/18 05:38 05/28/18 05:38 Laboratory Results: Laboratory Results - last 24 hr 05/27/18 05/28/18 05/28/18 16:30 05:38 05:38 WBC 21.5 H RBC 3.32 L Hgb 9.8 L Hct 29.6 L MCV 89.1 MCH 29.4 MCHC 33.0 RDW 16.1 Plt Count 127 L MPV 9.5 Neut % (Auto) 95.9 H Lymph % (Auto) 0.9 L [place] % (Auto) 3.1 Eos % (Auto) 0.0 Baso % (Auto) 0.1 Neut # (Auto) 20.6 H Lymph # (Auto) 0.2 L [place] # (Auto) 0.7 Eos # (Auto) 0.0 Baso # (Auto) 0.0 WBC Differential . Differential Comment Auto diff final Sodium 157 H* Potassium 3.4 L 3.7 Chloride 120 H Carbon Dioxide 28.7 Anion Gap 8 BUN 59 H Creatinine 1.16 H Estimated GFR 45 L Random Glucose 136 H Calcium 9.0 Total Bilirubin 1.1 H AST 46 H ALT 67 H Alkaline Phosphatase 79 Total Protein 6.1 L Albumin 3.2 L Culture Results: Microbiology 05/27/18 09:13 Gram Stain - Final Sputum - Endotracheal Sputum Culture - Preliminary gram negative rods Staphylococcus aureus Imaging Studies: Impressions Chest X-Ray 05/28/18 00:00 CONCLUSION: Underinflation with minimal bibasilar opacity most likely representing atelectasis. This finding is improved since the 05/25/2018 examination. There are no findings to suggest aspiration. Abdomen X-Ray 05/28/18 05:23 CONCLUSION: No dilated bowel loops. Medications: Active Medications Generic Name Dose Route Start Last Admin Trade Name Freq PRN Reason Stop Dose Admin Acetaminophen 650 mg 05/17/18 06:10 05/28/18 00:00 Tylenol PO 650 mg Q4H PRN Administration Temp > 100.4 Hydrocodone Bitart/Acetaminophen 1 tab 05/19/18 10:01 05/19/18 13:15 [place] 5/325 PO 1 tab Q6H PRN Administration Pain 2-5 Hydrocodone Bitart/Acetaminophen 1 tab 05/19/18 10:01 05/19/18 20:10 [place] 10/325 PO 1 tab Q6H PRN Administration Pain 6-10 Albuterol 2.5 mg 05/21/18 23:28 05/28/18 08:20 Albuterol Neb (Prn) NEB 2.5 mg Q2HR NEB PRN Administration WHEEZING Amlodipine Besylate 5 mg 05/26/18 10:00 05/28/18 09:32 Norvasc J-TUBE 5 mg DAILY VALERY Administration Artificial Tears 1 applicatio 05/22/18 21:00 05/28/18 09:32 Lacrilube Opth Oint EACH EYE 1 applicatio BID VALERY Administration Clonidine HCl 0.1 mg 05/26/18 11:24 05/26/18 23:31 Catapres PO 0.1 mg Q6H PRN Administration SBP>160, DBP>90 Fentanyl Citrate 100 mcg 05/23/18 10:59 05/23/18 11:12 Fentanyl Inj IV.PUSH 100 mcg Q1H PRN Administration Any pain Heparin Sodium (Porcine) 0 unit 05/21/18 09:00 05/28/18 09:33 Heparin Central Flush IV.FLUSH Not Given DAILY VALERY Hydralazine HCl 10 mg 05/23/18 00:24 05/27/18 01:56 Apresoline Inj IV.PUSH 10 mg Q1H PRN Administration Sbp>165, Dbp>90 Hydromorphone HCl 2 mg 05/19/18 21:41 05/26/18 02:26 Dilaudid Pf Inj IV.PUSH 2 mg Q4H PRN Administration PAIN SCALE 6 -10 Pantoprazole Sodium 80 mg/ 100 mls @ 10 mls/hr 05/17/18 09:00 05/28/18 14:10 Sodium Chloride IV.CONT 10 mls/hr Q10H VALERY Administration Sodium Chloride 500 mls @ 30 mls/hr 05/18/18 07:00 05/18/18 07:00 Ns Inj IV.SIG Not Given .Q10H VALERY Fentanyl 2,500 mcg in 250 mls @ 5 mls/hr 05/20/18 20:00 05/28/18 08:00 Fentanyl 10 Mcg/Ml Premix Drip IV.SIG 0 mcg/hr TITRATE PRN 0 mls/hr Per Protocol Titration Protocol 50 MCG/HR Potassium Chloride 40 meq in 100 mls @ 25 mls/hr 05/22/18 22:43 05/27/18 11: 02 Kcl 40 Meq Premix Inj IV.SIG Infused Q2H PRN Infusion For Potassium 2.8 - 3.2 mEq/L Potassium Chloride 40 meq in 100 mls @ 25 mls/hr 05/22/18 22:43 05/28/18 00: 32 Kcl 40 Meq Premix Inj IV.SIG Infused UNSCH PRN Infusion For Potassium 3.3 - 3.5 mEq/L Potassium Phosphate 30 mmol/ 260 mls @ 42 mls/hr 05/22/18 22:43 05/23/18 12: 57 Sodium Chloride IV.SIG Infused UNSCH PRN Infusion SEE LABEL COMMENTS Propofol 1,000 mg in 100 mls @ 2.922 mls/hr 05/23/18 11:00 05/26/18 10:35 Diprivan 1000 Mg/100 Ml Inj IV.CONT 0 mcg/kg/min TITRATE PRN 0 mls/hr Per Protocol Titration Protocol 5 MCG/KG/MIN Clevidipine 25 mg in 50 mls @ 2 mls/hr 05/26/18 11:23 05/28/18 09:00 Cleviprex Inj IV.CONT Infused TITRATE PRN Titration Per protocol Protocol 1 MG/HR Aztreonam 2 gm/ Sodium 100 mls @ 200 mls/hr 05/28/18 10:00 05/28/18 11:15 Chloride IV.SIG Infused Q8H VALERY Infusion Labetalol HCl 20 mg 05/26/18 07:44 05/27/18 03:30 Trandate Inj IV.PUSH 20 mg Q2H PRN Administration KEEP SBP<160 Lidocaine HCl 2 patch 05/19/18 09:30 05/28/18 09:32 Lidoderm 5% Patch.12 Hr T-DERMAL 2 patch DAILY VALERY Administration Linezolid 600 mg 05/28/18 10:00 05/28/18 10:45 Zyvox 600 Mg Premix IV.SIG 600 mg Q12H VALERY Administration Methylprednisolone Sodium Succinate 40 mg 05/28/18 10:00 05/28/18 10:45 Solumedrol Inj IV.PUSH 40 mg Q24H VALERY Administration Metronidazole 500 mg 05/28/18 09:30 05/28/18 13:28 Flagyl J-TUBE 500 mg Q8HR VALERY Administration Ondansetron HCl 4 mg 05/17/18 06:10 05/28/18 05:13 Zofran Inj IV.PUSH 4 mg Q6H PRN Administration NAUSEA OR VOMITING Patch Removal 1 each 05/19/18 21:00 05/28/18 09:33 Remove Old Patch T-DERMAL 1 each BID VALERY Administration Potassium Bicarb/Potassium Chloride 25 meq 05/26/18 21:00 05/28/18 09:33 K-Lyte Cl Eff NG/OG 25 meq BID VALERY Administration Prochlorperazine Edisylate 10 mg 05/17/18 09:06 05/19/18 00:08 Compazine Inj IV.PUSH 10 mg Q6H PRN Administration NAUSEA Senna/Docusate Sodium 1 tab 05/17/18 09:00 05/28/18 09:33 Jessie-Colace PO Not Given BID VALERY Sodium Chloride 0 ml 05/21/18 09:00 05/28/18 09:33 Ns Flush IV.FLUSH 5 ml DAILY VALERY Administration Sodium Chloride 0 ml 05/20/18 16:43 05/26/18 01:39 Ns Flush IV.FLUSH 2 ml PRN PRN Administration FLUSH AFTER USING IV ACCESS Sterile Water 100 ml 05/28/18 12:00 05/28/18 12:21 Free Water J-TUBE 100 ml Q4HR VALERY Administration Objective Remarks: GENERAL: Critically ill-appearing female patient. +Intubated. SKIN: Warm and dry. HEAD: Normocephalic. EYES: No scleral icterus. No injection or drainage. NECK: Supple, trachea midline. CARDIOVASCULAR: Tachycardic. RESPIRATORY: Rhonchi and crackles throughout. FiO2 45%. GASTROINTESTINAL: Abdomen large, binder in place, drain with minimal fluid. EXTREMITIES: +anasarca. NEUROLOGICAL: Sedated, appears to be biting ET tube. Assessment/Plan - Plan Ms. Perea is a pleasant 82-year-old lady with a history of lung cancer, multifocal amyloidosis, lymphomoplasmacytic disorder and now gastrointestinal bleeding. Plan: 1. Thrombocytopenia, platelets continue to increase, 127,000 today. Solu- Medrol being tapered at this time. 2. Critical care management, per [facility]. 3. Fevers, increase in WBC. Blood cultures pending, sputum culture MRSA. On antibiotics.
[2018-05-28] MEDS ORDERED: Magnesium Sulfate Inj 2 GM in Sodium Chlor 0.9% Inj 96 ML IV.SIG ONE (16:00)
[2018-05-28] MEDS: Potassium Chlor 20 mEq Premix 20 MEQ/100 ML PIGGYBACK IV.SIG SCH ×2 (16:11→18:16)
[2018-05-28] MEDS: hydrALAZINE HCl Inj 20 MG/ML Vial IV.PUSH PRN (16:12)
[2018-05-28] MEDS: Acetaminophen 325 MG Tablet PO PRN ×2 (16:28)
--- NOTE | 2018-05-28 17:05 | P.CONID ---
History of Present Illness Service: ID Consult date: 05/28/18 Requesting Physician: Manohar Joyce Reason for Consult: sepsis Primary Care Provider: UNKNOWN Chief Complaint: gi bleeding History of Present Illness: pt unable to provide history HIstory was obtained from the chart 82 yo female with history of amyloidosis who presented 1 week ago with GI bleeding, hypotension, and severe anemia. CT abd/pelvis demonstrates possible bleeding at duodenal bulb concerning for ulceration sp successful. IR embolization She con to bleed and on 05/21underwent exploratory laparotomy pT remains Sedated, orally intubated on mech vent. she Failed CPAP trial earlier. 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 - Surgical History Surgical History: Surgical History (Last Reviewed 05/28/18 @ 16:46 by Abbie Dhillon MD) History of heart artery stent Status post lobectomy of lung - Family History Family History: Family History (Last Reviewed 05/28/18 @ 16:46 by Abbie Dhillon MD) Other Osteoarthritis - Social History I have reviewed the patient's Social History: Yes - Tobacco History Second Hand Smoke Exposure: No Tobacco Use In Past 30 Days: No Smoking Status: Former smoker Tobacco Type: Cigarettes - Alcohol History How Often Do You Have a Drink Containing Alcohol: Never - Substance Use History Substance History: No History of Abuse - Travel History Recent Travel in the [place] Within the Last 8 Weeks: No Recent Travel Out of the Country Within the Last 8 Weeks: No - Immunization History Tetanus Immunization: <5 Years Hx Influenza Vaccine This Season: No Medications and Allergies Active Medications: Active Medications Acetaminophen (Tylenol) 650 mg PO Q4H PRN PRN Reason: Temp > 100.4 Last Admin: 05/28/18 16:28 Dose: 650 mg Hydrocodone Bitart/Acetaminophen (Mackey 5/325) 1 tab PO Q6H PRN PRN Reason: Pain 2-5 Last Admin: 05/19/18 13:15 Dose: 1 tab Hydrocodone Bitart/Acetaminophen (Mackey 10/325) 1 tab PO Q6H PRN PRN Reason: Pain 6-10 Last Admin: 05/19/18 20:10 Dose: 1 tab Al Hydroxide/Mg Hydroxide (Milk Of Dotty Meier) 30 ml PO Q12H PRN PRN Reason: Mild Constipation Albuterol (Albuterol Neb (Prn)) 2.5 mg NEB Q2HR NEB PRN PRN Reason: WHEEZING Last Admin: 05/28/18 08:20 Dose: 2.5 mg Amlodipine Besylate (Norvasc) 5 mg J-TUBE DAILY [facility] Last Admin: 05/28/18 09:32 Dose: 5 mg Artificial Tears (Lacrilube Opth Oint) 1 applicatio EACH EYE BID [facility] Last Admin: 05/28/18 09:32 Dose: 1 applicatio Bisacodyl (Dulcolax Supp) 10 mg RECTAL DAILY PRN PRN Reason: SEVERE CONSITIPATION Clonidine HCl (Catapres) 0.1 mg PO Q6H PRN PRN Reason: SBP>160, DBP>90 Last Admin: 05/26/18 23:31 Dose: 0.1 mg Fentanyl Citrate (Fentanyl Inj) 100 mcg IV.PUSH Q1H PRN PRN Reason: Any pain Last Admin: 05/23/18 11:12 Dose: 100 mcg Furosemide (Lasix Inj) 20 mg IV.PUSH Q12H [facility] Heparin Sodium (Porcine) (Heparin Central Flush) 0 unit IV.FLUSH DAILY [facility] Last Admin: 05/28/18 09:33 Dose: Not Given Heparin Sodium (Porcine) (Heparin Central Flush) 0 unit IV.FLUSH PRN PRN PRN Reason: Flush PICC Line Hydralazine HCl (Apresoline Inj) 10 mg IV.PUSH Q1H PRN PRN Reason: Sbp>165, Dbp>90 Last Admin: 05/28/18 16:12 Dose: 10 mg Hydromorphone HCl (Dilaudid Pf Inj) 2 mg IV.PUSH Q4H PRN PRN Reason: PAIN SCALE 6 -10 Last Admin: 05/26/18 02:26 Dose: 2 mg Pantoprazole Sodium 80 mg/ (Sodium Chloride) 100 mls @ 10 mls/hr IV.CONT Q10H [facility] Last Admin: 05/28/18 14:10 Dose: 10 mls/hr Sodium Chloride (Ns Inj) 500 mls @ 30 mls/hr IV.SIG .Q10H [facility] Last Admin: 05/18/18 07:00 Dose: Not Given Fentanyl (Fentanyl 10 Mcg/Ml Premix Drip) 2,500 mcg in 250 mls @ 5 mls/hr IV.SIG TITRATE PRN; Protocol PRN Reason: Per Protocol Last Titration: 05/28/18 08:00 Dose: 0 mcg/hr, 0 mls/hr Magnesium Sulfate 4 gm/ Sodium (Chloride) 100 mls @ 50 mls/hr IV.SIG UNSCH PRN PRN Reason: For Magnesium 0.9 - 1.1 mg/dL Magnesium Sulfate 2 gm/ Sodium (Chloride) 100 mls @ 50 mls/hr IV.SIG UNSCH PRN PRN Reason: For Magnesium 1.2 - 1.6 mg/dL Potassium Chloride (Kcl 40 Meq Premix Inj) 40 meq in 100 mls @ 25 mls/hr IV.SIG Q2H PRN PRN Reason: For Potassium 2.8 - 3.2 mEq/L Last Infusion: 05/27/18 11:02 Dose: Infused Potassium Chloride (Kcl 20 Meq Premix Inj) 20 meq in 100 mls @ 50 mls/hr IV.SIG Q2H PRN PRN Reason: For Potassium 3.3 - 3.5 mEq/L Potassium Chloride (Kcl 40 Meq Premix Inj) 40 meq in 100 mls @ 25 mls/hr IV.SIG UNSCH PRN PRN Reason: For Potassium 3.3 - 3.5 mEq/L Last Infusion: 05/28/18 00:32 Dose: Infused Potassium Chloride (Kcl 20 Meq Premix Inj) 20 meq in 100 mls @ 50 mls/hr IV.SIG Q2H PRN PRN Reason: For Potassium 2.8 - 3.2 mEq/L Potassium Phosphate 30 mmol/ (Sodium Chloride) 260 mls @ 42 mls/hr IV.SIG UNSCH PRN PRN Reason: SEE LABEL COMMENTS Last Infusion: 05/23/18 12:57 Dose: Infused Sodium Phosphate 30 mmol/ (Sodium Chloride) 260 mls @ 42 mls/hr IV.SIG UNSCH PRN PRN Reason: For Phosphorus < 2.5 mg/dL Propofol (Diprivan 1000 Mg/100 Ml Inj) 1,000 mg in 100 mls @ 2.922 mls/hr IV.CONT TITRATE PRN; Protocol PRN Reason: Per Protocol Last Titration: 05/26/18 10:35 Dose: 0 mcg/kg/min, 0 mls/hr Clevidipine (Cleviprex Inj) 25 mg in 50 mls @ 2 mls/hr IV.CONT TITRATE PRN; Protocol PRN Reason: Per protocol Last Titration: 05/28/18 09:00 Dose: Infused Aztreonam 2 gm/ Sodium (Chloride) 100 mls @ 200 mls/hr IV.SIG Q8H [facility] Last Infusion: 05/28/18 11:15 Dose: Infused Potassium Chloride (Kcl 20 Meq Premix Inj) 20 meq in 100 mls @ 50 mls/hr IV.SIG Q2H [facility] Stop: 05/28/18 19:59 Last Admin: 05/28/18 16:11 Dose: 50 mls/hr Magnesium Sulfate 2 gm/ Sodium (Chloride) 100 mls @ 50 mls/hr IV.SIG ONCE ONE Stop: 05/28/18 17:59 Last Admin: 05/28/18 16:33 Dose: 50 mls/hr Labetalol HCl (Trandate Inj) 20 mg IV.PUSH Q2H PRN PRN Reason: KEEP SBP<160 Last Admin: 05/27/18 03:30 Dose: 20 mg Lactulose (Lactulose Liq) 30 ml PO DAILY PRN PRN Reason: SEVERE CONSITIPATION Lidocaine HCl (Lidoderm 5% Patch.12 Hr) 2 patch T-DERMAL DAILY [facility] Last Admin: 05/28/18 09:32 Dose: 2 patch Linezolid (Zyvox 600 Mg Premix) 600 mg IV.SIG Q12H [facility] Last Admin: 05/28/18 10:45 Dose: 600 mg Magnesium Oxide (Mag-Ox) 800 mg PO UNSCH PRN PRN Reason: For Magnesium 1.2 - 1.6 mg/dL Methylprednisolone Sodium Succinate (Solumedrol Inj) 40 mg IV.PUSH Q24H [facility] Last Admin: 05/28/18 10:45 Dose: 40 mg Metronidazole (Flagyl) 500 mg J-TUBE Q8HR [facility] Last Admin: 05/28/18 13:28 Dose: 500 mg Ondansetron HCl (Zofran Inj) 4 mg IV.PUSH Q6H PRN PRN Reason: NAUSEA OR VOMITING Last Admin: 05/28/18 05:13 Dose: 4 mg Patch Removal (Remove Old Patch) 1 each T-DERMAL BID [facility] Last Admin: 05/28/18 09:33 Dose: 1 each Potassium Bicarb/Potassium Chloride (K-Lyte Cl Eff) 50 meq PO UNSCH PRN PRN Reason: For Potassium 3.3 - 3.5 mEq/L Potassium Bicarb/Potassium Chloride (K-Lyte Cl Eff) 25 meq NG/OG BID [facility] Last Admin: 05/28/18 09:33 Dose: 25 meq Potassium Phosphate (K-Phos Original) 2,000 mg PO Q4H PRN PRN Reason: Phosphorus Less Than 2.5 mg/dL Potassium Phosphate (K-Phos Original) 2,000 mg PO UNSCH PRN PRN Reason: SEE LABEL COMMENTS Prochlorperazine Edisylate (Compazine Inj) 10 mg IV.PUSH Q6H PRN PRN Reason: NAUSEA Last Admin: 05/19/18 00:08 Dose: 10 mg Senna/Docusate Sodium (Jessie-Colace) 1 tab PO BID [facility] Last Admin: 05/28/18 09:33 Dose: Not Given Sennosides (Senokot) 17.2 mg PO Q12H PRN PRN Reason: Moderate Constipation Sodium Chloride (Ns Flush) 0 ml IV.FLUSH DAILY [facility] Last Admin: 05/28/18 09:33 Dose: 5 ml Sodium Chloride (Ns Flush) 0 ml IV.FLUSH PRN PRN PRN Reason: FLUSH AFTER USING IV ACCESS Last Admin: 05/26/18 01:39 Dose: 2 ml Sodium Chloride (Ns Flush) 0 ml IV.FLUSH PRN PRN PRN Reason: Flush After Blood Draws Sterile Water (Free Water) 100 ml J-TUBE Q4HR [facility] Last Admin: 05/28/18 16:11 Dose: 100 ml Allergies Allergy/AdvReac Type Severity Reaction Status Date / Time Sulfa (Sulfonamide Allergy Severe Anaphylaxis Verified 05/17/18 03:34 Antibiotics) amoxicillin Allergy Mild nausea Verified 05/17/18 03:34 codeine Allergy Mild constipatio Verified 05/17/18 03:34 n Home Medications Medication Instructions Recorded Confirmed Type amlodipine 5 mg PO DAILY 03/17/18 05/17/18 History aspirin [Aspirin Low Dose] 1 tab PO DAILY 03/17/18 05/17/18 History finasteride 1 mg PO DAILY 03/17/18 05/17/18 History isosorbide mononitrate 30 mg PO DAILY 03/17/18 05/17/18 History pantoprazole 20 mg PO BID 03/18/18 05/17/18 History hydrocodone-acetaminophen 1 tab PO Q4-6H PRN 05/17/18 05/17/18 History lisinopril 10 mg PO DAILY 05/17/18 05/17/18 History Exam Vital signs: Vital Signs 05/27/18 16:45 05/27/18 17:00 05/27/18 17:15 Temperature Pulse Rate 111 H 110 H 107 H Respiratory Rate 21 Blood Pressure 126/58 L 122/58 L 121/58 L Pulse Oximetry 94 L 93 L 91 L 05/27/18 17:30 05/27/18 17:36 05/27/18 17:45 Temperature Pulse Rate 116 H 108 H Respiratory Rate 23 Blood Pressure 122/56 L 116/58 L Pulse Oximetry 94 L 96 90 L 05/27/18 18:00 05/27/18 18:15 05/27/18 18:30 Temperature Pulse Rate 109 H 107 H 112 H Respiratory Rate 22 Blood Pressure 119/56 L 118/59 L 129/58 L Pulse Oximetry 95 97 98 05/27/18 21:01 05/27/18 21:30 05/27/18 21:45 Temperature 100.4 F H Pulse Rate 108 H 107 H Respiratory Rate 21 Blood Pressure 134/55 L 127/60 Pulse Oximetry 96 96 96 05/27/18 22:00 05/27/18 22:15 05/27/18 22:30 Temperature Pulse Rate 109 H 106 H 106 H Respiratory Rate Blood Pressure 135/58 L 132/60 136/62 Pulse Oximetry 97 96 97 05/27/18 22:45 05/27/18 23:00 05/27/18 23:15 Temperature Pulse Rate 112 H 106 H 106 H Respiratory Rate Blood Pressure 139/64 137/58 L 131/60 Pulse Oximetry 97 97 97 05/27/18 23:30 05/27/18 23:45 05/28/18 00:00 Temperature 101.9 F H Pulse Rate 110 H 112 H 113 H Respiratory Rate Blood Pressure 147/65 H 141/65 H 141/63 H Pulse Oximetry 98 98 98 05/28/18 00:15 05/28/18 00:30 05/28/18 00:32 Temperature Pulse Rate 107 H 106 H Respiratory Rate 20 Blood Pressure 144/66 H 127/54 L Pulse Oximetry 97 98 98 05/28/18 00:45 05/28/18 01:00 05/28/18 01:15 Temperature Pulse Rate 111 H 106 H 105 H Respiratory Rate Blood Pressure 129/60 132/62 131/62 Pulse Oximetry 97 97 97 05/28/18 01:30 05/28/18 01:45 05/28/18 02:00 Temperature Pulse Rate 101 H 101 H 102 H Respiratory Rate Blood Pressure 129/61 127/61 127/60 Pulse Oximetry 97 97 97 05/28/18 02:15 05/28/18 02:30 05/28/18 02:45 Temperature Pulse Rate 105 H 112 H 114 H Respiratory Rate Blood Pressure 133/61 136/63 141/65 H Pulse Oximetry 97 97 97 05/28/18 03:00 05/28/18 03:15 05/28/18 03:30 Temperature Pulse Rate 106 H 110 H 112 H Respiratory Rate Blood Pressure 125/62 136/63 145/67 H Pulse Oximetry 97 97 97 05/28/18 03:45 05/28/18 04:00 05/28/18 04:15 Temperature 99.2 F Pulse Rate 116 H 112 H 118 H Respiratory Rate Blood Pressure 141/65 H 142/65 H 139/64 Pulse Oximetry 97 97 97 05/28/18 04:30 05/28/18 04:45 05/28/18 05:00 Temperature Pulse Rate 116 H 118 H 114 H Respiratory Rate Blood Pressure 144/66 H 140/65 140/56 L Pulse Oximetry 97 97 97 05/28/18 05:15 05/28/18 05:16 05/28/18 05:30 Temperature Pulse Rate 113 H 109 H Respiratory Rate 22 Blood Pressure Pulse Oximetry 97 97 96 05/28/18 05:45 05/28/18 06:00 05/28/18 06:08 Temperature Pulse Rate 106 H 108 H 106 H Respiratory Rate Blood Pressure 122/58 L Pulse Oximetry 97 97 97 05/28/18 06:15 05/28/18 06:30 05/28/18 06:45 Temperature Pulse Rate 105 H 107 H 103 H Respiratory Rate Blood Pressure 125/59 L 121/58 L 122/58 L Pulse Oximetry 96 96 96 05/28/18 07:00 05/28/18 07:15 05/28/18 07:30 Temperature Pulse Rate 103 H 104 H 104 H Respiratory Rate Blood Pressure 130/60 129/62 130/63 Pulse Oximetry 96 96 96 05/28/18 07:45 05/28/18 08:00 05/28/18 08:15 Temperature 100.5 F H Pulse Rate 107 H 109 H 109 H Respiratory Rate Blood Pressure 130/64 128/61 134/64 Pulse Oximetry 97 97 97 05/28/18 08:23 05/28/18 08:30 05/28/18 08:45 Temperature Pulse Rate 110 H 108 H 111 H Respiratory Rate 22 Blood Pressure 129/58 L 137/65 Pulse Oximetry 98 97 97 05/28/18 09:00 05/28/18 09:15 05/28/18 09:30 Temperature Pulse Rate 108 H 118 H 117 H Respiratory Rate Blood Pressure 136/66 148/68 H 159/77 H Pulse Oximetry 97 97 98 05/28/18 09:45 05/28/18 10:00 05/28/18 10:15 Temperature Pulse Rate 117 H 119 H 120 H Respiratory Rate Blood Pressure 156/75 H 158/72 H 163/77 H Pulse Oximetry 97 96 97 05/28/18 10:30 05/28/18 10:45 05/28/18 11:00 Temperature Pulse Rate 115 H 122 H 122 H Respiratory Rate Blood Pressure 146/63 H 153/72 H 151/70 H Pulse Oximetry 95 97 98 05/28/18 11:07 05/28/18 11:15 05/28/18 11:30 Temperature Pulse Rate 120 H 115 H Respiratory Rate 14 Blood Pressure 137/61 145/66 H Pulse Oximetry 96 97 96 05/28/18 11:45 05/28/18 12:00 05/28/18 12:15 Temperature Pulse Rate 110 H 109 H 108 H Respiratory Rate Blood Pressure 140/62 139/63 153/70 H Pulse Oximetry 97 97 98 05/28/18 12:30 05/28/18 12:45 05/28/18 13:00 Temperature Pulse Rate 104 H 104 H 105 H Respiratory Rate Blood Pressure 138/59 L 135/63 143/65 H Pulse Oximetry 97 97 97 05/28/18 13:15 05/28/18 13:30 05/28/18 13:45 Temperature Pulse Rate 111 H 110 H 108 H Respiratory Rate Blood Pressure 153/69 H 157/72 H 146/69 H Pulse Oximetry 98 98 98 05/28/18 14:00 05/28/18 14:15 05/28/18 14:30 Temperature Pulse Rate 110 H 108 H 112 H Respiratory Rate Blood Pressure 154/70 H 151/68 H 154/69 H Pulse Oximetry 98 98 98 05/28/18 14:45 05/28/18 15:00 05/28/18 15:15 Temperature Pulse Rate 113 H 115 H 115 H Respiratory Rate Blood Pressure 142/63 H 150/69 H 152/70 H Pulse Oximetry 98 98 98 05/28/18 15:30 05/28/18 15:45 05/28/18 15:50 Temperature Pulse Rate 115 H 115 H Respiratory Rate 17 Blood Pressure 151/70 H 153/72 H Pulse Oximetry 98 98 97 05/28/18 16:00 05/28/18 16:15 05/28/18 16:30 Temperature 102.2 F H Pulse Rate 117 H 113 H 117 H Respiratory Rate Blood Pressure 155/69 H 141/65 H 141/64 H Pulse Oximetry 97 97 97 Intake & Output 05/27/18 05/28/18 05/28/18 18:59 06:59 18:59 Intake Total 1258 / 1258 1359 / 1359 235 / 235 Output Total 1979 / 1979 2685 / 2685 Balance -722 / -722 -1326 / -1326 235 / 235 Weight 80.9 kg Intake: IV 600 / 600 800 / 800 235 / 235 Cleviprex Inj 25 mg In 50 ml @ 300 / 300 250 / 250 35 / 35 1 MG/HR 2 mls/hr IV.CONT TITRATE PRN Rx#:[id number] Protonix Inj 80 MG In NS Inj 100 / 100 200 / 200 100 / 100 100 ML @ 10 mls/hr IV.CONT Q10H [facility] Rx#:[id number] Azactam Inj 2 GM In NS Inj 100 100 / 100 ML @ 200 mls/hr IV.SIG Q8H [facility] Rx#:[id number] KCl 40 mEq Premix Inj 40 meq In 200 / 200 100 / 100 100 ml @ 25 mls/hr IV.SIG UNSCH PRN Rx#:[id number] fentaNYL 10 mcg/mL Premix Drip 250 / 250 2,500 mcg In 250 ml @ 50 MCG/HR 5 mls/hr IV.SIG TITRATE PRN Rx #:[id number] Tube Feeding 508 / 508 559 / 559 Tube Irrigant 150 / 150 Output: Stool 100 / 100 50 / 50 Urine Amount (Catheter) 1350 / 1350 1999 Indwelling Urethral Catheter 1350 / 1350 1999 Gastric Drainage 450 / 450 575 / 575 Right Nare Nasogastric Tube 450 / 450 575 / 575 Wound Drainage 80 / 80 60 / 60 # 2 Left Abdomen 80 / 80 60 / 60 - Constitutional no acute distress, obese - Routine HEENT Exam Head: Present: normocephalic, atraumatic Eye: Present: PERRL. Absent: conjunctival icterus ENT: Present: mucous membranes moist, oropharynx clear - Routine Neck Exam Present: supple. Absent: JVD, lymphadenopathy - Routine Respiratory Exam Present: patient mechanically ventilated, CTA bilaterally, rhonchi. Absent: accessory muscle use - Routine Cardiovascular Exam Present: RRR, S1, S2. Absent: murmur, gallop, rubs - Routine Abdominal Exam Present: soft, distended (markedly), wound (with dressing in place). Absent: normoactive bowel sounds (decreased), firm, organomegaly, mass Comments: dignishield in place with maroon stool - Routine Extremities Exam Present: edema. Absent: cyanosis, clubbing - Routine Skin Exam Present: dry, warm. Absent: rash - Routine Neurological Exam sedated - Routine Psychiatric Exam Present: unable to assess Results - Labs CBC & Chem 7: 05/28/18 05:38 05/28/18 05:38 Labs: Laboratory Results - last 24 hr 05/27/18 05/28/18 05/28/18 16:30 05:38 05:38 WBC 21.5 H RBC 3.32 L Hgb 9.8 L Hct 29.6 L MCV 89.1 MCH 29.4 MCHC 33.0 RDW 16.1 Plt Count 127 L MPV 9.5 Neut % (Auto) 95.9 H Lymph % (Auto) 0.9 L [place] % (Auto) 3.1 Eos % (Auto) 0.0 Baso % (Auto) 0.1 Neut # (Auto) 20.6 H Lymph # (Auto) 0.2 L [place] # (Auto) 0.7 Eos # (Auto) 0.0 Baso # (Auto) 0.0 WBC Differential . Differential Comment Auto diff final Sodium 157 H* Potassium 3.4 L 3.7 Chloride 120 H Carbon Dioxide 28.7 Anion Gap 8 BUN 59 H Creatinine 1.16 H Estimated GFR 45 L POC Glucose Random Glucose 136 H Calcium 9.0 Total Bilirubin 1.1 H AST 46 H ALT 67 H Alkaline Phosphatase 79 Total Protein 6.1 L Albumin 3.2 L 05/28/18 15:53 WBC RBC Hgb Hct MCV MCH MCHC RDW Plt Count MPV Neut % (Auto) Lymph % (Auto) [place] % (Auto) Eos % (Auto) Baso % (Auto) Neut # (Auto) Lymph # (Auto) [place] # (Auto) Eos # (Auto) Baso # (Auto) WBC Differential Differential Comment Sodium Potassium Chloride Carbon Dioxide Anion Gap BUN Creatinine Estimated GFR POC Glucose 159 H Random Glucose Calcium Total Bilirubin AST ALT Alkaline Phosphatase Total Protein Albumin - Imaging Impressions Chest X-Ray 05/28/18 00:00 CONCLUSION: Underinflation with minimal bibasilar opacity most likely representing atelectasis. This finding is improved since the 05/25/2018 examination. There are no findings to suggest aspiration. Abdomen X-Ray 05/28/18 05:23 CONCLUSION: No dilated bowel loops. Assessment and Plan - Plan GI bleeding POD3 exploratory laparotomy, gastrojejunostomy, closure, j tube Acute VDRF fever, leukocytosis Suspected gram negative PNA Ileus ? Intraabdominal cont current abx, agree with initial choice add micafungin fu GNB in sputum chk stool for c.diff dw RN @ b/s
[2018-05-28] MEDS: Micafungin Inj 150 MG in Sodium Chlor 0.9% Inj 100 ML IV.SIG SCH (21:06)
[2018-05-28 23:52] LABS: Calcium 7.9 mg/dL (8.5-10.1); Potassium 3.8 meq/L (3.5-5.1); Troponin I 0.11 ng/mL (0.02-0.05)
[2018-05-29] MEDS: Pantoprazole Inj 80 MG in Sodium Chlor 0.9% Inj 100 ML IV.CONT SCH ×3 (00:41→20:40)
[2018-05-29] MEDS: Aztreonam Inj 2 GM in Sodium Chloride 0.9% Inj 100 ML IV.SIG SCH ×3 (02:45→18:04)
[2018-05-29 05:44] LABS: Baso % (Auto) 0.2 % (0.0-2.0); Hematocrit 30.8 % (35.0-46.0); Lymph # (Auto) 0.4 th/mm3 (1.0-4.8); Lymph % (Auto) 1.8 % (9.0-44.0); Mean Corpuscular HGB Conc 32.5 % (32.0-36.0); Mean Corpuscular Hemoglobin 29.1 pg (27.0-34.0); Mean Corpuscular Volume 89.7 fL (80.0-100.0); Mean Platelet Volume 9.4 fL (7.0-11.0); Mono # (Auto) 0.8 th/mm3 (0.0-0.9); Mono % (Auto) 3.6 % (0.0-8.0); Neut # (Auto) 20.7 th/mm3 (1.8-7.7); Neut % (Auto) 94.4 % (16.0-70.0); Platelet Count 108 th/mm3 (150-450); Red Blood Count 3.43 mil/mm3 (4.00-5.30); Red Cell Distribution Width 16.3 % (11.6-17.2)
[2018-05-29] MEDS: metroNIDAZOLE 500 MG Tablet J-TUBE SCH ×3 (06:09→21:46)
[2018-05-29 06:10] LABS: Alanine Aminotransferase 100 U/L (10-53); Albumin 2.7 g/dL (3.4-5.0); Alkaline Phosphatase 90 U/L (45-117); Anion Gap 8 meq/L (5-15); Aspartate Aminotransferase 52 U/L (15-37); Blood Urea Nitrogen 56 mg/dL (7-18); Calcium 8.1 mg/dL (8.5-10.1); Carbon Dioxide 27.8 meq/L (21.0-32.0); Chloride 121 meq/L (98-107); Glomerular Filtration Rate 49 mL/min (>89); Glucose,Random 115 mg/dL (74-106); Potassium 3.7 meq/L (3.5-5.1); Total Protein 6.1 g/dL (6.4-8.2)
[2018-05-29 06:19] LABS: Sodium 157 meq/L (136-145)
[2018-05-29] MEDS: Artificial Tears Opth Oint 3.5 GM Tube EACH EYE SCH ×2 (09:13→20:40)
[2018-05-29] MEDS: Potassium Chloride 25 MEQ Effervescent Tablet NG/OG SCH ×2 (09:13→20:40)
[2018-05-29] MEDS: Heparin Central Flush 100 UNIT/ML 5 ML Vial IV.FLUSH SCH (09:13)
[2018-05-29] MEDS: Senna/Docusate Sodium 8.6/50 MG Tablet PO SCH ×2 (09:14→20:40)
[2018-05-29] MEDS: amLODIPine 5 MG Tablet J-TUBE SCH (09:14)
[2018-05-29] MEDS: LINEZOLID IV.SIG SCH ×2 (09:15→21:46)
[2018-05-29] MEDS: MethylPREDNISolone Sod Succinate Inj 125 MG/2 ML Vial IV.PUSH SCH (09:15)
[2018-05-29] MEDS: DEXTROSE IV.SIG SCH ×2 (09:15→21:46)
[2018-05-29] MEDS: Lidocaine 5% Patch T-DERMAL SCH (09:45)
[2018-05-29] MEDS ORDERED: Vancomycin Consult Pharmacy OTHER PRN (10:25)
--- NOTE | 2018-05-29 10:59 | P.PNONC ---
Subjective Interval history: T-max 102.2 yesterday afternoon Per GENERAL COUNSEL her stool output has decreased No bleeding Objective Vital Signs/Intake & Output: Vital Signs 05/28/18 11:00 05/28/18 11:07 05/28/18 11:15 Temperature Pulse Rate 122 H 120 H Respiratory Rate 14 Blood Pressure 151/70 H 137/61 Pulse Oximetry 98 96 97 05/28/18 11:30 05/28/18 11:45 05/28/18 12:00 Temperature Pulse Rate 115 H 110 H 109 H Respiratory Rate Blood Pressure 145/66 H 140/62 139/63 Pulse Oximetry 96 97 97 05/28/18 12:15 05/28/18 12:30 05/28/18 12:45 Temperature Pulse Rate 108 H 104 H 104 H Respiratory Rate Blood Pressure 153/70 H 138/59 L 135/63 Pulse Oximetry 98 97 97 05/28/18 13:00 05/28/18 13:15 05/28/18 13:30 Temperature Pulse Rate 105 H 111 H 110 H Respiratory Rate Blood Pressure 143/65 H 153/69 H 157/72 H Pulse Oximetry 97 98 98 05/28/18 13:45 05/28/18 14:00 05/28/18 14:15 Temperature Pulse Rate 108 H 110 H 108 H Respiratory Rate Blood Pressure 146/69 H 154/70 H 151/68 H Pulse Oximetry 98 98 98 05/28/18 14:30 05/28/18 14:45 05/28/18 15:00 Temperature Pulse Rate 112 H 113 H 115 H Respiratory Rate Blood Pressure 154/69 H 142/63 H 150/69 H Pulse Oximetry 98 98 98 05/28/18 15:15 05/28/18 15:30 05/28/18 15:45 Temperature Pulse Rate 115 H 115 H 115 H Respiratory Rate Blood Pressure 152/70 H 151/70 H 153/72 H Pulse Oximetry 98 98 98 05/28/18 15:50 05/28/18 16:00 05/28/18 16:15 Temperature 102.2 F H Pulse Rate 117 H 113 H Respiratory Rate 17 Blood Pressure 155/69 H 141/65 H Pulse Oximetry 97 97 97 05/28/18 16:30 05/28/18 16:45 05/28/18 17:00 Temperature Pulse Rate 117 H 116 H 116 H Respiratory Rate Blood Pressure 141/64 H 139/63 142/63 H Pulse Oximetry 97 97 97 05/28/18 17:15 05/28/18 17:21 05/28/18 17:30 Temperature Pulse Rate 122 H 117 H 114 H Respiratory Rate Blood Pressure 151/70 H 137/63 Pulse Oximetry 97 97 05/28/18 17:45 05/28/18 18:00 05/28/18 18:15 Temperature Pulse Rate 113 H 114 H 115 H Respiratory Rate Blood Pressure 124/56 L 130/62 141/64 H Pulse Oximetry 97 97 97 05/28/18 18:30 05/28/18 18:45 05/28/18 19:00 Temperature Pulse Rate 109 H 112 H 108 H Respiratory Rate Blood Pressure 126/61 141/64 H 128/63 Pulse Oximetry 97 97 97 05/28/18 19:15 05/28/18 19:30 05/28/18 19:45 Temperature Pulse Rate 109 H 110 H 108 H Respiratory Rate Blood Pressure 132/62 138/63 133/61 Pulse Oximetry 97 97 97 05/28/18 20:00 05/28/18 20:15 05/28/18 20:30 Temperature 99.8 F H Pulse Rate 110 H 110 H 109 H Respiratory Rate Blood Pressure 162/75 H 142/61 H 131/60 Pulse Oximetry 98 98 97 05/28/18 20:45 05/28/18 21:00 05/28/18 21:15 Temperature 98.2 F Pulse Rate 106 H 108 H 107 H Respiratory Rate Blood Pressure 132/61 131/61 141/65 H Pulse Oximetry 97 97 97 05/28/18 21:30 05/28/18 21:45 05/28/18 21:53 Temperature Pulse Rate 108 H 108 H Respiratory Rate 15 Blood Pressure 138/65 147/66 H Pulse Oximetry 97 97 98 05/28/18 22:00 05/28/18 22:15 05/28/18 22:30 Temperature Pulse Rate 107 H 108 H 108 H Respiratory Rate Blood Pressure 139/65 146/66 H 134/63 Pulse Oximetry 98 97 97 05/28/18 22:45 05/28/18 23:00 05/28/18 23:06 Temperature Pulse Rate 109 H 106 H 106 H Respiratory Rate Blood Pressure 154/70 H 142/65 H Pulse Oximetry 97 97 97 05/28/18 23:15 05/28/18 23:30 05/28/18 23:45 Temperature Pulse Rate 102 H 106 H 106 H Respiratory Rate Blood Pressure Pulse Oximetry 97 97 99 05/28/18 23:50 05/29/18 00:00 05/29/18 00:06 Temperature 99.8 F H Pulse Rate 103 H 102 H Respiratory Rate 14 Blood Pressure 136/63 Pulse Oximetry 97 97 97 05/29/18 00:15 05/29/18 00:30 05/29/18 00:45 Temperature Pulse Rate 97 H 95 H 98 H Respiratory Rate Blood Pressure Pulse Oximetry 97 97 97 05/29/18 01:00 05/29/18 01:06 05/29/18 01:15 Temperature Pulse Rate 93 H 93 H 92 H Respiratory Rate Blood Pressure 128/60 Pulse Oximetry 97 97 97 05/29/18 01:30 05/29/18 01:45 05/29/18 02:00 Temperature Pulse Rate 93 H 94 H 93 H Respiratory Rate Blood Pressure Pulse Oximetry 97 98 98 05/29/18 02:06 05/29/18 02:15 05/29/18 02:30 Temperature Pulse Rate 93 H 92 H 92 H Respiratory Rate Blood Pressure 121/60 Pulse Oximetry 98 98 98 05/29/18 02:45 05/29/18 03:00 05/29/18 03:06 Temperature Pulse Rate 93 H 94 H 94 H Respiratory Rate Blood Pressure 140/67 Pulse Oximetry 97 98 98 05/29/18 03:15 05/29/18 03:30 05/29/18 03:45 Temperature Pulse Rate 99 H 97 H 104 H Respiratory Rate Blood Pressure Pulse Oximetry 97 96 97 05/29/18 04:00 05/29/18 04:06 05/29/18 04:15 Temperature 98.8 F Pulse Rate 105 H 107 H 107 H Respiratory Rate Blood Pressure 152/72 H Pulse Oximetry 97 97 97 05/29/18 04:30 05/29/18 04:33 05/29/18 04:45 Temperature Pulse Rate 110 H 110 H Respiratory Rate 19 Blood Pressure Pulse Oximetry 98 98 97 05/29/18 05:00 05/29/18 05:06 05/29/18 05:15 Temperature Pulse Rate 108 H 109 H 111 H Respiratory Rate Blood Pressure 154/71 H Pulse Oximetry 97 97 98 05/29/18 05:30 05/29/18 05:45 05/29/18 06:00 Temperature Pulse Rate 108 H 109 H 109 H Respiratory Rate Blood Pressure Pulse Oximetry 96 97 97 05/29/18 06:06 05/29/18 06:15 05/29/18 06:30 Temperature Pulse Rate 108 H 109 H 107 H Respiratory Rate Blood Pressure 141/65 H Pulse Oximetry 97 96 97 05/29/18 08:00 05/29/18 10:04 Temperature Pulse Rate Respiratory Rate 21 28 H Blood Pressure Pulse Oximetry 98 96 Intake & Output 05/28/18 05/29/18 05/29/18 18:59 06:59 18:59 Intake Total 335 / 335 500 / 500 300 / 300 Output Total 2970 / 2970 2670 / 2670 Balance -2635 / -2635 -2170 / -2170 300 / 300 Intake: IV 335 / 335 500 / 500 300 / 300 Cleviprex Inj 25 mg In 50 ml @ 35 / 35 1 MG/HR 2 mls/hr IV.CONT TITRATE PRN Rx#:[id number] Protonix Inj 80 MG In NS Inj 100 / 100 100 / 100 100 / 100 100 ML @ 10 mls/hr IV.CONT Q10H VALERY Rx#:[id number] Azactam Inj 2 GM In NS Inj 100 100 / 100 200 / 200 ML @ 200 mls/hr IV.SIG Q8H VALERY Rx#:[id number] Magnesium Sulfate Inj 2 GM In 100 / 100 NS Inj 96 ML @ 50 mls/hr IV.SIG UNSCH PRN Rx#:[id number] Mycamine Inj 150 MG In NS Inj 100 / 100 100 ML @ 100 mls/hr IV.SIG Q24H VALERY Rx#:[id number] KCl 20 mEq Premix Inj 20 meq In 100 / 100 100 ml @ 50 mls/hr IV.SIG Q2H VALERY Rx#:[id number] Output: Urine 1550 / 1550 Stool 100 / 100 200 / 200 Urine Amount (Catheter) 1700 / 1700 Indwelling Urethral Catheter 1700 / 1700 Gastric Drainage 1300 / 1300 750 / 750 Right Nare Nasogastric Tube 1300 / 1300 750 / 750 Wound Drainage 20 / 20 20 / 20 # 2 Left Abdomen 20 / 20 20 / 20 Other: Date of Last Bowel Movement 05/28/18 Result Diagrams: 05/29/18 04:24 05/29/18 04:24 Laboratory Results: Laboratory Results - last 24 hr 05/28/18 05/28/18 05/28/18 15:53 17:22 23:08 WBC RBC Hgb Hct MCV MCH MCHC RDW Plt Count MPV Neut % (Auto) Lymph % (Auto) [place] % (Auto) Eos % (Auto) Baso % (Auto) Neut # (Auto) Lymph # (Auto) [place] # (Auto) Eos # (Auto) Baso # (Auto) WBC Differential Differential Comment Sodium 157 H* Potassium 3.8 Chloride 122 H Carbon Dioxide 29.0 Anion Gap 6 BUN 58 H Creatinine 1.06 H Estimated GFR 50 L POC Glucose 159 H Random Glucose 124 H Calcium 7.9 L D Total Bilirubin AST ALT Alkaline Phosphatase Troponin I 0.11 H Total Protein Albumin Stl C.difficile DNA Amp Negative St C. diff Tox Epid 027 Negative 05/29/18 05/29/18 04:24 04:24 WBC 22.0 H RBC 3.43 L Hgb 10.0 L Hct 30.8 L MCV 89.7 MCH 29.1 MCHC 32.5 RDW 16.3 Plt Count 108 L MPV 9.4 Neut % (Auto) 94.4 H Lymph % (Auto) 1.8 L [place] % (Auto) 3.6 Eos % (Auto) 0.0 Baso % (Auto) 0.2 Neut # (Auto) 20.7 H Lymph # (Auto) 0.4 L [place] # (Auto) 0.8 Eos # (Auto) 0.0 Baso # (Auto) 0.0 WBC Differential . Differential Comment Auto diff final Sodium 157 H* Potassium 3.7 Chloride 121 H Carbon Dioxide 27.8 Anion Gap 8 BUN 56 H Creatinine 1.08 H Estimated GFR 49 L POC Glucose Random Glucose 115 H Calcium 8.1 L Total Bilirubin 0.8 AST 52 H ALT 100 H Alkaline Phosphatase 90 Troponin I Total Protein 6.1 L Albumin 2.7 L Stl C.difficile DNA Amp St C. diff Tox Epid 027 Culture Results: Microbiology 05/28/18 10:33 Aerobic Blood Culture - Preliminary Blood - Peripheral gram positive cocci Anaerobic Blood Culture - Preliminary gram positive cocci 05/28/18 10:27 Aerobic Blood Culture - Preliminary Blood - Peripheral gram positive cocci 05/27/18 09:13 Urine Culture - Final Catheterized Urine No growth in 48 hours 05/27/18 09:13 Gram Stain - Final Sputum - Endotracheal Sputum Culture - Final Citrobacter species Staphylococcus aureus Medications: Active Medications Generic Name Dose Route Start Last Admin Trade Name Freq PRN Reason Stop Dose Admin Acetaminophen 650 mg 05/17/18 06:10 05/28/18 16:28 Tylenol PO 650 mg Q4H PRN Administration Temp > 100.4 Hydrocodone Bitart/Acetaminophen 1 tab 05/19/18 10:01 05/19/18 13:15 [place] 5/325 PO 1 tab Q6H PRN Administration Pain 2-5 Hydrocodone Bitart/Acetaminophen 1 tab 05/19/18 10:01 05/19/18 20:10 [place] 10/325 PO 1 tab Q6H PRN Administration Pain 6-10 Albuterol 2.5 mg 05/21/18 23:28 05/28/18 08:20 Albuterol Neb (Prn) NEB 2.5 mg Q2HR NEB PRN Administration WHEEZING Amlodipine Besylate 5 mg 05/26/18 10:00 05/29/18 09:14 Norvasc J-TUBE 5 mg DAILY VALERY Administration Artificial Tears 1 applicatio 05/22/18 21:00 05/29/18 09:13 Lacrilube Opth Oint EACH EYE 1 applicatio BID VALERY Administration Clonidine HCl 0.1 mg 05/26/18 11:24 05/26/18 23:31 Catapres PO 0.1 mg Q6H PRN Administration SBP>160, DBP>90 Fentanyl Citrate 100 mcg 05/23/18 10:59 05/23/18 11:12 Fentanyl Inj IV.PUSH 100 mcg Q1H PRN Administration Any pain Furosemide 20 mg 05/28/18 21:00 05/29/18 09:13 Lasix Inj IV.PUSH 20 mg Q12H VALERY Administration Heparin Sodium (Porcine) 0 unit 05/21/18 09:00 05/29/18 09:13 Heparin Central Flush IV.FLUSH Not Given DAILY VALERY Hydralazine HCl 10 mg 05/23/18 00:24 05/28/18 16:12 Apresoline Inj IV.PUSH 10 mg Q1H PRN Administration Sbp>165, Dbp>90 Hydromorphone HCl 2 mg 05/19/18 21:41 05/26/18 02:26 Dilaudid Pf Inj IV.PUSH 2 mg Q4H PRN Administration PAIN SCALE 6 -10 Pantoprazole Sodium 80 mg/ 100 mls @ 10 mls/hr 05/17/18 09:00 05/29/18 10:28 Sodium Chloride IV.CONT 10 mls/hr Q10H VALERY Administration Sodium Chloride 500 mls @ 30 mls/hr 05/18/18 07:00 05/18/18 07:00 Ns Inj IV.SIG Not Given .Q10H VALREY Fentanyl 2,500 mcg in 250 mls @ 5 mls/hr 05/20/18 20:00 05/29/18 10:18 Fentanyl 10 Mcg/Ml Premix Drip IV.SIG 50 mcg/hr TITRATE PRN 5 mls/hr Per Protocol Titration Protocol 50 MCG/HR Magnesium Sulfate 2 gm/ Sodium 100 mls @ 50 mls/hr 05/22/18 22:43 05/28/18 21 :30 Chloride IV.SIG Infused UNSCH PRN Infusion For Magnesium 1.2 - 1.6 mg/dL Potassium Chloride 40 meq in 100 mls @ 25 mls/hr 05/22/18 22:43 05/27/18 11: 02 Kcl 40 Meq Premix Inj IV.SIG Infused Q2H PRN Infusion For Potassium 2.8 - 3.2 mEq/L Potassium Chloride 40 meq in 100 mls @ 25 mls/hr 05/22/18 22:43 05/28/18 00: 32 Kcl 40 Meq Premix Inj IV.SIG Infused UNSCH PRN Infusion For Potassium 3.3 - 3.5 mEq/L Potassium Phosphate 30 mmol/ 260 mls @ 42 mls/hr 05/22/18 22:43 05/23/18 12: 57 Sodium Chloride IV.SIG Infused UNSCH PRN Infusion SEE LABEL COMMENTS Propofol 1,000 mg in 100 mls @ 2.922 mls/hr 05/23/18 11:00 05/26/18 10:35 Diprivan 1000 Mg/100 Ml Inj IV.CONT 0 mcg/kg/min TITRATE PRN 0 mls/hr Per Protocol Titration Protocol 5 MCG/KG/MIN Clevidipine 25 mg in 50 mls @ 2 mls/hr 05/26/18 11:23 05/28/18 09:00 Cleviprex Inj IV.CONT Infused TITRATE PRN Titration Per protocol Protocol 1 MG/HR Aztreonam 2 gm/ Sodium 100 mls @ 200 mls/hr 05/28/18 10:00 05/29/18 10:29 Chloride IV.SIG 200 mls/hr Q8H [facility]ERY Administration Micafungin Sodium 150 mg/ 100 mls @ 100 mls/hr 05/28/18 20:00 05/28/18 22:06 Sodium Chloride IV.SIG Infused Q24H [facility]ERY Infusion Labetalol HCl 20 mg 05/26/18 07:44 05/27/18 03:30 Trandate Inj IV.PUSH 20 mg Q2H PRN Administration KEEP SBP<160 Lidocaine HCl 2 patch 05/19/18 09:30 05/29/18 09:45 Lidoderm 5% Patch.12 Hr T-DERMAL 2 patch DAILY [facility]ERY Administration Linezolid 600 mg 05/28/18 10:00 05/29/18 09:15 Zyvox 600 Mg Premix IV.SIG 600 mg Q12H VALERY Administration Metronidazole 500 mg 05/28/18 09:30 05/29/18 06:09 Flagyl J-TUBE 500 mg Q8HR VALERY Administration Ondansetron HCl 4 mg 05/17/18 06:10 05/28/18 05:13 Zofran Inj IV.PUSH 4 mg Q6H PRN Administration NAUSEA OR VOMITING Patch Removal 1 each 05/19/18 21:00 05/29/18 09:45 Remove Old Patch T-DERMAL 1 each BID [facility]ERY Administration Potassium Bicarb/Potassium Chloride 25 meq 05/26/18 21:00 05/29/18 09:13 K-Lyte Cl Eff NG/OG 25 meq BID VALERY Administration Prochlorperazine Edisylate 10 mg 05/17/18 09:06 05/19/18 00:08 Compazine Inj IV.PUSH 10 mg Q6H PRN Administration NAUSEA Senna/Docusate Sodium 1 tab 05/17/18 09:00 05/29/18 09:14 Jessie-Colace PO 1 tab BID VALERY Administration Sodium Chloride 0 ml 05/21/18 09:00 05/29/18 09:14 Ns Flush IV.FLUSH 2 ml DAILY VALERY Administration Sodium Chloride 0 ml 05/20/18 16:43 05/26/18 01:39 Ns Flush IV.FLUSH 2 ml PRN PRN Administration FLUSH AFTER USING IV ACCESS Sterile Water 100 ml 05/28/18 12:00 12/07/18 09:13 Free Water J-TUBE 100 ml Q4HR [facility]ERY Administration Objective Remarks: GENERAL: Critically ill-appearing female patient. +Intubated. Awake and looking around the room. SKIN: Warm and dry. HEAD: Normocephalic. EYES: No scleral icterus. No injection or drainage. NECK: Supple, trachea midline. CARDIOVASCULAR: Tachycardic. RESPIRATORY: Rhonchi and crackles throughout. GASTROINTESTINAL: Abdomen large, binder in place, drain with minimal fluid. EXTREMITIES: +anasarca. NEUROLOGICAL: Patient only on small amount fentanyl for pain control. She is awake and looking around the room. Assessment/Plan - Plan Ms. Perea is a pleasant 82-year-old lady with a history of lung cancer, multifocal amyloidosis, lymphomoplasmacytic disorder and now gastrointestinal bleeding. Plan: Although the thrombocytopenia is mildly decreased from yesterday we are inclined to decrease the Solu-Medrol so as not to delay wound healing. Would only consider increasing the prednisone due to thrombocytopenia if she drops rapidly. Blood cultures on 05/28 show gram-positive cocci. Infectious disease was consulted yesterday. Micafungin has been added. She is C. difficile negative. Defer to critical care for medical management. - Attending Statement The exam, history, and the medical decision-making described in the above note were completed with the assistance of the mid-level provider. I reviewed and agree with the findings presented. I attest that I had a [id number] encounter with the patient on the same day, and personally performed and documented my assessment and findings in the medical record. The patient is more alert today. The fall in the platelet count may be due to the gram-positive sepsis. In any case thrombocytopenia is not a problem and even if the platelets fell a modest amount this still would not be an issue. Will continue to taper the steroids due to the increased risks of infection and poor wound healing.
--- NOTE | 2018-05-29 11:23 | P.PNCC ---
Subjective Subjective Remarks/Hospital Course: Hospital Course: 82yF with history of amyloidosis who presented with GI bleeding, hypotension, and severe anemia. originally admitted to the floor. hgb continued to downtrend despite transfusions. today taken for EGD which found blood in the stomach and clot, but no active bleeding. despite this, hgb still did not improve. taken for bleeding scan which was very +. discussed case with Dr. Garcia/Dr. Garland in IR. review of admission CT abd/pelvis demonstrates possible bleeding at duodenal bulb concerning for ulceration. Taken emergently to IR for embolization which appears to be successful. I evaluated the patient upon arrival to the ICU post-IR procedure. she is stable. complaining of hip pain. hgb has improved appropriately. she denies other complaints. she asked me not to look at her groin sites because "my hips hurt and I am tired." Recent evaluation by bedside RN is without hematoma, and this evaluation is deferred at patient's request (bedside RN to continue to monitor for signs of hematoma). remainder of ROS negative. Subjective: 05/20: doing well. complaining of moderate abdominal pain 5/10. receiving iv dilaudid currently. plan for EGD today. hgb dropped from 7.8 to 7.4, but slightly more tachycardic today, and I am worried about ongoing bleeding, although it does appear to be much slower clinically than yesterday. I discussed with GI FIELD CONTROL INSPECTOR that per my conversation with IR, the lesion may be in the 4th portion of the duodenum near the ligament and it may require further investigation that usual EGD, and possibly push enteroscopy. She stated she would convey to the proceduralist. Dr. Shin suggests type II NSTEMI secondary to anemia and I agree completely with his assessment. Given that she is going soon for repeat EGD with anesthesia, will give 1 additional unit of prbc as she clearly has demonstrated she needs higher hematocrit for oxygen carrying capacity to her known ischemic CAD lesions. 05/21: s/p exploratory laparotomy last night. open abdomen. hgb stable. became acutely hypotensive with increased wound vac output one time today- emergently gave 1 unit prbc and 1 unit plt empirically given sudden change in condition. significant 3rd space losses requiring additional resuscitative efforts. remains deeply sedated. off vasopressors. remains intubated. 05/22: more hemodynamically stable today. hgb stable. still high wound-vac output with 300-500mL/12h. uop remains adequate at 70-80mL/hr, but Cr slightly elevated over baseline. unable to start diuresis yet and clinically although developing anasarca in the tissues, appears intravascularly euvolemic but not overloaded. likely will not tolerate diuresis efforts without significant kidney injury at this present juncture. needs bringback and washout in OR, but will leave timing of this to general surgery. 05/23: Received from operating room in good condition. Abdominal wound closed following gastrojejunostomy. Joseph-Vieira drain in region of the duodenal stump, gastric anastomosis. Nasogastric tube to not be moved, good position in stomach, keep to low intermittent suction. Downstream jejunostomy tube for initiation of trickle feeds. Renal function this morning excellent, follow closely. Chemical ventilation for the next couple of days as we observe tension on the abdominal wall. Meticulously avoid fluid overload. At present she is hypertensive and tachycardic for which we will restart propofol and use boluses of fentanyl as needed. Baseline fentanyl drip is infusing. 05/24: Remains warm and well-perfused overnight. Urine output acceptable at 35- 40 cc/h. Tolerated spontaneous breathing trial well this morning, we keep on vent for another 24-48 hours. Generalized edema persists. 05/25: Intubated sedated heavily. Urine output excellent with Lasix overall 3 L. Currently remains grossly fluid overloaded approximately 20 kg up from admission weight. We will start scheduled Lasix 20 every 8 hours with potassium replacement to facilitate ventilator weaning. 05/26: Sedated, orally intubated on mech vent. Being diuresed. Elevated BP on lightening sedation noted. 05/27: Sedated, orally intubated on mechanical ventilation. Being diuresed. Failed CPAP trial earlier. On Cleviprex for hypertension 05/28: Had episode of emesis last night. NGT remains to suction. Febrile overnight with rising WBCs noted. Sputum culture and UA ordered 05/27, getting blood cultures and starting empiric Abx coverage. Being diuresed. Cleviprex gtt being titrated down. 05/29: Arousable, intubated on mechanical ventilation. Follows commands by nodding, squeezes my fingers on command. Febrile yesterday for which she had cultures sent and was started on empiric antibiotic coverage. Blood cultures 3 out of 4 are growing gram-positive cocci. Her central line and PICC line were discontinued yesterday. Objective Vital Signs / I&O: Vital Signs 05/28/18 11:15 05/28/18 11:30 05/28/18 11:45 Temperature Pulse Rate 120 H 115 H 110 H Respiratory Rate Blood Pressure 137/61 145/66 H 140/62 Pulse Oximetry 97 96 97 05/28/18 12:00 05/28/18 12:15 05/28/18 12:30 Temperature Pulse Rate 109 H 108 H 104 H Respiratory Rate Blood Pressure 139/63 153/70 H 138/59 L Pulse Oximetry 97 98 97 05/28/18 12:45 05/28/18 13:00 05/28/18 13:15 Temperature Pulse Rate 104 H 105 H 111 H Respiratory Rate Blood Pressure 135/63 143/65 H 153/69 H Pulse Oximetry 97 97 98 05/28/18 13:30 05/28/18 13:45 05/28/18 14:00 Temperature Pulse Rate 110 H 108 H 110 H Respiratory Rate Blood Pressure 157/72 H 146/69 H 154/70 H Pulse Oximetry 98 98 98 05/28/18 14:15 05/28/18 14:30 05/28/18 14:45 Temperature Pulse Rate 108 H 112 H 113 H Respiratory Rate Blood Pressure 151/68 H 154/69 H 142/63 H Pulse Oximetry 98 98 98 05/28/18 15:00 05/28/18 15:15 05/28/18 15:30 Temperature Pulse Rate 115 H 115 H 115 H Respiratory Rate Blood Pressure 150/69 H 152/70 H 151/70 H Pulse Oximetry 98 98 98 05/28/18 15:45 05/28/18 15:50 05/28/18 16:00 Temperature 102.2 F H Pulse Rate 115 H 117 H Respiratory Rate 17 Blood Pressure 153/72 H 155/69 H Pulse Oximetry 98 97 97 05/28/18 16:15 05/28/18 16:30 05/28/18 16:45 Temperature Pulse Rate 113 H 117 H 116 H Respiratory Rate Blood Pressure 141/65 H 141/64 H 139/63 Pulse Oximetry 97 97 97 05/28/18 17:00 05/28/18 17:15 05/28/18 17:21 Temperature Pulse Rate 116 H 122 H 117 H Respiratory Rate Blood Pressure 142/63 H 151/70 H Pulse Oximetry 97 97 05/28/18 17:30 05/28/18 17:45 05/28/18 18:00 Temperature Pulse Rate 114 H 113 H 114 H Respiratory Rate Blood Pressure 137/63 124/56 L 130/62 Pulse Oximetry 97 97 97 05/28/18 18:15 05/28/18 18:30 05/28/18 18:45 Temperature Pulse Rate 115 H 109 H 112 H Respiratory Rate Blood Pressure 141/64 H 126/61 141/64 H Pulse Oximetry 97 97 97 05/28/18 19:00 05/28/18 19:15 05/28/18 19:30 Temperature Pulse Rate 108 H 109 H 110 H Respiratory Rate Blood Pressure 128/63 132/62 138/63 Pulse Oximetry 97 97 97 05/28/18 19:45 05/28/18 20:00 05/28/18 20:15 Temperature 99.8 F H Pulse Rate 108 H 110 H 110 H Respiratory Rate Blood Pressure 133/61 162/75 H 142/61 H Pulse Oximetry 97 98 98 05/28/18 20:30 05/28/18 20:45 05/28/18 21:00 Temperature 98.2 F Pulse Rate 109 H 106 H 108 H Respiratory Rate Blood Pressure 131/60 132/61 131/61 Pulse Oximetry 97 97 97 05/28/18 21:15 05/28/18 21:30 05/28/18 21:45 Temperature Pulse Rate 107 H 108 H 108 H Respiratory Rate Blood Pressure 141/65 H 138/65 147/66 H Pulse Oximetry 97 97 97 05/28/18 21:53 05/28/18 22:00 05/28/18 22:15 Temperature Pulse Rate 107 H 108 H Respiratory Rate 15 Blood Pressure 139/65 146/66 H Pulse Oximetry 98 98 97 05/28/18 22:30 05/28/18 22:45 05/28/18 23:00 Temperature Pulse Rate 108 H 109 H 106 H Respiratory Rate Blood Pressure 134/63 154/70 H Pulse Oximetry 97 97 97 05/28/18 23:06 05/28/18 23:15 05/28/18 23:30 Temperature Pulse Rate 106 H 102 H 106 H Respiratory Rate Blood Pressure 142/65 H Pulse Oximetry 97 97 97 05/28/18 23:45 05/28/18 23:50 05/29/18 00:00 Temperature 99.8 F H Pulse Rate 106 H 103 H Respiratory Rate 14 Blood Pressure Pulse Oximetry 99 97 97 05/29/18 00:06 05/29/18 00:15 05/29/18 00:30 Temperature Pulse Rate 102 H 97 H 95 H Respiratory Rate Blood Pressure 136/63 Pulse Oximetry 97 97 97 05/29/18 00:45 05/29/18 01:00 05/29/18 01:06 Temperature Pulse Rate 98 H 93 H 93 H Respiratory Rate Blood Pressure 128/60 Pulse Oximetry 97 97 97 05/29/18 01:15 05/29/18 01:30 05/29/18 01:45 Temperature Pulse Rate 92 H 93 H 94 H Respiratory Rate Blood Pressure Pulse Oximetry 97 97 98 05/29/18 02:00 05/29/18 02:06 05/29/18 02:15 Temperature Pulse Rate 93 H 93 H 92 H Respiratory Rate Blood Pressure 121/60 Pulse Oximetry 98 98 98 05/29/18 02:30 05/29/18 02:45 05/29/18 03:00 Temperature Pulse Rate 92 H 93 H 94 H Respiratory Rate Blood Pressure Pulse Oximetry 98 97 98 05/29/18 03:06 05/29/18 03:15 05/29/18 03:30 Temperature Pulse Rate 94 H 99 H 97 H Respiratory Rate Blood Pressure 140/67 Pulse Oximetry 98 97 96 05/29/18 03:45 05/29/18 04:00 05/29/18 04:06 Temperature 98.8 F Pulse Rate 104 H 105 H 107 H Respiratory Rate Blood Pressure 152/72 H Pulse Oximetry 97 97 97 05/29/18 04:15 05/29/18 04:30 05/29/18 04:33 Temperature Pulse Rate 107 H 110 H Respiratory Rate 19 Blood Pressure Pulse Oximetry 97 98 98 05/29/18 04:45 05/29/18 05:00 05/29/18 05:06 Temperature Pulse Rate 110 H 108 H 109 H Respiratory Rate Blood Pressure 154/71 H Pulse Oximetry 97 97 97 05/29/18 05:15 05/29/18 05:30 05/29/18 05:45 Temperature Pulse Rate 111 H 108 H 109 H Respiratory Rate Blood Pressure Pulse Oximetry 98 96 97 05/29/18 06:00 05/29/18 06:06 05/29/18 06:15 Temperature Pulse Rate 109 H 108 H 109 H Respiratory Rate Blood Pressure 141/65 H Pulse Oximetry 97 97 96 05/29/18 06:30 05/29/18 08:00 05/29/18 10:04 Temperature Pulse Rate 107 H Respiratory Rate 21 28 H Blood Pressure Pulse Oximetry 97 98 96 Intake & Output 05/28/18 05/29/18 05/29/18 18:59 06:59 18:59 Intake Total 335 / 335 500 / 500 300 / 300 Output Total 2970 / 2970 2670 / 2670 Balance -2635 / -2635 -2170 / -2170 300 / 300 Intake: IV 335 / 335 500 / 500 300 / 300 Cleviprex Inj 25 mg In 50 ml @ 35 / 35 1 MG/HR 2 mls/hr IV.CONT TITRATE PRN Rx#:[id number] Protonix Inj 80 MG In NS Inj 100 / 100 100 / 100 100 / 100 100 ML @ 10 mls/hr IV.CONT Q10H VALERY Rx#:[id number] Azactam Inj 2 GM In NS Inj 100 100 / 100 200 / 200 ML @ 200 mls/hr IV.SIG Q8H VALERY Rx#:[id number] Magnesium Sulfate Inj 2 GM In 100 / 100 NS Inj 96 ML @ 50 mls/hr IV.SIG UNSCH PRN Rx#:[id number] Mycamine Inj 150 MG In NS Inj 100 / 100 100 ML @ 100 mls/hr IV.SIG Q24H VALERY Rx#:[id number] KCl 20 mEq Premix Inj 20 meq In 100 / 100 100 ml @ 50 mls/hr IV.SIG Q2H VALERY Rx#:[id number] Output: Urine 1550 / 1550 Stool 100 / 100 200 / 200 Urine Amount (Catheter) 1700 / 1700 Indwelling Urethral Catheter 1700 / 1700 Gastric Drainage 1300 / 1300 750 / 750 Right Nare Nasogastric Tube 1300 / 1300 750 / 750 Wound Drainage 20 / 20 20 / 20 # 2 Left Abdomen 20 / 20 20 / 20 Other: Date of Last Bowel Movement 05/28/18 Result Diagrams: 05/29/18 04:24 05/29/18 04:24 Objective Remarks: GENERAL: Well sedated patient, mechanically ventilated, calm. HEENT: Normocephalic. Atraumatic. GEOVANI. Orotracheal intubation. CHEST: Orally intubated on mechanical ventilation, clear breath sounds bilaterally, equal chest rise. Air entry diminished at the bases. No adventitious sounds. CARDIOVASCULAR: Normal S1-S2. Regular normal rate, regular rhythm. No JVD. ABDOMEN: Fascia closed, postsurgical wound intact, abdominal binder in place. Soft, nondistended. Few bowel sounds heard. MUSCULOSKELETAL: Bilateral foot pulses 2+. bilateral foot and ankle edema. Warm and well-perfused fingers and toes. NEUROLOGICAL: Drowsy, easily arousable, opens eyes on command,, withdraws 4 limbs, localizes, breathing spontaneously over the ventilator. Assessment and Plan - Assessment and Plan Plan: Assessment: 82yF with amyloidosis and active GI bleed. s/p emergent IA embolization 05/19. s/p EGD 05/19 and again 05/20 with ischemia present. s/p emergent exploratory laparotomy with duodenal and jejunal resection, initially left in discontinuity with open abdomen, and now reconstructed with abdominal wall closure. Remains critically ill. Scheduled Lasix started for aggressive diuresis. Grossly fluid up approximately 20 kg Active upper GI bleed Acute hypoxic and hypercarbic respiratory failure s/p emergent exploratory laparotomy with duodenal and jejunal resection, initially left in discontinuity with open abdomen 05/20 Now reconstructed with abdominal wall closure. severe acute anemia secondary to blood loss requiring transfusion- persistent duodenal ulcer Type II NSTEMI secondary to demand ischemia from severe anemia s/p EGD 05/19, 05/20 s/p emergent IR embolization 05/19 severe acute thrombocytopenia acute protein calorie malnutrition- moderate to severe Fluid overload sepsis Pneumonia Gram-positive cocci bacteremia Plan: - [facility] ventilator mode. Daily spontaneous breathing trials. - propofol, fentanyl for goal RASS -2 to - 3. Discontinue Versed -Continue IV Lasix 20 mg every 12 hours with potassium replacement - Grossly fluid positive approximately 20 kg. Need to get weight closer to admission weight prior to extubation - Off IV fluids - F/u cultures, Starting empiric abx with azactam, zyvox, flagyl via G tube. ID consulted for further abx management, sepsis eval. micafungin added by ID on 05/28. -Blood cultures from 05/28 growing gram-positive cocci (3 out of 4) - Labetalol prn, Cardene gtt to keep SBP less than 160mm Hg, Norvasc 5mg via J tube daily started 05/26 - Serial hemoglobin, transfuse to keep hgb > 7 - serially check platelets, transfuse to keep plt > 50k. Tapering solumedrol, decreased to 40mg daily - tube feeds per general surgery, through jejunostomy. Currently held - Daily am cbc, bmp, mg, phos - ICU electrolyte replacement protocol - SCDs. Start subcu heparin when cleared by general surgery. 05/28: Discussed with ID, discussed with Dr. Jeferson vicente, discussed with patient's daughter at bedside. 05/29: Discussed with ID Dr. Dhillon, discussed with patient's daughter Raciel Conley and updated her regarding current clinical status including plan of care and she voiced understanding and was agreeable. Overall impression: This patient remains critically ill with fluctuating renal function, fluid overload and compromised respiratory reserve due to recent resuscitation volume and generalized edema, complicated by sepsis. Critical care time excluding procedures 40 mins
--- NOTE | 2018-05-29 11:46 | P.PNID ---
Subjective Remarks: pt is stable today, no high fevers T max yday was 102 + blood culx 3/4 bottles for GPC o/w doing OK still having ileus not started on TF cont to have maroone stool, C.dif f neg Antibiotics: zyvox micafungin flagyl azactam Allergies/Adverse Reactions: Allergies Sulfa (Sulfonamide Antibiotics) Allergy (Severe, Verified 05/17/18 03:34) Anaphylaxis amoxicillin Allergy (Mild, Verified 05/17/18 03:34) nausea codeine Allergy (Mild, Verified 05/17/18 03:34) constipation Objective Vital Signs 05/28/18 11:45 05/28/18 12:00 05/28/18 12:15 Temperature Pulse Rate 110 H 109 H 108 H Respiratory Rate Blood Pressure 140/62 139/63 153/70 H Pulse Oximetry 97 97 98 05/28/18 12:30 05/28/18 12:45 05/28/18 13:00 Temperature Pulse Rate 104 H 104 H 105 H Respiratory Rate Blood Pressure 138/59 L 135/63 143/65 H Pulse Oximetry 97 97 97 05/28/18 13:15 05/28/18 13:30 05/28/18 13:45 Temperature Pulse Rate 111 H 110 H 108 H Respiratory Rate Blood Pressure 153/69 H 157/72 H 146/69 H Pulse Oximetry 98 98 98 05/28/18 14:00 05/28/18 14:15 05/28/18 14:30 Temperature Pulse Rate 110 H 108 H 112 H Respiratory Rate Blood Pressure 154/70 H 151/68 H 154/69 H Pulse Oximetry 98 98 98 05/28/18 14:45 05/28/18 15:00 05/28/18 15:15 Temperature Pulse Rate 113 H 115 H 115 H Respiratory Rate Blood Pressure 142/63 H 150/69 H 152/70 H Pulse Oximetry 98 98 98 05/28/18 15:30 05/28/18 15:45 05/28/18 15:50 Temperature Pulse Rate 115 H 115 H Respiratory Rate 17 Blood Pressure 151/70 H 153/72 H Pulse Oximetry 98 98 97 05/28/18 16:00 05/28/18 16:15 05/28/18 16:30 Temperature 102.2 F H Pulse Rate 117 H 113 H 117 H Respiratory Rate Blood Pressure 155/69 H 141/65 H 141/64 H Pulse Oximetry 97 97 97 05/28/18 16:45 05/28/18 17:00 05/28/18 17:15 Temperature Pulse Rate 116 H 116 H 122 H Respiratory Rate Blood Pressure 139/63 142/63 H 151/70 H Pulse Oximetry 97 97 97 05/28/18 17:21 05/28/18 17:30 05/28/18 17:45 Temperature Pulse Rate 117 H 114 H 113 H Respiratory Rate Blood Pressure 137/63 124/56 L Pulse Oximetry 97 97 05/28/18 18:00 05/28/18 18:15 05/28/18 18:30 Temperature Pulse Rate 114 H 115 H 109 H Respiratory Rate Blood Pressure 130/62 141/64 H 126/61 Pulse Oximetry 97 97 97 05/28/18 18:45 05/28/18 19:00 05/28/18 19:15 Temperature Pulse Rate 112 H 108 H 109 H Respiratory Rate Blood Pressure 141/64 H 128/63 132/62 Pulse Oximetry 97 97 97 05/28/18 19:30 05/28/18 19:45 05/28/18 20:00 Temperature 99.8 F H Pulse Rate 110 H 108 H 110 H Respiratory Rate Blood Pressure 138/63 133/61 162/75 H Pulse Oximetry 97 97 98 05/28/18 20:15 05/28/18 20:30 05/28/18 20:45 Temperature Pulse Rate 110 H 109 H 106 H Respiratory Rate Blood Pressure 142/61 H 131/60 132/61 Pulse Oximetry 98 97 97 05/28/18 21:00 05/28/18 21:15 05/28/18 21:30 Temperature 98.2 F Pulse Rate 108 H 107 H 108 H Respiratory Rate Blood Pressure 131/61 141/65 H 138/65 Pulse Oximetry 97 97 97 05/28/18 21:45 05/28/18 21:53 05/28/18 22:00 Temperature Pulse Rate 108 H 107 H Respiratory Rate 15 Blood Pressure 147/66 H 139/65 Pulse Oximetry 97 98 98 05/28/18 22:15 05/28/18 22:30 05/28/18 22:45 Temperature Pulse Rate 108 H 108 H 109 H Respiratory Rate Blood Pressure 146/66 H 134/63 154/70 H Pulse Oximetry 97 97 97 05/28/18 23:00 05/28/18 23:06 05/28/18 23:15 Temperature Pulse Rate 106 H 106 H 102 H Respiratory Rate Blood Pressure 142/65 H Pulse Oximetry 97 97 97 05/28/18 23:30 05/28/18 23:45 05/28/18 23:50 Temperature Pulse Rate 106 H 106 H Respiratory Rate 14 Blood Pressure Pulse Oximetry 97 99 97 05/29/18 00:00 05/29/18 00:06 05/29/18 00:15 Temperature 99.8 F H Pulse Rate 103 H 102 H 97 H Respiratory Rate Blood Pressure 136/63 Pulse Oximetry 97 97 97 05/29/18 00:30 05/29/18 00:45 05/29/18 01:00 Temperature Pulse Rate 95 H 98 H 93 H Respiratory Rate Blood Pressure Pulse Oximetry 97 97 97 05/29/18 01:06 05/29/18 01:15 05/29/18 01:30 Temperature Pulse Rate 93 H 92 H 93 H Respiratory Rate Blood Pressure 128/60 Pulse Oximetry 97 97 97 05/29/18 01:45 05/29/18 02:00 05/29/18 02:06 Temperature Pulse Rate 94 H 93 H 93 H Respiratory Rate Blood Pressure 121/60 Pulse Oximetry 98 98 98 05/29/18 02:15 05/29/18 02:30 05/29/18 02:45 Temperature Pulse Rate 92 H 92 H 93 H Respiratory Rate Blood Pressure Pulse Oximetry 98 98 97 05/29/18 03:00 05/29/18 03:06 05/29/18 03:15 Temperature Pulse Rate 94 H 94 H 99 H Respiratory Rate Blood Pressure 140/67 Pulse Oximetry 98 98 97 05/29/18 03:30 05/29/18 03:45 05/29/18 04:00 Temperature 98.8 F Pulse Rate 97 H 104 H 105 H Respiratory Rate Blood Pressure Pulse Oximetry 96 97 97 05/29/18 04:06 05/29/18 04:15 05/29/18 04:30 Temperature Pulse Rate 107 H 107 H 110 H Respiratory Rate Blood Pressure 152/72 H Pulse Oximetry 97 97 98 05/29/18 04:33 05/29/18 04:45 05/29/18 05:00 Temperature Pulse Rate 110 H 108 H Respiratory Rate 19 Blood Pressure Pulse Oximetry 98 97 97 05/29/18 05:06 05/29/18 05:15 05/29/18 05:30 Temperature Pulse Rate 109 H 111 H 108 H Respiratory Rate Blood Pressure 154/71 H Pulse Oximetry 97 98 96 05/29/18 05:45 05/29/18 06:00 05/29/18 06:06 Temperature Pulse Rate 109 H 109 H 108 H Respiratory Rate Blood Pressure 141/65 H Pulse Oximetry 97 97 97 05/29/18 06:15 05/29/18 06:30 05/29/18 08:00 Temperature Pulse Rate 109 H 107 H Respiratory Rate 21 Blood Pressure Pulse Oximetry 96 97 98 05/29/18 10:04 Temperature Pulse Rate Respiratory Rate 28 H Blood Pressure Pulse Oximetry 96 Intake & Output 05/28/18 05/29/18 05/29/18 18:59 06:59 18:59 Intake Total 335 / 335 500 / 500 400 / 400 Output Total 2970 / 2970 2670 / 2670 Balance -2635 / -2635 -2170 / -2170 400 / 400 Intake: IV 335 / 335 500 / 500 400 / 400 Cleviprex Inj 25 mg In 50 ml @ 35 / 35 1 MG/HR 2 mls/hr IV.CONT TITRATE PRN Rx#:[id number] Protonix Inj 80 MG In NS Inj 100 / 100 100 / 100 100 / 100 100 ML @ 10 mls/hr IV.CONT Q10H VALERY Rx#:[id number] Azactam Inj 2 GM In NS Inj 100 100 / 100 200 / 200 100 / 100 ML @ 200 mls/hr IV.SIG Q8H VALERY Rx#:[id number] Magnesium Sulfate Inj 2 GM In 100 / 100 NS Inj 96 ML @ 50 mls/hr IV.SIG UNSCH PRN Rx#:[id number] Mycamine Inj 150 MG In NS Inj 100 / 100 100 ML @ 100 mls/hr IV.SIG Q24H VALERY Rx#:[id number] KCl 20 mEq Premix Inj 20 meq In 100 / 100 100 ml @ 50 mls/hr IV.SIG Q2H VALERY Rx#:[id number] Output: Urine 1550 / 1550 Stool 100 / 100 200 / 200 Urine Amount (Catheter) 1700 / 1700 Indwelling Urethral Catheter 1700 / 1700 Gastric Drainage 1300 / 1300 750 / 750 Right Nare Nasogastric Tube 1300 / 1300 750 / 750 Wound Drainage 20 / 20 20 / 20 # 2 Left Abdomen Other: Date of Last Bowel Movement 05/28/18 05/28/18 10:27 Blood - Peripheral Aerobic Blood Culture - Preliminary gram positive cocci 05/28/18 10:27 Blood - Peripheral Anaerobic Blood Culture - Preliminary No growth in 1 day 05/28/18 10:33 Blood - Peripheral Aerobic Blood Culture - Preliminary gram positive cocci 05/28/18 10:33 Blood - Peripheral Anaerobic Blood Culture - Preliminary gram positive cocci 05/27/18 09:13 Catheterized Urine Urine Culture - Final No growth in 48 hours 05/27/18 09:13 Sputum - Endotracheal Gram Stain - Final 05/27/18 09:13 Sputum - Endotracheal Sputum Culture - Final Citrobacter species Staphylococcus aureus Lab - Hematology Results 05/28/18 05/29/18 05:38 04:24 WBC 21.5 H 22.0 H RBC 3.32 L 3.43 L Hgb 9.8 L 10.0 L Hct 29.6 L 30.8 L MCV 89.1 89.7 MCH 29.4 29.1 MCHC 33.0 32.5 RDW 16.1 16.3 Plt Count 127 L 108 L MPV 9.5 9.4 Neut % (Auto) 95.9 H 94.4 H Lymph % (Auto) 0.9 L 1.8 L [place] % (Auto) 3.1 3.6 Eos % (Auto) 0.0 0.0 Baso % (Auto) 0.1 0.2 Neut # (Auto) 20.6 H 20.7 H Lymph # (Auto) 0.2 L 0.4 L [place] # (Auto) 0.7 0.8 Eos # (Auto) 0.0 0.0 Baso # (Auto) 0.0 0.0 WBC Differential . . Differential Comment Auto diff final Auto diff final Lab - Chemistry Results 05/27/18 05/28/18 05/28/18 16:30 05:38 15:53 Sodium 157 H* Potassium 3.4 L 3.7 Chloride 120 H Carbon Dioxide 28.7 Anion Gap 8 BUN 59 H Creatinine 1.16 H Estimated GFR 45 L POC Glucose 159 H Random Glucose 136 H Calcium 9.0 Total Bilirubin 1.1 H AST 46 H ALT 67 H Alkaline Phosphatase 79 Troponin I Total Protein 6.1 L Albumin 3.2 L 05/28/18 05/29/18 23:08 04:24 Sodium 157 H* 157 H* Potassium 3.8 3.7 Chloride 122 H 121 H Carbon Dioxide 29.0 27.8 Anion Gap 6 8 BUN 58 H 56 H Creatinine 1.06 H 1.08 H Estimated GFR 50 L 49 L POC Glucose Random Glucose 124 H 115 H Calcium 7.9 L D 8.1 L Total Bilirubin 0.8 AST 52 H ALT 100 H Alkaline Phosphatase 90 Troponin I 0.11 H Total Protein 6.1 L Albumin 2.7 L Imaging: ITS Impressions GI Bleed Scan Nuclear Medicine 05/19/18 00:00 CONCLUSION: 1. 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 Patient was emergently brought to the interventional radiology department from the nuclear medicine department for angiography and intervention. Mesenteric Arteriogram 05/19/18 14:37 CONCLUSION: 1. 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 2. 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 PICC Line Insertion 05/20/18 00:00 CONCLUSION: 1. Uncomplicated central venous Power PICC line placement. 2. The PICC line can be used immediately. Abdomen/Pelvis CT 05/20/18 18:16 CONCLUSION: 1. Nonspecific, nonobstructive bowel gas pattern which may represent a mild ileus or be related to the recent endoscopy and insufflation of air. There is no focal wall thickening or inflammatory change. There is no free air or fluid. 2. Nonobstructing left renal calculi. 3. Small effusions and mild consolidative opacity in both lung bases. Chest X-Ray 05/28/18 00:00 CONCLUSION: Underinflation with minimal bibasilar opacity most likely representing atelectasis. This finding is improved since the 05/25/2018 examination. There are no findings to suggest aspiration. Abdomen X-Ray 05/28/18 05:23 CONCLUSION: No dilated bowel loops. Physical Exam: GENERAL: NAD SKIN: Warm and dry. HEAD: Atraumatic. Normocephalic. EYES: Pupils equal and round. No scleral icterus. No injection or drainage. ENT: No nasal bleeding or discharge. Mucous membranes pink and moist. NECK: Trachea midline. No JVD. CARDIOVASCULAR: Regular rate and rhythm. RESPIRATORY: No accessory muscle use. Clear to auscultation. Breath sounds equal bilaterally. GASTROINTESTINAL: Abdomen soft, tender, quite distended. surgre dressing in place [place] drain in LLQ with serosaung d/c MUSCULOSKELETAL: Extremities without clubbing, cyanosis, or edema. No obvious deformities. NEUROLOGICAL: awake, opens eyes, makes eye contact PSYCHIATRIC: calm , cooperative Assessment and Plan - Plan GI bleeding POD3 exploratory laparotomy, gastrojejunostomy, closure, j tube Acute VDRF fever, leukocytosis - persistend Suspected gram negative PNA Ileus ? Intraabdominal HIgh grade GPC bacteremia yoni RN yoni vallejo daughter
--- NOTE | 2018-05-29 11:54 | P.PNID ---
Subjective Remarks: pt is stable today, no high fevers T max yday was 102 + blood culx 3/4 bottles for GPC o/w doing OK still having ileus not started on TF cont to have maroone stool, C.dif f neg Antibiotics: zyvox micafungin flagyl azactam Allergies/Adverse Reactions: Allergies Sulfa (Sulfonamide Antibiotics) Allergy (Severe, Verified 05/17/18 03:34) Anaphylaxis amoxicillin Allergy (Mild, Verified 05/17/18 03:34) nausea codeine Allergy (Mild, Verified 05/17/18 03:34) constipation Objective Vital Signs 05/28/18 12:00 05/28/18 12:15 05/28/18 12:30 Temperature Pulse Rate 109 H 108 H 104 H Respiratory Rate Blood Pressure 139/63 153/70 H 138/59 L Pulse Oximetry 97 98 97 05/28/18 12:45 05/28/18 13:00 05/28/18 13:15 Temperature Pulse Rate 104 H 105 H 111 H Respiratory Rate Blood Pressure 135/63 143/65 H 153/69 H Pulse Oximetry 97 97 98 05/28/18 13:30 05/28/18 13:45 05/28/18 14:00 Temperature Pulse Rate 110 H 108 H 110 H Respiratory Rate Blood Pressure 157/72 H 146/69 H 154/70 H Pulse Oximetry 98 98 98 05/28/18 14:15 05/28/18 14:30 05/28/18 14:45 Temperature Pulse Rate 108 H 112 H 113 H Respiratory Rate Blood Pressure 151/68 H 154/69 H 142/63 H Pulse Oximetry 98 98 98 05/28/18 15:00 05/28/18 15:15 05/28/18 15:30 Temperature Pulse Rate 115 H 115 H 115 H Respiratory Rate Blood Pressure 150/69 H 152/70 H 151/70 H Pulse Oximetry 98 98 98 05/28/18 15:45 05/28/18 15:50 05/28/18 16:00 Temperature 102.2 F H Pulse Rate 115 H 117 H Respiratory Rate 17 Blood Pressure 153/72 H 155/69 H Pulse Oximetry 98 97 97 05/28/18 16:15 05/28/18 16:30 05/28/18 16:45 Temperature Pulse Rate 113 H 117 H 116 H Respiratory Rate Blood Pressure 141/65 H 141/64 H 139/63 Pulse Oximetry 97 97 97 05/28/18 17:00 05/28/18 17:15 05/28/18 17:21 Temperature Pulse Rate 116 H 122 H 117 H Respiratory Rate Blood Pressure 142/63 H 151/70 H Pulse Oximetry 97 97 05/28/18 17:30 05/28/18 17:45 05/28/18 18:00 Temperature Pulse Rate 114 H 113 H 114 H Respiratory Rate Blood Pressure 137/63 124/56 L 130/62 Pulse Oximetry 97 97 97 05/28/18 18:15 05/28/18 18:30 05/28/18 18:45 Temperature Pulse Rate 115 H 109 H 112 H Respiratory Rate Blood Pressure 141/64 H 126/61 141/64 H Pulse Oximetry 97 97 97 05/28/18 19:00 05/28/18 19:15 05/28/18 19:30 Temperature Pulse Rate 108 H 109 H 110 H Respiratory Rate Blood Pressure 128/63 132/62 138/63 Pulse Oximetry 97 97 97 05/28/18 19:45 05/28/18 20:00 05/28/18 20:15 Temperature 99.8 F H Pulse Rate 108 H 110 H 110 H Respiratory Rate Blood Pressure 133/61 162/75 H 142/61 H Pulse Oximetry 97 98 98 05/28/18 20:30 05/28/18 20:45 05/28/18 21:00 Temperature 98.2 F Pulse Rate 109 H 106 H 108 H Respiratory Rate Blood Pressure 131/60 132/61 131/61 Pulse Oximetry 97 97 97 05/28/18 21:15 05/28/18 21:30 05/28/18 21:45 Temperature Pulse Rate 107 H 108 H 108 H Respiratory Rate Blood Pressure 141/65 H 138/65 147/66 H Pulse Oximetry 97 97 97 05/28/18 21:53 05/28/18 22:00 05/28/18 22:15 Temperature Pulse Rate 107 H 108 H Respiratory Rate 15 Blood Pressure 139/65 146/66 H Pulse Oximetry 98 98 97 05/28/18 22:30 05/28/18 22:45 05/28/18 23:00 Temperature Pulse Rate 108 H 109 H 106 H Respiratory Rate Blood Pressure 134/63 154/70 H Pulse Oximetry 97 97 97 05/28/18 23:06 05/28/18 23:15 05/28/18 23:30 Temperature Pulse Rate 106 H 102 H 106 H Respiratory Rate Blood Pressure 142/65 H Pulse Oximetry 97 97 97 05/28/18 23:45 05/28/18 23:50 05/29/18 00:00 Temperature 99.8 F H Pulse Rate 106 H 103 H Respiratory Rate 14 Blood Pressure Pulse Oximetry 99 97 97 05/29/18 00:06 05/29/18 00:15 05/29/18 00:30 Temperature Pulse Rate 102 H 97 H 95 H Respiratory Rate Blood Pressure 136/63 Pulse Oximetry 97 97 97 05/29/18 00:45 05/29/18 01:00 05/29/18 01:06 Temperature Pulse Rate 98 H 93 H 93 H Respiratory Rate Blood Pressure 128/60 Pulse Oximetry 97 97 97 05/29/18 01:15 05/29/18 01:30 05/29/18 01:45 Temperature Pulse Rate 92 H 93 H 94 H Respiratory Rate Blood Pressure Pulse Oximetry 97 97 98 05/29/18 02:00 05/29/18 02:06 05/29/18 02:15 Temperature Pulse Rate 93 H 93 H 92 H Respiratory Rate Blood Pressure 121/60 Pulse Oximetry 98 98 98 05/29/18 02:30 05/29/18 02:45 05/29/18 03:00 Temperature Pulse Rate 92 H 93 H 94 H Respiratory Rate Blood Pressure Pulse Oximetry 98 97 98 05/29/18 03:06 05/29/18 03:15 05/29/18 03:30 Temperature Pulse Rate 94 H 99 H 97 H Respiratory Rate Blood Pressure 140/67 Pulse Oximetry 98 97 96 05/29/18 03:45 05/29/18 04:00 05/29/18 04:06 Temperature 98.8 F Pulse Rate 104 H 105 H 107 H Respiratory Rate Blood Pressure 152/72 H Pulse Oximetry 97 97 97 05/29/18 04:15 05/29/18 04:30 05/29/18 04:33 Temperature Pulse Rate 107 H 110 H Respiratory Rate 19 Blood Pressure Pulse Oximetry 97 98 98 05/29/18 04:45 05/29/18 05:00 05/29/18 05:06 Temperature Pulse Rate 110 H 108 H 109 H Respiratory Rate Blood Pressure 154/71 H Pulse Oximetry 97 97 97 05/29/18 05:15 05/29/18 05:30 05/29/18 05:45 Temperature Pulse Rate 111 H 108 H 109 H Respiratory Rate Blood Pressure Pulse Oximetry 98 96 97 05/29/18 06:00 05/29/18 06:06 05/29/18 06:15 Temperature Pulse Rate 109 H 108 H 109 H Respiratory Rate Blood Pressure 141/65 H Pulse Oximetry 97 97 96 05/29/18 06:30 05/29/18 08:00 05/29/18 10:04 Temperature Pulse Rate 107 H Respiratory Rate 21 28 H Blood Pressure Pulse Oximetry 97 98 96 Intake & Output 05/28/18 05/29/18 05/29/18 18:59 06:59 18:59 Intake Total 335 / 335 500 / 500 400 / 400 Output Total 2970 / 2970 2670 / 2670 Balance -2635 / -2635 -2170 / -2170 400 / 400 Intake: IV 335 / 335 500 / 500 400 / 400 Cleviprex Inj 25 mg In 50 ml @ 35 / 35 1 MG/HR 2 mls/hr IV.CONT TITRATE PRN Rx#:[id number] Protonix Inj 80 MG In NS Inj 100 / 100 100 / 100 100 / 100 100 ML @ 10 mls/hr IV.CONT Q10H [facility]ERY Rx#:[id number] Azactam Inj 2 GM In NS Inj 100 100 / 100 200 / 200 100 / 100 ML @ 200 mls/hr IV.SIG Q8H VALERY Rx#:[id number] Magnesium Sulfate Inj 2 GM In 100 / 100 NS Inj 96 ML @ 50 mls/hr IV.SIG UNSCH PRN Rx#:[id number] Mycamine Inj 150 MG In NS Inj 100 / 100 100 ML @ 100 mls/hr IV.SIG Q24H VALERY Rx#:[id number] KCl 20 mEq Premix Inj 20 meq In 100 / 100 100 ml @ 50 mls/hr IV.SIG Q2H VALERY Rx#:[id number] Output: Urine 1550 / 1550 Stool 100 / 100 200 / 200 Urine Amount (Catheter) 1700 / 1700 Indwelling Urethral Catheter 1700 / 1700 Gastric Drainage 1300 / 1300 750 / 750 Right Nare Nasogastric Tube 1300 / 1300 750 / 750 Wound Drainage 20 / 20 20 / 20 # 2 Left Abdomen 20 / 20 20 / 20 Other: Date of Last Bowel Movement 05/28/18 05/28/18 10:27 Blood - Peripheral Aerobic Blood Culture - Preliminary gram positive cocci 05/28/18 10:27 Blood - Peripheral Anaerobic Blood Culture - Preliminary No growth in 1 day 05/28/18 10:33 Blood - Peripheral Aerobic Blood Culture - Preliminary gram positive cocci 05/28/18 10:33 Blood - Peripheral Anaerobic Blood Culture - Preliminary gram positive cocci 05/27/18 09:13 Catheterized Urine Urine Culture - Final No growth in 48 hours 05/27/18 09:13 Sputum - Endotracheal Gram Stain - Final 05/27/18 09:13 Sputum - Endotracheal Sputum Culture - Final Citrobacter species Staphylococcus aureus Lab - Hematology Results 05/28/18 05/29/18 05:38 04:24 WBC 21.5 H 22.0 H RBC 3.32 L 3.43 L Hgb 9.8 L 10.0 L Hct 29.6 L 30.8 L MCV 89.1 89.7 MCH 29.4 29.1 MCHC 33.0 32.5 RDW 16.1 16.3 Plt Count 127 L 108 L MPV 9.5 9.4 Neut % (Auto) 95.9 H 94.4 H Lymph % (Auto) 0.9 L 1.8 L [place] % (Auto) 3.1 3.6 Eos % (Auto) 0.0 0.0 Baso % (Auto) 0.1 0.2 Neut # (Auto) 20.6 H 20.7 H Lymph # (Auto) 0.2 L 0.4 L [place] # (Auto) 0.7 0.8 Eos # (Auto) 0.0 0.0 Baso # (Auto) 0.0 0.0 WBC Differential . . Differential Comment Auto diff final Auto diff final Lab - Chemistry Results 05/27/18 05/28/18 05/28/18 16:30 05:38 15:53 Sodium 157 H* Potassium 3.4 L 3.7 Chloride 120 H Carbon Dioxide 28.7 Anion Gap 8 BUN 59 H Creatinine 1.16 H Estimated GFR 45 L POC Glucose 159 H Random Glucose 136 H Calcium 9.0 Total Bilirubin 1.1 H AST 46 H ALT 67 H Alkaline Phosphatase 79 Troponin I Total Protein 6.1 L Albumin 3.2 L 05/28/18 05/29/18 23:08 04:24 Sodium 157 H* 157 H* Potassium 3.8 3.7 Chloride 122 H 121 H Carbon Dioxide 29.0 27.8 Anion Gap 6 8 BUN 58 H 56 H Creatinine 1.06 H 1.08 H Estimated GFR 50 L 49 L POC Glucose Random Glucose 124 H 115 H Calcium 7.9 L D 8.1 L Total Bilirubin 0.8 AST 52 H ALT 100 H Alkaline Phosphatase 90 Troponin I 0.11 H Total Protein 6.1 L Albumin 2.7 L Imaging: ITS Impressions GI Bleed Scan Nuclear Medicine 05/19/18 00:00 CONCLUSION: 1. 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 Patient was emergently brought to the interventional radiology department from the nuclear medicine department for angiography and intervention. Mesenteric Arteriogram 05/19/18 14:37 CONCLUSION: 1. 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 2. 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 PICC Line Insertion 05/20/18 00:00 CONCLUSION: 1. Uncomplicated central venous Power PICC line placement. 2. The PICC line can be used immediately. Abdomen/Pelvis CT 05/20/18 18:16 CONCLUSION: 1. Nonspecific, nonobstructive bowel gas pattern which may represent a mild ileus or be related to the recent endoscopy and insufflation of air. There is no focal wall thickening or inflammatory change. There is no free air or fluid. 2. Nonobstructing left renal calculi. 3. Small effusions and mild consolidative opacity in both lung bases. Chest X-Ray 05/28/18 00:00 CONCLUSION: Underinflation with minimal bibasilar opacity most likely representing atelectasis. This finding is improved since the 05/25/2018 examination. There are no findings to suggest aspiration. Abdomen X-Ray 05/28/18 05:23 CONCLUSION: No dilated bowel loops. Physical Exam: GENERAL: NAD SKIN: Warm and dry. HEAD: Atraumatic. Normocephalic. EYES: Pupils equal and round. No scleral icterus. No injection or drainage. ENT: No nasal bleeding or discharge. Mucous membranes pink and moist. NECK: Trachea midline. No JVD. CARDIOVASCULAR: Regular rate and rhythm. RESPIRATORY: No accessory muscle use. Clear to auscultation. Breath sounds equal bilaterally. GASTROINTESTINAL: Abdomen soft, tender, quite distended. surgre dressing in place [place] drain in LLQ with serosaung d/c MUSCULOSKELETAL: Extremities without clubbing, cyanosis, or edema. No obvious deformities. NEUROLOGICAL: awake, opens eyes, makes eye contact PSYCHIATRIC: calm , cooperative Assessment and Plan - Plan GI bleeding POD3 exploratory laparotomy, gastrojejunostomy, closure, j tube Acute VDRF fever, leukocytosis - persistend Suspected gram negative PNA Ileus ? Intraabdominal HIgh grade GPC bacteremia will add vancomycin for bacteremia cont other abx CBC CMP CT abd/pel/chest dw RN dw Dr Isiah vallejo daughter
[2018-05-29] MEDS: Vancomycin Inj 1,000 MG in Sodium Chlor 0.9% Inj 250 ML IV.SIG SCH (12:44)
--- NOTE | 2018-05-29 14:39 | P.PNGS ---
Subjective Patient reports: other (Patient much more alert. Responds appropriately to questions asked by nodding or shaking her head. Denies being in any pain.) Physical Exam Vital signs: Vital Signs 05/28/18 14:45 05/28/18 15:00 05/28/18 15:15 Temperature Pulse Rate 113 H 115 H 115 H Respiratory Rate Blood Pressure 142/63 H 150/69 H 152/70 H Pulse Oximetry 98 98 98 05/28/18 15:30 05/28/18 15:45 05/28/18 15:50 Temperature Pulse Rate 115 H 115 H Respiratory Rate 17 Blood Pressure 151/70 H 153/72 H Pulse Oximetry 98 98 97 05/28/18 16:00 05/28/18 16:15 05/28/18 16:30 Temperature 102.2 F H Pulse Rate 117 H 113 H 117 H Respiratory Rate Blood Pressure 155/69 H 141/65 H 141/64 H Pulse Oximetry 97 97 97 05/28/18 16:45 05/28/18 17:00 05/28/18 17:15 Temperature Pulse Rate 116 H 116 H 122 H Respiratory Rate Blood Pressure 139/63 142/63 H 151/70 H Pulse Oximetry 97 97 97 05/28/18 17:21 05/28/18 17:30 05/28/18 17:45 Temperature Pulse Rate 117 H 114 H 113 H Respiratory Rate Blood Pressure 137/63 124/56 L Pulse Oximetry 97 97 05/28/18 18:00 05/28/18 18:15 05/28/18 18:30 Temperature Pulse Rate 114 H 115 H 109 H Respiratory Rate Blood Pressure 130/62 141/64 H 126/61 Pulse Oximetry 97 97 97 05/28/18 18:45 05/28/18 19:00 05/28/18 19:15 Temperature Pulse Rate 112 H 108 H 109 H Respiratory Rate Blood Pressure 141/64 H 128/63 132/62 Pulse Oximetry 97 97 97 05/28/18 19:30 05/28/18 19:45 05/28/18 20:00 Temperature 99.8 F H Pulse Rate 110 H 108 H 110 H Respiratory Rate Blood Pressure 138/63 133/61 162/75 H Pulse Oximetry 97 97 98 05/28/18 20:15 05/28/18 20:30 05/28/18 20:45 Temperature Pulse Rate 110 H 109 H 106 H Respiratory Rate Blood Pressure 142/61 H 131/60 132/61 Pulse Oximetry 98 97 97 05/28/18 21:00 05/28/18 21:15 05/28/18 21:30 Temperature 98.2 F Pulse Rate 108 H 107 H 108 H Respiratory Rate Blood Pressure 131/61 141/65 H 138/65 Pulse Oximetry 97 97 97 05/28/18 21:45 05/28/18 21:53 05/28/18 22:00 Temperature Pulse Rate 108 H 107 H Respiratory Rate 15 Blood Pressure 147/66 H 139/65 Pulse Oximetry 97 98 98 05/28/18 22:15 05/28/18 22:30 05/28/18 22:45 Temperature Pulse Rate 108 H 108 H 109 H Respiratory Rate Blood Pressure 146/66 H 134/63 154/70 H Pulse Oximetry 97 97 97 05/28/18 23:00 05/28/18 23:06 05/28/18 23:15 Temperature Pulse Rate 106 H 106 H 102 H Respiratory Rate Blood Pressure 142/65 H Pulse Oximetry 97 97 97 05/28/18 23:30 05/28/18 23:45 05/28/18 23:50 Temperature Pulse Rate 106 H 106 H Respiratory Rate 14 Blood Pressure Pulse Oximetry 97 99 97 05/29/18 00:00 05/29/18 00:06 05/29/18 00:15 Temperature 99.8 F H Pulse Rate 103 H 102 H 97 H Respiratory Rate Blood Pressure 136/63 Pulse Oximetry 97 97 97 05/29/18 00:30 05/29/18 00:45 05/29/18 01:00 Temperature Pulse Rate 95 H 98 H 93 H Respiratory Rate Blood Pressure Pulse Oximetry 97 97 97 05/29/18 01:06 05/29/18 01:15 05/29/18 01:30 Temperature Pulse Rate 93 H 92 H 93 H Respiratory Rate Blood Pressure 128/60 Pulse Oximetry 97 97 97 05/29/18 01:45 05/29/18 02:00 05/29/18 02:06 Temperature Pulse Rate 94 H 93 H 93 H Respiratory Rate Blood Pressure 121/60 Pulse Oximetry 98 98 98 05/29/18 02:15 05/29/18 02:30 05/29/18 02:45 Temperature Pulse Rate 92 H 92 H 93 H Respiratory Rate Blood Pressure Pulse Oximetry 98 98 97 05/29/18 03:00 05/29/18 03:06 05/29/18 03:15 Temperature Pulse Rate 94 H 94 H 99 H Respiratory Rate Blood Pressure 140/67 Pulse Oximetry 98 98 97 05/29/18 03:30 05/29/18 03:45 05/29/18 04:00 Temperature 98.8 F Pulse Rate 97 H 104 H 105 H Respiratory Rate Blood Pressure Pulse Oximetry 96 97 97 05/29/18 04:06 05/29/18 04:15 05/29/18 04:30 Temperature Pulse Rate 107 H 107 H 110 H Respiratory Rate Blood Pressure 152/72 H Pulse Oximetry 97 97 98 05/29/18 04:33 05/29/18 04:45 05/29/18 05:00 Temperature Pulse Rate 110 H 108 H Respiratory Rate 19 Blood Pressure Pulse Oximetry 98 97 97 05/29/18 05:06 05/29/18 05:15 05/29/18 05:30 Temperature Pulse Rate 109 H 111 H 108 H Respiratory Rate Blood Pressure 154/71 H Pulse Oximetry 97 98 96 05/29/18 05:45 05/29/18 06:00 05/29/18 06:06 Temperature Pulse Rate 109 H 109 H 108 H Respiratory Rate Blood Pressure 141/65 H Pulse Oximetry 97 97 97 05/29/18 06:15 05/29/18 06:30 05/29/18 08:00 Temperature Pulse Rate 109 H 107 H Respiratory Rate 21 Blood Pressure Pulse Oximetry 96 97 98 05/29/18 10:04 05/29/18 13:35 Temperature Pulse Rate Respiratory Rate 28 H 14 Blood Pressure Pulse Oximetry 96 98 Intake & Output 05/28/18 05/29/18 05/29/18 18:59 06:59 18:59 Intake Total 335 / 335 500 / 500 400 / 400 Output Total 2970 / 2970 2670 / 2670 Balance -2635 / -2635 -2170 / -2170 400 / 400 Intake: IV 335 / 335 500 / 500 400 / 400 Cleviprex Inj 25 mg In 50 ml @ 35 / 35 1 MG/HR 2 mls/hr IV.CONT TITRATE PRN Rx#:[id number] Protonix Inj 80 MG In NS Inj 100 / 100 100 / 100 100 / 100 100 ML @ 10 mls/hr IV.CONT Q10H VALERY Rx#:[id number] Azactam Inj 2 GM In NS Inj 100 100 / 100 200 / 200 100 / 100 ML @ 200 mls/hr IV.SIG Q8H VALERY Rx#:[id number] Magnesium Sulfate Inj 2 GM In 100 / 100 NS Inj 96 ML @ 50 mls/hr IV.SIG UNSCH PRN Rx#:[id number] Mycamine Inj 150 MG In NS Inj 100 / 100 100 ML @ 100 mls/hr IV.SIG Q24H VALERY Rx#:[id number] KCl 20 mEq Premix Inj 20 meq In 100 / 100 100 ml @ 50 mls/hr IV.SIG Q2H VALERY Rx#:[id number] Output: Urine 1550 / 1550 Stool 100 / 100 200 / 200 Urine Amount (Catheter) 1700 / 1700 Indwelling Urethral Catheter 1700 / 1700 Gastric Drainage 1300 / 1300 750 / 750 Right Nare Nasogastric Tube 1300 / 1300 750 / 750 Wound Drainage 20 / 20 20 / 20 # 2 Left Abdomen 20 / 20 20 / 20 Other: Date of Last Bowel Movement 05/28/18 Narrative: Her abdomen was thoroughly examined shama dressing was removed. Her incision is intact. About 6 mel were removed. Below the umbilicus about skilled nursing to the bottom of her incision there was drainage of liquefied hematoma. There is no purulent nature to the drainage. All of it was expressed out which total may be 10-15 cc. A new shama dressing was applied in a standard fashion and connected to the suction without evidence of leak. Jejunostomy tube site looked fine. Unfortunately tube feeds were off. The bedside RN said it was communicated to her last night that because of some emesis the tube feeds were to be stopped. This is incorrect. My nurse practitioner indicated the tube feeds should be restarted this morning, they still have not been restarted. This was reiterated to the bedside nurse this afternoon. We communicated with Dr. Joyce, he also did not understand why the tube feed would be stopped. The DAKOTA drain was draining yellow serous fluid. Extremities were less edematous. - Urinary Catheter Management Indwelling Urethral Catheter Cath placed during this visit: yes Reason for continuing: Acute urinary retention Insertion date: 05/20/18 Insertion time: 19:55 Results - Labs 05/29/18 04:24 05/29/18 04:24 Laboratory Results - last 24 hr 1205/28/18 05/28/18 15:53 17:22 23:08 WBC RBC Hgb Hct MCV MCH MCHC RDW Plt Count MPV Neut % (Auto) Lymph % (Auto) [place] % (Auto) Eos % (Auto) Baso % (Auto) Neut # (Auto) Lymph # (Auto) [place] # (Auto) Eos # (Auto) Baso # (Auto) WBC Differential Differential Comment Sodium 157 H* Potassium 3.8 Chloride 122 H Carbon Dioxide 29.0 Anion Gap 6 BUN 58 H Creatinine 1.06 H Estimated GFR 50 L POC Glucose 159 H Random Glucose 124 H Calcium 7.9 L D Total Bilirubin AST ALT Alkaline Phosphatase Troponin I 0.11 H Total Protein Albumin Stl C.difficile DNA Amp Negative St C. diff Tox Epid 027 Negative 05/29/18 05/29/18 04:24 04:24 WBC 22.0 H RBC 3.43 L Hgb 10.0 L Hct 30.8 L MCV 89.7 MCH 29.1 MCHC 32.5 RDW 16.3 Plt Count 108 L MPV 9.4 Neut % (Auto) 94.4 H Lymph % (Auto) 1.8 L [place] % (Auto) 3.6 Eos % (Auto) 0.0 Baso % (Auto) 0.2 Neut # (Auto) 20.7 H Lymph # (Auto) 0.4 L [place] # (Auto) 0.8 Eos # (Auto) 0.0 Baso # (Auto) 0.0 WBC Differential . Differential Comment Auto diff final Sodium 157 H* Potassium 3.7 Chloride 121 H Carbon Dioxide 27.8 Anion Gap 8 BUN 56 H Creatinine 1.08 H Estimated GFR 49 L POC Glucose Random Glucose 115 H Calcium 8.1 L Total Bilirubin 0.8 AST 52 H ALT 100 H Alkaline Phosphatase 90 Troponin I Total Protein 6.1 L Albumin 2.7 L Stl C.difficile DNA Amp St C. diff Tox Epid 027 - Imaging Imaging: ITS Impressions GI Bleed Scan Nuclear Medicine 05/19/18 00:00 CONCLUSION: 1. 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 Patient was emergently brought to the interventional radiology department from the nuclear medicine department for angiography and intervention. Mesenteric Arteriogram 05/19/18 14:37 CONCLUSION: 1. 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 2. 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 PICC Line Insertion 05/20/18 00:00 CONCLUSION: 1. Uncomplicated central venous Power PICC line placement. 2. The PICC line can be used immediately. Abdomen/Pelvis CT 05/20/18 18:16 CONCLUSION: 1. Nonspecific, nonobstructive bowel gas pattern which may represent a mild ileus or be related to the recent endoscopy and insufflation of air. There is no focal wall thickening or inflammatory change. There is no free air or fluid. 2. Nonobstructing left renal calculi. 3. Small effusions and mild consolidative opacity in both lung bases. Chest X-Ray 05/28/18 00:00 CONCLUSION: Underinflation with minimal bibasilar opacity most likely representing atelectasis. This finding is improved since the 05/25/2018 examination. There are no findings to suggest aspiration. Abdomen X-Ray 05/28/18 05:23 CONCLUSION: No dilated bowel loops. Assessment and Plan - Assessment (1) GI bleed Code(s): K92.2 - Gastrointestinal hemorrhage, unspecified Status: Acute Plan: 82 year old female POD3 exploratory laparotomy, gastrojejunostomy, closure, j tube -Tolerating TF at goal of 55 cc/hr -Vent per CCM -Okay to start anticoagulation from GS standpoint ---discussed with LUDWIG Ceja -Wean sedation as tolerated - Plan I personally evaluated the patient in room 1309. She remains ventilated and somewhat sedated. I did ask her to squeeze my fingers and I believe she did so and responded appropriately squeezing my fingers with her left hand. Her eyes were partially opened and she moved her head around but could not get her to wiggle her toes in response to verbal request. Her nasogastric tube has primarily bilious fluid. Her breath sounds were clear and equal anteriorly bilaterally. Her abdomen remains somewhat distended yet soft. The shama dressing is intact with tiny spot of dried drainage on it. J-tube exit site is clean she is tolerating tube feeds now at 50 an hour. She does have a large amount of liquid dark brown stool in the Flexi-Seal bag. Her DAKOTA drain is draining yellow serous drainage with occasional clot in it. Her extreme extremities remain mildly edematous. Her hemoglobin was 9.3 today. Her platelet count was 117. I do not believe she is demonstrating signs of any active bleeding at this time. 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 Slow ventilator weaning as the patient failed a CPAP trial yesterday. Continue diuresis. Continue to support low potassium. Plan shama dressing change on Friday. Continue current support. I discussed in detail the patient's status yesterday afternoon with the patient's daughter, Raciel Conley, by telephone. 05/28/2018 I personally evaluated the patient in room 1309. She remains ventilated. She does move her head about. 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 She has been vomiting around her nasogastric tube which is disconcerting as I cannot explain why a normally functioning G-tube would not prevent vomiting around it. Plain x-ray of the chest was evaluated I see no evidence of pneumonia abdominal x-ray shows no gastric distention and a normal bowel gas pattern no signs of obstruction. I would prefer that her feeding jejunostomy be used only for tube feeding and flushes and not for medications as this only potentially leads to occlusion of the feeding jejunostomy. This is her only access for enteral nutrition. Antibiotic therapy should be directed towards the results from cultures. A contrast study through her nasogastric tube could be performed to ensure patency of the tube as well as her new gastrojejunostomy. I discussed her case with her daughter Raciel Conley. While I see no evidence of postsurgical complication, and 82 years old with multiple autoimmune issues recovery from her GI bleed and surgical interventions can take longer than we would wish. Continue current supportive therapy. 05/29/2018 Postop duodenal resection including diverticulum and proximal jejunum which was ischemic. Postop gastrojejunostomy feeding jejunostomy and closure of abdominal wall. Now with sputum and blood cultures positive for Citrobacter and gram-positive cocci. Vancomycin and IV antibiotics started by infectious disease. Plan restart tube feeds. Do not start stop tube feeds for emesis or increase nasogastric drainage as the feeding jejunostomy is 40 cm distal to the gastrojejunostomy. Patient's bowel and bladder appear to be functioning normally. Her hemoglobin is stable. Her platelet count is very minimally decreased. Steroid taper continues. Plan continue supportive therapy. I discussed yesterday with her daughter keeping a tracheostomy in the back of her mind as a possibility if the patient is unable to be weaned to extubation. There is nothing to do for the small liquefied hematoma from the wound, shama dressing will be continued and followed closely.
[2018-05-29] MEDS: Micafungin Inj 150 MG in Sodium Chlor 0.9% Inj 100 ML IV.SIG SCH (20:39)
--- NOTE | 2018-05-29 22:57 | CT ---
EXAM DATE: 05/29/2018 10:50 PM EST AGE/SEX: 82 years / Female INDICATIONS: Pneumonia and fever. CLINICAL DATA: This is the patient's subsequent encounter. Patient reports that signs and symptoms h ave been present for 4 - 6 days and indicates a pain score of Nonresponsive. MEDICAL/SURGICAL HISTORY: Carcinoma, lung. Amyloidosis, Sjoegren syndrome Lobectomy. Coronary art melany stent. RADIATION DOSE: 6.08 CTDI (mGy) ; Combined studies COMPARISON: [facility], CT CHEST W/ CONTRAST, 01/28/2018. . TECHNIQUE: Multiple contiguous axial images were obtained through the chest without contrast. Image s were obtained in suspended respiration using multiple row detector helical technique. Using automa rosalina exposure control and adjustment of the mA and/or kV according to patient size, radiation dose was kept as low as reasonably achievable to obtain optimal diagnostic quality images. DICOM format imag e data is available electronically for review and comparison. FINDINGS: There is a 3.3 cm masslike opacity in the right hilum. There is mild narrowing of the right middle lo be and lower lobe bronchi. A 6.7 cm area of dense consolidation is seen in the right lower lobe and t here is associated volume loss. Emphysematous changes are again noted. Left lung is clear. No pleural effusion or pneumothorax. Mild panchamber enlargement of the heart again noted. There is diffuse coronary artery calcification. A nasogastric tube is present with tip in the distal stomach. CONCLUSION: 1. 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 2. Pneumonia with volume loss in the right lower lobe. 3. Coronary artery calcification. 4. Emphysema. Electronically signed by: Jamar Frazier MD 05/29/2018 10:56 PM EST
--- NOTE | 2018-05-29 23:05 | CT ---
EXAM DATE: 05/29/2018 10:51 PM EST AGE/SEX: 82 years / Female INDICATIONS: Pneumonia and fever post lobectomy CLINICAL DATA: This is the patient's subsequent encounter. Patient reports that signs and symptoms h ave been present for 4 - 6 days and indicates a pain score of Nonresponsive. MEDICAL/SURGICAL HISTORY: Carcinoma, lung. Lobectomy. Coronary artery stent. RADIATION DOSE: 6.08 CTDI (mGy) ; Combined studies COMPARISON: [facility] – [place], [place] ABDOMEN & PELVIS W/O CONTRAST, 05/20/2018. . TECHNIQUE: Multiple contiguous axial images were obtained through the abdomen. Images were obtained using multiple row detector helical technique. Using automated exposure control and adjustment of the mA and/or kV according to patient size, radiation dose was kept as low as reasonably achievable to o btain optimal diagnostic quality images. DICOM format image data is available electronically for rev iew and comparison. FINDINGS: Noncontrast appearance of the liver, spleen, pancreas and adrenal glands is within normal limits. Sma ll cysts are seen of both kidneys. 2 mm left upper pole and 6 mm left lower pole nonobstructing stone s are again seen. There is small free fluid in the pelvic cul-de-sac. Mild edema seen at the root of the mesentery. No obstruction or focal inflammatory changes are seen of the gastrointestinal tract. Since the prior CT, a right lower quadrant jejunostomy tube has been placed without evidence of an acute complication. P artial gastrectomy with gastrojejunostomy since the prior study as well. No organized fluid. Metallic structure near the ligament of Treitz unchanged. There is diverticulosis of the sigmoid colon. There is a rectal tube. CONCLUSION: 1. Since the prior CT, midline laparotomy with gastrojejunostomy has been performed. Anastomosis derrek ears patent. There is a nasogastric tube which extends beyond the site of surgery and is in the first portion of the duodenum. Unchanged metallic structure near the ligament of Treitz, etiology uncertai n. 2. A jejunostomy tube has also been placed without evidence of an acute complication. 3. Small, nonspecific free fluid in the pelvic cavity. No evidence of abscess. 4. No acute solid organ abnormality. Cysts of both kidneys and nonobstructing stones of the left kid zaria are again noted. 5. Sigmoid colon diverticulosis without diverticulitis. Electronically signed by: Jamar Frazier MD 05/29/2018 11:04 PM EST
[2018-05-30] MEDS: Aztreonam Inj 2 GM in Sodium Chloride 0.9% Inj 100 ML IV.SIG SCH ×3 (01:34→17:41)
[2018-05-30] MEDS: fentaNYL 10 mcg/mL Premix Drip 2,500 MCG/250 ML BAG IV.SIG PRN ×2 (04:02→23:31)
--- NOTE | 2018-05-30 04:26 | XR ---
EXAM DATE: 05/30/2018 3:56 AM EST AGE/SEX: 82 years / Female INDICATIONS: Respiratory failure. Pneumonia. CLINICAL DATA: This is the patient's subsequent encounter. Patient reports that signs and symptoms h ave been present for 1 week and indicates a pain score of Nonresponsive. MEDICAL/SURGICAL HISTORY: . Carcinoma, lung. Amyloidosis, Sjogren syndrome. . Lobectomy. Aida nary artery stent. COMPARISON: [facility] – [place], CHEST 1V SINGLE AP, 05/28/2018. . FINDINGS: Endotracheal tube tip at the inferior margin of the clavicles. There is patchy airspace disease in th e medial lung bases bilaterally. This is stable. No effusions. Osseous structures are intact. CONCLUSION: Stable appearance of the chest. Electronically signed by: Satnam Fuentes MD 05/30/2018 4:25 AM EST
[2018-05-30 05:15] LABS: Baso % (Auto) 0.1 % (0.0-2.0); Eos % (Auto) 0.2 % (0.0-4.0); Hematocrit 30.2 % (35.0-46.0); Hemoglobin 9.7 gm/dL (11.6-15.3); Lymph # (Auto) 0.4 th/mm3 (1.0-4.8); Lymph % (Auto) 2.6 % (9.0-44.0); Mean Corpuscular Hemoglobin 29.1 pg (27.0-34.0); Mean Platelet Volume 9.6 fL (7.0-11.0); Mono # (Auto) 0.6 th/mm3 (0.0-0.9); Mono % (Auto) 3.5 % (0.0-8.0); Neut # (Auto) 15.8 th/mm3 (1.8-7.7); Neut % (Auto) 93.6 % (16.0-70.0); Platelet Count 105 th/mm3 (150-450); Red Blood Count 3.32 mil/mm3 (4.00-5.30); Red Cell Distribution Width 15.9 % (11.6-17.2); White Blood Count 16.9 th/mm3 (4.0-11.0)
[2018-05-30] MEDS: metroNIDAZOLE 500 MG Tablet J-TUBE SCH (05:37)
[2018-05-30 06:01] LABS: Alanine Aminotransferase 83 U/L (10-53); Albumin 2.5 g/dL (3.4-5.0); Alkaline Phosphatase 85 U/L (45-117); Anion Gap 7 meq/L (5-15); Aspartate Aminotransferase 28 U/L (15-37); Blood Urea Nitrogen 55 mg/dL (7-18); Calcium 8.3 mg/dL (8.5-10.1); Chloride 124 meq/L (98-107); Glomerular Filtration Rate 47 mL/min (>89); Glucose,Random 109 mg/dL (74-106); Potassium 3.4 meq/L (3.5-5.1); Total Protein 5.5 g/dL (6.4-8.2)
[2018-05-30 06:03] LABS: Sodium 157 meq/L (136-145)
[2018-05-30] MEDS: Pantoprazole Inj 80 MG in Sodium Chlor 0.9% Inj 100 ML IV.CONT SCH ×2 (06:24→17:41)
[2018-05-30] MEDS: amLODIPine 5 MG Tablet J-TUBE SCH (08:10)
[2018-05-30] MEDS: Senna/Docusate Sodium 8.6/50 MG Tablet PO SCH ×2 (08:10→20:09)
[2018-05-30] MEDS: MethylPREDNISolone Sod Succinate Inj 40 MG/ML Vial IV.PUSH SCH (08:10)
[2018-05-30] MEDS: Lidocaine 5% Patch T-DERMAL SCH (08:16)
[2018-05-30] MEDS: Potassium Chloride 25 MEQ Effervescent Tablet NG/OG SCH ×2 (08:18→20:08)
[2018-05-30] MEDS: Artificial Tears Opth Oint 3.5 GM Tube EACH EYE SCH ×2 (08:18→20:10)
[2018-05-30] MEDS: Heparin Central Flush 100 UNIT/ML 5 ML Vial IV.FLUSH SCH (08:19)
--- NOTE | 2018-05-30 08:35 | P.PNONC ---
Subjective Interval history: Afebrile, remains intubated, awake and alert. Follows with eyes and follows commands. Per RN decreased stool output. Objective Vital Signs/Intake & Output: Vital Signs 05/29/18 08:30 05/29/18 08:45 05/29/18 09:00 Temperature Pulse Rate 107 H 112 H 114 H Respiratory Rate Blood Pressure Pulse Oximetry 97 97 97 05/29/18 09:06 05/29/18 09:15 05/29/18 09:30 Temperature Pulse Rate 114 H 112 H 111 H Respiratory Rate Blood Pressure 160/73 H Pulse Oximetry 97 96 97 05/29/18 09:45 05/29/18 10:00 05/29/18 10:04 Temperature Pulse Rate 111 H 115 H Respiratory Rate 28 H Blood Pressure Pulse Oximetry 97 96 96 05/29/18 10:06 05/29/18 10:15 05/29/18 10:30 Temperature Pulse Rate 119 H 119 H 111 H Respiratory Rate Blood Pressure 147/65 H Pulse Oximetry 94 L 96 97 05/29/18 10:45 05/29/18 11:00 05/29/18 11:06 Temperature Pulse Rate 108 H 104 H 107 H Respiratory Rate Blood Pressure 161/70 H Pulse Oximetry 96 94 L 97 05/29/18 11:15 05/29/18 11:30 05/29/18 11:45 Temperature Pulse Rate 103 H 106 H 107 H Respiratory Rate Blood Pressure Pulse Oximetry 97 98 98 05/29/18 12:00 05/29/18 12:06 05/29/18 12:15 Temperature 98.8 F Pulse Rate 98 H 105 H 97 H Respiratory Rate 18 Blood Pressure 165/77 H 165/77 H Pulse Oximetry 98 98 98 05/29/18 12:30 05/29/18 12:45 05/29/18 13:00 Temperature Pulse Rate 97 H 96 H 97 H Respiratory Rate Blood Pressure Pulse Oximetry 98 98 98 05/29/18 13:06 05/29/18 13:15 05/29/18 13:30 Temperature Pulse Rate 96 H 95 H 97 H Respiratory Rate Blood Pressure 133/61 Pulse Oximetry 98 98 98 05/29/18 13:35 05/29/18 13:45 05/29/18 14:00 Temperature Pulse Rate 97 H 102 H Respiratory Rate 14 Blood Pressure Pulse Oximetry 98 98 98 05/29/18 14:06 05/29/18 14:15 05/29/18 14:30 Temperature Pulse Rate 104 H 104 H 103 H Respiratory Rate Blood Pressure 157/74 H Pulse Oximetry 98 98 98 05/29/18 14:45 05/29/18 15:00 05/29/18 15:06 Temperature Pulse Rate 97 H 95 H 96 H Respiratory Rate Blood Pressure 140/65 Pulse Oximetry 98 98 98 05/29/18 15:15 05/29/18 15:30 05/29/18 15:45 Temperature Pulse Rate 96 H 98 H 96 H Respiratory Rate Blood Pressure Pulse Oximetry 99 100 99 05/29/18 16:00 05/29/18 16:06 05/29/18 16:15 Temperature 98.4 F Pulse Rate 97 H 95 H 97 H Respiratory Rate 18 Blood Pressure 143/67 H 143/67 H Pulse Oximetry 98 98 99 05/29/18 16:21 05/29/18 16:30 05/29/18 16:45 Temperature Pulse Rate 96 H 97 H Respiratory Rate 24 Blood Pressure Pulse Oximetry 98 99 99 05/29/18 17:00 05/29/18 17:06 05/29/18 17:15 Temperature Pulse Rate 97 H 96 H 95 H Respiratory Rate Blood Pressure 159/75 H Pulse Oximetry 98 98 98 05/29/18 17:30 05/29/18 17:45 05/29/18 18:00 Temperature 99.4 F Pulse Rate 93 H 95 H 92 H Respiratory Rate 17 Blood Pressure Pulse Oximetry 98 98 98 05/29/18 18:06 05/29/18 18:15 05/29/18 18:30 Temperature Pulse Rate 93 H 94 H 114 H Respiratory Rate Blood Pressure 162/74 H Pulse Oximetry 98 99 97 05/29/18 18:32 05/29/18 18:45 05/29/18 19:00 Temperature Pulse Rate 102 H 96 H Respiratory Rate 17 Blood Pressure Pulse Oximetry 98 98 97 05/29/18 19:06 05/29/18 19:15 05/29/18 19:30 Temperature Pulse Rate 94 H 99 H 101 H Respiratory Rate Blood Pressure 134/63 Pulse Oximetry 97 98 98 05/29/18 19:45 05/29/18 20:00 05/29/18 20:06 Temperature 99 F Pulse Rate 93 H 89 91 H Respiratory Rate Blood Pressure 137/63 Pulse Oximetry 98 98 98 05/29/18 20:15 05/29/18 20:30 05/29/18 20:45 Temperature Pulse Rate 93 H 92 H 89 Respiratory Rate Blood Pressure Pulse Oximetry 98 98 98 05/29/18 20:54 05/29/18 21:00 05/29/18 21:06 Temperature Pulse Rate 93 H 96 H Respiratory Rate 15 Blood Pressure 153/72 H Pulse Oximetry 98 98 98 05/29/18 21:15 05/29/18 21:30 05/29/18 21:45 Temperature Pulse Rate 94 H 94 H 100 H Respiratory Rate Blood Pressure Pulse Oximetry 98 98 98 05/29/18 22:00 05/29/18 22:06 05/29/18 22:15 Temperature Pulse Rate 102 H 93 H 89 Respiratory Rate Blood Pressure 127/60 Pulse Oximetry 98 98 98 05/29/18 22:30 05/29/18 22:45 05/29/18 23:00 Temperature Pulse Rate 92 H 105 H 100 H Respiratory Rate Blood Pressure Pulse Oximetry 99 99 97 05/29/18 23:06 05/29/18 23:15 05/29/18 23:30 Temperature Pulse Rate 102 H 114 H 96 H Respiratory Rate Blood Pressure 151/72 H Pulse Oximetry 98 98 95 05/29/18 23:45 05/30/18 00:00 05/30/18 00:06 Temperature 98.8 F Pulse Rate 94 H 92 H 91 H Respiratory Rate Blood Pressure 120/59 L Pulse Oximetry 95 97 96 05/30/18 00:15 05/30/18 00:30 05/30/18 00:45 Temperature Pulse Rate 90 90 96 H Respiratory Rate Blood Pressure Pulse Oximetry 97 97 99 05/30/18 00:49 05/30/18 01:00 05/30/18 01:06 Temperature Pulse Rate 91 H 94 H Respiratory Rate 14 Blood Pressure 139/63 Pulse Oximetry 97 98 98 05/30/18 01:15 05/30/18 01:30 05/30/18 01:45 Temperature Pulse Rate 95 H 88 88 Respiratory Rate Blood Pressure Pulse Oximetry 98 98 95 05/30/18 02:00 05/30/18 02:06 05/30/18 02:15 Temperature Pulse Rate 86 85 86 Respiratory Rate Blood Pressure 107/59 L Pulse Oximetry 95 95 97 05/30/18 02:30 05/30/18 02:45 05/30/18 03:00 Temperature Pulse Rate 87 85 87 Respiratory Rate Blood Pressure Pulse Oximetry 97 97 98 05/30/18 03:06 05/30/18 03:15 05/30/18 03:30 Temperature Pulse Rate 80 85 92 H Respiratory Rate Blood Pressure 115/59 L Pulse Oximetry 97 97 97 05/30/18 03:45 05/30/18 03:51 05/30/18 04:00 Temperature 98 F Pulse Rate 94 H 94 H Respiratory Rate 17 Blood Pressure Pulse Oximetry 100 100 96 05/30/18 04:06 05/30/18 04:15 05/30/18 04:30 Temperature Pulse Rate 93 H 93 H 90 Respiratory Rate Blood Pressure 116/59 L Pulse Oximetry 95 96 96 05/30/18 04:45 05/30/18 05:00 05/30/18 05:06 Temperature Pulse Rate 89 90 92 H Respiratory Rate Blood Pressure 130/63 Pulse Oximetry 96 96 96 05/30/18 05:15 05/30/18 05:30 05/30/18 05:45 Temperature Pulse Rate 91 H 90 92 H Respiratory Rate Blood Pressure Pulse Oximetry 96 97 98 05/30/18 06:00 Temperature Pulse Rate 93 H Respiratory Rate Blood Pressure Pulse Oximetry 98 Intake & Output 05/29/18 05/30/18 05/30/18 18:59 06:59 18:59 Intake Total 1195 / 1195 806 / 806 Output Total 2100 / 2100 1900 / 1900 Balance -905 / -905 -1094 / -1094 Weight 82.5 kg Intake: IV 750 / 750 300 / 300 Protonix Inj 80 MG In NS Inj 100 / 100 100 / 100 100 ML @ 10 mls/hr IV.CONT Q10H [facility] Rx#:[id number] Azactam Inj 2 GM In NS Inj 100 200 / 200 100 / 100 ML @ 200 mls/hr IV.SIG Q8H [facility] Rx#:[id number] Mycamine Inj 150 MG In NS Inj 100 / 100 100 ML @ 100 mls/hr IV.SIG Q24H [facility] Rx#:[id number] Vancomycin Inj 1,000 MG In NS 250 / 250 Inj 250 ML @ 250 mls/hr IV.SIG Q24H [facility]ERY Rx#:[id number] Tube Feeding 85 / 85 246 / 246 Tube Irrigant 60 / 60 60 / 60 Water Bolus Amount 300 / 300 200 / 200 Output: Stool 200 / 200 Urine Amount (Catheter) 1450 / 1450 1300 / 1300 Indwelling Urethral Catheter 1450 / 1450 1300 / 1300 Gastric Drainage 450 / 450 600 / 600 Right Nare Nasogastric Tube 450 / 450 600 / 600 Other: Date of Last Bowel Movement 05/29/18 05/29/18 Result Diagrams: 05/30/18 04:19 05/30/18 04:19 Laboratory Results: Laboratory Results - last 24 hr 05/30/18 05/30/18 04:19 04:19 WBC 16.9 H RBC 3.32 L Hgb 9.7 L Hct 30.2 L MCV 91.0 MCH 29.1 MCHC 32.0 RDW 15.9 Plt Count 105 L MPV 9.6 Neut % (Auto) 93.6 H Lymph % (Auto) 2.6 L [place] % (Auto) 3.5 Eos % (Auto) 0.2 Baso % (Auto) 0.1 Neut # (Auto) 15.8 H Lymph # (Auto) 0.4 L [place] # (Auto) 0.6 Eos # (Auto) 0.0 Baso # (Auto) 0.0 WBC Differential . Differential Comment Auto diff final Sodium 157 H* Potassium 3.4 L Chloride 124 H Carbon Dioxide 26.0 Anion Gap 7 BUN 55 H Creatinine 1.11 H Estimated GFR 47 L Random Glucose 109 H Calcium 8.3 L Total Bilirubin 0.8 AST 28 ALT 83 H Alkaline Phosphatase 85 Total Protein 5.5 L D Albumin 2.5 L Culture Results: Microbiology 05/28/18 10:27 Aerobic Blood Culture - Preliminary Blood - Peripheral Staphylococcus aureus Anaerobic Blood Culture - Preliminary gram positive cocci 05/28/18 10:33 Aerobic Blood Culture - Preliminary Blood - Peripheral gram positive cocci Anaerobic Blood Culture - Preliminary gram positive cocci 05/27/18 09:13 Urine Culture - Final Catheterized Urine No growth in 48 hours 05/27/18 09:13 Gram Stain - Final Sputum - Endotracheal Sputum Culture - Final Citrobacter species Staphylococcus aureus Imaging Studies: Impressions Abdomen/Pelvis CT 05/29/18 00:00 CONCLUSION: 1. Since the prior CT, midline laparotomy with gastrojejunostomy has been performed. Anastomosis appears patent. There is a nasogastric tube which extends beyond the site of surgery and is in the first portion of the duodenum. Unchanged metallic structure near the ligament of Treitz, etiology uncertain. 2. A jejunostomy tube has also been placed without evidence of an acute complication. 3. Small, nonspecific free fluid in the pelvic cavity. No evidence of abscess. 4. No acute solid organ abnormality. Cysts of both kidneys and nonobstructing stones of the left kidney are again noted. 5. Sigmoid colon diverticulosis without diverticulitis. Chest CT 05/29/18 11:52 CONCLUSION: 1. 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 2. Pneumonia with volume loss in the right lower lobe. 3. Coronary artery calcification. 4. Emphysema. Chest X-Ray 05/30/18 05:00 CONCLUSION: Stable appearance of the chest. Medications: Active Medications Generic Name Dose Route Start Last Admin Trade Name Freq PRN Reason Stop Dose Admin Acetaminophen 650 mg 05/17/18 06:10 05/28/18 16:28 Tylenol PO 650 mg Q4H PRN Administration Temp > 100.4 Hydrocodone Bitart/Acetaminophen 1 tab 05/19/18 10:01 05/19/18 13:15 [place] 5/325 PO 1 tab Q6H PRN Administration Pain 2-5 Hydrocodone Bitart/Acetaminophen 1 tab 05/19/18 10:01 05/19/18 20:10 [place] 10/325 PO 1 tab Q6H PRN Administration Pain 6-10 Albuterol 2.5 mg 05/21/18 23:28 05/28/18 08:20 Albuterol Neb (Prn) NEB 2.5 mg Q2HR NEB PRN Administration WHEEZING Amlodipine Besylate 5 mg 05/26/18 10:00 05/30/18 08:10 Norvasc J-TUBE 5 mg DAILY [facility] Administration Artificial Tears 1 applicatio 05/22/18 21:00 05/30/18 08:18 Lacrilube Opth Oint EACH EYE 1 applicatio BID [facility] Administration Clonidine HCl 0.1 mg 05/26/18 11:24 05/26/18 23:31 Catapres PO 0.1 mg Q6H PRN Administration SBP>160, DBP>90 Fentanyl Citrate 100 mcg 05/23/18 10:59 05/23/18 11:12 Fentanyl Inj IV.PUSH 100 mcg Q1H PRN Administration Any pain Furosemide 20 mg 05/28/18 21:00 05/30/18 08:18 Lasix Inj IV.PUSH 20 mg Q12H [facility] Administration Heparin Sodium (Porcine) 0 unit 05/21/18 09:00 05/30/18 08:19 Heparin Central Flush IV.FLUSH Not Given DAILY [facility] Hydralazine HCl 10 mg 05/23/18 00:24 05/28/18 16:12 Apresoline Inj IV.PUSH 10 mg Q1H PRN Administration Sbp>165, Dbp>90 Hydromorphone HCl 2 mg 05/19/18 21:41 05/26/18 02:26 Dilaudid Pf Inj IV.PUSH 2 mg Q4H PRN Administration PAIN SCALE 6 -10 Pantoprazole Sodium 80 mg/ 100 mls @ 10 mls/hr 05/17/18 09:00 05/30/18 06:24 Sodium Chloride IV.CONT 10 mls/hr Q10H [facility] Administration Sodium Chloride 500 mls @ 30 mls/hr 05/18/18 07:00 05/18/18 07:00 Ns Inj IV.SIG Not Given .Q10H [facility] Fentanyl 2,500 mcg in 250 mls @ 5 mls/hr 05/20/18 20:00 05/30/18 04:02 Fentanyl 10 Mcg/Ml Premix Drip IV.SIG 150 mcg/hr TITRATE PRN 15 mls/hr Per Protocol Administration Protocol 50 MCG/HR Magnesium Sulfate 2 gm/ Sodium 100 mls @ 50 mls/hr 05/22/18 22:43 05/28/18 21 :30 Chloride IV.SIG Infused UNSCH PRN Infusion For Magnesium 1.2 - 1.6 mg/dL Potassium Chloride 40 meq in 100 mls @ 25 mls/hr 05/22/18 22:43 05/27/18 11: 02 Kcl 40 Meq Premix Inj IV.SIG Infused Q2H PRN Infusion For Potassium 2.8 - 3.2 mEq/L Potassium Chloride 40 meq in 100 mls @ 25 mls/hr 05/22/18 22:43 05/28/18 00: 32 Kcl 40 Meq Premix Inj IV.SIG Infused UNSCH PRN Infusion For Potassium 3.3 - 3.5 mEq/L Potassium Phosphate 30 mmol/ 260 mls @ 42 mls/hr 05/22/18 22:43 05/23/18 12: 57 Sodium Chloride IV.SIG Infused UNSCH PRN Infusion SEE LABEL COMMENTS Propofol 1,000 mg in 100 mls @ 2.922 mls/hr 05/23/18 11:00 05/26/18 10:35 Diprivan 1000 Mg/100 Ml Inj IV.CONT 0 mcg/kg/min TITRATE PRN 0 mls/hr Per Protocol Titration Protocol 5 MCG/KG/MIN Clevidipine 25 mg in 50 mls @ 2 mls/hr 05/26/18 11:23 05/28/18 09:00 Cleviprex Inj IV.CONT Infused TITRATE PRN Titration Per protocol Protocol 1 MG/HR Aztreonam 2 gm/ Sodium 100 mls @ 200 mls/hr 05/28/18 10:00 05/30/18 02:04 Chloride IV.SIG Infused Q8H [facility] Infusion Micafungin Sodium 150 mg/ 100 mls @ 100 mls/hr 05/28/18 20:00 05/29/18 21:39 Sodium Chloride IV.SIG Infused Q24H [facility] Infusion Vancomycin HCl 1,000 mg/ 250 mls @ 250 mls/hr 05/29/18 12:00 05/29/18 16:53 Sodium Chloride IV.SIG Infused Q24H [facility] Infusion Labetalol HCl 20 mg 05/26/18 07:44 05/27/18 03:30 Trandate Inj IV.PUSH 20 mg Q2H PRN Administration KEEP SBP<160 Lidocaine HCl 2 patch 05/19/18 09:30 05/30/18 08:16 Lidoderm 5% Patch.12 Hr T-DERMAL 2 patch DAILY [facility] Administration Linezolid 600 mg 05/28/18 10:00 05/29/18 21:46 Zyvox 600 Mg Premix IV.SIG 600 mg Q12H [facility] Administration Methylprednisolone Sodium Succinate 30 mg 05/30/18 09:00 05/30/18 08:10 Solumedrol Inj IV.PUSH 30 mg Q24H [facility] Administration Metronidazole 500 mg 05/28/18 09:30 05/30/18 05:37 Flagyl J-TUBE 500 mg Q8HR [facility] Administration Ondansetron HCl 4 mg 05/17/18 06:10 05/28/18 05:13 Zofran Inj IV.PUSH 4 mg Q6H PRN Administration NAUSEA OR VOMITING Patch Removal 1 each 05/19/18 21:00 05/29/18 21:00 Remove Old Patch T-DERMAL 1 each BID [facility] Administration Potassium Bicarb/Potassium Chloride 25 meq 05/26/18 21:00 05/30/18 08:18 K-Lyte Cl Eff NG/OG 25 meq BID [facility] Administration Prochlorperazine Edisylate 10 mg 05/17/18 09:06 05/19/18 00:08 Compazine Inj IV.PUSH 10 mg Q6H PRN Administration NAUSEA Senna/Docusate Sodium 1 tab 05/17/18 09:00 05/30/18 08:10 Jessie-Colace PO 1 tab BID [facility] Administration Sodium Chloride 0 ml 05/21/18 09:00 05/30/18 08:10 Ns Flush IV.FLUSH 2 ml DAILY [facility] Administration Sodium Chloride 0 ml 05/20/18 16:43 05/26/18 01:39 Ns Flush IV.FLUSH 2 ml PRN PRN Administration FLUSH AFTER USING IV ACCESS Sterile Water 100 ml 05/28/18 12:00 05/30/18 07:50 Free Water J-TUBE 100 ml Q4HR [facility] Administration Objective Remarks: GENERAL: Critically-ill appearing female patient, in nad. SKIN: Warm and dry. Surgical drsg to midline abd, dry/intact. HEAD: Normocephalic. EYES: No scleral icterus. No injection or drainage. NECK: Supple, trachea midline. CARDIOVASCULAR: Regular rate and rhythm without murmurs. RESPIRATORY: Breath sounds equal bilaterally. No accessory muscle use. FiO2 45% GASTROINTESTINAL: Abdomen large, soft, non-tender. Surgical drsg to midline, no bleeding noted. EXTREMITIES: No cyanosis, or edema. SCD's in place. MUSCULOSKELETAL: generalized weakness. NEUROLOGICAL: No obvious focal deficit. Awake, alert. Follows commands. PSYCHIATRIC: Intubated, calm. Assessment/Plan - Plan Ms. Perea is a pleasant 82-year-old lady with a history of lung cancer, multifocal amyloidosis, lymphomoplasmacytic disorder and now gastrointestinal bleeding. Plan: 1. Thrombocytopenia, solu-medrol currently being tapered, todays dose 30mg. Platelets decreased to 105k. Once renal function improves will try IVIG. 2. Blood cultures positive for staph, continues on abx per ID. 3. 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 - Attending Statement The exam, history, and the medical decision-making described in the above note were completed with the assistance of the mid-level provider. I reviewed and agree with the findings presented. I attest that I had a [id number] encounter with the patient on the same day, and personally performed and documented my assessment and findings in the medical record. Patient seen and examined. No overt bleeding. Central line has been removed. Sedated but at times to open eyes. Some periorbital edema. Goal is to decrease the prednisone to allow for healing. Course is further complicated by bacteremia. Renal function appears to be stable. Platelet count will be monitored. 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 Suspect that bacteremia contributes to the thrombocytopenia. Coagulation with fibrinogen will be checked to rule out DIC. Last fibrinogen was elevated.
[2018-05-30] MEDS ORDERED: Propofol 1000 mg/100 ml Inj 1,000 MG/100 ML BOTTLE IV.CONT PRN (08:46)
[2018-05-30] MEDS: DEXTROSE IV.SIG SCH (09:36)
[2018-05-30] MEDS: LINEZOLID IV.SIG SCH (09:36)
[2018-05-30] MEDS: Propofol 1000 mg/100 ml Inj 1,000 MG/100 ML BOTTLE IV.CONT PRN (09:37)
--- NOTE | 2018-05-30 09:39 | P.PNCC ---
Subjective Subjective Remarks/Hospital Course: Hospital Course: 82yF with history of amyloidosis who presented with GI bleeding, hypotension, and severe anemia. originally admitted to the floor. hgb continued to downtrend despite transfusions. today taken for EGD which found blood in the stomach and clot, but no active bleeding. despite this, hgb still did not improve. taken for bleeding scan which was very +. discussed case with Dr. Garcia/Dr. Garland in IR. review of admission CT abd/pelvis demonstrates possible bleeding at duodenal bulb concerning for ulceration. Taken emergently to IR for embolization which appears to be successful. I evaluated the patient upon arrival to the ICU post-IR procedure. she is stable. complaining of hip pain. hgb has improved appropriately. she denies other complaints. she asked me not to look at her groin sites because "my hips hurt and I am tired." Recent evaluation by bedside RN is without hematoma, and this evaluation is deferred at patient's request (bedside RN to continue to monitor for signs of hematoma). remainder of ROS negative. Subjective: 05/20: doing well. complaining of moderate abdominal pain 5/10. receiving iv dilaudid currently. plan for EGD today. hgb dropped from 7.8 to 7.4, but slightly more tachycardic today, and I am worried about ongoing bleeding, although it does appear to be much slower clinically than yesterday. I discussed with GI [employer] that per my conversation with IR, the lesion may be in the 4th portion of the duodenum near the ligament and it may require further investigation that usual EGD, and possibly push enteroscopy. She stated she would convey to the proceduralist. Dr. Shin suggests type II NSTEMI secondary to anemia and I agree completely with his assessment. Given that she is going soon for repeat EGD with anesthesia, will give 1 additional unit of prbc as she clearly has demonstrated she needs higher hematocrit for oxygen carrying capacity to her known ischemic CAD lesions. 05/21: s/p exploratory laparotomy last night. open abdomen. hgb stable. became acutely hypotensive with increased wound vac output one time today- emergently gave 1 unit prbc and 1 unit plt empirically given sudden change in condition. significant 3rd space losses requiring additional resuscitative efforts. remains deeply sedated. off vasopressors. remains intubated. 05/22: more hemodynamically stable today. hgb stable. still high wound-vac output with 300-500mL/12h. uop remains adequate at 70-80mL/hr, but Cr slightly elevated over baseline. unable to start diuresis yet and clinically although developing anasarca in the tissues, appears intravascularly euvolemic but not overloaded. likely will not tolerate diuresis efforts without significant kidney injury at this present juncture. needs bringback and washout in OR, but will leave timing of this to general surgery. 05/23: Received from operating room in good condition. Abdominal wound closed following gastrojejunostomy. Joseph-Vieira drain in region of the duodenal stump, gastric anastomosis. Nasogastric tube to not be moved, good position in stomach, keep to low intermittent suction. Downstream jejunostomy tube for initiation of trickle feeds. Renal function this morning excellent, follow closely. Chemical ventilation for the next couple of days as we observe tension on the abdominal wall. Meticulously avoid fluid overload. At present she is hypertensive and tachycardic for which we will restart propofol and use boluses of fentanyl as needed. Baseline fentanyl drip is infusing. 05/24: Remains warm and well-perfused overnight. Urine output acceptable at 35- 40 cc/h. Tolerated spontaneous breathing trial well this morning, we keep on vent for another 24-48 hours. Generalized edema persists. 05/25: Intubated sedated heavily. Urine output excellent with Lasix overall 3 L. Currently remains grossly fluid overloaded approximately 20 kg up from admission weight. We will start scheduled Lasix 20 every 8 hours with potassium replacement to facilitate ventilator weaning. 05/26: Sedated, orally intubated on mech vent. Being diuresed. Elevated BP on lightening sedation noted. 05/27: Sedated, orally intubated on mechanical ventilation. Being diuresed. Failed CPAP trial earlier. On Cleviprex for hypertension 05/28: Had episode of emesis last night. NGT remains to suction. Febrile overnight with rising WBCs noted. Sputum culture and UA ordered 05/27, getting blood cultures and starting empiric Abx coverage. Being diuresed. Cleviprex gtt being titrated down. 05/29: Arousable, intubated on mechanical ventilation. Follows commands by nodding, squeezes my fingers on command. Febrile yesterday for which she had cultures sent and was started on empiric antibiotic coverage. Blood cultures 3 out of 4 are growing gram-positive cocci. Her central line and PICC line were discontinued yesterday. 05/30: Sedated, arousable, intubated on mechanical ventilation. Follows commands by nodding and squeezing my fingers. CT chest with right hilar mass near right mainstem bronchus. CT abdomen pelvis with postop changes. Being diuresed to mobilize fluid. Daily CPAP trials. Blood cultures with gram- positive cocci. Objective Vital Signs / I&O: Vital Signs 05/29/18 09:30 05/29/18 09:45 05/29/18 10:00 Temperature Pulse Rate 111 H 111 H 115 H Respiratory Rate Blood Pressure Pulse Oximetry 97 97 96 05/29/18 10:04 05/29/18 10:06 05/29/18 10:15 Temperature Pulse Rate 119 H 119 H Respiratory Rate 28 H Blood Pressure 147/65 H Pulse Oximetry 96 94 L 96 05/29/18 10:30 05/29/18 10:45 05/29/18 11:00 Temperature Pulse Rate 111 H 108 H 104 H Respiratory Rate Blood Pressure Pulse Oximetry 97 96 94 L 05/29/18 11:06 05/29/18 11:15 05/29/18 11:30 Temperature Pulse Rate 107 H 103 H 106 H Respiratory Rate Blood Pressure 161/70 H Pulse Oximetry 97 97 98 05/29/18 11:45 05/29/18 12:00 05/29/18 12:06 Temperature 98.8 F Pulse Rate 107 H 98 H 105 H Respiratory Rate 18 Blood Pressure 165/77 H 165/77 H Pulse Oximetry 98 98 98 05/29/18 12:15 05/29/18 12:30 05/29/18 12:45 Temperature Pulse Rate 97 H 97 H 96 H Respiratory Rate Blood Pressure Pulse Oximetry 98 98 98 05/29/18 13:00 05/29/18 13:06 05/29/18 13:15 Temperature Pulse Rate 97 H 96 H 95 H Respiratory Rate Blood Pressure 133/61 Pulse Oximetry 98 98 98 05/29/18 13:30 05/29/18 13:35 05/29/18 13:45 Temperature Pulse Rate 97 H 97 H Respiratory Rate 14 Blood Pressure Pulse Oximetry 98 98 98 05/29/18 14:00 05/29/18 14:06 05/29/18 14:15 Temperature Pulse Rate 102 H 104 H 104 H Respiratory Rate Blood Pressure 157/74 H Pulse Oximetry 98 98 98 05/29/18 14:30 05/29/18 14:45 05/29/18 15:00 Temperature Pulse Rate 103 H 97 H 95 H Respiratory Rate Blood Pressure Pulse Oximetry 98 98 98 05/29/18 15:06 05/29/18 15:15 05/29/18 15:30 Temperature Pulse Rate 96 H 96 H 98 H Respiratory Rate Blood Pressure 140/65 Pulse Oximetry 98 99 100 05/29/18 15:45 05/29/18 16:00 05/29/18 16:06 Temperature 98.4 F Pulse Rate 96 H 97 H 95 H Respiratory Rate 18 Blood Pressure 143/67 H 143/67 H Pulse Oximetry 99 98 98 05/29/18 16:15 05/29/18 16:21 05/29/18 16:30 Temperature Pulse Rate 97 H 96 H Respiratory Rate 24 Blood Pressure Pulse Oximetry 99 98 99 05/29/18 16:45 05/29/18 17:00 05/29/18 17:06 Temperature Pulse Rate 97 H 97 H 96 H Respiratory Rate Blood Pressure 159/75 H Pulse Oximetry 99 98 98 05/29/18 17:15 05/29/18 17:30 05/29/18 17:45 Temperature Pulse Rate 95 H 93 H 95 H Respiratory Rate Blood Pressure Pulse Oximetry 98 98 98 05/29/18 18:00 05/29/18 18:06 05/29/18 18:15 Temperature 99.4 F Pulse Rate 92 H 93 H 94 H Respiratory Rate 17 Blood Pressure 162/74 H Pulse Oximetry 98 98 99 05/29/18 18:30 05/29/18 18:32 05/29/18 18:45 Temperature Pulse Rate 114 H 102 H Respiratory Rate 17 Blood Pressure Pulse Oximetry 97 98 98 05/29/18 19:00 05/29/18 19:06 05/29/18 19:15 Temperature Pulse Rate 96 H 94 H 99 H Respiratory Rate Blood Pressure 134/63 Pulse Oximetry 97 97 98 05/29/18 19:30 05/29/18 19:45 05/29/18 20:00 Temperature 99 F Pulse Rate 101 H 93 H 89 Respiratory Rate Blood Pressure Pulse Oximetry 98 98 98 05/29/18 20:06 05/29/18 20:15 05/29/18 20:30 Temperature Pulse Rate 91 H 93 H 92 H Respiratory Rate Blood Pressure 137/63 Pulse Oximetry 98 98 98 05/29/18 20:45 05/29/18 20:54 05/29/18 21:00 Temperature Pulse Rate 89 93 H Respiratory Rate 15 Blood Pressure Pulse Oximetry 98 98 98 05/29/18 21:06 05/29/18 21:15 05/29/18 21:30 Temperature Pulse Rate 96 H 94 H 94 H Respiratory Rate Blood Pressure 153/72 H Pulse Oximetry 98 98 98 05/29/18 21:45 05/29/18 22:00 05/29/18 22:06 Temperature Pulse Rate 100 H 102 H 93 H Respiratory Rate Blood Pressure 127/60 Pulse Oximetry 98 98 98 05/29/18 22:15 05/29/18 22:30 05/29/18 22:45 Temperature Pulse Rate 89 92 H 105 H Respiratory Rate Blood Pressure Pulse Oximetry 98 99 99 05/29/18 23:00 05/29/18 23:06 05/29/18 23:15 Temperature Pulse Rate 100 H 102 H 114 H Respiratory Rate Blood Pressure 151/72 H Pulse Oximetry 97 98 98 05/29/18 23:30 05/29/18 23:45 05/30/18 00:00 Temperature 98.8 F Pulse Rate 96 H 94 H 92 H Respiratory Rate Blood Pressure Pulse Oximetry 95 95 97 05/30/18 00:06 05/30/18 00:15 05/30/18 00:30 Temperature Pulse Rate 91 H 90 90 Respiratory Rate Blood Pressure 120/59 L Pulse Oximetry 96 97 97 05/30/18 00:45 05/30/18 00:49 05/30/18 01:00 Temperature Pulse Rate 96 H 91 H Respiratory Rate 14 Blood Pressure Pulse Oximetry 99 97 98 05/30/18 01:06 05/30/18 01:15 05/30/18 01:30 Temperature Pulse Rate 94 H 95 H 88 Respiratory Rate Blood Pressure 139/63 Pulse Oximetry 98 98 98 05/30/18 01:45 05/30/18 02:00 05/30/18 02:06 Temperature Pulse Rate 88 86 85 Respiratory Rate Blood Pressure 107/59 L Pulse Oximetry 95 95 95 05/30/18 02:15 05/30/18 02:30 05/30/18 02:45 Temperature Pulse Rate 86 87 85 Respiratory Rate Blood Pressure Pulse Oximetry 97 97 97 05/30/18 03:00 05/30/18 03:06 05/30/18 03:15 Temperature Pulse Rate 87 80 85 Respiratory Rate Blood Pressure 115/59 L Pulse Oximetry 98 97 97 05/30/18 03:30 05/30/18 03:45 05/30/18 03:51 Temperature Pulse Rate 92 H 94 H Respiratory Rate 17 Blood Pressure Pulse Oximetry 97 100 100 05/30/18 04:00 05/30/18 04:06 05/30/18 04:15 Temperature 98 F Pulse Rate 94 H 93 H 93 H Respiratory Rate Blood Pressure 116/59 L Pulse Oximetry 96 95 96 05/30/18 04:30 05/30/18 04:45 05/30/18 05:00 Temperature Pulse Rate 90 89 90 Respiratory Rate Blood Pressure Pulse Oximetry 96 96 96 05/30/18 05:06 05/30/18 05:15 05/30/18 05:30 Temperature Pulse Rate 92 H 91 H 90 Respiratory Rate Blood Pressure 130/63 Pulse Oximetry 96 96 97 05/30/18 05:45 05/30/18 06:00 05/30/18 06:06 Temperature Pulse Rate 92 H 93 H 95 H Respiratory Rate Blood Pressure 132/60 Pulse Oximetry 98 98 98 05/30/18 06:15 05/30/18 06:30 05/30/18 06:45 Temperature Pulse Rate 93 H 93 H 92 H Respiratory Rate Blood Pressure Pulse Oximetry 98 98 97 05/30/18 07:00 05/30/18 07:06 05/30/18 07:15 Temperature Pulse Rate 93 H 99 H 94 H Respiratory Rate Blood Pressure 145/67 H Pulse Oximetry 97 98 96 05/30/18 07:30 05/30/18 07:45 05/30/18 08:00 Temperature 98.8 F Pulse Rate 94 H 93 H 97 H Respiratory Rate 14 Blood Pressure 127/58 L Pulse Oximetry 96 97 97 05/30/18 08:06 05/30/18 08:15 05/30/18 08:30 Temperature Pulse Rate 95 H 94 H 98 H Respiratory Rate Blood Pressure 127/58 L Pulse Oximetry 94 L 95 96 05/30/18 08:37 05/30/18 08:45 05/30/18 09:00 Temperature Pulse Rate 100 H 108 H Respiratory Rate Blood Pressure Pulse Oximetry 96 95 96 Intake & Output 05/29/18 05/30/18 05/30/18 18:59 06:59 18:59 Intake Total 1195 / 1195 806 / 806 Output Total 2100 / 2100 1900 / 1900 Balance -905 / -905 -1094 / -1094 Weight 82.5 kg Intake: IV 750 / 750 300 / 300 Protonix Inj 80 MG In NS Inj 100 / 100 100 / 100 100 ML @ 10 mls/hr IV.CONT Q10H [facility] Rx#:[id number] Azactam Inj 2 GM In NS Inj 100 200 / 200 100 / 100 ML @ 200 mls/hr IV.SIG Q8H [facility] Rx#:[id number] Mycamine Inj 150 MG In NS Inj 100 / 100 100 ML @ 100 mls/hr IV.SIG Q24H [facility] Rx#:[id number] Vancomycin Inj 1,000 MG In NS 250 / 250 Inj 250 ML @ 250 mls/hr IV.SIG Q24H [facility] Rx#:[id number] Tube Feeding 85 / 85 246 / 246 Tube Irrigant 60 / 60 60 / 60 Water Bolus Amount 300 / 300 200 / 200 Output: Stool 200 / 200 Urine Amount (Catheter) 1450 / 1450 1300 / 1300 Indwelling Urethral Catheter 1450 / 1450 1300 / 1300 Gastric Drainage 450 / 450 600 / 600 Right Nare Nasogastric Tube 450 / 450 600 / 600 Other: Date of Last Bowel Movement 05/29/18 05/29/18 05/29/18 Result Diagrams: 05/30/18 04:19 05/30/18 04:19 Imaging: Impressions Chest X-Ray 05/28/18 00:00 CONCLUSION: Underinflation with minimal bibasilar opacity most likely representing atelectasis. This finding is improved since the 05/25/2018 examination. There are no findings to suggest aspiration. Abdomen/Pelvis CT 05/29/18 00:00 CONCLUSION: 1. Since the prior CT, midline laparotomy with gastrojejunostomy has been performed. Anastomosis appears patent. There is a nasogastric tube which extends beyond the site of surgery and is in the first portion of the duodenum. Unchanged metallic structure near the ligament of Treitz, etiology uncertain. 2. A jejunostomy tube has also been placed without evidence of an acute complication. 3. Small, nonspecific free fluid in the pelvic cavity. No evidence of abscess. 4. No acute solid organ abnormality. Cysts of both kidneys and nonobstructing stones of the left kidney are again noted. 5. Sigmoid colon diverticulosis without diverticulitis. Chest CT 05/29/18 11:52 CONCLUSION: 1. 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 2. Pneumonia with volume loss in the right lower lobe. 3. Coronary artery calcification. 4. Emphysema. Chest X-Ray 05/30/18 05:00 CONCLUSION: Stable appearance of the chest. Objective Remarks: GENERAL: Well sedated patient, mechanically ventilated, calm. HEENT: Normocephalic. Atraumatic. GEOVANI. Orotracheal intubation. CHEST: Orally intubated on mechanical ventilation, clear breath sounds bilaterally, equal chest rise. Air entry diminished at the bases. No adventitious sounds. CARDIOVASCULAR: Normal S1-S2. Regular normal rate, regular rhythm. No JVD. ABDOMEN: Fascia closed, postsurgical wound intact, abdominal binder in place. Soft, nondistended. Few bowel sounds heard. MUSCULOSKELETAL: Bilateral foot pulses 2+. bilateral foot and ankle edema. Warm and well-perfused fingers and toes. NEUROLOGICAL: Drowsy, easily arousable, opens eyes on command,, withdraws 4 limbs, localizes, breathing spontaneously over the ventilator. Assessment and Plan - Assessment and Plan Plan: Assessment: 82yF with amyloidosis and active GI bleed. s/p emergent IA embolization 05/19. s/p EGD 05/19 and again 05/20 with ischemia present. s/p emergent exploratory laparotomy with duodenal and jejunal resection, initially left in discontinuity with open abdomen, and now reconstructed with abdominal wall closure. Remains critically ill. Scheduled Lasix started for aggressive diuresis. Grossly fluid up approximately 20 kg Active upper GI bleed Acute hypoxic and hypercarbic respiratory failure s/p emergent exploratory laparotomy with duodenal and jejunal resection, initially left in discontinuity with open abdomen 05/20 Now reconstructed with abdominal wall closure. severe acute anemia secondary to blood loss requiring transfusion- persistent duodenal ulcer Type II NSTEMI secondary to demand ischemia from severe anemia s/p EGD 05/19, 05/20 s/p emergent IR embolization 05/19 severe acute thrombocytopenia - ITP acute protein calorie malnutrition- moderate to severe Fluid overload sepsis Pneumonia Gram-positive cocci bacteremia Right hilar mass Plan: - PRVC ventilator mode. Daily spontaneous breathing trials. - propofol, fentanyl for goal RASS -2 to - 3. -Continue IV Lasix 20 mg every 12 hours with potassium replacement - Grossly fluid positive approximately 20 kg. Need to get weight closer to admission weight prior to extubation - Off IV fluids - F/u cultures, Starting empiric abx with azactam, zyvox, flagyl via G tube. ID consulted for further abx management, sepsis eval. micafungin added by ID on 05/28. -Blood cultures from 05/28 growing gram-positive cocci (3 out of 4) -Pulmonary consult requested for right hilar mass on CT chest done on 05/29. May require bronchoscopy for further evaluation. - Labetalol prn, Cardene gtt to keep SBP less than 160mm Hg, Norvasc 5mg via J tube daily started 05/26 - Serial hemoglobin, transfuse to keep hgb > 7 - serially check platelets, transfuse to keep plt > 50k. Tapering solumedrol, decreased to 30mg daily - tube feeds per general surgery, through jejunostomy. NGT to suction. -Strict intake output, monitor and replete elect lites, follow BUN and creatinine. - ICU electrolyte replacement protocol - SCDs. Start subcu heparin when cleared by general surgery/ Heme-onc. 05/28: Discussed with ID, discussed with Dr. James, discussed with patient's daughter at bedside. 05/29: Discussed with ID Dr. Dhillon, discussed with patient's daughter Raciel Conley and updated her regarding current clinical status including plan of care and she voiced understanding and was agreeable. Overall impression: This patient remains critically ill with fluctuating renal function, fluid overload and compromised respiratory reserve due to recent resuscitation volume and generalized edema, complicated by sepsis. Critical care time excluding procedures 40 mins
[2018-05-30] MEDS: Vancomycin Inj 1,000 MG in Sodium Chlor 0.9% Inj 250 ML IV.SIG SCH (12:56)
--- NOTE | 2018-05-30 12:59 | P.PNID ---
Subjective Remarks: pt is stable today, no high fevers T max yday was 102 + blood culx 4/4 bottles + for MSSA cont to have maroone stool, C.dif f neg CT showed 3.3 cm masslike opacity in the right hilum Antibiotics: zyvox micafungin flagyl azactam vancomycin Allergies/Adverse Reactions: Allergies Sulfa (Sulfonamide Antibiotics) Allergy (Severe, Verified 05/17/18 03:34) Anaphylaxis amoxicillin Allergy (Mild, Verified 05/17/18 03:34) nausea codeine Allergy (Mild, Verified 05/17/18 03:34) constipation Objective Vital Signs 05/29/18 12:45 05/29/18 13:00 05/29/18 13:06 Temperature Pulse Rate 96 H 97 H 96 H Respiratory Rate Blood Pressure 133/61 Pulse Oximetry 98 98 98 05/29/18 13:15 05/29/18 13:30 05/29/18 13:35 Temperature Pulse Rate 95 H 97 H Respiratory Rate 14 Blood Pressure Pulse Oximetry 98 98 98 05/29/18 13:45 05/29/18 14:00 05/29/18 14:06 Temperature Pulse Rate 97 H 102 H 104 H Respiratory Rate Blood Pressure 157/74 H Pulse Oximetry 98 98 98 05/29/18 14:15 05/29/18 14:30 05/29/18 14:45 Temperature Pulse Rate 104 H 103 H 97 H Respiratory Rate Blood Pressure Pulse Oximetry 98 98 98 05/29/18 15:00 05/29/18 15:06 05/29/18 15:15 Temperature Pulse Rate 95 H 96 H 96 H Respiratory Rate Blood Pressure 140/65 Pulse Oximetry 98 98 99 05/29/18 15:30 05/29/18 15:45 05/29/18 16:00 Temperature 98.4 F Pulse Rate 98 H 96 H 97 H Respiratory Rate 18 Blood Pressure 143/67 H Pulse Oximetry 100 99 98 05/29/18 16:06 05/29/18 16:15 05/29/18 16:21 Temperature Pulse Rate 95 H 97 H Respiratory Rate 24 Blood Pressure 143/67 H Pulse Oximetry 98 99 98 05/29/18 16:30 05/29/18 16:45 05/29/18 17:00 Temperature Pulse Rate 96 H 97 H 97 H Respiratory Rate Blood Pressure Pulse Oximetry 99 99 98 05/29/18 17:06 05/29/18 17:15 05/29/18 17:30 Temperature Pulse Rate 96 H 95 H 93 H Respiratory Rate Blood Pressure 159/75 H Pulse Oximetry 98 98 98 05/29/18 17:45 05/29/18 18:00 05/29/18 18:06 Temperature 99.4 F Pulse Rate 95 H 92 H 93 H Respiratory Rate 17 Blood Pressure 162/74 H Pulse Oximetry 98 98 98 05/29/18 18:15 05/29/18 18:30 05/29/18 18:32 Temperature Pulse Rate 94 H 114 H Respiratory Rate 17 Blood Pressure Pulse Oximetry 99 97 98 05/29/18 18:45 05/29/18 19:00 05/29/18 19:06 Temperature Pulse Rate 102 H 96 H 94 H Respiratory Rate Blood Pressure 134/63 Pulse Oximetry 98 97 97 05/29/18 19:15 05/29/18 19:30 05/29/18 19:45 Temperature Pulse Rate 99 H 101 H 93 H Respiratory Rate Blood Pressure Pulse Oximetry 98 98 98 05/29/18 20:00 05/29/18 20:06 05/29/18 20:15 Temperature 99 F Pulse Rate 89 91 H 93 H Respiratory Rate Blood Pressure 137/63 Pulse Oximetry 98 98 98 05/29/18 20:30 05/29/18 20:45 05/29/18 20:54 Temperature Pulse Rate 92 H 89 Respiratory Rate 15 Blood Pressure Pulse Oximetry 98 98 98 05/29/18 21:00 05/29/18 21:06 05/29/18 21:15 Temperature Pulse Rate 93 H 96 H 94 H Respiratory Rate Blood Pressure 153/72 H Pulse Oximetry 98 98 98 05/29/18 21:30 05/29/18 21:45 05/29/18 22:00 Temperature Pulse Rate 94 H 100 H 102 H Respiratory Rate Blood Pressure Pulse Oximetry 98 98 98 05/29/18 22:06 05/29/18 22:15 05/29/18 22:30 Temperature Pulse Rate 93 H 89 92 H Respiratory Rate Blood Pressure 127/60 Pulse Oximetry 98 98 99 05/29/18 22:45 05/29/18 23:00 05/29/18 23:06 Temperature Pulse Rate 105 H 100 H 102 H Respiratory Rate Blood Pressure 151/72 H Pulse Oximetry 99 97 98 05/29/18 23:15 05/29/18 23:30 05/29/18 23:45 Temperature Pulse Rate 114 H 96 H 94 H Respiratory Rate Blood Pressure Pulse Oximetry 98 95 95 05/30/18 00:00 05/30/18 00:06 05/30/18 00:15 Temperature 98.8 F Pulse Rate 92 H 91 H 90 Respiratory Rate Blood Pressure 120/59 L Pulse Oximetry 97 96 97 05/30/18 00:30 05/30/18 00:45 05/30/18 00:49 Temperature Pulse Rate 90 96 H Respiratory Rate 14 Blood Pressure Pulse Oximetry 97 99 97 05/30/18 01:00 05/30/18 01:06 05/30/18 01:15 Temperature Pulse Rate 91 H 94 H 95 H Respiratory Rate Blood Pressure 139/63 Pulse Oximetry 98 98 98 05/30/18 01:30 05/30/18 01:45 05/30/18 02:00 Temperature Pulse Rate 88 88 86 Respiratory Rate Blood Pressure Pulse Oximetry 98 95 95 05/30/18 02:06 05/30/18 02:15 05/30/18 02:30 Temperature Pulse Rate 85 86 87 Respiratory Rate Blood Pressure 107/59 L Pulse Oximetry 95 97 97 05/30/18 02:45 05/30/18 03:00 05/30/18 03:06 Temperature Pulse Rate 85 87 80 Respiratory Rate Blood Pressure 115/59 L Pulse Oximetry 97 98 97 05/30/18 03:15 05/30/18 03:30 05/30/18 03:45 Temperature Pulse Rate 85 92 H 94 H Respiratory Rate Blood Pressure Pulse Oximetry 97 97 100 05/30/18 03:51 05/30/18 04:00 05/30/18 04:06 Temperature 98 F Pulse Rate 94 H 93 H Respiratory Rate 17 Blood Pressure 116/59 L Pulse Oximetry 100 96 95 05/30/18 04:15 05/30/18 04:30 05/30/18 04:45 Temperature Pulse Rate 93 H 90 89 Respiratory Rate Blood Pressure Pulse Oximetry 96 96 96 05/30/18 05:00 05/30/18 05:06 05/30/18 05:15 Temperature Pulse Rate 90 92 H 91 H Respiratory Rate Blood Pressure 130/63 Pulse Oximetry 96 96 96 05/30/18 05:30 05/30/18 05:45 05/30/18 06:00 Temperature Pulse Rate 90 92 H 93 H Respiratory Rate Blood Pressure Pulse Oximetry 97 98 98 05/30/18 06:06 05/30/18 06:15 05/30/18 06:30 Temperature Pulse Rate 95 H 93 H 93 H Respiratory Rate Blood Pressure 132/60 Pulse Oximetry 98 98 98 05/30/18 06:45 05/30/18 07:00 05/30/18 07:06 Temperature Pulse Rate 92 H 93 H 99 H Respiratory Rate Blood Pressure 145/67 H Pulse Oximetry 97 97 98 05/30/18 07:15 05/30/18 07:30 05/30/18 07:45 Temperature Pulse Rate 94 H 94 H 93 H Respiratory Rate Blood Pressure Pulse Oximetry 96 96 97 05/30/18 08:00 05/30/18 08:06 05/30/18 08:15 Temperature 98.8 F Pulse Rate 97 H 95 H 94 H Respiratory Rate 14 Blood Pressure 127/58 L 127/58 L Pulse Oximetry 97 94 L 95 05/30/18 08:30 05/30/18 08:37 05/30/18 08:45 Temperature Pulse Rate 98 H 100 H Respiratory Rate Blood Pressure Pulse Oximetry 96 96 95 05/30/18 09:00 05/30/18 12:09 Temperature Pulse Rate 108 H Respiratory Rate 14 Blood Pressure Pulse Oximetry 96 98 Intake & Output 05/29/18 05/30/18 05/30/18 18:59 06:59 18:59 Intake Total 1195 / 1195 806 / 806 100 / 100 Output Total 2100 / 2100 1900 / 1900 Balance -905 / -905 -1094 / -1094 100 / 100 Weight 82.5 kg Intake: IV 750 / 750 300 / 300 100 / 100 Cleviprex Inj 25 mg In 50 ml @ 0 / 0 1 MG/HR 2 mls/hr IV.CONT TITRATE PRN Rx#:[id number] Protonix Inj 80 MG In NS Inj 100 / 100 100 / 100 100 ML @ 10 mls/hr IV.CONT Q10H [facility] Rx#:[id number] Diprivan 1000 mg/100 ml Inj 1, 100 / 100 000 mg In 100 ml @ 5 MCG/KG/MIN 2.922 mls/hr IV.CONT TITRATE PRN Rx#:[id number] Azactam Inj 2 GM In NS Inj 100 200 / 200 100 / 100 ML @ 200 mls/hr IV.SIG Q8H VALERY Rx#:[id number] Magnesium Sulfate Inj 2 GM In 0 / 0 NS Inj 96 ML @ 50 mls/hr IV.SIG UNSCH PRN Rx#:[id number] Mycamine Inj 150 MG In NS Inj 100 / 100 0 / 0 100 ML @ 100 mls/hr IV.SIG Q24H [facility]ERY Rx#:[id number] KCl 40 mEq Premix Inj 40 meq In 0 / 0 100 ml @ 25 mls/hr IV.SIG UNSCH PRN Rx#:[id number] Vancomycin Inj 1,000 MG In NS 250 / 250 0 / 0 Inj 250 ML @ 250 mls/hr IV.SIG Q24H VALERY Rx#:[id number] Tube Feeding 85 / 85 246 / 246 Tube Irrigant 60 / 60 60 / 60 Water Bolus Amount 300 / 300 200 / 200 Output: Stool 200 / 200 Urine Amount (Catheter) 1450 / 1450 1300 / 1300 Indwelling Urethral Catheter 1450 / 1450 1300 / 1300 Gastric Drainage 450 / 450 600 / 600 Right Nare Nasogastric Tube 450 / 450 600 / 600 Other: Date of Last Bowel Movement 05/29/18 05/29/18 05/29/18 05/28/18 10:33 Blood - Peripheral Aerobic Blood Culture - Preliminary Staphylococcus aureus 05/28/18 10:33 Blood - Peripheral Anaerobic Blood Culture - Preliminary Staphylococcus aureus 05/28/18 10:27 Blood - Peripheral Aerobic Blood Culture - Preliminary Staphylococcus aureus 05/28/18 10:27 Blood - Peripheral Anaerobic Blood Culture - Preliminary Staphylococcus aureus 05/27/18 09:13 Catheterized Urine Urine Culture - Final No growth in 48 hours 05/27/18 09:13 Sputum - Endotracheal Gram Stain - Final 05/27/18 09:13 Sputum - Endotracheal Sputum Culture - Final Citrobacter species Staphylococcus aureus Lab - Hematology Results 05/29/18 05/30/18 04:24 04:19 WBC 22.0 H 16.9 H RBC 3.43 L 3.32 L Hgb 10.0 L 9.7 L Hct 30.8 L 30.2 L MCV 89.7 91.0 MCH 29.1 29.1 MCHC 32.5 32.0 RDW 16.3 15.9 Plt Count 108 L 105 L MPV 9.4 9.6 Neut % (Auto) 94.4 H 93.6 H Lymph % (Auto) 1.8 L 2.6 L Jack % (Auto) 3.6 3.5 Eos % (Auto) 0.0 0.2 Baso % (Auto) 0.2 0.1 Neut # (Auto) 20.7 H 15.8 H Lymph # (Auto) 0.4 L 0.4 L Jack # (Auto) 0.8 0.6 Eos # (Auto) 0.0 0.0 Baso # (Auto) 0.0 0.0 WBC Differential . . Differential Comment Auto diff final Auto diff final Lab - Chemistry Results 05/28/18 05/28/18 05/29/18 15:53 23:08 04:24 Sodium 157 H* 157 H* Potassium 3.8 3.7 Chloride 122 H 121 H Carbon Dioxide 29.0 27.8 Anion Gap 6 8 BUN 58 H 56 H Creatinine 1.06 H 1.08 H Estimated GFR 50 L 49 L POC Glucose 159 H Random Glucose 124 H 115 H Calcium 7.9 L D 8.1 L Total Bilirubin 0.8 AST 52 H ALT 100 H Alkaline Phosphatase 90 Troponin I 0.11 H Total Protein 6.1 L Albumin 2.7 L 05/30/18 04:19 Sodium 157 H* Potassium 3.4 L Chloride 124 H Carbon Dioxide 26.0 Anion Gap 7 BUN 55 H Creatinine 1.11 H Estimated GFR 47 L POC Glucose Random Glucose 109 H Calcium 8.3 L Total Bilirubin 0.8 AST 28 ALT 83 H Alkaline Phosphatase 85 Troponin I Total Protein 5.5 L D Albumin 2.5 L Imaging: ITS Impressions GI Bleed Scan Nuclear Medicine 05/19/18 00:00 CONCLUSION: 1. 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 Patient was emergently brought to the interventional radiology department from the nuclear medicine department for angiography and intervention. Mesenteric Arteriogram 05/19/18 14:37 CONCLUSION: 1. 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 2. 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 PICC Line Insertion 05/20/18 00:00 CONCLUSION: 1. Uncomplicated central venous Power PICC line placement. 2. The PICC line can be used immediately. Abdomen X-Ray 05/28/18 05:23 CONCLUSION: No dilated bowel loops. Abdomen/Pelvis CT 05/29/18 00:00 CONCLUSION: 1. Since the prior CT, midline laparotomy with gastrojejunostomy has been performed. Anastomosis appears patent. There is a nasogastric tube which extends beyond the site of surgery and is in the first portion of the duodenum. Unchanged metallic structure near the ligament of Treitz, etiology uncertain. 2. A jejunostomy tube has also been placed without evidence of an acute complication. 3. Small, nonspecific free fluid in the pelvic cavity. No evidence of abscess. 4. No acute solid organ abnormality. Cysts of both kidneys and nonobstructing stones of the left kidney are again noted. 5. Sigmoid colon diverticulosis without diverticulitis. Chest CT 05/29/18 11:52 CONCLUSION: 1. 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 2. Pneumonia with volume loss in the right lower lobe. 3. Coronary artery calcification. 4. Emphysema. Chest X-Ray 05/30/18 05:00 CONCLUSION: Stable appearance of the chest. Physical Exam: GENERAL: NAD SKIN: Warm and dry. HEAD: Atraumatic. Normocephalic. EYES: Pupils equal and round. No scleral icterus. No injection or drainage. ENT: No nasal bleeding or discharge. Mucous membranes pink and moist. NECK: Trachea midline. No JVD. CARDIOVASCULAR: Regular rate and rhythm. RESPIRATORY: No accessory muscle use. Clear to auscultation. Breath sounds equal bilaterally. GASTROINTESTINAL: Abdomen soft, tender, quite distended. surgre dressing in place [place] drain in LLQ with serosaung d/c MUSCULOSKELETAL: Extremities without clubbing, cyanosis, or edema. No obvious deformities. NEUROLOGICAL: awake, opens eyes, makes eye contact PSYCHIATRIC: calm , cooperative Assessment and Plan - Plan GI bleeding POD3 exploratory laparotomy, gastrojejunostomy, closure, j tube Acute VDRF fever, leukocytosis - persistend Ileus ? Intraabdominal HIgh grade MSSA bacteremia ? source 3.3 cm masslike opacity in the right hilum with RLL consolidation cont vancomycin for MSSA bacteremia cont azactam dc flagyl, zyvox, micafungin CBC CMP 2 D echo repeat BC Probably IVAN pending 2 D echo results dw RN dw Dr Joyce
--- NOTE | 2018-05-30 13:49 | P.PNGS ---
Subjective Patient reports: other (sedated on vent. follows commands. no issues per family and RN at bedside. still trying to wearn off vent) Physical Exam Vital signs: Vital Signs 05/29/18 14:00 05/29/18 14:06 05/29/18 14:15 Temperature Pulse Rate 102 H 104 H 104 H Respiratory Rate Blood Pressure 157/74 H Pulse Oximetry 98 98 98 05/29/18 14:30 05/29/18 14:45 05/29/18 15:00 Temperature Pulse Rate 103 H 97 H 95 H Respiratory Rate Blood Pressure Pulse Oximetry 98 98 98 05/29/18 15:06 05/29/18 15:15 05/29/18 15:30 Temperature Pulse Rate 96 H 96 H 98 H Respiratory Rate Blood Pressure 140/65 Pulse Oximetry 98 99 100 05/29/18 15:45 05/29/18 16:00 05/29/18 16:06 Temperature 98.4 F Pulse Rate 96 H 97 H 95 H Respiratory Rate 18 Blood Pressure 143/67 H 143/67 H Pulse Oximetry 99 98 98 05/29/18 16:15 05/29/18 16:21 05/29/18 16:30 Temperature Pulse Rate 97 H 96 H Respiratory Rate 24 Blood Pressure Pulse Oximetry 99 98 99 05/29/18 16:45 05/29/18 17:00 05/29/18 17:06 Temperature Pulse Rate 97 H 97 H 96 H Respiratory Rate Blood Pressure 159/75 H Pulse Oximetry 99 98 98 05/29/18 17:15 05/29/18 17:30 05/29/18 17:45 Temperature Pulse Rate 95 H 93 H 95 H Respiratory Rate Blood Pressure Pulse Oximetry 98 98 98 05/29/18 18:00 05/29/18 18:06 05/29/18 18:15 Temperature 99.4 F Pulse Rate 92 H 93 H 94 H Respiratory Rate 17 Blood Pressure 162/74 H Pulse Oximetry 98 98 99 05/29/18 18:30 05/29/18 18:32 05/29/18 18:45 Temperature Pulse Rate 114 H 102 H Respiratory Rate 17 Blood Pressure Pulse Oximetry 97 98 98 05/29/18 19:00 05/29/18 19:06 05/29/18 19:15 Temperature Pulse Rate 96 H 94 H 99 H Respiratory Rate Blood Pressure 134/63 Pulse Oximetry 97 97 98 05/29/18 19:30 05/29/18 19:45 05/29/18 20:00 Temperature 99 F Pulse Rate 101 H 93 H 89 Respiratory Rate Blood Pressure Pulse Oximetry 98 98 98 05/29/18 20:06 05/29/18 20:15 05/29/18 20:30 Temperature Pulse Rate 91 H 93 H 92 H Respiratory Rate Blood Pressure 137/63 Pulse Oximetry 98 98 98 05/29/18 20:45 05/29/18 20:54 05/29/18 21:00 Temperature Pulse Rate 89 93 H Respiratory Rate 15 Blood Pressure Pulse Oximetry 98 98 98 05/29/18 21:06 05/29/18 21:15 05/29/18 21:30 Temperature Pulse Rate 96 H 94 H 94 H Respiratory Rate Blood Pressure 153/72 H Pulse Oximetry 98 98 98 05/29/18 21:45 05/29/18 22:00 05/29/18 22:06 Temperature Pulse Rate 100 H 102 H 93 H Respiratory Rate Blood Pressure 127/60 Pulse Oximetry 98 98 98 05/29/18 22:15 05/29/18 22:30 05/29/18 22:45 Temperature Pulse Rate 89 92 H 105 H Respiratory Rate Blood Pressure Pulse Oximetry 98 99 99 05/29/18 23:00 05/29/18 23:06 05/29/18 23:15 Temperature Pulse Rate 100 H 102 H 114 H Respiratory Rate Blood Pressure 151/72 H Pulse Oximetry 97 98 98 05/29/18 23:30 05/29/18 23:45 05/30/18 00:00 Temperature 98.8 F Pulse Rate 96 H 94 H 92 H Respiratory Rate Blood Pressure Pulse Oximetry 95 95 97 05/30/18 00:06 05/30/18 00:15 05/30/18 00:30 Temperature Pulse Rate 91 H 90 90 Respiratory Rate Blood Pressure 120/59 L Pulse Oximetry 96 97 97 05/30/18 00:45 05/30/18 00:49 05/30/18 01:00 Temperature Pulse Rate 96 H 91 H Respiratory Rate 14 Blood Pressure Pulse Oximetry 99 97 98 05/30/18 01:06 05/30/18 01:15 05/30/18 01:30 Temperature Pulse Rate 94 H 95 H 88 Respiratory Rate Blood Pressure 139/63 Pulse Oximetry 98 98 98 05/30/18 01:45 05/30/18 02:00 05/30/18 02:06 Temperature Pulse Rate 88 86 85 Respiratory Rate Blood Pressure 107/59 L Pulse Oximetry 95 95 95 05/30/18 02:15 05/30/18 02:30 05/30/18 02:45 Temperature Pulse Rate 86 87 85 Respiratory Rate Blood Pressure Pulse Oximetry 97 97 97 05/30/18 03:00 05/30/18 03:06 05/30/18 03:15 Temperature Pulse Rate 87 80 85 Respiratory Rate Blood Pressure 115/59 L Pulse Oximetry 98 97 97 05/30/18 03:30 05/30/18 03:45 05/30/18 03:51 Temperature Pulse Rate 92 H 94 H Respiratory Rate 17 Blood Pressure Pulse Oximetry 97 100 100 05/30/18 04:00 05/30/18 04:06 05/30/18 04:15 Temperature 98 F Pulse Rate 94 H 93 H 93 H Respiratory Rate Blood Pressure 116/59 L Pulse Oximetry 96 95 96 05/30/18 04:30 05/30/18 04:45 05/30/18 05:00 Temperature Pulse Rate 90 89 90 Respiratory Rate Blood Pressure Pulse Oximetry 96 96 96 05/30/18 05:06 05/30/18 05:15 05/30/18 05:30 Temperature Pulse Rate 92 H 91 H 90 Respiratory Rate Blood Pressure 130/63 Pulse Oximetry 96 96 97 05/30/18 05:45 05/30/18 06:00 05/30/18 06:06 Temperature Pulse Rate 92 H 93 H 95 H Respiratory Rate Blood Pressure 132/60 Pulse Oximetry 98 98 98 05/30/18 06:15 05/30/18 06:30 05/30/18 06:45 Temperature Pulse Rate 93 H 93 H 92 H Respiratory Rate Blood Pressure Pulse Oximetry 98 98 97 05/30/18 07:00 05/30/18 07:06 05/30/18 07:15 Temperature Pulse Rate 93 H 99 H 94 H Respiratory Rate Blood Pressure 145/67 H Pulse Oximetry 97 98 96 05/30/18 07:30 05/30/18 07:45 05/30/18 08:00 Temperature 98.8 F Pulse Rate 94 H 93 H 97 H Respiratory Rate 14 Blood Pressure 127/58 L Pulse Oximetry 96 97 97 05/30/18 08:06 05/30/18 08:15 05/30/18 08:30 Temperature Pulse Rate 95 H 94 H 98 H Respiratory Rate Blood Pressure 127/58 L Pulse Oximetry 94 L 95 96 05/30/18 08:37 05/30/18 08:45 05/30/18 09:00 Temperature Pulse Rate 100 H 108 H Respiratory Rate Blood Pressure Pulse Oximetry 96 95 96 05/30/18 12:09 Temperature Pulse Rate Respiratory Rate 14 Blood Pressure Pulse Oximetry 98 Intake & Output 05/29/18 05/30/18 05/30/18 18:59 06:59 18:59 Intake Total 1195 / 1195 806 / 806 200 / 200 Output Total 2100 / 2100 1900 / 1900 Balance -905 / -905 -1094 / -1094 200 / 200 Weight 82.5 kg Intake: IV 750 / 750 300 / 300 200 / 200 Cleviprex Inj 25 mg In 50 ml @ 0 / 0 1 MG/HR 2 mls/hr IV.CONT TITRATE PRN Rx#:[id number] Protonix Inj 80 MG In NS Inj 100 / 100 100 / 100 100 ML @ 10 mls/hr IV.CONT Q10H [facility] Rx#:[id number] Diprivan 1000 mg/100 ml Inj 1, 100 / 100 000 mg In 100 ml @ 5 MCG/KG/MIN 2.922 mls/hr IV.CONT TITRATE PRN Rx#:[id number] Azactam Inj 2 GM In NS Inj 100 200 / 200 100 / 100 100 / 100 ML @ 200 mls/hr IV.SIG Q8H [facility] Rx#:[id number] Magnesium Sulfate Inj 2 GM In 0 / 0 NS Inj 96 ML @ 50 mls/hr IV.SIG UNSCH PRN Rx#:[id number] Mycamine Inj 150 MG In NS Inj 100 / 100 0 / 0 100 ML @ 100 mls/hr IV.SIG Q24H [facility] Rx#:[id number] KCl 40 mEq Premix Inj 40 meq In 0 / 0 100 ml @ 25 mls/hr IV.SIG UNSCH PRN Rx#:[id number] Vancomycin Inj 1,000 MG In NS 250 / 250 0 / 0 Inj 250 ML @ 250 mls/hr IV.SIG Q24H [facility]ERY Rx#:[id number] Tube Feeding 85 / 85 246 / 246 Tube Irrigant 60 / 60 60 / 60 Water Bolus Amount 300 / 300 200 / 200 Output: Stool 200 / 200 Urine Amount (Catheter) 1450 / 1450 1300 / 1300 Indwelling Urethral Catheter 1450 / 1450 1300 / 1300 Gastric Drainage 450 / 450 600 / 600 Right Nare Nasogastric Tube 450 / 450 600 / 600 Other: Date of Last Bowel Movement 05/29/18 05/29/18 05/29/18 - Routine Abdominal Exam Present: soft, normoactive bowel sounds, wound Comments: IRIS and J tube intact - Urinary Catheter Management Indwelling Urethral Catheter Cath placed during this visit: yes Reason for continuing: Acute urinary retention Insertion date: 05/20/18 Insertion time: 19:55 Results - Labs 05/30/18 04:19 05/30/18 04:19 Laboratory Results - last 24 hr 05/30/18 05/30/18 04:19 04:19 WBC 16.9 H RBC 3.32 L Hgb 9.7 L Hct 30.2 L MCV 91.0 MCH 29.1 MCHC 32.0 RDW 15.9 Plt Count 105 L MPV 9.6 Neut % (Auto) 93.6 H Lymph % (Auto) 2.6 L [place] % (Auto) 3.5 Eos % (Auto) 0.2 Baso % (Auto) 0.1 Neut # (Auto) 15.8 H Lymph # (Auto) 0.4 L [place] # (Auto) 0.6 Eos # (Auto) 0.0 Baso # (Auto) 0.0 WBC Differential . Differential Comment Auto diff final Sodium 157 H* Potassium 3.4 L Chloride 124 H Carbon Dioxide 26.0 Anion Gap 7 BUN 55 H Creatinine 1.11 H Estimated GFR 47 L Random Glucose 109 H Calcium 8.3 L Total Bilirubin 0.8 AST 28 ALT 83 H Alkaline Phosphatase 85 Total Protein 5.5 L D Albumin 2.5 L - Imaging Imaging: ITS Impressions GI Bleed Scan Nuclear Medicine 05/19/18 00:00 CONCLUSION: 1. 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 Patient was emergently brought to the interventional radiology department from the nuclear medicine department for angiography and intervention. Mesenteric Arteriogram 05/19/18 14:37 CONCLUSION: 1. 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 2. 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 PICC Line Insertion 05/20/18 00:00 CONCLUSION: 1. Uncomplicated central venous Power PICC line placement. 2. The PICC line can be used immediately. Abdomen X-Ray 05/28/18 05:23 CONCLUSION: No dilated bowel loops. Abdomen/Pelvis CT 05/29/18 00:00 CONCLUSION: 1. Since the prior CT, midline laparotomy with gastrojejunostomy has been performed. Anastomosis appears patent. There is a nasogastric tube which extends beyond the site of surgery and is in the first portion of the duodenum. Unchanged metallic structure near the ligament of Treitz, etiology uncertain. 2. A jejunostomy tube has also been placed without evidence of an acute complication. 3. Small, nonspecific free fluid in the pelvic cavity. No evidence of abscess. 4. No acute solid organ abnormality. Cysts of both kidneys and nonobstructing stones of the left kidney are again noted. 5. Sigmoid colon diverticulosis without diverticulitis. Chest CT 05/29/18 11:52 CONCLUSION: 1. 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 2. Pneumonia with volume loss in the right lower lobe. 3. Coronary artery calcification. 4. Emphysema. Chest X-Ray 05/30/18 05:00 CONCLUSION: Stable appearance of the chest. Assessment and Plan - Assessment (1) GI bleed Code(s): K92.2 - Gastrointestinal hemorrhage, unspecified Status: Acute Plan: 82 year old female POD3 exploratory laparotomy, gastrojejunostomy, closure, j tube -Tolerating TF at goal of 55 cc/hr -Vent per CCM -Okay to start anticoagulation from GS standpoint ---discussed with [employer]EL[employer] Brenna -Wean sedation as tolerated - Plan wean as tolerated continue tube feeding JEAN Joyce in [facility].
--- NOTE | 2018-05-30 15:12 | ECHRPT ---
Indication: Sepsis Possible Endocarditis CONCLUSIONS Normal left ventricular size. Wall thickness is normal. The left ventricular systolic function is normal with an estimated ejection fraction in the range of 55-60%. The right ventricle was not well visualized. The left atrium was not well visualized. The right atrium is not well visualized. The interatrial septum not well visualized. The aortic root and proximal ascending aorta are not well visualized. The mitral valve is not well visualized. The aortic valve is not well visualized. There is trace tricuspid valve regurgitation. The pulmonary valve is not well visualized. The inferior vena cava was not well visualized. No obvious vegetations noted BP: / HR: Rhythm: MEASUREMENTS (Male / Female) Normal Values Technical Quality:Very technically difficult study 2D ECHO LV Diastolic Diameter PLAX 4.0 cm 4.2 - 5.9 / 3.9 - 5.3 cm LV Systolic Diameter PLAX 2.8 cm IVS Diastolic Thickness 0.9 cm 0.6 - 1.0 / 0.6 - 0.9 cm LVPW Diastolic Thickness 1.0 cm 0.6 - 1.0 / 0.6 - 0.9 cm LV Relative Wall Thickness 0.5 RV Internal Dim ED PLAX 2.6 cm Aortic Root Diameter 2.4 cm LA Systolic Diameter LX 3.2 cm 3.0 - 4.0 / 2.7 - 3.8 cm FINDINGS LEFT VENTRICLE Normal left ventricular size. Wall thickness is normal. The left ventricular systolic function is normal with an estimated ejection fraction in the range of 55-60%. RIGHT VENTRICLE The right ventricle was not well visualized. LEFT ATRIUM The left atrium was not well visualized. RIGHT ATRIUM The right atrium is not well visualized. ATRIAL SEPTUM The interatrial septum not well visualized. AORTA The aortic root and proximal ascending aorta are not well visualized. MITRAL VALVE The mitral valve is not well visualized. AORTIC VALVE The aortic valve is not well visualized. TRICUSPID VALVE Structurally normal tricuspid valve. There is trace tricuspid valve regurgitation. PULMONARY VALVE The pulmonary valve is not well visualized. VESSELS The inferior vena cava was not well visualized. PERICARDIUM No pericardial effusion. Edgar Way MD, FACC (Electronically Signed) Final Date:30 May 2018 15:11
[2018-05-30] MEDS: Potassium Chlor 20 mEq Premix 20 MEQ/100 ML PIGGYBACK IV.SIG PRN (17:17)
--- NOTE | 2018-05-30 17:57 | ECG ---
Date Performed: 05/28/2018 Time Performed: 15:50:58 PTAGE: 82 years EKG: Sinus tachycardia with PAC(s). Lateral T wave changes are nonspecific Borderline ECG PREVIOUS TRACING : 05/28/2018 15.50 DOCTOR: Thalia Dumont Interpretating Date/Time 05/30/2018 17:35:23
[2018-05-30] MEDS: Potassium Chloride 25 MEQ Effervescent Tablet PO PRN (20:09)
--- NOTE | 2018-05-30 20:09 | MB ---
cc: Sergio Pack MD,Manohar Lane MD DATE: 05/30/2018 DATE OF CONSULTATION: 05/30/2018 REQUESTING PHYSICIAN: Dr. Manohar Joyce. REASON FOR CONSULTATION: Evaluate for possible bronch and lung densities. HISTORY OF PRESENT ILLNESS: The patient is an 82-year-old female with a history of lung density. She had a thoracotomy and right lower lobectomy done in 2016. 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 At this time, the patient was admitted with a GI bleed, abdominal pain and black stools. She had a GI procedure done and then she underwent abdominal surgery. Currently, she is on a ventilator. She had a CAT scan of the chest done on 05/29/2018. It shows that she has a 3.3 cm mass-like opacity in the right hilum and narrowing of the right middle lobe bronchus. No pleural effusion. PAST MEDICAL HISTORY: History of lung mass, status of right lower lobectomy. She had amyloidosis and well-differentiated adenocarcinoma, history of breast biopsy, appendectomy, hysterectomy. MEDICATIONS: 1. She is currently taking [place] for pain. 2. Milk of magnesia. 3. Albuterol nebulizer treatment. 4. Amlodipine 5 mg a day. 5. Aztreonam 2 grams every 8 hours. 6. Cleviprex. 7. Clonidine p.r.n. 8. Fentanyl drip. 9. Heparin 10. Labetalol p.r.n. 11. Solu-Medrol 30 mg every 24 hours. 12. Protonix 80 mg a day. 13. Potassium supplement. ALLERGIES: SHE IS ALLERGIC TO SULFA, AMOXICILLIN, CODEINE. SOCIAL HISTORY: Has history of smoking in the past. FAMILY HISTORY: Not available. REVIEW OF SYSTEMS: Cannot assess. PHYSICAL EXAMINATION: GENERAL: Reveals an elderly female who is on a ventilator. She is sedated. VITAL SIGNS: Her blood pressure is 127/58, heart rate 94, respirations 18, temperature 98. HEENT: Pupils are equal and reactive. She is orally intubated. NECK: Supple. No JVD. CHEST: Good BS bilat, no rhonchi. HEART: S1, S2 normal. ABDOMEN: Obese, status post surgery. EXTREMITIES: 1+ pedal edema. IMPRESSION: 1. Right lung density, possible postsurgical changes. A new density is not ruled out. She has a history of right lower lobectomy, history of amyloidosis and adenocarcinoma of the lung. 2. Status post abdominal surgery. 3. Thrombocytopenia. PLAN: I discussed with the patient's daughter, Nohemy Davis. She is her daughter. I explained to her the procedure. She wants to hold off the procedure. She wants her to get better, extubated and then let the patient make the decision if she wants to proceed with any further intervention. She is currently on ventilator support, which will be weaned. Further treatment will depend on course in the hospital. MD TORIN Sheikh/juanito , 04:27 PM , 04:37 PM [facility]
[2018-05-31] MEDS: Aztreonam Inj 2 GM in Sodium Chloride 0.9% Inj 100 ML IV.SIG SCH ×3 (01:23→17:45)
[2018-05-31] MEDS: Pantoprazole Inj 80 MG in Sodium Chlor 0.9% Inj 100 ML IV.CONT SCH ×3 (03:14→23:21)
[2018-05-31] MEDS: Propofol 1000 mg/100 ml Inj 1,000 MG/100 ML BOTTLE IV.CONT PRN (05:12)
[2018-05-31 05:25] LABS: Baso % (Auto) 0.1 % (0.0-2.0); Eos # (Auto) 0.1 th/mm3 (0.0-0.4); Eos % (Auto) 0.7 % (0.0-4.0); Hematocrit 29.7 % (35.0-46.0); Hemoglobin 9.6 gm/dL (11.6-15.3); Lymph # (Auto) 0.5 th/mm3 (1.0-4.8); Lymph % (Auto) 3.7 % (9.0-44.0); Mean Corpuscular HGB Conc 32.2 % (32.0-36.0); Mean Corpuscular Hemoglobin 29.1 pg (27.0-34.0); Mean Corpuscular Volume 90.2 fL (80.0-100.0); Mono # (Auto) 0.4 th/mm3 (0.0-0.9); Mono % (Auto) 2.5 % (0.0-8.0); Neut # (Auto) 13.3 th/mm3 (1.8-7.7); Platelet Count 94 th/mm3 (150-450); Red Blood Count 3.29 mil/mm3 (4.00-5.30); Red Cell Distribution Width 15.5 % (11.6-17.2); White Blood Count 14.3 th/mm3 (4.0-11.0)
[2018-05-31 05:29] LABS: Activated Partial Thrombo Time 20.4 sec (23.4-31.7); INR 1.1 Ratio; Prothrombin Time 11.4 sec (9.8-11.6)
[2018-05-31 05:40] LABS: Alanine Aminotransferase 64 U/L (10-53); Albumin 2.4 g/dL (3.4-5.0); Alkaline Phosphatase 77 U/L (45-117); Anion Gap 7 meq/L (5-15); Aspartate Aminotransferase 17 U/L (15-37); Blood Urea Nitrogen 63 mg/dL (7-18); Calcium 8.4 mg/dL (8.5-10.1); Carbon Dioxide 25.8 meq/L (21.0-32.0); Chloride 126 meq/L (98-107); Glomerular Filtration Rate 44 mL/min (>89); Glucose,Random 118 mg/dL (74-106); Lactate Dehydrogenase 252 U/L (84-246); Potassium 3.6 meq/L (3.5-5.1); Total Protein 5.5 g/dL (6.4-8.2)
[2018-05-31 05:53] LABS: Sodium 159 meq/L (136-145)
[2018-05-31] MEDS: MethylPREDNISolone Sod Succinate Inj 40 MG/ML Vial IV.PUSH SCH (08:34)
[2018-05-31] MEDS: Senna/Docusate Sodium 8.6/50 MG Tablet PO SCH ×2 (08:34→20:06)
[2018-05-31] MEDS: Artificial Tears Opth Oint 3.5 GM Tube EACH EYE SCH ×2 (08:35→20:05)
[2018-05-31] MEDS: Potassium Chloride 25 MEQ Effervescent Tablet NG/OG SCH ×2 (08:35→20:05)
[2018-05-31] MEDS: Lidocaine 5% Patch T-DERMAL SCH (08:35)
[2018-05-31] MEDS: Heparin Central Flush 100 UNIT/ML 5 ML Vial IV.FLUSH SCH (08:36)
[2018-05-31] MEDS: amLODIPine 5 MG Tablet J-TUBE SCH (10:19)
[2018-05-31 11:26] LABS: Platelet Morphology Normal (Normal)
[2018-05-31] MEDS: Vancomycin Inj 1,000 MG in Sodium Chlor 0.9% Inj 250 ML IV.SIG SCH (12:09)
[2018-05-31 14:39] LABS: ABG Base Excess -1.2 mmol/L (-2-2); ABG PCO2 36 mmHg (38-42); ABG PO2 103 mmHg (61-120)
--- NOTE | 2018-05-31 14:49 | P.PNCC ---
Subjective Subjective Remarks/Hospital Course: Hospital Course: 82yF with history of amyloidosis who presented with GI bleeding, hypotension, and severe anemia. originally admitted to the floor. hgb continued to downtrend despite transfusions. today taken for EGD which found blood in the stomach and clot, but no active bleeding. despite this, hgb still did not improve. taken for bleeding scan which was very +. discussed case with Dr. Garcia/Dr. Garland in IR. review of admission CT abd/pelvis demonstrates possible bleeding at duodenal bulb concerning for ulceration. Taken emergently to IR for embolization which appears to be successful. I evaluated the patient upon arrival to the ICU post-IR procedure. she is stable. complaining of hip pain. hgb has improved appropriately. she denies other complaints. she asked me not to look at her groin sites because "my hips hurt and I am tired." Recent evaluation by bedside RN is without hematoma, and this evaluation is deferred at patient's request (bedside RN to continue to monitor for signs of hematoma). remainder of ROS negative. Subjective: 05/20: doing well. complaining of moderate abdominal pain 5/10. receiving iv dilaudid currently. plan for EGD today. hgb dropped from 7.8 to 7.4, but slightly more tachycardic today, and I am worried about ongoing bleeding, although it does appear to be much slower clinically than yesterday. I discussed with GI DISP[facility]ER that per my conversation with IR, the lesion may be in the 4th portion of the duodenum near the ligament and it may require further investigation that usual EGD, and possibly push enteroscopy. She stated she would convey to the proceduralist. Dr. Shin suggests type II NSTEMI secondary to anemia and I agree completely with his assessment. Given that she is going soon for repeat EGD with anesthesia, will give 1 additional unit of prbc as she clearly has demonstrated she needs higher hematocrit for oxygen carrying capacity to her known ischemic CAD lesions. 05/21: s/p exploratory laparotomy last night. open abdomen. hgb stable. became acutely hypotensive with increased wound vac output one time today- emergently gave 1 unit prbc and 1 unit plt empirically given sudden change in condition. significant 3rd space losses requiring additional resuscitative efforts. remains deeply sedated. off vasopressors. remains intubated. 05/22: more hemodynamically stable today. hgb stable. still high wound-vac output with 300-500mL/12h. uop remains adequate at 70-80mL/hr, but Cr slightly elevated over baseline. unable to start diuresis yet and clinically although developing anasarca in the tissues, appears intravascularly euvolemic but not overloaded. likely will not tolerate diuresis efforts without significant kidney injury at this present juncture. needs bringback and washout in OR, but will leave timing of this to general surgery. 05/23: Received from operating room in good condition. Abdominal wound closed following gastrojejunostomy. Joseph-Vieira drain in region of the duodenal stump, gastric anastomosis. Nasogastric tube to not be moved, good position in stomach, keep to low intermittent suction. Downstream jejunostomy tube for initiation of trickle feeds. Renal function this morning excellent, follow closely. Chemical ventilation for the next couple of days as we observe tension on the abdominal wall. Meticulously avoid fluid overload. At present she is hypertensive and tachycardic for which we will restart propofol and use boluses of fentanyl as needed. Baseline fentanyl drip is infusing. 05/24: Remains warm and well-perfused overnight. Urine output acceptable at 35- 40 cc/h. Tolerated spontaneous breathing trial well this morning, we keep on vent for another 24-48 hours. Generalized edema persists. 05/25: Intubated sedated heavily. Urine output excellent with Lasix overall 3 L. Currently remains grossly fluid overloaded approximately 20 kg up from admission weight. We will start scheduled Lasix 20 every 8 hours with potassium replacement to facilitate ventilator weaning. 05/26: Sedated, orally intubated on mech vent. Being diuresed. Elevated BP on lightening sedation noted. 05/27: Sedated, orally intubated on mechanical ventilation. Being diuresed. Failed CPAP trial earlier. On Cleviprex for hypertension 05/28: Had episode of emesis last night. NGT remains to suction. Febrile overnight with rising WBCs noted. Sputum culture and UA ordered 05/27, getting blood cultures and starting empiric Abx coverage. Being diuresed. Cleviprex gtt being titrated down. 05/29: Arousable, intubated on mechanical ventilation. Follows commands by nodding, squeezes my fingers on command. Febrile yesterday for which she had cultures sent and was started on empiric antibiotic coverage. Blood cultures 3 out of 4 are growing gram-positive cocci. Her central line and PICC line were discontinued yesterday. 05/30: Sedated, arousable, intubated on mechanical ventilation. Follows commands by nodding and squeezing my fingers. CT chest with right hilar mass near right mainstem bronchus. CT abdomen pelvis with postop changes. Being diuresed to mobilize fluid. Daily CPAP trials. Blood cultures with gram- positive cocci. 05/31: Patient remains intubated off all sedation more awake today wakes up easily follows commands. Urine output adequate sodium is 159. I have placed her on quarter normal saline and increase the free water flushes. Still receiving Lasix Objective Vital Signs / I&O: Vital Signs 05/30/18 15:00 05/30/18 15:06 05/30/18 15:15 Temperature Pulse Rate 86 87 91 H Respiratory Rate Blood Pressure 125/59 L Pulse Oximetry 99 99 99 05/30/18 15:30 05/30/18 15:45 05/30/18 16:00 Temperature 98.7 F 98.7 F Pulse Rate 88 87 84 Respiratory Rate Blood Pressure 140/63 Pulse Oximetry 99 99 99 05/30/18 16:06 05/30/18 16:15 05/30/18 16:27 Temperature Pulse Rate 86 92 H Respiratory Rate 14 Blood Pressure 140/63 Pulse Oximetry 99 99 100 05/30/18 16:30 05/30/18 16:45 05/30/18 17:00 Temperature Pulse Rate 92 H 94 H 93 H Respiratory Rate Blood Pressure Pulse Oximetry 99 98 98 05/30/18 17:06 05/30/18 17:15 05/30/18 17:30 Temperature Pulse Rate 92 H 97 H 94 H Respiratory Rate Blood Pressure 130/62 Pulse Oximetry 99 99 99 05/30/18 17:45 05/30/18 18:00 05/30/18 18:06 Temperature Pulse Rate 88 87 86 Respiratory Rate Blood Pressure 104/55 L Pulse Oximetry 98 98 98 05/30/18 19:00 05/30/18 19:06 05/30/18 20:00 Temperature Pulse Rate 73 83 83 Respiratory Rate Blood Pressure 140/63 Pulse Oximetry 99 99 98 05/30/18 20:06 05/30/18 21:00 05/30/18 21:02 Temperature Pulse Rate 72 85 Respiratory Rate 14 Blood Pressure 100/50 L Pulse Oximetry 98 99 98 05/30/18 21:06 05/30/18 22:00 05/30/18 22:06 Temperature Pulse Rate 90 91 H 95 H Respiratory Rate Blood Pressure 155/72 H 133/60 Pulse Oximetry 100 97 98 05/30/18 23:00 05/30/18 23:06 05/30/18 23:41 Temperature Pulse Rate 94 H 86 Respiratory Rate 14 Blood Pressure 128/60 Pulse Oximetry 95 96 97 05/31/18 00:00 05/31/18 00:06 05/31/18 01:00 Temperature 98.2 F Pulse Rate 81 88 90 Respiratory Rate Blood Pressure 119/58 L Pulse Oximetry 98 98 98 05/31/18 01:06 05/31/18 02:00 05/31/18 02:06 Temperature Pulse Rate 93 H 84 83 Respiratory Rate Blood Pressure 159/73 H 103/59 L Pulse Oximetry 98 98 98 05/31/18 03:00 05/31/18 03:06 05/31/18 04:00 Temperature 98.0 F Pulse Rate 72 72 73 Respiratory Rate Blood Pressure 100/54 L Pulse Oximetry 98 98 98 05/31/18 04:06 05/31/18 04:15 05/31/18 05:00 Temperature Pulse Rate 80 73 Respiratory Rate 14 Blood Pressure 137/64 Pulse Oximetry 98 97 97 05/31/18 05:06 05/31/18 06:00 05/31/18 06:06 Temperature Pulse Rate 80 98 H 97 H Respiratory Rate Blood Pressure 128/60 148/66 H Pulse Oximetry 97 97 97 05/31/18 07:00 05/31/18 07:06 05/31/18 08:00 Temperature 98.2 F Pulse Rate 90 95 H 97 H Respiratory Rate 16 Blood Pressure 147/66 H 140/62 Pulse Oximetry 97 98 98 05/31/18 08:06 05/31/18 08:22 05/31/18 09:00 Temperature Pulse Rate 84 96 H Respiratory Rate 25 H Blood Pressure 140/62 Pulse Oximetry 97 97 94 L 05/31/18 09:06 05/31/18 10:00 05/31/18 10:06 Temperature Pulse Rate 102 H 99 H 99 H Respiratory Rate Blood Pressure 141/63 H 113/54 L Pulse Oximetry 96 95 95 12/09/18 11:26 Temperature Pulse Rate Respiratory Rate 19 Blood Pressure Pulse Oximetry 97 Intake & Output 05/30/18 05/31/18 05/31/18 18:59 06:59 18:59 Intake Total 1449 / 1449 1298 / 1298 100 / 100 Output Total 1800 / 1800 2100 / 2100 Balance -351 / -351 -802 / -802 100 / 100 Weight 76.1 kg Intake: IV 750 / 750 550 / 550 100 / 100 Cleviprex Inj 25 mg In 50 ml @ 0 / 0 1 MG/HR 2 mls/hr IV.CONT TITRATE PRN Rx#:[id number] Protonix Inj 80 MG In NS Inj 100 / 100 100 / 100 100 ML @ 10 mls/hr IV.CONT Q10H [facility]ERY Rx#:[id number] Diprivan 1000 mg/100 ml Inj 1, 100 / 100 100 / 100 000 mg In 100 ml @ 5 MCG/KG/MIN 2.922 mls/hr IV.CONT TITRATE PRN Rx#:[id number] Azactam Inj 2 GM In NS Inj 100 200 / 200 100 / 100 100 / 100 ML @ 200 mls/hr IV.SIG Q8H VALERY Rx#:[id number] Magnesium Sulfate Inj 2 GM In 0 / 0 NS Inj 96 ML @ 50 mls/hr IV.SIG UNSCH PRN Rx#:[id number] Mycamine Inj 150 MG In NS Inj 0 / 0 100 ML @ 100 mls/hr IV.SIG Q24H VALERY Rx#:[id number] KCl 20 mEq Premix Inj 20 meq In 100 / 100 100 ml @ 50 mls/hr IV.SIG Q2H PRN Rx#:[id number] KCl 40 mEq Premix Inj 40 meq In 0 / 0 100 ml @ 25 mls/hr IV.SIG UNSCH PRN Rx#:[id number] Vancomycin Inj 1,000 MG In NS 250 / 250 Inj 250 ML @ 250 mls/hr IV.SIG Q24H VALERY Rx#:[id number] fentaNYL 10 mcg/mL Premix Drip 250 / 250 2,500 mcg In 250 ml @ 50 MCG/HR 5 mls/hr IV.SIG TITRATE PRN Rx #:[id number] Tube Feeding 339 / 339 448 / 448 Tube Irrigant 60 / 60 Water Bolus Amount 300 / 300 300 / 300 Output: Stool 50 / 50 250 / 250 Urine Amount (Catheter) 1300 / 1300 1300 / 1300 Indwelling Urethral Catheter 1300 / 1300 1300 / 1300 Gastric Drainage 450 / 450 550 / 550 Right Nare Nasogastric Tube 450 / 450 550 / 550 Other: Date of Last Bowel Movement 06/19/18 05/30/18 05/30/18 Result Diagrams: 05/31/18 03:57 05/31/18 03:57 Objective Remarks: GENERAL: mechanically ventilated, calm. Tolerating CPAP HEENT: Normocephalic. Atraumatic. GEOVANI. Orotracheal intubation. CHEST: Orally intubated on mechanical ventilation, clear breath sounds bilaterally, equal chest rise. Air entry diminished at the bases. CARDIOVASCULAR: Normal S1-S2. Regular normal rate, regular rhythm. No JVD. ABDOMEN: Fascia closed, postsurgical wound intact, abdominal binder in place. Soft, nondistended. Few bowel sounds heard. MUSCULOSKELETAL: Bilateral foot pulses 2+. bilateral foot and ankle edema. Warm and well-perfused fingers and toes. NEUROLOGICAL: Drowsy, easily arousable, opens eyes on command,, withdraws 4 limbs, localizes, breathing spontaneously over the ventilator. Assessment and Plan - Assessment and Plan Plan: Assessment: 82yF with amyloidosis and active GI bleed. s/p emergent IA embolization 05/19. s/p EGD 05/19 and again 05/20 with ischemia present. s/p emergent exploratory laparotomy with duodenal and jejunal resection, initially left in discontinuity with open abdomen, and now reconstructed with abdominal wall closure. Remains critically ill. Scheduled Lasix for aggressive diuresis. Quarter normal saline started for hypernatremia Active upper GI bleed Acute hypoxic and hypercarbic respiratory failure s/p emergent exploratory laparotomy with duodenal and jejunal resection, initially left in discontinuity with open abdomen 05/20 Now reconstructed with abdominal wall closure. severe acute anemia secondary to blood loss requiring transfusion- persistent duodenal ulcer Type II NSTEMI secondary to demand ischemia from severe anemia s/p EGD 05/19, 05/20 s/p emergent IR embolization 05/19 severe acute thrombocytopenia - ITP acute protein calorie malnutrition- moderate to severe Fluid overload sepsis Pneumonia Gram-positive cocci bacteremia Right hilar mass Plan: - [facility] ventilator mode. Daily spontaneous breathing trials. -Hold all sedation for possible extubation - Continue IV Lasix 20 mg every 12 hours with potassium replacement - Quarter normal saline started for hypernatremia, increase free water flushes - F/u cultures, empiric abx with azactam, zyvox, flagyl via G tube. ID consulted for further abx management, sepsis eval. micafungin added by ID on 05/28. - Blood cultures from 05/28 growing gram-positive cocci (3 out of 4) - Pulmonary consult requested for right hilar mass on CT chest done on 05/29. Per Dr. Pack's note daughter, Nohemy Davis wants to hold off bronchoscopy. Once extubated patient can make a decision - Labetalol prn, Cardene gtt to keep SBP less than 160mm Hg, Norvasc 5mg via J tube daily started 05/26 - Serial hemoglobin, transfuse to keep hgb > 7 - serially check platelets, transfuse to keep plt > 50k. Tapering solumedrol, decreased to 30mg daily - tube feeds per general surgery, through jejunostomy. NGT to suction. -Strict intake output, monitor and replete elect lites, follow BUN and creatinine. - ICU electrolyte replacement protocol - SCDs. Start subcu heparin when cleared by general surgery/ Heme-onc. 05/28: Discussed with ID, discussed with Dr. James, discussed with patient's daughter at bedside. 05/29: Discussed with ID Dr. Dhillon, discussed with patient's daughter Raciel Conley and updated her regarding current clinical status including plan of care and she voiced understanding and was agreeable. Overall impression: This patient remains critically ill with fluctuating renal function, fluid overload and compromised respiratory reserve due to recent resuscitation volume and generalized edema, complicated by sepsis. Slowly improving tolerating CPAP trials today possible extubation today Level 3
[2018-05-31] MEDS: Sodium Chloride 23.4% Inj 38.5 MEQ in Water for Inj, Sterile 1,000 ML IV.CONT SCH (15:41)
--- NOTE | 2018-05-31 15:57 | P.PNPL ---
Subjective Interval history: 82 YOWF with H?o Rllobectomy, amyloidosis and adenoca lung Had abd surgery Extubated today NGT to suction on NC Physical Exam Vital signs: Vital Signs 05/30/18 16:00 05/30/18 16:06 05/30/18 16:15 Temperature 98.7 F Pulse Rate 84 86 92 H Respiratory Rate Blood Pressure 140/63 140/63 Pulse Oximetry 99 99 99 05/30/18 16:27 05/30/18 16:30 05/30/18 16:45 Temperature Pulse Rate 92 H 94 H Respiratory Rate 14 Blood Pressure Pulse Oximetry 100 99 98 05/30/18 17:00 05/30/18 17:06 05/30/18 17:15 Temperature Pulse Rate 93 H 92 H 97 H Respiratory Rate Blood Pressure 130/62 Pulse Oximetry 98 99 99 05/30/18 17:30 05/30/18 17:45 05/30/18 18:00 Temperature Pulse Rate 94 H 88 87 Respiratory Rate Blood Pressure Pulse Oximetry 99 98 98 05/30/18 18:06 05/30/18 19:00 05/30/18 19:06 Temperature Pulse Rate 86 73 83 Respiratory Rate Blood Pressure 104/55 L 140/63 Pulse Oximetry 98 99 99 05/30/18 20:00 05/30/18 20:06 05/30/18 21:00 Temperature Pulse Rate 83 72 85 Respiratory Rate Blood Pressure 100/50 L Pulse Oximetry 98 98 99 05/30/18 21:02 05/30/18 21:06 05/30/18 22:00 Temperature Pulse Rate 90 91 H Respiratory Rate 14 Blood Pressure 155/72 H Pulse Oximetry 98 100 97 05/30/18 22:06 05/30/18 23:00 05/30/18 23:06 Temperature Pulse Rate 95 H 94 H 86 Respiratory Rate Blood Pressure 133/60 128/60 Pulse Oximetry 98 95 96 05/30/18 23:41 05/31/18 00:00 05/31/18 00:06 Temperature 98.2 F Pulse Rate 81 88 Respiratory Rate 14 Blood Pressure 119/58 L Pulse Oximetry 97 98 98 05/31/18 01:00 05/31/18 01:06 05/31/18 02:00 Temperature Pulse Rate 90 93 H 84 Respiratory Rate Blood Pressure 159/73 H Pulse Oximetry 98 98 98 05/31/18 02:06 05/31/18 03:00 05/31/18 03:06 Temperature Pulse Rate 83 72 72 Respiratory Rate Blood Pressure 103/59 L 100/54 L Pulse Oximetry 98 98 98 05/31/18 04:00 05/31/18 04:06 05/31/18 04:15 Temperature 98.0 F Pulse Rate 73 80 Respiratory Rate 14 Blood Pressure 137/64 Pulse Oximetry 98 98 97 05/31/18 05:00 05/31/18 05:06 05/31/18 06:00 Temperature Pulse Rate 73 80 98 H Respiratory Rate Blood Pressure 128/60 Pulse Oximetry 97 97 97 05/31/18 06:06 05/31/18 07:00 05/31/18 07:06 Temperature Pulse Rate 97 H 90 95 H Respiratory Rate Blood Pressure 148/66 H 147/66 H Pulse Oximetry 97 97 98 05/31/18 08:00 05/31/18 08:06 05/31/18 08:22 Temperature 98.2 F Pulse Rate 97 H 84 Respiratory Rate 16 25 H Blood Pressure 140/62 140/62 Pulse Oximetry 98 97 97 05/31/18 09:00 05/31/18 09:06 05/31/18 10:00 Temperature Pulse Rate 96 H 102 H 99 H Respiratory Rate Blood Pressure 141/63 H Pulse Oximetry 94 L 96 95 05/31/18 10:06 05/31/18 11:26 Temperature Pulse Rate 99 H Respiratory Rate 19 Blood Pressure 113/54 L Pulse Oximetry 95 97 Intake & Output 05/30/18 05/31/18 05/31/18 18:59 06:59 18:59 Intake Total 1449 / 1449 1298 / 1298 200 / 200 Output Total 1800 / 1800 2100 / 2100 Balance -351 / -351 -802 / -802 200 / 200 Weight 76.1 kg Intake: IV 750 / 750 550 / 550 200 / 200 Cleviprex Inj 25 mg In 50 ml @ 0 / 0 1 MG/HR 2 mls/hr IV.CONT TITRATE PRN Rx#:[id number] Protonix Inj 80 MG In NS Inj 100 / 100 100 / 100 100 / 100 100 ML @ 10 mls/hr IV.CONT Q10H [facility] Rx#:[id number] Diprivan 1000 mg/100 ml Inj 1, 100 / 100 100 / 100 000 mg In 100 ml @ 5 MCG/KG/MIN 2.922 mls/hr IV.CONT TITRATE PRN Rx#:[id number] Azactam Inj 2 GM In NS Inj 100 200 / 200 100 / 100 100 / 100 ML @ 200 mls/hr IV.SIG Q8H [facility] Rx#:[id number] Magnesium Sulfate Inj 2 GM In 0 / 0 NS Inj 96 ML @ 50 mls/hr IV.SIG UNSCH PRN Rx#:[id number] Mycamine Inj 150 MG In NS Inj 0 / 0 100 ML @ 100 mls/hr IV.SIG Q24H [facility] Rx#:[id number] KCl 20 mEq Premix Inj 20 meq In 100 / 100 100 ml @ 50 mls/hr IV.SIG Q2H PRN Rx#:[id number] KCl 40 mEq Premix Inj 40 meq In 0 / 0 100 ml @ 25 mls/hr IV.SIG UNSCH PRN Rx#:[id number] Vancomycin Inj 1,000 MG In NS 250 / 250 Inj 250 ML @ 250 mls/hr IV.SIG Q24H [facility] Rx#:[id number] fentaNYL 10 mcg/mL Premix Drip 250 / 250 2,500 mcg In 250 ml @ 50 MCG/HR 5 mls/hr IV.SIG TITRATE PRN Rx #:[id number] Tube Feeding 339 / 339 448 / 448 Tube Irrigant 60 / 60 Water Bolus Amount 300 / 300 300 / 300 Output: Stool 50 / 50 250 / 250 Urine Amount (Catheter) 1300 / 1300 1300 / 1300 Indwelling Urethral Catheter 1300 / 1300 1300 / 1300 Gastric Drainage 450 / 450 550 / 550 Right Nare Nasogastric Tube 450 / 450 550 / 550 Other: Date of Last Bowel Movement 06/19/18 05/30/18 05/30/18 GENERAL: WBWN Mild sob SKIN: Warm and dry. HEAD: Normocephalic. EYES: No scleral icterus. No injection or drainage. NECK: Supple, trachea midline. No JVD or lymphadenopathy. CARDIOVASCULAR: Regular rate and rhythm without murmurs, gallops, or rubs. RESPIRATORY: Breath sounds equal bilaterally. No accessory muscle use. GASTROINTESTINAL: Abdomen soft, non-tender, nondistended. MUSCULOSKELETAL: No cyanosis, or edema. BACK: Nontender without obvious deformity. No CVA tenderness. - Urinary Catheter Management Indwelling Urethral Catheter Cath placed during this visit: yes Reason for continuing: Acute urinary retention Insertion date: 05/20/18 Insertion time: 19:55 Assessment and Plan - Plan IMPRESSION: 1. Right lung density, possible postsurgical changes. A new density is not ruled out. She has a history of right lower lobectomy, history of amyloidosis and adenocarcinoma of the lung. 2. Status post abdominal surgery. 3. Thrombocytopenia. PLAN: Supplement 02 NGT to suction family declined bronch for now They will discuss with pt whenshe is strong enough.
--- NOTE | 2018-05-31 16:20 | P.PNGS ---
Subjective Patient reports: feels better, bowel movement Physical Exam Vital signs: Vital Signs 05/30/18 16:27 05/30/18 16:30 05/30/18 16:45 Temperature Pulse Rate 92 H 94 H Respiratory Rate 14 Blood Pressure Pulse Oximetry 100 99 98 05/30/18 17:00 05/30/18 17:06 05/30/18 17:15 Temperature Pulse Rate 93 H 92 H 97 H Respiratory Rate Blood Pressure 130/62 Pulse Oximetry 98 99 99 05/30/18 17:30 05/30/18 17:45 05/30/18 18:00 Temperature Pulse Rate 94 H 88 87 Respiratory Rate Blood Pressure Pulse Oximetry 99 98 98 05/30/18 18:06 05/30/18 19:00 05/30/18 19:06 Temperature Pulse Rate 86 73 83 Respiratory Rate Blood Pressure 104/55 L 140/63 Pulse Oximetry 98 99 99 05/30/18 20:00 05/30/18 20:06 05/30/18 21:00 Temperature Pulse Rate 83 72 85 Respiratory Rate Blood Pressure 100/50 L Pulse Oximetry 98 98 99 05/30/18 21:02 05/30/18 21:06 05/30/18 22:00 Temperature Pulse Rate 90 91 H Respiratory Rate 14 Blood Pressure 155/72 H Pulse Oximetry 98 100 97 05/30/18 22:06 05/30/18 23:00 05/30/18 23:06 Temperature Pulse Rate 95 H 94 H 86 Respiratory Rate Blood Pressure 133/60 128/60 Pulse Oximetry 98 95 96 05/30/18 23:41 05/31/18 00:00 05/31/18 00:06 Temperature 98.2 F Pulse Rate 81 88 Respiratory Rate 14 Blood Pressure 119/58 L Pulse Oximetry 97 98 98 05/31/18 01:00 05/31/18 01:06 05/31/18 02:00 Temperature Pulse Rate 90 93 H 84 Respiratory Rate Blood Pressure 159/73 H Pulse Oximetry 98 98 98 05/31/18 02:06 05/31/18 03:00 05/31/18 03:06 Temperature Pulse Rate 83 72 72 Respiratory Rate Blood Pressure 103/59 L 100/54 L Pulse Oximetry 98 98 98 05/31/18 04:00 05/31/18 04:06 05/31/18 04:15 Temperature 98.0 F Pulse Rate 73 80 Respiratory Rate 14 Blood Pressure 137/64 Pulse Oximetry 98 98 97 05/31/18 05:00 05/31/18 05:06 05/31/18 06:00 Temperature Pulse Rate 73 80 98 H Respiratory Rate Blood Pressure 128/60 Pulse Oximetry 97 97 97 05/31/18 06:06 05/31/18 07:00 05/31/18 07:06 Temperature Pulse Rate 97 H 90 95 H Respiratory Rate Blood Pressure 148/66 H 147/66 H Pulse Oximetry 97 97 98 05/31/18 08:00 05/31/18 08:06 05/31/18 08:22 Temperature 98.2 F Pulse Rate 97 H 84 Respiratory Rate 16 25 H Blood Pressure 140/62 140/62 Pulse Oximetry 98 97 97 05/31/18 09:00 05/31/18 09:06 05/31/18 10:00 Temperature Pulse Rate 96 H 102 H 99 H Respiratory Rate Blood Pressure 141/63 H Pulse Oximetry 94 L 96 95 05/31/18 10:06 05/31/18 11:00 05/31/18 11:06 Temperature Pulse Rate 99 H 103 H 103 H Respiratory Rate Blood Pressure 113/54 L 125/59 L Pulse Oximetry 95 96 96 05/31/18 11:26 05/31/18 12:00 05/31/18 12:06 Temperature 98.8 F Pulse Rate 104 H 106 H Respiratory Rate 19 20 Blood Pressure 125/59 L 143/65 H Pulse Oximetry 97 97 98 05/31/18 13:00 05/31/18 13:06 05/31/18 14:00 Temperature Pulse Rate 97 H 96 H 97 H Respiratory Rate Blood Pressure 128/61 Pulse Oximetry 97 97 97 05/31/18 14:06 05/31/18 15:00 05/31/18 15:06 Temperature Pulse Rate 98 H 106 H 105 H Respiratory Rate 18 Blood Pressure 129/59 L 138/63 138/63 Pulse Oximetry 97 98 96 05/31/18 16:00 05/31/18 16:06 Temperature 99 F Pulse Rate 101 H 102 H Respiratory Rate 21 Blood Pressure 136/63 136/63 Pulse Oximetry 98 97 Intake & Output 05/30/18 05/31/18 05/31/18 18:59 06:59 18:59 Intake Total 1449 / 1449 1298 / 1298 655 / 655 Output Total 1800 / 1800 2100 / 2099 Balance -351 / -351 -802 / -802 655 / 655 Weight 76.1 kg Intake: IV 750 / 750 550 / 550 655 / 655 Cleviprex Inj 25 mg In 50 ml @ 0 / 0 1 MG/HR 2 mls/hr IV.CONT TITRATE PRN Rx#:[id number] Protonix Inj 80 MG In NS Inj 100 / 100 100 / 100 100 / 100 100 ML @ 10 mls/hr IV.CONT Q10H [facility] Rx#:[id number] Diprivan 1000 mg/100 ml Inj 1, 100 / 100 100 / 100 80 / 80 000 mg In 100 ml @ 5 MCG/KG/MIN 2.922 mls/hr IV.CONT TITRATE PRN Rx#:[id number] Azactam Inj 2 GM In NS Inj 100 200 / 200 100 / 100 100 / 100 ML @ 200 mls/hr IV.SIG Q8H [facility] Rx#:[id number] Magnesium Sulfate Inj 2 GM In 0 / 0 NS Inj 96 ML @ 50 mls/hr IV.SIG UNSCH PRN Rx#:[id number] Mycamine Inj 150 MG In NS Inj 0 / 0 100 ML @ 100 mls/hr IV.SIG Q24H [facility] Rx#:[id number] KCl 20 mEq Premix Inj 20 meq In 100 / 100 100 ml @ 50 mls/hr IV.SIG Q2H [facility] Rx#:[id number] KCl 40 mEq Premix Inj 40 meq In 0 / 0 100 ml @ 25 mls/hr IV.SIG UNSCH PRN Rx#:[id number] Vancomycin Inj 1,000 MG In NS 250 / 250 250 / 250 Inj 250 ML @ 250 mls/hr IV.SIG Q24H [facility] Rx#:[id number] fentaNYL 10 mcg/mL Premix Drip 250 / 250 125 / 125 2,500 mcg In 250 ml @ 50 MCG/HR 5 mls/hr IV.SIG TITRATE PRN Rx #:[id number] Tube Feeding 339 / 339 448 / 448 Tube Irrigant 60 / 60 Water Bolus Amount 300 / 300 300 / 300 Output: Stool 50 / 50 250 / 250 Urine Amount (Catheter) 1300 / 1300 1300 / 1300 Indwelling Urethral Catheter 1300 / 1300 1300 / 1300 Gastric Drainage 450 / 450 550 / 550 Right Nare Nasogastric Tube 450 / 450 550 / 550 Other: Date of Last Bowel Movement 06/19/18 05/30/18 05/30/18 - Constitutional no acute distress - Routine Abdominal Exam Present: soft, normoactive bowel sounds, tenderness. Absent: distended, rebound , guarding, firm - Urinary Catheter Management Indwelling Urethral Catheter Cath placed during this visit: yes Reason for continuing: Acute urinary retention Insertion date: 05/20/18 Insertion time: 19:55 Results - Labs 05/31/18 03:57 05/31/18 03:57 Laboratory Results - last 24 hr 05/31/18 05/31/18 05/31/18 03:57 03:57 03:57 WBC 14.3 H RBC 3.29 L Hgb 9.6 L Hct 29.7 L MCV 90.2 MCH 29.1 MCHC 32.2 RDW 15.5 Plt Count 94 L MPV 10.0 Prelim Diff (Auto) Slide review pending Neut % (Auto) 93.0 H Lymph % (Auto) 3.7 L [place] % (Auto) 2.5 Eos % (Auto) 0.7 Baso % (Auto) 0.1 Neut # (Auto) 13.3 H Lymph # (Auto) 0.5 L [place] # (Auto) 0.4 Eos # (Auto) 0.1 Baso # (Auto) 0.0 WBC Differential . Diff Scan Auto diff confirmed Differential Comment . Platelet Estimate Low L Platelet Morphology Normal PT 11.4 INR 1.1 APTT 20.4 L Fibrinogen 353 Puncture Site Patient Temperature O2 Saturation ABG pH ABG pCO2 ABG pO2 ABG HCO3 ABG O2 Content ABG Base Excess ABG Methemoglobin [place] Test Hemoglobin Carboxyhemoglobin O2 Delivery Device Vent Setting Inspired O2 Critical Value Sodium 159 H* Potassium 3.6 Chloride 126 H Carbon Dioxide 25.8 Anion Gap 7 BUN 63 H Creatinine 1.19 H Estimated GFR 44 L Random Glucose 118 H Calcium 8.4 L Total Bilirubin 0.5 AST 17 ALT 64 H Alkaline Phosphatase 77 Lactate Dehydrogenase 252 H Total Protein 5.5 L Albumin 2.4 L 05/31/18 14:29 WBC RBC Hgb Hct MCV MCH MCHC RDW Plt Count MPV Prelim Diff (Auto) Neut % (Auto) Lymph % (Auto) [place] % (Auto) Eos % (Auto) Baso % (Auto) Neut # (Auto) Lymph # (Auto) [place] # (Auto) Eos # (Auto) Baso # (Auto) WBC Differential Diff Scan Differential Comment Platelet Estimate Platelet Morphology PT INR APTT Fibrinogen Puncture Site Right radial Patient Temperature 98.6 O2 Saturation 95 ABG pH 7.41 ABG pCO2 36 L ABG pO2 103 ABG HCO3 23 ABG O2 Content 12.9 ABG Base Excess -1.2 ABG Methemoglobin 0.8 [place] Test Present Hemoglobin 9.5 L Carboxyhemoglobin 0.4 O2 Delivery Device Ventilator Vent Setting Cpap/psv8/+5/30% Inspired O2 30 Critical Value No Sodium Potassium Chloride Carbon Dioxide Anion Gap BUN Creatinine Estimated GFR Random Glucose Calcium Total Bilirubin AST ALT Alkaline Phosphatase Lactate Dehydrogenase Total Protein Albumin - Imaging Imaging: ITS Impressions GI Bleed Scan Nuclear Medicine 05/19/18 00:00 CONCLUSION: 1. 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 Patient was emergently brought to the interventional radiology department from the nuclear medicine department for angiography and intervention. Mesenteric Arteriogram 05/19/18 14:37 CONCLUSION: 1. 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 2. 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 PICC Line Insertion 05/20/18 00:00 CONCLUSION: 1. Uncomplicated central venous Power PICC line placement. 2. The PICC line can be used immediately. Abdomen X-Ray 05/28/18 05:23 CONCLUSION: No dilated bowel loops. Abdomen/Pelvis CT 05/29/18 00:00 CONCLUSION: 1. Since the prior CT, midline laparotomy with gastrojejunostomy has been performed. Anastomosis appears patent. There is a nasogastric tube which extends beyond the site of surgery and is in the first portion of the duodenum. Unchanged metallic structure near the ligament of Treitz, etiology uncertain. 2. A jejunostomy tube has also been placed without evidence of an acute complication. 3. Small, nonspecific free fluid in the pelvic cavity. No evidence of abscess. 4. No acute solid organ abnormality. Cysts of both kidneys and nonobstructing stones of the left kidney are again noted. 5. Sigmoid colon diverticulosis without diverticulitis. Chest CT 05/29/18 11:52 CONCLUSION: 1. 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 2. Pneumonia with volume loss in the right lower lobe. 3. Coronary artery calcification. 4. Emphysema. Chest X-Ray 05/30/18 05:00 CONCLUSION: Stable appearance of the chest. Assessment and Plan - Assessment (1) GI bleed Code(s): K92.2 - Gastrointestinal hemorrhage, unspecified Status: Acute Plan: 82 year old female POD4 exploratory laparotomy, gastrojejunostomy, closure, j tube -Tolerating TF at goal of 50 cc/hr -off vent -NG output high -PT/rehab
[2018-06-01] MEDS: HYDROmorphone PF Inj 2 MG/ML Vial IV.PUSH PRN (01:09)
[2018-06-01] MEDS: Aztreonam Inj 2 GM in Sodium Chloride 0.9% Inj 100 ML IV.SIG SCH ×3 (01:09→18:00)
[2018-06-01] MEDS: Sodium Chloride 23.4% Inj 38.5 MEQ in Water for Inj, Sterile 1,000 ML IV.CONT SCH ×2 (03:36→15:42)
[2018-06-01 04:53] LABS: Baso % (Auto) 0.2 % (0.0-2.0); Eos # (Auto) 0.1 th/mm3 (0.0-0.4); Hematocrit 29.1 % (35.0-46.0); Hemoglobin 9.3 gm/dL (11.6-15.3); Lymph # (Auto) 0.5 th/mm3 (1.0-4.8); Lymph % (Auto) 3.8 % (9.0-44.0); Mean Corpuscular HGB Conc 31.9 % (32.0-36.0); Mean Corpuscular Volume 91.2 fL (80.0-100.0); Mean Platelet Volume 9.9 fL (7.0-11.0); Mono # (Auto) 0.4 th/mm3 (0.0-0.9); Mono % (Auto) 2.6 % (0.0-8.0); Neut # (Auto) 12.7 th/mm3 (1.8-7.7); Neut % (Auto) 92.4 % (16.0-70.0); Platelet Count 88 th/mm3 (150-450); Red Blood Count 3.19 mil/mm3 (4.00-5.30); Red Cell Distribution Width 15.5 % (11.6-17.2); White Blood Count 13.8 th/mm3 (4.0-11.0)
[2018-06-01 04:54] LABS: Albumin 2.5 g/dL (3.4-5.0); Anion Gap 8 meq/L (5-15); Aspartate Aminotransferase 25 U/L (15-37); Blood Urea Nitrogen 59 mg/dL (7-18); Calcium 8.2 mg/dL (8.5-10.1); Carbon Dioxide 23.1 meq/L (21.0-32.0); Chloride 124 meq/L (98-107); Glomerular Filtration Rate 53 mL/min (>89); Glucose,Random 108 mg/dL (74-106); Potassium 3.5 meq/L (3.5-5.1); Sodium 155 meq/L (136-145)
[2018-06-01 04:56] LABS: Alanine Aminotransferase 56 U/L (10-53)
[2018-06-01 04:58] LABS: Alkaline Phosphatase 74 U/L (45-117); Total Protein 5.6 g/dL (6.4-8.2)
--- NOTE | 2018-06-01 05:16 | XR ---
EXAM DATE: 06/01/2018 4:46 AM EST AGE/SEX: 82 years / Female INDICATIONS: Respiratory distress. CLINICAL DATA: This is the patient's subsequent encounter. Patient reports that signs and symptoms h ave been present for 2 weeks and indicates a pain score of Nonresponsive. MEDICAL/SURGICAL HISTORY: Anemia. Right lower lobe mass. Sjogren's syndrome. Coronary artery s tent. Lobectomy. COMPARISON: 05/30/2018. FINDINGS: Single AP view the chest. Endotracheal tube no longer seen. Nasogastric tube remains in place. Mild p atchy lower lung zone opacity likely representing atelectasis. Mild elevation right hemidiaphragm aga in seen. No evidence of pleural effusion or pneumothorax. Cardiomediastinal silhouette unchanged. CONCLUSION: 1. New mild bilateral lower lung zone opacity likely representing atelectasis. 2. Endotracheal tube no longer seen. Electronically signed by: Robert Le MD 06/01/2018 5:14 AM EST
[2018-06-01] MEDS: Potassium Chloride 25 MEQ Effervescent Tablet NG/OG SCH ×2 (08:19→20:30)
[2018-06-01] MEDS: Heparin Central Flush 100 UNIT/ML 5 ML Vial IV.FLUSH SCH (08:19)
[2018-06-01] MEDS: Lidocaine 5% Patch T-DERMAL SCH (08:20)
[2018-06-01] MEDS: Artificial Tears Opth Oint 3.5 GM Tube EACH EYE SCH ×2 (08:20→20:31)
[2018-06-01] MEDS: amLODIPine 5 MG Tablet J-TUBE SCH (08:20)
[2018-06-01] MEDS: MethylPREDNISolone Sod Succinate Inj 40 MG/ML Vial IV.PUSH SCH (08:20)
[2018-06-01] MEDS: Senna/Docusate Sodium 8.6/50 MG Tablet PO SCH ×2 (08:20→20:31)
[2018-06-01] MEDS: Pantoprazole Inj 80 MG in Sodium Chlor 0.9% Inj 100 ML IV.CONT SCH ×2 (08:23→18:01)
--- NOTE | 2018-06-01 08:43 | P.PNCC ---
Subjective Subjective Remarks/Hospital Course: Hospital Course: 82yF with history of amyloidosis who presented with GI bleeding, hypotension, and severe anemia. originally admitted to the floor. hgb continued to downtrend despite transfusions. today taken for EGD which found blood in the stomach and clot, but no active bleeding. despite this, hgb still did not improve. taken for bleeding scan which was very +. discussed case with Dr. Garcia/Dr. Garland in IR. review of admission CT abd/pelvis demonstrates possible bleeding at duodenal bulb concerning for ulceration. Taken emergently to IR for embolization which appears to be successful. I evaluated the patient upon arrival to the ICU post-IR procedure. she is stable. complaining of hip pain. hgb has improved appropriately. she denies other complaints. she asked me not to look at her groin sites because "my hips hurt and I am tired." Recent evaluation by bedside RN is without hematoma, and this evaluation is deferred at patient's request (bedside RN to continue to monitor for signs of hematoma). remainder of ROS negative. Subjective: 05/20: doing well. complaining of moderate abdominal pain 5/10. receiving iv dilaudid currently. plan for EGD today. hgb dropped from 7.8 to 7.4, but slightly more tachycardic today, and I am worried about ongoing bleeding, although it does appear to be much slower clinically than yesterday. I discussed with GI DRAWER MAKER that per my conversation with IR, the lesion may be in the 4th portion of the duodenum near the ligament and it may require further investigation that usual EGD, and possibly push enteroscopy. She stated she would convey to the proceduralist. Dr. Shin suggests type II NSTEMI secondary to anemia and I agree completely with his assessment. Given that she is going soon for repeat EGD with anesthesia, will give 1 additional unit of prbc as she clearly has demonstrated she needs higher hematocrit for oxygen carrying capacity to her known ischemic CAD lesions. 05/21: s/p exploratory laparotomy last night. open abdomen. hgb stable. became acutely hypotensive with increased wound vac output one time today- emergently gave 1 unit prbc and 1 unit plt empirically given sudden change in condition. significant 3rd space losses requiring additional resuscitative efforts. remains deeply sedated. off vasopressors. remains intubated. 05/22: more hemodynamically stable today. hgb stable. still high wound-vac output with 300-500mL/12h. uop remains adequate at 70-80mL/hr, but Cr slightly elevated over baseline. unable to start diuresis yet and clinically although developing anasarca in the tissues, appears intravascularly euvolemic but not overloaded. likely will not tolerate diuresis efforts without significant kidney injury at this present juncture. needs bringback and washout in OR, but will leave timing of this to general surgery. 05/23: Received from operating room in good condition. Abdominal wound closed following gastrojejunostomy. Joseph-Vieira drain in region of the duodenal stump, gastric anastomosis. Nasogastric tube to not be moved, good position in stomach, keep to low intermittent suction. Downstream jejunostomy tube for initiation of trickle feeds. Renal function this morning excellent, follow closely. Chemical ventilation for the next couple of days as we observe tension on the abdominal wall. Meticulously avoid fluid overload. At present she is hypertensive and tachycardic for which we will restart propofol and use boluses of fentanyl as needed. Baseline fentanyl drip is infusing. 05/24: Remains warm and well-perfused overnight. Urine output acceptable at 35- 40 cc/h. Tolerated spontaneous breathing trial well this morning, we keep on vent for another 24-48 hours. Generalized edema persists. 05/25: Intubated sedated heavily. Urine output excellent with Lasix overall 3 L. Currently remains grossly fluid overloaded approximately 20 kg up from admission weight. We will start scheduled Lasix 20 every 8 hours with potassium replacement to facilitate ventilator weaning. 05/26: Sedated, orally intubated on mech vent. Being diuresed. Elevated BP on lightening sedation noted. 05/27: Sedated, orally intubated on mechanical ventilation. Being diuresed. Failed CPAP trial earlier. On Cleviprex for hypertension 05/28: Had episode of emesis last night. NGT remains to suction. Febrile overnight with rising WBCs noted. Sputum culture and UA ordered 05/27, getting blood cultures and starting empiric Abx coverage. Being diuresed. Cleviprex gtt being titrated down. 05/29: Arousable, intubated on mechanical ventilation. Follows commands by nodding, squeezes my fingers on command. Febrile yesterday for which she had cultures sent and was started on empiric antibiotic coverage. Blood cultures 3 out of 4 are growing gram-positive cocci. Her central line and PICC line were discontinued yesterday. 05/30: Sedated, arousable, intubated on mechanical ventilation. Follows commands by nodding and squeezing my fingers. CT chest with right hilar mass near right mainstem bronchus. CT abdomen pelvis with postop changes. Being diuresed to mobilize fluid. Daily CPAP trials. Blood cultures with gram- positive cocci. 05/31: Patient remains intubated off all sedation more awake today wakes up easily follows commands. Urine output adequate, sodium is 159. I have placed her on quarter normal saline and increase the free water flushes. Still receiving Lasix 06/01: Extubated yesterday breathing comfortably tolerating well, though lethargic. Serum sodium coming down now 155 with quarter normal saline. Urine output 1.5 L with IV Lasix Objective Vital Signs / I&O: Vital Signs 05/31/18 09:00 05/31/18 09:06 05/31/18 10:00 Temperature Pulse Rate 96 H 102 H 99 H Respiratory Rate Blood Pressure 141/63 H Pulse Oximetry 94 L 96 95 05/31/18 10:06 05/31/18 11:00 05/31/18 11:06 Temperature Pulse Rate 99 H 103 H 103 H Respiratory Rate Blood Pressure 113/54 L 125/59 L Pulse Oximetry 95 96 96 05/31/18 11:26 05/31/18 12:00 05/31/18 12:06 Temperature 98.8 F Pulse Rate 104 H 106 H Respiratory Rate 19 20 Blood Pressure 125/59 L 143/65 H Pulse Oximetry 97 97 98 05/31/18 13:00 05/31/18 13:06 05/31/18 14:00 Temperature Pulse Rate 97 H 96 H 97 H Respiratory Rate Blood Pressure 128/61 Pulse Oximetry 97 97 97 05/31/18 14:06 05/31/18 15:00 05/31/18 15:06 Temperature Pulse Rate 98 H 106 H 105 H Respiratory Rate 18 Blood Pressure 129/59 L 138/63 138/63 Pulse Oximetry 97 98 96 05/31/18 16:00 05/31/18 16:06 05/31/18 17:00 Temperature 99 F 97.8 F Pulse Rate 101 H 102 H 100 H Respiratory Rate 21 Blood Pressure 136/63 136/63 125/59 L Pulse Oximetry 98 97 99 05/31/18 17:06 05/31/18 18:00 05/31/18 19:00 Temperature Pulse Rate 91 H 99 H 106 H Respiratory Rate Blood Pressure 125/59 L 137/62 Pulse Oximetry 98 97 98 05/31/18 19:06 05/31/18 20:00 05/31/18 20:06 Temperature 97.8 F Pulse Rate 104 H 106 H 106 H Respiratory Rate 18 Blood Pressure 137/62 149/70 H 149/70 H Pulse Oximetry 97 97 97 05/31/18 20:59 05/31/18 21:00 05/31/18 21:06 Temperature Pulse Rate 103 H 103 H Respiratory Rate Blood Pressure 125/60 Pulse Oximetry 97 98 97 05/31/18 22:00 05/31/18 22:06 05/31/18 23:00 Temperature Pulse Rate 103 H 102 H 104 H Respiratory Rate Blood Pressure 135/62 Pulse Oximetry 95 94 L 94 L 05/31/18 23:06 06/01/18 00:00 06/01/18 00:06 Temperature 98.4 F Pulse Rate 104 H 101 H 105 H Respiratory Rate 16 Blood Pressure 137/61 141/63 H 141/63 H Pulse Oximetry 95 95 95 06/01/18 01:00 06/01/18 01:06 06/01/18 02:00 Temperature 98.5 F Pulse Rate 109 H 108 H 98 H Respiratory Rate 14 Blood Pressure 139/63 139/63 Pulse Oximetry 95 95 95 06/01/18 02:06 06/01/18 03:00 06/01/18 03:06 Temperature Pulse Rate 99 H 101 H 99 H Respiratory Rate Blood Pressure 124/58 L 123/58 L Pulse Oximetry 95 95 95 06/01/18 04:00 06/01/18 04:06 06/01/18 05:00 Temperature 98.5 F Pulse Rate 100 H 94 H 102 H Respiratory Rate 14 16 Blood Pressure 129/61 129/61 Pulse Oximetry 95 95 95 06/01/18 05:06 06/01/18 06:00 06/01/18 06:06 Temperature Pulse Rate 103 H 104 H 104 H Respiratory Rate Blood Pressure 129/62 133/63 Pulse Oximetry 95 96 96 06/01/18 07:00 06/01/18 07:06 06/01/18 08:00 Temperature 97.8 F Pulse Rate 103 H 103 H 104 H Respiratory Rate 16 18 Blood Pressure 144/63 H Pulse Oximetry 97 97 94 L 06/01/18 08:06 Temperature Pulse Rate 103 H Respiratory Rate Blood Pressure 140/63 Pulse Oximetry 94 L Intake & Output 05/31/18 06/01/18 06/01/18 18:59 06:59 18:59 Intake Total 1819 / 1819 2164 / 2164 100 / 100 Output Total 1350 / 1350 2150 / 2150 Balance 469 / 469 14 / 14 100 / 100 Weight 77.2 kg Intake: IV 755 / 755 1200 / 1200 100 / 100 Protonix Inj 80 MG In NS Inj 100 / 100 100 / 100 100 / 100 100 ML @ 10 mls/hr IV.CONT Q10H [facility] Rx#:[id number] Diprivan 1000 mg/100 ml Inj 1, 80 / 80 000 mg In 100 ml @ 5 MCG/KG/MIN 2.922 mls/hr IV.CONT TITRATE PRN Rx#:[id number] Sodium Chloride 23.4% Inj 38.5 1000 / 1000 MEQ In Sterile Water for Inj 1, 000 ML @ 84 mls/hr IV.CONT . Q12H2M [facility] Rx#:[id number] Azactam Inj 2 GM In NS Inj 100 200 / 200 100 / 100 ML @ 200 mls/hr IV.SIG Q8H [facility] Rx#:[id number] Vancomycin Inj 1,000 MG In NS 250 / 250 Inj 250 ML @ 250 mls/hr IV.SIG Q24H [facility] Rx#:[id number] fentaNYL 10 mcg/mL Premix Drip 125 / 125 2,500 mcg In 250 ml @ 50 MCG/HR 5 mls/hr IV.SIG TITRATE PRN Rx #:[id number] Tube Feeding 544 / 544 564 / 564 Tube Irrigant 120 / 120 Water Bolus Amount 400 / 400 400 / 400 Output: Stool 600 / 600 Urine Amount (Catheter) 1550 / 1550 Indwelling Urethral Catheter 1550 / 1550 Gastric Drainage 750 / 750 600 / 600 Right Nare Nasogastric Tube 750 / 750 600 / 600 Other: Date of Last Bowel Movement 05/31/18 06/01/18 Result Diagrams: 06/01/18 04:03 06/01/18 04:03 Objective Remarks: GENERAL: Lying in bed breathing comfortably on nasal cannula. Appears weak HEENT: Normocephalic. Atraumatic. CHEST: Clear breath sounds bilaterally, equal chest rise. Air entry diminished at the bases. CARDIOVASCULAR: Normal S1-S2. Regular normal rate, regular rhythm. No JVD. ABDOMEN: Fascia closed, postsurgical wound intact, abdominal binder in place. Soft, nondistended. Few bowel sounds heard. Mild tenderness on palpation MUSCULOSKELETAL: Bilateral foot pulses 2+. bilateral foot and ankle edema. Warm and well-perfused fingers and toes. NEUROLOGICAL: Patient is alert awake appears weak but follows commands x4 appears comfortable no focal deficits Assessment and Plan - Assessment and Plan Plan: Assessment: 82yF with amyloidosis and active GI bleed. s/p emergent IA embolization 05/19. s/p EGD 05/19 and again 05/20 with ischemia present. s/p emergent exploratory laparotomy with duodenal and jejunal resection, initially left in discontinuity with open abdomen, and now reconstructed with abdominal wall closure. Remains critically ill. Scheduled Lasix for aggressive diuresis. Quarter normal saline started for hypernatremia Upper GI bleed Acute hypoxic and hypercarbic respiratory failure-resolved s/p emergent exploratory laparotomy with duodenal and jejunal resection, initially left in discontinuity with open abdomen 05/20 Now reconstructed with abdominal wall closure. Severe acute anemia secondary to blood loss requiring transfusion- persistent duodenal ulcer Type II NSTEMI secondary to demand ischemia from severe anemia s/p EGD 05/19, 05/20 s/p emergent IR embolization 05/19 severe acute thrombocytopenia - ITP acute protein calorie malnutrition- moderate to severe Fluid overload sepsis Pneumonia Staph aureus bacteremia Right hilar mass H/o Right lower lobectomy, and adenoca lung Plan: - Extubated 05/31/2018 tolerating well - Continue IV Lasix 20 mg every 12 hours with potassium replacement - Quarter normal saline 125 ml per hour started for hypernatremia - Abx with azactam, zyvox, flagyl via G tube. ID following. micafungin added by ID on 05/28. - Blood cultures from 05/28 growing MSSA. Sputum culture Citrobacter and staph aureus - Pulmonary consult requested for right hilar mass on CT chest done on 05/29. Per Dr. Pack's note daughter Nohemy Davis wants to hold off bronchoscopy. Once extubated patient can make a decision - Labetalol prn, Cardene gtt to keep SBP less than 160mm Hg, Norvasc 5mg via J tube daily started 05/26 - Serial hemoglobin, transfuse to keep hgb > 7 - serially check platelets, transfuse to keep plt > 50k. Tapering solumedrol, decreased to 30mg daily - tube feeds per general surgery, through jejunostomy. NGT to suction. - Strict intake output, monitor and replete elect lites, follow BUN and creatinine. - ICU electrolyte replacement protocol - SCDs. Start subcu heparin when cleared by general surgery/ Heme-onc. Platelet count 88 today 05/28: Discussed with ID, discussed with Dr. James, discussed with patient's daughter at bedside. 05/29: Discussed with ID Dr. Dhillon, discussed with patient's daughter Raciel Conley and updated her regarding current clinical status including plan of care and she voiced understanding and was agreeable. 06/01. D/W and updated daughter Raciel Conley today Overall impression: This patient remains critically ill with fluctuating renal function, fluid overload and compromised respiratory reserve due to recent resuscitation volume and generalized edema, complicated by sepsis. Slowly improving extubated but overall weak. Level 3 Code Status: Full
--- NOTE | 2018-06-01 11:18 | P.PNONC ---
Subjective Interval history: Patient sitting up in chair, alert. Requesting mouth sponge for water. Also requesting coffee, RN states she has to discuss further with GI/surgeons. She was extubated yesterday. Remains with NG tube in place, yellow fluid draining. Per RN rectal bag draining brown stool, no signs of bleeding. Objective Vital Signs/Intake & Output: Vital Signs 05/31/18 11:26 05/31/18 12:00 05/31/18 12:06 Temperature 98.8 F Pulse Rate 104 H 106 H Respiratory Rate 19 20 Blood Pressure 125/59 L 143/65 H Pulse Oximetry 97 97 98 05/31/18 13:00 05/31/18 13:06 05/31/18 14:00 Temperature Pulse Rate 97 H 96 H 97 H Respiratory Rate Blood Pressure 128/61 Pulse Oximetry 97 97 97 05/31/18 14:06 05/31/18 15:00 05/31/18 15:06 Temperature Pulse Rate 98 H 106 H 105 H Respiratory Rate 18 Blood Pressure 129/59 L 138/63 138/63 Pulse Oximetry 97 98 96 05/31/18 16:00 05/31/18 16:06 05/31/18 17:00 Temperature 99 F 97.8 F Pulse Rate 101 H 102 H 100 H Respiratory Rate 21 Blood Pressure 136/63 136/63 125/59 L Pulse Oximetry 98 97 99 05/31/18 17:06 05/31/18 18:00 05/31/18 19:00 Temperature Pulse Rate 91 H 99 H 106 H Respiratory Rate Blood Pressure 125/59 L 137/62 Pulse Oximetry 98 97 98 05/31/18 19:06 05/31/18 20:00 05/31/18 20:06 Temperature 97.8 F Pulse Rate 104 H 106 H 106 H Respiratory Rate 18 Blood Pressure 137/62 149/70 H 149/70 H Pulse Oximetry 97 97 97 05/31/18 20:59 05/31/18 21:00 05/31/18 21:06 Temperature Pulse Rate 103 H 103 H Respiratory Rate Blood Pressure 125/60 Pulse Oximetry 97 98 97 05/31/18 22:00 05/31/18 22:06 05/31/18 23:00 Temperature Pulse Rate 103 H 102 H 104 H Respiratory Rate Blood Pressure 135/62 Pulse Oximetry 95 94 L 94 L 05/31/18 23:06 06/01/18 00:00 06/01/18 00:06 Temperature 98.4 F Pulse Rate 104 H 101 H 105 H Respiratory Rate 16 Blood Pressure 137/61 141/63 H 141/63 H Pulse Oximetry 95 95 95 06/01/18 01:00 06/01/18 01:06 06/01/18 02:00 Temperature 98.5 F Pulse Rate 109 H 108 H 98 H Respiratory Rate 14 Blood Pressure 139/63 139/63 Pulse Oximetry 95 95 95 06/01/18 02:06 06/01/18 03:00 06/01/18 03:06 Temperature Pulse Rate 99 H 101 H 99 H Respiratory Rate Blood Pressure 124/58 L 123/58 L Pulse Oximetry 95 95 95 06/01/18 04:00 06/01/18 04:06 06/01/18 05:00 Temperature 98.5 F Pulse Rate 100 H 94 H 102 H Respiratory Rate 14 16 Blood Pressure 129/61 129/61 Pulse Oximetry 95 95 95 06/01/18 05:06 06/01/18 06:00 06/01/18 06:06 Temperature Pulse Rate 103 H 104 H 104 H Respiratory Rate Blood Pressure 129/62 133/63 Pulse Oximetry 95 96 96 06/01/18 07:00 06/01/18 07:06 06/01/18 08:00 Temperature 97.8 F Pulse Rate 103 H 103 H 104 H Respiratory Rate 16 18 Blood Pressure 144/63 H Pulse Oximetry 97 97 94 L 06/01/18 08:06 06/01/18 08:29 06/01/18 09:00 Temperature Pulse Rate 103 H 106 H Respiratory Rate 18 Blood Pressure 140/63 148/67 H Pulse Oximetry 94 L 97 94 L 06/01/18 10:00 Temperature Pulse Rate 108 H Respiratory Rate 20 Blood Pressure 124/60 Pulse Oximetry 94 L Intake & Output 05/31/18 06/01/18 06/01/18 18:59 06:59 18:59 Intake Total 1819 / 1819 2164 / 2164 100 / 100 Output Total 1350 / 1350 2150 / 2150 Balance 469 / 469 14 / 14 100 / 100 Weight 77.2 kg Intake: IV 755 / 755 1200 / 1200 100 / 100 Protonix Inj 80 MG In NS Inj 100 / 100 100 / 100 100 / 100 100 ML @ 10 mls/hr IV.CONT Q10H [facility] Rx#:[id number] Diprivan 1000 mg/100 ml Inj 1, 80 / 80 000 mg In 100 ml @ 5 MCG/KG/MIN 2.922 mls/hr IV.CONT TITRATE PRN Rx#:[id number] Sodium Chloride 23.4% Inj 38.5 1000 / 1000 MEQ In Sterile Water for Inj 1, 000 ML @ 84 mls/hr IV.CONT . Q12H2M [facility] Rx#:[id number] Azactam Inj 2 GM In NS Inj 100 200 / 200 100 / 100 ML @ 200 mls/hr IV.SIG Q8H [facility] Rx#:[id number] Vancomycin Inj 1,000 MG In NS 250 / 250 Inj 250 ML @ 250 mls/hr IV.SIG Q24H [facility] Rx#:[id number] fentaNYL 10 mcg/mL Premix Drip 125 / 125 2,500 mcg In 250 ml @ 50 MCG/HR 5 mls/hr IV.SIG TITRATE PRN Rx #:[id number] Tube Feeding 544 / 544 564 / 564 Tube Irrigant 120 / 120 Water Bolus Amount 400 / 400 400 / 400 Output: Stool 600 / 600 Urine Amount (Catheter) 1550 / 1550 Indwelling Urethral Catheter 1550 / 1550 Gastric Drainage 750 / 750 600 / 600 Right Nare Nasogastric Tube 750 / 750 600 / 600 Other: Date of Last Bowel Movement 05/31/18 06/01/18 Result Diagrams: 06/01/18 04:03 06/01/18 04:03 Laboratory Results: Laboratory Results - last 24 hr 05/31/18 05/31/18 06/01/18 03:57 14:29 04:03 WBC RBC Hgb Hct MCV MCH MCHC RDW Plt Count MPV Prelim Diff (Auto) Neut % (Auto) Lymph % (Auto) [place] % (Auto) Eos % (Auto) Baso % (Auto) Neut # (Auto) Lymph # (Auto) [place] # (Auto) Eos # (Auto) Baso # (Auto) WBC Differential . Diff Scan Auto diff confirmed Differential Comment Platelet Estimate Low L Platelet Morphology Normal Puncture Site Right radial Patient Temperature 98.6 O2 Saturation 95 ABG pH 7.41 ABG pCO2 36 L ABG pO2 103 ABG HCO3 23 ABG O2 Content 12.9 ABG Base Excess -1.2 ABG Methemoglobin 0.8 [place] Test Present Hemoglobin 9.5 L Carboxyhemoglobin 0.4 O2 Delivery Device Ventilator Vent Setting Cpap/psv8/+5/30% Inspired O2 30 Critical Value No Sodium 155 H Potassium 3.5 Chloride 124 H Carbon Dioxide 23.1 Anion Gap 8 BUN 59 H Creatinine 1.00 Estimated GFR 53 L Random Glucose 108 H Calcium 8.2 L Total Bilirubin 0.5 AST 25 ALT 56 H Alkaline Phosphatase 74 Total Protein 5.6 L Albumin 2.5 L 06/01/18 04:03 WBC 13.8 H RBC 3.19 L Hgb 9.3 L Hct 29.1 L MCV 91.2 MCH 29.0 MCHC 31.9 L RDW 15.5 Plt Count 88 L MPV 9.9 Prelim Diff (Auto) Slide review pending Neut % (Auto) 92.4 H Lymph % (Auto) 3.8 L [place] % (Auto) 2.6 Eos % (Auto) 1.0 Baso % (Auto) 0.2 Neut # (Auto) 12.7 H Lymph # (Auto) 0.5 L [place] # (Auto) 0.4 Eos # (Auto) 0.1 Baso # (Auto) 0.0 WBC Differential . Diff Scan Auto diff confirmed Differential Comment . Platelet Estimate Platelet Morphology Puncture Site Patient Temperature O2 Saturation ABG pH ABG pCO2 ABG pO2 ABG HCO3 ABG O2 Content ABG Base Excess ABG Methemoglobin [place] Test Hemoglobin Carboxyhemoglobin O2 Delivery Device Vent Setting Inspired O2 Critical Value Sodium Potassium Chloride Carbon Dioxide Anion Gap BUN Creatinine Estimated GFR Random Glucose Calcium Total Bilirubin AST ALT Alkaline Phosphatase Total Protein Albumin Culture Results: Microbiology 05/28/18 10:33 Aerobic Blood Culture - Final Blood - Peripheral Staphylococcus aureus Anaerobic Blood Culture - Final Staphylococcus aureus 05/28/18 10:27 Aerobic Blood Culture - Final Blood - Peripheral Staphylococcus aureus Anaerobic Blood Culture - Final Staphylococcus aureus 05/27/18 09:13 Urine Culture - Final Catheterized Urine No growth in 48 hours 05/27/18 09:13 Gram Stain - Final Sputum - Endotracheal Sputum Culture - Final Citrobacter species Staphylococcus aureus Imaging Studies: Impressions Chest X-Ray 06/01/18 06:00 CONCLUSION: 1. New mild bilateral lower lung zone opacity likely representing atelectasis. 2. Endotracheal tube no longer seen. Medications: Active Medications Generic Name Dose Route Start Last Admin Trade Name Freq PRN Reason Stop Dose Admin Acetaminophen 650 mg 05/17/18 06:10 05/28/18 16:28 Tylenol PO 650 mg Q4H PRN Administration Temp > 100.4 Albuterol 2.5 mg 05/21/18 23:28 05/28/18 08:20 Albuterol Neb (Prn) NEB 2.5 mg Q2HR NEB PRN Administration WHEEZING Amlodipine Besylate 5 mg 05/26/18 10:00 06/01/18 08:20 Norvasc J-TUBE 5 mg DAILY [facility] Administration Artificial Tears 1 applicatio 05/22/18 21:00 06/01/18 08:20 Lacrilube Opth Oint EACH EYE 1 applicatio BID [facility] Administration Clonidine HCl 0.1 mg 05/26/18 11:24 05/26/18 23:31 Catapres PO 0.1 mg Q6H PRN Administration SBP>160, DBP>90 Furosemide 20 mg 05/28/18 21:00 06/01/18 08:20 Lasix Inj IV.PUSH 20 mg Q12H [facility] Administration Heparin Sodium (Porcine) 0 unit 05/21/18 09:00 06/01/18 08:19 Heparin Central Flush IV.FLUSH Not Given DAILY [facility] Hydralazine HCl 10 mg 05/23/18 00:24 05/28/18 16:12 Apresoline Inj IV.PUSH 10 mg Q1H PRN Administration Sbp>165, Dbp>90 Pantoprazole Sodium 80 mg/ 100 mls @ 10 mls/hr 05/17/18 09:00 06/01/18 08:23 Sodium Chloride IV.CONT 10 mls/hr Q10H [facility] Administration Sodium Chloride 500 mls @ 30 mls/hr 05/18/18 07:00 05/18/18 07:00 Ns Inj IV.SIG Not Given .Q10H [facility] Magnesium Sulfate 2 gm/ Sodium 100 mls @ 50 mls/hr 05/22/18 22:43 05/30/18 08 :00 Chloride IV.SIG Infused UNSCH PRN Infusion For Magnesium 1.2 - 1.6 mg/dL Potassium Chloride 40 meq in 100 mls @ 25 mls/hr 05/22/18 22:43 05/30/18 08: 00 Kcl 40 Meq Premix Inj IV.SIG Infused Q2H PRN Infusion For Potassium 2.8 - 3.2 mEq/L Potassium Chloride 20 meq in 100 mls @ 50 mls/hr 05/22/18 22:43 05/30/18 18: 32 Kcl 20 Meq Premix Inj IV.SIG Infused Q2H PRN Infusion For Potassium 3.3 - 3.5 mEq/L Potassium Chloride 40 meq in 100 mls @ 25 mls/hr 05/22/18 22:43 05/30/18 08: 00 Kcl 40 Meq Premix Inj IV.SIG Infused UNSCH PRN Infusion For Potassium 3.3 - 3.5 mEq/L Potassium Phosphate 30 mmol/ 260 mls @ 42 mls/hr 05/22/18 22:43 05/23/18 12: 57 Sodium Chloride IV.SIG Infused UNSCH PRN Infusion SEE LABEL COMMENTS Aztreonam 2 gm/ Sodium 100 mls @ 200 mls/hr 05/28/18 10:00 06/01/18 10:02 Chloride IV.SIG 200 mls/hr Q8H [facility] Administration Vancomycin HCl 1,000 mg/ 250 mls @ 250 mls/hr 05/29/18 12:00 05/31/18 13:14 Sodium Chloride IV.SIG Infused Q24H [facility] Infusion Sodium Chloride 38.5 meq/ 1,009.625 mls @ 125 mls/hr 05/31/18 15:00 06/01/18 03:36 Sterile Water IV.CONT 84 mls/hr .Q8H5M [facility] Administration Labetalol HCl 20 mg 05/26/18 07:44 05/27/18 03:30 Trandate Inj IV.PUSH 20 mg Q2H PRN Administration KEEP SBP<160 Lidocaine HCl 2 patch 05/19/18 09:30 06/01/18 08:20 Lidoderm 5% Patch.12 Hr T-DERMAL 2 patch DAILY [facility] Administration Methylprednisolone Sodium Succinate 30 mg 05/30/18 09:00 06/01/18 08:20 Solumedrol Inj IV.PUSH 30 mg Q24H [facility] Administration Ondansetron HCl 4 mg 05/17/18 06:10 05/28/18 05:13 Zofran Inj IV.PUSH 4 mg Q6H PRN Administration NAUSEA OR VOMITING Patch Removal 1 each 05/19/18 21:00 06/01/18 08:22 Remove Old Patch T-DERMAL 1 each BID [facility] Administration Potassium Bicarb/Potassium Chloride 25 meq 05/26/18 21:00 06/01/18 08:19 K-Lyte Cl Eff NG/OG 25 meq BID [facility] Administration Prochlorperazine Edisylate 10 mg 05/17/18 09:06 05/19/18 00:08 Compazine Inj IV.PUSH 10 mg Q6H PRN Administration NAUSEA Senna/Docusate Sodium 1 tab 05/17/18 09:00 06/01/18 08:20 Jessie-Colace PO 1 tab BID [facility] Administration Sodium Chloride 0 ml 05/21/18 09:00 06/01/18 08:21 Ns Flush IV.FLUSH 2 ml DAILY [facility] Administration Sodium Chloride 0 ml 05/20/18 16:43 05/26/18 01:39 Ns Flush IV.FLUSH 2 ml PRN PRN Administration FLUSH AFTER USING IV ACCESS Objective Remarks: GENERAL: Ill-appearing female patient, in no acute distress. SKIN: Warm and dry. HEAD: Normocephalic. EYES: No scleral icterus. No injection or drainage. NECK: Supple, trachea midline. CARDIOVASCULAR: Regular rate and rhythm without murmurs. RESPIRATORY: Breath sounds equal bilaterally. No accessory muscle use. GASTROINTESTINAL: Abdomen with abdominal binder. NG tube draining yellow fluid. EXTREMITIES: No cyanosis, or edema. SCDs in place. MUSCULOSKELETAL: Generalized weakness. NEUROLOGICAL: No obvious focal deficit. Awake, alert. Moving all extremities. PSYCHIATRIC: Appropriate mood and affect; insight and judgment normal. Assessment/Plan - Plan Ms. Perea is a pleasant 82-year-old lady with a history of lung cancer, multifocal amyloidosis, lymphomoplasmacytic disorder and now gastrointestinal bleeding. Plan: 1. Thrombocytopenia, solu-medrol currently being tapered, currently on 30mg. Platelets decreased to 88k. Once renal function improves will try IVIG. 2. Blood cultures positive for staph, continues on abx per ID. 3. Continue to monitor for bleeding. 4. Repeat CBC in the a.m.
[2018-06-01 11:34] LABS: Alanine Aminotransferase 61 U/L (10-53); Albumin 2.6 g/dL (3.4-5.0); Anion Gap 9 meq/L (5-15); Aspartate Aminotransferase 30 U/L (15-37); Blood Urea Nitrogen 55 mg/dL (7-18); Calcium 7.9 mg/dL (8.5-10.1); Carbon Dioxide 21.1 meq/L (21.0-32.0); Chloride 123 meq/L (98-107); Glomerular Filtration Rate 56 mL/min (>89); Glucose,Random 139 mg/dL (74-106); Magnesium 2.4 mg/dL (1.5-2.5); Potassium 3.5 meq/L (3.5-5.1); Sodium 153 meq/L (136-145)
[2018-06-01] MEDS: Vancomycin Inj 1,000 MG in Sodium Chlor 0.9% Inj 250 ML IV.SIG SCH (11:34)
[2018-06-01 11:36] LABS: Alkaline Phosphatase 85 U/L (45-117); Total Protein 6.1 g/dL (6.4-8.2); Vancomycin,Trough 8.7 mcg/mL (5.0-10.0)
--- NOTE | 2018-06-01 11:39 | P.DIET ---
Nutritional Evaluation Type of nutrition evaluation: follow-up Nutrition consult regarding: Tube Feeding Objective - Diagnosis GI Bleed - Objective % IBW: 136 (IBW = 125#) Body Weight Used for Calculations: IBW (56.8kg) Energy Needs - Lower Range (kCal/kg): 25 Energy Needs - Upper Range (kCal/kg): 30 Lower Limit kCal/kg (kCals): 1,420 Upper Limit kCal/kg (kCals): 1,704 Lower Limit Protein Factor (Grams per Kg): 1.2 Upper Limit Protein Factor (Grams per Kg): 1.6 Lower Protein Needs (Protein): 68 Upper Protein Needs (Protein): 91 Dietitian Reviewed in Medical Record: Current diet, Curent medications, Intake & Output, Labs, Medical history, Tube feeding Diet Order: NPO Objective Comments: Current clinical course per MD: amyloidosis and active GI bleed. s/p emergent IA embolization 05/19. s/p EGD 05/19 and again 05/20 with ischemia present. s/p emergent exploratory laparotomy with duodenal and jejunal resection, initially left in discontinuity with open abdomen, and now reconstructed with abdominal wall closure. 05/23 GJ tube placement Assessment Assessment: Pt at high nutritional risk r/t the need for a TF. Pt extubated (05/31) and ng-t is to [facility]WS. Pt is currently receiving Vital High Protein @ 50 mls/hr which provides 1200 kcals, 105 gms protein and 1003 mls of free water. To better meet needs, recommend Vital 1.5 @ 50 mls/hr to provide 1800 kcals, 81 gms protein and 917 mls of free water. Labs, wts and clinical course reviewed. Recommendations: Vital 1.5 @ 50 mls/hr goal Dietitian to Monitor: Lab values, Intake & Output, Tube feeding tolerance, Weight change, Medical course
[2018-06-01] MEDS ORDERED: Pharmacy Ordered Lab Info OTHER ONE (11:45)
--- NOTE | 2018-06-01 14:46 | P.PNGS ---
Subjective Patient reports: feels better (Extubated. Awake and alert. Responds appropriately. Appears comfortable.) Physical Exam Vital signs: Vital Signs 05/31/18 15:00 05/31/18 15:06 05/31/18 16:00 Temperature 99 F Pulse Rate 106 H 105 H 101 H Respiratory Rate 18 21 Blood Pressure 138/63 138/63 136/63 Pulse Oximetry 98 96 98 05/31/18 16:06 05/31/18 17:00 05/31/18 17:06 Temperature 97.8 F Pulse Rate 102 H 100 H 91 H Respiratory Rate Blood Pressure 136/63 125/59 L 125/59 L Pulse Oximetry 97 99 98 05/31/18 18:00 05/31/18 19:00 05/31/18 19:06 Temperature Pulse Rate 99 H 106 H 104 H Respiratory Rate Blood Pressure 137/62 137/62 Pulse Oximetry 97 98 97 05/31/18 20:00 05/31/18 20:06 05/31/18 20:59 Temperature 97.8 F Pulse Rate 106 H 106 H Respiratory Rate 18 Blood Pressure 149/70 H 149/70 H Pulse Oximetry 97 97 97 05/31/18 21:00 05/31/18 21:06 05/31/18 22:00 Temperature Pulse Rate 103 H 103 H 103 H Respiratory Rate Blood Pressure 125/60 Pulse Oximetry 98 97 95 05/31/18 22:06 05/31/18 23:00 05/31/18 23:06 Temperature Pulse Rate 102 H 104 H 104 H Respiratory Rate Blood Pressure 135/62 137/61 Pulse Oximetry 94 L 94 L 95 06/01/18 00:00 06/01/18 00:06 06/01/18 01:00 Temperature 98.4 F 98.5 F Pulse Rate 101 H 105 H 109 H Respiratory Rate 16 14 Blood Pressure 141/63 H 141/63 H 139/63 Pulse Oximetry 95 95 95 06/01/18 01:06 06/01/18 02:00 06/01/18 02:06 Temperature Pulse Rate 108 H 98 H 99 H Respiratory Rate Blood Pressure 139/63 124/58 L Pulse Oximetry 95 95 95 06/01/18 03:00 06/01/18 03:06 06/01/18 04:00 Temperature 98.5 F Pulse Rate 101 H 99 H 100 H Respiratory Rate 14 Blood Pressure 123/58 L 129/61 Pulse Oximetry 95 95 95 06/01/18 04:06 06/01/18 05:00 06/01/18 05:06 Temperature Pulse Rate 94 H 102 H 103 H Respiratory Rate 16 Blood Pressure 129/61 129/62 Pulse Oximetry 95 95 95 06/01/18 06:00 06/01/18 06:06 06/01/18 07:00 Temperature Pulse Rate 104 H 104 H 103 H Respiratory Rate 16 Blood Pressure 133/63 Pulse Oximetry 96 96 97 06/01/18 07:06 06/01/18 08:00 06/01/18 08:06 Temperature 97.8 F Pulse Rate 103 H 104 H 103 H Respiratory Rate 18 Blood Pressure 144/63 H 140/63 Pulse Oximetry 97 94 L 94 L 06/01/18 08:29 06/01/18 09:00 06/01/18 10:00 Temperature Pulse Rate 106 H 108 H Respiratory Rate 18 20 Blood Pressure 148/67 H 124/60 Pulse Oximetry 97 94 L 94 L 06/01/18 11:00 06/01/18 12:00 06/01/18 13:00 Temperature 97.6 F Pulse Rate 112 H 107 H 106 H Respiratory Rate 20 20 18 Blood Pressure 130/59 L 141/63 H 140/63 Pulse Oximetry 97 96 95 06/01/18 14:00 Temperature Pulse Rate 110 H Respiratory Rate Blood Pressure Pulse Oximetry Intake & Output 05/31/18 06/01/18 06/01/18 18:59 06:59 18:59 Intake Total 1819 / 1819 2164 / 2164 450 / 450 Output Total 1350 / 1350 2150 / 2150 Balance 469 / 469 14 450 / 450 Weight 77.2 kg Intake: IV 755 / 755 1200 / 1200 450 / 450 Protonix Inj 80 MG In NS Inj 100 / 100 100 / 100 100 / 100 100 ML @ 10 mls/hr IV.CONT Q10H [facility] Rx#:[id number] Diprivan 1000 mg/100 ml Inj 1, 80 / 80 000 mg In 100 ml @ 5 MCG/KG/MIN 2.922 mls/hr IV.CONT TITRATE PRN Rx#:[id number] Sodium Chloride 23.4% Inj 38.5 1000 / 1000 MEQ In Sterile Water for Inj 1, 000 ML @ 84 mls/hr IV.CONT . Q12H2M [facility] Rx#:[id number] Azactam Inj 2 GM In NS Inj 100 200 / 200 100 / 100 100 / 100 ML @ 200 mls/hr IV.SIG Q8H [facility] Rx#:[id number] Vancomycin Inj 1,000 MG In NS 250 / 250 250 / 250 Inj 250 ML @ 250 mls/hr IV.SIG Q24H [facility] Rx#:[id number] fentaNYL 10 mcg/mL Premix Drip 125 / 125 2,500 mcg In 250 ml @ 50 MCG/HR 5 mls/hr IV.SIG TITRATE PRN Rx #:[id number] Tube Feeding 544 / 544 564 / 564 Tube Irrigant 120 / 120 Water Bolus Amount 400 / 400 400 / 400 Output: Stool 600 / 600 Urine Amount (Catheter) 1550 / 1550 Indwelling Urethral Catheter 1550 / 1550 Gastric Drainage 750 / 750 600 / 600 Right Nare Nasogastric Tube 750 / 750 600 / 600 Other: Date of Last Bowel Movement 05/31/18 06/01/18 Narrative: 06/01/2018 Abdominal exam performed. Feeding tube site looks fine. New dressing applied. Shama dressing applied on Friday removed over the weekend, not sure why. New dry island dressing replaced. Moderate amount of bloody drainage inferiorly. Try to express or decompress any fluid collection and I could not. A new dry dressing was applied. Old drain site dry with minimal drainage, new dry dressing applied. Abdomen soft and nontender. Nasogastric tube continues to drain some bilious drainage. Amount not significant. Bilateral biostatistics director strength weak. - Urinary Catheter Management Indwelling Urethral Catheter Cath placed during this visit: yes Reason for continuing: Hourly intake/output Insertion date: 05/20/18 Insertion time: 19:55 Results - Labs 06/01/18 04:03 06/01/18 10:48 Laboratory Results - last 24 hr 06/01/18 06/01/18 06/01/18 04:03 04:03 10:48 WBC 13.8 H RBC 3.19 L Hgb 9.3 L Hct 29.1 L MCV 91.2 MCH 29.0 MCHC 31.9 L RDW 15.5 Plt Count 88 L MPV 9.9 Prelim Diff (Auto) Slide review pending Neut % (Auto) 92.4 H Lymph % (Auto) 3.8 L [place] % (Auto) 2.6 Eos % (Auto) 1.0 Baso % (Auto) 0.2 Neut # (Auto) 12.7 H Lymph # (Auto) 0.5 L [place] # (Auto) 0.4 Eos # (Auto) 0.1 Baso # (Auto) 0.0 WBC Differential . Diff Scan Auto diff confirmed Differential Comment . Sodium 155 H 153 H Potassium 3.5 3.5 Chloride 124 H 123 H Carbon Dioxide 23.1 21.1 Anion Gap 8 9 BUN 59 H 55 H Creatinine 1.00 0.95 Estimated GFR 53 L 56 L Random Glucose 108 H 139 H Calcium 8.2 L 7.9 L Magnesium 2.4 Total Bilirubin 0.5 0.6 AST 25 30 ALT 56 H 61 H Alkaline Phosphatase 74 85 Total Protein 5.6 L 6.1 L Albumin 2.5 L 2.6 L Vancomycin Trough 8.7 - Imaging Imaging: ITS Impressions GI Bleed Scan Nuclear Medicine 05/19/18 00:00 CONCLUSION: 1. 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 Patient was emergently brought to the interventional radiology department from the nuclear medicine department for angiography and intervention. Mesenteric Arteriogram 05/19/18 14:37 CONCLUSION: 1. 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 2. 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 PICC Line Insertion 05/20/18 00:00 CONCLUSION: 1. Uncomplicated central venous Power PICC line placement. 2. The PICC line can be used immediately. Abdomen X-Ray 05/28/18 05:23 CONCLUSION: No dilated bowel loops. Abdomen/Pelvis CT 05/29/18 00:00 CONCLUSION: 1. Since the prior CT, midline laparotomy with gastrojejunostomy has been performed. Anastomosis appears patent. There is a nasogastric tube which extends beyond the site of surgery and is in the first portion of the duodenum. Unchanged metallic structure near the ligament of Treitz, etiology uncertain. 2. A jejunostomy tube has also been placed without evidence of an acute complication. 3. Small, nonspecific free fluid in the pelvic cavity. No evidence of abscess. 4. No acute solid organ abnormality. Cysts of both kidneys and nonobstructing stones of the left kidney are again noted. 5. Sigmoid colon diverticulosis without diverticulitis. Chest CT 05/29/18 11:52 CONCLUSION: 1. 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 2. Pneumonia with volume loss in the right lower lobe. 3. Coronary artery calcification. 4. Emphysema. Chest X-Ray 06/01/18 06:00 CONCLUSION: 1. New mild bilateral lower lung zone opacity likely representing atelectasis. 2. Endotracheal tube no longer seen. Assessment and Plan - Assessment (1) GI bleed Code(s): K92.2 - Gastrointestinal hemorrhage, unspecified Status: Acute Plan: 82 year old female POD4 exploratory laparotomy, gastrojejunostomy, closure, j tube -Tolerating TF at goal of 50 cc/hr -off vent -NG output high -PT/rehab - Plan I personally evaluated the patient in room 1309. She remains ventilated and somewhat sedated. I did ask her to squeeze my fingers and I believe she did so and responded appropriately squeezing my fingers with her left hand. Her eyes were partially opened and she moved her head around but could not get her to wiggle her toes in response to verbal request. Her nasogastric tube has primarily bilious fluid. Her breath sounds were clear and equal anteriorly bilaterally. Her abdomen remains somewhat distended yet soft. The shama dressing is intact with tiny spot of dried drainage on it. J-tube exit site is clean she is tolerating tube feeds now at 50 an hour. She does have a large amount of liquid dark brown stool in the Flexi-Seal bag. Her DAKOTA drain is draining yellow serous drainage with occasional clot in it. Her extreme extremities remain mildly edematous. Her hemoglobin was 9.3 today. Her platelet count was 117. I do not believe she is demonstrating signs of any active bleeding at this time. 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 Slow ventilator weaning as the patient failed a CPAP trial yesterday. Continue diuresis. Continue to support low potassium. Plan shama dressing change on Friday. Continue current support. I discussed in detail the patient's status yesterday afternoon with the patient's daughter, Raciel Conley, by telephone. 05/28/2018 I personally evaluated the patient in room 1309. She remains ventilated. She does move her head about. 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 She has been vomiting around her nasogastric tube which is disconcerting as I cannot explain why a normally functioning G-tube would not prevent vomiting around it. Plain x-ray of the chest was evaluated I see no evidence of pneumonia abdominal x-ray shows no gastric distention and a normal bowel gas pattern no signs of obstruction. I would prefer that her feeding jejunostomy be used only for tube feeding and flushes and not for medications as this only potentially leads to occlusion of the feeding jejunostomy. This is her only access for enteral nutrition. Antibiotic therapy should be directed towards the results from cultures. A contrast study through her nasogastric tube could be performed to ensure patency of the tube as well as her new gastrojejunostomy. I discussed her case with her daughter Raciel Conley. While I see no evidence of postsurgical complication, and 82 years old with multiple autoimmune issues recovery from her GI bleed and surgical interventions can take longer than we would wish. Continue current supportive therapy. 05/29/2018 Postop duodenal resection including diverticulum and proximal jejunum which was ischemic. Postop gastrojejunostomy feeding jejunostomy and closure of abdominal wall. Now with sputum and blood cultures positive for Citrobacter and gram-positive cocci. Vancomycin and IV antibiotics started by infectious disease. Plan restart tube feeds. Do not start stop tube feeds for emesis or increase nasogastric drainage as the feeding jejunostomy is 40 cm distal to the gastrojejunostomy. Patient's bowel and bladder appear to be functioning normally. Her hemoglobin is stable. Her platelet count is very minimally decreased. Steroid taper continues. Plan continue supportive therapy. I discussed yesterday with her daughter keeping a tracheostomy in the back of her mind as a possibility if the patient is unable to be weaned to extubation. There is nothing to do for the small liquefied hematoma from the wound, shama dressing will be continued and followed closely. 06/01/2018 Postop duodenal resection including diverticulum and possible proximal jejunum which was ischemic. Postop gastrojejunostomy and feeding jejunostomy of closure of abdomen. Patient now extubated. Patient tolerating tube feeds. Plan contrast study through NG tube to assess gastric emptying through gastrojejunal anastomosis. If anastomosis appears patent and stomach empties well could remove nasogastric tube and begin slow progress of oral diet. Continue supportive therapy. Discussed Condition With: Dr. Roldan
--- NOTE | 2018-06-01 17:39 | P.PNID ---
Subjective Remarks: pt is stable and afebrile + blood culx 4/4 bottles + for MSSA repeat BC P 2D echo neg for veg's she is extubated CT showed 3.3 cm masslike opacity in the right hilum, no w/u for now Antibiotics: azactam vancomycin Allergies/Adverse Reactions: Allergies Sulfa (Sulfonamide Antibiotics) Allergy (Severe, Verified 05/17/18 03:34) Anaphylaxis amoxicillin Allergy (Mild, Verified 05/17/18 03:34) nausea codeine Allergy (Mild, Verified 05/17/18 03:34) constipation Objective Vital Signs 05/31/18 18:00 05/31/18 19:00 05/31/18 19:06 Temperature Pulse Rate 99 H 106 H 104 H Respiratory Rate Blood Pressure 137/62 137/62 Pulse Oximetry 97 98 97 05/31/18 20:00 05/31/18 20:06 05/31/18 20:59 Temperature 97.8 F Pulse Rate 106 H 106 H Respiratory Rate 18 Blood Pressure 149/70 H 149/70 H Pulse Oximetry 97 97 97 05/31/18 21:00 05/31/18 21:06 05/31/18 22:00 Temperature Pulse Rate 103 H 103 H 103 H Respiratory Rate Blood Pressure 125/60 Pulse Oximetry 98 97 95 05/31/18 22:06 05/31/18 23:00 05/31/18 23:06 Temperature Pulse Rate 102 H 104 H 104 H Respiratory Rate Blood Pressure 135/62 137/61 Pulse Oximetry 94 L 94 L 95 06/01/18 00:00 06/01/18 00:06 06/01/18 01:00 Temperature 98.4 F 98.5 F Pulse Rate 101 H 105 H 109 H Respiratory Rate 16 14 Blood Pressure 141/63 H 141/63 H 139/63 Pulse Oximetry 95 95 95 06/01/18 01:06 06/01/18 02:00 06/01/18 02:06 Temperature Pulse Rate 108 H 98 H 99 H Respiratory Rate Blood Pressure 139/63 124/58 L Pulse Oximetry 95 95 95 06/01/18 03:00 06/01/18 03:06 06/01/18 04:00 Temperature 98.5 F Pulse Rate 101 H 99 H 100 H Respiratory Rate 14 Blood Pressure 123/58 L 129/61 Pulse Oximetry 95 95 95 06/01/18 04:06 06/01/18 05:00 06/01/18 05:06 Temperature Pulse Rate 94 H 102 H 103 H Respiratory Rate 16 Blood Pressure 129/61 129/62 Pulse Oximetry 95 95 95 06/01/18 06:00 06/01/18 06:06 06/01/18 07:00 Temperature Pulse Rate 104 H 104 H 103 H Respiratory Rate 16 Blood Pressure 133/63 Pulse Oximetry 96 96 97 06/01/18 07:06 06/01/18 08:00 06/01/18 08:06 Temperature 97.8 F Pulse Rate 103 H 104 H 103 H Respiratory Rate 18 Blood Pressure 144/63 H 140/63 Pulse Oximetry 97 94 L 94 L 06/01/18 08:29 06/01/18 09:00 06/01/18 10:00 Temperature Pulse Rate 106 H 108 H Respiratory Rate 18 20 Blood Pressure 148/67 H 124/60 Pulse Oximetry 97 94 L 94 L 06/01/18 11:00 06/01/18 12:00 06/01/18 13:00 Temperature 97.6 F Pulse Rate 112 H 107 H 106 H Respiratory Rate 20 20 18 Blood Pressure 130/59 L 141/63 H 140/63 Pulse Oximetry 97 96 95 06/01/18 14:00 06/01/18 15:00 06/01/18 16:00 Temperature 98.0 F Pulse Rate 105 H 106 H 106 H Respiratory Rate 18 20 18 Blood Pressure 136/62 143/87 H 142/64 H Pulse Oximetry 100 98 99 06/01/18 17:00 Temperature Pulse Rate 106 H Respiratory Rate 20 Blood Pressure 132/60 Pulse Oximetry 99 Intake & Output 05/31/18 06/01/18 06/01/18 18:59 06:59 18:59 Intake Total 1819 / 1819 2164 / 2164 1459.625 / 1459.625 Output Total 1350 / 1350 2150 / 2150 Balance 469 / 469 1459.625 / 1459.625 Weight 77.2 kg Intake: IV 755 / 755 1200 / 1200 1459.625 / 1459.625 Protonix Inj 80 MG In NS Inj 100 / 100 100 / 100 100 / 100 100 ML @ 10 mls/hr IV.CONT Q10H [facility] Rx#:[id number] Diprivan 1000 mg/100 ml Inj 1, 80 / 80 000 mg In 100 ml @ 5 MCG/KG/MIN 2.922 mls/hr IV.CONT TITRATE PRN Rx#:[id number] Sodium Chloride 23.4% Inj 38.5 1000 / 1000 1009.625 / 1009.625 MEQ In Sterile Water for Inj 1, 000 ML @ 125 mls/hr IV.CONT . Q8H5M [facility] Rx#:[id number] Azactam Inj 2 GM In NS Inj 100 200 / 200 100 / 100 100 / 100 ML @ 200 mls/hr IV.SIG Q8H [facility] Rx#:[id number] Vancomycin Inj 1,000 MG In NS 250 / 250 250 / 250 Inj 250 ML @ 250 mls/hr IV.SIG Q24H [facility] Rx#:[id number] fentaNYL 10 mcg/mL Premix Drip 125 / 125 2,500 mcg In 250 ml @ 50 MCG/HR 5 mls/hr IV.SIG TITRATE PRN Rx #:[id number] Tube Feeding 544 / 544 564 / 564 Tube Irrigant 120 / 120 Water Bolus Amount 400 / 400 400 / 400 Output: Stool 600 / 600 Urine Amount (Catheter) 1550 / 1550 Indwelling Urethral Catheter 1550 / 1550 Gastric Drainage 750 / 750 600 / 600 Right Nare Nasogastric Tube 750 / 750 600 / 600 Other: Date of Last Bowel Movement 05/31/18 06/01/18 06/01/18 10:43 Blood - Peripheral Aerobic Blood Culture - Pending 06/01/18 10:43 Blood - Peripheral Anaerobic Blood Culture - Pending 06/01/18 10:48 Blood - Peripheral Aerobic Blood Culture - Pending 06/01/18 10:48 Blood - Peripheral Anaerobic Blood Culture - Pending 05/28/18 10:33 Blood - Peripheral Aerobic Blood Culture - Final Staphylococcus aureus 05/28/18 10:33 Blood - Peripheral Anaerobic Blood Culture - Final Staphylococcus aureus 05/28/18 10:27 Blood - Peripheral Aerobic Blood Culture - Final Staphylococcus aureus 05/28/18 10:27 Blood - Peripheral Anaerobic Blood Culture - Final Staphylococcus aureus Lab - Hematology Results 05/31/18 06/01/18 03:57 04:03 WBC 14.3 H 13.8 H RBC 3.29 L 3.19 L Hgb 9.6 L 9.3 L Hct 29.7 L 29.1 L MCV 90.2 91.2 MCH 29.1 29.0 MCHC 32.2 31.9 L RDW 15.5 15.5 Plt Count 94 L 88 L MPV 10.0 9.9 Prelim Diff (Auto) Slide review pending Slide review pending Neut % (Auto) 93.0 H 92.4 H Lymph % (Auto) 3.7 L 3.8 L [place] % (Auto) 2.5 2.6 Eos % (Auto) 0.7 1.0 Baso % (Auto) 0.1 0.2 Neut # (Auto) 13.3 H 12.7 H Lymph # (Auto) 0.5 L 0.5 L [place] # (Auto) 0.4 0.4 Eos # (Auto) 0.1 0.1 Baso # (Auto) 0.0 0.0 WBC Differential . . Diff Scan Auto diff confirmed Auto diff confirmed Differential Comment . . Platelet Estimate Low L Platelet Morphology Normal Lab - Chemistry Results 05/31/18 06/01/18 06/01/18 03:57 04:03 10:48 Sodium 159 H* 155 H 153 H Potassium 3.6 3.5 3.5 Chloride 126 H 124 H 123 H Carbon Dioxide 25.8 23.1 21.1 Anion Gap 7 8 9 BUN 63 H 59 H 55 H Creatinine 1.19 H 1.00 0.95 Estimated GFR 44 L 53 L 56 L Random Glucose 118 H 108 H 139 H Calcium 8.4 L 8.2 L 7.9 L Magnesium 2.4 Total Bilirubin 0.5 0.5 0.6 AST 17 25 30 ALT 64 H 56 H 61 H Alkaline Phosphatase 77 74 85 Lactate Dehydrogenase 252 H Total Protein 5.5 L 5.6 L 6.1 L Albumin 2.4 L 2.5 L 2.6 L Imaging: ITS Impressions GI Bleed Scan Nuclear Medicine 05/19/18 00:00 CONCLUSION: 1. 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 Patient was emergently brought to the interventional radiology department from the nuclear medicine department for angiography and intervention. Mesenteric Arteriogram 05/19/18 14:37 CONCLUSION: 1. 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 2. 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 PICC Line Insertion 05/20/18 00:00 CONCLUSION: 1. Uncomplicated central venous Power PICC line placement. 2. The PICC line can be used immediately. Abdomen X-Ray 05/28/18 05:23 CONCLUSION: No dilated bowel loops. Abdomen/Pelvis CT 05/29/18 00:00 CONCLUSION: 1. Since the prior CT, midline laparotomy with gastrojejunostomy has been performed. Anastomosis appears patent. There is a nasogastric tube which extends beyond the site of surgery and is in the first portion of the duodenum. Unchanged metallic structure near the ligament of Treitz, etiology uncertain. 2. A jejunostomy tube has also been placed without evidence of an acute complication. 3. Small, nonspecific free fluid in the pelvic cavity. No evidence of abscess. 4. No acute solid organ abnormality. Cysts of both kidneys and nonobstructing stones of the left kidney are again noted. 5. Sigmoid colon diverticulosis without diverticulitis. Chest CT 05/29/18 11:52 CONCLUSION: 1. 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 2. Pneumonia with volume loss in the right lower lobe. 3. Coronary artery calcification. 4. Emphysema. Chest X-Ray 06/01/18 06:00 CONCLUSION: 1. New mild bilateral lower lung zone opacity likely representing atelectasis. 2. Endotracheal tube no longer seen. Physical Exam: GENERAL: NAD SKIN: Warm and dry. HEAD: Atraumatic. Normocephalic. EYES: Pupils equal and round. No scleral icterus. No injection or drainage. ENT: No nasal bleeding or discharge. Mucous membranes pink and moist. NECK: Trachea midline. No JVD. CARDIOVASCULAR: Regular rate and rhythm. RESPIRATORY: No accessory muscle use. Clear to auscultation. Breath sounds equal bilaterally. GASTROINTESTINAL: Abdomen soft, tender, quite distended. surgre dressing in place DAKOTA drain in LLQ with serosaung d/c MUSCULOSKELETAL: Extremities without clubbing, cyanosis, or edema. No obvious deformities. NEUROLOGICAL: awake, opens eyes, follows commands talks approprietly PSYCHIATRIC: calm , cooperative Assessment and Plan - Plan GI bleeding POD3 exploratory laparotomy, gastrojejunostomy, closure, j tube Acute VDRF fever, leukocytosis - persistend Ileus ? Intraabdominal HIgh grade MSSA bacteremia ? source 3.3 cm masslike opacity in the right hilum with RLL consolidation cont vancomycin for MSSA bacteremia cont azactam for gram neg PNA Pt might not be a candidate for IVAN Likely will need at least 4 weeks of tx for MSSA dw Dr Roldan
[2018-06-02] MEDS: Sodium Chloride 23.4% Inj 38.5 MEQ in Water for Inj, Sterile 1,000 ML IV.CONT SCH ×4 (00:17→23:44)
[2018-06-02] MEDS: Aztreonam Inj 2 GM in Sodium Chloride 0.9% Inj 100 ML IV.SIG SCH ×3 (01:04→17:52)
[2018-06-02] MEDS: Pantoprazole Inj 80 MG in Sodium Chlor 0.9% Inj 100 ML IV.CONT SCH ×2 (04:03→14:55)
--- NOTE | 2018-06-02 04:44 | XR ---
EXAM DATE: 06/02/2018 4:40 AM EST AGE/SEX: 82 years / Female INDICATIONS: Shortness of breath. CLINICAL DATA: This is the patient's subsequent encounter. Patient reports that signs and symptoms h ave been present for 2 weeks and indicates a pain score of 3/10. MEDICAL/SURGICAL HISTORY: . Right lower lobe mass. Sjoegren syndrome. Lobectomy. Stent COMPARISON: [facility] – [place], CHEST 1V SINGLE AP, 06/01/2018. . FINDINGS: Single AP view the chest. Nasogastric tube remains in place. Cardiac silhouette is unchanged. Lungs a re clear. No evidence of pleural effusion or pneumothorax. CONCLUSION: No acute cardiopulmonary disease identified. Electronically signed by: Robert Le MD 06/02/2018 4:43 AM EST
[2018-06-02 05:28] LABS: Baso # (Auto) 0.1 th/mm3 (0.0-0.2); Baso % (Auto) 0.4 % (0.0-2.0); Eos # (Auto) 0.1 th/mm3 (0.0-0.4); Hematocrit 27.4 % (35.0-46.0); Lymph # (Auto) 0.6 th/mm3 (1.0-4.8); Lymph % (Auto) 3.9 % (9.0-44.0); Mean Corpuscular HGB Conc 32.8 % (32.0-36.0); Mean Corpuscular Hemoglobin 29.3 pg (27.0-34.0); Mean Corpuscular Volume 89.2 fL (80.0-100.0); Mean Platelet Volume 10.4 fL (7.0-11.0); Mono # (Auto) 0.4 th/mm3 (0.0-0.9); Mono % (Auto) 2.6 % (0.0-8.0); Neut # (Auto) 13.7 th/mm3 (1.8-7.7); Neut % (Auto) 92.1 % (16.0-70.0); Platelet Count 92 th/mm3 (150-450); Red Blood Count 3.07 mil/mm3 (4.00-5.30); Red Cell Distribution Width 15.4 % (11.6-17.2); White Blood Count 14.9 th/mm3 (4.0-11.0)
[2018-06-02 05:53] LABS: Albumin 2.3 g/dL (3.4-5.0); Anion Gap 13 meq/L (5-15); Aspartate Aminotransferase 27 U/L (15-37); Calcium 7.5 mg/dL (8.5-10.1); Carbon Dioxide 17.4 meq/L (21.0-32.0); Chloride 121 meq/L (98-107); Glomerular Filtration Rate 67 mL/min (>89); Glucose,Random 108 mg/dL (74-106); Magnesium 2.3 mg/dL (1.5-2.5); Potassium 3.2 meq/L (3.5-5.1); Sodium 151 meq/L (136-145)
[2018-06-02] MEDS: Vancomycin Inj 1,500 MG in Sodium Chlor 0.9% Inj 500 ML IV.SIG SCH (05:55)
[2018-06-02 05:58] LABS: Alanine Aminotransferase 56 U/L (10-53); Alkaline Phosphatase 78 U/L (45-117); Blood Urea Nitrogen 52 mg/dL (7-18); Total Protein 5.5 g/dL (6.4-8.2)
[2018-06-02] MEDS: Potassium Chlor 20 mEq Premix 20 MEQ/100 ML PIGGYBACK IV.SIG PRN ×4 (06:13→14:58)
[2018-06-02 07:49] LABS: Platelet Morphology Normal (Normal)
[2018-06-02] MEDS: Lidocaine 5% Patch T-DERMAL SCH (08:02)
[2018-06-02] MEDS: Potassium Chloride 25 MEQ Effervescent Tablet NG/OG SCH ×2 (08:02→20:12)
[2018-06-02] MEDS: amLODIPine 5 MG Tablet J-TUBE SCH (08:03)
[2018-06-02] MEDS: Senna/Docusate Sodium 8.6/50 MG Tablet PO SCH ×2 (08:03→20:12)
[2018-06-02] MEDS: MethylPREDNISolone Sod Succinate Inj 40 MG/ML Vial IV.PUSH SCH (08:04)
[2018-06-02] MEDS: Artificial Tears Opth Oint 3.5 GM Tube EACH EYE SCH ×2 (08:05→20:12)
[2018-06-02] MEDS: Heparin Central Flush 100 UNIT/ML 5 ML Vial IV.FLUSH SCH (08:05)
[2018-06-02] MEDS ORDERED: Diatrizoate Meglum/Diatrizoate Sod Liq 120 ML Bottle (for RAD diag) NG/OG ONE (09:30)
--- NOTE | 2018-06-02 12:42 | P.PNGS ---
Subjective Interval history: Extubated Up to the stretcher chair Doing well No pain KEILY Rod at bedside Physical Exam Vital signs: Vital Signs 06/01/18 13:00 06/01/18 14:00 06/01/18 15:00 Temperature Pulse Rate 106 H 105 H 106 H Respiratory Rate 18 18 20 Blood Pressure 140/63 136/62 143/87 H Pulse Oximetry 95 100 98 06/01/18 16:00 06/01/18 17:00 06/01/18 18:00 Temperature 98.0 F Pulse Rate 106 H 106 H 102 H Respiratory Rate 18 20 18 Blood Pressure 142/64 H 132/60 141/63 H Pulse Oximetry 99 99 100 06/01/18 19:00 06/01/18 19:06 06/01/18 20:00 Temperature 97.9 F Pulse Rate 97 H 98 H 98 H Respiratory Rate Blood Pressure 143/63 H Pulse Oximetry 100 100 100 06/01/18 20:06 06/01/18 21:00 06/01/18 21:06 Temperature Pulse Rate 99 H 103 H 101 H Respiratory Rate Blood Pressure 147/65 H 159/65 H Pulse Oximetry 100 99 99 06/01/18 22:00 06/01/18 22:06 06/01/18 22:13 Temperature Pulse Rate 99 H 109 H 108 H Respiratory Rate Blood Pressure 146/64 H 171/72 H 146/64 H Pulse Oximetry 99 99 100 06/01/18 23:00 06/01/18 23:06 06/02/18 00:00 Temperature 98.2 F Pulse Rate 103 H 101 H 104 H Respiratory Rate Blood Pressure 125/60 Pulse Oximetry 100 100 100 06/02/18 00:06 06/02/18 01:00 06/02/18 01:06 Temperature Pulse Rate 111 H 103 H 109 H Respiratory Rate Blood Pressure 143/71 H Pulse Oximetry 95 100 99 06/02/18 01:13 06/02/18 02:00 06/02/18 02:06 Temperature Pulse Rate 104 H 103 H 105 H Respiratory Rate Blood Pressure 145/65 H 151/67 H Pulse Oximetry 100 100 100 06/02/18 03:00 06/02/18 03:06 06/02/18 04:00 Temperature 98.2 F Pulse Rate 108 H 106 H Respiratory Rate Blood Pressure 150/62 H Pulse Oximetry 99 99 100 06/02/18 04:06 06/02/18 05:00 06/02/18 05:06 Temperature Pulse Rate 103 H 96 H 99 H Respiratory Rate Blood Pressure 138/62 148/65 H Pulse Oximetry 100 100 100 06/02/18 06:00 06/02/18 06:06 06/02/18 07:00 Temperature Pulse Rate 100 H 95 H Respiratory Rate Blood Pressure 129/65 Pulse Oximetry 100 100 06/02/18 07:06 06/02/18 08:00 06/02/18 09:00 Temperature 97.6 F Pulse Rate 98 H 97 H Respiratory Rate 20 20 Blood Pressure 141/65 H 165/72 H Pulse Oximetry 100 100 06/02/18 09:51 06/02/18 10:00 06/02/18 11:00 Temperature Pulse Rate 103 H 101 H Respiratory Rate 22 Blood Pressure 129/60 124/60 Pulse Oximetry 99 100 06/02/18 11:30 06/02/18 12:00 Temperature 97.9 F Pulse Rate 104 H 107 H Respiratory Rate 20 Blood Pressure 135/62 141/65 H Pulse Oximetry 99 97 Intake & Output 06/01/18 06/02/18 06/02/18 18:59 06:59 18:59 Intake Total 1659.625 / 2543.525 7204.625 / 6078.475 1988.625 / 1724.625 Output Total 2450 / 2450 2600 / 2600 Balance -790.375 / -790.375 -734.375 / -100.851 7901.625 / 1724.625 Weight 74.2 kg Intake: IV 1659.625 / 8080.648 9429.625 / 8065.678 2144.625 / 1724.625 Protonix Inj 80 MG In NS Inj 200 / 200 100 / 100 100 ML @ 10 mls/hr IV.CONT Q10H [facility] Rx#:[id number] Sodium Chloride 23.4% Inj 38.5 1009.625 / 5571.696 0472.625 / 6316.032 4725.625 / 1009.625 MEQ In Sterile Water for Inj 1, 000 ML @ 125 mls/hr IV.CONT . Q8H5M [facility] Rx#:[id number] Azactam Inj 2 GM In NS Inj 100 200 / 200 100 / 100 100 / 100 ML @ 200 mls/hr IV.SIG Q8H [facility] Rx#:[id number] KCl 20 mEq Premix Inj 20 meq In 100 / 100 100 ml @ 50 mls/hr IV.SIG Q2H PRN Rx#:[id number] Vancomycin Inj 1,000 MG In NS 250 / 250 Inj 250 ML @ 250 mls/hr IV.SIG Q24H [facility] Rx#:[id number] Vancomycin Inj 1,500 MG In NS 515 / 515 Inj 500 ML @ 250 mls/hr IV.SIG Q24H [facility] Rx#:[id number] Tube Feeding 556 / 556 Tube Irrigant 100 / 100 Output: Stool 100 / 100 50 / 50 Urine Amount (Catheter) 1500 / 1500 1550 / 1550 Indwelling Urethral Catheter 1500 / 1500 1550 / 1550 Gastric Drainage 850 / 850 1000 / 1000 Right Nare Nasogastric Tube 850 / 850 1000 / 1000 Other: Date of Last Bowel Movement 06/02/18 Narrative: Alert and awake Abd: soft; midline dressing in place. DAKOTA removed. J tube with TF. Mild generalized edema Rectal tube with brown stool - Urinary Catheter Management Indwelling Urethral Catheter Cath placed during this visit: yes Reason for continuing: Hourly intake/output Insertion date: 05/20/18 Insertion time: 19:55 Results - Labs 06/02/18 03:51 06/02/18 03:51 Laboratory Results - last 24 hr 06/02/18 06/02/18 03:51 03:51 WBC 14.9 H RBC 3.07 L Hgb 9.0 L Hct 27.4 L MCV 89.2 MCH 29.3 MCHC 32.8 RDW 15.4 Plt Count 92 L MPV 10.4 Prelim Diff (Auto) Slide review pending Neut % (Auto) 92.1 H Lymph % (Auto) 3.9 L Lawrence % (Auto) 2.6 Eos % (Auto) 1.0 Baso % (Auto) 0.4 Neut # (Auto) 13.7 H Lymph # (Auto) 0.6 L Lawrence # (Auto) 0.4 Eos # (Auto) 0.1 Baso # (Auto) 0.1 WBC Differential . Diff Scan Auto diff confirmed Differential Comment . Platelet Estimate Low L Platelet Morphology Normal Sodium 151 H Potassium 3.2 L Chloride 121 H Carbon Dioxide 17.4 L Anion Gap 13 BUN 52 H Creatinine 0.82 Estimated GFR 67 L Random Glucose 108 H Calcium 7.5 L Magnesium 2.3 Total Bilirubin 0.5 AST 27 ALT 56 H Alkaline Phosphatase 78 Total Protein 5.5 L D Albumin 2.3 L - Imaging Imaging: ITS Impressions GI Bleed Scan Nuclear Medicine 05/19/18 00:00 CONCLUSION: 1. 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 Patient was emergently brought to the interventional radiology department from the nuclear medicine department for angiography and intervention. Mesenteric Arteriogram 05/19/18 14:37 CONCLUSION: 1. 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 2. 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 PICC Line Insertion 05/20/18 00:00 CONCLUSION: 1. Uncomplicated central venous Power PICC line placement. 2. The PICC line can be used immediately. Abdomen X-Ray 05/28/18 05:23 CONCLUSION: No dilated bowel loops. Abdomen/Pelvis CT 05/29/18 00:00 CONCLUSION: 1. Since the prior CT, midline laparotomy with gastrojejunostomy has been performed. Anastomosis appears patent. There is a nasogastric tube which extends beyond the site of surgery and is in the first portion of the duodenum. Unchanged metallic structure near the ligament of Treitz, etiology uncertain. 2. A jejunostomy tube has also been placed without evidence of an acute complication. 3. Small, nonspecific free fluid in the pelvic cavity. No evidence of abscess. 4. No acute solid organ abnormality. Cysts of both kidneys and nonobstructing stones of the left kidney are again noted. 5. Sigmoid colon diverticulosis without diverticulitis. Chest CT 05/29/18 11:52 CONCLUSION: 1. 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 2. Pneumonia with volume loss in the right lower lobe. 3. Coronary artery calcification. 4. Emphysema. Chest X-Ray 06/02/18 06:00 CONCLUSION: No acute cardiopulmonary disease identified. Assessment and Plan - Assessment (1) GI bleed Code(s): K92.2 - Gastrointestinal hemorrhage, unspecified Status: Acute Plan: 82 year old female s/p exploratory laparotomy, gastrojejunostomy, closure, j tube -Gastrograffin study pending at this time--- will review once available -Tolerating TF at goal of 50 cc/hr -NG output remains high -PT/rehab - Plan I personally evaluated the patient room 1309. She was just cleaned up from nursing. She says she had a good day. She denies any pain. I evaluated the findings from her upper GI study which showed minimal emptying of the stomach into the gastrojejunal anastomosis. Plan continue NG drainage. Attempt trials to clamp the potentially remove the NG tube over the next week as hopefully the gastrojejunal anastomosis empties the stomach better. Continue current support. The exam, history, and the medical decision-making described in the above note were completed with the assistance of the mid-level provider. I reviewed and agree with the findings presented. I attest that I had a [id number] encounter with the patient on the same day, and personally performed and documented my assessment and findings in the medical record.
--- NOTE | 2018-06-02 13:12 | P.PNCC ---
Subjective Subjective Remarks/Hospital Course: Hospital Course: 82yF with history of amyloidosis who presented with GI bleeding, hypotension, and severe anemia. originally admitted to the floor. hgb continued to downtrend despite transfusions. today taken for EGD which found blood in the stomach and clot, but no active bleeding. despite this, hgb still did not improve. taken for bleeding scan which was very +. discussed case with Dr. Garcia/Dr. Garland in IR. review of admission CT abd/pelvis demonstrates possible bleeding at duodenal bulb concerning for ulceration. Taken emergently to IR for embolization which appears to be successful. I evaluated the patient upon arrival to the ICU post-IR procedure. she is stable. complaining of hip pain. hgb has improved appropriately. she denies other complaints. she asked me not to look at her groin sites because "my hips hurt and I am tired." Recent evaluation by bedside RN is without hematoma, and this evaluation is deferred at patient's request (bedside RN to continue to monitor for signs of hematoma). remainder of ROS negative. Subjective: 05/20: doing well. complaining of moderate abdominal pain 5/10. receiving iv dilaudid currently. plan for EGD today. hgb dropped from 7.8 to 7.4, but slightly more tachycardic today, and I am worried about ongoing bleeding, although it does appear to be much slower clinically than yesterday. I discussed with GI TRADE SHOW MANAGER that per my conversation with IR, the lesion may be in the 4th portion of the duodenum near the ligament and it may require further investigation that usual EGD, and possibly push enteroscopy. She stated she would convey to the proceduralist. Dr. Shin suggests type II NSTEMI secondary to anemia and I agree completely with his assessment. Given that she is going soon for repeat EGD with anesthesia, will give 1 additional unit of prbc as she clearly has demonstrated she needs higher hematocrit for oxygen carrying capacity to her known ischemic CAD lesions. 05/21: s/p exploratory laparotomy last night. open abdomen. hgb stable. became acutely hypotensive with increased wound vac output one time today- emergently gave 1 unit prbc and 1 unit plt empirically given sudden change in condition. significant 3rd space losses requiring additional resuscitative efforts. remains deeply sedated. off vasopressors. remains intubated. 05/22: more hemodynamically stable today. hgb stable. still high wound-vac output with 300-500mL/12h. uop remains adequate at 70-80mL/hr, but Cr slightly elevated over baseline. unable to start diuresis yet and clinically although developing anasarca in the tissues, appears intravascularly euvolemic but not overloaded. likely will not tolerate diuresis efforts without significant kidney injury at this present juncture. needs bringback and washout in OR, but will leave timing of this to general surgery. 05/23: Received from operating room in good condition. Abdominal wound closed following gastrojejunostomy. Joseph-Vieira drain in region of the duodenal stump, gastric anastomosis. Nasogastric tube to not be moved, good position in stomach, keep to low intermittent suction. Downstream jejunostomy tube for initiation of trickle feeds. Renal function this morning excellent, follow closely. Chemical ventilation for the next couple of days as we observe tension on the abdominal wall. Meticulously avoid fluid overload. At present she is hypertensive and tachycardic for which we will restart propofol and use boluses of fentanyl as needed. Baseline fentanyl drip is infusing. 05/24: Remains warm and well-perfused overnight. Urine output acceptable at 35- 40 cc/h. Tolerated spontaneous breathing trial well this morning, we keep on vent for another 24-48 hours. Generalized edema persists. 05/25: Intubated sedated heavily. Urine output excellent with Lasix overall 3 L. Currently remains grossly fluid overloaded approximately 20 kg up from admission weight. We will start scheduled Lasix 20 every 8 hours with potassium replacement to facilitate ventilator weaning. 05/26: Sedated, orally intubated on mech vent. Being diuresed. Elevated BP on lightening sedation noted. 05/27: Sedated, orally intubated on mechanical ventilation. Being diuresed. Failed CPAP trial earlier. On Cleviprex for hypertension 05/28: Had episode of emesis last night. NGT remains to suction. Febrile overnight with rising WBCs noted. Sputum culture and UA ordered 05/27, getting blood cultures and starting empiric Abx coverage. Being diuresed. Cleviprex gtt being titrated down. 05/29: Arousable, intubated on mechanical ventilation. Follows commands by nodding, squeezes my fingers on command. Febrile yesterday for which she had cultures sent and was started on empiric antibiotic coverage. Blood cultures 3 out of 4 are growing gram-positive cocci. Her central line and PICC line were discontinued yesterday. 05/30: Sedated, arousable, intubated on mechanical ventilation. Follows commands by nodding and squeezing my fingers. CT chest with right hilar mass near right mainstem bronchus. CT abdomen pelvis with postop changes. Being diuresed to mobilize fluid. Daily CPAP trials. Blood cultures with gram- positive cocci. 05/31: Patient remains intubated off all sedation more awake today wakes up easily follows commands. Urine output adequate, sodium is 159. I have placed her on quarter normal saline and increase the free water flushes. Still receiving Lasix 06/01: Extubated yesterday breathing comfortably tolerating well, though lethargic. Serum sodium coming down now 155 with quarter normal saline. Urine output 1.5 L with IV Lasix 06/02: Patient breathing comfortably more alert today. Communicative denies any distress. Had Gastrografin study today results pending. Sodium improved to 151 with hypotonic saline. Urine output 3 L in 24 hours. Set up in stretcher chair for 3 hours yesterday Objective Vital Signs / I&O: Vital Signs 06/01/18 14:00 06/01/18 15:00 06/01/18 16:00 Temperature 98.0 F Pulse Rate 105 H 106 H 106 H Respiratory Rate 18 20 18 Blood Pressure 136/62 143/87 H 142/64 H Pulse Oximetry 100 98 99 06/01/18 17:00 06/01/18 18:00 06/01/18 19:00 Temperature Pulse Rate 106 H 102 H 97 H Respiratory Rate 20 18 Blood Pressure 132/60 141/63 H Pulse Oximetry 99 100 100 06/01/18 19:06 06/01/18 20:00 06/01/18 20:06 Temperature 97.9 F Pulse Rate 98 H 98 H 99 H Respiratory Rate Blood Pressure 143/63 H 147/65 H Pulse Oximetry 100 100 100 06/01/18 21:00 06/01/18 21:06 06/01/18 22:00 Temperature Pulse Rate 103 H 101 H 99 H Respiratory Rate Blood Pressure 159/65 H 146/64 H Pulse Oximetry 99 99 99 06/01/18 22:06 06/01/18 22:13 06/01/18 23:00 Temperature Pulse Rate 109 H 108 H 103 H Respiratory Rate Blood Pressure 171/72 H 146/64 H Pulse Oximetry 99 100 100 06/01/18 23:06 06/02/18 00:00 06/02/18 00:06 Temperature 98.2 F Pulse Rate 101 H 104 H 111 H Respiratory Rate Blood Pressure 125/60 143/71 H Pulse Oximetry 100 100 95 06/02/18 01:00 06/02/18 01:06 06/02/18 01:13 Temperature Pulse Rate 103 H 109 H 104 H Respiratory Rate Blood Pressure 145/65 H Pulse Oximetry 100 99 100 06/02/18 02:00 06/02/18 02:06 06/02/18 03:00 Temperature Pulse Rate 103 H 105 H 108 H Respiratory Rate Blood Pressure 151/67 H Pulse Oximetry 100 100 99 06/02/18 03:06 06/02/18 04:00 06/02/18 04:06 Temperature 98.2 F Pulse Rate 106 H 103 H Respiratory Rate Blood Pressure 150/62 H 138/62 Pulse Oximetry 99 100 100 06/02/18 05:00 06/02/18 05:06 06/02/18 06:00 Temperature Pulse Rate 96 H 99 H 100 H Respiratory Rate Blood Pressure 148/65 H Pulse Oximetry 100 100 100 06/02/18 06:06 06/02/18 07:00 06/02/18 07:06 Temperature Pulse Rate 95 H Respiratory Rate Blood Pressure 129/65 141/65 H Pulse Oximetry 100 06/02/18 08:00 06/02/18 09:00 06/02/18 09:51 Temperature 97.6 F Pulse Rate 98 H 97 H Respiratory Rate 20 20 Blood Pressure 165/72 H 129/60 Pulse Oximetry 100 100 06/02/18 10:00 06/02/18 11:00 06/02/18 11:30 Temperature Pulse Rate 103 H 101 H 104 H Respiratory Rate 22 Blood Pressure 124/60 135/62 Pulse Oximetry 99 100 99 06/02/18 12:00 Temperature 97.9 F Pulse Rate 107 H Respiratory Rate 20 Blood Pressure 141/65 H Pulse Oximetry 97 Intake & Output 06/01/18 06/02/18 06/02/18 18:59 06:59 18:59 Intake Total 1659.625 / 1925.622 6878.625 / 4798.540 5326.625 / 1724.625 Output Total 2450 / 2450 2600 / 2600 Balance -790.375 / -790.375 -734.375 / -631.841 5458.625 / 1724.625 Weight 74.2 kg Intake: IV 1659.625 / 1753.653 5734.625 / 3288.291 7538.625 / 1724.625 Protonix Inj 80 MG In NS Inj 200 / 200 100 / 100 100 ML @ 10 mls/hr IV.CONT Q10H [facility] Rx#:[id number] Sodium Chloride 23.4% Inj 38.5 1009.625 / 9667.242 7607.625 / 0586.983 4068.625 / 1009.625 MEQ In Sterile Water for Inj 1, 000 ML @ 125 mls/hr IV.CONT . Q8H5M [facility] Rx#:[id number] Azactam Inj 2 GM In NS Inj 100 200 / 200 100 / 100 100 / 100 ML @ 200 mls/hr IV.SIG Q8H [facility] Rx#:[id number] KCl 20 mEq Premix Inj 20 meq In 100 / 100 100 ml @ 50 mls/hr IV.SIG Q2H [facility] Rx#:[id number] Vancomycin Inj 1,000 MG In NS 250 / 250 Inj 250 ML @ 250 mls/hr IV.SIG Q24H [facility] Rx#:[id number] Vancomycin Inj 1,500 MG In NS 515 / 515 Inj 500 ML @ 250 mls/hr IV.SIG Q24H [facility] Rx#:[id number] Tube Feeding 556 / 556 Tube Irrigant 100 / 100 Output: Stool 100 / 100 50 / 50 Urine Amount (Catheter) 1500 / 1500 1550 / 1550 Indwelling Urethral Catheter 1500 / 1500 1550 / 1550 Gastric Drainage 850 / 850 1000 / 1000 Right Nare Nasogastric Tube 850 / 850 1000 / 1000 Other: Date of Last Bowel Movement 06/02/18 Result Diagrams: 06/02/18 03:51 06/02/18 03:51 Objective Remarks: GENERAL: Lying in bed breathing comfortably on nasal cannula. HEENT: Normocephalic. Atraumatic. CHEST: Clear breath sounds bilaterally, equal chest rise. Air entry diminished at the bases. CARDIOVASCULAR: Normal S1-S2. Regular normal rate, regular rhythm. No JVD. ABDOMEN: Fascia closed, postsurgical wound intact, abdominal binder in place. Soft, nondistended. Few bowel sounds heard. Mild tenderness on palpation MUSCULOSKELETAL: Bilateral foot pulses 2+. bilateral foot and ankle edema. Warm and well-perfused fingers and toes. NEUROLOGICAL: Patient is alert awake appears weak but follows commands x4 appears comfortable no focal deficits. Overall improving Assessment and Plan - Assessment and Plan Plan: Assessment: 82yF with amyloidosis and active GI bleed. s/p emergent IA embolization 05/19. s/p EGD 05/19 and again 05/20 with ischemia present. s/p emergent exploratory laparotomy with duodenal and jejunal resection, initially left in discontinuity with open abdomen, and now reconstructed with abdominal wall closure. Scheduled Lasix for aggressive diuresis. Quarter normal saline started for hypernatremia Upper GI bleed Acute hypoxic and hypercarbic respiratory failure-resolved s/p emergent ex lap with duodenal and jejunal resection, initially left in discontinuity with open abdomen 05/20 Now reconstructed with abdominal wall closure. Severe acute anemia secondary to blood loss requiring transfusion- persistent duodenal ulcer Type II NSTEMI secondary to demand ischemia from severe anemia s/p EGD 05/19, 05/20. s/p emergent IR embolization 05/19 severe acute thrombocytopenia - ITP improving acute protein calorie malnutrition- moderate to severe Fluid overload sepsis Pneumonia Staph aureus bacteremia Right hilar mass H/o Right lower lobectomy, and adenoca lung Plan: - Extubated 05/31/2018 tolerating well - Continue IV Lasix 20 mg every 12 hours with potassium replacement - Quarter normal saline 125 ml per hour for hypernatremia - Abx with azactam, zyvox, flagyl via G tube. ID following. micafungin added by ID on 05/28. - Blood cultures from 05/28 growing MSSA. Sputum culture Citrobacter and staph aureus - Pulmonary consult requested for right hilar mass on CT chest done on 05/29. Per Dr. Pack's note, daughter Nohemy Davis wants to hold off bronchoscopy. Once better patient can make the decision herself - Labetalol prn, Cardene gtt to keep SBP less than 160mm Hg, Norvasc 5mg via J tube daily - Serial hemoglobin, transfuse to keep hgb > 7 - serially check platelets, transfuse to keep plt > 50k. Tapering solumedrol, decreased to 30mg daily - tube feeds per general surgery, through jejunostomy. NGT to suction. Gastrografin study completed today report pending - Strict intake output, monitor and replete elect lites, follow BUN and creatinine. - ICU electrolyte replacement protocol - SCDs. Subcu heparin when cleared by general surgery/ Heme-onc. Platelet count 92 today 05/28: Discussed with ID, discussed with Dr. James, discussed with patient's daughter at bedside. 05/29: Discussed with ID Dr. Dhillon, discussed with patient's daughter Raciel Conley and updated her regarding current clinical status including plan of care and she voiced understanding and was agreeable. 06/01. D/W and updated daughter Raciel Conley Overall impression: This patient remains critically ill with fluctuating renal function, fluid overload and compromised respiratory reserve due to recent resuscitation volume and generalized edema, complicated by sepsis. Slowly improving extubated but overall weak. Level 2
--- NOTE | 2018-06-02 14:16 | FL ---
EXAM DATE: 06/02/2018 11:40 AM EST AGE/SEX: 82 years / Female INDICATIONS: Post gastrojejunostomy, check for patency history of bleeding duodenal diverticulum whi ch was resected. CLINICAL DATA: This is the patient's subsequent encounter. Patient reports that signs and symptoms h ave been present for 2 weeks and indicates a pain score of Nonresponsive. MEDICAL/SURGICAL HISTORY: Cardiovascular disease. Carcinoma, lung. upper GI bleed Coronary ar césar stent. gastrojejunostomy, lung lobectomy COMPARISON: [facility], ABDOMEN 1V KUB, 05/28/2018. . FLUORO TIME: 5.0 IMAGE COUNT: 14 FINDINGS: The pulmonary grouter helper film demonstrates a nasogastric tube in place with the tip projected in the regio n of the distal stomach. There are multiple surgical clips and mel. The bowel gas pattern is unre markable. There is a mild to moderate rotatory scoliosis of the thoracic and lumbar spine with degene rative change. The examination was performed through the nasogastric tube as requested. There is faint visualization of the gastrojejunostomy with only minimal contrast extending through this region. The distal stomac h and duodenum are intact. The patient was kept in the department for 30 minutes and a delayed image was performed at 1 hour. This demonstrated apparent contrast in the more distal small bowel in the pe lvis. There is no evidence of extravasation. CONCLUSION: 1. During the first 30 minutes there was only minimal passage of contrast into the gastrojejunostomy . 2. On the delayed 1 hour film there is apparent contrast noted in the more distal small bowel. Electronically signed by: Gerard Polanco MD 06/02/2018 2:15 PM EST
[2018-06-02] MEDS: fentaNYL Citrate Inj 100 MCG/2 ML Ampul IV.PUSH PRN (20:59)
[2018-06-03] MEDS: Pantoprazole Inj 80 MG in Sodium Chlor 0.9% Inj 100 ML IV.CONT SCH ×3 (00:29→21:14)
[2018-06-03] MEDS: Aztreonam Inj 2 GM in Sodium Chloride 0.9% Inj 100 ML IV.SIG SCH ×2 (01:05→10:13)
[2018-06-03] MEDS: fentaNYL Citrate Inj 100 MCG/2 ML Ampul IV.PUSH PRN ×3 (01:11→21:21)
--- NOTE | 2018-06-03 04:12 | XR ---
EXAM DATE: 06/03/2018 4:04 AM EST AGE/SEX: 82 years / Female INDICATIONS: Respiratory Disease. CLINICAL DATA: This is the patient's subsequent encounter. Patient reports that signs and symptoms h ave been present for 2 weeks and indicates a pain score of Nonresponsive. MEDICAL/SURGICAL HISTORY: . Right lower lobe mass. Sjoegren syndrome. Lobectomy. . Stent. COMPARISON: [facility] [place], CHEST 1V SINGLE AP, 06/02/2018. . FINDINGS: Single AP view the chest. Nasogastric tube remains in place. Cardiac silhouette is enlarged but uncha nged. Mild elevation of the right hemidiaphragm. Lungs are clear. No evidence of pleural effusion or pneumothorax. CONCLUSION: No acute cardiopulmonary disease identified. Electronically signed by: Robert Le MD 06/03/2018 4:11 AM EST
[2018-06-03 04:41] LABS: Baso # (Auto) 0.1 th/mm3 (0.0-0.2); Baso % (Auto) 0.3 % (0.0-2.0); Eos # (Auto) 0.2 th/mm3 (0.0-0.4); Eos % (Auto) 1.4 % (0.0-4.0); Hemoglobin 9.4 gm/dL (11.6-15.3); Lymph # (Auto) 0.6 th/mm3 (1.0-4.8); Mean Corpuscular HGB Conc 32.3 % (32.0-36.0); Mean Corpuscular Hemoglobin 28.7 pg (27.0-34.0); Mean Platelet Volume 10.4 fL (7.0-11.0); Mono # (Auto) 0.4 th/mm3 (0.0-0.9); Mono % (Auto) 2.5 % (0.0-8.0); Neut # (Auto) 13.5 th/mm3 (1.8-7.7); Neut % (Auto) 91.8 % (16.0-70.0); Platelet Count 103 th/mm3 (150-450); Red Blood Count 3.26 mil/mm3 (4.00-5.30); Red Cell Distribution Width 15.3 % (11.6-17.2); White Blood Count 14.7 th/mm3 (4.0-11.0)
[2018-06-03 05:11] LABS: Albumin 2.6 g/dL (3.4-5.0); Anion Gap 10 meq/L (5-15); Aspartate Aminotransferase 48 U/L (15-37); Blood Urea Nitrogen 47 mg/dL (7-18); Chloride 118 meq/L (98-107); Glomerular Filtration Rate 77 mL/min (>89); Glucose,Random 111 mg/dL (74-106); Magnesium 2.2 mg/dL (1.5-2.5); Potassium 3.4 meq/L (3.5-5.1); Sodium 146 meq/L (136-145)
[2018-06-03 05:15] LABS: Alanine Aminotransferase 66 U/L (10-53); Alkaline Phosphatase 87 U/L (45-117); Total Protein 5.8 g/dL (6.4-8.2)
[2018-06-03] MEDS: Potassium Chloride 25 MEQ Effervescent Tablet PO PRN (05:53)
[2018-06-03] MEDS: Vancomycin Inj 1,500 MG in Sodium Chlor 0.9% Inj 500 ML IV.SIG SCH (06:48)
[2018-06-03] MEDS: Potassium Chlor 20 mEq Premix 20 MEQ/100 ML PIGGYBACK IV.SIG PRN ×2 (07:39→09:30)
[2018-06-03] MEDS: Sodium Chloride 23.4% Inj 38.5 MEQ in Water for Inj, Sterile 1,000 ML IV.CONT SCH (07:53)
[2018-06-03] MEDS: amLODIPine 5 MG Tablet J-TUBE SCH ×2 (08:32→08:43)
[2018-06-03] MEDS: MethylPREDNISolone Sod Succinate Inj 40 MG/ML Vial IV.PUSH SCH (08:32)
[2018-06-03] MEDS: Senna/Docusate Sodium 8.6/50 MG Tablet PO SCH ×3 (08:32→21:14)
[2018-06-03] MEDS: Heparin Central Flush 100 UNIT/ML 5 ML Vial IV.FLUSH SCH (08:32)
[2018-06-03] MEDS: Potassium Chloride 25 MEQ Effervescent Tablet NG/OG SCH ×2 (08:33→21:14)
[2018-06-03] MEDS: Artificial Tears Opth Oint 3.5 GM Tube EACH EYE SCH ×2 (08:33→21:14)
[2018-06-03] MEDS: Lidocaine 5% Patch T-DERMAL SCH (08:33)
--- NOTE | 2018-06-03 08:35 | P.PNONC ---
Subjective Interval history: Much more alert. Recognizes me. Vomited this morning but feels well and abdomen not painful. No hematemesis Objective Vital Signs/Intake & Output: Vital Signs 06/02/18 09:00 06/02/18 09:51 06/02/18 10:00 Temperature Pulse Rate 97 H 103 H Respiratory Rate 20 22 Blood Pressure 129/60 Pulse Oximetry 100 99 06/02/18 11:00 06/02/18 11:30 06/02/18 12:00 Temperature 97.9 F Pulse Rate 101 H 104 H 107 H Respiratory Rate 20 Blood Pressure 124/60 135/62 141/65 H Pulse Oximetry 100 99 97 06/02/18 12:30 06/02/18 13:00 06/02/18 13:30 Temperature Pulse Rate 103 H 107 H 101 H Respiratory Rate 22 20 20 Blood Pressure 130/62 134/64 135/62 Pulse Oximetry 100 99 99 06/02/18 14:00 06/02/18 14:30 06/02/18 15:00 Temperature Pulse Rate 96 H 97 H 93 H Respiratory Rate 22 20 Blood Pressure 131/60 140/64 155/65 H Pulse Oximetry 99 100 99 06/02/18 15:30 06/02/18 16:00 06/02/18 16:30 Temperature Pulse Rate 96 H 98 H 96 H Respiratory Rate 22 Blood Pressure 133/64 144/66 H 149/66 H Pulse Oximetry 99 99 99 06/02/18 17:00 06/02/18 17:30 06/02/18 18:00 Temperature Pulse Rate 92 H 94 H 93 H Respiratory Rate 22 22 Blood Pressure 143/63 H 149/66 H 153/70 H Pulse Oximetry 98 99 100 06/02/18 18:30 06/02/18 19:00 06/02/18 19:30 Temperature Pulse Rate 92 H 93 H 96 H Respiratory Rate Blood Pressure 143/64 H 149/68 H 158/71 H Pulse Oximetry 100 100 100 06/02/18 20:00 06/02/18 20:32 06/02/18 21:00 Temperature 97.9 F Pulse Rate 94 H 93 H 94 H Respiratory Rate Blood Pressure 167/68 H 159/70 H 157/70 H Pulse Oximetry 100 100 99 06/02/18 21:37 06/02/18 22:00 06/02/18 23:00 Temperature Pulse Rate 95 H 97 H Respiratory Rate 18 Blood Pressure 132/60 142/63 H Pulse Oximetry 98 99 06/03/18 00:00 06/03/18 01:00 06/03/18 02:00 Temperature 98 F Pulse Rate 99 H 93 H 96 H Respiratory Rate Blood Pressure 158/70 H 156/68 H 145/65 H Pulse Oximetry 98 100 98 06/03/18 03:00 06/03/18 04:00 06/03/18 05:00 Temperature 97.6 F Pulse Rate 102 H 98 H 103 H Respiratory Rate Blood Pressure 159/72 H 150/67 H 147/66 H Pulse Oximetry 99 98 100 06/03/18 06:00 06/03/18 07:00 06/03/18 08:00 Temperature Pulse Rate 101 H 95 H 99 H Respiratory Rate Blood Pressure 148/70 H Pulse Oximetry 100 98 Intake & Output 06/02/18 06/03/18 06/03/18 18:59 06:59 18:59 Intake Total 3834.250 / 3834.250 1820.625 / 5096.243 5031.625 / 1009.625 Output Total 2850 / 2850 3100 / 3100 Balance 984.250 / 984.250 -1279.375 / -2155.481 3230.625 / 1009.625 Weight 75.8 kg Intake: IV 3234.250 / 3234.250 1209.625 / 7522.285 3559.625 / 1009.625 Protonix Inj 80 MG In NS Inj 100 / 100 100 / 100 100 ML @ 10 mls/hr IV.CONT Q10H [facility] Rx#:[id number] Sodium Chloride 23.4% Inj 38.5 2019.250 / 2019.250 1009.625 / 8020.425 9104.625 / 1009.625 MEQ In Sterile Water for Inj 1, 000 ML @ 125 mls/hr IV.CONT . Q8H5M [facility] Rx#:[id number] Azactam Inj 2 GM In NS Inj 100 200 / 200 100 / 100 ML @ 200 mls/hr IV.SIG Q8H [facility] Rx#:[id number] KCl 20 mEq Premix Inj 20 meq In 400 / 400 100 ml @ 50 mls/hr IV.SIG Q2H PRN Rx#:[id number] Vancomycin Inj 1,500 MG In NS 515 / 515 Inj 500 ML @ 250 mls/hr IV.SIG Q24H [facility] Rx#:[id number] Tube Feeding 600 / 600 511 / 511 Tube Irrigant 100 / 100 Output: Urine 1800 / 1800 Stool 300 / 300 100 / 100 Urine Amount (Catheter) 1300 / 1300 Indwelling Urethral Catheter 1300 / 1300 Gastric Drainage 1250 / 1250 1200 / 1200 Right Nare Nasogastric Tube 1250 / 1250 1200 / 1200 Other: Date of Last Bowel Movement 06/02/18 06/03/18 # Emeses 1 Result Diagrams: 06/03/18 03:54 06/03/18 03:54 Laboratory Results: Laboratory Results - last 24 hr 06/02/18 06/03/18 06/03/18 23:49 03:54 03:54 WBC 14.7 H RBC 3.26 L Hgb 9.4 L Hct 29.0 L MCV 89.0 MCH 28.7 MCHC 32.3 RDW 15.3 Plt Count 103 L MPV 10.4 Neut % (Auto) 91.8 H Lymph % (Auto) 4.0 L [place] % (Auto) 2.5 Eos % (Auto) 1.4 Baso % (Auto) 0.3 Neut # (Auto) 13.5 H Lymph # (Auto) 0.6 L [place] # (Auto) 0.4 Eos # (Auto) 0.2 Baso # (Auto) 0.1 WBC Differential . Differential Comment Auto diff final Sodium 146 H Potassium 3.6 3.4 L Chloride 118 H Carbon Dioxide 18.0 L Anion Gap 10 BUN 47 H Creatinine 0.73 Estimated GFR 77 L Random Glucose 111 H Calcium 8.0 L Magnesium 2.2 Total Bilirubin 0.7 AST 48 H ALT 66 H Alkaline Phosphatase 87 Total Protein 5.8 L Albumin 2.6 L Culture Results: Microbiology 06/01/18 10:43 Aerobic Blood Culture - Preliminary Blood - Peripheral No growth in 1 day Anaerobic Blood Culture - Preliminary No growth in 1 day 06/01/18 10:48 Aerobic Blood Culture - Preliminary Blood - Peripheral No growth in 1 day Anaerobic Blood Culture - Preliminary No growth in 1 day 05/28/18 10:33 Aerobic Blood Culture - Final Blood - Peripheral Staphylococcus aureus Anaerobic Blood Culture - Final Staphylococcus aureus 05/28/18 10:27 Aerobic Blood Culture - Final Blood - Peripheral Staphylococcus aureus Anaerobic Blood Culture - Final Staphylococcus aureus Imaging Studies: Impressions Gastrografin Study 06/02/18 00:00 CONCLUSION: 1. During the first 30 minutes there was only minimal passage of contrast into the gastrojejunostomy. 2. On the delayed 1 hour film there is apparent contrast noted in the more distal small bowel. Chest X-Ray 06/03/18 06:00 CONCLUSION: No acute cardiopulmonary disease identified. Medications: Active Medications Generic Name Dose Route Start Last Admin Trade Name Freq PRN Reason Stop Dose Admin Acetaminophen 650 mg 05/17/18 06:10 05/28/18 16:28 Tylenol PO 650 mg Q4H PRN Administration Temp > 100.4 Albuterol 2.5 mg 05/21/18 23:28 05/28/18 08:20 Albuterol Neb (Prn) NEB 2.5 mg Q2HR NEB PRN Administration WHEEZING Amlodipine Besylate 5 mg 05/26/18 10:00 06/02/18 08:03 Norvasc J-TUBE 5 mg DAILY [facility] Administration Artificial Tears 1 applicatio 05/22/18 21:00 06/02/18 20:12 Lacrilube Opth Oint EACH EYE 1 applicatio BID [facility] Administration Clonidine HCl 0.1 mg 05/26/18 11:24 05/26/18 23:31 Catapres PO 0.1 mg Q6H PRN Administration SBP>160, DBP>90 Fentanyl Citrate 25 mcg 06/01/18 08:40 06/03/18 01:11 Fentanyl Inj IV.PUSH 25 mcg Q1H PRN Administration Any pain Furosemide 20 mg 05/28/18 21:00 06/02/18 20:12 Lasix Inj IV.PUSH 20 mg Q12H [facility] Administration Heparin Sodium (Porcine) 0 unit 05/21/18 09:00 06/02/18 08:05 Heparin Central Flush IV.FLUSH Not Given DAILY [facility] Hydralazine HCl 10 mg 05/23/18 00:24 05/28/18 16:12 Apresoline Inj IV.PUSH 10 mg Q1H PRN Administration Sbp>165, Dbp>90 Pantoprazole Sodium 80 mg/ 100 mls @ 10 mls/hr 05/17/18 09:00 06/03/18 00:29 Sodium Chloride IV.CONT 10 mls/hr Q10H [facility] Administration Sodium Chloride 500 mls @ 30 mls/hr 05/18/18 07:00 05/18/18 07:00 Ns Inj IV.SIG Not Given .Q10H [facility] Magnesium Sulfate 2 gm/ Sodium 100 mls @ 50 mls/hr 05/22/18 22:43 05/30/18 08 :00 Chloride IV.SIG Infused UNSCH PRN Infusion For Magnesium 1.2 - 1.6 mg/dL Potassium Chloride 40 meq in 100 mls @ 25 mls/hr 05/22/18 22:43 05/30/18 08: 00 Kcl 40 Meq Premix Inj IV.SIG Infused Q2H PRN Infusion For Potassium 2.8 - 3.2 mEq/L Potassium Chloride 20 meq in 100 mls @ 50 mls/hr 05/22/18 22:43 06/03/18 07: 39 Kcl 20 Meq Premix Inj IV.SIG 50 mls/hr Q2H PRN Administration For Potassium 3.3 - 3.5 mEq/L Potassium Chloride 40 meq in 100 mls @ 25 mls/hr 05/22/18 22:43 05/30/18 08: 00 Kcl 40 Meq Premix Inj IV.SIG Infused UNSCH PRN Infusion For Potassium 3.3 - 3.5 mEq/L Potassium Chloride 20 meq in 100 mls @ 50 mls/hr 05/22/18 22:43 06/02/18 17: 30 Kcl 20 Meq Premix Inj IV.SIG Infused Q2H PRN Infusion For Potassium 2.8 - 3.2 mEq/L Potassium Phosphate 30 mmol/ 260 mls @ 42 mls/hr 05/22/18 22:43 05/23/18 12: 57 Sodium Chloride IV.SIG Infused UNSCH PRN Infusion SEE LABEL COMMENTS Aztreonam 2 gm/ Sodium 100 mls @ 200 mls/hr 05/28/18 10:00 06/03/18 01:40 Chloride IV.SIG Infused Q8H [facility] Infusion Sodium Chloride 38.5 meq/ 1,009.625 mls @ 125 mls/hr 05/31/18 15:00 06/03/18 07:53 Sterile Water IV.CONT 125 mls/hr .Q8H5M [facility] Administration Vancomycin HCl 1,500 mg/ 515 mls @ 250 mls/hr 06/02/18 06:00 06/03/18 06:48 Sodium Chloride IV.SIG 250 mls/hr Q24H [facility] Administration Labetalol HCl 20 mg 05/26/18 07:44 12/05/18 03:30 Trandate Inj IV.PUSH 20 mg Q2H PRN Administration KEEP SBP<160 Lidocaine HCl 2 patch 05/19/18 09:30 06/02/18 08:02 Lidoderm 5% Patch.12 Hr T-DERMAL 2 patch DAILY [facility] Administration Ondansetron HCl 4 mg 05/17/18 06:10 06/03/18 06:15 Zofran Inj IV.PUSH 4 mg Q6H PRN Administration NAUSEA OR VOMITING Patch Removal 1 each 05/19/18 21:00 06/02/18 20:12 Remove Old Patch T-DERMAL 1 each BID [facility] Administration Potassium Bicarb/Potassium Chloride 50 meq 05/22/18 22:43 06/03/18 05:53 K-Lyte Cl Eff PO 50 meq UNSCH PRN Administration For Potassium 3.3 - 3.5 mEq/L Potassium Bicarb/Potassium Chloride 25 meq 05/26/18 21:00 06/02/18 20:12 K-Lyte Cl Eff NG/OG 25 meq BID [facility] Administration Prochlorperazine Edisylate 10 mg 05/17/18 09:06 05/19/18 00:08 Compazine Inj IV.PUSH 10 mg Q6H PRN Administration NAUSEA Senna/Docusate Sodium 1 tab 05/17/18 09:00 06/02/18 20:12 Jessie-Colace PO Not Given BID [facility] Sodium Chloride 0 ml 05/21/18 09:00 06/02/18 08:04 Ns Flush IV.FLUSH 2 ml DAILY [facility] Administration Sodium Chloride 0 ml 05/20/18 16:43 05/26/18 01:39 Ns Flush IV.FLUSH 2 ml PRN PRN Administration FLUSH AFTER USING IV ACCESS Objective Remarks: GENERAL: Awake and alert and appears comfortable SKIN: Warm and dry. HEAD: Normocephalic. EYES: No scleral icterus. No injection or drainage. NECK: Supple, trachea midline. No JVD or lymphadenopathy. LYMPHATIC: No adenopathy. CARDIOVASCULAR: Regular rate and rhythm without murmurs. RESPIRATORY: Breath sounds decreased at bases otherwise unremarkable GASTROINTESTINAL: Abdomen soft, no significant distention. Much better than days ago EXTREMITIES: Trace edema MUSCULOSKELETAL: Poor muscle tone NEUROLOGICAL: No obvious focal deficit. Awake, alert, and oriented x3. PSYCHIATRIC: Awake and alert and can communicate effectively Assessment/Plan - Plan Ms. Perea is a pleasant 82-year-old lady with a history of lung cancer, multifocal amyloidosis, lymphomoplasmacytic disorder and now gastrointestinal bleeding. Plan: 1. Thrombocytopenia: solu-medrol currently 20mg IV daily. Platelets improved and now 103k. Will continue to taper steroids in the next several days. Fortunately we are now at a low dose and it is unlikely to impact healing and infection. If doing well tomorrow will probably move to 15 mg daily. There is no need for any other intervention for her thrombocytopenia.
--- NOTE | 2018-06-03 09:16 | P.PNGS ---
Subjective Interval history: Sitting up in bed Had projective vomiting early this AM after PO potassium given NGT back to TURNER Schrader (daughter) at bedside Physical Exam Vital signs: Vital Signs 06/02/18 09:51 06/02/18 10:00 06/02/18 11:00 Temperature Pulse Rate 103 H 101 H Respiratory Rate 22 Blood Pressure 129/60 124/60 Pulse Oximetry 99 100 06/02/18 11:30 06/02/18 12:00 06/02/18 12:30 Temperature 97.9 F Pulse Rate 104 H 107 H 103 H Respiratory Rate 20 22 Blood Pressure 135/62 141/65 H 130/62 Pulse Oximetry 99 97 100 06/02/18 13:00 06/02/18 13:30 06/02/18 14:00 Temperature Pulse Rate 107 H 101 H 96 H Respiratory Rate 20 20 22 Blood Pressure 134/64 135/62 131/60 Pulse Oximetry 99 99 99 06/02/18 14:30 06/02/18 15:00 06/02/18 15:30 Temperature Pulse Rate 97 H 93 H 96 H Respiratory Rate 20 Blood Pressure 140/64 155/65 H 133/64 Pulse Oximetry 100 99 99 06/02/18 16:00 06/02/18 16:30 06/02/18 17:00 Temperature Pulse Rate 98 H 96 H 92 H Respiratory Rate 22 22 Blood Pressure 144/66 H 149/66 H 143/63 H Pulse Oximetry 99 99 98 06/02/18 17:30 06/02/18 18:00 06/02/18 18:30 Temperature Pulse Rate 94 H 93 H 92 H Respiratory Rate 22 Blood Pressure 149/66 H 153/70 H 143/64 H Pulse Oximetry 99 100 100 06/02/18 19:00 06/02/18 19:30 06/02/18 20:00 Temperature 97.9 F Pulse Rate 93 H 96 H 94 H Respiratory Rate Blood Pressure 149/68 H 158/71 H 167/68 H Pulse Oximetry 100 100 100 06/02/18 20:32 06/02/18 21:00 06/02/18 21:37 Temperature Pulse Rate 93 H 94 H Respiratory Rate 18 Blood Pressure 159/70 H 157/70 H Pulse Oximetry 100 99 06/02/18 22:00 06/02/18 23:00 06/03/18 00:00 Temperature 98 F Pulse Rate 95 H 97 H 99 H Respiratory Rate Blood Pressure 132/60 142/63 H 158/70 H Pulse Oximetry 98 99 98 06/03/18 01:00 06/03/18 02:00 06/03/18 03:00 Temperature Pulse Rate 93 H 96 H 102 H Respiratory Rate Blood Pressure 156/68 H 145/65 H 159/72 H Pulse Oximetry 100 98 99 06/03/18 04:00 06/03/18 05:00 06/03/18 06:00 Temperature 97.6 F Pulse Rate 98 H 103 H 101 H Respiratory Rate Blood Pressure 150/67 H 147/66 H Pulse Oximetry 98 100 100 06/03/18 07:00 06/03/18 08:00 Temperature 97.9 F Pulse Rate 95 H 96 H Respiratory Rate 20 Blood Pressure 148/70 H 147/70 H Pulse Oximetry 98 100 Intake & Output 06/02/18 06/03/18 06/03/18 18:59 06:59 18:59 Intake Total 3834.250 / 3834.250 1820.625 / 3528.336 1998.625 / 1009.625 Output Total 2850 / 2850 3100 / 3100 Balance 984.250 / 984.250 -1279.375 / -6201.003 0101.625 / 1009.625 Weight 75.8 kg Intake: IV 3234.250 / 3234.250 1209.625 / 8937.989 8471.625 / 1009.625 Protonix Inj 80 MG In NS Inj 100 / 100 100 / 100 100 ML @ 10 mls/hr IV.CONT Q10H [facility] Rx#:[id number] Sodium Chloride 23.4% Inj 38.5 2019.250 / 2019.250 1009.625 / 8971.552 6746.625 / 1009.625 MEQ In Sterile Water for Inj 1, 000 ML @ 125 mls/hr IV.CONT . Q8H5M [facility] Rx#:[id number] Azactam Inj 2 GM In NS Inj 100 200 / 200 100 / 100 ML @ 200 mls/hr IV.SIG Q8H [facility] Rx#:[id number] KCl 20 mEq Premix Inj 20 meq In 400 / 400 100 ml @ 50 mls/hr IV.SIG Q2H [facility] Rx#:[id number] Vancomycin Inj 1,500 MG In NS 515 / 515 Inj 500 ML @ 250 mls/hr IV.SIG Q24H [facility] Rx#:[id number] Tube Feeding 600 / 600 511 / 511 Tube Irrigant 100 / 100 Output: Urine 1800 / 1800 Stool 300 / 300 100 / 100 Urine Amount (Catheter) 1300 / 1300 Indwelling Urethral Catheter 1300 / 1300 Gastric Drainage 1250 / 1250 1200 / 1200 Right Nare Nasogastric Tube 1250 / 1250 1200 / 1200 Other: Date of Last Bowel Movement 06/02/18 06/03/18 # Emeses 1 Narrative: Alert and awake Abd: soft; midline dressing changed; mel in place. J tube with TF. Generalized edema resolved - Urinary Catheter Management Indwelling Urethral Catheter Cath placed during this visit: yes Reason for continuing: Hourly intake/output Insertion date: 05/20/18 Insertion time: 19:55 Results - Labs 06/03/18 03:54 06/03/18 03:54 Laboratory Results - last 24 hr 06/02/18 06/03/18 06/03/18 23:49 03:54 03:54 WBC 14.7 H RBC 3.26 L Hgb 9.4 L Hct 29.0 L MCV 89.0 MCH 28.7 MCHC 32.3 RDW 15.3 Plt Count 103 L MPV 10.4 Neut % (Auto) 91.8 H Lymph % (Auto) 4.0 L [place] % (Auto) 2.5 Eos % (Auto) 1.4 Baso % (Auto) 0.3 Neut # (Auto) 13.5 H Lymph # (Auto) 0.6 L [place] # (Auto) 0.4 Eos # (Auto) 0.2 Baso # (Auto) 0.1 WBC Differential . Differential Comment Auto diff final Sodium 146 H Potassium 3.6 3.4 L Chloride 118 H Carbon Dioxide 18.0 L Anion Gap 10 BUN 47 H Creatinine 0.73 Estimated GFR 77 L Random Glucose 111 H Calcium 8.0 L Magnesium 2.2 Total Bilirubin 0.7 AST 48 H ALT 66 H Alkaline Phosphatase 87 Total Protein 5.8 L Albumin 2.6 L - Imaging Imaging: ITS Impressions GI Bleed Scan Nuclear Medicine 05/19/18 00:00 CONCLUSION: 1. 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 Patient was emergently brought to the interventional radiology department from the nuclear medicine department for angiography and intervention. Mesenteric Arteriogram 05/19/18 14:37 CONCLUSION: 1. 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 2. 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 PICC Line Insertion 05/20/18 00:00 CONCLUSION: 1. Uncomplicated central venous Power PICC line placement. 2. The PICC line can be used immediately. Abdomen X-Ray 05/28/18 05:23 CONCLUSION: No dilated bowel loops. Abdomen/Pelvis CT 05/29/18 00:00 CONCLUSION: 1. Since the prior CT, midline laparotomy with gastrojejunostomy has been performed. Anastomosis appears patent. There is a nasogastric tube which extends beyond the site of surgery and is in the first portion of the duodenum. Unchanged metallic structure near the ligament of Treitz, etiology uncertain. 2. A jejunostomy tube has also been placed without evidence of an acute complication. 3. Small, nonspecific free fluid in the pelvic cavity. No evidence of abscess. 4. No acute solid organ abnormality. Cysts of both kidneys and nonobstructing stones of the left kidney are again noted. 5. Sigmoid colon diverticulosis without diverticulitis. Chest CT 05/29/18 11:52 CONCLUSION: 1. 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 2. Pneumonia with volume loss in the right lower lobe. 3. Coronary artery calcification. 4. Emphysema. Gastrografin Study 06/02/18 00:00 CONCLUSION: 1. During the first 30 minutes there was only minimal passage of contrast into the gastrojejunostomy. 2. On the delayed 1 hour film there is apparent contrast noted in the more distal small bowel. Chest X-Ray 06/03/18 06:00 CONCLUSION: No acute cardiopulmonary disease identified. Assessment and Plan - Assessment (1) GI bleed Code(s): K92.2 - Gastrointestinal hemorrhage, unspecified Status: Acute Plan: 82 year old female s/p exploratory laparotomy, gastrojejunostomy, closure, j tube -Continue NGT to LIWS as output still remains high -Tolerating TF at goal of 50 cc/hr -PT/rehab----added OT -Reviewed today's labs with Raciel (daughter) - Plan I personally evaluated the patient room 1309. She was awake and alert and appropriately interactive. She is shared information about her family and her Facebook account. She is frustrated by the recurrent episodes of emesis over the last 2 days. Her nasogastric tube is to lower intermittent wall suction and bilious drainage is coming out. Her lung sounds are clear and equal anteriorly bilaterally. Her chest x-ray looks good. Her abdomen is mildly distended but soft. Her feeding tube exit site is clean, there is no erythema or drainage. Her midline incision is approximated. There is minimal drainage. There is no erythema. Her extremities are less edematous. Her labs were reviewed, her hemoglobin and platelet counts appear stable. Postop gastrojejunostomy with poor gastric emptying through new anastomosis which is widely patent. This is not completely unexpected. Continue current support with nutrition through feeding jejunostomy. Eventually the stomach will empty better. The exam, history, and the medical decision-making described in the above note were completed with the assistance of the mid-level provider. I reviewed and agree with the findings presented. I attest that I had a [id number] encounter with the patient on the same day, and personally performed and documented my assessment and findings in the medical record.
--- NOTE | 2018-06-03 10:17 | P.PNCC ---
Subjective Subjective Remarks/Hospital Course: Hospital Course: 82yF with history of amyloidosis who presented with GI bleeding, hypotension, and severe anemia. originally admitted to the floor. hgb continued to downtrend despite transfusions. today taken for EGD which found blood in the stomach and clot, but no active bleeding. despite this, hgb still did not improve. taken for bleeding scan which was very +. discussed case with Dr. Garcia/Dr. Garland in IR. review of admission CT abd/pelvis demonstrates possible bleeding at duodenal bulb concerning for ulceration. Taken emergently to IR for embolization which appears to be successful. I evaluated the patient upon arrival to the ICU post-IR procedure. she is stable. complaining of hip pain. hgb has improved appropriately. she denies other complaints. she asked me not to look at her groin sites because "my hips hurt and I am tired." Recent evaluation by bedside RN is without hematoma, and this evaluation is deferred at patient's request (bedside RN to continue to monitor for signs of hematoma). remainder of ROS negative. Subjective: 05/20: doing well. complaining of moderate abdominal pain 5/10. receiving iv dilaudid currently. plan for EGD today. hgb dropped from 7.8 to 7.4, but slightly more tachycardic today, and I am worried about ongoing bleeding, although it does appear to be much slower clinically than yesterday. I discussed with GI [facility]E PILER that per my conversation with IR, the lesion may be in the 4th portion of the duodenum near the ligament and it may require further investigation that usual EGD, and possibly push enteroscopy. She stated she would convey to the proceduralist. Dr. Shin suggests type II NSTEMI secondary to anemia and I agree completely with his assessment. Given that she is going soon for repeat EGD with anesthesia, will give 1 additional unit of prbc as she clearly has demonstrated she needs higher hematocrit for oxygen carrying capacity to her known ischemic CAD lesions. 05/21: s/p exploratory laparotomy last night. open abdomen. hgb stable. became acutely hypotensive with increased wound vac output one time today- emergently gave 1 unit prbc and 1 unit plt empirically given sudden change in condition. significant 3rd space losses requiring additional resuscitative efforts. remains deeply sedated. off vasopressors. remains intubated. 05/22: more hemodynamically stable today. hgb stable. still high wound-vac output with 300-500mL/12h. uop remains adequate at 70-80mL/hr, but Cr slightly elevated over baseline. unable to start diuresis yet and clinically although developing anasarca in the tissues, appears intravascularly euvolemic but not overloaded. likely will not tolerate diuresis efforts without significant kidney injury at this present juncture. needs bringback and washout in OR, but will leave timing of this to general surgery. 05/23: Received from operating room in good condition. Abdominal wound closed following gastrojejunostomy. Joseph-Vieira drain in region of the duodenal stump, gastric anastomosis. Nasogastric tube to not be moved, good position in stomach, keep to low intermittent suction. Downstream jejunostomy tube for initiation of trickle feeds. Renal function this morning excellent, follow closely. Chemical ventilation for the next couple of days as we observe tension on the abdominal wall. Meticulously avoid fluid overload. At present she is hypertensive and tachycardic for which we will restart propofol and use boluses of fentanyl as needed. Baseline fentanyl drip is infusing. 05/24: Remains warm and well-perfused overnight. Urine output acceptable at 35- 40 cc/h. Tolerated spontaneous breathing trial well this morning, we keep on vent for another 24-48 hours. Generalized edema persists. 05/25: Intubated sedated heavily. Urine output excellent with Lasix overall 3 L. Currently remains grossly fluid overloaded approximately 20 kg up from admission weight. We will start scheduled Lasix 20 every 8 hours with potassium replacement to facilitate ventilator weaning. 05/26: Sedated, orally intubated on mech vent. Being diuresed. Elevated BP on lightening sedation noted. 05/27: Sedated, orally intubated on mechanical ventilation. Being diuresed. Failed CPAP trial earlier. On Cleviprex for hypertension 05/28: Had episode of emesis last night. NGT remains to suction. Febrile overnight with rising WBCs noted. Sputum culture and UA ordered 05/27, getting blood cultures and starting empiric Abx coverage. Being diuresed. Cleviprex gtt being titrated down. 05/29: Arousable, intubated on mechanical ventilation. Follows commands by nodding, squeezes my fingers on command. Febrile yesterday for which she had cultures sent and was started on empiric antibiotic coverage. Blood cultures 3 out of 4 are growing gram-positive cocci. Her central line and PICC line were discontinued yesterday. 05/30: Sedated, arousable, intubated on mechanical ventilation. Follows commands by nodding and squeezing my fingers. CT chest with right hilar mass near right mainstem bronchus. CT abdomen pelvis with postop changes. Being diuresed to mobilize fluid. Daily CPAP trials. Blood cultures with gram- positive cocci. 05/31: Patient remains intubated off all sedation more awake today wakes up easily follows commands. Urine output adequate, sodium is 159. I have placed her on quarter normal saline and increase the free water flushes. Still receiving Lasix 06/01: Extubated yesterday breathing comfortably tolerating well, though lethargic. Serum sodium coming down now 155 with quarter normal saline. Urine output 1.5 L with IV Lasix 06/02: Patient breathing comfortably more alert today. Communicative denies any distress. Had Gastrografin study today results pending. Sodium improved to 151 with hypotonic saline. Urine output 3 L in 24 hours. Set up in stretcher chair for 3 hours yesterday 06/03: Patient continues to breathe comfortably however had episode of emesis earlier today and nasogastric tube is now to low intermittent suction. Electrolytes normalizing now, will convert back to isotonic crystalloid. Objective Vital Signs / I&O: Vital Signs 06/02/18 11:00 06/02/18 11:30 06/02/18 12:00 Temperature 97.9 F Pulse Rate 101 H 104 H 107 H Respiratory Rate 20 Blood Pressure 124/60 135/62 141/65 H Pulse Oximetry 100 99 97 06/02/18 12:30 06/02/18 13:00 06/02/18 13:30 Temperature Pulse Rate 103 H 107 H 101 H Respiratory Rate 22 20 20 Blood Pressure 130/62 134/64 135/62 Pulse Oximetry 100 99 99 06/02/18 14:00 06/02/18 14:30 06/02/18 15:00 Temperature Pulse Rate 96 H 97 H 93 H Respiratory Rate 22 20 Blood Pressure 131/60 140/64 155/65 H Pulse Oximetry 99 100 99 06/02/18 15:30 06/02/18 16:00 06/02/18 16:30 Temperature Pulse Rate 96 H 98 H 96 H Respiratory Rate 22 Blood Pressure 133/64 144/66 H 149/66 H Pulse Oximetry 99 99 99 06/02/18 17:00 06/02/18 17:30 06/02/18 18:00 Temperature Pulse Rate 92 H 94 H 93 H Respiratory Rate 22 22 Blood Pressure 143/63 H 149/66 H 153/70 H Pulse Oximetry 98 99 100 06/02/18 18:30 06/02/18 19:00 06/02/18 19:30 Temperature Pulse Rate 92 H 93 H 96 H Respiratory Rate Blood Pressure 143/64 H 149/68 H 158/71 H Pulse Oximetry 100 100 100 06/02/18 20:00 06/02/18 20:32 06/02/18 21:00 Temperature 97.9 F Pulse Rate 94 H 93 H 94 H Respiratory Rate Blood Pressure 167/68 H 159/70 H 157/70 H Pulse Oximetry 100 100 99 06/02/18 21:37 06/02/18 22:00 06/02/18 23:00 Temperature Pulse Rate 95 H 97 H Respiratory Rate 18 Blood Pressure 132/60 142/63 H Pulse Oximetry 98 99 06/03/18 00:00 06/03/18 01:00 06/03/18 02:00 Temperature 98 F Pulse Rate 99 H 93 H 96 H Respiratory Rate Blood Pressure 158/70 H 156/68 H 145/65 H Pulse Oximetry 98 100 98 06/03/18 03:00 06/03/18 04:00 06/03/18 05:00 Temperature 97.6 F Pulse Rate 102 H 98 H 103 H Respiratory Rate Blood Pressure 159/72 H 150/67 H 147/66 H Pulse Oximetry 99 98 100 06/03/18 06:00 06/03/18 07:00 06/03/18 08:00 Temperature 97.9 F Pulse Rate 101 H 95 H 96 H Respiratory Rate 20 Blood Pressure 148/70 H 147/70 H Pulse Oximetry 100 98 100 06/03/18 09:00 06/03/18 09:16 06/03/18 09:20 Temperature Pulse Rate 96 H 98 H Respiratory Rate 20 Blood Pressure 154/72 H 136/72 Pulse Oximetry 96 06/03/18 09:28 06/03/18 10:00 Temperature Pulse Rate 99 H Respiratory Rate 18 Blood Pressure 123/60 Pulse Oximetry 100 97 Intake & Output 12/11/18 12/12/18 12/12/18 18:59 06:59 18:59 Intake Total 3834.250 / 3834.250 1820.625 / 1375.661 6265.625 / 1624.625 Output Total 2850 / 2850 3100 / 3100 Balance 984.250 / 984.250 -1279.375 / -8643.523 1578.625 / 1624.625 Weight 75.8 kg Intake: IV 3234.250 / 3234.250 1209.625 / 2053.322 4815.625 / 1624.625 Protonix Inj 80 MG In NS Inj 100 / 100 100 / 100 100 ML @ 10 mls/hr IV.CONT Q10H [facility] Rx#:[id number] Sodium Chloride 23.4% Inj 38.5 2019.250 / 2019.250 1009.625 / 4403.896 1678.625 / 1009.625 MEQ In Sterile Water for Inj 1, 000 ML @ 125 mls/hr IV.CONT . Q8H5M [facility] Rx#:[id number] Azactam Inj 2 GM In NS Inj 100 200 / 200 100 / 100 ML @ 200 mls/hr IV.SIG Q8H [facility] Rx#:[id number] KCl 20 mEq Premix Inj 20 meq In 400 / 400 100 / 100 100 ml @ 50 mls/hr IV.SIG Q2H [facility] Rx#:[id number] Vancomycin Inj 1,500 MG In NS 515 / 515 515 / 515 Inj 500 ML @ 250 mls/hr IV.SIG Q24H [facility] Rx#:[id number] Tube Feeding 600 / 600 511 / 511 Tube Irrigant 100 / 100 Output: Urine 1800 / 1800 Stool 300 / 300 100 / 100 Urine Amount (Catheter) 1300 / 1300 Indwelling Urethral Catheter 1300 / 1300 Gastric Drainage 1250 / 1250 1200 / 1200 Right Nare Nasogastric Tube 1250 / 1250 1200 / 1200 Other: Date of Last Bowel Movement 06/02/18 06/03/18 # Emeses 1 Result Diagrams: 06/03/18 03:54 06/03/18 03:54 Objective Remarks: GENERAL: In no acute distress. HEENT: Normocephalic. Atraumatic. CHEST: Clear bilaterally, normal spontaneous excursions. Air entry diminished at the both bases. CARDIOVASCULAR: Normal S1-S2. Regular normal rate, regular rhythm. No JVD. ABDOMEN: Fascia closed, postsurgical wound intact, abdominal binder in place. Soft, nondistended. Few bowel sounds heard. MUSCULOSKELETAL: Bilateral foot and ankle edema. Warm and well-perfused fingers and toes. DP pulses 2+ bilateral. NEUROLOGICAL: Patient is alert and awake but appears weak. Follows commands x4 appears comfortable no focal deficits. Stronger today. Assessment and Plan - Assessment and Plan Plan: Assessment: 82yF with amyloidosis and active GI bleed. s/p emergent IA embolization 05/19. s/p EGD 05/19 and again 05/20 with ischemia present. s/p emergent exploratory laparotomy with duodenal and jejunal resection, initially left in discontinuity with open abdomen, and now reconstructed with abdominal wall closure. Scheduled Lasix for aggressive diuresis. Quarter normal saline started for hypernatremia Upper GI bleed Acute hypoxic and hypercarbic respiratory failure-resolved s/p emergent ex lap with duodenal and jejunal resection, initially left in discontinuity with open abdomen 05/20 Now reconstructed with abdominal wall closure. Severe acute anemia secondary to blood loss requiring transfusion- persistent duodenal ulcer Type II NSTEMI secondary to demand ischemia from severe anemia s/p EGD 05/19, 05/20. s/p emergent IR embolization 05/19 severe acute thrombocytopenia - ITP improving acute protein calorie malnutrition- moderate to severe Fluid overload sepsis Pneumonia Staph aureus bacteremia Right hilar mass H/o Right lower lobectomy, and adenoca lung Plan: - Extubated 05/31/2018 tolerating well -Hold IV Lasix 20 mg every 12 hours with potassium replacement -Discontinue Quarter normal saline 125 ml per hour for hypernatremia. Start lactated Ringer's with potassium added - Abx with azactam, zyvox, flagyl via G tube. ID following. micafungin added by ID on 05/28. - Blood cultures from 05/28 growing MSSA. Sputum culture Citrobacter and staph aureus - Pulmonary consult requested for right hilar mass on CT chest done on 05/29. Per Dr. Pack's note, daughter Nohemy Davis wants to hold off bronchoscopy. Once better patient can make the decision herself - Labetalol prn, Cardene gtt to keep SBP less than 160mm Hg, Norvasc 5mg via J tube daily - Serial hemoglobin, transfuse to keep hgb > 7 - serially check platelets, transfuse to keep plt > 50k. Tapering solumedrol, decreased to 30mg daily - tube feeds per general surgery, through jejunostomy. NGT to suction. Gastrografin study completed today report pending - Strict intake output, monitor and replete elect lites, follow BUN and creatinine. - ICU electrolyte replacement protocol - SCDs. Subcu heparin when cleared by general surgery/ Heme-onc. Platelet count 92 today 05/28: Discussed with ID, discussed with Dr. James, discussed with patient's daughter at bedside. 05/29: Discussed with ID Dr. Dhillon, discussed with patient's daughter Raciel Conley and updated her regarding current clinical status including plan of care and she voiced understanding and was agreeable. 06/01. D/W and updated daughter Raciel Conley Overall impression: Slowly improving, now extubated, remains weak.
--- NOTE | 2018-06-03 12:46 | P.PNID ---
Subjective Remarks: pt is tolerating TS very confused today doesnot recognise her visitors c/o pain in the lower back - per RN repeat BC negative Antibiotics: azactam vancomycin Allergies/Adverse Reactions: Allergies Sulfa (Sulfonamide Antibiotics) Allergy (Severe, Verified 05/17/18 03:34) Anaphylaxis amoxicillin Allergy (Mild, Verified 05/17/18 03:34) nausea codeine Allergy (Mild, Verified 05/17/18 03:34) constipation Objective Vital Signs 06/02/18 13:00 06/02/18 13:30 06/02/18 14:00 Temperature Pulse Rate 107 H 101 H 96 H Respiratory Rate 20 20 22 Blood Pressure 134/64 135/62 131/60 Pulse Oximetry 99 99 99 06/02/18 14:30 06/02/18 15:00 06/02/18 15:30 Temperature Pulse Rate 97 H 93 H 96 H Respiratory Rate 20 Blood Pressure 140/64 155/65 H 133/64 Pulse Oximetry 100 99 99 06/02/18 16:00 06/02/18 16:30 06/02/18 17:00 Temperature Pulse Rate 98 H 96 H 92 H Respiratory Rate 22 22 Blood Pressure 144/66 H 149/66 H 143/63 H Pulse Oximetry 99 99 98 06/02/18 17:30 06/02/18 18:00 06/02/18 18:30 Temperature Pulse Rate 94 H 93 H 92 H Respiratory Rate 22 Blood Pressure 149/66 H 153/70 H 143/64 H Pulse Oximetry 99 100 100 06/02/18 19:00 06/02/18 19:30 06/02/18 20:00 Temperature 97.9 F Pulse Rate 93 H 96 H 94 H Respiratory Rate Blood Pressure 149/68 H 158/71 H 167/68 H Pulse Oximetry 100 100 100 06/02/18 20:32 06/02/18 21:00 06/02/18 21:37 Temperature Pulse Rate 93 H 94 H Respiratory Rate 18 Blood Pressure 159/70 H 157/70 H Pulse Oximetry 100 99 06/02/18 22:00 06/02/18 23:00 06/03/18 00:00 Temperature 98 F Pulse Rate 95 H 97 H 99 H Respiratory Rate Blood Pressure 132/60 142/63 H 158/70 H Pulse Oximetry 98 99 98 06/03/18 01:00 06/03/18 02:00 06/03/18 03:00 Temperature Pulse Rate 93 H 96 H 102 H Respiratory Rate Blood Pressure 156/68 H 145/65 H 159/72 H Pulse Oximetry 100 98 99 06/03/18 04:00 06/03/18 05:00 06/03/18 06:00 Temperature 97.6 F Pulse Rate 98 H 103 H 101 H Respiratory Rate Blood Pressure 150/67 H 147/66 H Pulse Oximetry 98 100 100 06/03/18 07:00 06/03/18 08:00 06/03/18 09:00 Temperature 97.9 F Pulse Rate 95 H 96 H 96 H Respiratory Rate 20 20 Blood Pressure 148/70 H 147/70 H 154/72 H Pulse Oximetry 98 100 96 06/03/18 09:16 06/03/18 09:20 06/03/18 09:28 Temperature Pulse Rate 98 H Respiratory Rate Blood Pressure 136/72 Pulse Oximetry 100 06/03/18 10:00 06/03/18 11:00 Temperature Pulse Rate 99 H 102 H Respiratory Rate 18 Blood Pressure 123/60 132/62 Pulse Oximetry 97 96 Intake & Output 06/02/18 06/03/18 06/03/18 18:59 06:59 18:59 Intake Total 3834.250 / 3834.250 1820.625 / 7227.260 2593.625 / 1724.625 Output Total 2850 / 2850 3100 / 3100 Balance 984.250 / 984.250 -1279.375 / -5686.704 5485.625 / 1724.625 Weight 75.8 kg Intake: IV 3234.250 / 3234.250 1209.625 / 9959.389 1799.625 / 1724.625 Protonix Inj 80 MG In NS Inj 100 / 100 100 / 100 100 / 100 100 ML @ 10 mls/hr IV.CONT Q10H [facility] Rx#:[id number] Sodium Chloride 23.4% Inj 38.5 2019.250 / 2019.250 1009.625 / 5688.285 9465.625 / 1009.625 MEQ In Sterile Water for Inj 1, 000 ML @ 125 mls/hr IV.CONT . Q8H5M [facility] Rx#:[id number] Azactam Inj 2 GM In NS Inj 100 200 / 200 100 / 100 ML @ 200 mls/hr IV.SIG Q8H [facility] Rx#:[id number] KCl 20 mEq Premix Inj 20 meq In 400 / 400 100 / 100 100 ml @ 50 mls/hr IV.SIG Q2H PRN Rx#:[id number] Vancomycin Inj 1,500 MG In NS 515 / 515 515 / 515 Inj 500 ML @ 250 mls/hr IV.SIG Q24H [facility] Rx#:[id number] Tube Feeding 600 / 600 511 / 511 Tube Irrigant 100 / 100 Output: Urine 1800 / 1800 Stool 300 / 300 100 / 100 Urine Amount (Catheter) 1300 / 1300 Indwelling Urethral Catheter 1300 / 1300 Gastric Drainage 1250 / 1250 1200 / 1200 Right Nare Nasogastric Tube 1250 / 1250 1200 / 1200 Other: Date of Last Bowel Movement 06/02/18 06/03/18 # Emeses 1 06/01/18 10:43 Blood - Peripheral Aerobic Blood Culture - Preliminary No growth in 2 days 06/01/18 10:43 Blood - Peripheral Anaerobic Blood Culture - Preliminary No growth in 2 days 06/01/18 10:48 Blood - Peripheral Aerobic Blood Culture - Preliminary No growth in 2 days 06/01/18 10:48 Blood - Peripheral Anaerobic Blood Culture - Preliminary No growth in 2 days 05/28/18 10:33 Blood - Peripheral Aerobic Blood Culture - Final Staphylococcus aureus 05/28/18 10:33 Blood - Peripheral Anaerobic Blood Culture - Final Staphylococcus aureus 05/28/18 10:27 Blood - Peripheral Aerobic Blood Culture - Final Staphylococcus aureus 05/28/18 10:27 Blood - Peripheral Anaerobic Blood Culture - Final Staphylococcus aureus Lab - Hematology Results 06/02/18 06/03/18 03:51 03:54 WBC 14.9 H 14.7 H RBC 3.07 L 3.26 L Hgb 9.0 L 9.4 L Hct 27.4 L 29.0 L MCV 89.2 89.0 MCH 29.3 28.7 MCHC 32.8 32.3 RDW 15.4 15.3 Plt Count 92 L 103 L MPV 10.4 10.4 Prelim Diff (Auto) Slide review pending Neut % (Auto) 92.1 H 91.8 H Lymph % (Auto) 3.9 L 4.0 L [place] % (Auto) 2.6 2.5 Eos % (Auto) 1.0 1.4 Baso % (Auto) 0.4 0.3 Neut # (Auto) 13.7 H 13.5 H Lymph # (Auto) 0.6 L 0.6 L [place] # (Auto) 0.4 0.4 Eos # (Auto) 0.1 0.2 Baso # (Auto) 0.1 0.1 WBC Differential . . Diff Scan Auto diff confirmed Differential Comment . Auto diff final Platelet Estimate Low L Platelet Morphology Normal Lab - Chemistry Results 06/02/18 06/02/18 06/03/18 03:51 23:49 03:54 Sodium 151 H 146 H Potassium 3.2 L 3.6 3.4 L Chloride 121 H 118 H Carbon Dioxide 17.4 L 18.0 L Anion Gap 13 10 BUN 52 H 47 H Creatinine 0.82 0.73 Estimated GFR 67 L 77 L Random Glucose 108 H 111 H Calcium 7.5 L 8.0 L Magnesium 2.3 2.2 Total Bilirubin 0.5 0.7 AST 27 48 H ALT 56 H 66 H Alkaline Phosphatase 78 87 Total Protein 5.5 L D 5.8 L Albumin 2.3 L 2.6 L Imaging: ITS Impressions GI Bleed Scan Nuclear Medicine 05/19/18 00:00 CONCLUSION: 1. 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 Patient was emergently brought to the interventional radiology department from the nuclear medicine department for angiography and intervention. Mesenteric Arteriogram 05/19/18 14:37 CONCLUSION: 1. 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 2. 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 PICC Line Insertion 05/20/18 00:00 CONCLUSION: 1. Uncomplicated central venous Power PICC line placement. 2. The PICC line can be used immediately. Abdomen X-Ray 05/28/18 05:23 CONCLUSION: No dilated bowel loops. Abdomen/Pelvis CT 05/29/18 00:00 CONCLUSION: 1. Since the prior CT, midline laparotomy with gastrojejunostomy has been performed. Anastomosis appears patent. There is a nasogastric tube which extends beyond the site of surgery and is in the first portion of the duodenum. Unchanged metallic structure near the ligament of Treitz, etiology uncertain. 2. A jejunostomy tube has also been placed without evidence of an acute complication. 3. Small, nonspecific free fluid in the pelvic cavity. No evidence of abscess. 4. No acute solid organ abnormality. Cysts of both kidneys and nonobstructing stones of the left kidney are again noted. 5. Sigmoid colon diverticulosis without diverticulitis. Chest CT 05/29/18 11:52 CONCLUSION: 1. 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 2. Pneumonia with volume loss in the right lower lobe. 3. Coronary artery calcification. 4. Emphysema. Gastrografin Study 06/02/18 00:00 CONCLUSION: 1. During the first 30 minutes there was only minimal passage of contrast into the gastrojejunostomy. 2. On the delayed 1 hour film there is apparent contrast noted in the more distal small bowel. Chest X-Ray 06/03/18 06:00 CONCLUSION: No acute cardiopulmonary disease identified. Physical Exam: GENERAL: NAD SKIN: Warm and dry. HEAD: Atraumatic. Normocephalic. EYES: Pupils equal and round. No scleral icterus. No injection or drainage. ENT: No nasal bleeding or discharge. Mucous membranes pink and moist. NECK: Trachea midline. No JVD. CARDIOVASCULAR: Regular rate and rhythm. RESPIRATORY: No accessory muscle use. Clear to auscultation. Breath sounds equal bilaterally. GASTROINTESTINAL: Abdomen soft, tender, quite distended. surgre dressing in place DAKOTA drain in LLQ with serosaung d/c MUSCULOSKELETAL: Extremities without clubbing, cyanosis, or edema. No obvious deformities. NEUROLOGICAL: awake, opens eyes, follows commands confused PSYCHIATRIC: calm , cooperative Assessment and Plan - Plan GI bleeding POD3 exploratory laparotomy, gastrojejunostomy, closure, j tube Acute VDRF - resolved fever, leukocytosis - resolved Ileus ? Intraabdominal HIgh grade MSSA bacteremia ? source 3.3 cm masslike opacity in the right hilum with RLL consolidation Last CXR is clear cont vancomycin for MSSA bacteremia will dc azactam IVAN only if more + bl clx pt is a a candidate for IVAN per Dr Bynum MR L back if cont to c/o pain Likely will need at least 4 weeks of tx for MSSA dw RN yoni James
[2018-06-04] MEDS: fentaNYL Citrate Inj 100 MCG/2 ML Ampul IV.PUSH PRN ×4 (00:42→23:00)
[2018-06-04 05:48] LABS: Baso % (Auto) 0.2 % (0.0-2.0); Eos # (Auto) 0.2 th/mm3 (0.0-0.4); Eos % (Auto) 1.2 % (0.0-4.0); Hematocrit 26.2 % (35.0-46.0); Hemoglobin 8.7 gm/dL (11.6-15.3); Lymph # (Auto) 0.5 th/mm3 (1.0-4.8); Lymph % (Auto) 3.8 % (9.0-44.0); Mean Corpuscular HGB Conc 33.4 % (32.0-36.0); Mean Corpuscular Hemoglobin 29.1 pg (27.0-34.0); Mean Corpuscular Volume 87.1 fL (80.0-100.0); Mean Platelet Volume 10.3 fL (7.0-11.0); Mono # (Auto) 0.5 th/mm3 (0.0-0.9); Mono % (Auto) 3.4 % (0.0-8.0); Neut # (Auto) 12.8 th/mm3 (1.8-7.7); Neut % (Auto) 91.4 % (16.0-70.0); Platelet Count 111 th/mm3 (150-450); Red Cell Distribution Width 14.9 % (11.6-17.2)
[2018-06-04 06:02] LABS: Calcium 8.4 mg/dL (8.5-10.1); Carbon Dioxide 17.1 meq/L (21.0-32.0); Potassium 3.4 meq/L (3.5-5.1)
[2018-06-04] MEDS: Pantoprazole Inj 80 MG in Sodium Chlor 0.9% Inj 100 ML IV.CONT SCH ×3 (06:28→19:59)
[2018-06-04] MEDS: Vancomycin Inj 1,500 MG in Sodium Chlor 0.9% Inj 500 ML IV.SIG SCH (06:29)
--- NOTE | 2018-06-04 08:19 | P.PNCC ---
Subjective Subjective Remarks/Hospital Course: Hospital Course: 82yF with history of amyloidosis who presented with GI bleeding, hypotension, and severe anemia. originally admitted to the floor. hgb continued to downtrend despite transfusions. today taken for EGD which found blood in the stomach and clot, but no active bleeding. despite this, hgb still did not improve. taken for bleeding scan which was very +. discussed case with Dr. Garcia/Dr. Garland in IR. review of admission CT abd/pelvis demonstrates possible bleeding at duodenal bulb concerning for ulceration. Taken emergently to IR for embolization which appears to be successful. I evaluated the patient upon arrival to the ICU post-IR procedure. she is stable. complaining of hip pain. hgb has improved appropriately. she denies other complaints. she asked me not to look at her groin sites because "my hips hurt and I am tired." Recent evaluation by bedside RN is without hematoma, and this evaluation is deferred at patient's request (bedside RN to continue to monitor for signs of hematoma). remainder of ROS negative. Subjective: 05/20: doing well. complaining of moderate abdominal pain 5/10. receiving iv dilaudid currently. plan for EGD today. hgb dropped from 7.8 to 7.4, but slightly more tachycardic today, and I am worried about ongoing bleeding, although it does appear to be much slower clinically than yesterday. I discussed with GI CLAIM PROFESSIONAL that per my conversation with IR, the lesion may be in the 4th portion of the duodenum near the ligament and it may require further investigation that usual EGD, and possibly push enteroscopy. She stated she would convey to the proceduralist. Dr. Shin suggests type II NSTEMI secondary to anemia and I agree completely with his assessment. Given that she is going soon for repeat EGD with anesthesia, will give 1 additional unit of prbc as she clearly has demonstrated she needs higher hematocrit for oxygen carrying capacity to her known ischemic CAD lesions. 05/21: s/p exploratory laparotomy last night. open abdomen. hgb stable. became acutely hypotensive with increased wound vac output one time today- emergently gave 1 unit prbc and 1 unit plt empirically given sudden change in condition. significant 3rd space losses requiring additional resuscitative efforts. remains deeply sedated. off vasopressors. remains intubated. 05/22: more hemodynamically stable today. hgb stable. still high wound-vac output with 300-500mL/12h. uop remains adequate at 70-80mL/hr, but Cr slightly elevated over baseline. unable to start diuresis yet and clinically although developing anasarca in the tissues, appears intravascularly euvolemic but not overloaded. likely will not tolerate diuresis efforts without significant kidney injury at this present juncture. needs bringback and washout in OR, but will leave timing of this to general surgery. 05/23: Received from operating room in good condition. Abdominal wound closed following gastrojejunostomy. Joseph-Vieira drain in region of the duodenal stump, gastric anastomosis. Nasogastric tube to not be moved, good position in stomach, keep to low intermittent suction. Downstream jejunostomy tube for initiation of trickle feeds. Renal function this morning excellent, follow closely. Chemical ventilation for the next couple of days as we observe tension on the abdominal wall. Meticulously avoid fluid overload. At present she is hypertensive and tachycardic for which we will restart propofol and use boluses of fentanyl as needed. Baseline fentanyl drip is infusing. 05/24: Remains warm and well-perfused overnight. Urine output acceptable at 35- 40 cc/h. Tolerated spontaneous breathing trial well this morning, we keep on vent for another 24-48 hours. Generalized edema persists. 05/25: Intubated sedated heavily. Urine output excellent with Lasix overall 3 L. Currently remains grossly fluid overloaded approximately 20 kg up from admission weight. We will start scheduled Lasix 20 every 8 hours with potassium replacement to facilitate ventilator weaning. 05/26: Sedated, orally intubated on mech vent. Being diuresed. Elevated BP on lightening sedation noted. 05/27: Sedated, orally intubated on mechanical ventilation. Being diuresed. Failed CPAP trial earlier. On Cleviprex for hypertension 05/28: Had episode of emesis last night. NGT remains to suction. Febrile overnight with rising WBCs noted. Sputum culture and UA ordered 05/27, getting blood cultures and starting empiric Abx coverage. Being diuresed. Cleviprex gtt being titrated down. 05/29: Arousable, intubated on mechanical ventilation. Follows commands by nodding, squeezes my fingers on command. Febrile yesterday for which she had cultures sent and was started on empiric antibiotic coverage. Blood cultures 3 out of 4 are growing gram-positive cocci. Her central line and PICC line were discontinued yesterday. 05/30: Sedated, arousable, intubated on mechanical ventilation. Follows commands by nodding and squeezing my fingers. CT chest with right hilar mass near right mainstem bronchus. CT abdomen pelvis with postop changes. Being diuresed to mobilize fluid. Daily CPAP trials. Blood cultures with gram- positive cocci. 05/31: Patient remains intubated off all sedation more awake today wakes up easily follows commands. Urine output adequate, sodium is 159. I have placed her on quarter normal saline and increase the free water flushes. Still receiving Lasix 06/01: Extubated yesterday breathing comfortably tolerating well, though lethargic. Serum sodium coming down now 155 with quarter normal saline. Urine output 1.5 L with IV Lasix 06/02: Patient breathing comfortably more alert today. Communicative denies any distress. Had Gastrografin study today results pending. Sodium improved to 151 with hypotonic saline. Urine output 3 L in 24 hours. Set up in stretcher chair for 3 hours yesterday 06/03: Patient continues to breathe comfortably however had episode of emesis earlier today and nasogastric tube is now to low intermittent suction. Electrolytes normalizing now, will convert back to isotonic crystalloid. 06/04: Frequent vomiting persists. Tube feedings delivered through jejunostomy tube appear to be tolerated. Prerenal azotemia persists, exacerbated by GI fluid losses. We will need to hold Lasix for now. Her breathing is remarkably comfortable. Objective Vital Signs / I&O: Vital Signs 06/03/18 09:00 06/03/18 09:16 06/03/18 09:20 Temperature Pulse Rate 96 H 98 H Respiratory Rate 20 Blood Pressure 154/72 H 136/72 Pulse Oximetry 96 06/03/18 09:28 06/03/18 10:00 06/03/18 11:00 Temperature Pulse Rate 99 H 102 H Respiratory Rate 18 Blood Pressure 123/60 132/62 Pulse Oximetry 100 97 96 06/03/18 12:00 06/03/18 13:00 06/03/18 14:00 Temperature 97.8 F Pulse Rate 94 H 95 H 93 H Respiratory Rate 20 22 18 Blood Pressure 137/65 154/69 H 139/65 Pulse Oximetry 99 100 100 06/03/18 15:00 06/03/18 16:00 06/03/18 17:00 Temperature 97.9 F Pulse Rate 97 H 97 H 100 H Respiratory Rate 20 18 20 Blood Pressure 140/63 140/61 143/65 H Pulse Oximetry 99 100 100 06/03/18 18:00 06/03/18 19:00 06/03/18 19:31 Temperature Pulse Rate 96 H 95 H Respiratory Rate 22 Blood Pressure 140/64 133/60 Pulse Oximetry 98 100 100 06/03/18 20:00 06/03/18 21:00 06/03/18 21:51 Temperature 98.1 F Pulse Rate 98 H 97 H Respiratory Rate 16 Blood Pressure 140/63 136/60 Pulse Oximetry 99 98 06/03/18 22:00 06/03/18 23:00 06/04/18 00:00 Temperature 98.7 F Pulse Rate 103 H 102 H 103 H Respiratory Rate Blood Pressure 150/69 H 135/62 131/63 Pulse Oximetry 97 98 98 06/04/18 01:00 06/04/18 01:12 06/04/18 02:00 Temperature Pulse Rate 104 H 106 H Respiratory Rate 14 Blood Pressure 127/54 L 109/57 L Pulse Oximetry 97 98 06/04/18 03:00 06/04/18 03:49 06/04/18 04:00 Temperature Pulse Rate 114 H 103 H Respiratory Rate 18 Blood Pressure 128/60 115/55 L Pulse Oximetry 98 98 06/04/18 05:00 06/04/18 05:53 06/04/18 06:00 Temperature Pulse Rate 106 H 103 H 102 H Respiratory Rate Blood Pressure 131/62 134/63 Pulse Oximetry 95 96 06/04/18 07:00 Temperature Pulse Rate 100 H Respiratory Rate Blood Pressure Pulse Oximetry 98 Intake & Output 06/03/18 06/04/18 06/04/18 18:59 06:59 18:59 Intake Total 3123.250 / 3123.250 1847 / 1847 Output Total 2450 / 2450 1825 / 1825 Balance 673.250 / 673.250 Intake: IV 2598.250 / 2598.250 1210 / 1210 Protonix Inj 80 MG In NS Inj 100 / 100 200 / 200 100 ML @ 10 mls/hr IV.CONT Q10H [facility] Rx#:[id number] KCl Inj 20 MEQ In LR 1000 mL 1010 / 1010 Inj 1,000 ML @ 80 mls/hr IV. CONT .[id number] [facility] Rx#:[id number] Sodium Chloride 23.4% Inj 38.5 1683.250 / 1683.250 MEQ In Sterile Water for Inj 1, 000 ML @ 125 mls/hr IV.CONT . Q8H5M [facility] Rx#:[id number] Azactam Inj 2 GM In NS Inj 100 100 / 100 ML @ 200 mls/hr IV.SIG Q8H [facility] Rx#:[id number] KCl 20 mEq Premix Inj 20 meq In 200 / 200 100 ml @ 50 mls/hr IV.SIG Q2H [facility] Rx#:[id number] Vancomycin Inj 1,500 MG In NS 515 / 515 Inj 500 ML @ 250 mls/hr IV.SIG Q24H [facility] Rx#:[id number] Tube Feeding 505 / 505 637 / 637 Water Bolus Amount 20 / 20 Output: Stool 500 / 500 25 / 25 Urine Amount (Catheter) 1450 / 1450 1250 / 1250 Indwelling Urethral Catheter 1450 / 1450 1250 / 1250 Gastric Drainage 500 / 500 550 / 550 Right Nare Nasogastric Tube 500 / 500 550 / 550 Result Diagrams: 06/04/18 04:41 06/04/18 04:41 Objective Remarks: GENERAL: In no acute distress. Oriented and conversant. HEENT: Normocephalic. Atraumatic. CHEST: Clear bilaterally, normal spontaneous excursions. Decreased breath sounds both bases. CARDIOVASCULAR: Normal S1-S2. Regular normal rate and rhythm. No JVD. ABDOMEN: Fascia closed, postsurgical wound intact, abdominal binder in place. Soft, nondistended. Bowel sounds present. MUSCULOSKELETAL: Bilateral foot and ankle edema. Warm and well-perfused fingers and toes. DP pulses palpable. NEUROLOGICAL: Patient is alert and awake. Follows commands x4 appears comfortable no focal deficits. Thirsty. Assessment and Plan - Assessment and Plan Plan: Assessment: 82yF with amyloidosis and active GI bleed. s/p emergent IA embolization 05/19. s/p EGD 05/19 and again 05/20 with ischemia present. s/p emergent exploratory laparotomy with duodenal and jejunal resection, initially left in discontinuity with open abdomen, and now reconstructed with abdominal wall closure. Scheduled Lasix for aggressive diuresis. Quarter normal saline started for hypernatremia Upper GI bleed Acute hypoxic and hypercarbic respiratory failure-resolved s/p emergent ex lap with duodenal and jejunal resection, initially left in discontinuity with open abdomen 05/20 Now reconstructed with abdominal wall closure. Severe acute anemia secondary to blood loss requiring transfusion- persistent duodenal ulcer Type II NSTEMI secondary to demand ischemia from severe anemia s/p EGD 05/19, 05/20. s/p emergent IR embolization 05/19 severe acute thrombocytopenia - ITP improving acute protein calorie malnutrition- moderate to severe Fluid overload sepsis Pneumonia Staph aureus bacteremia Right hilar mass H/o Right lower lobectomy, and adenoca lung Plan: - Extubated 05/31/2018 tolerating well. - Hold IV Lasix 20 mg every 12 hours with potassium replacement -Continue lactated Ringer's with potassium added - Abx with azactam, zyvox, flagyl via G tube. ID following. micafungin added by ID on 05/28. - Blood cultures from 05/28 growing MSSA. Sputum culture Citrobacter and staph aureus - Pulmonary consult requested for right hilar mass on CT chest done on 05/29. Per Dr. Pack's note, daughter Nohemy Davis wants to hold off bronchoscopy. Once better patient can make the decision herself - Labetalol prn, Cardene gtt to keep SBP less than 160mm Hg, Norvasc 5mg via J tube daily - Serial hemoglobin, transfuse to keep hgb > 7 - serially check platelets, transfuse to keep plt > 50k. Tapering solumedrol, platelets remain acceptable. - tube feeds per general surgery, through jejunostomy. NGT to suction. Gastrografin study completed today report pending - Strict intake output, monitor and replete elect lytes, follow BUN and creatinine. - ICU electrolyte replacement protocol - SCDs. Subcu heparin when cleared by general surgery/ Heme-onc. Platelet count 92 today Overall impression: Slowly improving, now extubated and breathing comfortably, remains weak. Source of bacteremia remains unclear.
[2018-06-04] MEDS: Potassium Chlor 20 mEq Premix 20 MEQ/100 ML PIGGYBACK IV.SIG PRN ×2 (09:17→14:03)
[2018-06-04] MEDS: Lidocaine 5% Patch T-DERMAL SCH (09:17)
[2018-06-04] MEDS: Heparin Central Flush 100 UNIT/ML 5 ML Vial IV.FLUSH SCH (09:18)
[2018-06-04] MEDS: Artificial Tears Opth Oint 3.5 GM Tube EACH EYE SCH ×2 (09:18→20:22)
[2018-06-04] MEDS: Potassium Chloride 25 MEQ Effervescent Tablet NG/OG SCH ×2 (09:18→20:22)
[2018-06-04] MEDS: amLODIPine 5 MG Tablet J-TUBE SCH (09:19)
[2018-06-04] MEDS: Senna/Docusate Sodium 8.6/50 MG Tablet PO SCH ×2 (09:20→20:22)
[2018-06-04] MEDS: MethylPREDNISolone Sod Succinate Inj 40 MG/ML Vial IV.PUSH SCH (09:22)
--- NOTE | 2018-06-04 10:20 | P.PNGS ---
Subjective Interval history: Resting in bed Had episode of emesis this AM Daughter Raciel at bedside Physical Exam Vital signs: Vital Signs 06/03/18 11:00 06/03/18 12:00 06/03/18 13:00 Temperature 97.8 F Pulse Rate 102 H 94 H 95 H Respiratory Rate 20 22 Blood Pressure 132/62 137/65 154/69 H Pulse Oximetry 96 99 100 06/03/18 14:00 06/03/18 15:00 06/03/18 16:00 Temperature 97.9 F Pulse Rate 93 H 97 H 97 H Respiratory Rate 18 20 18 Blood Pressure 139/65 140/63 140/61 Pulse Oximetry 100 99 100 06/03/18 17:00 06/03/18 18:00 06/03/18 19:00 Temperature Pulse Rate 100 H 96 H 95 H Respiratory Rate 20 22 Blood Pressure 143/65 H 140/64 133/60 Pulse Oximetry 100 98 100 06/03/18 19:31 06/03/18 20:00 06/03/18 21:00 Temperature 98.1 F Pulse Rate 98 H 97 H Respiratory Rate Blood Pressure 140/63 136/60 Pulse Oximetry 100 99 98 06/03/18 21:51 06/03/18 22:00 06/03/18 23:00 Temperature Pulse Rate 103 H 102 H Respiratory Rate 16 Blood Pressure 150/69 H 135/62 Pulse Oximetry 97 98 06/04/18 00:00 06/04/18 01:00 06/04/18 01:12 Temperature 98.7 F Pulse Rate 103 H 104 H Respiratory Rate 14 Blood Pressure 131/63 127/54 L Pulse Oximetry 98 97 06/04/18 02:00 06/04/18 03:00 06/04/18 03:49 Temperature Pulse Rate 106 H 114 H Respiratory Rate 18 Blood Pressure 109/57 L 128/60 Pulse Oximetry 98 98 06/04/18 04:00 06/04/18 05:00 06/04/18 05:53 Temperature Pulse Rate 103 H 106 H 103 H Respiratory Rate Blood Pressure 115/55 L 131/62 Pulse Oximetry 98 95 06/04/18 06:00 06/04/18 07:00 06/04/18 07:55 Temperature Pulse Rate 102 H 100 H 99 H Respiratory Rate Blood Pressure 134/63 128/58 L Pulse Oximetry 96 98 97 06/04/18 08:00 06/04/18 09:00 Temperature 98.2 F Pulse Rate 100 H 102 H Respiratory Rate Blood Pressure 133/60 136/64 Pulse Oximetry 96 97 Intake & Output 06/03/18 06/04/18 06/04/18 18:59 06:59 18:59 Intake Total 3123.250 / 3123.250 1847 / 1847 515 / 515 Output Total 2450 / 2450 1825 / 1825 Balance 673.250 / 673.250 515 / 515 Intake: IV 2598.250 / 2598.250 1210 / 1210 515 / 515 Protonix Inj 80 MG In NS Inj 100 / 100 200 / 200 100 ML @ 10 mls/hr IV.CONT Q10H [facility] Rx#:[id number] KCl Inj 20 MEQ In LR 1000 mL 1010 / 1010 Inj 1,000 ML @ 80 mls/hr IV. CONT .[id number] [facility] Rx#:[id number] Sodium Chloride 23.4% Inj 38.5 1683.250 / 1683.250 MEQ In Sterile Water for Inj 1, 000 ML @ 125 mls/hr IV.CONT . Q8H5M [facility] Rx#:[id number] Azactam Inj 2 GM In NS Inj 100 100 / 100 ML @ 200 mls/hr IV.SIG Q8H [facility] Rx#:[id number] KCl 20 mEq Premix Inj 20 meq In 200 / 200 100 ml @ 50 mls/hr IV.SIG Q2H [facility] Rx#:[id number] Vancomycin Inj 1,500 MG In NS 515 / 515 515 / 515 Inj 500 ML @ 250 mls/hr IV.SIG Q24H [facility] Rx#:[id number] Tube Feeding 505 / 505 637 / 637 Water Bolus Amount 20 / 20 Output: Stool 500 / 500 25 / 25 Urine Amount (Catheter) 1450 / 1450 1250 / 1250 Indwelling Urethral Catheter 1450 / 1450 1250 / 1250 Gastric Drainage 500 / 500 550 / 550 Right Nare Nasogastric Tube 500 / 500 550 / 550 Narrative: Alert and awake Abd: soft; midline incision with mel--- dressing changes; J tube with TF NGT to LIWS with bilious drainage - Urinary Catheter Management Indwelling Urethral Catheter Cath placed during this visit: yes Reason for continuing: Acute urinary retention Insertion date: 05/20/18 Insertion time: 19:55 Results - Labs 06/04/18 04:41 06/04/18 04:41 Laboratory Results - last 24 hr 06/03/18 06/04/18 06/04/18 15:00 04:41 04:41 WBC 14.0 H RBC 3.00 L Hgb 8.7 L Hct 26.2 L MCV 87.1 MCH 29.1 MCHC 33.4 RDW 14.9 Plt Count 111 L MPV 10.3 Neut % (Auto) 91.4 H Lymph % (Auto) 3.8 L [place] % (Auto) 3.4 Eos % (Auto) 1.2 Baso % (Auto) 0.2 Neut # (Auto) 12.8 H Lymph # (Auto) 0.5 L [place] # (Auto) 0.5 Eos # (Auto) 0.2 Baso # (Auto) 0.0 WBC Differential . Differential Comment Auto diff final Sodium 148 H Potassium 4.1 3.4 L Chloride 121 H Carbon Dioxide 17.1 L Anion Gap 10 BUN 48 H Creatinine 0.80 Estimated GFR 69 L Random Glucose 118 H Calcium 8.4 L - Imaging Imaging: ITS Impressions GI Bleed Scan Nuclear Medicine 05/19/18 00:00 CONCLUSION: 1. 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 Patient was emergently brought to the interventional radiology department from the nuclear medicine department for angiography and intervention. Mesenteric Arteriogram 05/19/18 14:37 CONCLUSION: 1. 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 2. 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 PICC Line Insertion 05/20/18 00:00 CONCLUSION: 1. Uncomplicated central venous Power PICC line placement. 2. The PICC line can be used immediately. Abdomen X-Ray 05/28/18 05:23 CONCLUSION: No dilated bowel loops. Abdomen/Pelvis CT 05/29/18 00:00 CONCLUSION: 1. Since the prior CT, midline laparotomy with gastrojejunostomy has been performed. Anastomosis appears patent. There is a nasogastric tube which extends beyond the site of surgery and is in the first portion of the duodenum. Unchanged metallic structure near the ligament of Treitz, etiology uncertain. 2. A jejunostomy tube has also been placed without evidence of an acute complication. 3. Small, nonspecific free fluid in the pelvic cavity. No evidence of abscess. 4. No acute solid organ abnormality. Cysts of both kidneys and nonobstructing stones of the left kidney are again noted. 5. Sigmoid colon diverticulosis without diverticulitis. Chest CT 05/29/18 11:52 CONCLUSION: 1. 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 2. Pneumonia with volume loss in the right lower lobe. 3. Coronary artery calcification. 4. Emphysema. Gastrografin Study 06/02/18 00:00 CONCLUSION: 1. During the first 30 minutes there was only minimal passage of contrast into the gastrojejunostomy. 2. On the delayed 1 hour film there is apparent contrast noted in the more distal small bowel. Chest X-Ray 06/03/18 06:00 CONCLUSION: No acute cardiopulmonary disease identified. Assessment and Plan - Assessment (1) GI bleed Code(s): K92.2 - Gastrointestinal hemorrhage, unspecified Status: Acute Plan: 82 year old female s/p exploratory laparotomy, gastrojejunostomy, closure, j tube -Continue NGT to LIWS as output still remains high -No meds through NGT at this time -Tolerating TF at goal of 50 cc/hr -PT/rehab----added OT - Plan Personally evaluated the patient in room 1309 this afternoon. Nursing reports she had emesis before 7 AM this morning. She is up in her stretcher chair at this time. She converses normally but is a little bit disoriented this afternoon. She wants to get an appointment in my office to see me at the next possible opening in she indicates she is not ready to go home and care for herself. I reassured her that I would see her while she was here in the hospital and that she would likely benefit from inpatient rehabilitation before she goes home. She wants some ice chips which is fine. Her belly is soft and nondistended. There is some mild abdominal tenderness. The exam, history, and the medical decision-making described in the above note were completed with the assistance of the mid-level provider. I reviewed and agree with the findings presented. I attest that I had a [id number] encounter with the patient on the same day, and personally performed and documented my assessment and findings in the medical record.
[2018-06-05] MEDS: fentaNYL Citrate Inj 100 MCG/2 ML Ampul IV.PUSH PRN (01:35)
[2018-06-05] MEDS: Pantoprazole Inj 80 MG in Sodium Chlor 0.9% Inj 100 ML IV.CONT SCH ×3 (02:58→22:56)
[2018-06-05] MEDS ORDERED: Pharmacy Ordered Lab Info OTHER ONE (05:45)
[2018-06-05 06:55] LABS: Baso # (Auto) 0.1 th/mm3 (0.0-0.2); Baso % (Auto) 0.4 % (0.0-2.0); Eos # (Auto) 0.2 th/mm3 (0.0-0.4); Eos % (Auto) 1.8 % (0.0-4.0); Hematocrit 25.2 % (35.0-46.0); Hemoglobin 8.3 gm/dL (11.6-15.3); Lymph # (Auto) 0.5 th/mm3 (1.0-4.8); Lymph % (Auto) 3.8 % (9.0-44.0); Mean Corpuscular HGB Conc 32.8 % (32.0-36.0); Mean Corpuscular Hemoglobin 29.5 pg (27.0-34.0); Mean Corpuscular Volume 89.8 fL (80.0-100.0); Mean Platelet Volume 9.9 fL (7.0-11.0); Mono # (Auto) 0.3 th/mm3 (0.0-0.9); Mono % (Auto) 2.9 % (0.0-8.0); Neut # (Auto) 10.9 th/mm3 (1.8-7.7); Neut % (Auto) 91.1 % (16.0-70.0); Platelet Count 103 th/mm3 (150-450); Red Blood Count 2.81 mil/mm3 (4.00-5.30); White Blood Count 11.9 th/mm3 (4.0-11.0)
[2018-06-05 07:23] LABS: Anion Gap 9 meq/L (5-15); Blood Urea Nitrogen 37 mg/dL (7-18); Calcium 8.4 mg/dL (8.5-10.1); Carbon Dioxide 19.4 meq/L (21.0-32.0); Chloride 124 meq/L (98-107); Glomerular Filtration Rate Greater Than 89 mL/min (>89); Glucose,Random 107 mg/dL (74-106); Potassium 3.6 meq/L (3.5-5.1); Sodium 152 meq/L (136-145); Vancomycin,Trough 14.1 mcg/mL (5.0-10.0)
[2018-06-05] MEDS: Vancomycin Inj 1,500 MG in Sodium Chlor 0.9% Inj 500 ML IV.SIG SCH (07:38)
--- NOTE | 2018-06-05 09:17 | P.PNONC ---
Subjective Interval history: Patient awake and alert but pleasantly confused. Objective Vital Signs/Intake & Output: Vital Signs 06/04/18 10:00 06/04/18 11:00 06/04/18 11:16 Temperature Pulse Rate 104 H 102 H 101 H Respiratory Rate Blood Pressure 142/64 H 136/64 131/61 Pulse Oximetry 96 97 97 06/04/18 12:00 06/04/18 13:00 06/04/18 14:00 Temperature 97.7 F Pulse Rate 104 H 109 H 101 H Respiratory Rate Blood Pressure 130/61 133/63 130/59 L Pulse Oximetry 98 98 97 06/04/18 15:00 06/04/18 16:00 06/04/18 17:00 Temperature 97.8 F Pulse Rate 97 H 104 H 94 H Respiratory Rate Blood Pressure 142/64 H 158/69 H 141/64 H Pulse Oximetry 98 98 98 06/04/18 17:16 06/04/18 19:00 06/04/18 20:00 Temperature 98.6 F Pulse Rate 94 H 98 H 99 H Respiratory Rate Blood Pressure 150/65 H 152/65 H Pulse Oximetry 98 98 06/04/18 21:00 06/04/18 22:00 06/04/18 23:00 Temperature Pulse Rate 99 H 103 H 101 H Respiratory Rate 16 Blood Pressure 159/66 H 142/63 H Pulse Oximetry 98 97 97 06/05/18 00:00 06/05/18 01:00 06/05/18 02:00 Temperature 99.0 F Pulse Rate 102 H 100 H 103 H Respiratory Rate 13 Blood Pressure 143/64 H 136/60 120/58 L Pulse Oximetry 97 97 97 06/05/18 02:05 06/05/18 03:00 06/05/18 04:00 Temperature 98.7 F Pulse Rate 103 H 107 H Respiratory Rate 15 Blood Pressure 135/63 141/62 H Pulse Oximetry 95 97 06/05/18 05:00 06/05/18 06:00 06/05/18 07:00 Temperature Pulse Rate 100 H 101 H 101 H Respiratory Rate Blood Pressure 146/66 H 146/65 H 150/67 H Pulse Oximetry 96 95 97 06/05/18 08:00 Temperature 98.4 F Pulse Rate 107 H Respiratory Rate Blood Pressure 137/61 Pulse Oximetry 94 L Intake & Output 06/04/18 06/05/1818 18:59 06:59 18:59 Intake Total 2463 / 2463 1820 / 1820 Output Total 2575 / 2575 1525 / 1525 Balance -112 / -112 295 / 295 Weight 72.3 kg Intake: IV 1825 / 1825 1200 / 1200 Protonix Inj 80 MG In NS Inj 100 / 100 190 / 190 100 ML @ 10 mls/hr IV.CONT Q10H [facility] Rx#:[id number] KCl Inj 20 MEQ In LR 1000 mL 1010 / 1010 1010 / 1010 Inj 1,000 ML @ 80 mls/hr IV. CONT .[id number] [facility] Rx#:[id number] KCl 20 mEq Premix Inj 20 meq In 200 / 200 100 ml @ 50 mls/hr IV.SIG Q2H PRN Rx#:[id number] Vancomycin Inj 1,500 MG In NS 515 / 515 Inj 500 ML @ 250 mls/hr IV.SIG Q24H [facility] Rx#:[id number] Oral 120 / 120 Tube Feeding 518 / 518 580 / 580 Water Bolus Amount 40 / 40 Output: Urine 650 / 650 Stool 25 / 25 50 / 50 Urine/Stool Mix 550 / 550 Urine Amount (Catheter) 650 / 650 625 / 625 Indwelling Urethral Catheter 650 / 650 625 / 625 Gastric Drainage 700 / 700 850 / 850 Right Nare Nasogastric Tube 700 / 700 850 / 850 Other: Date of Last Bowel Movement 06/03/18 06/05/18 06/05/18 # Bowel Movements 5 # Incontinent Bowel Movements 1 Result Diagrams: 06/05/18 05:27 06/05/18 05:27 Laboratory Results: Laboratory Results - last 24 hr 06/05/18 06/05/18 05:27 05:27 WBC 11.9 H RBC 2.81 L Hgb 8.3 L Hct 25.2 L MCV 89.8 MCH 29.5 MCHC 32.8 RDW 15.0 Plt Count 103 L MPV 9.9 Neut % (Auto) 91.1 H Lymph % (Auto) 3.8 L [place] % (Auto) 2.9 Eos % (Auto) 1.8 Baso % (Auto) 0.4 Neut # (Auto) 10.9 H Lymph # (Auto) 0.5 L [place] # (Auto) 0.3 Eos # (Auto) 0.2 Baso # (Auto) 0.1 WBC Differential . Differential Comment Auto diff final Sodium 152 H Potassium 3.6 Chloride 124 H Carbon Dioxide 19.4 L Anion Gap 9 BUN 37 H Creatinine 0.58 Estimated GFR Greater than 89 Random Glucose 107 H Calcium 8.4 L Vancomycin Trough 14.1 H Culture Results: Microbiology 06/01/18 10:43 Aerobic Blood Culture - Preliminary Blood - Peripheral No growth in 3 days Anaerobic Blood Culture - Preliminary No growth in 3 days 06/01/18 10:48 Aerobic Blood Culture - Preliminary Blood - Peripheral No growth in 3 days Anaerobic Blood Culture - Preliminary No growth in 3 days Medications: Active Medications Generic Name Dose Route Start Last Admin Trade Name Freq PRN Reason Stop Dose Admin Acetaminophen 650 mg 05/17/18 06:10 05/28/18 16:28 Tylenol PO 650 mg Q4H PRN Administration Temp > 100.4 Albuterol 2.5 mg 05/21/18 23:28 05/28/18 08:20 Albuterol Neb (Prn) NEB 2.5 mg Q2HR NEB PRN Administration WHEEZING Amlodipine Besylate 5 mg 05/26/18 10:00 06/04/18 09:19 Norvasc J-TUBE Not Given DAILY [facility] Artificial Tears 1 applicatio 05/22/18 21:00 06/04/18 20:22 Lacrilube Opth Oint EACH EYE 1 applicatio BID [facility] Administration Clonidine HCl 0.1 mg 05/26/18 11:24 05/26/18 23:31 Catapres PO 0.1 mg Q6H PRN Administration SBP>160, DBP>90 Fentanyl Citrate 25 mcg 06/01/18 08:40 06/05/18 01:35 Fentanyl Inj IV.PUSH 25 mcg Q1H PRN Administration Any pain Heparin Sodium (Porcine) 0 unit 05/21/18 09:00 06/04/18 09:18 Heparin Central Flush IV.FLUSH Not Given DAILY [facility] Hydralazine HCl 10 mg 05/23/18 00:24 05/28/18 16:12 Apresoline Inj IV.PUSH 10 mg Q1H PRN Administration Sbp>165, Dbp>90 Pantoprazole Sodium 80 mg/ 100 mls @ 10 mls/hr 05/17/18 09:00 06/05/18 02:58 Sodium Chloride IV.CONT 10 mls/hr Q10H [facility] Administration Sodium Chloride 500 mls @ 30 mls/hr 05/18/18 07:00 05/18/18 07:00 Ns Inj IV.SIG Not Given .Q10H [facility] Magnesium Sulfate 2 gm/ Sodium 100 mls @ 50 mls/hr 05/22/18 22:43 05/30/18 08 :00 Chloride IV.SIG Infused UNSCH PRN Infusion For Magnesium 1.2 - 1.6 mg/dL Potassium Chloride 40 meq in 100 mls @ 25 mls/hr 05/22/18 22:43 05/30/18 08: 00 Kcl 40 Meq Premix Inj IV.SIG Infused Q2H PRN Infusion For Potassium 2.8 - 3.2 mEq/L Potassium Chloride 20 meq in 100 mls @ 50 mls/hr 05/22/18 22:43 06/04/18 17: 12 Kcl 20 Meq Premix Inj IV.SIG Infused Q2H PRN Infusion For Potassium 3.3 - 3.5 mEq/L Potassium Chloride 40 meq in 100 mls @ 25 mls/hr 05/22/18 22:43 05/30/18 08: 00 Kcl 40 Meq Premix Inj IV.SIG Infused UNSCH PRN Infusion For Potassium 3.3 - 3.5 mEq/L Potassium Chloride 20 meq in 100 mls @ 50 mls/hr 05/22/18 22:43 06/02/18 17: 30 Kcl 20 Meq Premix Inj IV.SIG Infused Q2H PRN Infusion For Potassium 2.8 - 3.2 mEq/L Potassium Phosphate 30 mmol/ 260 mls @ 42 mls/hr 05/22/18 22:43 05/23/18 12: 57 Sodium Chloride IV.SIG Infused UNSCH PRN Infusion SEE LABEL COMMENTS Potassium Chloride 20 meq/ 1,010 mls @ 80 mls/hr 06/03/18 10:00 06/05/18 02: 59 Lactated Ringer's IV.CONT 80 mls/hr .[id number] [facility] Administration Labetalol HCl 20 mg 05/26/18 07:44 05/27/18 03:30 Trandate Inj IV.PUSH 20 mg Q2H PRN Administration KEEP SBP<160 Lidocaine HCl 2 patch 05/19/18 09:30 06/04/18 09:17 Lidoderm 5% Patch.12 Hr T-DERMAL 2 patch DAILY [facility] Administration Ondansetron HCl 4 mg 05/17/18 06:10 06/05/18 04:27 Zofran Inj IV.PUSH 4 mg Q6H PRN Administration NAUSEA OR VOMITING Patch Removal 1 each 05/19/18 21:00 06/04/18 20:23 Remove Old Patch T-DERMAL 1 each BID [facility] Administration Potassium Bicarb/Potassium Chloride 50 meq 05/22/18 22:43 06/03/18 05:53 K-Lyte Cl Eff PO 50 meq UNSCH PRN Administration For Potassium 3.3 - 3.5 mEq/L Potassium Bicarb/Potassium Chloride 25 meq 05/26/18 21:00 06/04/18 20:22 K-Lyte Cl Eff NG/OG Not Given BID [facility] Prochlorperazine Edisylate 10 mg 05/17/18 09:06 05/19/18 00:08 Compazine Inj IV.PUSH 10 mg Q6H PRN Administration NAUSEA Senna/Docusate Sodium 1 tab 05/17/18 09:00 06/04/18 20:22 Jessie-Colace PO 1 tab BID [facility] Administration Sodium Chloride 0 ml 05/21/18 09:00 06/04/18 09:20 Ns Flush IV.FLUSH 10 ml DAILY [facility] Administration Sodium Chloride 0 ml 05/20/18 16:43 05/26/18 01:39 Ns Flush IV.FLUSH 2 ml PRN PRN Administration FLUSH AFTER USING IV ACCESS Objective Remarks: GENERAL: Awake, alert, confused, and does not appear in distress SKIN: Warm and dry. HEAD: Normocephalic. EYES: No scleral icterus. No injection or drainage. NECK: Supple, trachea midline. No JVD or lymphadenopathy. LYMPHATIC: No adenopathy. CARDIOVASCULAR: Regular rate and rhythm without murmurs. RESPIRATORY: Breath sounds decreased at bases GASTROINTESTINAL: Abdomen soft, mild distention, no tenderness, EXTREMITIES: Trace edema MUSCULOSKELETAL: Poor muscle tone. NEUROLOGICAL: No obvious focal deficit. Awake, alert, and oriented x 1 Assessment/Plan - Plan Ms. 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 Patient responded to steroids. Plan: 1. Thrombocytopenia: solu-medrol currently 15mg IV daily. Platelets improved and now 103k. Will in several days decrease the Solu-Medrol to 10 mg a day, if she maintains an adequate platelet count. Once she is taking p.o. will discontinue IV steroids and convert to oral. Fortunately we are now at a low dose and it is unlikely to impact healing and infection. At this point I believe it would be reasonable to give her DVT prophylaxis as long as there is no active bleeding and the platelet count is sufficient. I have spoken with Dr. Szymanski and he is agreeable and will write for DVT prophylaxis. Renal function is normal and Lovenox would be reasonable.
[2018-06-05] MEDS: Potassium Chloride 25 MEQ Effervescent Tablet NG/OG SCH ×2 (09:20→20:49)
[2018-06-05] MEDS: amLODIPine 5 MG Tablet J-TUBE SCH (09:20)
[2018-06-05] MEDS: Senna/Docusate Sodium 8.6/50 MG Tablet PO SCH ×2 (09:20→20:26)
[2018-06-05] MEDS: MethylPREDNISolone Sod Succinate Inj 40 MG/ML Vial IV.PUSH SCH (09:21)
[2018-06-05] MEDS: Lidocaine 5% Patch T-DERMAL SCH (09:23)
[2018-06-05] MEDS: Heparin Central Flush 100 UNIT/ML 5 ML Vial IV.FLUSH SCH (09:24)
[2018-06-05] MEDS: Artificial Tears Opth Oint 3.5 GM Tube EACH EYE SCH ×2 (09:28→20:50)
[2018-06-05] MEDS: Enoxaparin Inj 40 MG/0.4 ML Syringe SQ SCH (10:47)
--- NOTE | 2018-06-05 10:57 | P.PNGS ---
Subjective Patient reports: no new complaints (Sitting up in chair, physical therapy just work with her and commented that her balance was much better than they expected. She apparently threw up once this morning. She continues to be pleasantly confused.) Physical Exam Vital signs: Vital Signs 06/04/18 11:00 06/04/18 11:16 06/04/18 12:00 Temperature 97.7 F Pulse Rate 102 H 101 H 104 H Respiratory Rate Blood Pressure 136/64 131/61 130/61 Pulse Oximetry 97 97 98 06/04/18 13:00 06/04/18 14:00 06/04/18 15:00 Temperature Pulse Rate 109 H 101 H 97 H Respiratory Rate Blood Pressure 133/63 130/59 L 142/64 H Pulse Oximetry 98 97 98 06/04/18 16:00 06/04/18 17:00 06/04/18 17:16 Temperature 97.8 F Pulse Rate 104 H 94 H 94 H Respiratory Rate Blood Pressure 158/69 H 141/64 H Pulse Oximetry 98 98 06/04/18 19:00 06/04/18 20:00 06/04/18 21:00 Temperature 98.6 F Pulse Rate 98 H 99 H 99 H Respiratory Rate Blood Pressure 150/65 H 152/65 H Pulse Oximetry 98 98 98 06/04/18 22:00 06/04/18 23:00 06/05/18 00:00 Temperature 99.0 F Pulse Rate 103 H 101 H 102 H Respiratory Rate 16 13 Blood Pressure 159/66 H 142/63 H 143/64 H Pulse Oximetry 97 97 97 06/05/18 01:00 06/05/18 02:00 06/05/18 02:05 Temperature Pulse Rate 100 H 103 H Respiratory Rate 15 Blood Pressure 136/60 120/58 L Pulse Oximetry 97 97 06/05/18 03:00 06/05/18 04:00 06/05/18 05:00 Temperature 98.7 F Pulse Rate 103 H 107 H 100 H Respiratory Rate Blood Pressure 135/63 141/62 H 146/66 H Pulse Oximetry 95 97 96 06/05/18 06:00 06/05/18 07:00 06/05/18 08:00 Temperature 98.4 F Pulse Rate 101 H 101 H 107 H Respiratory Rate Blood Pressure 146/65 H 150/67 H 137/61 Pulse Oximetry 95 97 94 L 06/05/18 09:20 Temperature Pulse Rate Respiratory Rate Blood Pressure Pulse Oximetry 97 Intake & Output 06/04/18 06/05/18 06/05/18 18:59 06:59 18:59 Intake Total 2463 / 2463 1820 / 1820 Output Total 2575 / 2575 1525 / 1525 Balance -112 / -112 295 / 295 Weight 72.3 kg Intake: IV 1825 / 1825 1200 / 1200 Protonix Inj 80 MG In NS Inj 100 / 100 190 / 190 100 ML @ 10 mls/hr IV.CONT Q10H [facility] Rx#:[id number] KCl Inj 20 MEQ In LR 1000 mL 1010 / 1010 1010 / 1010 Inj 1,000 ML @ 80 mls/hr IV. CONT .[id number] [facility] Rx#:[id number] KCl 20 mEq Premix Inj 20 meq In 200 / 200 100 ml @ 50 mls/hr IV.SIG Q2H [facility] Rx#:[id number] Vancomycin Inj 1,500 MG In NS 515 / 515 Inj 500 ML @ 250 mls/hr IV.SIG Q24H [facility] Rx#:[id number] Oral 120 / 120 Tube Feeding 518 / 518 580 / 580 Water Bolus Amount 40 / 40 Output: Urine 650 / 650 Stool 25 / 25 50 / 50 Urine/Stool Mix 550 / 550 Urine Amount (Catheter) 650 / 650 625 / 625 Indwelling Urethral Catheter 650 / 650 625 / 625 Gastric Drainage 700 / 700 850 / 850 Right Nare Nasogastric Tube 700 / 700 850 / 850 Other: Date of Last Bowel Movement 06/03/18 06/05/18 06/05/18 # Bowel Movements 5 # Incontinent Bowel Movements 1 Narrative: Her abdomen remains soft and nondistended. She is tolerating tube feeds at 50 an hour. She has bowel and bladder function. NG drainage remains bilious. It is 15 150/20 4 hours. Extremities are nonedematous. - Urinary Catheter Management Indwelling Urethral Catheter Cath placed during this visit: yes Reason for continuing: Hourly intake/output Insertion date: 05/20/18 Insertion time: 19:55 Results - Labs 06/05/18 05:27 06/05/18 05:27 Laboratory Results - last 24 hr 06/05/18 06/05/18 05:27 05:27 WBC 11.9 H RBC 2.81 L Hgb 8.3 L Hct 25.2 L MCV 89.8 MCH 29.5 MCHC 32.8 RDW 15.0 Plt Count 103 L MPV 9.9 Neut % (Auto) 91.1 H Lymph % (Auto) 3.8 L [place] % (Auto) 2.9 Eos % (Auto) 1.8 Baso % (Auto) 0.4 Neut # (Auto) 10.9 H Lymph # (Auto) 0.5 L [place] # (Auto) 0.3 Eos # (Auto) 0.2 Baso # (Auto) 0.1 WBC Differential . Differential Comment Auto diff final Sodium 152 H Potassium 3.6 Chloride 124 H Carbon Dioxide 19.4 L Anion Gap 9 BUN 37 H Creatinine 0.58 Estimated GFR Greater than 89 Random Glucose 107 H Calcium 8.4 L Vancomycin Trough 14.1 H - Imaging Imaging: ITS Impressions GI Bleed Scan Nuclear Medicine 05/19/18 00:00 CONCLUSION: 1. 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 Patient was emergently brought to the interventional radiology department from the nuclear medicine department for angiography and intervention. Mesenteric Arteriogram 05/19/18 14:37 CONCLUSION: 1. 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 2. 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 PICC Line Insertion 05/20/18 00:00 CONCLUSION: 1. Uncomplicated central venous Power PICC line placement. 2. The PICC line can be used immediately. Abdomen X-Ray 05/28/18 05:23 CONCLUSION: No dilated bowel loops. Abdomen/Pelvis CT 05/29/18 00:00 CONCLUSION: 1. Since the prior CT, midline laparotomy with gastrojejunostomy has been performed. Anastomosis appears patent. There is a nasogastric tube which extends beyond the site of surgery and is in the first portion of the duodenum. Unchanged metallic structure near the ligament of Treitz, etiology uncertain. 2. A jejunostomy tube has also been placed without evidence of an acute complication. 3. Small, nonspecific free fluid in the pelvic cavity. No evidence of abscess. 4. No acute solid organ abnormality. Cysts of both kidneys and nonobstructing stones of the left kidney are again noted. 5. Sigmoid colon diverticulosis without diverticulitis. Chest CT 05/29/18 11:52 CONCLUSION: 1. 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 2. Pneumonia with volume loss in the right lower lobe. 3. Coronary artery calcification. 4. Emphysema. Gastrografin Study 06/02/18 00:00 CONCLUSION: 1. During the first 30 minutes there was only minimal passage of contrast into the gastrojejunostomy. 2. On the delayed 1 hour film there is apparent contrast noted in the more distal small bowel. Chest X-Ray 06/03/18 06:00 CONCLUSION: No acute cardiopulmonary disease identified. Assessment and Plan - Assessment (1) GI bleed Code(s): K92.2 - Gastrointestinal hemorrhage, unspecified Status: Acute Plan: 82 year old female s/p exploratory laparotomy, gastrojejunostomy, closure, j tube -Continue NGT to LIWS as output still remains high -No meds through NGT at this time -Tolerating TF at goal of 50 cc/hr -PT/rehab----added OT - Plan Personally evaluated the patient in room 1309 this afternoon. Nursing reports she had emesis before 7 AM this morning. She is up in her stretcher chair at this time. She converses normally but is a little bit disoriented this afternoon. She wants to get an appointment in my office to see me at the next possible opening in she indicates she is not ready to go home and care for herself. I reassured her that I would see her while she was here in the hospital and that she would likely benefit from inpatient rehabilitation before she goes home. She wants some ice chips which is fine. Her belly is soft and nondistended. There is some mild abdominal tenderness. The exam, history, and the medical decision-making described in the above note were completed with the assistance of the mid-level provider. I reviewed and agree with the findings presented. I attest that I had a [id number] encounter with the patient on the same day, and personally performed and documented my assessment and findings in the medical record. 06/05/2018 Postop duodenal diverticulum resection with resection of fourth portion of duodenum and proximal jejunum. Postop gastrojejunostomy with closure of abdomen and feeding jejunostomy. Patient has poor gastric emptying was still high NG output. Discussed yesterday with Dr. Szymanski about giving the patient a trial of removal NG tube and as far as I am concerned that can happen any time over the next several days. If she has increasing nausea and emesis she would need the NG tube removed until the stomach will empty better. Continue supportive therapy with feeding jejunostomy. Steroids gradually weaning per Dr. Alford and platelet count is stable. Hemoglobin slightly lower at 8.3. No signs of GI bleed. Plan removal of remaining mel from midline incision next week. Please call if general surgery needed over the weekend, will see her back again on Friday.
[2018-06-05] MEDS ORDERED: Sodium Chloride 0.45 % Inj 1,000 ML IV.CONT SCH (11:00)
--- NOTE | 2018-06-05 11:03 | P.PNCC ---
Subjective Subjective Remarks/Hospital Course: Hospital Course: 82yF with history of amyloidosis who presented with GI bleeding, hypotension, and severe anemia. originally admitted to the floor. hgb continued to downtrend despite transfusions. today taken for EGD which found blood in the stomach and clot, but no active bleeding. despite this, hgb still did not improve. taken for bleeding scan which was very +. discussed case with Dr. Garcia/Dr. Garland in IR. review of admission CT abd/pelvis demonstrates possible bleeding at duodenal bulb concerning for ulceration. Taken emergently to IR for embolization which appears to be successful. I evaluated the patient upon arrival to the ICU post-IR procedure. she is stable. complaining of hip pain. hgb has improved appropriately. she denies other complaints. she asked me not to look at her groin sites because "my hips hurt and I am tired." Recent evaluation by bedside RN is without hematoma, and this evaluation is deferred at patient's request (bedside RN to continue to monitor for signs of hematoma). remainder of ROS negative. Subjective: 05/20: doing well. complaining of moderate abdominal pain 5/10. receiving iv dilaudid currently. plan for EGD today. hgb dropped from 7.8 to 7.4, but slightly more tachycardic today, and I am worried about ongoing bleeding, although it does appear to be much slower clinically than yesterday. I discussed with GI [facility] that per my conversation with IR, the lesion may be in the 4th portion of the duodenum near the ligament and it may require further investigation that usual EGD, and possibly push enteroscopy. She stated she would convey to the proceduralist. Dr. Shin suggests type II NSTEMI secondary to anemia and I agree completely with his assessment. Given that she is going soon for repeat EGD with anesthesia, will give 1 additional unit of prbc as she clearly has demonstrated she needs higher hematocrit for oxygen carrying capacity to her known ischemic CAD lesions. 05/21: s/p exploratory laparotomy last night. open abdomen. hgb stable. became acutely hypotensive with increased wound vac output one time today- emergently gave 1 unit prbc and 1 unit plt empirically given sudden change in condition. significant 3rd space losses requiring additional resuscitative efforts. remains deeply sedated. off vasopressors. remains intubated. 05/22: more hemodynamically stable today. hgb stable. still high wound-vac output with 300-500mL/12h. uop remains adequate at 70-80mL/hr, but Cr slightly elevated over baseline. unable to start diuresis yet and clinically although developing anasarca in the tissues, appears intravascularly euvolemic but not overloaded. likely will not tolerate diuresis efforts without significant kidney injury at this present juncture. needs bringback and washout in OR, but will leave timing of this to general surgery. 05/23: Received from operating room in good condition. Abdominal wound closed following gastrojejunostomy. Joseph-Vieira drain in region of the duodenal stump, gastric anastomosis. Nasogastric tube to not be moved, good position in stomach, keep to low intermittent suction. Downstream jejunostomy tube for initiation of trickle feeds. Renal function this morning excellent, follow closely. Chemical ventilation for the next couple of days as we observe tension on the abdominal wall. Meticulously avoid fluid overload. At present she is hypertensive and tachycardic for which we will restart propofol and use boluses of fentanyl as needed. Baseline fentanyl drip is infusing. 05/24: Remains warm and well-perfused overnight. Urine output acceptable at 35- 40 cc/h. Tolerated spontaneous breathing trial well this morning, we keep on vent for another 24-48 hours. Generalized edema persists. 05/25: Intubated sedated heavily. Urine output excellent with Lasix overall 3 L. Currently remains grossly fluid overloaded approximately 20 kg up from admission weight. We will start scheduled Lasix 20 every 8 hours with potassium replacement to facilitate ventilator weaning. 05/26: Sedated, orally intubated on mech vent. Being diuresed. Elevated BP on lightening sedation noted. 05/27: Sedated, orally intubated on mechanical ventilation. Being diuresed. Failed CPAP trial earlier. On Cleviprex for hypertension 05/28: Had episode of emesis last night. NGT remains to suction. Febrile overnight with rising WBCs noted. Sputum culture and UA ordered 05/27, getting blood cultures and starting empiric Abx coverage. Being diuresed. Cleviprex gtt being titrated down. 05/29: Arousable, intubated on mechanical ventilation. Follows commands by nodding, squeezes my fingers on command. Febrile yesterday for which she had cultures sent and was started on empiric antibiotic coverage. Blood cultures 3 out of 4 are growing gram-positive cocci. Her central line and PICC line were discontinued yesterday. 05/30: Sedated, arousable, intubated on mechanical ventilation. Follows commands by nodding and squeezing my fingers. CT chest with right hilar mass near right mainstem bronchus. CT abdomen pelvis with postop changes. Being diuresed to mobilize fluid. Daily CPAP trials. Blood cultures with gram- positive cocci. 05/31: Patient remains intubated off all sedation more awake today wakes up easily follows commands. Urine output adequate, sodium is 159. I have placed her on quarter normal saline and increase the free water flushes. Still receiving Lasix 06/01: Extubated yesterday breathing comfortably tolerating well, though lethargic. Serum sodium coming down now 155 with quarter normal saline. Urine output 1.5 L with IV Lasix 06/02: Patient breathing comfortably more alert today. Communicative denies any distress. Had Gastrografin study today results pending. Sodium improved to 151 with hypotonic saline. Urine output 3 L in 24 hours. Set up in stretcher chair for 3 hours yesterday 06/03: Patient continues to breathe comfortably however had episode of emesis earlier today and nasogastric tube is now to low intermittent suction. Electrolytes normalizing now, will convert back to isotonic crystalloid. 06/04: Frequent vomiting persists. Tube feedings delivered through jejunostomy tube appear to be tolerated. Prerenal azotemia persists, exacerbated by GI fluid losses. We will need to hold Lasix for now. Her breathing is remarkably comfortable. 06/05: Azotemia steadily improving and state of hydration about normal right now. We will continue to replace gastric losses as necessary. Her state of confusion fluctuates during the course of the day but otherwise her neurologic status appears normal. Fortunately, she is tolerating enteral feeding through her jejunostomy tube and we are able to maintain her nutritional status. Her platelets have rebounded to the point where the hematology service feels comfortable restarting her DVT prophylaxis. Objective Vital Signs / I&O: Vital Signs 06/04/18 11:00 06/04/18 11:16 06/04/18 12:00 Temperature 97.7 F Pulse Rate 102 H 101 H 104 H Respiratory Rate Blood Pressure 136/64 131/61 130/61 Pulse Oximetry 97 97 98 06/04/18 13:00 06/04/18 14:00 06/04/18 15:00 Temperature Pulse Rate 109 H 101 H 97 H Respiratory Rate Blood Pressure 133/63 130/59 L 142/64 H Pulse Oximetry 98 97 98 06/04/18 16:00 06/04/18 17:00 06/04/18 17:16 Temperature 97.8 F Pulse Rate 104 H 94 H 94 H Respiratory Rate Blood Pressure 158/69 H 141/64 H Pulse Oximetry 98 98 06/04/18 19:00 06/04/18 20:00 06/04/18 21:00 Temperature 98.6 F Pulse Rate 98 H 99 H 99 H Respiratory Rate Blood Pressure 150/65 H 152/65 H Pulse Oximetry 98 98 98 06/04/18 22:00 06/04/18 23:00 06/05/18 00:00 Temperature 99.0 F Pulse Rate 103 H 101 H 102 H Respiratory Rate 16 13 Blood Pressure 159/66 H 142/63 H 143/64 H Pulse Oximetry 97 97 97 06/05/18 01:00 06/05/18 02:00 06/05/18 02:05 Temperature Pulse Rate 100 H 103 H Respiratory Rate 15 Blood Pressure 136/60 120/58 L Pulse Oximetry 97 97 06/05/18 03:00 06/05/18 04:00 06/05/18 05:00 Temperature 98.7 F Pulse Rate 103 H 107 H 100 H Respiratory Rate Blood Pressure 135/63 141/62 H 146/66 H Pulse Oximetry 95 97 96 06/05/18 06:00 06/05/18 07:00 06/05/18 08:00 Temperature 98.4 F Pulse Rate 101 H 101 H 107 H Respiratory Rate Blood Pressure 146/65 H 150/67 H 137/61 Pulse Oximetry 95 97 94 L 06/05/18 09:20 Temperature Pulse Rate Respiratory Rate Blood Pressure Pulse Oximetry 97 Intake & Output 06/04/18 06/05/18 06/05/18 18:59 06:59 18:59 Intake Total 2463 / 2463 1820 / 1820 Output Total 2575 / 2575 1525 / 1525 Balance -112 / -112 295 / 295 Weight 72.3 kg Intake: IV 1825 / 1825 1200 / 1200 Protonix Inj 80 MG In NS Inj 100 / 100 190 / 190 100 ML @ 10 mls/hr IV.CONT Q10H [facility] Rx#:[id number] KCl Inj 20 MEQ In LR 1000 mL 1010 / 1010 1010 / 1010 Inj 1,000 ML @ 80 mls/hr IV. CONT .[id number] [facility] Rx#:[id number] KCl 20 mEq Premix Inj 20 meq In 200 / 200 100 ml @ 50 mls/hr IV.SIG Q2H [facility] Rx#:[id number] Vancomycin Inj 1,500 MG In NS 515 / 515 Inj 500 ML @ 250 mls/hr IV.SIG Q24H [facility] Rx#:[id number] Oral 120 / 120 Tube Feeding 518 / 518 580 / 580 Water Bolus Amount 40 / 40 Output: Urine 650 / 650 Stool 25 / 25 50 / 50 Urine/Stool Mix 550 / 550 Urine Amount (Catheter) 650 / 650 625 / 625 Indwelling Urethral Catheter 650 / 650 625 / 625 Gastric Drainage 700 / 700 850 / 850 Right Nare Nasogastric Tube 700 / 700 850 / 850 Other: Date of Last Bowel Movement 06/03/18 06/05/18 06/05/18 # Bowel Movements 5 # Incontinent Bowel Movements 1 Result Diagrams: 06/05/18 05:27 06/05/18 05:27 Objective Remarks: GENERAL: In no acute distress. Calm. HEENT: Normocephalic. Atraumatic. CHEST: Clear bilaterally, normal spontaneous excursions. Acceptable cough effort. CARDIOVASCULAR: Normal S1-S2. Regular normal rate and rhythm. No JVD. ABDOMEN: Fascia closed, postsurgical wound intact, abdominal binder remains in place. Soft, nondistended. Bowel sounds present. MUSCULOSKELETAL: Minimal bilateral foot and ankle edema. Warm and well- perfused digits. NEUROLOGICAL: Patient is alert and awake. Follows commands x4, appears comfortable, no focal deficits. Assessment and Plan - Assessment and Plan Plan: Assessment: 82yF with amyloidosis and active GI bleed. s/p emergent IA embolization 05/19. s/p EGD 05/19 and again 05/20 with ischemia present. s/p emergent exploratory laparotomy with duodenal and jejunal resection, initially left in discontinuity with open abdomen, and now reconstructed with abdominal wall closure. Scheduled Lasix for aggressive diuresis. Upper GI bleed Acute hypoxic and hypercarbic respiratory failure-resolved s/p emergent ex lap with duodenal and jejunal resection, initially left in discontinuity with open abdomen 05/20 Now reconstructed with abdominal wall closure. Severe acute anemia secondary to blood loss requiring transfusion- persistent duodenal ulcer Type II NSTEMI secondary to demand ischemia from severe anemia s/p EGD 05/19, 05/20. s/p emergent IR embolization 05/19 severe acute thrombocytopenia - ITP improving acute protein calorie malnutrition- moderate to severe Fluid overload sepsis Pneumonia Staph aureus bacteremia Right hilar mass H/o Right lower lobectomy, and adenoca lung Plan: - Extubated 05/31/2018 tolerating well. - Hold IV Lasix 20 mg every 12 hours with potassium replacement - Discontinue lactated Ringer's with potassium added - Abx with azactam, zyvox, flagyl via G tube. ID following. micafungin added by ID on 05/28. - Blood cultures from 05/28 growing MSSA. Sputum culture Citrobacter and staph aureus - Pulmonary consult requested for right hilar mass on CT chest done on 05/29. Per Dr. Pack's note, daughter Nohemy Davis wants to hold off bronchoscopy. Once better patient can make the decision herself - Labetalol prn, Cardene gtt to keep SBP less than 160mm Hg, Norvasc 5mg via J tube daily - Serial hemoglobin, transfuse to keep hgb > 7 - serially check platelets, transfuse to keep plt > 50k. Tapering solumedrol, platelets remain acceptable. - tube feeds per general surgery, through jejunostomy. NGT to suction. Gastrografin study completed today report pending - Strict intake output, monitor and replete elect lytes, follow BUN and creatinine. - ICU electrolyte replacement protocol - SCDs. Restart subcu heparin per Heme-onc. Overall impression: Slowly improving, now extubated and breathing comfortably, remains weak. Source of bacteremia remains unclear but she appears well covered and is getting stronger..
[2018-06-06 04:36] LABS: Baso % (Auto) 0.4 % (0.0-2.0); Eos # (Auto) 0.1 th/mm3 (0.0-0.4); Eos % (Auto) 1.1 % (0.0-4.0); Hematocrit 25.1 % (35.0-46.0); Hemoglobin 8.3 gm/dL (11.6-15.3); Lymph # (Auto) 0.5 th/mm3 (1.0-4.8); Lymph % (Auto) 4.1 % (9.0-44.0); Mean Corpuscular Hemoglobin 29.1 pg (27.0-34.0); Mean Corpuscular Volume 88.3 fL (80.0-100.0); Mean Platelet Volume 9.4 fL (7.0-11.0); Mono # (Auto) 0.5 th/mm3 (0.0-0.9); Mono % (Auto) 3.8 % (0.0-8.0); Neut # (Auto) 11.6 th/mm3 (1.8-7.7); Neut % (Auto) 90.6 % (16.0-70.0); Platelet Count 119 th/mm3 (150-450); Red Blood Count 2.85 mil/mm3 (4.00-5.30); Red Cell Distribution Width 15.3 % (11.6-17.2); White Blood Count 12.8 th/mm3 (4.0-11.0)
[2018-06-06 04:52] LABS: Calcium 8.2 mg/dL (8.5-10.1); Carbon Dioxide 18.5 meq/L (21.0-32.0); Potassium 3.5 meq/L (3.5-5.1)
[2018-06-06] MEDS: Vancomycin Inj 1,750 MG in Sodium Chlor 0.9% Inj 500 ML IV.SIG SCH (06:24)
--- NOTE | 2018-06-06 09:05 | P.PNCC ---
Subjective Subjective Remarks/Hospital Course: Hospital Course: 82yF with history of amyloidosis who presented with GI bleeding, hypotension, and severe anemia. originally admitted to the floor. hgb continued to downtrend despite transfusions. today taken for EGD which found blood in the stomach and clot, but no active bleeding. despite this, hgb still did not improve. taken for bleeding scan which was very +. discussed case with Dr. Garcia/Dr. Garland in IR. review of admission CT abd/pelvis demonstrates possible bleeding at duodenal bulb concerning for ulceration. Taken emergently to IR for embolization which appears to be successful. I evaluated the patient upon arrival to the ICU post-IR procedure. she is stable. complaining of hip pain. hgb has improved appropriately. she denies other complaints. she asked me not to look at her groin sites because "my hips hurt and I am tired." Recent evaluation by bedside RN is without hematoma, and this evaluation is deferred at patient's request (bedside RN to continue to monitor for signs of hematoma). remainder of ROS negative. Subjective: 05/20: doing well. complaining of moderate abdominal pain 5/10. receiving iv dilaudid currently. plan for EGD today. hgb dropped from 7.8 to 7.4, but slightly more tachycardic today, and I am worried about ongoing bleeding, although it does appear to be much slower clinically than yesterday. I discussed with GI EVENT EXECUTIVE that per my conversation with IR, the lesion may be in the 4th portion of the duodenum near the ligament and it may require further investigation that usual EGD, and possibly push enteroscopy. She stated she would convey to the proceduralist. Dr. Shin suggests type II NSTEMI secondary to anemia and I agree completely with his assessment. Given that she is going soon for repeat EGD with anesthesia, will give 1 additional unit of prbc as she clearly has demonstrated she needs higher hematocrit for oxygen carrying capacity to her known ischemic CAD lesions. 05/21: s/p exploratory laparotomy last night. open abdomen. hgb stable. became acutely hypotensive with increased wound vac output one time today- emergently gave 1 unit prbc and 1 unit plt empirically given sudden change in condition. significant 3rd space losses requiring additional resuscitative efforts. remains deeply sedated. off vasopressors. remains intubated. 05/22: more hemodynamically stable today. hgb stable. still high wound-vac output with 300-500mL/12h. uop remains adequate at 70-80mL/hr, but Cr slightly elevated over baseline. unable to start diuresis yet and clinically although developing anasarca in the tissues, appears intravascularly euvolemic but not overloaded. likely will not tolerate diuresis efforts without significant kidney injury at this present juncture. needs bringback and washout in OR, but will leave timing of this to general surgery. 05/23: Received from operating room in good condition. Abdominal wound closed following gastrojejunostomy. Joseph-Vieira drain in region of the duodenal stump, gastric anastomosis. Nasogastric tube to not be moved, good position in stomach, keep to low intermittent suction. Downstream jejunostomy tube for initiation of trickle feeds. Renal function this morning excellent, follow closely. Chemical ventilation for the next couple of days as we observe tension on the abdominal wall. Meticulously avoid fluid overload. At present she is hypertensive and tachycardic for which we will restart propofol and use boluses of fentanyl as needed. Baseline fentanyl drip is infusing. 05/24: Remains warm and well-perfused overnight. Urine output acceptable at 35- 40 cc/h. Tolerated spontaneous breathing trial well this morning, we keep on vent for another 24-48 hours. Generalized edema persists. 05/25: Intubated sedated heavily. Urine output excellent with Lasix overall 3 L. Currently remains grossly fluid overloaded approximately 20 kg up from admission weight. We will start scheduled Lasix 20 every 8 hours with potassium replacement to facilitate ventilator weaning. 05/26: Sedated, orally intubated on mech vent. Being diuresed. Elevated BP on lightening sedation noted. 05/27: Sedated, orally intubated on mechanical ventilation. Being diuresed. Failed CPAP trial earlier. On Cleviprex for hypertension 05/28: Had episode of emesis last night. NGT remains to suction. Febrile overnight with rising WBCs noted. Sputum culture and UA ordered 05/27, getting blood cultures and starting empiric Abx coverage. Being diuresed. Cleviprex gtt being titrated down. 05/29: Arousable, intubated on mechanical ventilation. Follows commands by nodding, squeezes my fingers on command. Febrile yesterday for which she had cultures sent and was started on empiric antibiotic coverage. Blood cultures 3 out of 4 are growing gram-positive cocci. Her central line and PICC line were discontinued yesterday. 05/30: Sedated, arousable, intubated on mechanical ventilation. Follows commands by nodding and squeezing my fingers. CT chest with right hilar mass near right mainstem bronchus. CT abdomen pelvis with postop changes. Being diuresed to mobilize fluid. Daily CPAP trials. Blood cultures with gram- positive cocci. 05/31: Patient remains intubated off all sedation more awake today wakes up easily follows commands. Urine output adequate, sodium is 159. I have placed her on quarter normal saline and increase the free water flushes. Still receiving Lasix 06/01: Extubated yesterday breathing comfortably tolerating well, though lethargic. Serum sodium coming down now 155 with quarter normal saline. Urine output 1.5 L with IV Lasix 06/02: Patient breathing comfortably more alert today. Communicative denies any distress. Had Gastrografin study today results pending. Sodium improved to 151 with hypotonic saline. Urine output 3 L in 24 hours. Set up in stretcher chair for 3 hours yesterday 06/03: Patient continues to breathe comfortably however had episode of emesis earlier today and nasogastric tube is now to low intermittent suction. Electrolytes normalizing now, will convert back to isotonic crystalloid. 06/04: Frequent vomiting persists. Tube feedings delivered through jejunostomy tube appear to be tolerated. Prerenal azotemia persists, exacerbated by GI fluid losses. We will need to hold Lasix for now. Her breathing is remarkably comfortable. 06/05: Azotemia steadily improving and state of hydration about normal right now. We will continue to replace gastric losses as necessary. Her state of confusion fluctuates during the course of the day but otherwise her neurologic status appears normal. Fortunately, she is tolerating enteral feeding through her jejunostomy tube and we are able to maintain her nutritional status. Her platelets have rebounded to the point where the hematology service feels comfortable restarting her DVT prophylaxis. 06/06: We will convert to free water intravenous fluids with dextrose to correct developing azotemia. Upper gastrointestinal fluid losses are larger than not predicted. Serum osmolality elevated. Patient remains alert and conversant. Objective Vital Signs / I&O: Vital Signs 12/14/18 09:20 06/05/18 10:00 06/05/18 10:42 Temperature Pulse Rate 103 H 102 H Respiratory Rate Blood Pressure 138/64 113/63 Pulse Oximetry 97 99 97 06/05/18 11:00 06/05/18 12:00 06/05/18 13:00 Temperature 98.4 F Pulse Rate 100 H 107 H 113 H Respiratory Rate Blood Pressure 153/67 H 133/59 L 143/65 H Pulse Oximetry 97 96 97 06/05/18 14:00 06/05/18 15:00 06/05/18 16:00 Temperature 98.9 F Pulse Rate 112 H 108 H 109 H Respiratory Rate Blood Pressure 164/69 H 158/70 H 160/67 H Pulse Oximetry 94 L 97 98 06/05/18 17:00 06/05/18 18:00 06/05/18 19:00 Temperature 98.7 F Pulse Rate 108 H 106 H 102 H Respiratory Rate 16 Blood Pressure 161/67 H 165/74 H 158/70 H Pulse Oximetry 97 97 96 06/05/18 20:00 06/05/18 21:00 06/05/18 22:00 Temperature Pulse Rate 104 H 104 H 104 H Respiratory Rate 18 16 16 Blood Pressure 158/70 H 163/70 H 159/68 H Pulse Oximetry 96 96 97 06/05/18 23:00 06/06/18 00:00 06/06/18 02:00 Temperature 98.6 F Pulse Rate 99 H 110 H 111 H Respiratory Rate 18 16 16 Blood Pressure 107/52 L 148/69 H 172/73 H Pulse Oximetry 100 99 99 06/06/18 03:00 06/06/18 04:00 06/06/18 05:00 Temperature Pulse Rate 105 H 108 H 113 H Respiratory Rate 18 16 18 Blood Pressure 151/84 H 155/70 H 151/68 H Pulse Oximetry 98 97 95 06/06/18 05:34 06/06/18 06:00 06/06/18 07:00 Temperature Pulse Rate 111 H 111 H Respiratory Rate 18 Blood Pressure 147/67 H 154/66 H Pulse Oximetry 98 98 100 06/06/18 08:00 06/06/18 08:24 Temperature 97.5 F L Pulse Rate 103 H Respiratory Rate 18 Blood Pressure 156/70 H Pulse Oximetry 100 100 Intake & Output 06/05/18 06/06/18 06/06/18 18:59 06:59 18:59 Intake Total 1994 1282 / 1282 Output Total 1450 / 1450 1000 / 1000 Balance 545 / 545 282 / 282 Weight 72 kg Intake: IV 1335 / 1335 100 / 100 Protonix Inj 80 MG In NS Inj 100 / 100 100 / 100 100 ML @ 10 mls/hr IV.CONT Q10H [facility] Rx#:[id number] KCl Inj 20 MEQ In LR 1000 mL 720 / 720 Inj 1,000 ML @ 80 mls/hr IV. CONT .[id number] [facility] Rx#:[id number] Vancomycin Inj 1,500 MG In NS 515 / 515 Inj 500 ML @ 250 mls/hr IV.SIG Q24H [facility] Rx#:[id number] Tube Feeding 600 / 600 1182 / 1182 Tube Irrigant 60 / 60 Output: Stool 200 / 200 Urine Amount (Catheter) 750 / 750 700 / 700 Indwelling Urethral Catheter 750 / 750 700 / 700 Gastric Drainage 500 / 500 300 / 300 Left Nare Nasogastric Tube 300 / 300 Right Nare Nasogastric Tube 500 / 500 Other: Date of Last Bowel Movement 06/05/18 06/05/18 06/05/18 Result Diagrams: 06/06/18 04:20 06/07/18 04:11 Objective Remarks: GENERAL: In no acute distress. Calm. HEENT: Normocephalic. Atraumatic. CHEST: Clear bilaterally, normal spontaneous excursions. Acceptable cough effort. CARDIOVASCULAR: Normal S1-S2. Regular normal rate and rhythm. No JVD. ABDOMEN: Fascia closed, postsurgical wound intact, abdominal binder remains in place. Soft, nondistended. Bowel sounds present. MUSCULOSKELETAL: Minimal bilateral foot and ankle edema. Extremities warm and well perfused. NEUROLOGICAL: Patient is alert and awake. Follows commands x4, appears comfortable, no focal deficits. Assessment and Plan - Assessment and Plan Plan: Assessment: 82yF with amyloidosis and active GI bleed. s/p emergent IA embolization 05/19. s/p EGD 05/19 and again 05/20 with ischemia present. s/p emergent exploratory laparotomy with duodenal and jejunal resection, initially left in discontinuity with open abdomen, and now reconstructed with abdominal wall closure. Scheduled Lasix for aggressive diuresis. Upper GI bleed Acute hypoxic and hypercarbic respiratory failure-resolved s/p emergent ex lap with duodenal and jejunal resection, initially left in discontinuity with open abdomen 05/20 Now reconstructed with abdominal wall closure. Severe acute anemia secondary to blood loss requiring transfusion- persistent duodenal ulcer Type II NSTEMI secondary to demand ischemia from severe anemia s/p EGD 05/19, 05/20. s/p emergent IR embolization 05/19 severe acute thrombocytopenia - ITP improving acute protein calorie malnutrition- moderate to severe Fluid overload sepsis Pneumonia Staph aureus bacteremia Right hilar mass H/o Right lower lobectomy, and adenoca lung Plan: - Extubated 05/31/2018 tolerating well. - Abx with azactam, zyvox, flagyl via G tube. ID following. micafungin added by ID on 05/28. - Blood cultures from 05/28 growing MSSA. Sputum culture Citrobacter and staph aureus - Pulmonary consult requested for right hilar mass on CT chest done on 05/29. Per Dr. Pack's note, daughter Nohemy Davis wants to hold off bronchoscopy. Once better patient can make the decision herself - Serial hemoglobin, transfuse to keep hgb > 7 - serially check platelets, transfuse to keep plt > 50k. Tapering solumedrol, platelets remain acceptable. - tube feeds per general surgery, through jejunostomy. NGT to suction. Gastrografin study completed; very slow gastric emptying. - Strict intake output, monitor and replete elect lytes, follow BUN and creatinine. - ICU electrolyte replacement protocol - SCDs. Restart subcu heparin per Heme-onc. - Start D5 and water with 20 mEq KCl per liter Overall impression: Slowly improving, now extubated and breathing comfortably, remains weak. Source of bacteremia remains unclear but she appears well covered and is getting stronger. Fluid status appears about right but a little behind in free water.
[2018-06-06] MEDS: Heparin Central Flush 100 UNIT/ML 5 ML Vial IV.FLUSH SCH (09:33)
[2018-06-06] MEDS: KCL 20 mEq/Dextrose 5% Inj 1,000 ML IV.CONT SCH (09:38)
[2018-06-06] MEDS: amLODIPine 5 MG Tablet J-TUBE SCH (09:41)
[2018-06-06] MEDS: Sennosides Liq 8.8 MG/5 ML UDC PO SCH ×2 (09:41→20:11)
[2018-06-06] MEDS: Lisinopril 5 MG Tablet PO SCH (09:41)
[2018-06-06] MEDS: Potassium Chloride 25 MEQ Effervescent Tablet NG/OG SCH ×2 (09:41→20:12)
[2018-06-06] MEDS: Enoxaparin Inj 40 MG/0.4 ML Syringe SQ SCH (09:41)
[2018-06-06] MEDS: Metoprolol Tartrate 25 MG Tablet PO SCH ×2 (09:41→20:12)
[2018-06-06] MEDS: fentaNYL Citrate Inj 100 MCG/2 ML Ampul IV.PUSH PRN ×4 (09:42→20:12)
[2018-06-06] MEDS: Docusate Sodium Liq 100 MG/10 ML UDC PO SCH ×2 (09:42→20:12)
[2018-06-06] MEDS: Artificial Tears Opth Oint 3.5 GM Tube EACH EYE SCH ×2 (09:43→22:11)
[2018-06-06] MEDS: MethylPREDNISolone Sod Succinate Inj 40 MG/ML Vial IV.PUSH SCH (09:43)
--- NOTE | 2018-06-06 14:53 | P.PNGS ---
Subjective Patient reports: no new complaints, other Interval history: DAILY PROGRESS NOTE FOR SURGICAL ATTENDING, DR. FLORENTIN REDDY Patient had projectile vomiting after NG tube was clamped Physical Exam Vital signs: Vital Signs 06/05/18 15:00 06/05/18 16:00 06/05/18 17:00 Temperature 98.9 F Pulse Rate 108 H 109 H 108 H Respiratory Rate Blood Pressure 158/70 H 160/67 H 161/67 H Pulse Oximetry 97 98 97 06/05/18 18:00 06/05/18 19:00 06/05/18 20:00 Temperature 98.7 F Pulse Rate 106 H 102 H 104 H Respiratory Rate 16 18 Blood Pressure 165/74 H 158/70 H 158/70 H Pulse Oximetry 97 96 96 06/05/18 21:00 06/05/18 22:00 06/05/18 23:00 Temperature Pulse Rate 104 H 104 H 99 H Respiratory Rate 16 16 18 Blood Pressure 163/70 H 159/68 H 107/52 L Pulse Oximetry 96 97 100 06/06/18 00:00 06/06/18 02:00 06/06/18 03:00 Temperature 98.6 F Pulse Rate 110 H 111 H 105 H Respiratory Rate 16 16 18 Blood Pressure 148/69 H 172/73 H 151/84 H Pulse Oximetry 99 99 98 06/06/18 04:00 06/06/18 05:00 06/06/18 05:34 Temperature Pulse Rate 108 H 113 H Respiratory Rate 16 18 Blood Pressure 155/70 H 151/68 H Pulse Oximetry 97 95 98 06/06/18 06:00 06/06/18 07:00 06/06/18 08:00 Temperature 97.5 F L Pulse Rate 111 H 111 H 103 H Respiratory Rate 18 18 Blood Pressure 147/67 H 154/66 H 156/70 H Pulse Oximetry 98 100 100 06/06/18 08:24 06/06/18 09:00 06/06/18 10:00 Temperature Pulse Rate 103 H 103 H Respiratory Rate Blood Pressure 150/68 H 151/67 H Pulse Oximetry 100 97 99 06/06/18 11:00 06/06/18 12:00 06/06/18 12:02 Temperature 97.1 F L Pulse Rate 89 89 87 Respiratory Rate 18 Blood Pressure 155/71 H Pulse Oximetry 98 97 06/06/18 13:00 06/06/18 14:00 Temperature Pulse Rate 92 H 99 H Respiratory Rate 18 Blood Pressure 138/63 143/65 H Pulse Oximetry 97 98 Intake & Output 06/05/18 06/06/18 06/06/18 18:59 06:59 18:59 Intake Total 1994 / 1994 1282 / 1282 1417.5 / 1417.5 Output Total 1450 / 1450 1000 / 1000 Balance 545 / 545 282 / 282 1417.5 / 1417.5 Weight 72 kg Intake: IV 1335 / 1335 100 / 100 1417.5 / 1417.5 Protonix Inj 80 MG In NS Inj 100 / 100 100 / 100 100 / 100 100 ML @ 10 mls/hr IV.CONT Q10H [facility] Rx#:[id number] KCl Inj 20 MEQ In LR 1000 mL 720 / 720 Inj 1,000 ML @ 80 mls/hr IV. CONT .[id number] [facility] Rx#:[id number] 1/2 Normal Saline Inj 1,000 ML 800 / 800 @ 42 mls/hr IV.CONT .[id number] [facility] Rx#:[id number] Vancomycin Inj 1,750 MG In NS 515 / 515 517.5 / 517.5 Inj 500 ML @ 250 mls/hr IV.SIG Q24H [facility] Rx#:[id number] Tube Feeding 600 / 600 1182 / 1182 Tube Irrigant 60 / 60 Output: Stool 200 / 200 Urine Amount (Catheter) 750 / 750 700 / 700 Indwelling Urethral Catheter 750 / 750 700 / 700 Gastric Drainage 500 / 500 300 / 300 Left Nare Nasogastric Tube 300 / 300 Right Nare Nasogastric Tube 500 / 500 Other: Date of Last Bowel Movement 06/05/18 06/05/18 06/05/18 Narrative: She is tolerating tube feeds at 50 an hour. Her abdomen remains soft and nondistended. She has bowel function. NG drainage remains bilious. - Urinary Catheter Management Indwelling Urethral Catheter Cath placed during this visit: yes Reason for continuing: Hourly intake/output Insertion date: 05/20/18 Insertion time: 19:55 Results - Labs 06/06/18 04:20 06/06/18 04:20 Laboratory Results - last 24 hr 06/06/18 06/06/18 04:20 04:20 WBC 12.8 H RBC 2.85 L Hgb 8.3 L Hct 25.1 L MCV 88.3 MCH 29.1 MCHC 33.0 RDW 15.3 Plt Count 119 L MPV 9.4 Neut % (Auto) 90.6 H Lymph % (Auto) 4.1 L Jennings % (Auto) 3.8 Eos % (Auto) 1.1 Baso % (Auto) 0.4 Neut # (Auto) 11.6 H Lymph # (Auto) 0.5 L Jennings # (Auto) 0.5 Eos # (Auto) 0.1 Baso # (Auto) 0.0 WBC Differential . Differential Comment Auto diff final Sodium 153 H Potassium 3.5 Chloride 125 H Carbon Dioxide 18.5 L Anion Gap 10 BUN 31 H Creatinine 0.64 Estimated GFR 89 Random Glucose 109 H Calcium 8.2 L Prealbumin 37 - Imaging Imaging: ITS Impressions GI Bleed Scan Nuclear Medicine 05/19/18 00:00 CONCLUSION: 1. 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 Patient was emergently brought to the interventional radiology department from the nuclear medicine department for angiography and intervention. Mesenteric Arteriogram 05/19/18 14:37 CONCLUSION: 1. 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 2. 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 PICC Line Insertion 05/20/18 00:00 CONCLUSION: 1. Uncomplicated central venous Power PICC line placement. 2. The PICC line can be used immediately. Abdomen X-Ray 05/28/18 05:23 CONCLUSION: No dilated bowel loops. Abdomen/Pelvis CT 05/29/18 00:00 CONCLUSION: 1. Since the prior CT, midline laparotomy with gastrojejunostomy has been performed. Anastomosis appears patent. There is a nasogastric tube which extends beyond the site of surgery and is in the first portion of the duodenum. Unchanged metallic structure near the ligament of Treitz, etiology uncertain. 2. A jejunostomy tube has also been placed without evidence of an acute complication. 3. Small, nonspecific free fluid in the pelvic cavity. No evidence of abscess. 4. No acute solid organ abnormality. Cysts of both kidneys and nonobstructing stones of the left kidney are again noted. 5. Sigmoid colon diverticulosis without diverticulitis. Chest CT 05/29/18 11:52 CONCLUSION: 1. 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 2. Pneumonia with volume loss in the right lower lobe. 3. Coronary artery calcification. 4. Emphysema. Gastrografin Study 06/02/18 00:00 CONCLUSION: 1. During the first 30 minutes there was only minimal passage of contrast into the gastrojejunostomy. 2. On the delayed 1 hour film there is apparent contrast noted in the more distal small bowel. Chest X-Ray 06/03/18 06:00 CONCLUSION: No acute cardiopulmonary disease identified. Assessment and Plan - Assessment (1) GI bleed Code(s): K92.2 - Gastrointestinal hemorrhage, unspecified Status: Acute Plan: 82 year old female s/p exploratory laparotomy, gastrojejunostomy, closure, j tube -Continue NGT to LIWS as output still remains high no more clamping ngt -No meds through NGT at this time -Tolerating TF at goal of 50 cc/hr -PT/rehab----added OT - Attending Attestation NOTE FOR SURGICAL ATTENDING, DR. FLORENTIN REDDY I attest that I had a [id number] encounter with the patient on the same day, and personally performed and documented my assessment and findings in the medical record. The following services were provided during this hospital visit: Chart data review, vital sign assessments/reviewing monitor data Review of consultations notes if present. Medication orders/review and/or management Ordering and/or reviewing lab tests Ordering and/or interpreting/reviewing x-rays and/or diagnostic studies Care of the patient and discussion of the patient with the care team Documentation time To help prompt me to consider important information that might be impacting today's encounter and assessment, Information from prior notes written by myself or my colleagues may have been "brought forward/copy and pasted" into today's note.
[2018-06-07] MEDS: fentaNYL Citrate Inj 100 MCG/2 ML Ampul IV.PUSH PRN ×6 (00:56→20:05)
[2018-06-07] MEDS: KCL 20 mEq/Dextrose 5% Inj 1,000 ML IV.CONT SCH ×2 (02:39→06:13)
[2018-06-07] MEDS: Vancomycin Inj 1,750 MG in Sodium Chlor 0.9% Inj 500 ML IV.SIG SCH (05:06)
[2018-06-07 05:41] LABS: Anion Gap 8 meq/L (5-15); Blood Urea Nitrogen 29 mg/dL (7-18); Calcium 8.3 mg/dL (8.5-10.1); Carbon Dioxide 20.6 meq/L (21.0-32.0); Chloride 118 meq/L (98-107); Glomerular Filtration Rate Greater Than 89 mL/min (>89); Glucose,Random 103 mg/dL (74-106); Potassium 3.7 meq/L (3.5-5.1); Sodium 147 meq/L (136-145)
[2018-06-07] MEDS: MethylPREDNISolone Sod Succinate Inj 40 MG/ML Vial IV.PUSH SCH (08:05)
[2018-06-07] MEDS: Sennosides Liq 8.8 MG/5 ML UDC PO SCH ×2 (08:05→20:05)
[2018-06-07] MEDS: Lisinopril 5 MG Tablet PO SCH (08:05)
[2018-06-07] MEDS: amLODIPine 5 MG Tablet J-TUBE SCH (08:05)
[2018-06-07] MEDS: Docusate Sodium Liq 100 MG/10 ML UDC PO SCH ×2 (08:05→20:03)
[2018-06-07] MEDS: Metoprolol Tartrate 25 MG Tablet PO SCH ×2 (08:05→20:04)
[2018-06-07] MEDS: Enoxaparin Inj 40 MG/0.4 ML Syringe SQ SCH (08:05)
[2018-06-07] MEDS: Potassium Chloride 25 MEQ Effervescent Tablet NG/OG SCH ×2 (08:06→20:04)
[2018-06-07] MEDS: Heparin Central Flush 100 UNIT/ML 5 ML Vial IV.FLUSH SCH (08:06)
[2018-06-07] MEDS: Artificial Tears Opth Oint 3.5 GM Tube EACH EYE SCH ×2 (08:07→20:05)
--- NOTE | 2018-06-07 08:59 | P.PNCC ---
Subjective Subjective Remarks/Hospital Course: Hospital Course: 82yF with history of amyloidosis who presented with GI bleeding, hypotension, and severe anemia. originally admitted to the floor. hgb continued to downtrend despite transfusions. today taken for EGD which found blood in the stomach and clot, but no active bleeding. despite this, hgb still did not improve. taken for bleeding scan which was very +. discussed case with Dr. Garcia/Dr. Garland in IR. review of admission CT abd/pelvis demonstrates possible bleeding at duodenal bulb concerning for ulceration. Taken emergently to IR for embolization which appears to be successful. I evaluated the patient upon arrival to the ICU post-IR procedure. she is stable. complaining of hip pain. hgb has improved appropriately. she denies other complaints. she asked me not to look at her groin sites because "my hips hurt and I am tired." Recent evaluation by bedside RN is without hematoma, and this evaluation is deferred at patient's request (bedside RN to continue to monitor for signs of hematoma). remainder of ROS negative. Subjective: 05/20: doing well. complaining of moderate abdominal pain 5/10. receiving iv dilaudid currently. plan for EGD today. hgb dropped from 7.8 to 7.4, but slightly more tachycardic today, and I am worried about ongoing bleeding, although it does appear to be much slower clinically than yesterday. I discussed with [facility] that per my conversation with IR, the lesion may be in the 4th portion of the duodenum near the ligament and it may require further investigation that usual EGD, and possibly push enteroscopy. She stated she would convey to the proceduralist. Dr. Shin suggests type II NSTEMI secondary to anemia and I agree completely with his assessment. Given that she is going soon for repeat EGD with anesthesia, will give 1 additional unit of prbc as she clearly has demonstrated she needs higher hematocrit for oxygen carrying capacity to her known ischemic CAD lesions. 05/21: s/p exploratory laparotomy last night. open abdomen. hgb stable. became acutely hypotensive with increased wound vac output one time today- emergently gave 1 unit prbc and 1 unit plt empirically given sudden change in condition. significant 3rd space losses requiring additional resuscitative efforts. remains deeply sedated. off vasopressors. remains intubated. 05/22: more hemodynamically stable today. hgb stable. still high wound-vac output with 300-500mL/12h. uop remains adequate at 70-80mL/hr, but Cr slightly elevated over baseline. unable to start diuresis yet and clinically although developing anasarca in the tissues, appears intravascularly euvolemic but not overloaded. likely will not tolerate diuresis efforts without significant kidney injury at this present juncture. needs bringback and washout in OR, but will leave timing of this to general surgery. 05/23: Received from operating room in good condition. Abdominal wound closed following gastrojejunostomy. Joseph-Vieira drain in region of the duodenal stump, gastric anastomosis. Nasogastric tube to not be moved, good position in stomach, keep to low intermittent suction. Downstream jejunostomy tube for initiation of trickle feeds. Renal function this morning excellent, follow closely. Chemical ventilation for the next couple of days as we observe tension on the abdominal wall. Meticulously avoid fluid overload. At present she is hypertensive and tachycardic for which we will restart propofol and use boluses of fentanyl as needed. Baseline fentanyl drip is infusing. 05/24: Remains warm and well-perfused overnight. Urine output acceptable at 35- 40 cc/h. Tolerated spontaneous breathing trial well this morning, we keep on vent for another 24-48 hours. Generalized edema persists. 05/25: Intubated sedated heavily. Urine output excellent with Lasix overall 3 L. Currently remains grossly fluid overloaded approximately 20 kg up from admission weight. We will start scheduled Lasix 20 every 8 hours with potassium replacement to facilitate ventilator weaning. 05/26: Sedated, orally intubated on mech vent. Being diuresed. Elevated BP on lightening sedation noted. 05/27: Sedated, orally intubated on mechanical ventilation. Being diuresed. Failed CPAP trial earlier. On Cleviprex for hypertension 05/28: Had episode of emesis last night. NGT remains to suction. Febrile overnight with rising WBCs noted. Sputum culture and UA ordered 05/27, getting blood cultures and starting empiric Abx coverage. Being diuresed. Cleviprex gtt being titrated down. 05/29: Arousable, intubated on mechanical ventilation. Follows commands by nodding, squeezes my fingers on command. Febrile yesterday for which she had cultures sent and was started on empiric antibiotic coverage. Blood cultures 3 out of 4 are growing gram-positive cocci. Her central line and PICC line were discontinued yesterday. 05/30: Sedated, arousable, intubated on mechanical ventilation. Follows commands by nodding and squeezing my fingers. CT chest with right hilar mass near right mainstem bronchus. CT abdomen pelvis with postop changes. Being diuresed to mobilize fluid. Daily CPAP trials. Blood cultures with gram- positive cocci. 05/31: Patient remains intubated off all sedation more awake today wakes up easily follows commands. Urine output adequate, sodium is 159. I have placed her on quarter normal saline and increase the free water flushes. Still receiving Lasix 06/01: Extubated yesterday breathing comfortably tolerating well, though lethargic. Serum sodium coming down now 155 with quarter normal saline. Urine output 1.5 L with IV Lasix 06/02: Patient breathing comfortably more alert today. Communicative denies any distress. Had Gastrografin study today results pending. Sodium improved to 151 with hypotonic saline. Urine output 3 L in 24 hours. Set up in stretcher chair for 3 hours yesterday 06/03: Patient continues to breathe comfortably however had episode of emesis earlier today and nasogastric tube is now to low intermittent suction. Electrolytes normalizing now, will convert back to isotonic crystalloid. 06/04: Frequent vomiting persists. Tube feedings delivered through jejunostomy tube appear to be tolerated. Prerenal azotemia persists, exacerbated by GI fluid losses. We will need to hold Lasix for now. Her breathing is remarkably comfortable. 06/05: Azotemia steadily improving and state of hydration about normal right now. We will continue to replace gastric losses as necessary. Her state of confusion fluctuates during the course of the day but otherwise her neurologic status appears normal. Fortunately, she is tolerating enteral feeding through her jejunostomy tube and we are able to maintain her nutritional status. Her platelets have rebounded to the point where the hematology service feels comfortable restarting her DVT prophylaxis. 06/06: We will convert to free water intravenous fluids with dextrose to correct developing azotemia. Upper gastrointestinal fluid losses are larger than not predicted. Serum osmolality elevated. Patient remains alert and conversant. 06/07: Azotemia has slowly reversing. Fluid balance appears about right now. She is well oriented today and conversant. She remains frustrated at her predicament, appropriately so. Because of her Sjogren's syndrome her mouth stays very dry -we will try to figure out a way to bring her some relief. Objective Vital Signs / I&O: Vital Signs 06/06/18 09:00 06/06/18 10:00 06/06/18 11:00 Temperature Pulse Rate 103 H 103 H 89 Respiratory Rate Blood Pressure 150/68 H 151/67 H 155/71 H Pulse Oximetry 97 99 98 06/06/18 12:00 06/06/18 12:02 06/06/18 13:00 Temperature 97.1 F L Pulse Rate 89 87 92 H Respiratory Rate 18 18 Blood Pressure 138/63 Pulse Oximetry 97 97 06/06/18 14:00 06/06/18 15:00 06/06/18 16:00 Temperature 97.8 F Pulse Rate 99 H 99 H 99 H Respiratory Rate 18 18 Blood Pressure 143/65 H 123/58 L 143/62 H Pulse Oximetry 98 98 98 06/06/18 17:00 06/06/18 18:00 06/06/18 19:00 Temperature Pulse Rate 100 H 99 H 99 H Respiratory Rate Blood Pressure 135/61 142/64 H 139/63 Pulse Oximetry 98 96 98 06/06/18 20:00 06/06/18 20:34 06/06/18 21:00 Temperature 97.7 F Pulse Rate 99 H 68 Respiratory Rate 18 Blood Pressure 127/59 L 122/58 L Pulse Oximetry 99 98 100 06/06/18 22:00 06/06/18 23:00 06/07/18 00:00 Temperature 97.7 F Pulse Rate 86 87 90 Respiratory Rate Blood Pressure 145/65 H 160/67 H 166/121 H Pulse Oximetry 97 99 95 06/07/18 00:03 06/07/18 00:44 06/07/18 01:00 Temperature Pulse Rate 93 H 95 H Respiratory Rate Blood Pressure 163/72 H 154/66 H Pulse Oximetry 99 100 99 06/07/18 02:00 06/07/18 03:00 06/07/18 04:00 Temperature 97.9 F Pulse Rate 94 H 91 H 95 H Respiratory Rate Blood Pressure 160/69 H 147/62 H 155/67 H Pulse Oximetry 100 98 100 06/07/18 05:00 06/07/18 06:00 06/07/18 07:00 Temperature Pulse Rate 98 H 96 H 97 H Respiratory Rate Blood Pressure 145/61 H 137/60 109/88 Pulse Oximetry 92 L 100 06/07/18 07:32 06/07/18 07:48 06/07/18 08:00 Temperature 97.5 F L Pulse Rate 95 H 83 Respiratory Rate 18 Blood Pressure 109/88 Pulse Oximetry 99 98 Intake & Output 06/06/18 06/07/18 06/07/18 18:59 06:59 18:59 Intake Total 2008.5 / 2008.5 1496 / 1496 517.5 / 517.5 Output Total 1650 / 1650 900 / 900 Balance 359.5 / 359.5 596 / 596 517.5 / 517.5 Weight 69.6 kg Intake: IV 1417.5 / 1417.5 1000 / 1000 517.5 / 517.5 D5W + KCL 20 mEq Inj 1,000 ML @ 1000 / 1000 50 mls/hr IV.CONT .Q20H [facility] Rx #:[id number] Protonix Inj 80 MG In NS Inj 100 / 100 100 ML @ 10 mls/hr IV.CONT Q10H [facility] Rx#:[id number] 1/2 Normal Saline Inj 1,000 ML 800 / 800 @ 42 mls/hr IV.CONT .[id number] [facility] Rx#:[id number] Vancomycin Inj 1,750 MG In NS 517.5 / 517.5 517.5 / 517.5 Inj 500 ML @ 250 mls/hr IV.SIG Q24H [facility] Rx#:[id number] Tube Feeding 592 / 592 496 / 496 Output: Stool 200 / 200 Urine Amount (Catheter) 750 / 750 600 / 600 Indwelling Urethral Catheter 750 / 750 600 / 600 Gastric Drainage 700 / 700 300 / 300 Left Nare Nasogastric Tube 700 / 700 Right Nare Nasogastric Tube 300 / 300 Other: Date of Last Bowel Movement 06/05/18 06/05/18 06/05/18 Result Diagrams: 06/06/18 04:20 06/07/18 04:11 Objective Remarks: GENERAL: In no acute distress. Calm. Frustrated. HEENT: Normocephalic. Atraumatic. CHEST: Clear bilaterally, normal spontaneous excursions. CARDIOVASCULAR: Normal S1-S2. Regular normal rate and rhythm. No JVD. ABDOMEN: Fascia closed, postsurgical wound intact, abdominal binder remains in place. Soft, nondistended. Active bowel sounds. MUSCULOSKELETAL: Minimal bilateral foot and ankle edema. Extremities warm and well perfused. NEUROLOGICAL: Patient is alert and awake. Follows commands x4, appears comfortable, no focal deficits. Assessment and Plan - Assessment and Plan Plan: Assessment: 82yF with amyloidosis and active GI bleed. s/p emergent IA embolization 05/19. s/p EGD 05/19 and again 05/20 with ischemia present. s/p emergent exploratory laparotomy with duodenal and jejunal resection, initially left in discontinuity with open abdomen, and now reconstructed with abdominal wall closure. She is clinically a little dry. Upper GI bleed Acute hypoxic and hypercarbic respiratory failure-resolved s/p emergent ex lap with duodenal and jejunal resection, initially left in discontinuity with open abdomen 05/20 Now reconstructed with abdominal wall closure. Severe acute anemia secondary to blood loss requiring transfusion- persistent duodenal ulcer Type II NSTEMI secondary to demand ischemia from severe anemia s/p EGD 05/19, 05/20. s/p emergent IR embolization 05/19 severe acute thrombocytopenia - ITP improving acute protein calorie malnutrition- moderate to severe Fluid overload sepsis Pneumonia Staph aureus bacteremia Right hilar mass H/o Right lower lobectomy, and adenoca lung Plan: - Extubated 05/31/2018 tolerating well. - Abx with azactam, zyvox, flagyl via G tube. ID following. micafungin added by ID on 05/28. - Blood cultures from 05/28 growing MSSA. Sputum culture Citrobacter and staph aureus - Pulmonary consult requested for right hilar mass on CT chest done on 05/29. Per Dr. Pack's note, daughter Nohemy Davis wants to hold off bronchoscopy. Once better patient can make the decision herself - Serial hemoglobin, transfuse to keep hgb > 7 - serially check platelets, transfuse to keep plt > 50k. Tapering solumedrol, platelets remain acceptable. - tube feeds per general surgery, through jejunostomy. NGT to suction. Gastrografin study completed; very slow gastric emptying. - Strict intake output, monitor and replete elect lytes, follow BUN and creatinine. - ICU electrolyte replacement protocol - SCDs. Restart subcu heparin per Heme-onc. -Continue D5 and water with 20 mEq KCl per liter Overall impression: Slowly improving, now extubated and breathing comfortably, but remains weak. Source of bacteremia remains unclear but she appears well covered and is getting stronger. Fluid status appears about right but a remains little behind in free water.
--- NOTE | 2018-06-07 18:39 | P.PN ---
Subjective Interval history: She is easily arousable and appears to be resting comfortably. Physical Exam Vital signs: Vital Signs 06/06/18 19:00 06/06/18 20:00 06/06/18 20:34 Temperature 97.7 F Pulse Rate 99 H 99 H Respiratory Rate 18 Blood Pressure 139/63 127/59 L Pulse Oximetry 98 99 98 06/06/18 21:00 06/06/18 22:00 06/06/18 23:00 Temperature Pulse Rate 68 86 87 Respiratory Rate Blood Pressure 122/58 L 145/65 H 160/67 H Pulse Oximetry 100 97 99 06/07/18 00:00 06/07/18 00:03 06/07/18 00:44 Temperature 97.7 F Pulse Rate 90 93 H Respiratory Rate Blood Pressure 166/121 H 163/72 H Pulse Oximetry 95 99 100 06/07/18 01:00 06/07/18 02:00 06/07/18 03:00 Temperature Pulse Rate 95 H 94 H 91 H Respiratory Rate Blood Pressure 154/66 H 160/69 H 147/62 H Pulse Oximetry 99 100 98 06/07/18 04:00 06/07/18 05:00 06/07/18 06:00 Temperature 97.9 F Pulse Rate 95 H 98 H 96 H Respiratory Rate Blood Pressure 155/67 H 145/61 H 137/60 Pulse Oximetry 100 92 L 100 06/07/18 07:00 06/07/18 07:32 06/07/18 07:48 Temperature 97.5 F L Pulse Rate 97 H 95 H Respiratory Rate 18 Blood Pressure 109/88 109/88 Pulse Oximetry 99 98 06/07/18 07:57 06/07/18 08:00 06/07/18 08:02 Temperature Pulse Rate 97 H 96 H 97 H Respiratory Rate Blood Pressure 150/63 H 135/62 138/63 Pulse Oximetry 98 100 98 06/07/18 08:32 06/07/18 09:00 06/07/18 09:02 Temperature Pulse Rate 79 72 73 Respiratory Rate Blood Pressure 110/54 L 113/56 L Pulse Oximetry 98 100 97 06/07/18 10:00 06/07/18 10:11 06/07/18 11:00 Temperature Pulse Rate 81 85 94 H Respiratory Rate Blood Pressure 127/60 Pulse Oximetry 96 95 06/07/18 12:00 06/07/18 12:16 06/07/18 13:00 Temperature 97.5 F L Pulse Rate 93 H 91 H 80 Respiratory Rate 18 Blood Pressure 91/50 L 91/50 L Pulse Oximetry 94 L 97 97 06/07/18 13:54 06/07/18 14:00 06/07/18 14:27 Temperature Pulse Rate 89 88 Respiratory Rate 18 Blood Pressure 106/53 L Pulse Oximetry 98 96 06/07/18 15:00 06/07/18 16:00 06/07/18 16:09 Temperature 97.5 F L Pulse Rate 95 H 92 H 90 Respiratory Rate 18 Blood Pressure 128/60 128/60 Pulse Oximetry 98 95 97 06/07/18 17:00 06/07/18 18:00 Temperature Pulse Rate 90 93 H Respiratory Rate 18 18 Blood Pressure Pulse Oximetry 100 100 Intake & Output 06/06/18 06/07/18 06/07/18 18:59 06:59 18:59 Intake Total 2009.5 / 2008.5 1496 / 1496 1186.5 / 1186.5 Output Total 1650 / 1650 900 / 900 2100 / 2100 Balance 359.5 / 359.5 596 / 596 -913.5 / -913.5 Weight 69.6 kg Intake: IV 1417.5 / 1417.5 1000 / 1000 517.5 / 517.5 D5W + KCL 20 mEq Inj 1,000 ML @ 1000 / 1000 50 mls/hr IV.CONT .Q20H [facility] Rx #:[id number] Protonix Inj 80 MG In NS Inj 100 / 100 100 ML @ 10 mls/hr IV.CONT Q10H [facility] Rx#:[id number] 1/2 Normal Saline Inj 1,000 ML 800 / 800 @ 42 mls/hr IV.CONT .[id number] [facility] Rx#:[id number] Vancomycin Inj 1,750 MG In NS 517.5 / 517.5 517.5 / 517.5 Inj 500 ML @ 250 mls/hr IV.SIG Q24H [facility] Rx#:[id number] Tube Feeding 592 / 592 496 / 496 669 / 669 Output: Stool 200 / 200 0 / 0 Urine Amount (Catheter) 750 / 750 600 / 600 550 / 550 Indwelling Urethral Catheter 750 / 750 600 / 600 550 / 550 Gastric Drainage 700 / 700 300 / 300 1550 / 1550 Left Nare Nasogastric Tube 700 / 700 Right Nare Nasogastric Tube 300 / 300 1550 / 1550 Other: Date of Last Bowel Movement 06/05/18 06/05/18 06/05/18 - Constitutional no acute distress - Routine Respiratory Exam Present: CTA bilaterally - Routine Abdominal Exam Present: soft, normoactive bowel sounds Comments: Dressing dry Tolerating enteral feeding at 60 ml per hour - Urinary Catheter Management Indwelling Urethral Catheter Cath placed during this visit: yes Reason for continuing: Hourly intake/output Insertion date: 05/20/18 Insertion time: 19:55 Results - Labs CBC & Chem 7: 06/06/18 04:20 06/07/18 04:11 Laboratory Results - last 24 hr 06/07/18 04:11 Sodium 147 H Potassium 3.7 Chloride 118 H Carbon Dioxide 20.6 L Anion Gap 8 BUN 29 H Creatinine 0.56 Estimated GFR Greater than 89 Random Glucose 103 Calcium 8.3 L Assessment and Plan - Assessment (1) GI bleed Code(s): K92.2 - Gastrointestinal hemorrhage, unspecified Status: Acute Plan: Stable; leave NG tube in as she gets very nauseous when it is out at this time. On enteral feeding; increased to 60 mill per hour - Attending Attestation I attest that I had a [id number] encounter with the patient on the same day, and personally performed and documented my assessment and findings in the medical record. The following services were provided during this hospital visit: Chart data review, vital sign assessments/reviewing monitor data Review of consultation notes if present Medication orders/review and/or management Ordering and/or reviewing lab tests Ordering and/or interpreting/reviewing x-rays and/or diagnostic studies Care of the patient and discussion of the patient with the care team Documentation time To help prompt me to consider important information that might be impacting today's encounter and assessment, Information from prior notes written by myself or my colleagues may have been "brought forward/copy and pasted" into today's note.
[2018-06-08] MEDS: fentaNYL Citrate Inj 100 MCG/2 ML Ampul IV.PUSH PRN ×9 (00:14→22:27)
[2018-06-08] MEDS: Vancomycin Inj 1,750 MG in Sodium Chlor 0.9% Inj 500 ML IV.SIG SCH (05:14)
[2018-06-08 05:52] LABS: Carbon Dioxide 19.2 meq/L (21.0-32.0)
[2018-06-08] MEDS: Artificial Tears Opth Oint 3.5 GM Tube EACH EYE SCH ×2 (08:01→20:01)
[2018-06-08] MEDS: Enoxaparin Inj 40 MG/0.4 ML Syringe SQ SCH (08:01)
[2018-06-08] MEDS: MethylPREDNISolone Sod Succinate Inj 40 MG/ML Vial IV.PUSH SCH (08:02)
[2018-06-08] MEDS: amLODIPine 5 MG Tablet J-TUBE SCH (08:02)
[2018-06-08] MEDS: Potassium Chloride 25 MEQ Effervescent Tablet NG/OG SCH ×2 (08:02→20:01)
[2018-06-08] MEDS: Metoprolol Tartrate 25 MG Tablet PO SCH ×2 (08:02→20:01)
[2018-06-08] MEDS: Sennosides Liq 8.8 MG/5 ML UDC PO SCH ×2 (08:03→20:01)
[2018-06-08] MEDS: Docusate Sodium Liq 100 MG/10 ML UDC PO SCH ×2 (08:03→20:01)
[2018-06-08] MEDS: Lisinopril 5 MG Tablet PO SCH (08:03)
[2018-06-08] MEDS: KCL 20 mEq/Dextrose 5% Inj 1,000 ML IV.CONT SCH ×3 (08:04→20:01)
[2018-06-08] MEDS: Heparin Central Flush 100 UNIT/ML 5 ML Vial IV.FLUSH SCH (08:04)
--- NOTE | 2018-06-08 10:55 | P.PNGS ---
Subjective Interval history: Pleasantly confused She is asking for the blanket to be up by her shoulders Physical Exam Vital signs: Vital Signs 06/07/18 11:00 06/07/18 12:00 06/07/18 12:16 Temperature 97.5 F L Pulse Rate 94 H 93 H 91 H Respiratory Rate 18 Blood Pressure 91/50 L 91/50 L Pulse Oximetry 95 94 L 97 06/07/18 13:00 06/07/18 13:54 06/07/18 14:00 Temperature Pulse Rate 80 89 88 Respiratory Rate Blood Pressure 106/53 L Pulse Oximetry 97 98 96 06/07/18 14:27 06/07/18 15:00 06/07/18 16:00 Temperature 97.5 F L Pulse Rate 95 H 92 H Respiratory Rate 18 18 Blood Pressure 128/60 Pulse Oximetry 98 95 06/07/18 16:09 06/07/18 17:00 06/07/18 18:00 Temperature Pulse Rate 90 90 93 H Respiratory Rate 18 18 Blood Pressure 128/60 Pulse Oximetry 97 100 100 06/07/18 19:00 06/07/18 20:00 06/07/18 21:00 Temperature 98.1 F Pulse Rate 95 H 91 H 70 Respiratory Rate 18 Blood Pressure Pulse Oximetry 97 99 100 06/07/18 21:47 06/07/18 22:00 06/07/18 23:00 Temperature Pulse Rate 73 74 90 Respiratory Rate Blood Pressure 130/63 117/58 L 133/62 Pulse Oximetry 96 98 99 06/08/18 00:00 06/08/18 01:00 06/08/18 02:00 Temperature 97.6 F Pulse Rate 95 H 86 84 Respiratory Rate Blood Pressure 144/63 H 118/54 L 128/58 L Pulse Oximetry 86 L 06/08/18 03:00 06/08/18 04:00 06/08/18 05:00 Temperature 98.7 F Pulse Rate 94 H 89 91 H Respiratory Rate Blood Pressure 145/63 H 116/64 142/67 H Pulse Oximetry 06/08/18 06:00 06/08/18 07:00 06/08/18 08:00 Temperature 97.5 F L Pulse Rate 91 H 94 H 96 H Respiratory Rate 18 18 Blood Pressure 143/65 H 141/62 H 125/58 L Pulse Oximetry 95 06/08/18 09:00 06/08/18 10:00 Temperature Pulse Rate 69 75 Respiratory Rate Blood Pressure 110/53 L 110/51 L Pulse Oximetry 98 98 Intake & Output 06/07/18 06/08/18 06/08/18 18:59 06:59 18:59 Intake Total 1186.5 / 1186.5 791 / 791 517.50 / 517.50 Output Total 2100 / 2100 1200 / 1200 Balance -913.5 / -913.5 -409 / -409 517.50 / 517.50 Weight 71.5 kg Intake: IV 517.5 / 517.5 517.50 / 517.50 Vancomycin Inj 1,750 MG In NS 517.5 / 517.5 517.50 / 517.50 Inj 500 ML @ 250 mls/hr IV.SIG Q24H [facility] Rx#:[id number] Oral 120 / 120 Tube Feeding 669 / 669 551 / 551 Tube Irrigant 120 / 120 Water Bolus Amount 0 / 0 Output: Stool 0 / 0 0 / 0 Urine Amount (Catheter) 550 / 550 700 / 700 Indwelling Urethral Catheter 550 / 550 700 / 700 Gastric Drainage 1550 / 1550 500 / 500 Right Nare Nasogastric Tube 1550 / 1550 500 / 500 Other: Date of Last Bowel Movement 06/05/18 06/07/18 06/07/18 Narrative: Awake; confused NGT to LIWS Abd: soft; midline incision with mel; J tube with TF - Urinary Catheter Management Indwelling Urethral Catheter Cath placed during this visit: yes Reason for continuing: Hourly intake/output Insertion date: 05/20/18 Insertion time: 19:55 Results - Labs 06/06/18 04:20 06/08/18 04:29 Laboratory Results - last 24 hr 06/08/18 04:29 Sodium 142 Potassium 4.0 Chloride 113 H Carbon Dioxide 19.2 L Anion Gap 10 BUN 39 H Creatinine 0.78 Estimated GFR 71 L Random Glucose 94 Calcium 9.0 - Imaging Imaging: ITS Impressions GI Bleed Scan Nuclear Medicine 05/19/18 00:00 CONCLUSION: 1. 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 Patient was emergently brought to the interventional radiology department from the nuclear medicine department for angiography and intervention. Mesenteric Arteriogram 05/19/18 14:37 CONCLUSION: 1. 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 2. 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 PICC Line Insertion 05/20/18 00:00 CONCLUSION: 1. Uncomplicated central venous Power PICC line placement. 2. The PICC line can be used immediately. Abdomen X-Ray 05/28/18 05:23 CONCLUSION: No dilated bowel loops. Abdomen/Pelvis CT 05/29/18 00:00 CONCLUSION: 1. Since the prior CT, midline laparotomy with gastrojejunostomy has been performed. Anastomosis appears patent. There is a nasogastric tube which extends beyond the site of surgery and is in the first portion of the duodenum. Unchanged metallic structure near the ligament of Treitz, etiology uncertain. 2. A jejunostomy tube has also been placed without evidence of an acute complication. 3. Small, nonspecific free fluid in the pelvic cavity. No evidence of abscess. 4. No acute solid organ abnormality. Cysts of both kidneys and nonobstructing stones of the left kidney are again noted. 5. Sigmoid colon diverticulosis without diverticulitis. Chest CT 05/29/18 11:52 CONCLUSION: 1. 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 2. Pneumonia with volume loss in the right lower lobe. 3. Coronary artery calcification. 4. Emphysema. Gastrografin Study 06/02/18 00:00 CONCLUSION: 1. During the first 30 minutes there was only minimal passage of contrast into the gastrojejunostomy. 2. On the delayed 1 hour film there is apparent contrast noted in the more distal small bowel. Chest X-Ray 06/03/18 06:00 CONCLUSION: No acute cardiopulmonary disease identified. Assessment and Plan - Assessment (1) GI bleed Code(s): K92.2 - Gastrointestinal hemorrhage, unspecified Status: Acute Plan: 82 year old female s/p exploratory laparotomy, gastrojejunostomy, closure, j tube -Continue NGT to LIWS as output still remains high -No meds through NGT at this time -Tolerating TF at goal of 50 cc/hr -PT/OT -Will plan for staple removal last this week - Plan I personally evaluated the patient in room 1309 today. She is awake and alert and interactive. She is remains pleasantly confused. She appears comfortable. The remainder of her mel were removed from her midline incision. There is no drainage or erythema. Half-inch brown Steri-Strips were applied. Feeding tube remains intact without erythema around the entry site. Her tube feeds are now at 60 an hour. The exam, history, and the medical decision-making described in the above note were completed with the assistance of the mid-level provider. I reviewed and agree with the findings presented. I attest that I had a [id number] encounter with the patient on the same day, and personally performed and documented my assessment and findings in the medical record.
--- NOTE | 2018-06-08 13:11 | P.DIET ---
Nutritional Evaluation Type of nutrition evaluation: follow-up Nutrition consult regarding: Tube Feeding Objective - Diagnosis GI Bleed - Objective % IBW: 136 (IBW = 125#) Body Weight Used for Calculations: IBW (56.8kg) Energy Needs - Lower Range (kCal/kg): 25 Energy Needs - Upper Range (kCal/kg): 30 Lower Limit kCal/kg (kCals): 1,420 Upper Limit kCal/kg (kCals): 1,704 Lower Limit Protein Factor (Grams per Kg): 1.2 Upper Limit Protein Factor (Grams per Kg): 1.6 Lower Protein Needs (Protein): 68 Upper Protein Needs (Protein): 91 Dietitian Reviewed in Medical Record: Current diet, Curent medications, Intake & Output, Labs, Medical history, Tube feeding Diet Order: NPO Objective Comments: Current clinical course per MD: amyloidosis and active GI bleed. s/p emergent IA embolization 05/19. s/p EGD 05/19 and again 05/20 with ischemia present. s/p emergent exploratory laparotomy with duodenal and jejunal resection, initially left in discontinuity with open abdomen, and now reconstructed with abdominal wall closure. 05/23 GJ tube placement Assessment Assessment: Pt at high nutritional risk r/t the need for a TF. Pt extubated (05/31) and ng-t remains in place d/t nausea. Pt is currently receiving Vital High Protein @ 60 mls/hr which provides 1440 kcals, 126 gms protein and 1204 mls of free water. Labs, wts and clinical course reviewed. Recommendations: Continue Vital High Protein @ 60 mls/hr Dietitian to Monitor: Lab values, Intake & Output, Tube feeding tolerance, Weight change, Medical course
--- NOTE | 2018-06-08 13:21 | P.PNCC ---
Subjective Subjective Remarks/Hospital Course: Hospital Course: 82yF with history of amyloidosis who presented with GI bleeding, hypotension, and severe anemia. originally admitted to the floor. hgb continued to downtrend despite transfusions. today taken for EGD which found blood in the stomach and clot, but no active bleeding. despite this, hgb still did not improve. taken for bleeding scan which was very +. discussed case with Dr. Garcia/Dr. Garland in IR. review of admission CT abd/pelvis demonstrates possible bleeding at duodenal bulb concerning for ulceration. Taken emergently to IR for embolization which appears to be successful. I evaluated the patient upon arrival to the ICU post-IR procedure. she is stable. complaining of hip pain. hgb has improved appropriately. she denies other complaints. she asked me not to look at her groin sites because "my hips hurt and I am tired." Recent evaluation by bedside RN is without hematoma, and this evaluation is deferred at patient's request (bedside RN to continue to monitor for signs of hematoma). remainder of ROS negative. Subjective: 05/20: doing well. complaining of moderate abdominal pain 5/10. receiving iv dilaudid currently. plan for EGD today. hgb dropped from 7.8 to 7.4, but slightly more tachycardic today, and I am worried about ongoing bleeding, although it does appear to be much slower clinically than yesterday. I discussed with GI LENDING MANAGER that per my conversation with IR, the lesion may be in the 4th portion of the duodenum near the ligament and it may require further investigation that usual EGD, and possibly push enteroscopy. She stated she would convey to the proceduralist. Dr. Shin suggests type II NSTEMI secondary to anemia and I agree completely with his assessment. Given that she is going soon for repeat EGD with anesthesia, will give 1 additional unit of prbc as she clearly has demonstrated she needs higher hematocrit for oxygen carrying capacity to her known ischemic CAD lesions. 05/21: s/p exploratory laparotomy last night. open abdomen. hgb stable. became acutely hypotensive with increased wound vac output one time today- emergently gave 1 unit prbc and 1 unit plt empirically given sudden change in condition. significant 3rd space losses requiring additional resuscitative efforts. remains deeply sedated. off vasopressors. remains intubated. 05/22: more hemodynamically stable today. hgb stable. still high wound-vac output with 300-500mL/12h. uop remains adequate at 70-80mL/hr, but Cr slightly elevated over baseline. unable to start diuresis yet and clinically although developing anasarca in the tissues, appears intravascularly euvolemic but not overloaded. likely will not tolerate diuresis efforts without significant kidney injury at this present juncture. needs bringback and washout in OR, but will leave timing of this to general surgery. 05/23: Received from operating room in good condition. Abdominal wound closed following gastrojejunostomy. Joseph-Vieira drain in region of the duodenal stump, gastric anastomosis. Nasogastric tube to not be moved, good position in stomach, keep to low intermittent suction. Downstream jejunostomy tube for initiation of trickle feeds. Renal function this morning excellent, follow closely. Chemical ventilation for the next couple of days as we observe tension on the abdominal wall. Meticulously avoid fluid overload. At present she is hypertensive and tachycardic for which we will restart propofol and use boluses of fentanyl as needed. Baseline fentanyl drip is infusing. 05/24: Remains warm and well-perfused overnight. Urine output acceptable at 35- 40 cc/h. Tolerated spontaneous breathing trial well this morning, we keep on vent for another 24-48 hours. Generalized edema persists. 05/25: Intubated sedated heavily. Urine output excellent with Lasix overall 3 L. Currently remains grossly fluid overloaded approximately 20 kg up from admission weight. We will start scheduled Lasix 20 every 8 hours with potassium replacement to facilitate ventilator weaning. 05/26: Sedated, orally intubated on mech vent. Being diuresed. Elevated BP on lightening sedation noted. 05/27: Sedated, orally intubated on mechanical ventilation. Being diuresed. Failed CPAP trial earlier. On Cleviprex for hypertension 05/28: Had episode of emesis last night. NGT remains to suction. Febrile overnight with rising WBCs noted. Sputum culture and UA ordered 05/27, getting blood cultures and starting empiric Abx coverage. Being diuresed. Cleviprex gtt being titrated down. 05/29: Arousable, intubated on mechanical ventilation. Follows commands by nodding, squeezes my fingers on command. Febrile yesterday for which she had cultures sent and was started on empiric antibiotic coverage. Blood cultures 3 out of 4 are growing gram-positive cocci. Her central line and PICC line were discontinued yesterday. 05/30: Sedated, arousable, intubated on mechanical ventilation. Follows commands by nodding and squeezing my fingers. CT chest with right hilar mass near right mainstem bronchus. CT abdomen pelvis with postop changes. Being diuresed to mobilize fluid. Daily CPAP trials. Blood cultures with gram- positive cocci. 05/31: Patient remains intubated off all sedation more awake today wakes up easily follows commands. Urine output adequate, sodium is 159. I have placed her on quarter normal saline and increase the free water flushes. Still receiving Lasix 06/01: Extubated yesterday breathing comfortably tolerating well, though lethargic. Serum sodium coming down now 155 with quarter normal saline. Urine output 1.5 L with IV Lasix 06/02: Patient breathing comfortably more alert today. Communicative denies any distress. Had Gastrografin study today results pending. Sodium improved to 151 with hypotonic saline. Urine output 3 L in 24 hours. Set up in stretcher chair for 3 hours yesterday 06/03: Patient continues to breathe comfortably however had episode of emesis earlier today and nasogastric tube is now to low intermittent suction. Electrolytes normalizing now, will convert back to isotonic crystalloid. 06/04: Frequent vomiting persists. Tube feedings delivered through jejunostomy tube appear to be tolerated. Prerenal azotemia persists, exacerbated by GI fluid losses. We will need to hold Lasix for now. Her breathing is remarkably comfortable. 06/05: Azotemia steadily improving and state of hydration about normal right now. We will continue to replace gastric losses as necessary. Her state of confusion fluctuates during the course of the day but otherwise her neurologic status appears normal. Fortunately, she is tolerating enteral feeding through her jejunostomy tube and we are able to maintain her nutritional status. Her platelets have rebounded to the point where the hematology service feels comfortable restarting her DVT prophylaxis. 06/06: We will convert to free water intravenous fluids with dextrose to correct developing azotemia. Upper gastrointestinal fluid losses are larger than not predicted. Serum osmolality elevated. Patient remains alert and conversant. 06/07: Resting comfortably on nasal cannula. Tolerating J-tube feeds. Following commands. Continues to have significant NG output Objective Vital Signs / I&O: Vital Signs 06/07/18 13:54 06/07/18 14:00 06/07/18 14:27 Temperature Pulse Rate 89 88 Respiratory Rate 18 Blood Pressure 106/53 L Pulse Oximetry 98 96 06/07/18 15:00 06/07/18 16:00 06/07/18 16:09 Temperature 97.5 F L Pulse Rate 95 H 92 H 90 Respiratory Rate 18 Blood Pressure 128/60 128/60 Pulse Oximetry 98 95 97 06/07/18 17:00 06/07/18 18:00 06/07/18 19:00 Temperature Pulse Rate 90 93 H 95 H Respiratory Rate 18 18 Blood Pressure Pulse Oximetry 100 100 97 06/07/18 20:00 06/07/18 21:00 06/07/18 21:47 Temperature 98.1 F Pulse Rate 91 H 70 73 Respiratory Rate 18 Blood Pressure 130/63 Pulse Oximetry 99 100 96 06/07/18 22:00 06/07/18 23:00 06/08/18 00:00 Temperature 97.6 F Pulse Rate 74 90 95 H Respiratory Rate Blood Pressure 117/58 L 133/62 144/63 H Pulse Oximetry 98 99 86 L 06/08/18 01:00 06/08/18 02:00 06/08/18 03:00 Temperature Pulse Rate 86 84 94 H Respiratory Rate Blood Pressure 118/54 L 128/58 L 145/63 H Pulse Oximetry 06/08/18 04:00 06/08/18 05:00 06/08/18 06:00 Temperature 98.7 F Pulse Rate 89 91 H 91 H Respiratory Rate Blood Pressure 116/64 142/67 H 143/65 H Pulse Oximetry 06/08/18 07:00 06/08/18 08:00 06/08/18 09:00 Temperature 97.5 F L Pulse Rate 94 H 96 H 69 Respiratory Rate 18 18 Blood Pressure 141/62 H 125/58 L 110/53 L Pulse Oximetry 95 98 06/08/18 10:00 06/08/18 11:00 06/08/18 12:00 Temperature 97.6 F Pulse Rate 75 85 87 Respiratory Rate 18 Blood Pressure 110/51 L 117/56 L 127/60 Pulse Oximetry 98 95 98 Intake & Output 06/07/18 06/08/18 06/08/18 18:59 06:59 18:59 Intake Total 1186.5 / 1186.5 791 / 791 517.50 / 517.50 Output Total 2100 / 2100 1200 / 1200 Balance -913.5 / -913.5 -409 / -409 517.50 / 517.50 Weight 71.5 kg Intake: IV 517.5 / 517.5 517.50 / 517.50 Vancomycin Inj 1,750 MG In NS 517.5 / 517.5 517.50 / 517.50 Inj 500 ML @ 250 mls/hr IV.SIG Q24H [facility] Rx#:[id number] Oral 120 / 120 Tube Feeding 669 / 669 551 / 551 Tube Irrigant 120 / 120 Water Bolus Amount 0 / 0 Output: Stool 0 / 0 0 / 0 Urine Amount (Catheter) 550 / 550 700 / 700 Indwelling Urethral Catheter 550 / 550 700 / 700 Gastric Drainage 1550 / 1550 500 / 500 Right Nare Nasogastric Tube 1550 / 1550 500 / 500 Other: Date of Last Bowel Movement 06/05/18 06/07/18 06/07/18 Result Diagrams: 06/06/18 04:20 06/08/18 04:29 Objective Remarks: GENERAL: In no acute distress. Calm. HEENT: Normocephalic. Atraumatic. CHEST: Clear bilaterally, normal spontaneous excursions. Acceptable cough effort. CARDIOVASCULAR: Normal S1-S2. Regular normal rate and rhythm. No JVD. ABDOMEN: Fascia closed, postsurgical wound intact, abdominal binder remains in place. Soft, nondistended. Bowel sounds present. MUSCULOSKELETAL: Minimal bilateral foot and ankle edema. Extremities warm and well perfused. NEUROLOGICAL: Patient is alert and awake. Follows commands x4, appears comfortable, no focal deficits. Assessment and Plan - Assessment and Plan Plan: Assessment: 82yF with amyloidosis and active GI bleed. s/p emergent IA embolization 05/19. s/p EGD 05/19 and again 05/20 with ischemia present. s/p emergent exploratory laparotomy with duodenal and jejunal resection, initially left in discontinuity with open abdomen, and now reconstructed with abdominal wall closure. Scheduled Lasix for aggressive diuresis. Upper GI bleed Acute hypoxic and hypercarbic respiratory failure-resolved s/p emergent ex lap with duodenal and jejunal resection, initially left in discontinuity with open abdomen 05/20 Now reconstructed with abdominal wall closure. Severe acute anemia secondary to blood loss requiring transfusion- persistent duodenal ulcer Type II NSTEMI secondary to demand ischemia from severe anemia s/p EGD 05/19, 05/20. s/p emergent IR embolization 05/19 severe acute thrombocytopenia - ITP improving acute protein calorie malnutrition- moderate to severe Fluid overload sepsis Pneumonia Staph aureus bacteremia Right hilar mass H/o Right lower lobectomy, and adenoca lung Plan: - Extubated 05/31/2018 tolerating well. - Abx with azactam, zyvox, flagyl via G tube. ID following. micafungin added by ID on 05/28. - Blood cultures from 05/28 growing MSSA. Sputum culture Citrobacter and staph aureus - Pulmonary consult requested for right hilar mass on CT chest done on 05/29. Per Dr. Pack's note, daughter Nohemy Davis wants to hold off bronchoscopy. Once better patient can make the decision herself - Serial hemoglobin, transfuse to keep hgb > 7 - serially check platelets, transfuse to keep plt > 50k. Tapering solumedrol, platelets remain acceptable. - tube feeds per general surgery, through jejunostomy. NGT to suction. Gastrografin study completed; very slow gastric emptying. - Strict intake output, monitor and replete elect lytes, follow BUN and creatinine. - ICU electrolyte replacement protocol - SCDs. Restart subcu heparin per Heme-onc. - D5 and water with 20 mEq KCl per liter Overall impression: Slowly improving, now extubated and breathing comfortably, remains weak. Source of bacteremia remains unclear but she appears well covered and is getting stronger. Fluid status appears about right but a little behind in free water.
--- NOTE | 2018-06-08 13:24 | P.PNID ---
Subjective Remarks: pt is tolerating TF she remains very confused today repeat BC negative Antibiotics: vancomycin Allergies/Adverse Reactions: Allergies Sulfa (Sulfonamide Antibiotics) Allergy (Severe, Verified 05/17/18 03:34) Anaphylaxis amoxicillin Allergy (Mild, Verified 05/17/18 03:34) nausea codeine Allergy (Mild, Verified 05/17/18 03:34) constipation Objective Vital Signs 06/07/18 13:54 06/07/18 14:00 06/07/18 14:27 Temperature Pulse Rate 89 88 Respiratory Rate 18 Blood Pressure 106/53 L Pulse Oximetry 98 96 06/07/18 15:00 06/07/18 16:00 06/07/18 16:09 Temperature 97.5 F L Pulse Rate 95 H 92 H 90 Respiratory Rate 18 Blood Pressure 128/60 128/60 Pulse Oximetry 98 95 97 06/07/18 17:00 06/07/18 18:00 06/07/18 19:00 Temperature Pulse Rate 90 93 H 95 H Respiratory Rate 18 18 Blood Pressure Pulse Oximetry 100 100 97 06/07/18 20:00 06/07/18 21:00 06/07/18 21:47 Temperature 98.1 F Pulse Rate 91 H 70 73 Respiratory Rate 18 Blood Pressure 130/63 Pulse Oximetry 99 100 96 06/07/18 22:00 06/07/18 23:00 06/08/18 00:00 Temperature 97.6 F Pulse Rate 74 90 95 H Respiratory Rate Blood Pressure 117/58 L 133/62 144/63 H Pulse Oximetry 98 99 86 L 06/08/18 01:00 06/08/18 02:00 06/08/18 03:00 Temperature Pulse Rate 86 84 94 H Respiratory Rate Blood Pressure 118/54 L 128/58 L 145/63 H Pulse Oximetry 06/08/18 04:00 06/08/18 05:00 06/08/18 06:00 Temperature 98.7 F Pulse Rate 89 91 H 91 H Respiratory Rate Blood Pressure 116/64 142/67 H 143/65 H Pulse Oximetry 06/08/18 07:00 06/08/18 08:00 06/08/18 09:00 Temperature 97.5 F L Pulse Rate 94 H 96 H 69 Respiratory Rate 18 18 Blood Pressure 141/62 H 125/58 L 110/53 L Pulse Oximetry 95 98 06/08/18 10:00 06/08/18 11:00 06/08/18 12:00 Temperature 97.6 F Pulse Rate 75 85 87 Respiratory Rate 18 Blood Pressure 110/51 L 117/56 L 127/60 Pulse Oximetry 98 95 98 Intake & Output 06/07/18 06/08/18 06/08/18 18:59 06:59 18:59 Intake Total 1186.5 / 1186.5 791 / 791 517.50 / 517.50 Output Total 2100 / 2100 1200 / 1200 Balance -913.5 / -913.5 -409 / -409 517.50 / 517.50 Weight 71.5 kg Intake: IV 517.5 / 517.5 517.50 / 517.50 Vancomycin Inj 1,750 MG In NS 517.5 / 517.5 517.50 / 517.50 Inj 500 ML @ 250 mls/hr IV.SIG Q24H [facility] Rx#:[id number] Oral 120 / 120 Tube Feeding 669 / 669 551 / 551 Tube Irrigant 120 / 120 Water Bolus Amount 0 / 0 Output: Stool 0 / 0 0 / 0 Urine Amount (Catheter) 550 / 550 700 / 700 Indwelling Urethral Catheter 550 / 550 700 / 700 Gastric Drainage 1550 / 1550 500 / 500 Right Nare Nasogastric Tube 1550 / 1550 500 / 500 Other: Date of Last Bowel Movement 06/05/18 06/07/18 06/07/18 06/01/18 10:43 Blood - Peripheral Aerobic Blood Culture - Final No growth in 5 days 06/01/18 10:43 Blood - Peripheral Anaerobic Blood Culture - Final No growth in 5 days 06/01/18 10:48 Blood - Peripheral Aerobic Blood Culture - Final No growth in 5 days 06/01/18 10:48 Blood - Peripheral Anaerobic Blood Culture - Final No growth in 5 days Lab - Chemistry Results 06/07/18 06/08/18 04:11 04:29 Sodium 147 H 142 Potassium 3.7 4.0 Chloride 118 H 113 H Carbon Dioxide 20.6 L 19.2 L Anion Gap 8 10 BUN 29 H 39 H Creatinine 0.56 0.78 Estimated GFR Greater than 89 71 L Random Glucose 103 94 Calcium 8.3 L 9.0 Imaging: ITS Impressions GI Bleed Scan Nuclear Medicine 05/19/18 00:00 CONCLUSION: 1. 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 Patient was emergently brought to the interventional radiology department from the nuclear medicine department for angiography and intervention. Mesenteric Arteriogram 05/19/18 14:37 CONCLUSION: 1. 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 2. 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 PICC Line Insertion 05/20/18 00:00 CONCLUSION: 1. Uncomplicated central venous Power PICC line placement. 2. The PICC line can be used immediately. Abdomen X-Ray 05/28/18 05:23 CONCLUSION: No dilated bowel loops. Abdomen/Pelvis CT 05/29/18 00:00 CONCLUSION: 1. Since the prior CT, midline laparotomy with gastrojejunostomy has been performed. Anastomosis appears patent. There is a nasogastric tube which extends beyond the site of surgery and is in the first portion of the duodenum. Unchanged metallic structure near the ligament of Treitz, etiology uncertain. 2. A jejunostomy tube has also been placed without evidence of an acute complication. 3. Small, nonspecific free fluid in the pelvic cavity. No evidence of abscess. 4. No acute solid organ abnormality. Cysts of both kidneys and nonobstructing stones of the left kidney are again noted. 5. Sigmoid colon diverticulosis without diverticulitis. Chest CT 05/29/18 11:52 CONCLUSION: 1. 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 2. Pneumonia with volume loss in the right lower lobe. 3. Coronary artery calcification. 4. Emphysema. Gastrografin Study 06/02/18 00:00 CONCLUSION: 1. During the first 30 minutes there was only minimal passage of contrast into the gastrojejunostomy. 2. On the delayed 1 hour film there is apparent contrast noted in the more distal small bowel. Chest X-Ray 06/03/18 06:00 CONCLUSION: No acute cardiopulmonary disease identified. Physical Exam: GENERAL: NAD SKIN: Warm and dry. HEAD: Atraumatic. Normocephalic. EYES: Pupils equal and round. No scleral icterus. No injection or drainage. ENT: No nasal bleeding or discharge. Mucous membranes pink and moist. NECK: Trachea midline. No JVD. CARDIOVASCULAR: Regular rate and rhythm. RESPIRATORY: No accessory muscle use. Clear to auscultation. Breath sounds equal bilaterally. GASTROINTESTINAL: Abdomen soft, non tender, quite distended. dressing in place MUSCULOSKELETAL: Extremities without clubbing, cyanosis, or edema. No obvious deformities. NEUROLOGICAL: awake, opens eyes, follows commands confused; incoherent speech PSYCHIATRIC: calm , cooperative Assessment and Plan - Plan GI bleeding POD3 exploratory laparotomy, gastrojejunostomy, closure, j tube Acute VDRF - resolved fever, leukocytosis - resolved Ileus ? Intraabdominal HIgh grade MSSA bacteremia - bactermia resolved after lines were removed 3.3 cm masslike opacity in the right hilum with RLL consolidation Last CXR is clear cont vancomycin for MSSA bacteremia Likely will need at least 4 weeks of tx for MSSA from [facility] (06/01) monitor CBC BMP vanco troughs weekly will see as needed
--- NOTE | 2018-06-08 13:30 | P.PNWCN ---
Wound Care Nurse Consult Additional information: Patient not seen on [address] [place] [address] for possible pressure ulcer to coccyx. Spoke with RN Libia Delgado [address] [place] [address], per RN patient has intact blanchable erythema to buttock and coccyx areas. Wound care is not necessary at this time. Please reconsult wound care nurse for open wounds.
[2018-06-08] MEDS: Lidocaine 5% Patch T-DERMAL SCH (14:54)
[2018-06-09] MEDS: fentaNYL Citrate Inj 100 MCG/2 ML Ampul IV.PUSH PRN ×10 (00:01→20:55)
[2018-06-09 05:42] LABS: Baso % (Auto) 0.2 % (0.0-2.0); Eos # (Auto) 0.1 th/mm3 (0.0-0.4); Eos % (Auto) 1.8 % (0.0-4.0); Hematocrit 26.3 % (35.0-46.0); Hemoglobin 8.8 gm/dL (11.6-15.3); Lymph # (Auto) 0.6 th/mm3 (1.0-4.8); Lymph % (Auto) 6.6 % (9.0-44.0); Mean Corpuscular HGB Conc 33.3 % (32.0-36.0); Mean Corpuscular Hemoglobin 29.5 pg (27.0-34.0); Mean Corpuscular Volume 88.7 fL (80.0-100.0); Mean Platelet Volume 9.2 fL (7.0-11.0); Mono # (Auto) 0.3 th/mm3 (0.0-0.9); Neut # (Auto) 7.3 th/mm3 (1.8-7.7); Neut % (Auto) 87.4 % (16.0-70.0); Platelet Count 124 th/mm3 (150-450); Red Blood Count 2.96 mil/mm3 (4.00-5.30); Red Cell Distribution Width 16.6 % (11.6-17.2); White Blood Count 8.3 th/mm3 (4.0-11.0)
[2018-06-09] MEDS ORDERED: Pharmacy Ordered Lab Info OTHER ONE (05:45)
[2018-06-09 06:13] LABS: Albumin 2.5 g/dL (3.4-5.0); Anion Gap 9 meq/L (5-15); Aspartate Aminotransferase 43 U/L (15-37); Blood Urea Nitrogen 41 mg/dL (7-18); Carbon Dioxide 18.5 meq/L (21.0-32.0); Chloride 110 meq/L (98-107); Glomerular Filtration Rate 65 mL/min (>89); Glucose,Random 99 mg/dL (74-106); Sodium 137 meq/L (136-145)
[2018-06-09] MEDS: Vancomycin Inj 1,750 MG in Sodium Chlor 0.9% Inj 500 ML IV.SIG SCH (06:14)
[2018-06-09 06:15] LABS: Alanine Aminotransferase 131 U/L (10-53)
[2018-06-09 06:16] LABS: Alkaline Phosphatase 128 U/L (45-117); Total Protein 6.1 g/dL (6.4-8.2)
[2018-06-09] MEDS: Enoxaparin Inj 40 MG/0.4 ML Syringe SQ SCH (09:05)
[2018-06-09] MEDS: Potassium Chloride 25 MEQ Effervescent Tablet NG/OG SCH ×2 (09:05→22:09)
[2018-06-09] MEDS: Lidocaine 5% Patch T-DERMAL SCH (09:06)
[2018-06-09] MEDS: Docusate Sodium Liq 100 MG/10 ML UDC PO SCH ×2 (09:07→22:09)
[2018-06-09] MEDS: MethylPREDNISolone Sod Succinate Inj 40 MG/ML Vial IV.PUSH SCH (09:07)
[2018-06-09] MEDS: Metoprolol Tartrate 25 MG Tablet PO SCH ×2 (09:09→22:09)
--- NOTE | 2018-06-09 09:42 | P.PNIM ---
Subjective Interval history: Patient reports feeling very tired today. she complains of pain all over. Discuss with RN she has been feeling anxious and is complaining of indigestion. No increased in abdominal pain. NGT in place. Physical Exam Vital signs: Last Vital Signs Temp 98.3 F 06/09/18 00:00 Pulse 92 H 06/09/18 06:00 Resp 14 06/09/18 06:44 BP 120/59 L 06/09/18 06:00 Pulse Ox 99 06/09/18 08:00 Intake & Output 06/07/18 06/08/18 06/09/18 06/10/18 06:59 06:59 06:59 06:59 Intake Total 3505.5 / 3505.5 2977.5 / 2977.5 1657.50 / 1657.50 517.5 / 517.5 Output Total 2550 / 2550 3300 / 3300 3800 / 3800 Balance 955.5 / 955.5 -322.5 / -322.5 -2142.50 / -2142.50 517.5 / 517.5 Weight 69.6 kg 71.5 kg 67.3 kg Narrative: GENERAL: Elderly female. Pleasantly confused at times. CARDIOVASCULAR: Normal rate and regular rhythm without murmurs, gallops, or rubs. RESPIRATORY: Good respiratory efforts. Breath sounds equal and clear to auscultation bilaterally. GASTROINTESTINAL: Abdomen soft, nondistended. J feeding tube in place. NGT is draining. Midline incision with Steri-Strips looks clean and dry. MUSCULOSKELETAL: Extremities without cyanosis, or edema. PSYCH: Calm Urinary Catheter Management Indwelling Urethral Catheter: Cath placed during this visit: yes Urethral indwelling: No Insertion date: 05/20/18 Insertion time: 19:55 Results Labs CBC & Chem 7: 06/09/18 04:33 06/09/18 04:33 Assessment and Plan (1) GI bleed: Code(s): K92.2 - Gastrointestinal hemorrhage, unspecified Status: Acute Plan 82-year-old female with a history significant for amyloidosis with prolonged hospital course and has been under the care of the critical care service for GI bleeding. The patient underwent emergent IA embolization 05/19. s/p EGD 05/19 and again 05/20 with ischemia present. s/p emergent exploratory laparotomy. She is postop resection of fourth portion of duodenum with duodenal diverticulum and proximal jejunum due to GI bleed and ischemic necrosis. She had a gastrojejunostomy and closure of abdominal wall and placement of feeding jejunostomy a couple of weeks ago. Upper GI bleed Acute hypoxic and hypercarbic respiratory failure-resolved s/p emergent ex lap with duodenal and jejunal resection, initially left in discontinuity with open abdomen 05/20 Now reconstructed with abdominal wall closure. Severe acute anemia secondary to blood loss requiring transfusion- persistent duodenal ulcer Type II NSTEMI secondary to demand ischemia from severe anemia s/p EGD 05/19, 05/20. s/p emergent IR embolization 05/19 severe acute thrombocytopenia - ITP improving acute protein calorie malnutrition- moderate to severe Fluid overload sepsis Pneumonia Staph aureus bacteremia Right hilar mass H/o Right lower lobectomy, and adenoca lung Plan: - Extubated 05/31/2018 tolerating well. - Abx with azactam, zyvox, flagyl via G tube. ID following. micafungin added by ID on 05/28. - Blood cultures from 05/28 growing MSSA. Sputum culture Citrobacter and staph aureus - Pulmonary consult requested for right hilar mass on CT chest done on 05/29. Per Dr. Pack's note, daughter Nohemy Davis wants to hold off bronchoscopy. Once better patient can make the decision herself - Serial hemoglobin, transfuse to keep hgb > 7 - serially check platelets, transfuse to keep plt > 50k. Tapering solumedrol, platelets remain acceptable. - tube feeds per general surgery, through jejunostomy. NGT to suction. Gastrografin study completed; very slow gastric emptying. - Strict intake output, monitor and replete elect lytes, follow BUN and creatinine. - ICU electrolyte replacement protocol - SCDs. Restart subcu heparin per Heme-onc. - D5 and water with 20 mEq KCl per liter -Add Protonix. She is negative in fluid balance today. May need to add free water to tube feeding tomorrow. Continue to monitor. Overall impression: Slowly improving, now extubated and breathing comfortably, remains weak. Source of bacteremia remains unclear but she appears well covered and is getting stronger. Monitor fluid status closely. She is losing a lot from NGT. Continue to monitor closely. Continue supportive nutrition through the feeding jejunostomy. Progress Note: Quality VTE Deep Vein Thrombosis/Pulmonary Embolism Present on Admission: No _ (1) GI bleed Qualifiers: GI bleed type/associated pathology: Gastritis type:
[2018-06-09] MEDS: Lisinopril 5 MG Tablet PO SCH (09:48)
[2018-06-09] MEDS: Heparin Central Flush 100 UNIT/ML 5 ML Vial IV.FLUSH SCH (09:48)
[2018-06-09] MEDS: Sennosides Liq 8.8 MG/5 ML UDC PO SCH ×2 (09:48→22:10)
[2018-06-09] MEDS: amLODIPine 5 MG Tablet J-TUBE SCH (09:48)
[2018-06-09] MEDS: Artificial Tears Opth Oint 3.5 GM Tube EACH EYE SCH ×2 (09:48→22:10)
[2018-06-09] MEDS: Pantoprazole Inj 40 MG Vial IV.PUSH SCH ×2 (10:24→22:11)
--- NOTE | 2018-06-09 13:40 | P.PNGS ---
Subjective Patient reports: no new complaints (By RN reports continuous nausea, some anxiety today. NG output greater than 2 L, bilious. Patient awakes and converses normally, still exhibits pleasant confusion. Appears comfortable. Sleep-wake cycles way out of whack.) Physical Exam Vital signs: Vital Signs 06/08/18 14:00 06/08/18 15:00 06/08/18 15:30 Temperature Pulse Rate 79 89 Respiratory Rate 18 18 Blood Pressure 113/54 L 123/60 Pulse Oximetry 98 100 99 06/08/18 16:00 06/08/18 17:00 06/08/18 18:00 Temperature 97.8 F Pulse Rate 89 95 H 97 H Respiratory Rate 18 Blood Pressure 126/60 131/58 L 111/53 L Pulse Oximetry 100 100 99 06/08/18 19:00 06/08/18 20:00 06/08/18 20:35 Temperature 98.6 F Pulse Rate 104 H 95 H Respiratory Rate 16 Blood Pressure 139/62 125/58 L Pulse Oximetry 99 97 06/08/18 21:00 06/08/18 22:00 06/08/18 23:00 Temperature Pulse Rate 70 74 74 Respiratory Rate 18 Blood Pressure 132/63 138/60 121/60 Pulse Oximetry 100 100 97 06/09/18 00:00 06/09/18 00:31 06/09/18 01:00 Temperature 98.3 F Pulse Rate 91 H 88 Respiratory Rate 18 Blood Pressure 119/59 L 136/63 Pulse Oximetry 100 99 06/09/18 01:42 06/09/18 02:00 06/09/18 03:00 Temperature Pulse Rate 87 92 H Respiratory Rate 18 Blood Pressure 115/53 L 108/52 L Pulse Oximetry 100 97 06/09/18 03:03 06/09/18 04:00 06/09/18 04:40 Temperature Pulse Rate 101 H Respiratory Rate 22 20 Blood Pressure 114/71 Pulse Oximetry 06/09/18 05:00 06/09/18 06:00 06/09/18 06:13 Temperature Pulse Rate 95 H 92 H Respiratory Rate 20 Blood Pressure 113/85 120/59 L Pulse Oximetry 97 97 06/09/18 06:44 06/09/18 07:00 06/09/18 08:00 Temperature 98.7 F Pulse Rate 99 H 92 H Respiratory Rate 14 Blood Pressure 105/66 116/56 L Pulse Oximetry 93 L 98 06/09/18 09:00 06/09/18 10:00 06/09/18 11:00 Temperature Pulse Rate 101 H 89 89 Respiratory Rate Blood Pressure 115/55 L 137/64 127/57 L Pulse Oximetry 96 95 93 L 06/09/18 12:00 06/09/18 13:00 06/09/18 13:09 Temperature Pulse Rate 56 L 94 H 92 H Respiratory Rate Blood Pressure 107/53 L 122/59 L 123/57 L Pulse Oximetry 96 96 97 Intake & Output 06/08/18 06/09/18 06/09/18 18:59 06:59 18:59 Intake Total 1082.50 / 1082.50 575 / 575 517.5 / 517.5 Output Total 1850 / 1850 1950 / 1950 Balance -767.50 / -767.50 -1375 / -1375 517.5 / 517.5 Weight 67.3 kg Intake: IV 517.50 / 517.50 517.5 / 517.5 Vancomycin Inj 1,750 MG In NS 517.50 / 517.50 517.5 / 517.5 Inj 500 ML @ 250 mls/hr IV.SIG Q24H [facility] Rx#:[id number] Tube Feeding 565 / 565 575 / 575 Output: Urine Amount (Catheter) 1050 / 1050 700 / 700 Indwelling Urethral Catheter 1050 / 1050 700 / 700 Gastric Drainage 800 / 800 1250 / 1250 Right Nare Nasogastric Tube 800 / 800 1250 / 1250 Other: Date of Last Bowel Movement 06/08/18 06/09/18 06/09/18 # Bowel Movements 1 2 Narrative: Abdomen soft and nondistended. Feeding tube exit site clean without erythema. Midline incision intact with mel removed and Steri-Strips in place. No erythema or drainage. Extremities soft and nonedematous. - Urinary Catheter Management Indwelling Urethral Catheter Cath placed during this visit: yes Reason for continuing: Hourly intake/output Insertion date: 05/20/18 Insertion time: 19:55 Results - Labs 06/09/18 04:33 06/09/18 04:33 Laboratory Results - last 24 hr 06/09/18 06/09/18 06/09/18 04:33 04:33 05:45 WBC 8.3 RBC 2.96 L Hgb 8.8 L Hct 26.3 L MCV 88.7 MCH 29.5 MCHC 33.3 RDW 16.6 Plt Count 124 L MPV 9.2 Neut % (Auto) 87.4 H Lymph % (Auto) 6.[address] [facility] % (Auto) 4.0 Eos % (Auto) 1.8 Baso % (Auto) 0.2 Neut # (Auto) 7.3 Lymph # (Auto) 0.[address] [facility] # (Auto) 0.3 Eos # (Auto) 0.1 Baso # (Auto) 0.0 WBC Differential . Differential Comment Auto diff final Sodium 137 Potassium 4.0 Chloride 110 H Carbon Dioxide 18.5 L Anion Gap 9 BUN 41 H Creatinine 0.84 Estimated GFR 65 L Random Glucose 99 Calcium 9.0 Total Bilirubin 0.3 AST 43 H ALT 131 H Alkaline Phosphatase 128 H Total Protein 6.1 L Albumin 2.5 L Vancomycin Trough 26.0 H - Imaging Imaging: ITS Impressions GI Bleed Scan Nuclear Medicine 05/19/18 00:00 CONCLUSION: 1. 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 Patient was emergently brought to the interventional radiology department from the nuclear medicine department for angiography and intervention. Mesenteric Arteriogram 05/19/18 14:37 CONCLUSION: 1. 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 2. 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 PICC Line Insertion 05/20/18 00:00 CONCLUSION: 1. Uncomplicated central venous Power PICC line placement. 2. The PICC line can be used immediately. Abdomen X-Ray 05/28/18 05:23 CONCLUSION: No dilated bowel loops. Abdomen/Pelvis CT 05/29/18 00:00 CONCLUSION: 1. Since the prior CT, midline laparotomy with gastrojejunostomy has been performed. Anastomosis appears patent. There is a nasogastric tube which extends beyond the site of surgery and is in the first portion of the duodenum. Unchanged metallic structure near the ligament of Treitz, etiology uncertain. 2. A jejunostomy tube has also been placed without evidence of an acute complication. 3. Small, nonspecific free fluid in the pelvic cavity. No evidence of abscess. 4. No acute solid organ abnormality. Cysts of both kidneys and nonobstructing stones of the left kidney are again noted. 5. Sigmoid colon diverticulosis without diverticulitis. Chest CT 05/29/18 11:52 CONCLUSION: 1. 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 2. Pneumonia with volume loss in the right lower lobe. 3. Coronary artery calcification. 4. Emphysema. Gastrografin Study 06/02/18 00:00 CONCLUSION: 1. During the first 30 minutes there was only minimal passage of contrast into the gastrojejunostomy. 2. On the delayed 1 hour film there is apparent contrast noted in the more distal small bowel. Chest X-Ray 06/03/18 06:00 CONCLUSION: No acute cardiopulmonary disease identified. Assessment and Plan - Assessment (1) GI bleed Code(s): K92.2 - Gastrointestinal hemorrhage, unspecified Status: Acute Plan: 82 year old female s/p exploratory laparotomy, gastrojejunostomy, closure, j tube -Continue NGT to LIWS as output still remains high -No meds through NGT at this time -Tolerating TF at goal of 50 cc/hr -PT/OT -Will plan for staple removal last this week - Plan I personally evaluated the patient in room 1309 today. She is awake and alert and interactive. She is remains pleasantly confused. She appears comfortable. The remainder of her mel were removed from her midline incision. There is no drainage or erythema. Half-inch brown Steri-Strips were applied. Feeding tube remains intact without erythema around the entry site. Her tube feeds are now at 60 an hour. The exam, history, and the medical decision-making described in the above note were completed with the assistance of the mid-level provider. I reviewed and agree with the findings presented. I attest that I had a [id number] encounter with the patient on the same day, and personally performed and documented my assessment and findings in the medical record. 06/09/2018 I personally evaluated the patient in room 1309 today. She is postop resection of fourth portion of duodenum with duodenal diverticulum and proximal jejunum due to GI bleed and ischemic necrosis. She had a gastrojejunostomy and closure of abdominal wall and placement of feeding jejunostomy a couple of weeks ago. She is healing well from that. Her major issue from a surgical standpoint is emptying of the stomach through the gastrojejunostomy which is widely patent but not functioning well yet. Plan to add scopolamine patch for nausea. Continue supportive nutrition through the feeding jejunostomy. We will take some time for this 82-year-old woman to recover from the GI bleed and subsequent surgeries. Discussed with bedside RN.
[2018-06-09] MEDS: Scopalamine 1.5 MG Patch T-DERMAL SCH (16:51)
[2018-06-09] MEDS: KCL 20 mEq/Dextrose 5% Inj 1,000 ML IV.CONT SCH (18:06)
[2018-06-10] MEDS: fentaNYL Citrate Inj 100 MCG/2 ML Ampul IV.PUSH PRN ×11 (00:42→23:20)
[2018-06-10 07:15] LABS: Hematocrit 29.2 % (35.0-46.0); Hemoglobin 9.8 gm/dL (11.6-15.3); Mean Corpuscular HGB Conc 33.5 % (32.0-36.0); Mean Corpuscular Hemoglobin 29.7 pg (27.0-34.0); Mean Corpuscular Volume 88.7 fL (80.0-100.0); Mean Platelet Volume 9.2 fL (7.0-11.0); Platelet Count 122 th/mm3 (150-450); Red Blood Count 3.29 mil/mm3 (4.00-5.30); Red Cell Distribution Width 16.5 % (11.6-17.2)
[2018-06-10 07:33] LABS: Albumin 2.5 g/dL (3.4-5.0); Calcium 8.4 mg/dL (8.5-10.1); Carbon Dioxide 18.9 meq/L (21.0-32.0); Potassium 3.9 meq/L (3.5-5.1)
[2018-06-10 07:36] LABS: Total Protein 6.6 g/dL (6.4-8.2); Vancomycin,Random 27.1 Comment
[2018-06-10] MEDS: Metoprolol Tartrate 25 MG Tablet PO SCH ×2 (08:10→20:37)
[2018-06-10] MEDS: MethylPREDNISolone Sod Succinate Inj 40 MG/ML Vial IV.PUSH SCH (08:10)
[2018-06-10] MEDS: Docusate Sodium Liq 100 MG/10 ML UDC PO SCH ×2 (08:11→20:37)
[2018-06-10] MEDS: Potassium Chloride 25 MEQ Effervescent Tablet NG/OG SCH ×2 (08:12→20:38)
[2018-06-10] MEDS: Artificial Tears Opth Oint 3.5 GM Tube EACH EYE SCH ×2 (08:12→20:38)
[2018-06-10] MEDS: Heparin Central Flush 100 UNIT/ML 5 ML Vial IV.FLUSH SCH (08:12)
[2018-06-10] MEDS: Sennosides Liq 8.8 MG/5 ML UDC PO SCH ×2 (08:13→20:38)
[2018-06-10] MEDS: Enoxaparin Inj 40 MG/0.4 ML Syringe SQ SCH (08:13)
[2018-06-10] MEDS: Lidocaine 5% Patch T-DERMAL SCH (08:13)
[2018-06-10] MEDS: amLODIPine 5 MG Tablet J-TUBE SCH (08:14)
[2018-06-10] MEDS: Lisinopril 5 MG Tablet PO SCH (08:15)
--- NOTE | 2018-06-10 09:20 | P.PNIM ---
Subjective Interval history: She reports she is feeling better today. Discussed with RN. Still has copious amount of drainage from NGT. Physical Exam Vital signs: Last Vital Signs Temp 98.3 F 06/10/18 08:00 Pulse 76 06/10/18 09:00 Resp 18 06/10/18 09:00 BP 139/64 06/10/18 09:00 Pulse Ox 98 06/10/18 09:00 Intake & Output 06/08/18 06/09/18 06/10/18 06/11/18 06:59 06:59 06:59 06:59 Intake Total 2977.5 / 2977.5 1657.50 / 1657.50 3278.5 / 3278.5 Output Total 3300 / 3300 3800 / 3800 3800 / 3800 Balance -322.5 / -322.5 -2142.50 / -2142.50 -521.5 / -521.5 Weight 71.5 kg 67.3 kg 67.8 kg Narrative: GENERAL: Elderly female. Pleasantly confused at times. CARDIOVASCULAR: Normal rate and regular rhythm without murmurs, gallops, or rubs. RESPIRATORY: Good respiratory efforts. Breath sounds equal and clear to auscultation bilaterally. GASTROINTESTINAL: Abdomen soft, nondistended. J feeding tube in place. NGT is draining. Midline incision with Steri-Strips looks clean and dry. MUSCULOSKELETAL: Extremities without cyanosis, or edema. PSYCH: Calm Urinary Catheter Management Indwelling Urethral Catheter: Cath placed during this visit: yes Urethral indwelling: No Insertion date: 05/20/18 Insertion time: 19:55 Results Labs CBC & Chem 7: 06/10/18 06:00 06/10/18 06:00 Assessment and Plan (1) GI bleed: Code(s): K92.2 - Gastrointestinal hemorrhage, unspecified Status: Acute Plan 82-year-old female with a history significant for amyloidosis with prolonged hospital course and has been under the care of the critical care service for GI bleeding. The patient underwent emergent IA embolization 05/19. s/p EGD 05/19 and again 05/20 with ischemia present. s/p emergent exploratory laparotomy. She is postop resection of fourth portion of duodenum with duodenal diverticulum and proximal jejunum due to GI bleed and ischemic necrosis. She had a gastrojejunostomy and closure of abdominal wall and placement of feeding jejunostomy a couple of weeks ago. Upper GI bleed Acute hypoxic and hypercarbic respiratory failure-resolved s/p emergent ex lap with duodenal and jejunal resection, initially left in discontinuity with open abdomen 05/20 Now reconstructed with abdominal wall closure. Severe acute anemia secondary to blood loss requiring transfusion- persistent duodenal ulcer Type II NSTEMI secondary to demand ischemia from severe anemia s/p EGD 05/19, 05/20. s/p emergent IR embolization 05/19 severe acute thrombocytopenia - ITP improving acute protein calorie malnutrition- moderate to severe Fluid overload sepsis Pneumonia Staph aureus bacteremia Right hilar mass H/o Right lower lobectomy, and adenoca lung Plan: - Extubated 05/31/2018 tolerating well. - Abx with azactam, zyvox, flagyl via G tube. ID following. micafungin added by ID on 05/28. - Blood cultures from 05/28 growing MSSA. Sputum culture Citrobacter and staph aureus - Pulmonary consult requested for right hilar mass on CT chest done on 05/29. Per Dr. Pack's note, daughter Nohemy Davis wants to hold off bronchoscopy. Once better patient can make the decision herself - Serial hemoglobin, transfuse to keep hgb > 7 - serially check platelets, transfuse to keep plt > 50k. Tapering solumedrol, platelets remain acceptable. - tube feeds per general surgery, through jejunostomy. NGT to suction. Gastrografin study completed; very slow gastric emptying. - Strict intake output, monitor and replete elect lytes, follow BUN and creatinine. - ICU electrolyte replacement protocol - SCDs. Restart subcu heparin per Heme-onc. - D5 and water with 20 mEq KCl per liter -Continue Protonix. Still negative in fluid balance today. May need to add free water to tube feeding. Continue to monitor. Overall impression: Slowly improving, now extubated and breathing comfortably, remains weak. Source of bacteremia remains unclear but she appears well covered and is getting stronger. Monitor fluid status closely. She is losing a lot from NGT. Continue to monitor closely. Continue supportive nutrition through the feeding jejunostomy. Progress Note: Quality VTE Deep Vein Thrombosis/Pulmonary Embolism Present on Admission: No _ (1) GI bleed Qualifiers: GI bleed type/associated pathology: Gastritis type:
--- NOTE | 2018-06-10 09:20 | P.PNONC ---
Subjective Interval history: More alert. She is aware she is in the hospital. She recognizes me. Objective Vital Signs/Intake & Output: Vital Signs 06/09/18 10:00 06/09/18 11:00 06/09/18 12:00 Temperature Pulse Rate 89 89 92 H Respiratory Rate Blood Pressure 137/64 127/57 L 107/53 L Pulse Oximetry 95 93 L 96 06/09/18 13:00 06/09/18 13:09 06/09/18 14:00 Temperature Pulse Rate 94 H 92 H 90 Respiratory Rate Blood Pressure 122/59 L 123/57 L 112/51 L Pulse Oximetry 96 97 98 06/09/18 15:00 06/09/18 16:00 06/09/18 17:00 Temperature 98.1 F Pulse Rate 93 H 96 H 97 H Respiratory Rate Blood Pressure 105/56 L 133/59 L 131/63 Pulse Oximetry 97 96 95 06/09/18 18:00 06/09/18 19:00 06/09/18 20:00 Temperature 98.4 F Pulse Rate 103 H 96 H 105 H Respiratory Rate Blood Pressure 150/68 H 133/61 137/65 Pulse Oximetry 97 100 100 06/09/18 21:00 06/09/18 21:25 06/09/18 22:00 Temperature Pulse Rate 101 H 102 H Respiratory Rate 20 Blood Pressure 142/65 H 149/66 H Pulse Oximetry 100 100 06/09/18 23:00 06/10/18 00:00 06/10/18 01:00 Temperature Pulse Rate 86 87 81 Respiratory Rate Blood Pressure 153/72 H 141/65 H 142/64 H Pulse Oximetry 100 98 98 06/10/18 01:12 06/10/18 02:00 06/10/18 02:13 Temperature Pulse Rate 91 H 89 Respiratory Rate 18 Blood Pressure 146/67 H Pulse Oximetry 98 100 06/10/18 03:00 06/10/18 04:00 06/10/18 05:00 Temperature 98.7 F Pulse Rate 95 H 91 H 94 H Respiratory Rate Blood Pressure 131/60 151/65 H Pulse Oximetry 95 06/10/18 05:14 06/10/18 05:21 06/10/18 06:00 Temperature Pulse Rate 95 H 95 H Respiratory Rate 20 Blood Pressure 140/64 134/58 L Pulse Oximetry 93 L 98 06/10/18 07:00 06/10/18 07:06 06/10/18 08:00 Temperature 98.3 F Pulse Rate 97 H 100 H Respiratory Rate 20 22 Blood Pressure 132/60 119/56 L Pulse Oximetry 99 88 L 06/10/18 08:03 06/10/18 09:00 Temperature Pulse Rate 76 Respiratory Rate 18 Blood Pressure 139/64 Pulse Oximetry 96 98 Intake & Output 06/09/18 06/10/18 06/10/18 18:59 06:59 18:59 Intake Total 2601.5 / 2601.5 677 / 677 Output Total 1900 / 1900 1900 / 1900 Balance 701.5 / 701.5 -1223 / -1223 Weight 67.8 kg Intake: IV 1517.5 / 1517.5 D5W + KCL 20 mEq Inj 1,000 ML @ 1000 / 1000 50 mls/hr IV.CONT .Q20H [facility] Rx #:[id number] Vancomycin Inj 1,750 MG In NS 517.5 / 517.5 Inj 500 ML @ 250 mls/hr IV.SIG Q24H [facility] Rx#:[id number] Oral 240 / 240 Tube Feeding 544 / 544 677 / 677 Tube Irrigant 300 / 300 Output: Urine Amount (Catheter) 850 / 850 950 / 950 Indwelling Urethral Catheter 850 / 850 950 / 950 Gastric Drainage 1050 / 1050 950 / 950 Right Nare Nasogastric Tube 1050 / 1050 950 / 950 Other: Date of Last Bowel Movement 06/09/18 06/09/18 06/09/18 # Bowel Movements 2 1 Result Diagrams: 06/10/18 06:00 06/10/18 06:00 Laboratory Results: Laboratory Results - last 24 hr 06/10/18 06/10/18 06:00 06:00 WBC 7.0 RBC 3.29 L Hgb 9.8 L Hct 29.2 L MCV 88.7 MCH 29.7 MCHC 33.5 RDW 16.5 Plt Count 122 L MPV 9.2 Sodium 139 Potassium 3.9 Chloride 108 H Carbon Dioxide 18.9 L Anion Gap 12 BUN 37 H Creatinine 0.82 Estimated GFR 67 L Random Glucose 91 Calcium 8.4 L Total Bilirubin 0.4 Direct Bilirubin 0.1 Indirect Bilirubin 0.3 AST 36 ALT 117 H Alkaline Phosphatase 138 H Total Protein 6.6 Albumin 2.5 L Random Vancomycin 27.1 Medications: Active Medications Generic Name Dose Route Start Last Admin Trade Name Freq PRN Reason Stop Dose Admin Acetaminophen 650 mg 05/17/18 06:10 05/28/18 16:28 Tylenol PO 650 mg Q4H PRN Administration Temp > 100.4 Albuterol 2.5 mg 05/21/18 23:28 05/28/18 08:20 Albuterol Neb (Prn) NEB 2.5 mg Q2HR NEB PRN Administration WHEEZING Amlodipine Besylate 5 mg 05/26/18 10:00 06/10/18 08:14 Norvasc J-TUBE Not Given DAILY [facility] Artificial Tears 1 applicatio 05/22/18 21:00 06/10/18 08:12 Lacrilube Opth Oint EACH EYE 1 applicatio BID [facility] Administration Clonidine HCl 0.1 mg 05/26/18 11:24 05/26/18 23:31 Catapres PO 0.1 mg Q6H PRN Administration SBP>160, DBP>90 Docusate Sodium 50 mg 06/06/18 09:00 06/10/18 08:11 Colace Liq PO 50 mg BID [facility]ERY Administration Enoxaparin Sodium 40 mg 06/05/18 10:00 06/10/18 08:13 Lovenox Inj SQ 40 mg DAILY [facility] Administration Fentanyl Citrate 25 mcg 06/01/18 08:40 06/10/18 06:36 Fentanyl Inj IV.PUSH 25 mcg Q1H PRN Administration Any pain Heparin Sodium (Porcine) 0 unit 05/21/18 09:00 06/10/18 08:12 Heparin Central Flush IV.FLUSH Not Given DAILY [facility] Heparin Sodium (Porcine) 0 unit 05/20/18 16:43 06/09/18 09:07 Heparin Central Flush IV.FLUSH 400 unit PRN PRN Administration Flush PICC Line Hydralazine HCl 10 mg 05/23/18 00:24 05/28/18 16:12 Apresoline Inj IV.PUSH 10 mg Q1H PRN Administration Sbp>165, Dbp>90 Sodium Chloride 500 mls @ 30 mls/hr 05/18/18 07:00 05/18/18 07:00 Ns Inj IV.SIG Not Given .Q10H [facility] Magnesium Sulfate 2 gm/ Sodium 100 mls @ 50 mls/hr 05/22/18 22:43 05/30/18 08 :00 Chloride IV.SIG Infused UNSCH PRN Infusion For Magnesium 1.2 - 1.6 mg/dL Potassium Chloride 40 meq in 100 mls @ 25 mls/hr 05/22/18 22:43 05/30/18 08: 00 Kcl 40 Meq Premix Inj IV.SIG Infused Q2H PRN Infusion For Potassium 2.8 - 3.2 mEq/L Potassium Chloride 20 meq in 100 mls @ 50 mls/hr 05/22/18 22:43 06/04/18 17: 12 Kcl 20 Meq Premix Inj IV.SIG Infused Q2H PRN Infusion For Potassium 3.3 - 3.5 mEq/L Potassium Chloride 40 meq in 100 mls @ 25 mls/hr 05/22/18 22:43 05/30/18 08: 00 Kcl 40 Meq Premix Inj IV.SIG Infused UNSCH PRN Infusion For Potassium 3.3 - 3.5 mEq/L Potassium Chloride 20 meq in 100 mls @ 50 mls/hr 05/22/18 22:43 06/02/18 17: 30 Kcl 20 Meq Premix Inj IV.SIG Infused Q2H PRN Infusion For Potassium 2.8 - 3.2 mEq/L Potassium Phosphate 30 mmol/ 260 mls @ 42 mls/hr 05/22/18 22:43 05/23/18 12: 57 Sodium Chloride IV.SIG Infused UNSCH PRN Infusion SEE LABEL COMMENTS Vancomycin HCl 1,750 mg/ 517.5 mls @ 250 mls/hr 06/06/18 06:00 06/09/18 08:40 Sodium Chloride IV.SIG Infused Q24H [facility] Infusion Potassium Chloride/Dextrose 1,000 mls @ 50 mls/hr 06/06/18 08:45 06/09/18 18: 35 D5w + Kcl 20 Meq Inj IV.CONT Infused .Q20H [facility] Infusion Labetalol HCl 20 mg 05/26/18 07:44 05/27/18 03:30 Trandate Inj IV.PUSH 20 mg Q2H PRN Administration KEEP SBP<160 Lidocaine HCl 1 patch 06/08/18 14:00 06/10/18 08:13 Lidoderm 5% Patch.12 Hr T-DERMAL 1 patch DAILY [facility] Administration Lisinopril 5 mg 06/06/18 09:00 06/10/18 08:15 Prinivil PO Not Given DAILY [facility] Lorazepam 1 mg 06/09/18 10:00 06/09/18 13:04 Ativan Inj IV.PUSH 1 mg Q6H PRN Administration ANXIETY Metoprolol Tartrate 25 mg 06/06/18 09:00 06/10/18 08:10 Lopressor PO 25 mg BID [facility] Administration Ondansetron HCl 4 mg 05/17/18 06:10 06/09/18 08:11 Zofran Inj IV.PUSH 4 mg Q6H PRN Administration NAUSEA OR VOMITING Pantoprazole Sodium 40 mg 06/09/18 10:00 06/09/18 22:11 Protonix Inj IV.PUSH 40 mg Q12H [facility] Administration Patch Removal 1 each 06/08/18 21:00 06/09/18 23:03 Remove Old Patch T-DERMAL 1 each HS [facility] Administration Potassium Bicarb/Potassium Chloride 50 meq 05/22/18 22:43 06/03/18 05:53 K-Lyte Cl Eff PO 50 meq UNSCH PRN Administration For Potassium 3.3 - 3.5 mEq/L Potassium Bicarb/Potassium Chloride 25 meq 05/26/18 21:00 06/10/18 08:12 K-Lyte Cl Eff NG/OG 25 meq BID [facility] Administration Prochlorperazine Edisylate 10 mg 05/17/18 09:06 06/09/18 11:22 Compazine Inj IV.PUSH 10 mg Q6H PRN Administration NAUSEA Scopolamine 1 patch 06/09/18 15:00 06/09/18 16:51 Transderm-Scop 1.5 Mg Patch.72hr T-DERMAL 1 patch Q3D [facility] Administration Sennosides 8.8 mg 06/06/18 09:00 06/10/18 08:13 Senna Liq PO 8.8 mg BID [facility] Administration Sodium Chloride 0 ml 05/21/18 09:00 06/10/18 08:15 Ns Flush IV.FLUSH 10 ml DAILY [facility] Administration Sodium Chloride 0 ml 05/20/18 16:43 05/26/18 01:39 Ns Flush IV.FLUSH 2 ml PRN PRN Administration FLUSH AFTER USING IV ACCESS Objective Remarks: GENERAL: stronger but still very frail SKIN: Warm and dry. HEAD: Normocephalic. EYES: No scleral icterus. No injection or drainage. NECK: Supple, trachea midline. No JVD or lymphadenopathy. LYMPHATIC: No adenopathy. CARDIOVASCULAR: Regular rate and rhythm without murmurs. RESPIRATORY: Breath sounds equal bilaterally. No accessory muscle use. GASTROINTESTINAL: Abdomen soft, non-tender, nondistended. EXTREMITIES: No cyanosis, or edema. MUSCULOSKELETAL: poor muscle tone NEUROLOGICAL: generalized weakness PSYCHIATRIC: able to converse with slight confusion. Assessment/Plan - Plan Ms. 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 Patient responded to steroids. Plan: 1. Thrombocytopenia: solu-medrol currently 15mg IV daily. Thrombocytopenia continues to improve. She is receiving Lovenox without problems. Will DC IV Solu-Medrol and convert to prednisone 10 mg daily through the NG tube. We will continue to taper the steroids. 2: Findings on CT of the thorax noted. This was unexpected. She had a small lung cancer in the past but this was microscopic and the likelihood of developing hilar metastases therefore small. At some point in the future, if she recovers, it would be reasonable to do bronchoscopy and I suspect that the diagnosis can be made with bronchoscopy. It is certainly suspicious for lung cancer but this has been a woman with many surprises and strange illnesses.
[2018-06-10] MEDS: predniSONE Liq 5 MG/5 ML UDC PO SCH (09:53)
[2018-06-10] MEDS: Pantoprazole Inj 40 MG Vial IV.PUSH SCH ×2 (09:54→21:01)
--- NOTE | 2018-06-10 10:22 | P.PNGS ---
Subjective Interval history: Pleasantly confusing Asked me to call her a ride so she can get home Physical Exam Vital signs: Vital Signs 06/09/18 11:00 06/09/18 12:00 06/09/18 13:00 Temperature Pulse Rate 89 92 H 94 H Respiratory Rate Blood Pressure 127/57 L 107/53 L 122/59 L Pulse Oximetry 93 L 96 96 06/09/18 13:09 06/09/18 14:00 06/09/18 15:00 Temperature Pulse Rate 92 H 90 93 H Respiratory Rate Blood Pressure 123/57 L 112/51 L 105/56 L Pulse Oximetry 97 98 97 06/09/18 16:00 06/09/18 17:00 06/09/18 18:00 Temperature 98.1 F Pulse Rate 96 H 97 H 103 H Respiratory Rate Blood Pressure 133/59 L 131/63 150/68 H Pulse Oximetry 96 95 97 06/09/18 19:00 06/09/18 20:00 06/09/18 21:00 Temperature 98.4 F Pulse Rate 96 H 105 H 101 H Respiratory Rate Blood Pressure 133/61 137/65 142/65 H Pulse Oximetry 100 100 100 06/09/18 21:25 06/09/18 22:00 06/09/18 23:00 Temperature Pulse Rate 102 H 86 Respiratory Rate 20 Blood Pressure 149/66 H 153/72 H Pulse Oximetry 100 100 06/10/18 00:00 06/10/18 01:00 06/10/18 01:12 Temperature Pulse Rate 87 81 Respiratory Rate 18 Blood Pressure 141/65 H 142/64 H Pulse Oximetry 98 98 06/10/18 02:00 06/10/18 02:13 06/10/18 03:00 Temperature Pulse Rate 91 H 89 95 H Respiratory Rate Blood Pressure 146/67 H 131/60 Pulse Oximetry 98 100 06/10/18 04:00 06/10/18 05:00 06/10/18 05:14 Temperature 98.7 F Pulse Rate 91 H 94 H Respiratory Rate 20 Blood Pressure 151/65 H Pulse Oximetry 95 06/10/18 05:21 06/10/18 06:00 06/10/18 07:00 Temperature Pulse Rate 95 H 95 H 97 H Respiratory Rate Blood Pressure 140/64 134/58 L 132/60 Pulse Oximetry 93 L 98 99 06/10/18 07:06 06/10/18 08:00 06/10/18 08:03 Temperature 98.3 F Pulse Rate 100 H Respiratory Rate 20 22 Blood Pressure 119/56 L Pulse Oximetry 88 L 96 06/10/18 09:00 Temperature Pulse Rate 76 Respiratory Rate 18 Blood Pressure 139/64 Pulse Oximetry 98 Intake & Output 06/09/18 06/10/18 06/10/18 18:59 06:59 18:59 Intake Total 2601.5 / 2601.5 677 / 677 Output Total 1900 / 1900 1900 / 1900 Balance 701.5 / 701.5 -1223 / -1223 Weight 67.8 kg Intake: IV 1517.5 / 1517.5 D5W + KCL 20 mEq Inj 1,000 ML @ 1000 / 1000 50 mls/hr IV.CONT .Q20H [facility] Rx #:[id number] Vancomycin Inj 1,750 MG In NS 517.5 / 517.5 Inj 500 ML @ 250 mls/hr IV.SIG Q24H [facility] Rx#:[id number] Oral 240 / 240 Tube Feeding 544 / 544 677 / 677 Tube Irrigant 300 / 300 Output: Urine Amount (Catheter) 850 / 850 950 / 950 Indwelling Urethral Catheter 850 / 850 950 / 950 Gastric Drainage 1050 / 1050 950 / 950 Right Nare Nasogastric Tube 1050 / 1050 950 / 950 Other: Date of Last Bowel Movement 06/09/18 06/09/18 06/09/18 # Bowel Movements 2 1 Narrative: Alert and awake; pleasantly confused Resp: CTAB Abd: soft; midline incision with mel removed; J tube with TF NGT to LIWS - Urinary Catheter Management Indwelling Urethral Catheter Cath placed during this visit: yes Urethral indwelling: No Reason for continuing: Hourly intake/output Insertion date: 05/20/18 Insertion time: 19:55 Results - Labs 06/12/18 05:10 06/12/18 05:10 Laboratory Results - last 24 hr 06/10/18 06/10/18 06:00 06:00 WBC 7.0 RBC 3.29 L Hgb 9.8 L Hct 29.2 L MCV 88.7 MCH 29.7 MCHC 33.5 RDW 16.5 Plt Count 122 L MPV 9.2 Sodium 139 Potassium 3.9 Chloride 108 H Carbon Dioxide 18.9 L Anion Gap 12 BUN 37 H Creatinine 0.82 Estimated GFR 67 L Random Glucose 91 Calcium 8.4 L Total Bilirubin 0.4 Direct Bilirubin 0.1 Indirect Bilirubin 0.3 AST 36 ALT 117 H Alkaline Phosphatase 138 H Total Protein 6.6 Albumin 2.5 L Random Vancomycin 27.1 - Imaging Imaging: ITS Impressions GI Bleed Scan Nuclear Medicine 05/19/18 00:00 CONCLUSION: 1. 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 Patient was emergently brought to the interventional radiology department from the nuclear medicine department for angiography and intervention. Mesenteric Arteriogram 05/19/18 14:37 CONCLUSION: 1. 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 2. 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 PICC Line Insertion 05/20/18 00:00 CONCLUSION: 1. Uncomplicated central venous Power PICC line placement. 2. The PICC line can be used immediately. Abdomen X-Ray 05/28/18 05:23 CONCLUSION: No dilated bowel loops. Abdomen/Pelvis CT 05/29/18 00:00 CONCLUSION: 1. Since the prior CT, midline laparotomy with gastrojejunostomy has been performed. Anastomosis appears patent. There is a nasogastric tube which extends beyond the site of surgery and is in the first portion of the duodenum. Unchanged metallic structure near the ligament of Treitz, etiology uncertain. 2. A jejunostomy tube has also been placed without evidence of an acute complication. 3. Small, nonspecific free fluid in the pelvic cavity. No evidence of abscess. 4. No acute solid organ abnormality. Cysts of both kidneys and nonobstructing stones of the left kidney are again noted. 5. Sigmoid colon diverticulosis without diverticulitis. Chest CT 05/29/18 11:52 CONCLUSION: 1. 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 2. Pneumonia with volume loss in the right lower lobe. 3. Coronary artery calcification. 4. Emphysema. Gastrografin Study 06/02/18 00:00 CONCLUSION: 1. During the first 30 minutes there was only minimal passage of contrast into the gastrojejunostomy. 2. On the delayed 1 hour film there is apparent contrast noted in the more distal small bowel. Chest X-Ray 06/03/18 06:00 CONCLUSION: No acute cardiopulmonary disease identified. Assessment and Plan - Assessment (1) GI bleed Code(s): K92.2 - Gastrointestinal hemorrhage, unspecified Status: Acute Plan: 82 year old female s/p exploratory laparotomy, gastrojejunostomy, closure, j tube -Continue NGT to LIWS as output still remains high -No meds through NGT at this time -Tolerating TF at goal -PT/OT - Plan The exam, history, and the medical decision-making described in the above note were completed with the assistance of the mid-level provider. I reviewed and agree with the findings presented. I attest that I had a [id number] encounter with the patient on the same day, and personally performed and documented my assessment and findings in the medical record.
[2018-06-10] MEDS: KCL 20 mEq/Dextrose 5% Inj 1,000 ML IV.CONT SCH (17:09)
[2018-06-11] MEDS: fentaNYL Citrate Inj 100 MCG/2 ML Ampul IV.PUSH PRN ×13 (00:47→23:31)
[2018-06-11 06:56] LABS: Hematocrit 26.9 % (35.0-46.0); Hemoglobin 8.9 gm/dL (11.6-15.3); Mean Corpuscular Hemoglobin 29.4 pg (27.0-34.0); Mean Corpuscular Volume 89.1 fL (80.0-100.0); Mean Platelet Volume 8.6 fL (7.0-11.0); Platelet Count 129 th/mm3 (150-450); Red Blood Count 3.02 mil/mm3 (4.00-5.30); Red Cell Distribution Width 16.5 % (11.6-17.2); White Blood Count 7.1 th/mm3 (4.0-11.0)
[2018-06-11 07:16] LABS: Calcium 8.6 mg/dL (8.5-10.1); Carbon Dioxide 20.3 meq/L (21.0-32.0); Potassium 4.1 meq/L (3.5-5.1)
[2018-06-11] MEDS: Lidocaine 5% Patch T-DERMAL SCH (09:21)
[2018-06-11] MEDS: Artificial Tears Opth Oint 3.5 GM Tube EACH EYE SCH ×2 (09:25→20:31)
[2018-06-11] MEDS: Sennosides Liq 8.8 MG/5 ML UDC PO SCH ×2 (09:25→20:30)
[2018-06-11] MEDS: Lisinopril 5 MG Tablet PO SCH (09:26)
[2018-06-11] MEDS: Metoprolol Tartrate 25 MG Tablet PO SCH ×2 (09:26→20:30)
[2018-06-11] MEDS: Docusate Sodium Liq 100 MG/10 ML UDC PO SCH ×2 (09:26→20:51)
[2018-06-11] MEDS: Pantoprazole Inj 40 MG Vial IV.PUSH SCH ×2 (09:27→21:04)
[2018-06-11] MEDS: Potassium Chloride 25 MEQ Effervescent Tablet NG/OG SCH ×2 (09:27→20:30)
[2018-06-11] MEDS: predniSONE Liq 5 MG/5 ML UDC PO SCH (09:27)
[2018-06-11] MEDS: amLODIPine 5 MG Tablet J-TUBE SCH (09:28)
[2018-06-11] MEDS: Heparin Central Flush 100 UNIT/ML 5 ML Vial IV.FLUSH SCH (09:28)
[2018-06-11] MEDS: Enoxaparin Inj 40 MG/0.4 ML Syringe SQ SCH (09:28)
--- NOTE | 2018-06-11 10:55 | P.PNIM ---
Subjective Interval history: Patient reports she is feeling okay today. Still having significant output from NGT. Pain is controlled. Physical Exam Vital signs: Last Vital Signs Temp 97.8 F 06/11/18 08:00 Pulse 94 H 06/11/18 08:00 Resp 21 06/11/18 08:00 BP 129/60 06/11/18 08:00 Pulse Ox 96 06/11/18 08:00 Intake & Output 06/09/18 06/10/18 06/11/18 06/12/18 06:59 06:59 06:59 06:59 Intake Total 1657.50 / 1657.50 3278.5 / 3278.5 1736 / 1736 Output Total 3800 / 3800 3800 / 3800 2100 / 2100 Balance -2142.50 / -2142.50 -521.5 / -521.5 -364 / -364 Weight 67.3 kg 67.8 kg Narrative: GENERAL: Elderly female. Pleasantly confused at times. CARDIOVASCULAR: Normal rate and regular rhythm without murmurs, gallops, or rubs. RESPIRATORY: Good respiratory efforts. Breath sounds equal and clear to auscultation bilaterally. GASTROINTESTINAL: Abdomen soft, nondistended. J feeding tube in place. NGT is draining. Midline incision with Steri-Strips looks clean and dry. MUSCULOSKELETAL: Extremities without cyanosis, or edema. PSYCH: Calm Urinary Catheter Management Indwelling Urethral Catheter: Cath placed during this visit: yes, but has since been removed by the nurse Urethral indwelling: No Insertion date: 05/20/18 Insertion time: 19:55 Removal date: 06/10/18 Removal time: 12:10 Results Labs CBC & Chem 7: 06/11/18 05:36 06/11/18 05:36 Assessment and Plan (1) GI bleed: Code(s): K92.2 - Gastrointestinal hemorrhage, unspecified Status: Acute Plan 82-year-old female with a history significant for amyloidosis with prolonged hospital course and has been under the care of the critical care service for GI bleeding. The patient underwent emergent IA embolization 05/19. s/p EGD 05/19 and again 05/20 with ischemia present. s/p emergent exploratory laparotomy. She is postop resection of fourth portion of duodenum with duodenal diverticulum and proximal jejunum due to GI bleed and ischemic necrosis. She had a gastrojejunostomy and closure of abdominal wall and placement of feeding jejunostomy a couple of weeks ago. Upper GI bleed Acute hypoxic and hypercarbic respiratory failure-resolved s/p emergent ex lap with duodenal and jejunal resection, initially left in discontinuity with open abdomen 05/20 Now reconstructed with abdominal wall closure. Severe acute anemia secondary to blood loss requiring transfusion- persistent duodenal ulcer Type II NSTEMI secondary to demand ischemia from severe anemia s/p EGD 05/19, 05/20. s/p emergent IR embolization 05/19 severe acute thrombocytopenia - ITP improving acute protein calorie malnutrition- moderate to severe Fluid overload sepsis Pneumonia Staph aureus bacteremia Right hilar mass H/o Right lower lobectomy, and adenoca lung Plan: - Extubated 05/31/2018 tolerating well. - Abx with azactam, zyvox, flagyl via G tube. ID following. micafungin added by ID on 05/28. - Blood cultures from 05/28 growing MSSA. Sputum culture Citrobacter and staph aureus - Pulmonary consult requested for right hilar mass on CT chest done on 05/29. Per Dr. Pack's note, daughter Nohemy Davis wants to hold off bronchoscopy. Once better patient can make the decision herself - Serial hemoglobin, transfuse to keep hgb > 7 - serially check platelets, transfuse to keep plt > 50k. Tapering solumedrol, platelets remain acceptable. - tube feeds per general surgery, through jejunostomy. NGT to suction. Gastrografin study completed; very slow gastric emptying. - Strict intake output, monitor and replete electrolytes, follow BUN and creatinine. - ICU electrolyte replacement protocol - Subcu heparin per Heme-onc. - D5 and water with 20 mEq KCl per liter -Continue Protonix. Negative in fluid balance today. Continue to monitor. - Keller Dced. Overall impression: Slowly improving, extubated and breathing comfortably, remains weak. Source of bacteremia remains unclear but she appears well covered and is getting stronger. Monitor fluid status closely. She is losing a lot from NGT. Continue supportive nutrition through the feeding jejunostomy. Progress Note: Quality VTE Deep Vein Thrombosis/Pulmonary Embolism Present on Admission: No _ (1) GI bleed Qualifiers: GI bleed type/associated pathology: Gastritis type:
--- NOTE | 2018-06-11 10:56 | P.PNGS ---
Subjective Interval history: Asked who I was---when I answered her she said "Of course I know who you are!" She is asking about when she can go to rehab Physical Exam Vital signs: Vital Signs 06/10/18 11:00 06/10/18 11:57 06/10/18 12:00 Temperature 98.6 F Pulse Rate 75 74 Respiratory Rate 22 22 23 Blood Pressure 115/57 L 115/61 Pulse Oximetry 96 97 06/10/18 13:00 06/10/18 14:00 06/10/18 15:00 Temperature Pulse Rate 89 85 93 H Respiratory Rate 19 Blood Pressure 154/65 H 140/65 145/65 H Pulse Oximetry 98 100 06/10/18 16:00 06/10/18 16:49 06/10/18 17:00 Temperature Pulse Rate 100 H 96 H 95 H Respiratory Rate Blood Pressure 155/68 H 138/64 129/59 L Pulse Oximetry 100 06/10/18 18:00 06/10/18 19:00 06/10/18 19:15 Temperature 98.7 F Pulse Rate 95 H 95 H Respiratory Rate Blood Pressure 152/67 H 137/61 Pulse Oximetry 98 97 98 06/10/18 20:00 06/10/18 21:00 06/10/18 21:07 Temperature 98.7 F Pulse Rate 95 H 85 Respiratory Rate 16 Blood Pressure 147/68 H 140/64 Pulse Oximetry 96 100 06/10/18 22:00 06/10/18 22:37 06/10/18 23:00 Temperature Pulse Rate 73 79 Respiratory Rate 18 Blood Pressure 156/64 H 140/64 Pulse Oximetry 96 99 06/10/18 23:50 06/11/18 00:00 06/11/18 01:00 Temperature 98.9 F Pulse Rate 83 84 Respiratory Rate 20 Blood Pressure 138/65 136/62 Pulse Oximetry 99 98 06/11/18 01:17 06/11/18 02:00 06/11/18 02:38 Temperature Pulse Rate 84 Respiratory Rate 18 14 Blood Pressure 165/69 H Pulse Oximetry 96 06/11/18 03:00 06/11/18 04:00 06/11/18 04:15 Temperature 97.9 F Pulse Rate 84 88 Respiratory Rate 22 Blood Pressure 144/65 H Pulse Oximetry 96 98 06/11/18 05:00 06/11/18 05:44 06/11/18 06:00 Temperature Pulse Rate 94 H 93 H Respiratory Rate 20 Blood Pressure Pulse Oximetry 97 97 06/11/18 06:46 06/11/18 07:00 06/11/18 08:00 Temperature 97.8 F Pulse Rate 94 H 94 H Respiratory Rate 16 20 21 Blood Pressure 126/60 129/60 Pulse Oximetry 98 96 Intake & Output 06/10/18 06/11/18 06/11/18 18:59 06:59 18:59 Intake Total 1082 / 1082 654 / 654 Output Total 1250 / 1250 850 / 850 Balance -168 / -168 -196 / -196 Intake: IV 0 / 0 D5W + KCL 20 mEq Inj 1,000 ML @ 0 / 0 50 mls/hr IV.CONT .Q20H [facility] Rx #:[id number] Oral 240 / 240 Tube Feeding 542 / 542 654 / 654 Tube Irrigant 300 / 300 Output: Urine 400 / 400 Gastric Drainage 850 / 850 850 / 850 Right Nare Nasogastric Tube 850 / 850 850 / 850 Other: # Voids 3 2 # Urine Diapers 2 Date of Last Bowel Movement 06/10/18 06/10/18 # Bowel Movements 2 Narrative: Alert and awake; although continues to be pleasantly confused Abd: Soft; minimally tender; incision ---mel removed. J tube with TF - Urinary Catheter Management Indwelling Urethral Catheter Cath placed during this visit: yes, but has since been removed by the nurse Urethral indwelling: No Reason for continuing: Hourly intake/output Insertion date: 05/20/18 Insertion time: 19:55 Removal date: 06/10/18 Removal time: 12:10 Results - Labs 06/12/18 05:10 06/12/18 05:10 Laboratory Results - last 24 hr 06/11/18 06/11/18 05:36 05:36 WBC 7.1 RBC 3.02 L Hgb 8.9 L Hct 26.9 L MCV 89.1 MCH 29.4 MCHC 33.0 RDW 16.5 Plt Count 129 L MPV 8.6 Sodium 139 Potassium 4.1 Chloride 108 H Carbon Dioxide 20.3 L Anion Gap 11 BUN 36 H Creatinine 0.74 Estimated GFR 75 L Random Glucose 101 Calcium 8.6 - Imaging Imaging: ITS Impressions GI Bleed Scan Nuclear Medicine 05/19/18 00:00 CONCLUSION: 1. 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 Patient was emergently brought to the interventional radiology department from the nuclear medicine department for angiography and intervention. Mesenteric Arteriogram 05/19/18 14:37 CONCLUSION: 1. 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 2. 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 PICC Line Insertion 05/20/18 00:00 CONCLUSION: 1. Uncomplicated central venous Power PICC line placement. 2. The PICC line can be used immediately. Abdomen X-Ray 05/28/18 05:23 CONCLUSION: No dilated bowel loops. Abdomen/Pelvis CT 05/29/18 00:00 CONCLUSION: 1. Since the prior CT, midline laparotomy with gastrojejunostomy has been performed. Anastomosis appears patent. There is a nasogastric tube which extends beyond the site of surgery and is in the first portion of the duodenum. Unchanged metallic structure near the ligament of Treitz, etiology uncertain. 2. A jejunostomy tube has also been placed without evidence of an acute complication. 3. Small, nonspecific free fluid in the pelvic cavity. No evidence of abscess. 4. No acute solid organ abnormality. Cysts of both kidneys and nonobstructing stones of the left kidney are again noted. 5. Sigmoid colon diverticulosis without diverticulitis. Chest CT 05/29/18 11:52 CONCLUSION: 1. 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 2. Pneumonia with volume loss in the right lower lobe. 3. Coronary artery calcification. 4. Emphysema. Gastrografin Study 06/02/18 00:00 CONCLUSION: 1. During the first 30 minutes there was only minimal passage of contrast into the gastrojejunostomy. 2. On the delayed 1 hour film there is apparent contrast noted in the more distal small bowel. Chest X-Ray 06/03/18 06:00 CONCLUSION: No acute cardiopulmonary disease identified. Assessment and Plan - Assessment (1) GI bleed Code(s): K92.2 - Gastrointestinal hemorrhage, unspecified Status: Acute Plan: 82 year old female s/p exploratory laparotomy, gastrojejunostomy, closure, j tube -Continue NGT to LIWS as output still remains high -No meds through NGT at this time -Tolerating TF at goal -Continue aggressive PT/OT - Plan The exam, history, and the medical decision-making described in the above note were completed with the assistance of the mid-level provider. I reviewed and agree with the findings presented. I attest that I had a [id number] encounter with the patient on the same day, and personally performed and documented my assessment and findings in the medical record.
[2018-06-11] MEDS: KCL 20 mEq/Dextrose 5% Inj 1,000 ML IV.CONT SCH (11:44)
[2018-06-12] MEDS: fentaNYL Citrate Inj 100 MCG/2 ML Ampul IV.PUSH PRN ×6 (00:57→18:16)
[2018-06-12 06:02] LABS: Hematocrit 27.5 % (35.0-46.0); Hemoglobin 9.3 gm/dL (11.6-15.3); Mean Corpuscular HGB Conc 33.7 % (32.0-36.0); Mean Corpuscular Hemoglobin 29.9 pg (27.0-34.0); Mean Corpuscular Volume 88.7 fL (80.0-100.0); Mean Platelet Volume 8.7 fL (7.0-11.0); Platelet Count 137 th/mm3 (150-450); White Blood Count 8.4 th/mm3 (4.0-11.0)
[2018-06-12 06:10] LABS: Calcium 9.2 mg/dL (8.5-10.1); Carbon Dioxide 21.1 meq/L (21.0-32.0); Potassium 4.4 meq/L (3.5-5.1)
[2018-06-12 06:12] LABS: Vancomycin,Random 12.8 Comment
[2018-06-12] MEDS: KCL 20 mEq/Dextrose 5% Inj 1,000 ML IV.CONT SCH ×2 (09:23→23:46)
--- NOTE | 2018-06-12 09:25 | P.PNONC ---
Subjective Interval history: Pleasantly confused. Appears comfortable. NG tube still draining. Objective Vital Signs/Intake & Output: Vital Signs 06/11/18 10:00 06/11/18 11:00 06/11/18 12:00 Temperature 97.5 F L Pulse Rate 98 H 70 78 Respiratory Rate 21 20 16 Blood Pressure 117/58 L 120/60 106/55 L Pulse Oximetry 96 100 100 06/11/18 13:00 06/11/18 14:00 06/11/18 15:00 Temperature Pulse Rate 78 82 78 Respiratory Rate 18 17 18 Blood Pressure 116/57 L 116/58 L 116/53 L Pulse Oximetry 100 100 100 06/11/18 16:00 06/11/18 17:00 06/11/18 18:00 Temperature 97.6 F Pulse Rate 88 92 H 90 Respiratory Rate 20 20 18 Blood Pressure 109/75 116/58 L 110/81 Pulse Oximetry 100 100 100 06/11/18 18:50 06/11/18 19:00 06/11/18 19:50 Temperature Pulse Rate 92 H 97 H 94 H Respiratory Rate 18 22 Blood Pressure 115/56 L 130/62 Pulse Oximetry 100 100 100 06/11/18 20:00 06/11/18 20:50 06/11/18 21:00 Temperature 97.7 F Pulse Rate 94 H 84 71 Respiratory Rate Blood Pressure 131/63 Pulse Oximetry 99 100 100 06/11/18 21:50 06/11/18 22:00 06/11/18 22:50 Temperature Pulse Rate 68 69 70 Respiratory Rate 18 22 18 Blood Pressure 112/53 L 136/59 L Pulse Oximetry 100 100 99 06/11/18 23:00 06/11/18 23:50 06/12/18 00:00 Temperature 98.2 F Pulse Rate 73 84 81 Respiratory Rate 21 Blood Pressure 127/58 L Pulse Oximetry 100 99 98 06/12/18 00:50 06/12/18 01:00 06/12/18 01:50 Temperature Pulse Rate 85 85 90 Respiratory Rate 18 Blood Pressure 123/62 147/63 H Pulse Oximetry 100 100 100 06/12/18 02:00 06/12/18 03:00 06/12/18 04:00 Temperature 99.2 F Pulse Rate 91 H 92 H 92 H Respiratory Rate 18 14 Blood Pressure 142/64 H 132/60 Pulse Oximetry 99 99 99 06/12/18 05:00 06/12/18 06:00 Temperature Pulse Rate 106 H 108 H Respiratory Rate 24 20 Blood Pressure 148/67 H 136/59 L Pulse Oximetry 99 99 Intake & Output 06/11/18 06/12/18 06/12/18 18:59 06:59 18:59 Intake Total 1783 / 1783 525 / 525 Output Total 925 / 925 525 / 525 Balance 858 / 858 0 / 0 Weight 68.3 kg Intake: IV 1000 / 1000 D5W + KCL 20 mEq Inj 1,000 ML @ 1000 / 1000 50 mls/hr IV.CONT .Q20H [facility] Rx #:[id number] Tube Feeding 633 / 633 525 / 525 Water Bolus Amount 150 / 150 Output: Urine 225 / 225 Gastric Drainage 700 / 700 525 / 525 Right Nare Nasogastric Tube 700 / 700 525 / 525 Other: # Voids 1 Date of Last Bowel Movement 06/11/18 06/11/18 # Bowel Movements 1 Result Diagrams: 06/12/18 05:10 06/12/18 05:10 Laboratory Results: Laboratory Results - last 24 hr 06/12/18 06/12/18 05:10 05:10 WBC 8.4 RBC 3.10 L Hgb 9.3 L Hct 27.5 L MCV 88.7 MCH 29.9 MCHC 33.7 RDW 17.0 Plt Count 137 L MPV 8.7 Sodium 134 L Potassium 4.4 Chloride 104 Carbon Dioxide 21.1 Anion Gap 9 BUN 37 H Creatinine 0.87 Estimated GFR 62 L Random Glucose 95 Calcium 9.2 Random Vancomycin 12.8 Medications: Active Medications Generic Name Dose Route Start Last Admin Trade Name Joaoq PRN Reason Stop Dose Admin Acetaminophen 650 mg 05/17/18 06:10 05/28/18 16:28 Tylenol PO 650 mg Q4H PRN Administration Temp > 100.4 Albuterol 2.5 mg 05/21/18 23:28 05/28/18 08:20 Albuterol Neb (Prn) NEB 2.5 mg Q2HR NEB PRN Administration WHEEZING Amlodipine Besylate 5 mg 05/26/18 10:00 06/11/18 09:28 Norvasc J-TUBE 5 mg DAILY [facility] Administration Artificial Tears 1 applicatio 05/22/18 21:00 06/11/18 20:31 Lacrilube Opth Oint EACH EYE 1 applicatio BID [facility] Administration Clonidine HCl 0.1 mg 05/26/18 11:24 05/26/18 23:31 Catapres PO 0.1 mg Q6H PRN Administration SBP>160, DBP>90 Docusate Sodium 50 mg 06/06/18 09:00 06/11/18 20:51 Colace Liq PO 50 mg BID [facility] Administration Enoxaparin Sodium 40 mg 06/05/18 10:00 06/11/18 09:28 Lovenox Inj SQ 40 mg DAILY [facility] Administration Fentanyl Citrate 25 mcg 06/01/18 08:40 06/12/18 03:34 Fentanyl Inj IV.PUSH 25 mcg Q1H PRN Administration Any pain Heparin Sodium (Porcine) 0 unit 05/21/18 09:00 06/11/18 09:28 Heparin Central Flush IV.FLUSH Not Given DAILY [facility] Heparin Sodium (Porcine) 0 unit 05/20/18 16:43 06/09/18 09:07 Heparin Central Flush IV.FLUSH 400 unit PRN PRN Administration Flush PICC Line Hydralazine HCl 10 mg 05/23/18 00:24 05/28/18 16:12 Apresoline Inj IV.PUSH 10 mg Q1H PRN Administration Sbp>165, Dbp>90 Sodium Chloride 500 mls @ 30 mls/hr 05/18/18 07:00 05/18/18 07:00 Ns Inj IV.SIG Not Given .Q10H [facility] Magnesium Sulfate 2 gm/ Sodium 100 mls @ 50 mls/hr 05/22/18 22:43 05/30/18 08 :00 Chloride IV.SIG Infused UNSCH PRN Infusion For Magnesium 1.2 - 1.6 mg/dL Potassium Chloride 40 meq in 100 mls @ 25 mls/hr 05/22/18 22:43 05/30/18 08: 00 Kcl 40 Meq Premix Inj IV.SIG Infused Q2H PRN Infusion For Potassium 2.8 - 3.2 mEq/L Potassium Chloride 20 meq in 100 mls @ 50 mls/hr 05/22/18 22:43 06/04/18 17: 12 Kcl 20 Meq Premix Inj IV.SIG Infused Q2H PRN Infusion For Potassium 3.3 - 3.5 mEq/L Potassium Chloride 40 meq in 100 mls @ 25 mls/hr 05/22/18 22:43 05/30/18 08: 00 Kcl 40 Meq Premix Inj IV.SIG Infused UNSCH PRN Infusion For Potassium 3.3 - 3.5 mEq/L Potassium Chloride 20 meq in 100 mls @ 50 mls/hr 05/22/18 22:43 06/02/18 17: 30 Kcl 20 Meq Premix Inj IV.SIG Infused Q2H PRN Infusion For Potassium 2.8 - 3.2 mEq/L Potassium Phosphate 30 mmol/ 260 mls @ 42 mls/hr 05/22/18 22:43 05/23/18 12: 57 Sodium Chloride IV.SIG Infused UNSCH PRN Infusion SEE LABEL COMMENTS Vancomycin HCl 1,750 mg/ 517.5 mls @ 250 mls/hr 06/06/18 06:00 06/09/18 08:40 Sodium Chloride IV.SIG Infused Q24H [facility] Infusion Potassium Chloride/Dextrose 1,000 mls @ 50 mls/hr 06/06/18 08:45 06/11/18 11: 44 D5w + Kcl 20 Meq Inj IV.CONT 50 mls/hr .Q20H [facility] Administration Labetalol HCl 20 mg 05/26/18 07:44 05/27/18 03:30 Trandate Inj IV.PUSH 20 mg Q2H PRN Administration KEEP SBP<160 Lidocaine HCl 1 patch 06/08/18 14:00 06/11/18 09:21 Lidoderm 5% Patch.12 Hr T-DERMAL 1 patch DAILY [facility] Administration Lisinopril 5 mg 06/06/18 09:00 06/11/18 09:26 Prinivil PO 5 mg DAILY [facility] Administration Lorazepam 1 mg 06/09/18 10:00 06/12/18 04:28 Ativan Inj IV.PUSH 1 mg Q6H PRN Administration ANXIETY Metoprolol Tartrate 25 mg 06/06/18 09:00 06/11/18 20:30 Lopressor PO 25 mg BID [facility] Administration Ondansetron HCl 4 mg 05/17/18 06:10 06/12/18 03:34 Zofran Inj IV.PUSH 4 mg Q6H PRN Administration NAUSEA OR VOMITING Pantoprazole Sodium 40 mg 06/09/18 10:00 06/11/18 21:04 Protonix Inj IV.PUSH 40 mg Q12H [facility] Administration Patch Removal 1 each 06/08/18 21:00 06/11/18 20:30 Remove Old Patch T-DERMAL 1 each HS [facility] Administration Potassium Bicarb/Potassium Chloride 50 meq 05/22/18 22:43 06/03/18 05:53 K-Lyte Cl Eff PO 50 meq UNSCH PRN Administration For Potassium 3.3 - 3.5 mEq/L Potassium Bicarb/Potassium Chloride 25 meq 05/26/18 21:00 06/11/18 20:30 K-Lyte Cl Eff NG/OG 25 meq BID [facility] Administration Prednisone 10 mg 06/10/18 09:15 06/11/18 09:27 Deltasone Liq PO 10 mg DAILY [facility] Administration Prochlorperazine Edisylate 10 mg 05/17/18 09:06 06/09/18 11:22 Compazine Inj IV.PUSH 10 mg Q6H PRN Administration NAUSEA Scopolamine 1 patch 06/09/18 15:00 06/09/18 16:51 Transderm-Scop 1.5 Mg Patch.72hr T-DERMAL 1 patch Q3D [facility] Administration Sennosides 8.8 mg 06/06/18 09:00 06/11/18 20:30 Senna Liq PO 8.8 mg BID [facility] Administration Sodium Chloride 0 ml 05/21/18 09:00 06/11/18 09:25 Ns Flush IV.FLUSH 2 ml DAILY [facility] Administration Sodium Chloride 0 ml 05/20/18 16:43 05/26/18 01:39 Ns Flush IV.FLUSH 2 ml PRN PRN Administration FLUSH AFTER USING IV ACCESS Objective Remarks: GENERAL: Awake and alert but pleasantly confused. NG tube draining. Has J- tube. Presently in restraints. SKIN: Warm and dry. HEAD: Normocephalic. EYES: No scleral icterus. No injection or drainage. NECK: Supple, trachea midline. No JVD or lymphadenopathy. LYMPHATIC: No adenopathy. CARDIOVASCULAR: Regular rate and rhythm without murmurs. RESPIRATORY: Breath sounds equal bilaterally. No accessory muscle use. GASTROINTESTINAL: Abdomen soft, non-tender, nondistended. EXTREMITIES: Trace edema MUSCULOSKELETAL: Poor muscle tone. NEUROLOGICAL: Mild confusion Assessment/Plan - Plan Ms. 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 Patient responded to steroids. Plan: 1. Platelets are 137,000. Patient currently on prednisone 10 mg daily. At this point I believe the prednisone can be stopped and she can be observed. She has not been on steroids for a long period of time and therefore I do not feel that she requires a taper presently.. 2: Findings on CT of the thorax noted and discussed with her daughter Socorro. I believe that workup can be delayed until she recovers. If we were to find a lung cancer she is not a candidate for treatment presently. If she recovers the first thing I would do would be a PET scan to see if there is evidence of disease elsewhere and then if there was no evidence of disease elsewhere I would pursue the lesion in the right hilum with a bronchoscopy. The family does not want to pursue the right hilar lesion with bronchoscopy presently given her state of illness.
[2018-06-12] MEDS: Potassium Chloride 25 MEQ Effervescent Tablet NG/OG SCH ×2 (09:26→20:44)
[2018-06-12] MEDS: predniSONE Liq 5 MG/5 ML UDC PO SCH (09:27)
[2018-06-12] MEDS: Docusate Sodium Liq 100 MG/10 ML UDC PO SCH ×2 (09:27→20:43)
[2018-06-12] MEDS: Heparin Central Flush 100 UNIT/ML 5 ML Vial IV.FLUSH SCH (09:27)
[2018-06-12] MEDS: Metoprolol Tartrate 25 MG Tablet PO SCH ×2 (09:28→20:43)
[2018-06-12] MEDS: Lidocaine 5% Patch T-DERMAL SCH (09:28)
[2018-06-12] MEDS: Artificial Tears Opth Oint 3.5 GM Tube EACH EYE SCH ×2 (09:28→20:44)
[2018-06-12] MEDS: Enoxaparin Inj 40 MG/0.4 ML Syringe SQ SCH (09:28)
[2018-06-12] MEDS: Lisinopril 5 MG Tablet PO SCH (09:29)
[2018-06-12] MEDS: Sennosides Liq 8.8 MG/5 ML UDC PO SCH ×2 (09:29→20:43)
[2018-06-12] MEDS: amLODIPine 5 MG Tablet J-TUBE SCH (09:29)
[2018-06-12] MEDS: Pantoprazole Inj 40 MG Vial IV.PUSH SCH ×2 (09:29→22:05)
[2018-06-12] MEDS ORDERED: Vancomycin Inj 1,250 MG in Sodium Chlor 0.9% Inj 250 ML IV.SIG ONE (10:00)
--- NOTE | 2018-06-12 10:57 | P.PNIM ---
Subjective Interval history: Patient had periods of agitation last night. She was given Ativan which did not help. She required restraint overnight. Better this morning. Awake, alert. Calm. NGT output is less. Physical Exam Vital signs: Last Vital Signs Temp 99.2 F 06/12/18 04:00 Pulse 84 06/12/18 10:00 Resp 18 06/12/18 10:52 BP 117/55 L 06/12/18 09:50 Pulse Ox 100 06/12/18 10:00 Intake & Output 06/10/18 06/11/18 06/12/18 06/13/18 06:59 06:59 06:59 06:59 Intake Total 3278.5 / 3278.5 1736 / 1736 2308 / 2308 1000 / 1000 Output Total 3800 / 3800 2100 / 2100 1450 / 1450 Balance -521.5 / -521.5 -364 / -364 858 / 858 1000 / 1000 Weight 67.8 kg 68.3 kg Urinary Catheter Management Indwelling Urethral Catheter: Cath placed during this visit: yes, but has since been removed by the nurse Urethral indwelling: No Insertion date: 05/20/18 Insertion time: 19:55 Removal date: 06/10/18 Removal time: 12:10 Results Labs CBC & Chem 7: 06/12/18 05:10 06/12/18 05:10 Assessment and Plan (1) GI bleed: Code(s): K92.2 - Gastrointestinal hemorrhage, unspecified Status: Acute Plan 82-year-old female with a history significant for amyloidosis with prolonged hospital course and has been under the care of the critical care service for GI bleeding. The patient underwent emergent IA embolization 05/19. s/p EGD 05/19 and again 05/20 with ischemia present. s/p emergent exploratory laparotomy. She is postop resection of fourth portion of duodenum with duodenal diverticulum and proximal jejunum due to GI bleed and ischemic necrosis. She had a gastrojejunostomy and closure of abdominal wall and placement of feeding jejunostomy a couple of weeks ago. Upper GI bleed Acute hypoxic and hypercarbic respiratory failure-resolved s/p emergent ex lap with duodenal and jejunal resection, initially left in discontinuity with open abdomen 05/20 Now reconstructed with abdominal wall closure. Severe acute anemia secondary to blood loss requiring transfusion- persistent duodenal ulcer Type II NSTEMI secondary to demand ischemia from severe anemia s/p EGD 05/19, 05/20. s/p emergent IR embolization 05/19 severe acute thrombocytopenia - ITP improving acute protein calorie malnutrition- moderate to severe Fluid overload sepsis Pneumonia Staph aureus bacteremia Right hilar mass H/o Right lower lobectomy, and adenoca lung Probable ICU delirium Plan: - Extubated 05/31/2018 tolerating well. - Abx with azactam, zyvox, flagyl via G tube. ID following. micafungin added by ID on 05/28. - Blood cultures from 05/28 growing MSSA. Sputum culture Citrobacter and staph aureus - Pulmonary consult requested for right hilar mass on CT chest done on 05/29. Per Dr. Pack's note, daughter Nohemy Davis wants to hold off bronchoscopy. Once better patient can make the decision herself. Appreciate input from oncology. Plan would be for outpatient follow-up with PET scan and further workup based on the results. - Serial hemoglobin, transfuse to keep hgb > 7 - serially check platelets, transfuse to keep plt > 50k. Tapering solumedrol, platelets remain acceptable. - tube feeds per general surgery, through jejunostomy. NGT to suction. Gastrografin study completed; very slow gastric emptying. - Strict intake output, monitor and replete electrolytes, follow BUN and creatinine. - ICU electrolyte replacement protocol - Subcu heparin per Heme-onc. - D5 and water with 20 mEq KCl per liter -Continue Protonix. Negative in fluid balance today. Continue to monitor. - Keller Dced. -Discontinue Ativan. Add Seroquel at night as needed for severe agitation. Overall impression: Slowly improving, extubated and breathing comfortably, remains weak. Source of bacteremia remains unclear but she appears well covered and is getting stronger. Monitor fluid status closely. She has been losing a lot of fluid from NGT. This is improving. Discontinue IV fluid and add free water to feeding tubes.. Continue supportive nutrition through the feeding jejunostomy. Progress Note: Quality VTE Deep Vein Thrombosis/Pulmonary Embolism Present on Admission: No _ (1) GI bleed Qualifiers: GI bleed type/associated pathology: Gastritis type:
--- NOTE | 2018-06-12 15:54 | P.PNGS ---
Subjective Patient reports: no new complaints (Remains pleasantly confused.) Physical Exam Vital signs: Vital Signs 06/11/18 16:00 06/11/18 17:00 06/11/18 18:00 Temperature 97.6 F Pulse Rate 88 92 H 90 Respiratory Rate 20 20 18 Blood Pressure 109/75 116/58 L 110/81 Pulse Oximetry 100 100 100 06/11/18 18:50 06/11/18 19:00 06/11/18 19:50 Temperature Pulse Rate 92 H 97 H 94 H Respiratory Rate 18 22 Blood Pressure 115/56 L 130/62 Pulse Oximetry 100 100 100 06/11/18 20:00 06/11/18 20:50 06/11/18 21:00 Temperature 97.7 F Pulse Rate 94 H 84 71 Respiratory Rate Blood Pressure 131/63 Pulse Oximetry 99 100 100 06/11/18 21:50 06/11/18 22:00 06/11/18 22:50 Temperature Pulse Rate 68 69 70 Respiratory Rate 18 22 18 Blood Pressure 112/53 L 136/59 L Pulse Oximetry 100 100 99 06/11/18 23:00 06/11/18 23:50 06/12/18 00:00 Temperature 98.2 F Pulse Rate 73 84 81 Respiratory Rate 21 Blood Pressure 127/58 L Pulse Oximetry 100 99 98 06/12/18 00:50 06/12/18 01:00 06/12/18 01:50 Temperature Pulse Rate 85 85 90 Respiratory Rate 18 Blood Pressure 123/62 147/63 H Pulse Oximetry 100 100 100 06/12/18 02:00 06/12/18 02:50 06/12/18 03:00 Temperature Pulse Rate 91 H 92 H 93 H Respiratory Rate 18 Blood Pressure 142/64 H 142/64 H Pulse Oximetry 99 100 99 06/12/18 03:50 06/12/18 04:00 06/12/18 04:50 Temperature 99.2 F Pulse Rate 97 H 93 H 103 H Respiratory Rate 14 Blood Pressure 132/60 132/60 148/67 H Pulse Oximetry 99 99 99 06/12/18 05:00 06/12/18 05:04 06/12/18 05:50 Temperature Pulse Rate 106 H 100 H 109 H Respiratory Rate 24 Blood Pressure 148/67 H 136/59 L Pulse Oximetry 99 99 99 06/12/18 06:00 06/12/18 06:50 06/12/18 07:00 Temperature Pulse Rate 110 H 104 H 110 H Respiratory Rate 20 Blood Pressure 136/59 L 125/67 Pulse Oximetry 99 100 93 L 06/12/18 07:50 06/12/18 08:00 06/12/18 09:00 Temperature Pulse Rate 113 H 108 H 111 H Respiratory Rate Blood Pressure 123/85 Pulse Oximetry 100 06/12/18 09:43 06/12/18 09:50 06/12/18 10:00 Temperature Pulse Rate 101 H 87 75 Respiratory Rate Blood Pressure 123/60 117/55 L Pulse Oximetry 100 100 100 06/12/18 10:52 06/12/18 11:06 06/12/18 11:50 Temperature Pulse Rate 75 76 Respiratory Rate 18 Blood Pressure 117/53 L 130/61 Pulse Oximetry 99 100 06/12/18 12:00 06/12/18 12:50 06/12/18 13:00 Temperature Pulse Rate 90 97 H 94 H Respiratory Rate Blood Pressure 114/55 L Pulse Oximetry 100 100 100 06/12/18 13:50 06/12/18 14:00 06/12/18 14:50 Temperature Pulse Rate 94 H 90 89 Respiratory Rate Blood Pressure 110/52 L 110/56 L Pulse Oximetry 79 L 100 06/12/18 15:00 Temperature Pulse Rate 92 H Respiratory Rate Blood Pressure Pulse Oximetry 100 Intake & Output 06/11/18 06/12/18 06/12/18 18:59 06:59 18:59 Intake Total 1783 / 1783 525 / 525 1262.5 / 1262.5 Output Total 925 / 925 525 / 525 Balance 858 / 858 0 / 0 1262.5 / 1262.5 Weight 68.3 kg Intake: IV 1000 / 1000 1262.5 / 1262.5 D5W + KCL 20 mEq Inj 1,000 ML @ 1000 / 1000 1000 / 1000 50 mls/hr IV.CONT .Q20H [facility] Rx #:[id number] Vancomycin Inj 1,250 MG In NS 262.5 / 262.5 Inj 250 ML @ 250 mls/hr IV.SIG ONCE ONE Rx#:[id number] Tube Feeding 633 / 633 525 / 525 Water Bolus Amount 150 / 150 Output: Urine 225 / 225 Gastric Drainage 700 / 700 525 / 525 Right Nare Nasogastric Tube 700 / 700 525 / 525 Other: # Voids 1 Date of Last Bowel Movement 06/11/18 06/11/18 06/11/18 # Bowel Movements 1 Narrative: She is awake and alert. She is disoriented. She is pleasantly confused. Her midline incision is well approximated, well-healed. Jejunostomy site continues to look good. She is tolerating tube feeds. Her extremities are nonedematous. - Urinary Catheter Management Indwelling Urethral Catheter Cath placed during this visit: yes, but has since been removed by the nurse Urethral indwelling: No Reason for continuing: Hourly intake/output Insertion date: 05/20/18 Insertion time: 19:55 Removal date: 06/10/18 Removal time: 12:10 Results - Labs 06/12/18 05:10 06/12/18 05:10 Laboratory Results - last 24 hr 06/12/18 06/12/18 05:10 05:10 WBC 8.4 RBC 3.10 L Hgb 9.3 L Hct 27.5 L MCV 88.7 MCH 29.9 MCHC 33.7 RDW 17.0 Plt Count 137 L MPV 8.7 Sodium 134 L Potassium 4.4 Chloride 104 Carbon Dioxide 21.1 Anion Gap 9 BUN 37 H Creatinine 0.87 Estimated GFR 62 L Random Glucose 95 Calcium 9.2 Random Vancomycin 12.8 - Imaging Imaging: ITS Impressions GI Bleed Scan Nuclear Medicine 05/19/18 00:00 CONCLUSION: 1. 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 Patient was emergently brought to the interventional radiology department from the nuclear medicine department for angiography and intervention. Mesenteric Arteriogram 05/19/18 14:37 CONCLUSION: 1. 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 2. 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 PICC Line Insertion 05/20/18 00:00 CONCLUSION: 1. Uncomplicated central venous Power PICC line placement. 2. The PICC line can be used immediately. Abdomen X-Ray 05/28/18 05:23 CONCLUSION: No dilated bowel loops. Abdomen/Pelvis CT 05/29/18 00:00 CONCLUSION: 1. Since the prior CT, midline laparotomy with gastrojejunostomy has been performed. Anastomosis appears patent. There is a nasogastric tube which extends beyond the site of surgery and is in the first portion of the duodenum. Unchanged metallic structure near the ligament of Treitz, etiology uncertain. 2. A jejunostomy tube has also been placed without evidence of an acute complication. 3. Small, nonspecific free fluid in the pelvic cavity. No evidence of abscess. 4. No acute solid organ abnormality. Cysts of both kidneys and nonobstructing stones of the left kidney are again noted. 5. Sigmoid colon diverticulosis without diverticulitis. Chest CT 05/29/18 11:52 CONCLUSION: 1. 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 2. Pneumonia with volume loss in the right lower lobe. 3. Coronary artery calcification. 4. Emphysema. Gastrografin Study 06/02/18 00:00 CONCLUSION: 1. During the first 30 minutes there was only minimal passage of contrast into the gastrojejunostomy. 2. On the delayed 1 hour film there is apparent contrast noted in the more distal small bowel. Chest X-Ray 06/03/18 06:00 CONCLUSION: No acute cardiopulmonary disease identified. Assessment and Plan - Assessment (1) GI bleed Code(s): K92.2 - Gastrointestinal hemorrhage, unspecified Status: Acute Plan: 82 year old female s/p exploratory laparotomy, gastrojejunostomy, closure, j tube -Continue NGT to LIWS as output still remains high -No meds through NGT at this time -Tolerating TF at goal -Continue aggressive PT/OT - Plan The exam, history, and the medical decision-making described in the above note were completed with the assistance of the mid-level provider. I reviewed and agree with the findings presented. I attest that I had a [id number] encounter with the patient on the same day, and personally performed and documented my assessment and findings in the medical record. 06/12/2018 Personally evaluated the patient in room 1309 with LUDWIG Rob at bedside. Bedside RN was present as well. Patient is postop resection of duodenal diverticulum the fourth portion of duodenum and proximal jejunum due to GI bleed and ischemia of the jejunum following a angiography with embolization. Patient underwent reconstruction with a gastrojejunostomy. She is tolerating tube feeds. She is confused. NG drainage appears to be slightly decreased. We will order DC of nasogastric tube in the next day or 2. I will be in to see the patient tomorrow.
[2018-06-12] MEDS: Scopalamine 1.5 MG Patch T-DERMAL SCH (16:07)
[2018-06-13] MEDS: QUEtiapine 25 MG Tablet PO PRN ×2 (01:37→23:45)
[2018-06-13 04:54] LABS: Hematocrit 27.2 % (35.0-46.0); Hemoglobin 9.2 gm/dL (11.6-15.3); Mean Corpuscular HGB Conc 33.9 % (32.0-36.0); Mean Corpuscular Hemoglobin 29.7 pg (27.0-34.0); Mean Corpuscular Volume 87.8 fL (80.0-100.0); Mean Platelet Volume 8.6 fL (7.0-11.0); Platelet Count 133 th/mm3 (150-450); Red Cell Distribution Width 17.8 % (11.6-17.2); White Blood Count 9.7 th/mm3 (4.0-11.0)
[2018-06-13 05:19] LABS: Calcium 9.4 mg/dL (8.5-10.1); Carbon Dioxide 16.7 meq/L (21.0-32.0); Potassium 5.2 meq/L (3.5-5.1); Vancomycin,Random 27.9 Comment
[2018-06-13] MEDS ORDERED: Sodium Chlor 0.9% Inj 500 ML IV.SIG ONE (06:08)
[2018-06-13] MEDS: Heparin Central Flush 100 UNIT/ML 5 ML Vial IV.FLUSH SCH (09:32)
[2018-06-13] MEDS: Artificial Tears Opth Oint 3.5 GM Tube EACH EYE SCH (09:32)
[2018-06-13] MEDS: Potassium Chloride 25 MEQ Effervescent Tablet NG/OG SCH (09:32)
[2018-06-13] MEDS: Docusate Sodium Liq 100 MG/10 ML UDC PO SCH ×2 (09:32→21:25)
[2018-06-13] MEDS: Metoprolol Tartrate 25 MG Tablet PO SCH ×2 (09:32→21:25)
[2018-06-13] MEDS: Lidocaine 5% Patch T-DERMAL SCH (09:32)
[2018-06-13] MEDS: Pantoprazole Inj 40 MG Vial IV.PUSH SCH ×2 (09:33→21:24)
[2018-06-13] MEDS: Sennosides Liq 8.8 MG/5 ML UDC PO SCH ×2 (09:33→21:25)
[2018-06-13] MEDS: amLODIPine 5 MG Tablet J-TUBE SCH (09:33)
[2018-06-13] MEDS: Enoxaparin Inj 40 MG/0.4 ML Syringe SQ SCH (09:33)
[2018-06-13] MEDS: Lisinopril 5 MG Tablet PO SCH (09:33)
--- NOTE | 2018-06-13 11:58 | P.PNGS ---
Subjective Patient reports: no new complaints (Patient is sleeping today. Her daughter is at her bedside. She does awake intermittently opens her eyes and then falls back to sleep.) Physical Exam Vital signs: Vital Signs 06/12/18 12:00 06/12/18 12:50 06/12/18 13:00 Temperature Pulse Rate 90 97 H 94 H Respiratory Rate Blood Pressure 114/55 L Pulse Oximetry 100 100 100 06/12/18 13:50 06/12/18 14:00 06/12/18 14:50 Temperature Pulse Rate 94 H 90 89 Respiratory Rate Blood Pressure 110/52 L 110/56 L Pulse Oximetry 79 L 100 06/12/18 15:00 06/12/18 15:50 06/12/18 16:00 Temperature Pulse Rate 92 H 92 H 96 H Respiratory Rate Blood Pressure 108/76 Pulse Oximetry 100 100 99 06/12/18 16:50 06/12/18 17:00 06/12/18 17:50 Temperature Pulse Rate 97 H 95 H 97 H Respiratory Rate Blood Pressure 116/53 L 109/52 L Pulse Oximetry 96 06/12/18 18:00 06/12/18 18:26 06/12/18 20:00 Temperature Pulse Rate 84 97 H 69 Respiratory Rate 18 Blood Pressure 97/52 L Pulse Oximetry 91 L 06/12/18 21:06 06/12/18 21:11 06/12/18 21:16 Temperature 97.8 F Pulse Rate 91 H 97 H 92 H Respiratory Rate 18 Blood Pressure 101/54 L 104/54 L 99/50 L Pulse Oximetry 95 97 95 06/12/18 21:21 06/12/18 21:26 06/12/18 21:31 Temperature Pulse Rate 90 96 H 93 H Respiratory Rate Blood Pressure 120/56 L 118/56 L 107/49 L Pulse Oximetry 95 96 94 L 06/12/18 21:36 06/12/18 21:41 06/12/18 21:46 Temperature Pulse Rate 96 H 94 H 96 H Respiratory Rate Blood Pressure 125/58 L 122/56 L 121/59 L Pulse Oximetry 97 93 L 95 06/12/18 21:51 06/12/18 21:56 06/12/18 22:00 Temperature Pulse Rate 95 H 95 H 95 H Respiratory Rate 18 Blood Pressure 114/58 L 120/58 L Pulse Oximetry 06/12/18 22:01 06/12/18 22:06 06/12/18 22:11 Temperature Pulse Rate 96 H 95 H 89 Respiratory Rate Blood Pressure 127/55 L 118/83 117/67 Pulse Oximetry 06/12/18 22:16 06/12/18 22:21 06/12/18 22:26 Temperature Pulse Rate 78 73 74 Respiratory Rate Blood Pressure 118/67 123/54 L 111/55 L Pulse Oximetry 95 87 L 06/12/18 22:31 06/12/18 22:36 06/12/18 22:41 Temperature Pulse Rate 68 69 71 Respiratory Rate Blood Pressure 90/45 L 118/56 L 124/53 L Pulse Oximetry 93 L 96 06/12/18 22:46 06/12/18 22:51 06/12/18 22:56 Temperature Pulse Rate 69 69 70 Respiratory Rate Blood Pressure 118/56 L 100/46 L 110/53 L Pulse Oximetry 97 97 97 06/12/18 23:00 06/12/18 23:01 06/12/18 23:06 Temperature Pulse Rate 70 69 72 Respiratory Rate 18 Blood Pressure 99/44 L 88/51 L Pulse Oximetry 98 97 98 06/12/18 23:11 06/12/18 23:12 06/12/18 23:15 Temperature Pulse Rate 70 70 71 Respiratory Rate 18 Blood Pressure 80/50 L 80/41 L 76/38 L Pulse Oximetry 97 96 98 06/12/18 23:16 06/12/18 23:21 06/12/18 23:26 Temperature Pulse Rate 69 72 71 Respiratory Rate Blood Pressure 82/40 L 106/54 L 108/54 L Pulse Oximetry 97 97 96 06/12/18 23:31 06/12/18 23:36 06/12/18 23:41 Temperature Pulse Rate 73 73 75 Respiratory Rate Blood Pressure 101/51 L 112/55 L 113/54 L Pulse Oximetry 98 96 97 06/12/18 23:46 06/12/18 23:51 06/12/18 23:56 Temperature Pulse Rate 75 75 75 Respiratory Rate Blood Pressure 119/58 L 117/56 L 120/59 L Pulse Oximetry 96 97 96 06/13/18 00:00 06/13/18 01:00 06/13/18 02:00 Temperature 97.8 F Pulse Rate 76 88 102 H Respiratory Rate 18 16 Blood Pressure 131/62 73/33 L Pulse Oximetry 97 97 96 06/13/18 02:03 06/13/18 02:04 06/13/18 02:07 Temperature Pulse Rate 102 H 101 H 105 H Respiratory Rate Blood Pressure 71/35 L 103/51 L 101/53 L Pulse Oximetry 95 95 94 L 06/13/18 02:19 06/13/18 03:00 06/13/18 04:00 Temperature 97.8 F Pulse Rate 102 H 101 H 104 H Respiratory Rate 16 Blood Pressure 102/54 L 100/53 L 103/59 L Pulse Oximetry 96 98 98 06/13/18 05:00 06/13/18 06:00 06/13/18 07:00 Temperature Pulse Rate 92 H 99 H 97 H Respiratory Rate 17 17 Blood Pressure 108/53 L 128/59 L 127/58 L Pulse Oximetry 98 97 06/13/18 08:00 06/13/18 08:50 06/13/18 09:00 Temperature Pulse Rate 101 H 101 H 100 H Respiratory Rate Blood Pressure Pulse Oximetry 99 94 L 06/13/18 09:08 06/13/18 10:00 06/13/18 11:00 Temperature Pulse Rate 94 H 76 Respiratory Rate Blood Pressure 133/59 L Pulse Oximetry 98 99 98 Intake & Output 06/12/18 06/13/18 06/13/18 18:59 06:59 18:59 Intake Total 1862.5 / 1862.5 836 / 836 500 / 500 Output Total 850 / 850 Balance 1012.5 / 1012.5 836 / 836 500 / 500 Weight 68.8 kg Intake: IV 1262.5 / 1262.5 200 / 200 500 / 500 D5W + KCL 20 mEq Inj 1,000 ML @ 1000 / 1000 200 / 200 50 mls/hr IV.CONT .Q20H [facility] Rx #:[id number] NS Inj 500 ML @ Wide Open IV. 500 / 500 SIG BOLUS ONE Rx#:[id number] Vancomycin Inj 1,250 MG In NS 262.5 / 262.5 Inj 250 ML @ 250 mls/hr IV.SIG ONCE ONE Rx#:[id number] Tube Feeding 600 / 600 636 / 636 Output: Gastric Drainage 850 / 850 Right Nare Nasogastric Tube 850 / 850 Other: # Voids 1 # Incontinent Voids 4 3 Date of Last Bowel Movement 06/11/18 06/13/18 06/13/18 Narrative: Abdomen soft nondistended nontender. - Urinary Catheter Management Indwelling Urethral Catheter Cath placed during this visit: yes, but has since been removed by the nurse Urethral indwelling: No Reason for continuing: Hourly intake/output Insertion date: 05/20/18 Insertion time: 19:55 Removal date: 06/10/18 Removal time: 12:10 Results - Labs 06/13/18 04:15 06/13/18 04:07 Laboratory Results - last 24 hr 06/13/18 06/13/18 04:07 04:15 WBC 9.7 RBC 3.10 L Hgb 9.2 L Hct 27.2 L MCV 87.8 MCH 29.7 MCHC 33.9 RDW 17.8 H Plt Count 133 L MPV 8.6 Sodium 132 L Potassium 5.2 H D Chloride 104 Carbon Dioxide 16.7 L Anion Gap 11 BUN 56 H Creatinine 1.25 H Estimated GFR 41 L Random Glucose 109 H Calcium 9.4 Random Vancomycin 27.9 - Imaging Imaging: ITS Impressions GI Bleed Scan Nuclear Medicine 05/19/18 00:00 CONCLUSION: 1. 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 Patient was emergently brought to the interventional radiology department from the nuclear medicine department for angiography and intervention. Mesenteric Arteriogram 05/19/18 14:37 CONCLUSION: 1. 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 2. 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 PICC Line Insertion 05/20/18 00:00 CONCLUSION: 1. Uncomplicated central venous Power PICC line placement. 2. The PICC line can be used immediately. Abdomen X-Ray 05/28/18 05:23 CONCLUSION: No dilated bowel loops. Abdomen/Pelvis CT 05/29/18 00:00 CONCLUSION: 1. Since the prior CT, midline laparotomy with gastrojejunostomy has been performed. Anastomosis appears patent. There is a nasogastric tube which extends beyond the site of surgery and is in the first portion of the duodenum. Unchanged metallic structure near the ligament of Treitz, etiology uncertain. 2. A jejunostomy tube has also been placed without evidence of an acute complication. 3. Small, nonspecific free fluid in the pelvic cavity. No evidence of abscess. 4. No acute solid organ abnormality. Cysts of both kidneys and nonobstructing stones of the left kidney are again noted. 5. Sigmoid colon diverticulosis without diverticulitis. Chest CT 05/29/18 11:52 CONCLUSION: 1. 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 2. Pneumonia with volume loss in the right lower lobe. 3. Coronary artery calcification. 4. Emphysema. Gastrografin Study 06/02/18 00:00 CONCLUSION: 1. During the first 30 minutes there was only minimal passage of contrast into the gastrojejunostomy. 2. On the delayed 1 hour film there is apparent contrast noted in the more distal small bowel. Chest X-Ray 06/03/18 06:00 CONCLUSION: No acute cardiopulmonary disease identified. Assessment and Plan - Assessment (1) GI bleed Code(s): K92.2 - Gastrointestinal hemorrhage, unspecified Status: Acute Plan: 82 year old female s/p exploratory laparotomy, gastrojejunostomy, closure, j tube -Continue NGT to LIWS as output still remains high -No meds through NGT at this time -Tolerating TF at goal -Continue aggressive PT/OT I personally evaluated the patient on 06/13/2018. She remains stable. She is 3 weeks postop gastrojejunostomy and closure of her abdomen. She is off steroids. Her wound is healed well. She is tolerating tube feeds through her jejunostomy tube and having bowel function. She remains disoriented which is expected given the clinical scenario an 82-year-old patient. I discussed with her daughter at bedside and her bedside RN removal of the NG tube with replacement should she have refractory nausea and vomiting. They understand. - Plan The exam, history, and the medical decision-making described in the above note were completed with the assistance of the mid-level provider. I reviewed and agree with the findings presented. I attest that I had a [id number] encounter with the patient on the same day, and personally performed and documented my assessment and findings in the medical record. 06/12/2018 Personally evaluated the patient in room 1309 with LUDWIG Rob at bedside. Bedside RN was present as well. Patient is postop resection of duodenal diverticulum the fourth portion of duodenum and proximal jejunum due to GI bleed and ischemia of the jejunum following a angiography with embolization. Patient underwent reconstruction with a gastrojejunostomy. She is tolerating tube feeds. She is confused. NG drainage appears to be slightly decreased. We will order DC of nasogastric tube in the next day or 2. I will be in to see the patient tomorrow. Discussed Condition With: Bedside RN and daughter
--- NOTE | 2018-06-13 12:07 | P.PNIM ---
Subjective Interval history: Patient seen earlier this morning. She reports she is feeling better. Output from NGT has decreased. Physical Exam Vital signs: Last Vital Signs Temp 97.8 F 06/13/18 04:00 Pulse 76 06/13/18 11:00 Resp 17 06/13/18 06:00 BP 133/59 L 06/13/18 09:08 Pulse Ox 98 06/13/18 11:00 Intake & Output 06/11/18 06/12/18 06/13/18 06/14/18 06:59 06:59 06:59 06:59 Intake Total 1736 / 1736 2308 / 2308 2698.5 / 2698.5 500 / 500 Output Total 2100 / 2100 1450 / 1450 850 / 850 Balance -364 / -364 858 / 858 1848.5 / 1848.5 500 / 500 Weight 68.3 kg 68.8 kg Narrative: GENERAL: Elderly female. Pleasantly confused at times. CARDIOVASCULAR: Normal rate and regular rhythm without murmurs, gallops, or rubs. RESPIRATORY: Good respiratory efforts. Breath sounds equal and clear to auscultation bilaterally. GASTROINTESTINAL: Abdomen soft, nondistended. J feeding tube in place. NGT is draining. Midline incision with Steri-Strips looks clean and dry. MUSCULOSKELETAL: Extremities without cyanosis, or edema. PSYCH: Calm Urinary Catheter Management Indwelling Urethral Catheter: Cath placed during this visit: yes, but has since been removed by the nurse Urethral indwelling: No Insertion date: 05/20/18 Insertion time: 19:55 Removal date: 06/10/18 Removal time: 12:10 Results Labs CBC & Chem 7: 06/13/18 04:15 06/13/18 04:07 Assessment and Plan (1) GI bleed: Code(s): K92.2 - Gastrointestinal hemorrhage, unspecified Status: Acute Plan 82-year-old female with a history significant for amyloidosis with prolonged hospital course and has been under the care of the critical care service for GI bleeding. The patient underwent emergent IA embolization 05/19. s/p EGD 05/19 and again 05/20 with ischemia present. s/p emergent exploratory laparotomy. She is postop resection of fourth portion of duodenum with duodenal diverticulum and proximal jejunum due to GI bleed and ischemic necrosis. She had a gastrojejunostomy and closure of abdominal wall and placement of feeding jejunostomy a couple of weeks ago. Upper GI bleed Acute hypoxic and hypercarbic respiratory failure-resolved s/p emergent ex lap with duodenal and jejunal resection, initially left in discontinuity with open abdomen 05/20 Now reconstructed with abdominal wall closure. Severe acute anemia secondary to blood loss requiring transfusion- persistent duodenal ulcer Type II NSTEMI secondary to demand ischemia from severe anemia s/p EGD 05/19, 05/20. s/p emergent IR embolization 05/19 severe acute thrombocytopenia - ITP improving acute protein calorie malnutrition- moderate to severe Fluid overload sepsis Pneumonia Staph aureus bacteremia Right hilar mass H/o Right lower lobectomy, and adenoca lung Probable ICU delirium Plan: - Extubated 05/31/2018 tolerating well. - Abx with azactam, zyvox, flagyl via G tube. ID following. micafungin added by ID on 05/28. - Blood cultures from 05/28 growing MSSA. Sputum culture Citrobacter and staph aureus - Pulmonary consult requested for right hilar mass on CT chest done on 05/29. Per Dr. Pack's note, daughter Nohemy Davis wants to hold off bronchoscopy. Once better patient can make the decision herself. Appreciate input from oncology. Plan would be for outpatient follow-up with PET scan and further workup based on the results. - Serial hemoglobin, transfuse to keep hgb > 7 - serially check platelets, transfuse to keep plt > 50k. Tapering solumedrol, platelets remain acceptable. - tube feeds per general surgery, through jejunostomy. NGT to suction. Gastrografin study completed; very slow gastric emptying. - Strict intake output, monitor and replete electrolytes, follow BUN and creatinine. - ICU electrolyte replacement protocol - Subcu heparin per Heme-onc. - D5 and water with 20 mEq KCl per liter -Continue Protonix. Negative in fluid balance today. Continue to monitor. - Keller Dced. -Discontinued Ativan. Add Seroquel at night as needed for severe agitation. - NGT to be discontinued per surgery as tolerated. DC schedule potassium due to hyperkalemia. Continue to monitor. Overall impression: Slowly improving, extubated and breathing comfortably, remains weak. Source of bacteremia remains unclear but she appears well covered and is getting stronger. Monitor fluid status closely. She has been losing a lot of fluid from NGT. This is improving. Discontinue IV fluid and add free water to feeding tubes.. Continue supportive nutrition through the feeding jejunostomy. Progress Note: Quality VTE Deep Vein Thrombosis/Pulmonary Embolism Present on Admission: No _ (1) GI bleed Qualifiers: GI bleed type/associated pathology: Gastritis type:
[2018-06-13] MEDS: fentaNYL Citrate Inj 100 MCG/2 ML Ampul IV.PUSH PRN ×3 (13:28→18:59)
--- NOTE | 2018-06-14 00:43 | ECG ---
Date Performed: 06/12/2018 Time Performed: 04:15:16 PTAGE: 82 years EKG: Sinus rhythm . Inferior T wave changes are nonspecific Baseline artifact makes interpretation difficult Borderline ECG PREVIOUS TRACING : 05/28/2018 15.50 Since the previous tracing, no significant change noted DOCTOR: Emiliano Villalta Interpretating Date/Time 06/14/2018 00:41:02
[2018-06-14] MEDS: Artificial Tears Opth Oint 3.5 GM Tube EACH EYE SCH ×3 (02:03→21:59)
[2018-06-14 04:37] LABS: Hematocrit 26.3 % (35.0-46.0); Hemoglobin 8.8 gm/dL (11.6-15.3); Mean Corpuscular HGB Conc 33.4 % (32.0-36.0); Mean Corpuscular Hemoglobin 29.6 pg (27.0-34.0); Mean Corpuscular Volume 88.5 fL (80.0-100.0); Mean Platelet Volume 8.8 fL (7.0-11.0); Platelet Count 77 th/mm3 (150-450); Red Blood Count 2.97 mil/mm3 (4.00-5.30); Red Cell Distribution Width 18.1 % (11.6-17.2); White Blood Count 10.4 th/mm3 (4.0-11.0)
[2018-06-14 04:58] LABS: Calcium 9.3 mg/dL (8.5-10.1); Carbon Dioxide 14.6 meq/L (21.0-32.0); Potassium 5.4 meq/L (3.5-5.1); Vancomycin,Random 17.4 Comment
[2018-06-14] MEDS: Sennosides Liq 8.8 MG/5 ML UDC PO SCH ×2 (08:05→22:00)
[2018-06-14] MEDS: Lidocaine 5% Patch T-DERMAL SCH (08:05)
[2018-06-14] MEDS: Metoprolol Tartrate 25 MG Tablet PO SCH ×2 (08:05→22:00)
[2018-06-14] MEDS: amLODIPine 5 MG Tablet J-TUBE SCH (08:05)
[2018-06-14] MEDS: Lisinopril 5 MG Tablet PO SCH (08:05)
[2018-06-14] MEDS: Enoxaparin Inj 40 MG/0.4 ML Syringe SQ SCH (08:06)
[2018-06-14] MEDS: Docusate Sodium Liq 100 MG/10 ML UDC PO SCH ×2 (08:06→22:00)
[2018-06-14] MEDS: KCL 20 mEq/Dextrose 5% Inj 1,000 ML IV.CONT SCH ×2 (08:07→16:38)
[2018-06-14] MEDS: Heparin Central Flush 100 UNIT/ML 5 ML Vial IV.FLUSH SCH (08:07)
[2018-06-14] MEDS: Pantoprazole Inj 40 MG Vial IV.PUSH SCH ×2 (09:25→22:03)
[2018-06-14] MEDS ORDERED: Vancomycin Inj 1,250 MG in Sodium Chlor 0.9% Inj 250 ML IV.SIG ONE (11:00)
--- NOTE | 2018-06-14 11:36 | P.PNIM ---
Subjective Interval history: Discussed with RN. Patient had 3 episodes of emesis overnight. She is still reports nausea this morning but no further episodes of emesis. Physical Exam Vital signs: Last Vital Signs Temp 97.6 F 06/14/18 04:00 Pulse 81 06/14/18 10:00 Resp 19 06/14/18 06:00 BP 155/67 H 06/14/18 07:42 Pulse Ox 98 06/14/18 11:22 Intake & Output 06/12/18 06/13/18 06/14/18 06/15/18 06:59 06:59 06:59 06:59 Intake Total 2308 / 2308 2698.5 / 2698.5 3165 / 3165 Output Total 1450 / 1450 850 / 850 1150 / 1150 Balance 858 / 858 1848.5 / 1848.5 2014 Weight 68.3 kg 68.8 kg 68.7 kg Narrative: GENERAL: Elderly female. Pleasantly confused at times. CARDIOVASCULAR: Normal rate and regular rhythm without murmurs, gallops, or rubs. RESPIRATORY: Good respiratory efforts. Breath sounds equal and clear to auscultation bilaterally. GASTROINTESTINAL: Abdomen soft, nondistended. J feeding tube in place. Midline incision with Steri-Strips looks clean and dry. MUSCULOSKELETAL: Extremities without cyanosis, or edema. PSYCH: Calm Urinary Catheter Management Indwelling Urethral Catheter: Cath placed during this visit: yes, but has since been removed by the nurse Urethral indwelling: No Insertion date: 05/20/18 Insertion time: 19:55 Removal date: 06/10/18 Removal time: 12:10 Results Labs CBC & Chem 7: 06/14/18 04:09 06/14/18 04:09 Assessment and Plan (1) GI bleed: Code(s): K92.2 - Gastrointestinal hemorrhage, unspecified Status: Acute Plan 82-year-old female with a history significant for amyloidosis with prolonged hospital course and has been under the care of the critical care service for GI bleeding. The patient underwent emergent IA embolization 05/19. s/p EGD 05/19 and again 05/20 with ischemia present. s/p emergent exploratory laparotomy. She is postop resection of fourth portion of duodenum with duodenal diverticulum and proximal jejunum due to GI bleed and ischemic necrosis. She had a gastrojejunostomy and closure of abdominal wall and placement of feeding jejunostomy a couple of weeks ago. Upper GI bleed Acute hypoxic and hypercarbic respiratory failure-resolved s/p emergent ex lap with duodenal and jejunal resection, initially left in discontinuity with open abdomen 05/20 Now reconstructed with abdominal wall closure. Severe acute anemia secondary to blood loss requiring transfusion- persistent duodenal ulcer Type II NSTEMI secondary to demand ischemia from severe anemia s/p EGD 05/19, 05/20. s/p emergent IR embolization 05/19 severe acute thrombocytopenia - ITP improving acute protein calorie malnutrition- moderate to severe Fluid overload sepsis Pneumonia Staph aureus bacteremia Right hilar mass H/o Right lower lobectomy, and adenoca lung Probable ICU delirium ARMANDO Plan: - Extubated 05/31/2018 tolerating well. - Abx with azactam, zyvox, flagyl via G tube. ID following. micafungin added by ID on 05/28. - Blood cultures from 05/28 growing MSSA. Sputum culture Citrobacter and staph aureus - Pulmonary consult requested for right hilar mass on CT chest done on 05/29. Per Dr. Pack's note, daughter Nohemy Davis wants to hold off bronchoscopy. Once better patient can make the decision herself. Appreciate input from oncology. Plan would be for outpatient follow-up with PET scan and further workup based on the results. - Serial hemoglobin, transfuse to keep hgb > 7 - serially check platelets, transfuse to keep plt > 50k. Tapering solumedrol, platelets remain acceptable. - tube feeds per general surgery, through jejunostomy. NGT to suction. Gastrografin study completed; very slow gastric emptying. - Strict intake output, monitor and replete electrolytes, follow BUN and creatinine. - ICU electrolyte replacement protocol - Subcu heparin per Heme-onc. -Continue Protonix. Negative in fluid balance today. Continue to monitor. - Keller Dced. -Discontinued Ativan. Add Seroquel at night as needed for severe agitation. - NGT discontinued. - Continue to monitor nausea and vomiting. Antiemetics as tolerated - IVF for worsening renal function with normal saline at 100 cc/h -Follow-up labs in a.m. for mild hyperkalemia. Overall impression: Slowly improving, extubated and breathing comfortably, remains weak. Source of bacteremia remains unclear but she appears well covered and is getting stronger. Monitor fluid status closely. Continue supportive nutrition through the feeding jejunostomy. Progress Note: Quality VTE Deep Vein Thrombosis/Pulmonary Embolism Present on Admission: No _ (1) GI bleed Qualifiers: GI bleed type/associated pathology: Gastritis type:
[2018-06-14] MEDS: Sod Chloride 0.9% Inj 1,000 ML IV.CONT SCH ×2 (12:02→22:03)
[2018-06-14] MEDS: Acetaminophen 325 MG Tablet PO PRN (19:40)
[2018-06-15 06:54] LABS: Hematocrit 23.9 % (35.0-46.0); Hemoglobin 8.1 gm/dL (11.6-15.3); Mean Corpuscular HGB Conc 33.9 % (32.0-36.0); Mean Corpuscular Hemoglobin 30.1 pg (27.0-34.0); Mean Corpuscular Volume 88.6 fL (80.0-100.0); Mean Platelet Volume 8.3 fL (7.0-11.0); Platelet Count 85 th/mm3 (150-450); Red Blood Count 2.69 mil/mm3 (4.00-5.30); Red Cell Distribution Width 18.4 % (11.6-17.2)
[2018-06-15 07:24] LABS: Calcium 8.7 mg/dL (8.5-10.1); Carbon Dioxide 16.2 meq/L (21.0-32.0); Potassium 4.1 meq/L (3.5-5.1)
[2018-06-15] MEDS: Metoprolol Tartrate 25 MG Tablet PO SCH ×2 (08:12→20:46)
[2018-06-15] MEDS: Lisinopril 5 MG Tablet PO SCH (08:12)
[2018-06-15] MEDS: amLODIPine 5 MG Tablet J-TUBE SCH (08:12)
[2018-06-15] MEDS: Sod Chloride 0.9% Inj 1,000 ML IV.CONT SCH ×2 (08:12→18:43)
[2018-06-15] MEDS: Enoxaparin Inj 40 MG/0.4 ML Syringe SQ SCH (08:13)
[2018-06-15] MEDS: Artificial Tears Opth Oint 3.5 GM Tube EACH EYE SCH ×2 (08:13→20:46)
[2018-06-15] MEDS: Docusate Sodium Liq 100 MG/10 ML UDC PO SCH ×2 (08:13→20:48)
[2018-06-15] MEDS: Heparin Central Flush 100 UNIT/ML 5 ML Vial IV.FLUSH SCH (08:13)
[2018-06-15] MEDS: Lidocaine 5% Patch T-DERMAL SCH (08:13)
[2018-06-15] MEDS: Sennosides Liq 8.8 MG/5 ML UDC PO SCH ×2 (08:14→20:49)
--- NOTE | 2018-06-15 10:40 | P.PNIM ---
Subjective Interval history: Patient is sitting up in the chair. Had a couple episodes of vomiting overnight but states she is feeling better today. Physical Exam Vital signs: Last Vital Signs Temp 98.1 F 06/15/18 08:15 Pulse 73 06/15/18 10:00 Resp 20 06/15/18 00:00 BP 109/51 L 06/15/18 09:52 Pulse Ox 99 06/15/18 10:00 Intake & Output 06/13/18 06/14/18 06/15/18 06/16/18 06:59 06:59 06:59 06:59 Intake Total 2698.5 / 2698.5 3165 / 3165 3382.5 / 3382.5 1000 / 1000 Output Total 850 / 850 1150 / 1150 2049 / 2049 Balance 1848.5 / 1848.5 2014 1332.5 / 1332.5 1000 / 1000 Weight 68.8 kg 68.7 kg 70.7 kg Narrative: GENERAL: Elderly female. Pleasantly confused at times. CARDIOVASCULAR: Normal rate and regular rhythm without murmurs, gallops, or rubs. RESPIRATORY: Good respiratory efforts. Breath sounds equal and clear to auscultation bilaterally. GASTROINTESTINAL: Abdomen soft, nondistended. J feeding tube in place. Midline incision with Steri-Strips looks clean and dry. MUSCULOSKELETAL: Extremities without cyanosis, or edema. PSYCH: Calm Urinary Catheter Management Indwelling Urethral Catheter: Cath placed during this visit: yes, but has since been removed by the nurse Urethral indwelling: No Insertion date: 06/14/18 Insertion time: 18:00 Removal date: 06/10/18 Removal time: 12:10 Results Labs CBC & Chem 7: 06/15/18 06:21 06/15/18 06:21 Assessment and Plan (1) GI bleed: Code(s): K92.2 - Gastrointestinal hemorrhage, unspecified Status: Acute Plan 82-year-old female with a history significant for amyloidosis with prolonged hospital course and has been under the care of the critical care service for GI bleeding. The patient underwent emergent IA embolization 05/19. s/p EGD 05/19 and again 05/20 with ischemia present. s/p emergent exploratory laparotomy. She is postop resection of fourth portion of duodenum with duodenal diverticulum and proximal jejunum due to GI bleed and ischemic necrosis. She had a gastrojejunostomy and closure of abdominal wall and placement of feeding jejunostomy. Upper GI bleed Acute hypoxic and hypercarbic respiratory failure-resolved s/p emergent ex lap with duodenal and jejunal resection, initially left in discontinuity with open abdomen 05/20 Now reconstructed with abdominal wall closure. Severe acute anemia secondary to blood loss requiring transfusion- persistent duodenal ulcer Type II NSTEMI secondary to demand ischemia from severe anemia s/p EGD 05/19, 05/20. s/p emergent IR embolization 05/19 severe acute thrombocytopenia - ITP improving acute protein calorie malnutrition- moderate to severe Fluid overload sepsis Pneumonia Staph aureus bacteremia Right hilar mass H/o Right lower lobectomy, and adenoca lung Probable ICU delirium ARMANDO Plan: - Extubated 05/31/2018 tolerating well. -Per ID recommendations, continue vancomycin for MSSA bacteremia for 4 weeks, until 06/29/17 - Blood cultures from 05/28 growing MSSA. Sputum culture Citrobacter and staph aureus - Pulmonary consult requested for right hilar mass on CT chest done on 05/29. Per Dr. Pack's note, daughter Nohemy Davis wants to hold off bronchoscopy. Once better patient can make the decision herself. Appreciate input from oncology. Plan would be for outpatient follow-up with PET scan and further workup based on the results. - Serial hemoglobin, transfuse to keep hgb > 7 - serially check platelets, transfuse to keep plt > 50k. Tapering solumedrol, platelets remain acceptable. - tube feeds per general surgery, through jejunostomy. NGT to suction. Gastrografin study completed; very slow gastric emptying. - Strict intake output, monitor and replete electrolytes, follow BUN and creatinine. - ICU electrolyte replacement protocol - Subcu heparin per Heme-onc. -Continue Protonix. Negative in fluid balance today. Continue to monitor. - Keller Dced. -Discontinued Ativan. Seroquel at night as needed for severe agitation. - NGT discontinued. - Continue to monitor nausea and vomiting. Antiemetics as tolerated -Renal functions improving. Continue normal saline at 100 cc/h -Follow-up labs in a.m. Overall impression: Slowly improving, extubated and breathing comfortably, remains weak. Monitor fluid status closely. Continue supportive nutrition through the feeding jejunostomy. Patient still having issues with nausea and vomiting. Once that is better controlled, she will need rehab. Progress Note: Quality VTE Deep Vein Thrombosis/Pulmonary Embolism Present on Admission: No _ (1) GI bleed Qualifiers: GI bleed type/associated pathology: Gastritis type:
[2018-06-15] MEDS: Pantoprazole Inj 40 MG Vial IV.PUSH SCH ×2 (10:50→21:23)
[2018-06-15] MEDS: fentaNYL Citrate Inj 100 MCG/2 ML Ampul IV.PUSH PRN ×2 (10:51→17:37)
--- NOTE | 2018-06-15 10:54 | P.PNGS ---
Subjective Interval history: Up to stretcher chair Episodes of vomiting last night but none this AM Physical Exam Vital signs: Vital Signs 06/14/18 11:00 06/14/18 11:12 06/14/18 11:22 Temperature Pulse Rate 86 84 Respiratory Rate Blood Pressure 125/56 L Pulse Oximetry 97 98 06/14/18 11:42 06/14/18 12:00 06/14/18 12:12 Temperature 97 F L Pulse Rate 86 93 H 83 Respiratory Rate Blood Pressure 112/56 L 122/58 L Pulse Oximetry 98 99 06/14/18 12:42 06/14/18 13:00 06/14/18 13:12 Temperature Pulse Rate 89 93 H 91 H Respiratory Rate Blood Pressure 126/72 159/63 H Pulse Oximetry 100 06/14/18 13:42 06/14/18 14:00 06/14/18 14:12 Temperature Pulse Rate 92 H 91 H 92 H Respiratory Rate Blood Pressure 136/65 152/65 H Pulse Oximetry 06/14/18 14:42 06/14/18 15:00 06/14/18 15:12 Temperature Pulse Rate 96 H 91 H 92 H Respiratory Rate Blood Pressure 178/73 H 167/68 H Pulse Oximetry 82 L 77 L 06/14/18 15:42 06/14/18 16:00 06/14/18 16:12 Temperature 97.8 F Pulse Rate 93 H 90 91 H Respiratory Rate Blood Pressure 148/63 H 158/68 H Pulse Oximetry 06/14/18 16:42 06/14/18 17:00 06/14/18 17:12 Temperature Pulse Rate 93 H 95 H 97 H Respiratory Rate Blood Pressure 162/67 H 162/66 H Pulse Oximetry 06/14/18 17:42 06/14/18 18:00 06/14/18 18:12 Temperature Pulse Rate 92 H 92 H 89 Respiratory Rate Blood Pressure 155/67 H 158/67 H Pulse Oximetry 91 L 06/14/18 18:28 06/14/18 18:42 06/14/18 19:00 Temperature Pulse Rate 91 H 89 90 Respiratory Rate Blood Pressure 129/59 L 150/65 H Pulse Oximetry 90 L 100 100 06/14/18 19:12 06/14/18 20:00 06/14/18 20:15 Temperature 97.7 F Pulse Rate 94 H 94 H 77 Respiratory Rate 22 Blood Pressure 156/67 H 104/51 L 104/51 L Pulse Oximetry 100 100 96 06/14/18 21:00 06/14/18 21:15 06/14/18 22:00 Temperature Pulse Rate 66 73 84 Respiratory Rate Blood Pressure 111/67 Pulse Oximetry 98 99 95 06/14/18 22:15 06/14/18 23:00 06/14/18 23:15 Temperature Pulse Rate 84 83 82 Respiratory Rate Blood Pressure 120/60 100/50 L 100/50 L Pulse Oximetry 97 99 98 06/15/18 00:00 06/15/18 00:15 06/15/18 01:00 Temperature 97.4 F L Pulse Rate 82 83 83 Respiratory Rate 20 Blood Pressure 110/58 L 110/58 L Pulse Oximetry 99 98 98 06/15/18 01:15 06/15/18 02:00 06/15/18 02:15 Temperature Pulse Rate 83 85 91 H Respiratory Rate Blood Pressure 116/57 L 145/65 H 145/65 H Pulse Oximetry 100 96 06/15/18 03:00 06/15/18 03:15 06/15/18 04:00 Temperature Pulse Rate 92 H 93 H 97 H Respiratory Rate Blood Pressure 144/64 H 138/63 Pulse Oximetry 99 97 100 06/15/18 04:15 06/15/18 05:00 06/15/18 05:15 Temperature Pulse Rate 91 H 90 91 H Respiratory Rate Blood Pressure 144/64 H 141/64 H Pulse Oximetry 97 99 99 06/15/18 06:00 06/15/18 07:00 06/15/18 07:15 Temperature Pulse Rate 96 H 97 H 93 H Respiratory Rate Blood Pressure 153/66 H Pulse Oximetry 85 L 92 L 74 L 06/15/18 08:00 06/15/18 08:15 06/15/18 09:00 Temperature 98.1 F Pulse Rate 95 H 93 H 67 Respiratory Rate Blood Pressure 158/67 H Pulse Oximetry 97 98 100 06/15/18 09:15 06/15/18 09:52 06/15/18 10:00 Temperature Pulse Rate 68 72 73 Respiratory Rate Blood Pressure 138/60 109/51 L Pulse Oximetry 100 100 99 Intake & Output 06/14/18 06/15/18 06/15/18 18:59 06:59 18:59 Intake Total 1412.5 / 1412.5 1969 / 1969 1000 / 1000 Output Total 1350 / 1350 700 / 700 Balance 62.5 / 62.5 1270 / 1270 1000 / 1000 Weight 70.7 kg Intake: IV 262.5 / 262.5 1000 / 1000 1000 / 1000 NS Inj 1,000 ML @ 100 mls/hr IV 1000 / 1000 1000 / 1000 .CONT .Q10H VALERY Rx#:[id number] Vancomycin Inj 1,250 MG In NS 262.5 / 262.5 Inj 250 ML @ 250 mls/hr IV.SIG ONCE ONE Rx#:[id number] Oral 120 / 120 Tube Feeding 630 / 630 450 / 450 Tube Irrigant 120 / 120 Water Bolus Amount 400 / 400 400 / 400 Output: Emesis 200 / 200 Urine Amount (Catheter) 1350 / 1350 500 / 500 Indwelling Urethral Catheter 1350 / 1350 500 / 500 Other: Date of Last Bowel Movement 06/14/18 06/15/18 06/14/18 # Bowel Movements 1 # Incontinent Bowel Movements 2 # Oral Regurgitations 1 Narrative: Alert and awake; pleasantly confused Abd: soft; mel removed; J tube in place - Urinary Catheter Management Indwelling Urethral Catheter Cath placed during this visit: yes, but has since been removed by the nurse Urethral indwelling: No Reason for continuing: Acute urinary retention Insertion date: 06/14/18 Insertion time: 18:00 Removal date: 06/10/18 Removal time: 12:10 Results - Labs 06/17/18 05:05 06/17/18 05:05 Laboratory Results - last 24 hr 06/15/18 06/15/18 06:21 06:21 WBC 7.0 RBC 2.69 L Hgb 8.1 L Hct 23.9 L MCV 88.6 MCH 30.1 MCHC 33.9 RDW 18.4 H Plt Count 85 L MPV 8.3 Sodium 136 Potassium 4.1 D Chloride 109 H Carbon Dioxide 16.2 L Anion Gap 11 BUN 81 H Creatinine 1.66 H Estimated GFR 30 L Random Glucose 89 Calcium 8.7 - Imaging Imaging: ITS Impressions GI Bleed Scan Nuclear Medicine 05/19/18 00:00 CONCLUSION: 1. 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 Patient was emergently brought to the interventional radiology department from the nuclear medicine department for angiography and intervention. Mesenteric Arteriogram 05/19/18 14:37 CONCLUSION: 1. 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 2. 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 PICC Line Insertion 05/20/18 00:00 CONCLUSION: 1. Uncomplicated central venous Power PICC line placement. 2. The PICC line can be used immediately. Abdomen X-Ray 05/28/18 05:23 CONCLUSION: No dilated bowel loops. Abdomen/Pelvis CT 05/29/18 00:00 CONCLUSION: 1. Since the prior CT, midline laparotomy with gastrojejunostomy has been performed. Anastomosis appears patent. There is a nasogastric tube which extends beyond the site of surgery and is in the first portion of the duodenum. Unchanged metallic structure near the ligament of Treitz, etiology uncertain. 2. A jejunostomy tube has also been placed without evidence of an acute complication. 3. Small, nonspecific free fluid in the pelvic cavity. No evidence of abscess. 4. No acute solid organ abnormality. Cysts of both kidneys and nonobstructing stones of the left kidney are again noted. 5. Sigmoid colon diverticulosis without diverticulitis. Chest CT 05/29/18 11:52 CONCLUSION: 1. 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 2. Pneumonia with volume loss in the right lower lobe. 3. Coronary artery calcification. 4. Emphysema. Gastrografin Study 06/02/18 00:00 CONCLUSION: 1. During the first 30 minutes there was only minimal passage of contrast into the gastrojejunostomy. 2. On the delayed 1 hour film there is apparent contrast noted in the more distal small bowel. Chest X-Ray 06/03/18 06:00 CONCLUSION: No acute cardiopulmonary disease identified. Assessment and Plan - Assessment (1) GI bleed Code(s): K92.2 - Gastrointestinal hemorrhage, unspecified Status: Acute Plan: 82 year old female s/p exploratory laparotomy, gastrojejunostomy, closure, j tube -NGT removed; still with episodes of vomiting -Replace NGT and place to LIWS if vomiting occurs again -Increase TF to goal -Continue aggressive PT/OT . - Attending Attestation I certify and attest that I personally examined the patient. INSTRUMENT WORKER documented our visit. INSTRUMENT WORKER entered orders under my supervision. Care plan reviewed with patient and nurse. EDUAR SANTIAGO MD FACS
[2018-06-15] MEDS: KCL 20 mEq/Dextrose 5% Inj 1,000 ML IV.CONT SCH (12:21)
[2018-06-15] MEDS: Scopalamine 1.5 MG Patch T-DERMAL SCH (14:35)
[2018-06-16] MEDS: fentaNYL Citrate Inj 100 MCG/2 ML Ampul IV.PUSH PRN ×6 (02:17→22:31)
[2018-06-16] MEDS: Sod Chloride 0.9% Inj 1,000 ML IV.CONT SCH ×2 (03:10→15:09)
[2018-06-16 05:54] LABS: Hematocrit 21.2 % (35.0-46.0); Mean Corpuscular Hemoglobin 29.5 pg (27.0-34.0); Mean Corpuscular Volume 89.3 fL (80.0-100.0); Mean Platelet Volume 8.4 fL (7.0-11.0); Platelet Count 68 th/mm3 (150-450); Red Blood Count 2.38 mil/mm3 (4.00-5.30); Red Cell Distribution Width 18.3 % (11.6-17.2); White Blood Count 4.7 th/mm3 (4.0-11.0)
[2018-06-16 06:23] LABS: Calcium 8.3 mg/dL (8.5-10.1); Carbon Dioxide 17.3 meq/L (21.0-32.0); Potassium 3.6 meq/L (3.5-5.1)
[2018-06-16 06:27] LABS: Vancomycin,Random 19.1 Comment
[2018-06-16] MEDS: KCL 20 mEq/Dextrose 5% Inj 1,000 ML IV.CONT SCH (09:12)
[2018-06-16] MEDS: Docusate Sodium Liq 100 MG/10 ML UDC PO SCH ×2 (09:33→20:06)
[2018-06-16] MEDS: Artificial Tears Opth Oint 3.5 GM Tube EACH EYE SCH ×2 (09:43→20:06)
[2018-06-16] MEDS: Metoprolol Tartrate 25 MG Tablet PO SCH ×2 (09:43→20:06)
[2018-06-16] MEDS: Lisinopril 5 MG Tablet PO SCH (09:43)
[2018-06-16] MEDS: Heparin Central Flush 100 UNIT/ML 5 ML Vial IV.FLUSH SCH (09:43)
[2018-06-16] MEDS: amLODIPine 5 MG Tablet J-TUBE SCH (09:43)
[2018-06-16] MEDS: Lidocaine 5% Patch T-DERMAL SCH (09:43)
[2018-06-16] MEDS: Pantoprazole Inj 40 MG Vial IV.PUSH SCH ×2 (09:44→22:30)
[2018-06-16] MEDS: Vancomycin Inj 1,250 MG in Sodium Chlor 0.9% Inj 250 ML IV.SIG SCH (09:44)
[2018-06-16] MEDS: Sennosides Liq 8.8 MG/5 ML UDC PO SCH ×2 (09:44→20:06)
[2018-06-16] MEDS ORDERED: Sodium Chlor 0.9% Inj 250 ML IV.SIG SCH (10:00)
--- NOTE | 2018-06-16 12:35 | P.PNIM ---
Subjective Interval history: Patient reports she is feeling okay today. Hemoglobin down to 7.0. No evidence of active bleeding. Renal functions improving. Mild tachycardia. No nausea or vomiting today. Physical Exam Vital signs: Last Vital Signs Temp 97.9 F 06/16/18 04:00 Pulse 83 06/16/18 11:00 Resp 20 06/16/18 02:47 BP 117/55 L 06/16/18 10:44 Pulse Ox 99 06/16/18 11:00 Intake & Output 06/14/18 06/15/18 06/16/18 06/17/18 06:59 06:59 06:59 06:59 Intake Total 3165 / 3165 3382.5 / 3382.5 4644 / 4644 Output Total 1150 / 1150 2049 / 2049 3575 / 3575 Balance 2014 1332.5 / 1332.5 1069 / 1069 Weight 68.7 kg 70.7 kg 70.7 kg Narrative: GENERAL: Elderly female. Pleasantly confused at times. CARDIOVASCULAR: Normal rate and regular rhythm without murmurs, gallops, or rubs. RESPIRATORY: Good respiratory efforts. Breath sounds equal and clear to auscultation bilaterally. GASTROINTESTINAL: Abdomen soft, appropriately tender to palpation. J feeding tube in place. Midline incision site looks clean and dry. MUSCULOSKELETAL: Extremities without cyanosis, or edema. PSYCH: Calm Urinary Catheter Management Indwelling Urethral Catheter: Cath placed during this visit: yes, but has since been removed by the nurse Urethral indwelling: No Insertion date: 06/14/18 Insertion time: 18:00 Removal date: 06/10/18 Removal time: 12:10 Results Labs CBC & Chem 7: 06/16/18 04:30 06/16/18 04:30 Labs: Microbiology 06/14/18 18:05 Catheterized Urine Urine Culture - Final No growth in 48 hours Assessment and Plan (1) GI bleed: Code(s): K92.2 - Gastrointestinal hemorrhage, unspecified Status: Acute Plan 82-year-old female with a history significant for amyloidosis with prolonged hospital course and has been under the care of the critical care service for GI bleeding. The patient underwent emergent IA embolization 05/19. s/p EGD 05/19 and again 05/20 with ischemia present. s/p emergent exploratory laparotomy. She is postop resection of fourth portion of duodenum with duodenal diverticulum and proximal jejunum due to GI bleed and ischemic necrosis. She had a gastrojejunostomy and closure of abdominal wall and placement of feeding jejunostomy. Upper GI bleed Acute hypoxic and hypercarbic respiratory failure-resolved s/p emergent ex lap with duodenal and jejunal resection, initially left in discontinuity with open abdomen 05/20 Now reconstructed with abdominal wall closure. Severe acute anemia secondary to blood loss requiring transfusion- persistent duodenal ulcer. Postop as above. Type II NSTEMI secondary to demand ischemia from severe anemia s/p EGD 05/19, 05/20. s/p emergent IR embolization 05/19 severe acute thrombocytopenia - ITP improving acute protein calorie malnutrition- moderate to severe Fluid overload sepsis Pneumonia Staph aureus bacteremia Right hilar mass H/o Right lower lobectomy, and adenocarcinoma of the lung Probable ICU delirium vs early dementia ARMANDO Plan: - Extubated 05/31/2018 tolerating well. -Per ID recommendations, continue vancomycin for MSSA bacteremia for 4 weeks, until 06/29/17 - Blood cultures from 05/28 growing MSSA. Sputum culture Citrobacter and staph aureus - Pulmonary consult requested for right hilar mass on CT chest done on 05/29. Per Dr. Pack's note, daughter Nohemy Davis wants to hold off bronchoscopy. Once better patient can make the decision herself. Appreciate input from oncology. Plan would be for outpatient follow-up with PET scan and further workup based on the results. - serially check platelets, transfuse to keep plt > 50k. - tube feeds per general surgery, through jejunostomy. Gastrografin study completed; very slow gastric emptying. - Strict intake output, monitor and replete electrolytes, follow BUN and creatinine. - ICU electrolyte replacement protocol - Continue Protonix. - Seroquel at night as needed for severe agitation. - NGT discontinued. - Continue to monitor nausea and vomiting. Antiemetics as tolerated -Renal functions improving. Continue normal saline at 100 cc/h -H&H trended down but she has no signs of bleeding. Given multiple comorbidities above, will transfuse 2 units of PRBC. -Follow-up labs in a.m. Overall impression: Slowly improving, extubated and breathing comfortably, remains weak. Monitor fluid status and renal functions closely. Continue supportive nutrition through the feeding jejunostomy. GI tract has been slow to recover. She has been having issues with nausea and vomiting. Finally improving today. She will receive blood transfusion today for anemia. Continue to monitor progress. Will need rehab. [facility] is following. Progress Note: Quality VTE Deep Vein Thrombosis/Pulmonary Embolism Present on Admission: No _ (1) GI bleed Qualifiers: GI bleed type/associated pathology: Gastritis type:
[2018-06-17] MEDS: Sod Chloride 0.9% Inj 1,000 ML IV.CONT SCH ×3 (02:28→20:06)
[2018-06-17] MEDS: KCL 20 mEq/Dextrose 5% Inj 1,000 ML IV.CONT SCH (04:36)
[2018-06-17 06:37] LABS: Hematocrit 24.7 % (35.0-46.0); Hemoglobin 8.6 gm/dL (11.6-15.3); Mean Corpuscular HGB Conc 34.9 % (32.0-36.0); Mean Corpuscular Hemoglobin 30.2 pg (27.0-34.0); Mean Corpuscular Volume 86.6 fL (80.0-100.0); Mean Platelet Volume 8.7 fL (7.0-11.0); Platelet Count 75 th/mm3 (150-450); Red Blood Count 2.86 mil/mm3 (4.00-5.30); Red Cell Distribution Width 17.5 % (11.6-17.2); White Blood Count 5.2 th/mm3 (4.0-11.0)
[2018-06-17 06:57] LABS: Calcium 8.5 mg/dL (8.5-10.1); Carbon Dioxide 20.5 meq/L (21.0-32.0)
--- NOTE | 2018-06-17 08:28 | P.PNONC ---
Subjective Interval history: Cognition continues to improve. In speaking with the nursing staff there has been no bleeding although the hemoglobin did fall and she required a transfusion. Objective Vital Signs/Intake & Output: Vital Signs 06/16/18 08:44 06/16/18 09:00 06/16/18 09:44 Temperature Pulse Rate 103 H 103 H 100 H Respiratory Rate Blood Pressure 138/100 H 129/59 L Pulse Oximetry 99 98 97 06/16/18 10:00 06/16/18 10:44 06/16/18 11:00 Temperature Pulse Rate 97 H 77 83 Respiratory Rate Blood Pressure 117/55 L Pulse Oximetry 99 99 99 06/16/18 11:44 06/16/18 12:00 06/16/18 12:44 Temperature 98.1 F Pulse Rate 82 84 89 Respiratory Rate Blood Pressure 121/60 128/60 Pulse Oximetry 99 95 100 06/16/18 13:00 06/16/18 13:44 06/16/18 14:00 Temperature Pulse Rate 90 87 94 H Respiratory Rate Blood Pressure 125/65 Pulse Oximetry 98 100 97 06/16/18 14:44 06/16/18 15:00 06/16/18 15:44 Temperature Pulse Rate 95 H 93 H 92 H Respiratory Rate Blood Pressure 117/62 105/80 Pulse Oximetry 100 100 06/16/18 16:00 06/16/18 16:44 06/16/18 17:00 Temperature Pulse Rate 93 H 96 H 95 H Respiratory Rate Blood Pressure 121/58 L Pulse Oximetry 100 100 100 06/16/18 18:00 06/16/18 19:00 06/16/18 20:00 Temperature 98.3 F 98.1 F Pulse Rate 93 H 96 H 104 H Respiratory Rate Blood Pressure 143/63 H Pulse Oximetry 100 100 100 06/16/18 21:00 06/16/18 21:47 06/16/18 22:00 Temperature Pulse Rate 83 93 H 91 H Respiratory Rate Blood Pressure 127/58 L 133/60 Pulse Oximetry 98 96 99 06/16/18 22:02 06/16/18 23:00 06/16/18 23:03 Temperature Pulse Rate 87 98 H Respiratory Rate 18 Blood Pressure 105/57 L Pulse Oximetry 100 06/16/18 23:13 06/17/18 00:00 06/17/18 00:05 Temperature 97.8 F Pulse Rate 95 H 97 H 90 Respiratory Rate Blood Pressure 98/51 L Pulse Oximetry 98 95 06/17/18 00:24 06/17/18 01:00 06/17/18 01:13 Temperature Pulse Rate 97 H 99 H 104 H Respiratory Rate Blood Pressure 123/60 101/50 L Pulse Oximetry 97 100 95 06/17/18 02:00 06/17/18 02:13 06/17/18 02:17 Temperature Pulse Rate 101 H 103 H 99 H Respiratory Rate Blood Pressure 134/63 Pulse Oximetry 100 06/17/18 03:00 06/17/18 03:13 06/17/18 04:00 Temperature 98.1 F Pulse Rate 103 H 105 H 107 H Respiratory Rate Blood Pressure 123/57 L Pulse Oximetry 100 06/17/18 04:10 06/17/18 04:13 06/17/18 05:00 Temperature Pulse Rate 94 H 100 H 102 H Respiratory Rate Blood Pressure 124/59 L Pulse Oximetry 100 99 06/17/18 05:13 06/17/18 06:00 06/17/18 06:13 Temperature Pulse Rate 100 H 100 H 101 H Respiratory Rate Blood Pressure 134/60 125/58 L Pulse Oximetry 100 99 99 Intake & Output 06/16/18 06/17/18 06/17/18 18:59 06:59 18:59 Intake Total 2151 / 2151 1149.5 / 1149.5 Output Total 2500 / 2500 1500 / 1500 Balance -349 / -349 -350.5 / -350.5 Weight 71.5 kg Intake: IV 1000 / 1000 512.5 / 512.5 NS Inj 1,000 ML @ 100 mls/hr IV 1000 / 1000 250 / 250 .CONT .Q10H [facility] Rx#:[id number] Vancomycin Inj 1,250 MG In NS 262.5 / 262.5 Inj 250 ML @ 250 mls/hr IV.SIG Q24H [facility] Rx#:[id number] Oral 180 / 180 Tube Feeding 571 / 571 537 / 537 Tube Irrigant 400 / 400 100 / 100 Output: Urine Amount (Catheter) 2500 / 2500 1500 / 1500 Indwelling Urethral Catheter 2500 / 2500 1500 / 1500 Other: Date of Last Bowel Movement 06/16/18 06/16/18 # Bowel Movements 1 Result Diagrams: 06/17/18 05:05 06/17/18 05:05 Laboratory Results: Laboratory Results - last 24 hr 06/16/18 06/17/18 06/17/18 10:57 05:05 05:05 WBC 5.2 RBC 2.86 L Hgb 8.6 L Hct 24.7 L MCV 86.6 MCH 30.2 MCHC 34.9 RDW 17.5 H Plt Count 75 L MPV 8.7 Sodium 140 Potassium 3.0 L Chloride 109 H Carbon Dioxide 20.5 L Anion Gap 11 BUN 50 H Creatinine 1.04 H Estimated GFR 51 L Random Glucose 91 Calcium 8.5 Blood Type O Positive Blood Type Recheck Not needed Antibody Screen Negative MTS Gel Crossmatch See Detail Culture Results: Microbiology 06/14/18 18:05 Urine Culture - Final Catheterized Urine No growth in 48 hours Medications: Active Medications Generic Name Dose Route Start Last Admin Trade Name Freq PRN Reason Stop Dose Admin Acetaminophen 650 mg 05/17/18 06:10 06/14/18 19:40 Tylenol PO 650 mg Q4H PRN Administration Temp > 100.4 Albuterol 2.5 mg 05/21/18 23:28 05/28/18 08:20 Albuterol Neb (Prn) NEB 2.5 mg Q2HR NEB PRN Administration WHEEZING Amlodipine Besylate 5 mg 05/26/18 10:00 06/16/18 09:43 Norvasc J-TUBE 5 mg DAILY [facility] Administration Artificial Tears 1 applicatio 05/22/18 21:00 06/16/18 20:06 Lacrilube Opth Oint EACH EYE 1 applicatio BID VAELRY Administration Clonidine HCl 0.1 mg 05/26/18 11:24 05/26/18 23:31 Catapres PO 0.1 mg Q6H PRN Administration SBP>160, DBP>90 Docusate Sodium 50 mg 06/06/18 09:00 06/16/18 20:06 Colace Liq PO 50 mg BID [facility] Administration Enoxaparin Sodium 40 mg 06/05/18 10:00 06/15/18 08:13 Lovenox Inj SQ Not Given DAILY [facility] Fentanyl Citrate 25 mcg 06/01/18 08:40 06/16/18 22:31 Fentanyl Inj IV.PUSH 25 mcg Q1H PRN Administration Any pain Heparin Sodium (Porcine) 0 unit 05/21/18 09:00 06/16/18 09:43 Heparin Central Flush IV.FLUSH Not Given DAILY [facility]ERY Heparin Sodium (Porcine) 0 unit 05/20/18 16:43 06/09/18 09:07 Heparin Central Flush IV.FLUSH 400 unit PRN PRN Administration Flush PICC Line Hydralazine HCl 10 mg 05/23/18 00:24 05/28/18 16:12 Apresoline Inj IV.PUSH 10 mg Q1H PRN Administration Sbp>165, Dbp>90 Magnesium Sulfate 2 gm/ Sodium 100 mls @ 50 mls/hr 05/22/18 22:43 05/30/18 08 :00 Chloride IV.SIG Infused UNSCH PRN Infusion For Magnesium 1.2 - 1.6 mg/dL Potassium Chloride 40 meq in 100 mls @ 25 mls/hr 05/22/18 22:43 05/30/18 08: 00 Kcl 40 Meq Premix Inj IV.SIG Infused Q2H PRN Infusion For Potassium 2.8 - 3.2 mEq/L Potassium Chloride 20 meq in 100 mls @ 50 mls/hr 05/22/18 22:43 06/04/18 17: 12 Kcl 20 Meq Premix Inj IV.SIG Infused Q2H PRN Infusion For Potassium 3.3 - 3.5 mEq/L Potassium Chloride 40 meq in 100 mls @ 25 mls/hr 05/22/18 22:43 05/30/18 08: 00 Kcl 40 Meq Premix Inj IV.SIG Infused UNSCH PRN Infusion For Potassium 3.3 - 3.5 mEq/L Potassium Phosphate 30 mmol/ 260 mls @ 42 mls/hr 05/22/18 22:43 05/23/18 12: 57 Sodium Chloride IV.SIG Infused UNSCH PRN Infusion SEE LABEL COMMENTS Potassium Chloride/Dextrose 1,000 mls @ 50 mls/hr 06/06/18 08:45 06/17/18 04: 36 D5w + Kcl 20 Meq Inj IV.CONT Not Given .Q20H [facility] Sodium Chloride 1,000 mls @ 100 mls/hr 06/14/18 11:28 06/17/18 02:28 Ns Inj IV.CONT Not Given .Q10H [facility] Vancomycin HCl 1,250 mg/ 262.5 mls @ 250 mls/hr 06/16/18 10:00 06/16/18 19:00 Sodium Chloride IV.SIG Infused Q24H [facility] Infusion Labetalol HCl 20 mg 05/26/18 07:44 05/27/18 03:30 Trandate Inj IV.PUSH 20 mg Q2H PRN Administration KEEP SBP<160 Lidocaine HCl 1 patch 06/08/18 14:00 06/16/18 09:43 Lidoderm 5% Patch.12 Hr T-DERMAL 1 patch DAILY [facility] Administration Lisinopril 5 mg 06/06/18 09:00 06/16/18 09:43 Prinivil PO 5 mg DAILY [facility] Administration Metoprolol Tartrate 25 mg 06/06/18 09:00 06/16/18 20:06 Lopressor PO 25 mg BID VALERY Administration Ondansetron HCl 4 mg 05/17/18 06:10 06/16/18 22:31 Zofran Inj IV.PUSH 4 mg Q6H PRN Administration NAUSEA OR VOMITING Pantoprazole Sodium 40 mg 06/09/18 10:00 06/16/18 22:30 Protonix Inj IV.PUSH 40 mg Q12H [facility] Administration Patch Removal 1 each 06/08/18 21:00 06/16/18 20:06 Remove Old Patch T-DERMAL 1 each HS [facility]ERY Administration Patch Removal 1 each 06/12/18 15:00 06/15/18 14:36 Remove Old Patch T-DERMAL 1 each Q3D [facility] Administration Potassium Bicarb/Potassium Chloride 50 meq 05/22/18 22:43 06/03/18 05:53 K-Lyte Cl Eff PO 50 meq UNSCH PRN Administration For Potassium 3.3 - 3.5 mEq/L Prochlorperazine Edisylate 10 mg 05/17/18 09:06 06/16/18 03:20 Compazine Inj IV.PUSH 10 mg Q6H PRN Administration NAUSEA Quetiapine Fumarate 25 mg 06/12/18 11:41 06/13/18 23:45 Seroquel PO 25 mg HS PRN Administration AGITATION AND/OR HALLUCINATION Scopolamine 1 patch 06/09/18 15:00 06/15/18 14:35 Transderm-Scop 1.5 Mg Patch.72hr T-DERMAL 1 patch Q3D [facility] Administration Sennosides 8.8 mg 06/06/18 09:00 06/16/18 20:06 Senna Liq PO 8.8 mg BID [facility]ERY Administration Sodium Chloride 0 ml 05/21/18 09:00 06/16/18 09:44 Ns Flush IV.FLUSH Not Given DAILY [facility] Sodium Chloride 0 ml 05/20/18 16:43 05/26/18 01:39 Ns Flush IV.FLUSH 2 ml PRN PRN Administration FLUSH AFTER USING IV ACCESS Sterile Water 200 ml 06/12/18 12:00 06/17/18 05:29 Free Water G-TUBE 200 ml Q6HR [facility] Administration Objective Remarks: GENERAL: Comfortable more alert and appropriate SKIN: Warm and dry. HEAD: Normocephalic. EYES: No scleral icterus. No injection or drainage. NECK: Supple, trachea midline. No JVD or lymphadenopathy. LYMPHATIC: No adenopathy. CARDIOVASCULAR: Regular rate and rhythm without murmurs. RESPIRATORY: Breath sounds equal bilaterally. No accessory muscle use. GASTROINTESTINAL: Mild tenderness left lower abdominal area EXTREMITIES: Trace edema MUSCULOSKELETAL: Poor muscle tone NEUROLOGICAL: No obvious focal deficit. Awake, alert, and oriented x3. Assessment/Plan - Plan Ms. 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 Patient responded to steroids. Plan: 1. Since stopping the steroids there has been a fall in the platelet count. Her platelet numbers are adequate and at this point I would not resume any treatment for her thrombocytopenia. If she were to develop again clinically meaningful thrombocytopenia I would rechallenge her with steroids or possibly IV Ig. Would continue Lovenox at the current dose of 40 mg daily. 2: The hilar adenopathy/mass can be evaluated in the future. It certainly has the appearance of what one would see with a lung cancer but at the same time it is unexpected as it was not there months ago and her original lung cancer was only a small focus of invasive lung cancer which was an incidental finding at the time of surgery.
[2018-06-17] MEDS: Heparin Central Flush 100 UNIT/ML 5 ML Vial IV.FLUSH SCH (08:34)
[2018-06-17] MEDS: Pantoprazole Inj 40 MG Vial IV.PUSH SCH ×2 (09:13→22:18)
[2018-06-17] MEDS: Artificial Tears Opth Oint 3.5 GM Tube EACH EYE SCH ×2 (09:13→21:29)
[2018-06-17] MEDS: Vancomycin Inj 1,250 MG in Sodium Chlor 0.9% Inj 250 ML IV.SIG SCH (09:13)
[2018-06-17] MEDS: Docusate Sodium Liq 100 MG/10 ML UDC PO SCH ×2 (09:13→20:05)
[2018-06-17] MEDS: Metoprolol Tartrate 25 MG Tablet PO SCH ×2 (09:14→20:06)
[2018-06-17] MEDS: Lisinopril 5 MG Tablet PO SCH (09:14)
[2018-06-17] MEDS: Sennosides Liq 8.8 MG/5 ML UDC PO SCH ×2 (09:14→20:09)
[2018-06-17] MEDS: amLODIPine 5 MG Tablet J-TUBE SCH (09:14)
[2018-06-17] MEDS: Lidocaine 5% Patch T-DERMAL SCH (09:15)
--- NOTE | 2018-06-17 11:03 | P.PNGS ---
Subjective Interval history: Up to the stretcher chair Remains pleasant confused Physical Exam Vital signs: Vital Signs 06/16/18 11:00 06/16/18 11:44 06/16/18 12:00 Temperature 98.1 F Pulse Rate 83 82 84 Respiratory Rate Blood Pressure 121/60 Pulse Oximetry 99 99 95 06/16/18 12:44 06/16/18 13:00 06/16/18 13:44 Temperature Pulse Rate 89 90 87 Respiratory Rate Blood Pressure 128/60 125/65 Pulse Oximetry 100 98 100 06/16/18 14:00 06/16/18 14:44 06/16/18 15:00 Temperature Pulse Rate 94 H 95 H 93 H Respiratory Rate Blood Pressure 117/62 Pulse Oximetry 97 100 06/16/18 15:44 06/16/18 16:00 06/16/18 16:44 Temperature Pulse Rate 92 H 93 H 96 H Respiratory Rate Blood Pressure 105/80 121/58 L Pulse Oximetry 100 100 100 06/16/18 17:00 06/16/18 18:00 06/16/18 19:00 Temperature 98.3 F Pulse Rate 95 H 93 H 96 H Respiratory Rate Blood Pressure Pulse Oximetry 100 100 100 06/16/18 20:00 06/16/18 21:00 06/16/18 21:47 Temperature 98.1 F Pulse Rate 104 H 83 93 H Respiratory Rate Blood Pressure 143/63 H 127/58 L 133/60 Pulse Oximetry 100 98 96 06/16/18 22:00 06/16/18 22:02 06/16/18 23:00 Temperature Pulse Rate 91 H 87 98 H Respiratory Rate Blood Pressure 105/57 L Pulse Oximetry 99 100 06/16/18 23:03 06/16/18 23:13 06/17/18 00:00 Temperature 97.8 F Pulse Rate 95 H 97 H Respiratory Rate 18 Blood Pressure 98/51 L Pulse Oximetry 98 95 06/17/18 00:05 06/17/18 00:24 06/17/18 01:00 Temperature Pulse Rate 90 97 H 99 H Respiratory Rate Blood Pressure 123/60 Pulse Oximetry 97 100 06/17/18 01:13 06/17/18 02:00 06/17/18 02:13 Temperature Pulse Rate 104 H 101 H 103 H Respiratory Rate Blood Pressure 101/50 L 134/63 Pulse Oximetry 95 100 06/17/18 02:17 06/17/18 03:00 06/17/18 03:13 Temperature Pulse Rate 99 H 103 H 105 H Respiratory Rate Blood Pressure 123/57 L Pulse Oximetry 06/17/18 04:00 06/17/18 04:10 06/17/18 04:13 Temperature 98.1 F Pulse Rate 107 H 94 H 100 H Respiratory Rate Blood Pressure 124/59 L Pulse Oximetry 100 100 06/17/18 05:00 06/17/18 05:13 06/17/18 06:00 Temperature Pulse Rate 102 H 100 H 100 H Respiratory Rate Blood Pressure 134/60 Pulse Oximetry 99 100 99 06/17/18 06:13 06/17/18 07:00 06/17/18 07:52 Temperature Pulse Rate 101 H 103 H 103 H Respiratory Rate Blood Pressure 125/58 L 114/57 L Pulse Oximetry 99 99 100 06/17/18 08:00 06/17/18 08:13 Temperature 98.4 F Pulse Rate 104 H 102 H Respiratory Rate Blood Pressure 114/56 L Pulse Oximetry 99 100 Intake & Output 06/16/18 06/17/18 06/17/18 18:59 06:59 18:59 Intake Total 2151 / 2151 1149.5 / 1149.5 Output Total 2500 / 2500 1500 / 1500 Balance -349 / -349 -350.5 / -350.5 Weight 71.5 kg Intake: IV 1000 / 1000 512.5 / 512.5 NS Inj 1,000 ML @ 100 mls/hr IV 1000 / 1000 250 / 250 .CONT .Q10H [facility] Rx#:[id number] Vancomycin Inj 1,250 MG In NS 262.5 / 262.5 Inj 250 ML @ 250 mls/hr IV.SIG Q24H [facility] Rx#:[id number] Oral 180 / 180 Tube Feeding 571 / 571 537 / 537 Tube Irrigant 400 / 400 100 / 100 Output: Urine Amount (Catheter) 2500 / 2500 1500 / 1500 Indwelling Urethral Catheter 2500 / 2500 1500 / 1500 Other: Date of Last Bowel Movement 06/16/18 06/16/18 06/16/18 # Bowel Movements 1 Narrative: Alert and awake; pleasant confused Abd: soft; midline incision ---healed; j tube with TF - Urinary Catheter Management Indwelling Urethral Catheter Cath placed during this visit: yes, but has since been removed by the nurse Urethral indwelling: No Reason for continuing: Acute urinary retention Insertion date: 06/14/18 Insertion time: 18:00 Removal date: 06/10/18 Removal time: 12:10 Results - Labs 06/17/18 05:05 06/17/18 05:05 Laboratory Results - last 24 hr 06/16/18 06/17/18 06/17/18 10:57 05:05 05:05 WBC 5.2 RBC 2.86 L Hgb 8.6 L Hct 24.7 L MCV 86.6 MCH 30.2 MCHC 34.9 RDW 17.5 H Plt Count 75 L MPV 8.7 Sodium 140 Potassium 3.0 L Chloride 109 H Carbon Dioxide 20.5 L Anion Gap 11 BUN 50 H Creatinine 1.04 H Estimated GFR 51 L Random Glucose 91 Calcium 8.5 Blood Type O Positive Blood Type Recheck Not needed Antibody Screen Negative MTS Gel Crossmatch See Detail - Imaging Imaging: ITS Impressions GI Bleed Scan Nuclear Medicine 05/19/18 00:00 CONCLUSION: 1. 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 Patient was emergently brought to the interventional radiology department from the nuclear medicine department for angiography and intervention. Mesenteric Arteriogram 05/19/18 14:37 CONCLUSION: 1. 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 2. 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 PICC Line Insertion 05/20/18 00:00 CONCLUSION: 1. Uncomplicated central venous Power PICC line placement. 2. The PICC line can be used immediately. Abdomen X-Ray 05/28/18 05:23 CONCLUSION: No dilated bowel loops. Abdomen/Pelvis CT 05/29/18 00:00 CONCLUSION: 1. Since the prior CT, midline laparotomy with gastrojejunostomy has been performed. Anastomosis appears patent. There is a nasogastric tube which extends beyond the site of surgery and is in the first portion of the duodenum. Unchanged metallic structure near the ligament of Treitz, etiology uncertain. 2. A jejunostomy tube has also been placed without evidence of an acute complication. 3. Small, nonspecific free fluid in the pelvic cavity. No evidence of abscess. 4. No acute solid organ abnormality. Cysts of both kidneys and nonobstructing stones of the left kidney are again noted. 5. Sigmoid colon diverticulosis without diverticulitis. Chest CT 05/29/18 11:52 CONCLUSION: 1. 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 2. Pneumonia with volume loss in the right lower lobe. 3. Coronary artery calcification. 4. Emphysema. Gastrografin Study 06/02/18 00:00 CONCLUSION: 1. During the first 30 minutes there was only minimal passage of contrast into the gastrojejunostomy. 2. On the delayed 1 hour film there is apparent contrast noted in the more distal small bowel. Chest X-Ray 06/03/18 06:00 CONCLUSION: No acute cardiopulmonary disease identified. Assessment and Plan - Assessment (1) GI bleed Code(s): K92.2 - Gastrointestinal hemorrhage, unspecified Status: Acute Plan: 82 year old female s/p exploratory laparotomy, gastrojejunostomy, closure, j tube -S/p transfusion of 1 unit PRBCs for Hmg 7.0; today 8.6 -NGT removed; still with episodes of vomiting -Replace NGT and place to [facility] if vomiting occurs again -Tolerating TF at goal -Continue aggressive PT/OT -Discussed with Tarsha from [facility] --- they will take patient with NGT if needed. -GS clear for DC to [facility] today ----informed Tarsha--she will touch base with Medicine team -[facility] - Plan I personally evaluated the patient room 1309. Patient remains pleasantly confused. She told me a very detailed story about her trip to a baseball game last night with Erick, who apparently was her nurse last night. She said he was very courteous to her and treated her nicely. I tried to reorient her and let her know what was happening and she admitted she has a hard time understanding the whole hospital thing. Her abdomen is soft and nondistended and nontender. Her incisions well approximated. Her jejunostomy feeding tube remains in place and there is no erythema or drainage around the tube. She has normal bowel sounds. She did have emesis this morning of a small of dark fluid. She was examined in the presence of her bedside nurse. Plans are being made for her to transition [facility] tomorrow. I spoke on the telephone with her daughter Raciel Conley and discussed her concern regarding her mental status. I assured her many 82-year-old people who have been in the [facility] for a month and went through the surgeries and the illnesses that are would be disoriented at this point. Unless there is an underlying dementia that is been exacerbated and hastened by a hospital stay she will likely return to her previous mental state of health. The exam, history, and the medical decision-making described in the above note were completed with the assistance of the mid-level provider. I reviewed and agree with the findings presented. I attest that I had a [id number] encounter with the patient on the same day, and personally performed and documented my assessment and findings in the medical record.
[2018-06-17] MEDS: fentaNYL Citrate Inj 100 MCG/2 ML Ampul IV.PUSH PRN (11:55)
--- NOTE | 2018-06-17 12:52 | P.DIET ---
Nutritional Evaluation Type of nutrition evaluation: follow-up Nutrition consult regarding: Tube Feeding Objective - Diagnosis GI Bleed - Objective % IBW: 136 (IBW = 125#) Body Weight Used for Calculations: IBW (56.8kg) Energy Needs - Lower Range (kCal/kg): 25 Energy Needs - Upper Range (kCal/kg): 30 Lower Limit kCal/kg (kCals): 1,420 Upper Limit kCal/kg (kCals): 1,704 Lower Limit Protein Factor (Grams per Kg): 1.2 Upper Limit Protein Factor (Grams per Kg): 1.6 Lower Protein Needs (Protein): 68 Upper Protein Needs (Protein): 91 Dietitian Reviewed in Medical Record: Current diet, Curent medications, Intake & Output, Labs, Medical history, Tube feeding Diet Order: NPO Objective Comments: Current clinical course per MD: amyloidosis and active GI bleed. s/p emergent IA embolization 05/19. s/p EGD 05/19 and again 05/20 with ischemia present. s/p emergent exploratory laparotomy with duodenal and jejunal resection, initially left in discontinuity with open abdomen, and now reconstructed with abdominal wall closure. 05/23 GJ tube placement Assessment Assessment: Pt at high nutritional risk r/t the need for a TF. Pt extubated (05/31) and ng-t may need to be replaced d/t N/V. Pt is currently receiving Vital High Protein @ 55 mls/hr which provides 1320 kcals, 116 gms protein and 62232 mls of free water. Labs, wts and clinical course reviewed. Recommendations: Increase Vital High Protein to 60 mls/hr Dietitian to Monitor: Lab values, Intake & Output, Tube feeding tolerance, Weight change, Medical course
--- NOTE | 2018-06-17 14:12 | P.DS ---
Date of admission: 05/17/18 06:05 Primary care physician: UNKNOWN Brief History from admission: Mrs. Perea is an 82-year-old female. She has a past history of GI bleeding and also a recent history of persistent abdominal pain and gastric distention symptoms. She comes in the hospital secondary to hyperemesis with hematemesis and melena. Acute blood loss anemia is present on lab testing and she shows a downward trend at interval testing. Patient was admitted to the CC unit for GI bleeding and underwent emergent IA embolization and exploratory laparotomy. DS: Summary Hospital Course: Upper GI bleed Acute hypoxic and hypercarbic respiratory failure-resolved s/p emergent ex lap with duodenal and jejunal resection, initially left in discontinuity with open abdomen 05/20 Now reconstructed with abdominal wall closure. Severe acute anemia secondary to blood loss requiring transfusion- persistent duodenal ulcer. Postop as above. Type II NSTEMI secondary to demand ischemia from severe anemia s/p EGD 05/19, 05/20. s/p emergent IR embolization 05/19 severe acute thrombocytopenia - ITP improving acute protein calorie malnutrition- moderate to severe Fluid overload sepsis Pneumonia Staph aureus bacteremia Right hilar mass H/o Right lower lobectomy, and adenocarcinoma of the lung Probable ICU delirium vs early dementia ARMANDO 82-year-old female with a history significant for amyloidosis with prolonged hospital course and has been under the care of the critical care service for GI bleeding. The patient underwent emergent IA embolization 05/19. s/p EGD 05/19 and again 05/20 with ischemia present. s/p emergent exploratory laparotomy. She is postop resection of fourth portion of duodenum with duodenal diverticulum and proximal jejunum due to GI bleed and ischemic necrosis. She had a gastrojejunostomy and closure of abdominal wall and placement of feeding jejunostomy. The surgery team is following the patient and have cleared her to go back to [facility] for continued rehab. She was given a unit of PRBCs yesterday and her Hgb today is up to 8.6 from 7.0 Blood cultures from 05/28 grew MSSA, repeat blood cxs are negative. Continue IV antibiotics for a total of 4 wks until 06/29/17 CT chest shows a right hilar mass from 05/29/18. Patient was evaluated by Dr. Pack and the pts daughter Nohemy Davis wants to hold off on bronchoscopy for now and will decide on it at a later day. Patient will need to be re evaluated by Pulmonary and Oncology when they are ready to decide on the bronchoscopy. NGT has been discontinued, Continue feeds through the j tube. Continue to monitor electrolytes and Hgb, Plt. Keep PLT above 50,000. Continue Protonix. - Time Spent with Patient Total time spent providing and/or coordinating discharge services: Greater than 30 minutes - Quality: VTE Deep Vein Thrombosis/Pulmonary Embolism Present on Admission: No Exam Vital signs: Vital Signs 06/16/18 14:00 06/16/18 14:44 06/16/18 15:00 Temperature Pulse Rate 94 H 95 H 93 H Respiratory Rate Blood Pressure 117/62 Pulse Oximetry 97 100 06/16/18 15:44 06/16/18 16:00 06/16/18 16:44 Temperature Pulse Rate 92 H 93 H 96 H Respiratory Rate Blood Pressure 105/80 121/58 L Pulse Oximetry 100 100 100 06/16/18 17:00 06/16/18 18:00 06/16/18 19:00 Temperature 98.3 F Pulse Rate 95 H 93 H 96 H Respiratory Rate Blood Pressure Pulse Oximetry 100 100 100 06/16/18 20:00 06/16/18 21:00 06/16/18 21:47 Temperature 98.1 F Pulse Rate 104 H 83 93 H Respiratory Rate Blood Pressure 143/63 H 127/58 L 133/60 Pulse Oximetry 100 98 96 06/16/18 22:00 06/16/18 22:02 06/16/18 23:00 Temperature Pulse Rate 91 H 87 98 H Respiratory Rate Blood Pressure 105/57 L Pulse Oximetry 99 100 06/16/18 23:03 06/16/18 23:13 06/17/18 00:00 Temperature 97.8 F Pulse Rate 95 H 97 H Respiratory Rate 18 Blood Pressure 98/51 L Pulse Oximetry 98 95 06/17/18 00:05 06/17/18 00:24 06/17/18 01:00 Temperature Pulse Rate 90 97 H 99 H Respiratory Rate Blood Pressure 123/60 Pulse Oximetry 97 100 06/17/18 01:13 06/17/18 02:00 06/17/18 02:13 Temperature Pulse Rate 104 H 101 H 103 H Respiratory Rate Blood Pressure 101/50 L 134/63 Pulse Oximetry 95 100 06/17/18 02:17 06/17/18 03:00 06/17/18 03:13 Temperature Pulse Rate 99 H 103 H 105 H Respiratory Rate Blood Pressure 123/57 L Pulse Oximetry 06/17/18 04:00 06/17/18 04:10 06/17/18 04:13 Temperature 98.1 F Pulse Rate 107 H 94 H 100 H Respiratory Rate Blood Pressure 124/59 L Pulse Oximetry 100 100 06/17/18 05:00 06/17/18 05:13 06/17/18 06:00 Temperature Pulse Rate 102 H 100 H 100 H Respiratory Rate Blood Pressure 134/60 Pulse Oximetry 99 100 99 06/17/18 06:13 06/17/18 07:00 06/17/18 07:52 Temperature Pulse Rate 101 H 103 H 103 H Respiratory Rate Blood Pressure 125/58 L 114/57 L Pulse Oximetry 99 99 100 06/17/18 08:00 06/17/18 08:13 Temperature 98.4 F Pulse Rate 104 H 102 H Respiratory Rate Blood Pressure 114/56 L Pulse Oximetry 99 100 Intake & Output 06/16/18 06/17/18 06/17/18 18:59 06:59 18:59 Intake Total 2151 / 2151 1149.5 / 1149.5 262.5 / 262.5 Output Total 2500 / 2500 1500 / 1500 Balance -349 / -349 -350.5 / -350.5 262.5 / 262.5 Weight 71.5 kg Intake: IV 1000 / 1000 512.5 / 512.5 262.5 / 262.5 NS Inj 1,000 ML @ 100 mls/hr IV 1000 / 1000 250 / 250 .CONT .Q10H VALERY Rx#:[id number] Vancomycin Inj 1,250 MG In NS 262.5 / 262.5 262.5 / 262.5 Inj 250 ML @ 250 mls/hr IV.SIG Q24H VALERY Rx#:[id number] Oral 180 / 180 Tube Feeding 571 / 571 537 / 537 Tube Irrigant 400 / 400 100 / 100 Output: Urine Amount (Catheter) 2500 / 2500 1500 / 1500 Indwelling Urethral Catheter 2500 / 2500 1500 / 1500 Other: Date of Last Bowel Movement 06/16/18 06/16/18 06/16/18 # Bowel Movements 1 Narrative: General patient in no acute distress, patient is alert and oriented x2 to person and time however she believes she is at home. HEENT extraocular movements are intact, clear oropharyngeal mucosa, no JVD Cardiovascular S1-S2 audible, RRR, no murmurs rubs or gallops Respiratory clear to auscultation bilaterally Abdomen soft, nontender, nondistended, normal bowel sounds Extremities no edema 2+ distal pulses in bilateral upper and lower extremities Neuro cranial nerves II through XII intact Results Procedures completed during hospitalization: EGD IA embolization Ex lap Gastrojejunostomy Completed studies during hospitalization: Pending at discharge 05/18/18 14:20 Surgical [PTH] Routine 05/20/18 22:00 Surgical [PTH] DAILY Labs on day of discharge: Labs from last 24 hours 06/17/18 06/17/18 06/16/18 05:05 05:05 10:57 WBC 5.2 RBC 2.86 L Hgb 8.6 L Hct 24.7 L MCV 86.6 MCH 30.2 MCHC 34.9 RDW 17.5 H Plt Count 75 L MPV 8.7 Sodium 140 Potassium 3.0 L Chloride 109 H Carbon Dioxide 20.5 L Anion Gap 11 BUN 50 H Creatinine 1.04 H Estimated GFR 51 L Random Glucose 91 Calcium 8.5 Blood Type O Positive Blood Type Recheck Not needed Antibody Screen Negative MTS Gel Crossmatch See Detail - Impressions ITS Impressions GI Bleed Scan Nuclear Medicine 05/19/18 00:00 CONCLUSION: 1. 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 Patient was emergently brought to the interventional radiology department from the nuclear medicine department for angiography and intervention. Mesenteric Arteriogram 05/19/18 14:37 CONCLUSION: 1. 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 2. 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 PICC Line Insertion 05/20/18 00:00 CONCLUSION: 1. Uncomplicated central venous Power PICC line placement. 2. The PICC line can be used immediately. Abdomen X-Ray 05/28/18 05:23 CONCLUSION: No dilated bowel loops. Abdomen/Pelvis CT 05/29/18 00:00 CONCLUSION: 1. Since the prior CT, midline laparotomy with gastrojejunostomy has been performed. Anastomosis appears patent. There is a nasogastric tube which extends beyond the site of surgery and is in the first portion of the duodenum. Unchanged metallic structure near the ligament of Treitz, etiology uncertain. 2. A jejunostomy tube has also been placed without evidence of an acute complication. 3. Small, nonspecific free fluid in the pelvic cavity. No evidence of abscess. 4. No acute solid organ abnormality. Cysts of both kidneys and nonobstructing stones of the left kidney are again noted. 5. Sigmoid colon diverticulosis without diverticulitis. Chest CT 05/29/18 11:52 CONCLUSION: 1. 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 2. Pneumonia with volume loss in the right lower lobe. 3. Coronary artery calcification. 4. Emphysema. Gastrografin Study 06/02/18 00:00 CONCLUSION: 1. During the first 30 minutes there was only minimal passage of contrast into the gastrojejunostomy. 2. On the delayed 1 hour film there is apparent contrast noted in the more distal small bowel. Chest X-Ray 06/03/18 06:00 CONCLUSION: No acute cardiopulmonary disease identified. Discharge Plan - Discharge Disposition Patient Disposition: [facility] Inpatient - Discharge Condition Condition: Stable - Discharge Order Discharge Orders: Discharge Order (Routine); Ordered 06/17/18 Ordered By: Lanie Dill General Surgery Clear for Discharge (Routine); Ordered 06/17/18 Ordered By: Fay Becerra - Physicians Team Primary Care Provider: UNKNOWN, Attending Provider: Lanie Dill Other Providers: Mariana Lopez MD ; Aureliano Benoit MD ; Danny Alford MD ; Jarad James MD ; [facility] ; Abbie Dhillon MD ; Sergio Pack MD ; [facility] ; Fay Becerra ARNP
[2018-06-17] MEDS: Potassium Chlor 20 mEq Premix 20 MEQ/100 ML PIGGYBACK IV.SIG PRN ×4 (14:36→22:17)
[2018-06-17] MEDS ORDERED: Acetaminophen-HYDROcodone 325/7.5 Liq 15 ML UDC J-TUBE PRN (14:37)
[2018-06-18] MEDS: Sod Chloride 0.9% Inj 1,000 ML IV.CONT SCH (04:39)
[2018-06-18 06:13] LABS: Baso % (Auto) 0.5 % (0.0-2.0); Eos # (Auto) 0.2 th/mm3 (0.0-0.4); Eos % (Auto) 3.8 % (0.0-4.0); Hemoglobin 8.3 gm/dL (11.6-15.3); Lymph # (Auto) 0.4 th/mm3 (1.0-4.8); Lymph % (Auto) 6.3 % (9.0-44.0); Mean Corpuscular HGB Conc 33.2 % (32.0-36.0); Mean Corpuscular Hemoglobin 29.5 pg (27.0-34.0); Mean Corpuscular Volume 88.8 fL (80.0-100.0); Mean Platelet Volume 8.5 fL (7.0-11.0); Mono # (Auto) 0.4 th/mm3 (0.0-0.9); Mono % (Auto) 7.5 % (0.0-8.0); Neut # (Auto) 4.7 th/mm3 (1.8-7.7); Neut % (Auto) 81.9 % (16.0-70.0); Platelet Count 85 th/mm3 (150-450); Red Blood Count 2.82 mil/mm3 (4.00-5.30); Red Cell Distribution Width 17.8 % (11.6-17.2); White Blood Count 5.7 th/mm3 (4.0-11.0)
[2018-06-18 06:41] LABS: Calcium 8.1 mg/dL (8.5-10.1); Carbon Dioxide 17.2 meq/L (21.0-32.0); Potassium 4.2 meq/L (3.5-5.1)
[2018-06-18 08:11] LABS: Eosinophils 5 % (0-4); Lymphocytes 5 % (9-44); Monocytes 7 % (0-8); Myelocytes 1 % (0-0)
[2018-06-18 08:12] LABS: Ovalocytes 1+; Platelet Morphology Normal (Normal)
[2018-06-18] MEDS: Sennosides Liq 8.8 MG/5 ML UDC PO SCH (08:32)
[2018-06-18] MEDS: Lidocaine 5% Patch T-DERMAL SCH (08:32)
[2018-06-18] MEDS: Metoprolol Tartrate 25 MG Tablet PO SCH (08:33)
[2018-06-18] MEDS: Docusate Sodium Liq 100 MG/10 ML UDC PO SCH (08:33)
[2018-06-18] MEDS: Lisinopril 5 MG Tablet PO SCH (08:33)
[2018-06-18] MEDS: amLODIPine 5 MG Tablet J-TUBE SCH (08:33)
[2018-06-18] MEDS: Artificial Tears Opth Oint 3.5 GM Tube EACH EYE SCH (08:33)
[2018-06-18] MEDS: Heparin Central Flush 100 UNIT/ML 5 ML Vial IV.FLUSH SCH (08:33)
[2018-06-18] MEDS: Pantoprazole Inj 40 MG Vial IV.PUSH SCH (09:10)
[2018-06-18] MEDS: Vancomycin Inj 1,250 MG in Sodium Chlor 0.9% Inj 250 ML IV.SIG SCH (09:10)
--- NOTE | 2018-06-18 12:19 | P.PNGS ---
Subjective Patient reports: no new complaints (Patient is awake and alert. Physical therapist is at her bedside. She remains pleasantly confused. She was reoriented. She said she threw up a little bit this morning. She says she does every morning and then the rest of the day she feels fine. [facility] Physical Exam Vital signs: Vital Signs 06/17/18 13:00 06/17/18 13:13 06/17/18 14:00 Temperature Pulse Rate 97 H 97 H 100 H Respiratory Rate Blood Pressure 99/46 L Pulse Oximetry 98 96 06/17/18 14:13 06/17/18 15:00 06/17/18 15:13 Temperature Pulse Rate 102 H 99 H 99 H Respiratory Rate Blood Pressure 103/51 L 114/54 L Pulse Oximetry 98 99 97 06/17/18 16:00 06/17/18 16:13 06/17/18 17:00 Temperature 98.7 F Pulse Rate 99 H 97 H 92 H Respiratory Rate Blood Pressure 116/53 L Pulse Oximetry 97 100 100 06/17/18 17:13 06/17/18 18:00 06/17/18 18:13 Temperature Pulse Rate 96 H 90 93 H Respiratory Rate Blood Pressure 129/58 L 116/56 L Pulse Oximetry 100 100 100 06/17/18 19:00 06/17/18 19:13 06/17/18 20:00 Temperature 97.9 F Pulse Rate 94 H 97 H 90 Respiratory Rate 18 Blood Pressure 119/56 L Pulse Oximetry 100 99 98 06/17/18 20:13 06/17/18 21:00 06/17/18 21:13 Temperature 97.9 F Pulse Rate 95 H 70 71 Respiratory Rate Blood Pressure 110/53 L 90/48 L Pulse Oximetry 94 L 99 97 06/17/18 21:17 06/17/18 21:23 06/17/18 21:30 Temperature Pulse Rate 71 72 78 Respiratory Rate Blood Pressure 87/47 L 97/52 L Pulse Oximetry 97 99 94 L 06/17/18 21:45 06/17/18 22:00 06/17/18 22:15 Temperature Pulse Rate 81 84 87 Respiratory Rate Blood Pressure 113/55 L 106/51 L 109/56 L Pulse Oximetry 97 96 93 L 06/17/18 22:30 06/17/18 22:45 06/17/18 23:00 Temperature Pulse Rate 85 82 83 Respiratory Rate Blood Pressure 92/47 L 104/53 L 117/58 L Pulse Oximetry 97 97 98 06/17/18 23:15 06/17/18 23:30 06/17/18 23:31 Temperature Pulse Rate 81 83 84 Respiratory Rate Blood Pressure 116/58 L 86/51 L 106/54 L Pulse Oximetry 98 99 99 06/17/18 23:45 06/18/18 00:00 06/18/18 00:15 Temperature Pulse Rate 86 79 76 Respiratory Rate Blood Pressure 110/54 L 94/44 L 106/53 L Pulse Oximetry 100 97 98 06/18/18 00:30 06/18/18 00:45 06/18/18 01:00 Temperature 97.9 F Pulse Rate 79 85 86 Respiratory Rate Blood Pressure 95/48 L 113/56 L 113/54 L Pulse Oximetry 98 96 98 06/18/18 01:15 06/18/18 01:30 06/18/18 01:45 Temperature Pulse Rate 90 89 94 H Respiratory Rate Blood Pressure 123/57 L 127/60 101/46 L Pulse Oximetry 97 98 97 06/18/18 02:00 06/18/18 02:15 06/18/18 02:30 Temperature Pulse Rate 93 H 95 H 98 H Respiratory Rate Blood Pressure 107/53 L 108/56 L 112/58 L Pulse Oximetry 97 96 97 06/18/18 02:45 06/18/18 03:00 06/18/18 03:15 Temperature Pulse Rate 93 H 95 H 93 H Respiratory Rate Blood Pressure 128/59 L 131/62 129/61 Pulse Oximetry 96 97 99 06/18/18 03:30 06/18/18 03:45 06/18/18 04:00 Temperature 98 F Pulse Rate 96 H 96 H 98 H Respiratory Rate Blood Pressure 134/60 133/62 146/65 H Pulse Oximetry 98 98 100 06/18/18 04:15 06/18/18 04:30 06/18/18 04:45 Temperature Pulse Rate 97 H 98 H 99 H Respiratory Rate Blood Pressure 135/62 146/66 H 133/61 Pulse Oximetry 99 99 100 06/18/18 05:00 06/18/18 05:15 06/18/18 05:30 Temperature Pulse Rate 99 H 98 H 100 H Respiratory Rate Blood Pressure 136/60 144/63 H 135/62 Pulse Oximetry 100 100 100 06/18/18 05:45 06/18/18 06:00 06/18/18 06:15 Temperature Pulse Rate 102 H 104 H 102 H Respiratory Rate Blood Pressure 138/63 143/65 H 133/63 Pulse Oximetry 100 100 100 06/18/18 06:30 06/18/18 06:45 06/18/18 07:00 Temperature Pulse Rate 102 H 104 H 104 H Respiratory Rate Blood Pressure 131/60 115/56 L 120/57 L Pulse Oximetry 100 98 100 06/18/18 07:15 06/18/18 07:30 06/18/18 07:45 Temperature Pulse Rate 103 H 101 H 104 H Respiratory Rate Blood Pressure 119/57 L 124/59 L 136/63 Pulse Oximetry 100 100 100 06/18/18 08:00 06/18/18 08:15 06/18/18 08:30 Temperature 98.1 F Pulse Rate 103 H 109 H 105 H Respiratory Rate Blood Pressure 132/60 145/65 H 132/55 L Pulse Oximetry 100 100 100 06/18/18 08:35 06/18/18 08:45 06/18/18 09:00 Temperature Pulse Rate 107 H 95 H Respiratory Rate 18 Blood Pressure 139/61 120/58 L Pulse Oximetry 100 100 06/18/18 09:15 06/18/18 09:30 06/18/18 09:45 Temperature Pulse Rate 73 72 76 Respiratory Rate Blood Pressure 117/59 L 110/49 L 111/54 L Pulse Oximetry 100 98 100 06/18/18 10:00 Temperature Pulse Rate 80 Respiratory Rate Blood Pressure 109/54 L Pulse Oximetry 100 Intake & Output 06/17/18 06/18/18 06/18/18 18:59 06:59 18:59 Intake Total 1462.5 / 1462.5 3521 / 3521 Output Total 800 / 800 500 / 500 Balance 662.5 / 662.5 3021 / 3021 Weight 73.7 kg Intake: IV 462.5 / 462.5 2450 / 2450 NS Inj 1,000 ML @ 100 mls/hr IV 1750 / 1750 .CONT .Q10H VALERY Rx#:[id number] LR 1000 mL Inj 500 ML @ 500 mls 500 / 500 /hr IV.SIG ONCE ONE Rx#: [id number] KCl 20 mEq Premix Inj 20 meq In 200 / 200 200 / 200 100 ml @ 50 mls/hr IV.SIG Q2H PRN Rx#:[id number] Vancomycin Inj 1,250 MG In NS 262.5 / 262.5 Inj 250 ML @ 250 mls/hr IV.SIG Q24H VALERY Rx#:[id number] Oral 100 / 100 Tube Feeding 600 / 600 571 / 571 Water Bolus Amount 400 / 400 400 / 400 Output: Urine Amount (Catheter) 800 / 800 500 / 500 Indwelling Urethral Catheter 800 / 800 Straight 500 / 500 Other: Date of Last Bowel Movement 06/16/18 06/16/18 Narrative: She is awake and alert. She is pleasantly confused. Her abdomen is soft and nondistended. She is tolerating tube feeds. Her extremities are nonedematous. - Urinary Catheter Management Indwelling Urethral Catheter Cath placed during this visit: yes, but has since been removed by the nurse Urethral indwelling: No Reason for continuing: Acute urinary retention Insertion date: 06/14/18 Insertion time: 18:00 Removal date: 06/10/18 Removal time: 12:10 Straight Cath placed during this visit: no Results - Labs 06/18/18 04:47 06/18/18 04:47 Laboratory Results - last 24 hr 06/16/18 06/18/18 06/18/18 10:57 04:47 04:47 WBC 5.7 RBC 2.82 L Hgb 8.3 L Hct 25.0 L MCV 88.8 MCH 29.5 MCHC 33.2 RDW 17.8 H Plt Count 85 L MPV 8.5 Prelim Diff (Auto) Slide review pending Neut % (Auto) 81.9 H Lymph % (Auto) 6.3 L [place] % (Auto) 7.5 Eos % (Auto) 3.8 Baso % (Auto) 0.5 Neut # (Auto) 4.7 Lymph # (Auto) 0.4 L [place] # (Auto) 0.4 Eos # (Auto) 0.2 Baso # (Auto) 0.0 WBC Differential Manual diff final Seg Neuts % (Manual) 81 H Band Neuts % (Manual) 1 Lymphocytes % (Manual) 5 L Monocytes % (Manual) 7 Eosinophils % (Manual) 5 H Myelocytes % (Man) 1 H Abs Neuts (Manual) 4.7 Differential Comment . Platelet Estimate Low L Platelet Morphology Normal Ovalocytes 1+ H Sodium 140 Potassium 4.2 D Chloride 113 H Carbon Dioxide 17.2 L Anion Gap 10 BUN 40 H Creatinine 1.04 H Estimated GFR 51 L Random Glucose 111 H Calcium 8.1 L Blood Type O Positive Blood Type Recheck Not needed Antibody Screen Negative MTS Gel Crossmatch See Detail - Imaging Imaging: ITS Impressions GI Bleed Scan Nuclear Medicine 05/19/18 00:00 CONCLUSION: 1. 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 Patient was emergently brought to the interventional radiology department from the nuclear medicine department for angiography and intervention. Mesenteric Arteriogram 05/19/18 14:37 CONCLUSION: 1. 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 2. 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 PICC Line Insertion 05/20/18 00:00 CONCLUSION: 1. Uncomplicated central venous Power PICC line placement. 2. The PICC line can be used immediately. Abdomen X-Ray 05/28/18 05:23 CONCLUSION: No dilated bowel loops. Abdomen/Pelvis CT 05/29/18 00:00 CONCLUSION: 1. Since the prior CT, midline laparotomy with gastrojejunostomy has been performed. Anastomosis appears patent. There is a nasogastric tube which extends beyond the site of surgery and is in the first portion of the duodenum. Unchanged metallic structure near the ligament of Treitz, etiology uncertain. 2. A jejunostomy tube has also been placed without evidence of an acute complication. 3. Small, nonspecific free fluid in the pelvic cavity. No evidence of abscess. 4. No acute solid organ abnormality. Cysts of both kidneys and nonobstructing stones of the left kidney are again noted. 5. Sigmoid colon diverticulosis without diverticulitis. Chest CT 05/29/18 11:52 CONCLUSION: 1. 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 2. Pneumonia with volume loss in the right lower lobe. 3. Coronary artery calcification. 4. Emphysema. Gastrografin Study 06/02/18 00:00 CONCLUSION: 1. During the first 30 minutes there was only minimal passage of contrast into the gastrojejunostomy. 2. On the delayed 1 hour film there is apparent contrast noted in the more distal small bowel. Chest X-Ray 06/03/18 06:00 CONCLUSION: No acute cardiopulmonary disease identified. Assessment and Plan - Assessment (1) GI bleed Code(s): K92.2 - Gastrointestinal hemorrhage, unspecified Status: Acute Plan: 82 year old female s/p exploratory laparotomy, gastrojejunostomy, closure, j tube -S/p transfusion of 1 unit PRBCs for Hmg 7.0; today 8.6 -NGT removed; still with episodes of vomiting -Replace NGT and place to [facility] if vomiting occurs again -Tolerating TF at goal -Continue aggressive PT/OT -Discussed with Tarsha from [facility] --- they will take patient with NGT if needed. -GS clear for DC to [facility] today ----informed Tarsha--she will touch base with Medicine team -[facility] - Plan I personally evaluated the patient room 1309. Patient remains pleasantly confused. She told me a very detailed story about her trip to a baseball game last night with Erick, who apparently was her nurse last night. She said he was very courteous to her and treated her nicely. I tried to reorient her and let her know what was happening and she admitted she has a hard time understanding the whole hospital thing. Her abdomen is soft and nondistended and nontender. Her incisions well approximated. Her jejunostomy feeding tube remains in place and there is no erythema or drainage around the tube. She has normal bowel sounds. She did have emesis this morning of a small of dark fluid. She was examined in the presence of her bedside nurse. Plans are being made for her to transition to [facility] tomorrow. I spoke on the telephone with her daughter Raciel Conley and discussed her concern regarding her mental status. I assured her many 82-year-old people who have been in the [facility] for a month and went through the surgeries and the illnesses that are would be disoriented at this point. Unless there is an underlying dementia that is been exacerbated and hastened by a hospital stay she will likely return to her previous mental state of health. The exam, history, and the medical decision-making described in the above note were completed with the assistance of the mid-level provider. I reviewed and agree with the findings presented. I attest that I had a [id number] encounter with the patient on the same day, and personally performed and documented my assessment and findings in the medical record. I personally evaluated the patient today 06/18/2018 in room 1309. There is been no significant change overnight. She is anticipating transfer to the rehab facility. As far as I am concerned she can have ice chips sips of water and sips of clear liquids. I will be out of town through June 25. I will revisit her when I return to [facility]. If a general surgeon is needed please call my office or 1 of my partners covering our practice while I am out of town. Thank you
--- NOTE | 2018-06-18 12:36 | P.PNIM ---
Subjective Interval history: Patient laying down in bed. She does not appear to be in any acute distress. Physical Exam Vital signs: Vital Signs 06/17/18 13:00 06/17/18 13:13 06/17/18 14:00 Temperature Pulse Rate 97 H 97 H 100 H Respiratory Rate Blood Pressure 99/46 L Pulse Oximetry 98 96 06/17/18 14:13 06/17/18 15:00 06/17/18 15:13 Temperature Pulse Rate 102 H 99 H 99 H Respiratory Rate Blood Pressure 103/51 L 114/54 L Pulse Oximetry 98 99 97 06/17/18 16:00 06/17/18 16:13 06/17/18 17:00 Temperature 98.7 F Pulse Rate 99 H 97 H 92 H Respiratory Rate Blood Pressure 116/53 L Pulse Oximetry 97 100 100 06/17/18 17:13 06/17/18 18:00 06/17/18 18:13 Temperature Pulse Rate 96 H 90 93 H Respiratory Rate Blood Pressure 129/58 L 116/56 L Pulse Oximetry 100 100 100 06/17/18 19:00 06/17/18 19:13 06/17/18 20:00 Temperature 97.9 F Pulse Rate 94 H 97 H 90 Respiratory Rate 18 Blood Pressure 119/56 L Pulse Oximetry 100 99 98 06/17/18 20:13 06/17/18 21:00 06/17/18 21:13 Temperature 97.9 F Pulse Rate 95 H 70 71 Respiratory Rate Blood Pressure 110/53 L 90/48 L Pulse Oximetry 94 L 99 97 06/17/18 21:17 06/17/18 21:23 06/17/18 21:30 Temperature Pulse Rate 71 72 78 Respiratory Rate Blood Pressure 87/47 L 97/52 L Pulse Oximetry 97 99 94 L 06/17/18 21:45 06/17/18 22:00 06/17/18 22:15 Temperature Pulse Rate 81 84 87 Respiratory Rate Blood Pressure 113/55 L 106/51 L 109/56 L Pulse Oximetry 97 96 93 L 06/17/18 22:30 06/17/18 22:45 06/17/18 23:00 Temperature Pulse Rate 85 82 83 Respiratory Rate Blood Pressure 92/47 L 104/53 L 117/58 L Pulse Oximetry 97 97 98 06/17/18 23:15 06/17/18 23:30 06/17/18 23:31 Temperature Pulse Rate 81 83 84 Respiratory Rate Blood Pressure 116/58 L 86/51 L 106/54 L Pulse Oximetry 98 99 99 06/17/18 23:45 06/18/18 00:00 06/18/18 00:15 Temperature Pulse Rate 86 79 76 Respiratory Rate Blood Pressure 110/54 L 94/44 L 106/53 L Pulse Oximetry 100 97 98 06/18/18 00:30 06/18/18 00:45 06/18/18 01:00 Temperature 97.9 F Pulse Rate 79 85 86 Respiratory Rate Blood Pressure 95/48 L 113/56 L 113/54 L Pulse Oximetry 98 96 98 06/18/18 01:15 06/18/18 01:30 06/18/18 01:45 Temperature Pulse Rate 90 89 94 H Respiratory Rate Blood Pressure 123/57 L 127/60 101/46 L Pulse Oximetry 97 98 97 06/18/18 02:00 06/18/18 02:15 06/18/18 02:30 Temperature Pulse Rate 93 H 95 H 98 H Respiratory Rate Blood Pressure 107/53 L 108/56 L 112/58 L Pulse Oximetry 97 96 97 06/18/18 02:45 06/18/18 03:00 06/18/18 03:15 Temperature Pulse Rate 93 H 95 H 93 H Respiratory Rate Blood Pressure 128/59 L 131/62 129/61 Pulse Oximetry 96 97 99 06/18/18 03:30 06/18/18 03:45 06/18/18 04:00 Temperature 98 F Pulse Rate 96 H 96 H 98 H Respiratory Rate Blood Pressure 134/60 133/62 146/65 H Pulse Oximetry 98 98 100 06/18/18 04:15 06/18/18 04:30 06/18/18 04:45 Temperature Pulse Rate 97 H 98 H 99 H Respiratory Rate Blood Pressure 135/62 146/66 H 133/61 Pulse Oximetry 99 99 100 06/18/18 05:00 06/18/18 05:15 06/18/18 05:30 Temperature Pulse Rate 99 H 98 H 100 H Respiratory Rate Blood Pressure 136/60 144/63 H 135/62 Pulse Oximetry 100 100 100 06/18/18 05:45 06/18/18 06:00 06/18/18 06:15 Temperature Pulse Rate 102 H 104 H 102 H Respiratory Rate Blood Pressure 138/63 143/65 H 133/63 Pulse Oximetry 100 100 100 06/18/18 06:30 06/18/18 06:45 06/18/18 07:00 Temperature Pulse Rate 102 H 104 H 104 H Respiratory Rate Blood Pressure 131/60 115/56 L 120/57 L Pulse Oximetry 100 98 100 06/18/18 07:15 06/18/18 07:30 06/18/18 07:45 Temperature Pulse Rate 103 H 101 H 104 H Respiratory Rate Blood Pressure 119/57 L 124/59 L 136/63 Pulse Oximetry 100 100 100 06/18/18 08:00 06/18/18 08:15 06/18/18 08:30 Temperature 98.1 F Pulse Rate 103 H 109 H 105 H Respiratory Rate Blood Pressure 132/60 145/65 H 132/55 L Pulse Oximetry 100 100 100 06/18/18 08:35 06/18/18 08:45 06/18/18 09:00 Temperature Pulse Rate 107 H 95 H Respiratory Rate 18 Blood Pressure 139/61 120/58 L Pulse Oximetry 100 100 06/18/18 09:15 06/18/18 09:30 06/18/18 09:45 Temperature Pulse Rate 73 72 76 Respiratory Rate Blood Pressure 117/59 L 110/49 L 111/54 L Pulse Oximetry 100 98 100 06/18/18 10:00 Temperature Pulse Rate 80 Respiratory Rate Blood Pressure 109/54 L Pulse Oximetry 100 Intake & Output 06/17/18 06/18/18 06/18/18 18:59 06:59 18:59 Intake Total 1462.5 / 1462.5 3521 / 3521 Output Total 800 / 800 500 / 500 Balance 662.5 / 662.5 3021 / 3021 Weight 73.7 kg Intake: IV 462.5 / 462.5 2450 / 2450 NS Inj 1,000 ML @ 100 mls/hr IV 1750 / 1750 .CONT .Q10H [facility] Rx#:[id number] LR 1000 mL Inj 500 ML @ 500 mls 500 / 500 /hr IV.SIG ONCE ONE Rx#: [id number] KCl 20 mEq Premix Inj 20 meq In 200 / 200 200 / 200 100 ml @ 50 mls/hr IV.SIG Q2H PRN Rx#:[id number] Vancomycin Inj 1,250 MG In NS 262.5 / 262.5 Inj 250 ML @ 250 mls/hr IV.SIG Q24H [facility] Rx#:[id number] Oral 100 / 100 Tube Feeding 600 / 600 571 / 571 Water Bolus Amount 400 / 400 400 / 400 Output: Urine Amount (Catheter) 800 / 800 500 / 500 Indwelling Urethral Catheter 800 / 800 Straight 500 / 500 Other: Date of Last Bowel Movement 06/16/18 06/16/18 Narrative: General patient in no acute distress, patient is alert and oriented x2 to person and time however she believes she is at home. HEENT extraocular movements are intact, clear oropharyngeal mucosa, no JVD Cardiovascular S1-S2 audible, RRR, no murmurs rubs or gallops Respiratory clear to auscultation bilaterally Abdomen soft, nontender, nondistended, normal bowel sounds Extremities no edema 2+ distal pulses in bilateral upper and lower extremities Neuro cranial nerves II through XII intact - Urinary Catheter Management Indwelling Urethral Catheter Cath placed during this visit: yes, but has since been removed by the nurse Urethral indwelling: No Reason for continuing: Acute urinary retention Insertion date: 06/14/18 Insertion time: 18:00 Removal date: 06/10/18 Removal time: 12:10 Straight Cath placed during this visit: no Results - Labs CBC & Chem 7: 06/18/18 04:47 06/18/18 04:47 Laboratory Results - last 24 hr 06/16/18 06/18/18 06/18/18 10:57 04:47 04:47 WBC 5.7 RBC 2.82 L Hgb 8.3 L Hct 25.0 L MCV 88.8 MCH 29.5 MCHC 33.2 RDW 17.8 H Plt Count 85 L MPV 8.5 Prelim Diff (Auto) Slide review pending Neut % (Auto) 81.9 H Lymph % (Auto) 6.3 L [place] % (Auto) 7.5 Eos % (Auto) 3.8 Baso % (Auto) 0.5 Neut # (Auto) 4.7 Lymph # (Auto) 0.4 L [place] # (Auto) 0.4 Eos # (Auto) 0.2 Baso # (Auto) 0.0 WBC Differential Manual diff final Seg Neuts % (Manual) 81 H Band Neuts % (Manual) 1 Lymphocytes % (Manual) 5 L Monocytes % (Manual) 7 Eosinophils % (Manual) 5 H Myelocytes % (Man) 1 H Abs Neuts (Manual) 4.7 Differential Comment . Platelet Estimate Low L Platelet Morphology Normal Ovalocytes 1+ H Sodium 140 Potassium 4.2 D Chloride 113 H Carbon Dioxide 17.2 L Anion Gap 10 BUN 40 H Creatinine 1.04 H Estimated GFR 51 L Random Glucose 111 H Calcium 8.1 L Blood Type O Positive Blood Type Recheck Not needed Antibody Screen Negative MTS Gel Crossmatch See Detail - Procedures EGD IA embolization Ex lap Gastrojejunostomy Assessment and Plan - Plan Upper GI bleed Acute hypoxic and hypercarbic respiratory failure-resolved s/p emergent ex lap with duodenal and jejunal resection, initially left in discontinuity with open abdomen 05/20 Now reconstructed with abdominal wall closure. Severe acute anemia secondary to blood loss requiring transfusion- persistent duodenal ulcer. Postop as above. Type II NSTEMI secondary to demand ischemia from severe anemia s/p EGD 05/19, 05/20. s/p emergent IR embolization 05/19 severe acute thrombocytopenia - ITP improving acute protein calorie malnutrition- moderate to severe Fluid overload sepsis Pneumonia Staph aureus bacteremia Right hilar mass H/o Right lower lobectomy, and adenocarcinoma of the lung Probable ICU delirium vs early dementia ARMANDO 06/18/18 No change in the patients discharge plan. Patient was kept on the floor and was unable to be transferred to [place] because she had received IV fentanyl. Patient will be transferred to [place] [facility] today. See discharge summary regarding hospital course and recommendations after transfer. 82-year-old female with a history significant for amyloidosis with prolonged hospital course and has been under the care of the critical care service for GI bleeding. The patient underwent emergent IA embolization 05/19. s/p EGD 05/19 and again 05/20 with ischemia present. s/p emergent exploratory laparotomy. She is postop resection of fourth portion of duodenum with duodenal diverticulum and proximal jejunum due to GI bleed and ischemic necrosis. She had a gastrojejunostomy and closure of abdominal wall and placement of feeding jejunostomy. The surgery team is following the patient and have cleared her to go back to [facility] continued rehab. She was given a unit of PRBCs yesterday and her Hgb today is up to 8.6 from 7.0 Blood cultures from 05/28 grew MSSA, repeat blood cxs are negative. Continue IV antibiotics for a total of 4 wks until 06/29/17 CT chest shows a right hilar mass from 05/29/18. Patient was evaluated by Dr. Pack and the pts daughter Nohemy Davis wants to hold off on bronchoscopy for now and will decide on it at a later day. Patient will need to be re evaluated by Pulmonary and Oncology when they are ready to decide on the bronchoscopy. NGT has been discontinued, Continue feeds through the j tube. Continue to monitor electrolytes and Hgb, Plt. Keep PLT above 50,000. Continue Protonix.
[2018-06-19] MEDS ORDERED: Pharmacy Ordered Lab Info OTHER ONE (09:45)
== END 2018-06-18 12:42 ==
LOC: NEPE 03:24 → NEDA 06:05 → N06 07:49 → N03 05-19 15:51
PROVIDERS: ADMIT Hospitalist; ATTEND Hospitalist
PROC: PANENDO (2018-05-18 11:15)